=== PATIENT | male | born 1960 | race Two or more races ===

== ENCOUNTER 2023-06-04 09:35 | Outpatient (OUT) | payer OTHER, SELFPAY ==
[2023-06-04 11:11] LABS: Prostate Specific Antigen Dx 0.48 ng/mL (<=4.00)
== END 2023-06-04 09:36 | disposition home or self-care (01) ==
PROVIDERS: PCP Nurse Practitioner Family; Visit Provider Urology
DX: N40.1 Benign prostatic hyperplasia with lower urinary tract symptoms (principal)
CPT/HCPCS: 36415; 84153

== ENCOUNTER 2024-11-19 09:17 | Outpatient (OUT) | payer OTHER, SELFPAY ==
--- NOTE | 2024-11-19 09:25 | US_ITS ---
The [address] [address] Patient Name: IRMA RAMÍREZ MRN: [id number] date: 1960 Sex: M Assigned Patient Location: US Current Patient Location: US Accession/Order Number: [id number] Exam Date: 11/19/2024 11:43 Report Date: 11/19/2024 11:47 At the request of: PRISCILA ODOM Procedure: US abdominal aortic aneurysm Aortic ultrasound Reason for exam: Follow-up AAA. Comparison: Ultrasound 02/08/2022 Technique: Grayscale, spectral and color Doppler images of the abdominal aorta were obtained. Findings: Imaging of the distal aorta demonstrate fusiform type aneurysm measuring 6.6 cm in greatest dimension. The remaining visualized portions of the aorta appears normal in caliber. US/US abdominal aortic aneurysm Impression: Fusiform type abdominal aortic aneurysm measuring 6.6 cm in greatest dimension. This has increased in size since the 2021 study. Vascular surgery consultation is recommended. Impression dictated by: Manfred Colorado Jr., D.O.11/19/2024 11:47 AM Dictation Location: [place] [address] Electronically authenticated by: [id number] Y Date: 11/19/2024 11:47
== END 2024-11-19 09:18 | disposition home or self-care (01) ==
LOC: US 09:21
PROVIDERS: PCP Nurse Practitioner Family; Visit Provider Family Medicine
DX: I71.40 Abdominal aortic aneurysm, without rupture, unspecified (principal)
CPT/HCPCS: 76775

== ENCOUNTER 2024-12-10 07:21 | Outpatient (OUT) | payer OTHER, SELFPAY ==
--- OUTSIDE RECORDS SUMMARY | 2024-12-10 07:25 | XMS_ITS | CCD ---
Author Organization [facility] [employer] Care Team Providers Care Security Officers And Guards Name Role Phone REN TRAE KASANDRA Admitting Unavailable ROSS, TRAE KASANDRA Attending Unavailable ROSS, TRAE KASANDRA Primary Care Unavailable ROSS, TRAE KASANDRA Consulting Unavailable ROSS, TRAE KASANDRA Admitting Unavailable ROSS, TRAE KASANDRA Attending Unavailable ROSS, TRAE KASANDRA Primary Care Unavailable EUGENIO, DR PAK Admitting Unavailable BROWNING, DR PAK Attending Unavailable REN, TRAE KASANDRA Primary Care Unavailable BROWNING, DR PAK Consulting Unavailable SANDRA, DR VESTA Harrison Admitting Unavailable SANDRA, DR VESTA Harrison Attending Unavailable REN, TRAE KASANDRA Primary Care Unavailable HOUSTON, DR DORCAS Huizar Consulting Unavailable KUNJohanny, DR VESTA Harrison Consulting Unavailable EUGENIO, DR PAK Admitting Unavailable BROWNING, DR PAK Attending Unavailable SANDRA, DR VESTA Harrison Primary Care Unavailable EUGENIO, DR PAK Consulting Unavailable VESTA SCHWARTZ [facility] Phys[facility] [phone] Sameer BROWNING Attending Unavailable Anish MORRISON Attending Unavailable DAVION STEPHENSON Referring Unavailable JOSE DE JESUSLONG, DAVION Mckenzie Primary Care Unavailable VESTA SCHWARTZ Referring Unavailable DAVION STEPHENSON Primary Care Unavailable Jose De Jesuslong Davion KERN Primary Care Provider [phone] APRIL THOMPSON Attending Unavailable APRIL THOMPSON Referring Unavailable FURLONG, DAVION Mckenzie Primary Care Unavailable AIMEE CHOE Attending Unavailable Furlong Davion KERN Primary Care Provider DAVION STEPHENSON Attending Unavailable STEVENNGDAVION Referring Unavailable FURLONG, DAVION G Primary Care Unavailable FURLONG, DAVION Mckenzie Attending Unavailable FURLONG, DAVION G Referring Unavailable FURLONG, DAVION G Primary Care Unavailable APRIL THOMPSON Attending Unavailable STEVENNGDAVION Referring Unavailable FURLONG, DAVION G Primary Care Unavailable KATYA, MOHAMED F Attending Unavailable DAVION STEPHENSON Referring Unavailable DAVION STEPHENSON Primary Care Unavailable Medications Current Medications Medication Drug Class(es) Dates Sig (Normalized) Sig (Original) aspirin 81 mg oral tablet (13 sources) Platelet Aggregation Inhibitor, Nonsteroidal Anti-inflammatory Drug Start: 06-13-2023 End: 07-08-2024 take 1 capsule by mouth in the morning aspirin 81 mg capsule Take 81 mg by mouth in the morning. 07/08/2024 Active Start: 06-13-2023 take 1 mg by mouth e very twenty-four hours aspirin 81 mg oral capsule mg cap(s), Oral, q24hr, Refills(s) 0 Start Date: 06/13/23 Status: Ordered Repeat number: 1 famotidine 20 mg oral tablet (1 source) Histamine-2 Receptor Antagonist Start: 06-03-2023 End: 08-22-2023 take 1 tablet by mouth once daily at bedtime famotidine (PEPCID) 20 mg tablet TAKE 1 TABLET BY MOUTH ONCE DAILY AT BEDTIME 30 tablet 2 06/03/2023 08/22/2023 Discontinued (Therapy completed) rosuvastatin calcium 10 mg oral tablet (14 sources) HMG-CoA Reductase Inhibitor Start: 06-14-2022 End: 06-09-2024 rosuvastatin 10 mg Tab Refills(s) 0 Start Date: 06/14/22 Status: Ordered Repeat number: 1 Problems Active Problems Problem Classification Problem Date Documented Date Episodic/Chronic Aortic; peripheral; and visceral artery aneurysms (20 sources) Abdominal aortic aneurysm, without rupture; Translations: [Abdominal aortic aneurysm] Onset: 02-01-2022 Chronic Disorders of lipid metabolism (19 sources) Hyperlipidemia; Translations: [Mixed hyperlipidemia] Onset: 03-18-2022 10-10-2021 Chronic Hyperplasia of prostate (16 sources) Benign prostatic hyperplasia with lower urinary tract symptoms; Translations: [Benign prostatic hypertrophy with outflow obstruction] Onset: 06-10-2022 Chronic Mood disorders (13 sources) Depressive disorder; Translations: [Depression] Onset: 08-09-2022 Resolved: 02-14-2023 10-10-2021 Chronic Other nutritional; endocrine; and metabolic disorders (2 sources) Overweight in adulthood with body mass index of 25 or more but less than 30 08-01-2023 Episodic Other screening for suspected conditions (not mental disorders or infectious disease) (20 sources) Elevated prostate specific antigen [PSA]; Translations: [Encounter for screening for malignant neoplasm of prostate] Onset: 08-11-2021 Episodic Substance-related disorders (16 sources) Smoker; Translations: [Nicotine dependence] Onset: 03-18-2022 06-14-2022 Chronic Comment on above: Added secondary to d ocumentation in Social History. Unclassified (2 sources) Patient encounter status 08-01-2023 Unclassified (2 sources) Abdominal aortic aneurysm, without rupture, unspecified; Translations: [Abdominal aortic aneurysm, without rupture, unspecified] Onset: 08-09-2022 Unclassified (1 source) Infrarenal abdominal aortic aneurysm, without rupture; Translations: [Infrarenal abdominal aortic aneurysm, without rupture] Onset: 11-29-2024 Unclassified (1 source) discussion about anurysm in bladder Onset: 11-15-2024 Past or Other Problems Problem Classification Problem Date Documented Da te Episodic/Chronic Mood disorders (9 sources) Mood disorders Onset: 08-22-2023 Resolved: 11-15-2024 08-22-2023 Residual codes; unclassified (1 source) Tobacco user; Translations: [Tobacco use] 08-22-2023 Episodic Unclassified (1 source) Infrarenal abdominal aortic aneurysm, without rupture; Translations: [Infrarenal abdominal aortic aneurysm, without rupture] Onset: 11-29-2024 Results Test Name Value Interpretation Reference Range Facility Office Visiton 11-29-2024 Follow-up visit [id number] Irma Ramírez Gaye 1960 M Date Provider Department Center 11/29/2024 AIMEE ANNE CECILIA [facility] Family History Problem Relation Age of Onset Breast cancer Mother Lung cancer Father Family Status - Relation Status Age at Mother Father Sister Alive Brother Alive Level of Service:32625 MS OFFICE/OUTPATIENT NEW MODERATE MDM 45 MINUTES Reason for Visit and Comments: Hyperlipidemia [182] Normal [facility] CT CTA ABD AORTA W RUNOFFon 11-25-2024 CT CTA ABD AORTA W RUNOFF CT CTA ABD AORTA W RUNOFF CT CTA ABD AORTA W RUNOFF Clinical information: Aortic aneurysm without rupture, unspecified portion of aorta; Abdominal aortic aneurysm (AAA) without rupture, unspecified part. Peripheral arterial disease. Comparison: None PROCEDURE: CT angiogram of the abdomen and pelvis with runoff through the feet bilaterally. CT angiogram images obtained with IV contrast. Cross-sectional 3-D maximum intensity projection reformats constructed under concurrent physician supervision on a independent workstation for evaluation of arterial structures. All CT scans at this facility use dose modulation, iterative reconstruction, and/or weight based dosing when appropriate to reduce radiation dose to as low as reasonably achievable. FINDINGS: Vascular findings: Abdominal aorta: Fusiform infrarenal abdominal aortic aneurysm with eccentric mural thrombus measuring up to 5.3 cm. There is scattered atherosclerotic calcification. Celiac: Within normal limits. SMA: Within normal limits. Renal arteries: Mild atherosclerotic plaque at the ostium of the bilateral renal arteries without significant stenosis. ROSALBA: Originates from the anterior inferior aspect of the fusiform aneurysm with mild stenosis at the ostium, otherwise unremarkable. Common iliac arteries: Moderate scattered atherosclerotic plaque with moderate stenosis. Internal iliac arteries: Mild scattered atherosclerotic plaque, otherwise unremarkable. Right lower extremity: The extraluminal iliac and common femoral arteries are patent with mild atherosclerotic plaque. No significant stenosis. Normal profunda SFA bifurcation. The right SFA has mild atherosclerotic plaque at the abductor canal without significant stenosis. Right popliteal artery is patent with mild atherosclerotic calcification. There is normal three-vessel runoff to the right foot. Mild atherosclerotic calcification of the proximal anterior tibial and tibioperoneal trunk with mild stenosis. Left lower extremity: The external iliac and common femoral arteries are patent with mild atherosclerotic plaque. Normal profunda SFA bifurcation. The left SFA is normal in course and caliber with mild atherosclerotic calcification at the abductor canal without significant stenosis. Popliteal artery is patent with mild atherosclerotic calcification. Mild atherosclerotic plaque in the proximal tibioperoneal trunk and anterior tibial artery with mild stenosis. Otherwise normal three-vessel runoff to the left foot. Other findings: Atelectasis with emphysematous changes at the lung bases. There are simple cysts in the liver. Largest in the left hepatic lobe measuring 1.3 cm. No dedicated follow-up necessary. Gallbladder is unremarkable. No biliary dilatation. The pancreas, spleen, and adrenal glands are unremarkable. The kidneys enhance symmetrically. No hydronephrosis or ureteral obstruction. Urinary bladder contour is unremarkable. No intra-abdominal free air or free fluid. No small bowel obstruction. Appendix is normal. Colon is unremarkable by CT. No acute osseous abnormalities. IMPRESSION: 1. Fusiform infrarenal abdominal aortic aneurysm measuring 5.3 cm with eccentric mural thrombus. 2. Atherosclerotic calcification at the aortic bifurcation and proximal common iliac arteries causing moderate stenosis. 3. Mild scattered atherosclerotic calcification at the bilateral superficial femoral arteries and proximal tibial arteries without significant stenosis. Otherwise normal three-vessel runoff to the feet bilaterally. 4. Detailed vascular findings and additional chronic findings as above. Finalized by Hira Mcduffie MD on 11/25/2024 1:10 PM Normal [facility] COMPREHENSIVE METABOLIC PANE Vicente 07-08-2024 Albumin [Mass/Vol] 4.3 g/dL Normal 3.2-5.3 [facility] Comment on above: Performed By: #### Danilo BLANCAS, 51991-2 #### [facility] ([id number]) [address], [address] [place] [address] ALP [Catalytic activity/Vol] 59 U/L Normal 39-[address] [facility] Comment on above: Performed By: #### Danilo BLANCAS, 78863-1 #### [facility] ([id number]) [address], [address] [place] [address] ALT [Catalytic activity/Vol] 18 U/L Normal 0-[address] [facility] Comment on above: Performed By: #### Danilo BLANCAS, 82869-9 #### [facility] ([id number]) [address], [address] [place] [address] Anion gap [Moles/Vol] 8 mmol/L Normal 5-[address] [facility] Comment on above: Performed By: #### Danilo BLANCAS, 04786-1 #### [facility] ([id number]) [address], [address] [place] [address] AST [Catalytic activity/Vol] 22 U/L Normal 0-[address] [facility] Comment on above: Performed By: #### Danilo BLANCAS, 10034-9 #### [facility] ([id number]) [address], [address] [place] [address] Bilirubin [Mass/Vol] 0.5 mg/dL Normal 0.3-1.[address] [facility] Comment on above: Performed By: #### Danilo BLANCAS, 58489-4 #### [facility] ([id number]) [address], [address] [place] [address] Calcium [Mass/Vol] 9.1 mg/dL Normal 8.5-10.5 [facility] Comment on above: Performed By: #### Danilo BLANCAS, 43655-4 #### [facility] ([id number]) [address], [address] [place] [address] Chloride [Moles/Vol] 105 mmol/L Normal 98-[address] [facility] Comment on above: Performed By: #### Danilo BLANCAS, 80019-9 #### [facility] ([id number]) [address], [address] [place] [address] CO2 [Moles/Vol] 26 mmol/L Normal 22-[address] [facility] Comment on above: Performed By: #### Danilo BLANCAS, 60840-6 #### [facility] ([id number]) [address], [address] [place] [address] Creatinine [Mass/Vol] 0.68 mg/dL Normal 0.60-1.[address] [facility] Comment on above: Result Comment: METH OD TRACEABLE TO IDMS STANDARD Performed By: #### Danilo BLANCAS, 52467-7 #### [facility] ([id number]) [address], [address] [place] [address] eGFR (CKD-EPI) NON-RACE DEPENDENT >90 Normal >[address] [facility] Comment on above: Result Comment: Reported eGFR is based on the CKD-EPI 2020 equation that does not use a race coefficient. Performed By: #### Danilo BLANCAS, 61993-7 #### [facility] ([id number]) [address], [address] [place] [address] Glucose [Mass/Vol] 96 mg/dL Normal 65-99 [facility] Comment on above: Performed By: #### Danilo BLANCAS, 57444-8 #### [facility] ([id number]) [address], [address] [place] [address] Potassium [Moles/Vol] 4.4 mmol/L Normal 3.5-5.[address] [facility] Comment on above: Performed By: #### Danilo BLANCAS, 66778-9 #### [facility] ([id number]) [address], [address] [place] [address] Protein [Mass/Vol] 7.6 g/dL Normal 6.0-8.0 [facility] Comment on above: Performed By: #### Danilo BLANCAS, 91648-9 #### [facility] ([id number]) [address], [address] [place] [address] Sodium [Moles/Vol] 139 mmol/L Normal 134-146 [facility] Comment on above: Performed By: #### Danilo BLANCAS, 77195-4 #### [facility] ([id number]) [address], [address] [place] [address] Urea nitrogen [Mass/Vol] 16 mg/dL Normal 5-[address] [facility] Comment on above: Performed By: #### Danilo BLANCAS, 36975-0 #### [facility] ([id number]) [address], [address] [place] [address] Comprehensive metabolic pane vicente 07-08-2024 Albumin [Mass/Vol] 4.3 g/dL 3.2 - 5.3 g/dL [facility] ALP [Catalytic activity/Vol] 59 U/L 39 - 130 U/L [facility] ALT No additional P-5'-P [Catalytic activity/Vol] 18 U/L 0 - 40 U/L [facility] Anion gap [Moles/Vol] 8 mmol/L 5 - 15 mmol/L [facility] AST [Catalytic activity/Vol] 22 U/L 0 - 41 U/L [facility] Bilirubin [Mass/Vol] 0.5 mg/dL 0.3 - 1.2 mg/dL [facility] Calcium [Mass/Vol] 9.1 mg/dL 8.5 - 10. 5 mg/dL [facility] Chloride [Moles/Vol] 105 mmol/L 98 - 109 mmol/L [facility] CO2 [Moles/Vol] 26 mmol/L 22 - 32 mmol/L [facility] Creatinine [Mass/Vol] 0.68 mg/dL 0.60 - 1.30 mg/dL [facility] Comment on above: METHOD TRACEABLE TO [facility] STANDARD eGFR (CKD-EPI)non-race dependent - PINF [facility] Comment on above: Reported eGFR is based on the CKD-EPI 2020 equation that does not use a race coefficient. Glucose [Mass/Vol] 96 mg/dL 65 - 99 mg/dL [facility] Potassium [Moles/Vol] 4.4 mmol/L 3.5 - 5.0 mmol/L [facility] Protein [Mass/Vol] 7.6 g/dL 6.0 - 8.0 g/dL [facility] Sodium [Moles/Vol] 139 mmol/L 134 - 146 mmol/L [facility] Urea nitrogen [Mass/Vol] 16 mg/dL 5 - 27 mg/dL [facility] Lipid 1996 panelon 4 Cholesterol [Mass/Vol] 148 mg/dL Low 150 - 200 mg/dL [facility] Cholesterol in HDL [Mass/Vol] 35 mg/dL Low 39 - PINF mg/dL [facility] Comment on above: HDL <40 mg/dL - High Risk HDL > or = 40mg/dL- Desirable HDL >60 mg/dL - Negative Risk Cholesterol in LDL [Mass/Vol] 90 mg/dL NINF - 130 mg/dL [facility] Comment on above: LDL <100 mg/dL - Desirable LDL >160 mg/dL - High Risk Cholesterol in VLDL [Mass/Vol] 23 mg/dL 0 - 30 mg/dL [facility] Cholesterol.total/ Cholesterol in HDL [Mass ratio] 4.2 {ratio} 1.0 - 5.0 [facility] Interpretation and review of laboratory results Abnormal [facility] Triglyceride [Mass/Vol] 113 mg/dL 27 - 150 mg/dL [facility] Cholesterol [Mass/Vol] 148 mg/dL Low 150-[address] [facility] Comment on above: Performed By: #### Danilo BLANCAS, 38724-6 #### [facility] ([id number]) [address], [address] [place] [address] Cholesterol in HDL [Mass/Vol] 35 mg/dL Low >[address] [facility] Comment on above: Result Comment: HDL <40 mg/dL - High Risk HDL > or = 40mg/dL- Desirable HDL >60 mg/dL - Negative Risk Performed By: #### Danilo BLANCAS, 47547-2 #### [facility] ([id number]) [address], [address] [place] [address] Cholesterol in LDL [Mass/Vol] 90 mg/dL Normal <[address] [facility] Comment on above: Result Comment: LDL <100 mg/dL - Desirable LDL >160 mg/dL - High Risk Performed By: #### Danilo BLANCAS, 07780-8 #### [facility] ([id number]) [address], [address] [place] [address] Cholesterol in VLDL [Mass/Vol] 23 mg/dL Normal 0-[address] [facility] Comment on above: Performed By: #### Danilo BLANCAS, 67694-2 #### [facility] ([id number]) [address] [place] [address] CHOLESTEROL:HDL 4.2 Normal 1.0-5.[address] [facility] Comment on above: Performed By: #### Danilo BLANCAS, 23996-5 #### [facility] ([id number]) [address], [address] [place] [address] Triglyceride [Mass/Vol] 113 mg/dL Normal 27-[address] [facility] Comment on above: Performed By: #### Danilo BLANCAS, 60458-1 #### [facility] ([id number]) [address], [address] [place] [address] No Panel Informationon 07-08 [facility] COMPREHENSIVE METABOLIC PANE Vicente 08-22-2023 Albumin [Mass/Vol] 4.5 g/dL Normal 3.2-5.3 [facility] Comment on above: Performed By: #### Danilo BLANCAS, 51360-3 #### [facility] ([id number]) [address], [address] [place] [address] ALP [Catalytic activity/Vol] 65 U/L Normal 39-[address] [facility] Comment on above: Performed By: #### Danilo BLANCAS, 80469-0 #### [facility] ([id number]) [address], [address] [place] [address] ALT [Catalytic activity/Vol] 17 U/L Normal 0-[address] [facility] Comment on above: Performed By: #### Danilo BLANCAS, 36207-4 #### [facility] ([id number]) [address], [address] [place] [address] Anion gap [Moles/Vol] 7 mmol/L Normal 5-[address] [facility] Comment on above: Performed By: #### Danilo BLANCAS, 47337-2 #### [facility] ([id number]) [address], [address] [place] [address] AST [Catalytic activity/Vol] 21 U/L Normal 0-[address] [facility] Comment on above: Performed By: #### Danilo BLANCAS, 48459-7 #### [facility] ([id number]) [address] [place] [address] Bilirubin [Mass/Vol] 0.7 mg/dL Normal 0.3-1.[address] [facility] Comment on above: Performed By: #### Danilo BLANCAS 44919-5 #### [facility] ([id number]) [address], [address] [place] [address] Calcium [Mass/Vol] 9.4 mg/dL Normal 8.5-10.5 [facility] Comment on above: Performed By: #### Danilo BLANCAS 29284-8 #### [facility] ([id number]) [address], [address] [place] [address] Chloride [Moles/Vol] 103 mmol/L Normal 98-[address] [facility] Comment on above: Performed By: #### Danilo BLANCAS, 11332-4 #### [facility] ([id number]) [address], [address] [place] [address] CO2 [Moles/Vol] 25 mmol/L Normal 22-[address] [facility] Comment on above: Performed By: #### Danilo BLANCAS, 43771-1 #### [facility] ([id number]) [address] [place] [address] Creatinine [Mass/Vol] 0.71 mg/dL Normal 0.60-1.[address] [facility] Comment on above: Result Comment: METH OD TRACEABLE TO IDMS STANDARD Performed By: #### Danilo BLANCAS, 47794-4 #### [facility] ([id number]) [address] [place] [address] eGFR (CKD-EPI) NON-RACE DEPENDENT >90 Normal >[address] [facility] Comment on above: Result Comment: Reported eGFR is based on the CKD-EPI 2020 equation that does not use a race coefficient. Performed By: #### Danilo BLANCAS, 60352-3 #### [facility] ([id number]) [address] [place] [address] Glucose [Mass/Vol] 86 mg/dL Normal 65-99 [facility] Comment on above: Performed By: #### Danilo BLANCAS, 24234-6 #### [facility] ([id number]) [address] [place] [address] Potassium [Moles/Vol] 4.3 mmol/L Normal 3.5-5.[address] [facility] Comment on above: Performed By: #### Danilo BLANCAS, 74584-8 #### [facility] ([id number]) [address] [place] [address] Protein [Mass/Vol] 8.1 g/dL High 6.0-8.0 [facility] Comment on above: Performed By: #### Danilo BLANCAS, 95717-7 #### [facility] ([id number]) [address] [place] [address] Sodium [Moles/Vol] 135 mmol/L Normal 134-146 [facility] Comment on above: Performed By: #### Danilo BLANCAS, 92510-4 #### [facility] ([id number]) [address] [place] [address] Urea nitrogen [Mass/Vol] 16 mg/dL Normal 5-[address] [facility] Comment on above: Performed By: #### Danilo BLANCAS, 97092-8 #### [facility] ([id number]) [address] [place] [address] Lipid 1996 panelon 3 Cholesterol [Mass/Vol] 146 mg/dL Low 150-[address] [facility] Comment on above: Performed By: #### Danilo BLANCAS 13086-4 #### [facility] ([id number]) [address] [place] [address] Cholesterol in HDL [Mass/Vol] 32 mg/dL Low >[address] [facility] Comment on above: Result Comment: HDL <40 mg/dL - High Risk HDL > or = 40mg/dL- Desirable HDL >60 mg/dL - Negative Risk Performed By: #### Danilo BLANCAS, 14968-4 #### [facility] ([id number]) [address], [address] [place] [address] Cholesterol in LDL [Mass/Vol] 89 mg/dL Normal <[address] [facility] Comment on above: Result Comment: LDL <100 mg/dL - Desirable LDL >160 mg/dL - High Risk Performed By: #### Danilo BLANCAS, 13194-6 #### [facility] ([id number]) [address], [address] [place] [address] Cholesterol in VLDL [Mass/Vol] 25 mg/dL Normal 0-[address] [facility] Comment on above: Performed By: #### Danilo BLANCAS, 08836-7 #### [facility] ([id number]) [address] [place] [address] CHOLESTEROL:HDL 4.6 Normal 1.0-5.[address] [facility] Comment on above: Performed By: #### Danilo BLANCAS, 11553-0 #### [facility] ([id number]) [address] [place] [address] Triglyceride [Mass/Vol] 126 mg/dL Normal 27-[address] [facility] Comment on above: Performed By: #### C , 78516-3 #### [facility] ([id number]) [address] [place] [address] Ambulatory Visit Summaryon 1 10-02-2022 Ambulatory Visit Summary IRMA RAMÍREZ :1960 Visit Date:08/01/2023 Ambulatory Visit Instructions Your Diagnosis Screening for malignant neoplasm of colon Your Care Team Attending Physician - Anish MORRISON MD Primary Care Physician - VESTA SCHWARTZ CNP This Is Your Medications List Contact prescribing physician if questions or concerns aspirin (aspirin 81 mg oral capsule) rosuvastatin (rosuvastatin 10 mg Tab) Procedures Performed None. Discharge Vitals Heart Rate (Peripheral) 76 Respiratory Rate 16 Blood Pressure 156/90 Height 175 cm Height 69 in Weight 79.2 kg Weight 174.24 lb BMI 25.86 Medications What How Much When Instructions Unchanged aspirin (aspirin 81 mg oral capsule) Every 24 hours Contact prescribing physician if questions or concerns Unchanged rosuvastatin (rosuvastatin 10 mg Tab) Contact prescribing physician if questions or concerns Medications and Immunizations Administered Not Given influenza virus vaccine, inactivated, Patient Refuses Allergies No Known Allergies Problems Ongoing - Any problem that you are currently receiving treatment for. AAA (abdominal aortic aneurysm) BMI 25.0-25.9,adult BPH with obstruction/lower urinary tract symptoms Depression Elevated PSA Hyperlipidemia Screening for malignant neoplasm of colon Smoker Patient Survey You may receive a survey via text or e-mail asking about your office visit. Please share your experience with us by completing your survey. We appreciate your feedback and thank you for choosing us for your care. [facility] Ambulatory Visit Summaryon 1 Ambulatory Visit Summary IRMA RAMÍREZ :1960 Visit Date:06/13/2023 Ambulatory Visit Instructions Your Diagnosis BPH with obstruction/lower urinary tract symptoms Tests Performed Urnls Dip Stick Auto w/o Microscopy POC 96739 Your Care Team Attending Physician - EUGENIO DEVINE, Sameer Harrison Primary Care Physician - VESTA SCHWARTZ CNP This Is Your Medications List Contact prescribing physician if questions or concerns aspirin (aspirin 81 mg oral capsule) rosuvastatin (rosuvastatin 10 mg Tab) Discharge Vitals Heart Rate (Peripheral) 65 Respiratory Rate 16 Blood Pressure 136/80 Height 175 cm Height 69 in Weight 76.4 kg Weight 168.08 lb BMI 24.95 What to do next You Need to Schedule the Following Appointments Follow Up with EUGENIO DEVINE, KIRK Hinton When: Comments: 2 yrs w/ PSA Where: [facility] [address] [place] [address] [phone] Medications What How Much When Instructions Unchanged aspirin (aspirin 81 mg oral capsule) Every 24 hours Contact prescribing physician if questions or concerns Unchanged rosuvastatin (rosuvastatin 10 mg Tab) Contact prescribing physician if questions or concerns Test Results Urnls Dip Stick Auto w/o Microscopy POC 68379 (06/13/2023) Bilirubin Urine Dipstick - Negative Blood Urine Dipstick - Negative Glucose Urine Dipstick - Negative Ketones Urine Dipstick - Negative Leukocytes Urine Dipstick - Negative Nitrite Urine Dipstick - Negative Protein Urine Dipstick - Negative Specific [place] Urine Dipstick - >=1.030 Urine Appearance Urine Dipstick - Clear Urine Color Urine Dipstick - Dark yellow Urobilinogen Urine Dipstick - Normal 0.2-1 EU/dl pH Urine Dipstick - 5.5 Allergies No Known Allergies Problems Ongoing - Any problem that you are currently receiving treatment for. AAA (abdominal aortic aneurysm) BPH with obstruction/lower urinary tract symptoms Depression Elevated PSA Hyperlipidemia Smoker Education Materials Benign Prostatic Hyperplasia Benign prostatic hyperplasia (BPH) is an enlarged prostate gland that is caused by the normal aging process. The prostate may get bigger as a man gets older. The condition is not caused by cancer. The prostate is a walnut-sized gland that is involved in the production of semen. It is located in front of the rectum and below the bladder. The bladder stores urine. The urethra carries stored urine out of the body. An enlarged prostate can press on the urethra. This can make it harder to pass urine. The buildup of urine in the bladder can cause infection. Back pressure and infection may progress to bladder damage and kidney (renal) failure. What are the causes? This condition is part of the normal aging process. However, not all men develop problems from this condition. If the prostate enlarges away from the urethra, urine flow will not be blocked. If it enlarges toward the urethra and compresses it, there will be problems passing urine. What increases the risk? This condition is more likely to develop in men older than 50 years. What are the signs or symptoms? Symptoms of this condition include: ? Getting up often during the night to urinate. ? Needing to urinate frequently during the day. ? Difficulty starting urine flow. ? Decrease in size and strength of your urine stream. ? Leaking (dribbling) after urinating. ? Inability to pass urine. This needs immediate treatment. ? Inability to completely empty your bladder. ? Pain when you pass urine. This is more common if there is also an infection. ? Urinary tract infection (UTI). How is this diagnosed? This condition is diagnosed based on your medical history, a physical exam, and your symptoms. Tests will also be done, such as: ? A post-void bladder scan. This measures any amount of urine that may remain in your bladder after you finish urinating. ? A digital rectal exam. In a rectal exam, your health care provider checks your prostate by putting a lubricated, gloved finger into your rectum to feel the back of your prostate gland. This exam detects the size of your gland and any abnormal lumps or growths. ? An exam of your urine (urinalysis). ? A prostate specific antigen (PSA) screening. This is a blood test used to screen for prostate cancer. ? An ultrasound. This test uses sound waves to electronically produce a picture of your prostate gland. Your health care provider may refer you to a specialist in kidney and prostate diseases (urologist). How is this treated? Once symptoms begin, your health care provider will monitor your condition (active surveillance or watchful waiting). Treatment for this condition will depend on the severity of your condition. Treatment may include: ? Observation and yearly exams. This may be the only treatment needed if your condition and symptoms are mild. ? Medicines to relieve your symptoms, (more content not included)... Normal [facility] Lab Reportson 06-13-2023 Lab Reports [id number] IFF Normal [facility] Patient Educationon 06-13-20 Patient Education Urology Benign Prostatic Hyperplasia Benign prostatic hyperplasia (BPH) is an enlarged prostate gland that is caused by the normal aging process. The prostate may get bigger as a man gets older. The condition is not caused by cancer. The prostate is a walnut-sized gland that is involved in the production of semen. It is located in front of the rectum and below the bladder. The bladder stores urine. The urethra carries stored urine out of the body. An enlarged prostate can press on the urethra. This can make it harder to pass urine. The buildup of urine in the bladder can cause infection. Back pressure and infection may progress to bladder damage and kidney (renal) failure. What are the causes? This condition is part of the normal aging process. However, not all men develop problems from this condition. If the prostate enlarges away from the urethra, urine flow will not be blocked. If it enlarges toward the urethra and compresses it, there will be problems passing urine. What increases the risk? This condition is more likely to develop in men older than 50 years. What are the signs or symptoms? Symptoms of this condition include: ? Getting up often during the night to urinate. ? Needing to urinate frequently during the day. ? Difficulty starting urine flow. ? Decrease in size and strength of your urine stream. ? Leaking (dribbling) after urinating. ? Inability to pass urine. This needs immediate treatment. ? Inability to completely empty your bladder. ? Pain when you pass urine. This is more common if there is also an infection. ? Urinary tract infection (UTI). How is this diagnosed? This condition is diagnosed based on your medical history, a physical exam, and your symptoms. Tests will also be done, such as: ? A post-void bladder scan. This measures any amount of urine that may remain in your bladder after you finish urinating. ? A digital rectal exam. In a rectal exam, your health care provider checks your prostate by putting a lubricated, gloved finger into your rectum to feel the back of your prostate gland. This exam detects the size of your gland and any abnormal lumps or growths. ? An exam of your urine (urinalysis). ? A prostate specific antigen (PSA) screening. This is a blood test used to screen for prostate cancer. ? An ultrasound. This test uses sound waves to electronically produce a picture of your prostate gland. Your health care provider may refer you to a specialist in kidney and prostate diseases (urologist). How is this treated? Once symptoms begin, your health care provider will monitor your condition (active surveillance or watchful waiting). Treatment for this condition will depend on the severity of your condition. Treatment may include: ? Observation and yearly exams. This may be the only treatment needed if your condition and symptoms are mild. ? Medicines to relieve your symptoms, including: ? Medicines to shrink the prostate. ? Medicines to relax the muscle of the prostate. ? Surgery in severe cases. Surgery may include: ? Prostatectomy. In this procedure, the prostate tissue is removed completely through an open incision or with a laparoscope or robotics. ? Transurethral resection of the prostate (TURP). In this procedure, a tool is inserted through the opening at the tip of the penis (urethra). It is used to cut away tissue of the inner core of the prostate. The pieces are removed through the same opening of the penis. This removes the blockage. ? Transurethral incision (TUIP). In this procedure, small cuts are made in the prostate. This lessens the prostate's pressure on the urethra. ? Transurethral microwave thermotherapy (TUMT). This procedure uses microwaves to create heat. The heat destroys and removes a small amount of prostate tissue. ? Transurethral needle ablation (TUNA). This procedure uses radio frequencies to destroy and remove a small amount of prostate tissue. ? Interstitial laser coagulation (ILC). This procedure uses a laser to destroy and remove a small amount of prostate tissue. ? Transurethral electrovaporization (TUVP). This procedure uses electrodes to destroy and remove a small amount of prostate tissue. ? Prostatic urethral lift. This procedure inserts an implant to push the lobes of the prostate away from the urethra. Follow these instructions at home: ? Take jepu-[id number]-[id number] and prescription medicines only as told by your health care provider. ? Monitor your symptoms for any changes. Contact your health care provider with any changes. ? Avoid drinking large amounts of liquid before going to bed or out in public. ? Avoid or reduce how much caffeine or alcohol you drink. ? Give yourself time when you urinate. ? Keep all follow-up visits. This is important. Contact a health care provider if: ? You have unexplained back pain. ? Your symptoms do not get better with treatment. ? You develop side effects from the medicine (more content not included)... Normal [facility] Urology Office/Clinic Noteon 06-13-2023 Urology Office/Clinic Note Chief Complaint BPH with urinary obstruction HPI Staff 62 yo male here for 1 yr f/u. Previous Dx: enlarged prostate with urinary obstruction. Previous PSA 06/06/22 was 0.60. Current PSA 06/04/23 is 0.48. Dysuria: no Incomplete bladder emptying: no Hematuria: no Frequency: no Urgency: no Nocturia: 1x Stream: no straining or intermittency Leaking: no Post void dripping: no Wearing pads/ Depends: no Urge incontinence: no Stress incontinence: no Incontinence without Sensory Awareness: no Abdominal pain: no Flank pain: no Sexual complaints: no History of Present Illness Tests reviewed: reviewed UA, PSA I have reviewed the previous health record information and history for this patient from Dr. Browning. I have reviewed and verified the staff HPI to be accurate for this encounter. Review of Systems PHQ Score Initial Depression Screen Score: 0 ROS - Provider Constitutional: denies weight loss, denies hot flashes. Eyes: denies eye problems. Gastrointestinal: denies nausea, denies vomiting. Cardiovascular: denies chest pain or angina. Integumentary: no dryness Musculoskeletal: denies musculoskeletal symptoms. ENMT: denies otolaryngeal symptoms. Respiratory: no shortness of breath. Heme/Lymph: denies easy bleeding tendency, denies easy bruising tendency. Psychiatric: no confusion, no anxiety. Genitourinary: See HPI. Physical Exam Vitals & Measurements HR: 65(Peripheral) RR: 16 BP: 136/80 HT: 69 in HT: 175 cm WT: 76.4 kg WT: 168.08 lb BMI: 24.95 General Appearance: alert, no distress, well nourished, well developed male. Genitourinary: normal scrotum, normal testes, normal urethra, normal epididymis, normal vas deferens/spermatic cord. Flank Pain: none. Bladder: nonpalpable. Prostate: normal prostate, estimated weight 40 gms, no hard nodule observed. Assessment/Plan Irma is a 62 yo male here for 1 yr f/u with PSA. Follows with Vesta Schwartz NP (PCP). Does not have DREs done by PCP. Reports he has never had a colonoscopy. Recommended pt to complete this, will have pt schedule one today. 1. BPH with obstruction/lower urinary tract symptoms (N40.1: Benign prostatic hyperplasia with lower urinary tract symptoms) PSA 10/05/21 - 0.40 and 40% 06/06/22 - 0.60 06/04/23 - 0.48 Denies known family hx of prostate ca. ADE today: 40gms, benign Not currently taking and BPH meds. Good stream. Feels he empties completely. Denies nocturia. Denies any gross hematuria. UA today negative for blood and infection. Follow up with PSA in 2 years or sooner if needed. All questions/concerns were discussed. Pt to call the office if he encounters any issues prior. Pt acknowledges understanding. -pt knows to call if urinary sxs change prior to next appt Follow-up With When Contact Information EUGENIO DEVINE, Sameer Harrison, [facility] [address], [place] [address] [phone] Additional Instructions: 2 yrs w/ PSA Patient Education Benign Prostatic Hyperplasia I, Urvashi Stoddard, personally scribed for Dr. Browning on 06/13/2023 10:51:36. . Documentation recorded by the scribe, Urvashi Stoddard, accurately reflects the services(s) I performed and decisions made by me. Authenticated by Dr. Browning on 06/13/2023 10:53:12. Problem List/Past Medical History Ongoing AAA (abdominal aortic aneurysm) BPH with obstruction/lower urinary tract symptoms Depression Elevated PSA Hyperlipidemia Smoker Historical No qualifying data Medications aspirin 81 mg oral capsule, Oral, q24hr rosuvastatin 10 mg Tab Allergies No Known Allergies Social History Tobacco 5-9 cigarettes (between 1/4 to 1/2 pack)/day in last 30 days, Smoker, current status unknown Tobacco Use:. Never Smokeless Tobacco Use:. Cigarettes, Yes, 06/14/2022 Family History Arthritis: Father. Breast cancer: Mother. Cancer: Father. High cholesterol: Mother. Hypertension: Mother. Stroke: Father. Immunizations Vaccine Date Status Comments SARS-CoV-2 mRNA (tozinameran 5y-11y) vac - Not Given Patient Refuses Lab Results Ambulatory Point of Care Results Bilirubin Urine Dipstick: Negative (06/13/23 10:16:00) Blood Urine Dipstick: Negative (06/13/23 10:16:00) Glucose Urine Dipstick: Negative (06/13/23 10:16:00) Ketones Urine Dipstick: Negative (06/13/23 10:16:00) Leukocytes Urine Dipstick: Negative (06/13/23 10:16:00) Nitrite Urine Dipstick: Negative (06/13/23 10:16:00) Protein Urine Dipstick: Negative (06/13/23 10:16:00) Specific [place] Urine Dipstick: >=1.030 (06/13/23 10:16:00) Urine Appearance Urine Dipstick: Clear (06/13/23 10:16:00) Urine Color Urine Dipstick: Dark yellow (06/13/23 10:16:00) Urobilinogen Urine Dipstick: Normal 0.2-1 EU/dl (06/13/23 10:16:00) pH Urine Dipstick: 5.5 (06/13/23 10:16:00) Normal [facility] Comment on above: Result Comment: Elec tronically Signed By: Sameer BROWNING MD\.br\Date and Time Signed: 06/13/23 10:53 EDT\.br\Electronically Co-Signed By: Urvashi Stoddard\.br\Date and Time Co-Signed: 06/13/23 10:51 EDT Lab Reportson 06-09-2023 Lab Reports [id number] IFF Normal [facility] COMPREHENSIVE METABOLIC PANE Vicente 03-21-2022 Albumin [Mass/Vol] 4.5 g/dL Normal 3.6-5.1 [facility] Comment on above: Performed By: #### 7 600, 94702, 5327 #### [facility] [address], [address] [place] [phone] Microbiology Director: Sher López MD Albumin/Globulin [Mass ratio] 1.6 {ratio} Normal 1.0-2.5 [facility] Comment on above: Performed By: #### 7 600, 68076, 5335 #### [facility] [address], [address] [place] [phone] Microbiology Director: Sher López MD ALP [Catalytic activity/Vol] 58 U/L Normal 35-144 [facility] Comment on above: Performed By: #### 7 600, 18739, 5363 #### [facility] [place] [address] Microbiology Director: Sher López MD ALT [Catalytic activity/Vol] 13 U/L Normal 9-46 [facility] Comment on above: Performed By: #### 7 600, , 5363 #### [facility] [place] [address] Microbiology Director: Sher López MD AST [Catalytic activity/Vol] 17 U/L Normal 10-35 [facility] Comment on above: Performed By: #### 7 600, , 5363 #### [facility] [place] [address] Microbiology Director: Sher López MD Bilirubin [Mass/Vol] 0.5 mg/dL Normal 0.2-1.2 [facility] Comment on above: Performed By: #### 7 600, , 5363 #### [facility] [place] [address] Microbiology Director: Sher López MD Calcium [Mass/Vol] 8.7 mg/dL Normal 8.6-10.3 [facility] Comment on above: Performed By: #### 7 600, 08982, 5363 #### [facility] [place] [address] Microbiology Director: Sher López MD Chloride [Moles/Vol] 106 mmol/L Normal 98-110 [facility] Comment on above: Performed By: #### 7 600, 02481, 5363 #### [facility] [place] [address] Microbiology Director: Sher López MD CO2 [Moles/Vol] 23 mmol/L Normal 20-32 [facility] Comment on above: Performed By: #### 7 600, 02873, 5363 #### [facility] [place] [address] Microbiology Director: Sher López MD Creatinine [Mass/Vol] 0.68 mg/dL Low 0.70-1.35 [facility] Comment on above: Performed By: #### 7 600, 55388, 5363 #### [facility] [place] [address] Microbiology Director: Sher López MD GFR/1.73 sq M.predicted among non-blacks MDRD (S/P/Bld) [Vol rate/Area] 106 mL/min/{1.73_m2} Normal > OR = 60 [facility] Comment on above: Result Comment: The eGFR is based on the CKD-EPI 2020 equation. To calculate the new eGFR from a previous Creatinine or Cystatin C result, go to https://www.kidney.org/professionals/ kdoqi/gfr%5Fcalculator Performed By: #### 7 600, 18944, 5363 #### [facility] [place] [address] Microbiology Director: Sher López MD Globulin (S) [Mass/Vol] 2.9 g/dL Normal 1.9-3.7 [facility] Comment on above: Performed By: #### 7 600, 12097, 5363 #### [facility] [place] [address] Microbiology Director: Sher López MD Glucose [Mass/Vol] 100 mg/dL High 65-99 [facility] Comment on above: Result Comment: Fasting reference interval For someone without known diabetes, a glucose value between 100 and 125 mg/dL is consistent with prediabetes and should be confirmed with a follow-up test. Performed By: #### 7 600, 59617, 5363 #### [facility] [place] [address] Microbiology Director: Sher López MD Potassium [Moles/Vol] 3.9 mmol/L Normal 3.5-5.3 [facility] Comment on above: Performed By: #### 7 600, 03447, 5363 #### [facility] of [address], [address] [place] [address] Microbiology Director: Sher López MD Protein [Mass/Vol] 7.4 g/dL Normal 6.1-8.1 [facility] Comment on above: Performed By: #### 7 600, 10223, 5363 #### [facility] of [address], [address] [place] [address] Microbiology Director: Sher López MD Sodium [Moles/Vol] 136 mmol/L Normal 135-146 [facility] Comment on above: Performed By: #### 7 600, 39184, 5363 #### [facility] [place] [address] Microbiology Director: Sher López MD Urea nitrogen [Mass/Vol] 13 mg/dL Normal 7-25 [facility] Comment on above: Performed By: #### 7 600, 34145, 5363 #### [facility] [place] [address] Microbiology Director: Sher López MD Urea nitrogen/Creatinin e [Mass ratio] 19 mg/mg Normal 6-22 [facility] Comment on above: Performed By: #### 7 600, 52099, 5363 #### [facility] [place] [address] Microbiology Director: Sher López MD LIPID PANEL, [facility] 07- Cholesterol [Mass/Vol] 206 mg/dL High <200 [facility] Comment on above: Order Comment: FASTI NG:YES FASTING: YES Performed By: #### 7 600, 01377, 5363 #### [facility] [place] [address] Microbiology Director: Sher López MD Cholesterol in HDL [Mass/Vol] 36 mg/dL Low > OR = 40 [facility] Comment on above: Order Comment: FASTI NG:YES FASTING: YES Performed By: #### 7 600, 26479, 5363 #### [facility] [place] [address] [place] [address] Microbiology Director: Sher López MD Cholesterol in LDL [Mass/Vol] 142 mg/dL High [facility] Comment on above: Order Comment: FASTI NG:YES FASTING: YES Result Comment: Refe rence range: <100 Desirable range <100 mg/dL for primary prevention; <70 mg/dL for patients with CHD or diabetic patients with > or = 2 CHD risk factors. LDL-C is now calculated using the Horacio calculation, which is a validated novel method providing better accuracy than the Friedewald equation in the estimation of LDL-C. Wali SS et al. CLAUDETTE. 2013;310(19): 8308-3469 (http://education.3Sourcing/faq/ANV902) Performed By: #### 7 600, 65084, 5363 #### [facility] [address], [address] [place] [address] Microbiology Director: Sher López MD Cholesterol.total/ Cholesterol in HDL [Mass ratio] 5.7 {ratio} High <5.0 [facility] Comment on above: Order Comment: FASTI NG:YES FASTING: YES Performed By: #### 7 600, 39771, 5363 #### [facility] [place] [address] Microbiology Director: Sher López MD NON HDL CHOLESTEROL 170 mg/dL (calc) High <130 [facility] Comment on above: Order Comment: FASTI NG:YES FASTING: YES Result Comment: For patients with diabetes plus 1 major ASCVD risk factor, treating to a non-HDL-C goal of <100 mg/dL (LDL-C of <70 mg/dL) is considered a therapeutic option. Performed By: #### 7 600, 11962, 5363 #### [facility] [address], [address] [place] [address] Microbiology Director: Sher López MD Triglyceride [Mass/Vol] 152 mg/dL High <150 [facility] Comment on above: Order Comment: FASTI NG:YES FASTING: YES Performed By: #### 7 600, 01417, 5363 #### [facility] [address], [address] [place] [address] Microbiology Director: Sher López MD PSA, TOTALon 03-21-2022 PSA, TOTAL 0.41 ng/mL Normal < OR = 4.00 [facility] Comment on above: Result Comment: The total PSA value from this assay system is standardized against the WHO standard. The test result will be approximately 20% lower when compared to the equimolar-standardized total PSA ([place]). Comparison of serial PSA results should be interpreted with this fact in mind. This test was performed using the Siemens chemiluminescent method. Values obtained from different assay methods cannot be used interchangeably. PSA levels, regardless of value, should not be interpreted as absolute evidence of the presence or absence of disease. Performed By: #### 7 600, 15311, 5319 #### [facility] [address], [address] [place], [place] [phone] Microbiology Director: Sher López MD US ABD AORTA DIAGNOSTICon US ABD AORTA DIAGNOSTIC EXAMINATION: US ABD AORTA DIAGNOSTIC HISTORY: Abdominal aortic aneurysm without rupture COMPARISON: No relevant comparison available. TECHNIQUE: Ultrasound examination of the retroperitoneal area was performed, with a focused evaluation of the abdominal aorta. FINDINGS: Proximal aorta: 2.6 x 2.8 cm Mid aorta: 2.3 x 2.8 cm Distal aorta: 4.5 x 4.4 cm. Right common iliac artery: 1.5 x 1.6 cm Left common iliac artery: 2.1 x 0.8 cm Mild to moderate scattered atherosclerosis. Normal color and Doppler flow IMPRESSION: Fusiform aneurysm of the distal abdominal aorta measuring 4.5 x 4.4 cm Electronically authenticated by: DORCAS HENRY Date: 2022-02-08 18:00 Normal [facility] PSA, FREE AND TOTAL RATIOon 10-09-2021 % Free PSA 40.0 % Normal [facility] Comment on above: Result Comment: The table below lists the probability of prostate cancer for men with non-suspicious ADE results and total PSA between 4 and 10 ng/mL, by patient age (Ashely et al, CLAUDETTE 1998, 279:1542). % Free PSA 50-64 yr 65-75 yr 0.00-10.00% 56% 55% 10.01-15.00% 24% 35% 15.01-20.00% 17% 23% 20.01-25.00% 10% 20% >25.00% 5% 9% Please note: Ashely et al did not make specific recommendations regarding the use of percent free PSA for any other population of men. Performed By: #### P SAFREE #### [facility] [address] [place] [address] Dr. Vanessa Ordonez Prostate specific Ag [Mass/Vol] 0.4 ng/mL Normal 0.0-4.0 [facility] Comment on above: Result Comment: Rosalio BRUNO methodology. . According to the [employer], Serum PSA should decrease and remain at undetectable levels after radical prostatectomy. The AUA defines biochemical recurrence as an initial PSA value 0.2 ng/mL or greater followed by a subsequent confirmatory PSA value 0.2 ng/mL or greater. Values obtained with different assay methods or kits cannot be used interchangeably. Results cannot be interpreted as absolute evidence of the presence or absence of malignant disease. Performed By: #### P SAFREE #### [facility] [address] [place] [address] Dr. Vanessa Ordonez PSA, Free 0.16 ng/mL Normal N/A [facility] Comment on above: Result Comment: Rosalio BRUNO methodology. Performed By: #### P SAFREE #### [facility] [address] [place] [address] Dr. Vanessa Ordonez CBC AUTO DIFFon 08-06-2021 BASO # 0.0 103/ul Normal 0.0-0.1 [facility] Comment on above: Performed By: #### C BC #### [facility] [address] [place] [address] Dr. Vanessa Ordonez Basophils/100 WBC (Bld) 0.6 % Normal 0.2-2.0 [facility] Comment on above: Performed By: #### C BC #### [facility] [address] [place] [address] Dr. Vanessa Ordonez EO # 0.1 103/ul Normal 0.0-0.7 [facility] Comment on above: Performed By: #### C BC #### [facility] [address] [place] [address] Dr. Vanessa Ordonez Eosinophils/100 WBC (Bld) 2.2 % Normal 0.9-7.0 [facility] Comment on above: Performed By: #### C BC #### [facility] [address] [place] [address] Dr. Vanessa Ordonez Erythrocyte distribution width (RBC) [Ratio] 13.4 % Normal 11.0-15.0 [facility] Comment on above: Performed By: #### C BC #### [facility] [address] [place] [address] Dr. Vanessa Ordonez Hematocrit (Bld) [Volume fraction] 43.9 % Normal 42.0-54.0 [facility] Comment on above: Performed By: #### C BC #### [facility] [address] [place] [address] Dr. Vanessa Ordonez Hemoglobin (Bld) [Mass/Vol] 14.4 g/dL Normal 14.0-18.0 [facility] Comment on above: Performed By: #### C BC #### [facility] [address] [place] [address] Dr. Vanessa Ordonez IG # 0.02 10e3/ul Normal 0.00-0.03 [facility] Comment on above: Performed By: #### C BC #### [facility] [address] [place] [address] Dr. Vanessa Ordonez IG % 0.4 % Normal 0.0-0.5 [facility] Comment on above: Performed By: #### C BC #### [facility] [address] [place] [address] Dr. Vanessa Ordonez LYMPH # 1.9 103/ul Normal 1.2-3.8 [facility] Comment on above: Performed By: #### C BC #### [facility] [address] [place] [address] Dr. Vanessa Ordonez Lymphocytes/100 WBC (Bld) 35.3 % Normal 20.5-60.0 [facility] Comment on above: Performed By: #### C BC #### [facility] [address] [place] [address] Dr. Vanessa Ordonez MANUAL DIFF REQ NO Normal [facility] Comment on above: Performed By: #### C BC #### [facility] [address] [place] [address] Dr. Vanessa Ordonez MCH (RBC) [Entitic mass] 29.4 pg Normal 25.9-34.0 [facility] Comment on above: Performed By: #### C BC #### [facility] [address] [place] [address] Dr. Vanessa Ordonez MCHC (RBC) [Mass/Vol] 32.8 g/dL Normal 29.9-35.2 [facility] Comment on above: Performed By: #### C BC #### [facility] [address] [place] [address] Dr. Vanessa Ordonez MCV (RBC) [Entitic vol] 89.8 fL Normal 80.0-94.0 [facility] Comment on above: Performed By: #### C BC #### [facility] [address] [place] [address] Dr. Vanessa Ordonez MONO # 0.7 103/ul Normal 0.3-0.8 [facility] Comment on above: Performed By: #### C BC #### [facility] [address] [place] [address] Dr. Vanessa Ordonez Monocytes/100 WBC (Bld) 12.8 % Critically high 1.7-12.0 [facility] Comment on above: Performed By: #### C BC #### [facility] [address] [place] [address] Dr. Vanessa Ordonez NEUT # 2.6 103/ul Normal 1.4-6.5 [facility] Comment on above: Performed By: #### C BC #### [facility] [address] [place] [address] Dr. Vanessa Ordonez Neutrophils/100 WBC (Bld) 48.7 % Normal 43.0-75.0 [facility] Comment on above: Performed By: #### C BC #### [facility] [address] [place] [address] Dr. Vanessa Ordonez Platelet mean volume (Bld) [Entitic vol] 10.6 fL Normal 9.5-13.5 [facility] Comment on above: Performed By: #### C BC #### [facility] [address] [place] [address] Dr. Vanessa Ordonez PLT 163 103/ul Normal 150-450 [facility] Comment on above: Performed By: #### C BC #### [facility] [address] [place] [address] Dr. Vanessa Ordonez RBC 4.89 106/ul Normal 4.70-6.10 [facility] Comment on above: Performed By: #### C BC #### [facility] [address] [place] [address] Dr. Vanessa Ordonez WBC 5.4 103/ul Normal 4.0-11.0 [facility] Comment on above: Performed By: #### C BC #### [facility] [address] [place] [address] Dr. Vanessa Ordonez LIPID PROFILEon 08-06-2021 CHOL-HDL RATIO NORM SEE BELOW Normal [facility] Comment on above: Result Comment: 3.3 - 4.4 LOW RISK 4.4 - 7.1 AVERAGE RISK 7.1 - 11.0 MODERATE RISK >11.0 HIGH RISK Performed By: #### C MP, LIPID #### [facility] [address] [place] [address] Dr. Vanessa Ordonez Cholesterol [Mass/Vol] 138 mg/dL Normal <=200 [facility] Comment on above: Performed By: #### C MP, LIPID #### [facility] [address] [place] [address] Dr. Vanessa Ordonez Cholesterol in HDL [Mass/Vol] 41 mg/dL Normal [facility] Comment on above: Performed By: #### C MP, LIPID #### [facility] [address] [place] [address] Dr. Vanessa Ordonez Cholesterol in LDL [Mass/Vol] 85.6 mg/dL Normal [facility] Comment on above: Performed By: #### C MP, LIPID #### [facility] [address] [address] [address] Vanessa Ordonez Cholesterol.total/ Cholesterol in HDL [Mass ratio] 3.4 {ratio} Normal [facility] Comment on above: Performed By: #### C MP, LIPID #### [facility] [address] [address] [address] Vanessa Ordonez HDL NORMAL > or = 60 mg/dl - LO W CARDIOVASCULAR RISK <40 mg/dl - HIGH CARDIOVASCULAR RISK Normal [facility] Comment on above: Performed By: #### C MP, LIPID #### [facility] [address] [address] [address] Vanessa Ordonez LDL CALC NORMAL SEE BELOW Normal [facility] Comment on above: Result Comment: <100 mg/dl OPTIMAL 100 - 129 mg/dl NEAR OR ABOVE OPTIMAL 130 - 159 mg/dl BORDERLINE HIGH 160 - 189 mg/dl HIGH >190 mg/dl VERY HIGH Performed By: #### C MP, LIPID #### [facility] [address] [place] [address] Dr. Vanessa Ordonez Triglyceride [Mass/Vol] 57 mg/dL Normal <=150 [facility] Comment on above: Performed By: #### C MP, LIPID #### [facility] [address] [address] [address] Vanessa Ordonez VLDL CALC 11.4 mg/dL Normal [facility] Comment on above: Performed By: #### C MP, LIPID #### [facility] [address] [address] [address] Vanessa Ordonez PROF 14(COMP METB)on 021 Albumin [Mass/Vol] 3.7 g/dL Normal 3.5-5.0 [facility] Comment on above: Performed By: #### C MP, LIPID #### [facility] [address] [place] [address] Dr. Vanessa Ordonez Albumin/Globulin [Mass ratio] 1.0 {ratio} Normal [facility] Comment on above: Performed By: #### C MP, LIPID #### [facility] [address] [address] [address] Vanessa Ordonez ALP [Catalytic activity/Vol] 66 U/L Normal 38-126 [facility] Comment on above: Performed By: #### C MP, LIPID #### [facility] [address] [address] [address] Vanessa Ordonez ALT [Catalytic activity/Vol] 23 U/L Normal 21-72 [facility] Comment on above: Performed By: #### C MP, LIPID #### [facility] [address] [address] [address] Vanessa Ordonez Anion gap [Moles/Vol] 12.5 mmol/L Normal [facility] Comment on above: Performed By: #### C MP, LIPID #### [facility] [address] [address] [address] Vanessa Ordonez AST [Catalytic activity/Vol] 24 U/L Normal 17-59 [facility] Comment on above: Performed By: #### C MP, LIPID #### [facility] [address] [address] [address] Vanessa Ordonez Bilirubin [Mass/Vol] 0.6 mg/dL Normal 0.2-1.3 [facility] Comment on above: Performed By: #### C MP, LIPID #### [facility] [address] [address] [address] Vanessa Ordonez Calcium [Mass/Vol] 8.8 mg/dL Normal 8.4-10.2 [facility] Comment on above: Performed By: #### C MP, LIPID #### [facility] [address] [address] [address] Vanessa Ordonez Chloride [Moles/Vol] 100 mmol/L Normal 98-107 [facility] Comment on above: Performed By: #### C MP, LIPID #### [facility] [address] [address] [address] Vanessa Ordonez CO2 [Moles/Vol] 27.4 mmol/L Normal 22.0-30.0 [facility] Comment on above: Performed By: #### C MP, LIPID #### [facility] [address] [address] [address] Vanessa Ordonez Creatinine [Mass/Vol] 0.68 mg/dL Normal 0.66-1.25 [facility] Comment on above: Performed By: #### C MP, LIPID #### [facility] [address] [address] [address] Vanessa Ordonez EGFR-AF SYRIAN >60 Normal >=60 [facility] Comment on above: Performed By: #### C MP, LIPID #### [facility] [address] [address] [address] Vanessa Ordonez EGFR-NON AF SYRIAN >60 Normal >=60 [facility] Comment on above: Performed By: #### C MP, LIPID #### [facility] [address] [address] [address] Vanessa Ordonez Globulin (S) [Mass/Vol] 3.6 g/dL Normal [facility] Comment on above: Performed By: #### C MP, LIPID #### [facility] [address] [address] [address] Vanessa Ordonez Glucose [Mass/Vol] 86 mg/dL Normal 74-106 [facility] Comment on above: Performed By: #### C MP, LIPID #### [facility] [address] [address] [address] Vanessa Ordonez Potassium [Moles/Vol] 3.9 mmol/L Normal 3.4-5.0 [facility] Comment on above: Performed By: #### C MP, LIPID #### [facility] [address] [address] [address] Vanessa Ordonez Protein [Mass/Vol] 7.3 g/dL Normal 6.1-8.2 [facility] Comment on above: Performed By: #### C MP, LIPID #### [facility] [address] [address] [address] Vanessa Ordonez Sodium [Moles/Vol] 136 mmol/L Critically low 137-145 [facility] Comment on above: Performed By: #### C MP, LIPID #### [facility] [address] [address] [address] Vanessa Ordonez Urea nitrogen [Mass/Vol] 15.0 mg/dL Normal 9.0-20.0 [facility] Comment on above: Performed By: #### C MP, LIPID #### [facility] [address] [place], [place] [address] Dr. Vanessa Ordonez Urea nitrogen/Creatinin e [Mass ratio] 22.1 mg/mg Normal [facility] Comment on above: Performed By: #### C MP, LIPID #### [facility] [address] [place], [place] [address] Dr. Vanessa Ordonez Vital Signs Date Time Vital Sign Value Performing Clinician Facility 12-02-2024 [id number] Body height 180.3 cm April Thompson MD Work Phone: [facility] 12-02-2024 10:23-0400 Body mass index (BMI) [Ratio] 23.85 kg/m2 April Thompson MD Work Phone: [facility] 12-02-2024 10:23-0400 Body temperature 97.2 [degF] April Thompson MD Work Phone: [facility] 12-02-2024 10:23-0400 Body weight 77.56 kg April Thompson MD Work Phone: [facility] 12-02-2024 10:23-0400 Diastolic blood pressure 78 mm[Hg] April Thompson MD Work Phone: [facility] 12-02-2024 10:23-0400 Heart rate 88 /min April Thompson MD Work Phone: [facility] 12-02-2024 10:23-0400 SaO2% (BldA) [Mass fraction] 97 % April Thompson MD Work Phone: [facility] 12-02-2024 10:23-0400 Systolic blood pressure 138 mm[Hg] April Thompson MD Work Phone: [facility] 11-15-2024 08:30-0400 Body height 180.3 cm Davion Stephenson DO Work Phone: [facility] 11-15-2024 08:30-0400 Body mass index (BMI) [Ratio] 24.27 kg/m2 Davion Furlong DO Work Phone: [facility] 11-15-2024 08:30-0400 Body temperature 97.59 [degF] Davion Furlong DO Work Phone: [facility] 11-15-2024 08:30-0400 Body weight 78.93 kg Davion Furlong DO Work Phone: [facility] 11-15-2024 08:30-0400 Diastolic blood pressure 68 mm[Hg] Davion Furlong DO Work Phone: [facility] 11-15-2024 08:30-0400 Heart rate 69 /min Davion Furlong DO Work Phone: [facility] 11-15-2024 08:30-0400 Respiratory rate 18 /min Davion Furlong DO Work Phone: [facility] 11-15-2024 08:30-0400 SaO2% (BldA) [Mass fraction] 97 % Davion Furlong DO Work Phone: [facility] 11-15-2024 08:30-0400 Systolic blood pressure 102 mm[Hg] Davion Furlong DO Work Phone: [facility] 07-08-2024 10:24-0500 Body mass index (BMI) [Ratio] 23.24 kg/m2 Davion Furlong DO Work Phone: [facility] 07-08-2024 10:24-0500 Body temperature 97.39 [degF] Davion Furlong DO Work Phone: [facility] 07-08-2024 10:24-0500 Body weight 75.57 kg Davion Furlong DO Work Phone: [facility] 07-08-2024 10:24-0500 Diastolic blood pressure 60 mm[Hg] Davion Furlong DO Work Phone: [facility] 07-08-2024 10:24-0500 Heart rate 78 /min Davion Furlong DO Work Phone: [facility] 07-08-2024 10:24-0500 SaO2% (BldA) [Mass fraction] 97 % Davion Furlong DO Work Phone: [facility] 07-08-2024 10:24-0500 Systolic blood pressure 100 mm[Hg] Davion Furlong DO Work Phone: [facility] 08-22-2023 09:30-0500 Body height 180.3 cm Vesta Schwartz PEST CONTROL CHEMICAL TECHNICIAN-MANAGER CAREER Work Phone: [facility] 08-22-2023 09:30-0500 Body mass index (BMI) [Ratio] 23.65 kg/m2 Vesta Schwartz APRN-MANAGER CAREER Work Phone: [facility] 08-22-2023 09:30-0500 Body temperature 96.8 [degF] Vesta Schwartz PEST CONTROL CHEMICAL TECHNICIAN-MANAGER CAREER Work Phone: [facility] 08-22-2023 09:30-0500 Body weight 76.93 kg Vesta Schwartz PE[employer] CONTROL CHEMICAL TECHNICIAN-MANAGER CAREER Work Phone: [facility] 08-22-2023 09:30-0500 Diastolic blood pressure 64 mm[Hg] Vesta Schwartz APRN-MANAGER CAREER Work Phone: [facility] 08-22-2023 09:30-0500 Heart rate 74 /min Vesta Schwartz [employer] CONTR[employer] CHEMICAL TECHNICIAN-MANAGER CAREER Work Phone: [facility] 08-22-2023 09:30-0500 SaO2% (BldA) [Mass fraction] 99 % Vesta Schwartz APRN-MANAGER CAREER Work Phone: [facility] 08-22-2023 09:30-0500 Systolic blood pressure 104 mm[Hg] Vesta Schwartz APRN-MANAGER CAREER Work Phone: [facility] 08-01-2023 13:10-0500 Blood Pressure Location Anish NILL [facility] [place] 08-01-2023 13:10-0500 Diastolic blood pressure 90 mm[Hg] Anish NILL [facility] [place] 08-01-2023 13:10-0500 Heart rate 76 /min Anish NILL [facility] [place] 08-01-2023 13:10-0500 Respiratory rate 16 /min Anish NILL [facility] [place] 08-01-2023 13:10-0500 Systolic blood pressure 156 mm[Hg] Anish NILL [facility] 06-13-2023 09:47-0400 Blood Pressure Location Sameer BROWNING [facility] 06-13-2023 09:47-0400 Diastolic blood pressure 80 mm[Hg] Sameer BROWNING [facility] 06-13-2023 09:47-0400 Heart rate 65 /min Sameer BROWNING [facility] 06-13-2023 09:47-0400 Respiratory rate 16 /min Sameer BROWNING [facility] 06-13-2023 09:47-0400 Systolic blood pressure 136 mm[Hg] Sameer BROWNING [facility] 06-14-2022 10:28-0400 Blood Pressure Location Sameer BROWNING [facility] 06-14-2022 10:28-0400 Diastolic blood pressure 84 mm[Hg] Sameer BROWNING [facility] 06-14-2022 10:28-0400 Heart rate 74 /min Sameer BROWNING [facility] 06-14-2022 10:28-0400 Systolic blood pressure 144 mm[Hg] Sameer BROWNING [facility] Encounters Encounter Date Encounter Type Care Provider Facility Start: 12-02-2024 End: 12-03-2024 Pre-admission assessment April Thompson [facility] Start: 12-02-2024 End: 12-02-2024 Office outpatient visit 25 minutes April Thompson MD Work Phone: [facility] Comment on above: Abdominal aortic ane urysm (AAA) without rupture, unspecified part (Primary Dx) Start: 12-02-2024 End: 12-02-2024 ambulatory [facility] Start: 11-29-2024 End: 11-29-2024 ambulatory [facility] Start: 11-29-2024 End: 11-29-2024 Encounter for other preprocedural examination [facility] Start: 11-25-2024 End: 11-25-2024 ambulatory [facility] Start: 11-25-2024 End: 11-25-2024 ambulatory [facility] Start: 11-19-2024 End: 11-19-2024 Telephone encounter Delphine Louis [facility] Comment on above: ultra sound result Aortic aneurysm with out rupture, unspecified portion of aorta (CMS-HCC) (Primary Dx) Start: 11-15-2024 End: 11-15-2024 Office outpatient visit 15 minutes Davion Stephenson DO Work Phone: [facility] Comment on above: Abdominal aortic ane urysm (AAA) without rupture, unspecified part (CMS-HCC) (Primary Dx); Cigarette smoker; Mixed hyperlipidemia Start: 11-15-2024 End: 11-15-2024 ambulatory [facility] Start: 07-09-2024 End: 07-12-2024 [facility] Start: 07-08-2024 End: 07-08-2024 ambulatory [facility] Start: 07-08-2024 Encounter for genera l adult medical examination without abnormal findings [facility] Start: 07-08-2024 End: 07-08-2024 Patient encounter status [facility] DO Work Phone: [facility] Work Phone: Start: 07-08-2024 End: 07-08-2024 Periodic preventive med est patient 40-64yrs Davion G [place] DO [facility] Comment on above: Well adult health ch jaqueline (Primary Dx); Mixed hyperlipidemia; Cigarette nicotine dependence without complication; Elevated PSA Start: 07-08-2024 End: 07-08-2024 ambulatory [facility] Start: 07-08-2024 Encounter for genera l adult medical examination without abnormal findings [facility] Start: 06-09-2024 End: 06-09-2024 [facility] Comment on above: Hyperlipidemia, unsp ecified Start: 04-26-2024 End: 04-29-2024 [facility] Work [facility]: [facility] Start: 08-22-2023 End: 08-22-2023 ambulatory VESTA SCHWARTZ [facility] Start: 08-22-2023 End: 08-22-2023 Office outpatient visit 15 minutes Vesta Schwartz [employer]OL CHEMICAL TECHNICIAN-MANAGER CAREER Work [facility]: [facility] Comment on above: Mixed hyperlipidemia (Primary Dx); Tobacco abuse Start: 08-01-2023 End: 08-02-2023 ambulatory [facility] Start: 08-01-2023 End: 08-01-2023 Patient encounter procedure Anish Christy MORRISON [facility] Start: 07-29-2023 ambulatory Sameer BROWNING Facility : [place] Start: 06-13-2023 End: 06-14-2023 ambulatory Sameer BROWNING [facility]: [facility] Start: 06-13-2023 End: 06-13-2023 Patient encounter procedure Sameer BROWNING [facility] Start: 06-14-2022 End: 06-14-2022 Patient encounter procedure Sameer BROWNING [facility] Start: 06-06-2022 End: 06-07-[address] SAMEER BROWNING Facility:[facility] Start: 02-08-2022 End: 02-09-[address] VESTA SCHWARTZ Facility:[facility] Start: 10-08-2021 End: 10-09-[address] SAMEER BROWNING Facility:[facility] Start: 08-11-2021 Encounter for genera l adult medical examination without abnormal findings TRAE MCCLURE [facility] Start: 08-06-2021 End: 08-07-2021 ambulatory TRAE MCCLURE Facility:H1 Start: 08-06-2021 End: 08-07-2021 Encounter for general adult medical examination without abnormal findings TRAE MCCLURE Facility:H1 Start: 06-18-2021 ambulatory TRAE MCCLURE Facilit y:H1 Procedures Date Procedure Procedure Detail Performing Clinician Start: 11-15-2024 Adult depression screening assessment Davion Stephenson DO Work Phone: Start: 07-08-2024 Follow-up visit Follow-up DAVION STEPHENSON Start: 07-08-2024 Adult depression screening assessment Davion Stephenson DO Work Phone: Start: 08-22-2023 Adult depression screening assessment Vesta Schwartz PEST CONTROL CHEMICAL TECHNICIAN-MANAGER CAREER Work Phone: Start: 06-06-2022 PSA screening TRAE DASILVA Comment on above: Performed By: #### P SAD #### [facility] [address] [place] [address] Dr. Vanessa Ordonez Start: 08-06-2021 PSA screening TRAE MARTINEZ SS Comment on above: Performed By: #### P SASC #### [facility] [address] [place] [address] Dr. Vanessa Ordonez None (qualifier value) Clint MORRISON Plan of Treatment Date Care Activity Detail Author Start: 01-05-2026 Tobacco Counseling Tobacco Counselin g [facility] Start: 11-25-2025 Adult BMI Screening Adult BMI Screen ing [facility] Start: 11-25-2025 Tobacco Screening Tobacco Screening [facility] Start: 11-15-2025 Adult BMI Screening Adult BMI Screen ing [facility] Start: 11-15-2025 Depression Screening Depression Scre ening [facility] Start: 11-15-2025 Tobacco Screening Tobacco Screening [facility] Start: 09-01-2025 DTaP,Tdap and Td Vac cines (1 - Tdap) DTaP,Tdap and Td Vaccines (1 - Tdap) [facility] Comment on above: Postponed from 09/02 (Patient Refused) Start: 07-11-2025 End: 07-11-2025 Patient encounter procedure 07/11/2025 10:30 AM EST Office Visit [facility] [address] [place] [address] Davion Stephenson DO [address] [place] [address] [facility] Start: 07-08-2025 Adult BMI Screening Adult BMI Screen ing [facility] Start: 07-08-2025 Depression Screening Depression Scre ening [facility] Start: 07-08-2025 Tobacco Screening Tobacco Screening [facility] Start: 05-02-2025 Influenza vaccination Influenza Vacc ine [facility] Start: 02-20-2025 Tobacco Counseling Tobacco Counselin g [facility] Start: 11-15-2024 End: 11-15-2025 US Retroperitoneum limited Ultrasound retroperitoneal limited Imaging Routine Abdominal aortic aneurysm (AAA) without rupture, unspecified part ([facility]) Expected: 11/15/2024, Expires: 11/15/2025 [employer] Work Phone: Comment on above: Expected: 11/15/2024 , Expires: 11/15/2025 Start: 08-22-2024 Adult BMI Screening Adult BMI Screen ing [facility] Start: 08-22-2024 [facility] Start: 08-22-2024 Tobacco Screening Tobacco Screening [facility] Start: 07-08-2024 End: 07-08-2024 Patient encounter procedure 07/08/2024 10:30 AM EST Office Visit [facility] [address] [place] [address] Davion Stephenson, DO [address], [facility] [place] [address] [facility] Start: 05-02-2024 Influenza vaccination Influenza Vacc ine [facility] Start: 05-02-2023 Influenza vaccination Influenza Vacc ine [facility] Start: 2010 Administration of varicella zoster vaccine Zoster (Shingles) Vaccine (1 of 2) [facility] Start: 1979 DTaP,Tdap and Td Vac cines (1 - Tdap) DTaP,Tdap and Td Vaccines (1 - Tdap) [facility] End: 08-22-2024 Comprehensive metabolic 2000 panel - Serum or Plasma Comprehensive metabolic panel Lab Routine Mixed hyperlipidemia 1 Occurrences starting 08/22/2023 until 08/22/2024 [facility] Work Phone: Comment on above: 1 Occurrences starti ng 08/22/2023 until 08/22/2024 End: 08-22-2024 Lipid panel Lipid panel Lab Routine Mixed hyperlipidemia 1 Occurrences starting 08/22/2023 until 08/22/2024 [facility] Comment on above: 1 Occurrences starti ng 08/22/2023 until 08/22/2024 Immunizations Immunization Date Immunization Notes Care Provider Fa cilikaye NEGATED: Highlighted row has not occurred!08-01-2023 influenza virus vaccine, unspecified formulation Anish TAMIKO [facility] [place] NEGATED: Highlighted row has not occurred!06-14-2022 SARS-CoV-2 mRNA (tozinameran 5y-11y) vaccine Sameer EUGENIO [facility] Payers Date Payer Category Payer Managed Care Other (unspecified) [id number] 2024 Unknown [id number] 2024 Unknown [id number] 1.315 2003 Private Health Insurance [id number] 1.315 1960 Unknown [id number] 1960 Unknown [id number] [id number] 1960 Unknown [id number] [id number] 1960 Unknown [id number] [id number] 1960 Unknown [id number] [id number] 1960 Unknown [id number] [id number] 1960 Unknown [id number] [id number] 1960 Unknown [id number] [id number] 1960 Unknown [id number] [id number] 1960 Unknown [id number] [id number] 1960 Unknown [id number] [id number] 1960 Unknown [id number] [id number] 1960 Unknown [id number] [id number] 1960 Unknown [id number] 1959 Private Health Insurance [id number] Self-pay [id number] Social History Date Type Detail Facility Start: 06-14-2022 End: 08-01-2023 Tobacco smoking status Light tobacco smoker (finding) [facility] Tobacco smoking status Smoker (finding) [facility] Tobacco smoking status Never [facility] Start: 08-22-2023 End: 07-08-2024 Sex Assigned At Male [facility] Start: 08-22-2023 End: 11-25-2024 Tobacco smoking status NHIS Smokes tobacco daily [facility] History of tobacco use Cigarette Smoker P [facility] Start: 08-22-2023 End: 07-08-2024 Cigarettes smoked current (pack per day) - Reported 0.5 [facility] Start: 08-22-2023 Tobacco use and exposure User of smokeless tobacco [facility] Start: 08-22-2023 End: 11-25-2024 Alcohol intake Ex-drinker (finding) [facility] Start: 1960 Sex Assigned At Not on file P [facility] Start: 07-08-2024 Tobacco use and exposure Smoke less tobacco non-user [facility] Has the [employer], or [employer] threatened to shut off services in your home in past 12Mo No [facility] Are you now , , , , never or living with a partner? [facility] How often to you hav e a drink containing alcohol? Never [facility] Do you feel stress - tense, restless, nervous, or anxious, or unable to sleep at night because your mind is troubled all the time - these days [OSQ] Not at all [facility] Start: 07-10-2022 Sex Male (finding) [facility] Start: 11-25-2024 Tobacco use and exposure Forme r smokeless tobacco user [facility] Sexual Orientation [facility] Functional Status Date Assessment Result Facility 08-01-2023 Functional Status N/A [facility] 06-13-2023 Functional Status N/A [facility] 06-14-2022 Functional Status N/A [facility] Clinical Notes 06-14-2022 to 12-02-2024 Assessment & Plan Note - April Thompson MD - 12/02/2024 11:07 AM EDTAssessment & Plan Note - April Thompson MD - 12/02/2024 11:07 AM EDTMcristo Thompson MD - 12/02/2024 10:40 AM EDT Note Date & Type Note Facility 12-02-2024 Evaluation + Plan note Associated Problem(s): Abdominal aortic aneurysm (AAA) Discussed cardiac risk stratification. Discussed open and endovascular options. Discussed risk benefits and alternatives of each. He would like to make decisions about endovascular versus open after his stress test and echo. [facility] 12-02-2024 Miscellaneous Notes Associated Problem(s): Abdominal aortic aneurysm (AAA) Discussed cardiac risk stratification. Discussed open and endovascular options. Discussed risk benefits and alternatives of each. He would like to make decisions about endovascular versus open after his stress test and echo. documented in this encounter [facility] 12-02-2024 History of Present illness Narrative Images from the original note were not included. To: Davion Stephenson, HPI: Irma Ramírez is a 64 y.o. male with 5.3 cm infrarenal abdominal arctic aneurysm. Discussed the diagnosis different treatment options. Discussed pros and cons of each option. We also discussed cardiac risk stratification.. Review of Systems: Review of Systems Constitutional: Negative. HENT: Negative. Respiratory: Negative. Cardiovascular: Negative. Gastrointestinal: Negative. Endocrine: Negative. Genitourinary: Negative. Musculoskeletal: Negative. Skin: Negative. Neurological: Negative. Hematological: Negative. Medications: Current Outpatient Medications on File Prior to Visit Medication Sig Dispense Refill aspirin 81 mg capsule Take 81 mg by mouth in the morning. rosuvastatin (CRESTOR) 10 mg tablet Take 1 tablet (10 mg total) by mouth in the morning. 90 tablet 3 No current facility-administered medications on file prior to visit. Past Medical History: Past Medical History: Diagnosis Date Hyperlipidemia Past Surgical History: No past surgical history on file. Social and Family History: Social History Socioeconomic History Marital status: Spouse name: Not on file Number of children: Not on file Years of education: Not on file Highest education level: Not on file Occupational History Not on file Tobacco Use Smoking status: Every Day Current packs/day: 0.50 Average packs/day: 0.5 packs/day for 20.0 years (10.0 ttl pk-yrs) Types: Cigarettes Smokeless tobacco: Former Vaping Use Vaping status: Never Used Substance and Sexual Activity Alcohol use: Not Currently Drug use: Never Sexual activity: Not Currently Other Topics Concern Not on file Social History Narrative Not on file Social Drivers of Health Financial Resource Strain: Low Risk (07/08/2024) Overall Financial Resource Strain (CARDIA) Difficulty of Paying Living Expenses: Not hard at all Food Insecurity: No Food Insecurity (12/02/2024) Hunger Screening Food Insecurity - Worry: Never True Food Insecurity - Inability: Never True Transportation Needs: No Transportation Needs (07/08/2024) PRAPARE - Transportation Lack of Transportation (Medical): No Lack of Transportation (Non-Medical): No Physical Activity: Insufficiently Active (07/08/2024) Exercise Vital Sign Days of Exercise per Week: 2 days Minutes of Exercise per Session: 10 min Stress: No Stress Concern Present (07/08/2024) [employer] [place] [employer] - Occupational Stress Questionnaire Feeling of Stress : Not at all Social Connections: Socially Isolated (07/08/2024) Social Connection and Isolation Panel [NHANES] Frequency of Communication with Friends and Family: Once a week Frequency of Social Gatherings with Friends and Family: Twice a week Attends [employer] Services: Never Active Member of Clubs or Organizations: No Attends Club or Organization Meetings: Never Marital Status: Interpersonal Safety: Not At Risk (07/08/2024) Humiliation, Afraid, Rape, and Kick questionnaire Fear of Current or Ex-Partner: No Emotionally Abused: No Physically Abused: No Sexually Abused: No Housing Instability: Low Risk (07/08/2024) Housing Instability Housing Instability: No Family History Problem Relation Age of Onset Breast cancer Mother Lung cancer Father Recent Labs: Recent and relative labs were reviewed and interpreted and contributed to the assessment and plan below. Vitals: BP 138/78 (BP Site: Left Arm, BP Postition: Sitting, BP CUFF SIZE: M (9-13 inches)) Pulse 88 Temp 36.2 C (97.2 F) (Temporal) Ht 180.3 cm (5' 11 ) Wt 77.6 kg (171 lb) SpO2 97% BMI 23.85 kg/m Body mass index is 23.85 kg/m . Physical Exam: Physical Exam Constitutional: Appearance: Normal appearance. HENT: Head: Normocephalic and atraumatic. Mouth/Throat: Mouth: Mucous membranes are moist. Eyes: Extraocular Movements: Extraocular movements intact. Pupils: Pupils are equal, round, and reactive to light. Cardiovascular: Rate and Rhythm: Normal rate and regular rhythm. Pulmonary: Effort: Pulmonary effort is normal. Breath sounds: Normal breath sounds. Abdominal: General: Abdomen is flat. Bowel sounds are normal. Palpations: Abdomen is soft. Musculoskeletal: General: Normal range of motion. Cervical back: Normal range of motion. Skin: General: Skin is warm and dry. Neurological: General: No focal deficit present. Mental Status: He is alert and oriented to person, place, and time. Mental status is at baseline. Psychiatric: Mood and Affect: Mood normal. Behavior: Behavior normal. Thought Content: Thought content normal. Judgment: Judgment normal. Recent testing: CTA abdomen and pelvis Assessment and Plan: Problem List Abdominal aortic aneurysm (AAA) - Primary Current Assessment & Plan Discussed cardiac risk stratification. Discussed open and endovascular options. Discussed risk benefits and alternatives of each. He would like to make decisions about endovascular versus open after his stress test and echo. Irma was seen today for 1 week f/u cta. Diagnoses and all orders for this visit: Abdominal aortic aneurysm (AAA) without rupture, unspecified part April Thompson MD, NOMAN, RPVI, FSVS, FACS [facility] This note was created with the assistance of a speech recognition program. While intending to generate a timely document that accurately reflects the content of the visit, no guarantee can be provided that every grammatical or spelling mistake has been or will be identified or corrected. Thank you for your understanding. documented in this encounter [facility] 11-29-2024 Note [place] [facility] Note Reason for cardiology consult: Preop clearance for abdominal aortic aneurysm repair Chief Complaint: No cardiac complaint HPI: Irma Ramírez is a 64 y.o. male with history of abdominal aortic aneurysm 6.6 cm, hyperlipidemia and prior history of smoking. No history of hypertension or diabetes mellitus or prior cardiac history Patient is here today for cardiac clearance before EVAR and possible open abdominal aortic aneurysm repair Patient does not exercise on regular basis however he is physically very active and he denies any chest pain or shortness of breath at rest or with exertion. Denies orthopnea or paroxysmal nocturnal dyspnea or dizziness or palpitations. He denies legs edema or discomfort on exertion. He used to smoke more than 2 packs/day for more than 20 years and he quit totally 6 months ago. He denies alcohol or illicit drugs He denies family history of coronary artery disease Cardiology ROS: GENERAL: Denies fever, chills, night sweats, weight loss. HEENT: Denies changes in vision, photophobia, changes in hearing, epistaxis, oral bleeding. CARDIOVASCULAR: Denies chest pain, exertional dyspnea, orthopnea/PND, lower extremity edema, palpitations, lightheadedness/dizziness. RESPIRATORY: Denies SOB, coughing, wheezing GI: Denies abdominal pain, nausea/vomiting, heartburn, melena/hematochezia. RENAL: Denies dysuria, hematuria, flank pain. MSK: Denies muscle weakness/pain, arthralgias/joint pain. NEUROLOGIC: Denies LOC, weakness, numbness, headaches. SKIN: Denies abnormal rashes or bleeding. PSYCH: Denies significant anxiety, depression, sleep disturbances. Past Medical History He has a past medical history of Abdominal aortic aneurysm (AAA) and Hyperlipidemia. Surgical History He has no past surgical history on file. Social History He reports that he quit smoking about 5 months ago. His smoking use included cigarettes. He has a 40 pack-year smoking history. He has never used smokeless tobacco. He reports that he does not currently use alcohol. He reports that he does not use drugs. Family History Family History Problem Relation Name Age of Onset Breast cancer Mother Lung cancer Father Allergies Patient has no known allergies. Medications Current Outpatient Medications: aspirin 81 mg capsule, Take 81 mg by mouth in the morning., Disp: , Rfl: rosuvastatin (Crestor) 10 mg tablet, Take 10 mg by mouth in the morning., Disp: , Rfl: Last Recorded Vitals Visit Vitals BP 126/79 (BP Location: Right arm, Patient Position: Sitting) Pulse 76 Ht 1.803 m (5' 11 ) Wt 77.6 kg (171 lb) SpO2 98% BMI 23.85 kg/m??? Smoking Status Former BSA 1.97 m??? Physical Examination: GENERAL: alert and oriented x3, well developed, in no acute distress. HEAD: atraumatic, normocephalic. EYES: DANN, EOMI. NECK: trachea midline, no JVD present, no carotid bruits present. CARDIAC: S1, S2 present. RRR. No murmur, rubs, or gallops. RESPIRATORY: CTAB, no increased effort of breathing, no rales, rhonchi, or wheezing. ABDOMEN: soft, nontender, nondistended. EXTREMITIES: no lower extremity edema. No rash/skin discoloration present. NEURO: strength/sensation equal and symmetric in bilateral upper and lower extremities. PSYCH: appropriate mood, affect, and judgement. Labs: 07/08/2024 Cholesterol 148, triglyceride 113, HDL 35, LDL 90 Sodium 139, potassium 4.4, BUN 16, creatinine 0.7, glucose 96, calcium 9.1, GFR above 90 Total protein 7.6, albumin 4.3, alk phos 59, AST 22, ALT 18, total bilirubin 0.5 Last Images: EKG today 11/29/2024 showed normal sinus rhythm, normal EKG CT angiogram of the abdominal aorta with runoff 11/25/2024 IMPRESSION: 1. Fusiform infrarenal abdominal aortic aneurysm measuring 5.3 cm with eccentric mural thrombus. 2. Atherosclerotic calcification at the aortic bifurcation and proximal common iliac arteries causing moderate stenosis. 3. Mild scattered atherosclerotic calcification at the bilateral superficial femoral arteries and proximal tibial arteries without significant stenosis. Otherwise normal three-vessel runoff to the feet bilaterally. 4. Detailed vascular findings and additional chronic findings as above Abdominal aorta ultrasound 11/19/2024 Assessment and Plan: Pre-op evaluation for abdominal aortic aneurysm repair This represents a high risk surgery there for giving patient risk factors for coronary artery disease including peripheral vascular disease, hyperlipidemia and long history of smoking I think we should rule out underlying ischemia and left ventricular dysfunction by obtaining Lexiscan nuclear stress test and echocardiographic study Abdominal aortic aneurysm measuring 5.[address] angiogram with eccentric mural thrombus. It measured 6.6 cm on abdominal aorta ultrasound Patient is on aspirin and rosuvastatin Other PAD including moderate stenosis o (more content not included)... [facility] 11-19-2024 History of Present illness Narrative Dr. Stephenson called me while still in office and asked that I call pt and notify him of abnormal result that was called to Dr. Stephenson from [facility] regarding pt abdominal US with 6.7cm aortic aneurysm. Pt called and notified and asked that vascular surgeon referral be placed for [place]. Pt given number to call and schedule appt Friday for soonest available provider for intervention for this. No result in system yet from [facility]. Will ask that staff scan those results in for vascular to review. ALLEN Paige 11/19/24 1224 documented in this encounter [facility] 11-19-2024 Miscellaneous Notes Contract: Dejuan Palma calling from [facility] radiology department regarding ultrasound result for the aortic aneurysm results. Connected Dr. Stephenson with [facility]. documented in this encounter [facility] 11-19-2024 Telephone encounter Note Contract: Dejuan Palma calling from [facility] radiology department regarding ultrasound result for the aortic aneurysm results. Connected Dr. Stephenson with [facility]. [facility] 11-15-2024 History of Present illness Narrative Subjective Patient ID: Irma Ramírez is a 64 y.o. male. Harvey presents today to discuss his aneurysm. He was told several years ago that he had an aneurysm. He was told that it was slow-growing. He has not had it monitored into 2 or 3 years. He has not had any abdominal or back pain. He continues to smoke. He knows he needs to stop. We did discuss several smoking cessation strategies. The following portions of the patient's history were reviewed and updated as appropriate: allergies, current medications, past family history, past medical history, past social history, past surgical history, problem list, and medication reconciliation was completed including current medication and post discharge medication. Review of Systems Constitutional: Negative. Cardiovascular: Negative. Gastrointestinal: Negative. Psychiatric/Behavioral: Negative. Objective Physical Exam Vitals reviewed. Constitutional: General: He is not in acute distress. Appearance: Normal appearance. He is normal weight. Cardiovascular: Rate and Rhythm: Normal rate and regular rhythm. Pulses: Normal pulses. Heart sounds: Normal heart sounds. No murmur heard. Pulmonary: Effort: Pulmonary effort is normal. No respiratory distress. Breath sounds: Normal breath sounds. No wheezing, rhonchi or rales. Abdominal: General: Bowel sounds are normal. There is no distension. Palpations: Abdomen is soft. There is no mass. Tenderness: There is no abdominal tenderness. There is no guarding or rebound. Hernia: No hernia is present. Neurological: General: No focal deficit present. Mental Status: He is alert and oriented to person, place, and time. Psychiatric: Attention and Perception: Attention normal. Mood and Affect: Mood and affect normal. Speech: Speech normal. Behavior: Behavior normal. Behavior is cooperative. Thought Content: Thought content normal. Cognition and Memory: Cognition normal. Judgment: Judgment normal. Assessment/Plan Irma was seen today for discussion about anurysm in bladder. Diagnoses and all orders for this visit: Abdominal aortic aneurysm (AAA) without rupture, unspecified part ([facility]) - Ultrasound retroperitoneal limited; Future Check an ultrasound of his AAA to monitor progression. May need further evaluation and management. Risk factors discussed to slow the progression such as smoking cessation in controlling cholesterol. His blood pressure is under good control. Cigarette smoker Discussed several smoking cessation techniques. He tried Zyban and Chantix in the past and did not seem to help him. He does not want to try them again. We discussed nicotine replacement therapies. Mixed hyperlipidemia Continue rosuvastatin documented in this encounter [facility] 07-09-2024 Miscellaneous Notes ----- Message from Dr. Davion Stephenson DO sent at 07/09/2024 12:35 PM EST ----- His lipids were all at goal. His HDL was a little low at 35. Exercise can help raise that. His CMP was normal. Continue rosuvastatin. Recheck in 1 year Patient notified documented in this encounter [employer] 07-09-2024 Telephone encounter Note ----- Message from Dr. Davion Stephenson DO sent at 07/09/2024 12:35 PM EST ----- His lipids were all at goal. His HDL was a little low at 35. Exercise can help raise that. His CMP was normal. Continue rosuvastatin. [facility] Note Patient notified [employer] 07-08-2024 History of Present illness Narrative Subjective Patient ID: Irma Ramírez is a 63 y.o. male. Harvey presents today for a CV recheck. He is not sure he has not wellness benefit so we will make it a wellness today. He is taking his medications. He does not have any side effects. He has ringing in ears. He doesn't want to take OTC supplement TID. He wonders if there is anything else he can try. He does not have hearing loss or vertigo. He does not see the eye doctor. The following portions of the patient's history were reviewed and updated as appropriate: allergies, current medications, past family history, past medical history, past social history, past surgical history, problem list, and medication reconciliation was completed including current medication and post discharge medication. Review of Systems Constitutional: Negative. HENT: Positive for tinnitus. Eyes: Negative. Respiratory: Negative. Cardiovascular: Negative. Gastrointestinal: Negative. Endocrine: Negative. Genitourinary: Negative. Musculoskeletal: Negative. Skin: Negative. Allergic/Immunologic: Negative. Neurological: Negative. Hematological: Negative. Psychiatric/Behavioral: Negative. Objective Physical Exam Vitals reviewed. Constitutional: General: He is not in acute distress. Appearance: Normal appearance. He is normal weight. He is not ill-appearing. HENT: Head: Normocephalic. Right Ear: Tympanic membrane, ear canal and external ear normal. Left Ear: Tympanic membrane, ear canal and external ear normal. Mouth/Throat: Lips: [place]. Mouth: Mucous membranes are moist. Eyes: General: No scleral icterus. Extraocular Movements: Extraocular movements intact. Conjunctiva/sclera: Conjunctivae normal. Neck: Vascular: No carotid bruit. Cardiovascular: Rate and Rhythm: Normal rate and regular rhythm. Pulses: Normal pulses. Heart sounds: Normal heart sounds. No murmur heard. Pulmonary: Effort: Pulmonary effort is normal. No respiratory distress. Breath sounds: Normal breath sounds. No wheezing, rhonchi or rales. Abdominal: General: Bowel sounds are normal. There is no distension. Palpations: Abdomen is soft. There is no mass. Tenderness: There is no abdominal tenderness. There is no guarding or rebound. Hernia: No hernia is present. Genitourinary: Comments: declined Musculoskeletal: Cervical back: Neck supple. Lymphadenopathy: Cervical: No cervical adenopathy. Skin: General: Skin is warm. Neurological: General: No focal deficit present. Mental Status: He is alert and oriented to person, place, and time. Psychiatric: Attention and Perception: Attention normal. Mood and Affect: Mood and affect normal. Speech: Speech normal. Behavior: Behavior normal. Thought Content: Thought content normal. Cognition and Memory: Cognition and memory normal. Judgment: Judgment normal. Assessment/Plan Irma was seen today for follow-up. Diagnoses and all orders for this visit: Well adult health check - Comprehensive metabolic panel; Future - Lipid panel; Future Health maintenance discussed. Check CMP and lipids. Mixed hyperlipidemia Check lipid panel Cigarette nicotine dependence without complication Discussed smoking cessation. He has tried and failed numerous things including what sounds like Chantix. Tips given to help quit smoking. Risks of continued smoking discussed. Reviewed his smoking history. He says he started smoking when he was about 40 years old and has smoked a half a pack a day since. Denies smoking in his 20s and 30s. He does not qualify for lung cancer screening. At least 3 minute spent discussing. Elevated PSA He declines rechecking PSA. Says he has been through all the testing before does not want it again. Other orders - aspirin 81 mg capsule; Take 81 mg by mouth in the morning. documented in this encounter [facility] 07-08-2024 Miscellaneous Notes Disclaimer: This note is intended for educational purposes only. It does not constitute a patient visit and is not to be used or relied on for treatment, billing, or any other purposes. It has been created solely for to enable the student to practice documentation to achieve the expected level of competency in charting and receive feedback regarding same. This note is not a part of the legal medical record. documented in this encounter [facility] 07-08-2024 Progress note Formatting of t his note might be different from the original. Disclaimer: This note is intended for educational purposes only. It does not constitute a patient visit and is not to be used or relied on for treatment, billing, or any other purposes. It has been created solely for to enable the student to practice documentation to achieve the expected level of competency in charting and receive feedback regarding same. This note is not a part of the legal medical record. [facility] 04-26-2024 Miscellaneous Notes ----- Message from Dr. Davion Stephenson DO sent at 04/26/2024 12:58 PM EDT ----- Regarding: Wellness Please set Patient does not have insurance right now, he took early snf from [employer] and is looking for new insurance documented in this encounter [facility] 04-26-2024 Telephone encounter Note ----- Message from Dr. Davion Stephenson DO sent at 04/26/2024 12:58 PM EDT ----- Regarding: Wellness Please set [facility] 04-26-2024 Telephone encounter Note Patient does not have insurance right now, he took early snf from [employer] and is looking for new insurance [facility] [facility] 08-22-2023 History of Present illness Narrative Subjective Patient ID: Irma Ramírez is a 62 y.o. male. His heartburn did resolve so no longer needs the pepcid He has some mild head cold symptoms right now but otherwise doing ok No problems with the rosuvastatin - he is fasting today He hasn't been able to quit smoking, he did try chantix at one time and he was not successful with this The following portions of the patient's history were reviewed and updated as appropriate: allergies, current medications, past family history, past medical history, past social history, past surgical history, problem list, and medication reconciliation was completed including current medication and post discharge medication. Review of Systems Constitutional: Negative. HENT: Positive for congestion. Eyes: Negative. Respiratory: Negative. Cardiovascular: Negative. Gastrointestinal: Negative. Endocrine: Negative. Genitourinary: Negative. Musculoskeletal: Negative. Skin: Negative. Allergic/Immunologic: Negative. Neurological: Negative. Hematological: Negative. Psychiatric/Behavioral: Negative. Objective Physical Exam Vitals and nursing note reviewed. Constitutional: Appearance: Normal appearance. HENT: Head: Normocephalic. Eyes: Conjunctiva/sclera: Conjunctivae normal. Neck: Vascular: No carotid bruit. Cardiovascular: Rate and Rhythm: Normal rate and regular rhythm. Pulses: Normal pulses. Heart sounds: Normal heart sounds. No murmur heard. Pulmonary: Effort: Pulmonary effort is normal. Breath sounds: Normal breath sounds. Musculoskeletal: Right lower leg: No edema. Left lower leg: No edema. Lymphadenopathy: Cervical: No cervical adenopathy. Skin: General: Skin is warm and dry. Capillary Refill: Capillary refill takes less than 2 seconds. Neurological: Mental Status: He is alert and oriented to person, place, and time. Psychiatric: Mood and Affect: Mood normal. Thought Content: Thought content normal. Judgment: Judgment normal. Assessment/Plan Irma was seen today for hyperlipidemia. Diagnoses and all orders for this visit: Mixed hyperlipidemia - Comprehensive metabolic panel; Future - Lipid panel; Future Tobacco abuse He is taking rosuvastatin without difficulty, will recheck his lab work today and results are pending, his blood pressure is excellent We discussed smoking cessation at length and he has failed chantix in the past, he would like to try hyponosis and resources for this were reviewed CHIP Grajeda 08/22/23 1059 documented in this encounter [facility] 08-01-2023 Note Chief Complaint consultation for colonoscopy HPI Staff 62 year old male presents on consultation from Dr. Browning for screening colonoscopy. Denies abdominal or rectal pain. No rectal bleeding or change in bowel habits. Denies nausea or vomiting. No unexplained weight loss. Never had colonoscopy in the past. No known family history of colon cancer. History of Present Illness 62 yo male with h/o hyperlipidemia, bph, AAA, referred for colorectal screening; denies change in bms or blood in stools; no abdominal complaints; on baby asa daily, no NSAID use, no SBE prophylaxis; no abdominal operations or previous colonoscopy; no fmhx of GI malignancy or IBD; smokes daily. Review of Systems PHQ Score Initial Depression Screen Score: 0 SCORE ROS - Provider Constitutional: no fever, no sweats, no weight loss. Eyes: no glasses, no blurred vision, no visual loss. ENMT: no dentures, no hoarseness, no swallowing difficulties, no hearing loss, no ear infection(s), no nose bleeds. Cardiovascular: normal blood pressure, no chest pain, regular heartbeat, no heart murmur. Respiratory: no shortness of breath, no cough, no asthma, no wheezing. Gastrointestinal: no nausea, no vomiting, no diarrhea, no constipation, no blood in stool, no change in bowel habits, no abdominal pain, no hepatitis. Genitourinary: no kidney stones, no urine infection, no dysuria. Musculoskeletal: no pain, no weakness. Skin: no changing moles, no rash, no skin lumps. Neurologic: no seizures, no epilepsy, no headache. Psychiatric: no emotional or psychiatric problem. Heme/Lymph: no bleeding problems, no anemia, no blood clots, no transfusions. Allergy/Immunologic: no swollen lymph nodes/glands, no IV drug abuse. Other: Additional ROS info: Except as noted in the above Review of Systems and in the History of Present Illness, all other systems have been reviewed and are negative or noncontributory. Physical Exam Vitals & Measurements HR: 76(Peripheral) RR: 16 BP: 156/90 HT: 69 in HT: 175 cm WT: 79.2 kg WT: 174.24 lb BMI: 25.86 HEENT: normal conjunctiva, sclera clear, no scleral icterus, EOM intact, PERRLA, oral mucosa moist without lesions. Neck: trachea midline, no mass, symmetric, no thyromegaly or nodules, no adenopathy Respiratory: lungs CTA, respirations non labored. Cardiovascular: regular rate and rhythm, no murmur, no pedal edema or varicosities. Gastrointestinal: soft, non distended, no tenderness, no masses, no palpable hernias, diastasis recti no, no hepatosplenomegaly; normal bs Lymphatic: no cervical adenopathy, no supraclavicular adenopathy. Musculoskeletal: normal gait, digits and nails without infection, nodes, cyanosis, clubbing. Skin: no rashes, no lesions, no ulcers, no subcutaneous nodules, induration. Psychiatric/Neuro: oriented to time, place, person, judgement normal, affect appropriate for age, insight intact, no focal deficits. , review of old records completed , Discussed surgical options, risks, and possible complications with patient. Assessment/Plan 1. Screening for malignant neoplasm of colon (Z12.11: Encounter for screening for malignant neoplasm of colon) plan colonoscopy under anesthesia, informed consent obtained. Follow-up No qualifying data available Problem List/Past Medical History Ongoing AAA (abdominal aortic aneurysm) BMI 25.0-25.9,adult BPH with obstruction/lower urinary tract symptoms Depression Elevated PSA Hyperlipidemia Screening for malignant neoplasm of colon Smoker Historical No qualifying data Procedure/Surgical History None. Medications aspirin 81 mg oral capsule, Oral, q24hr rosuvastatin 10 mg Tab Allergies No Known Allergies Social History Alcohol - Denies Alcohol Use, 08/01/2023 Substance Abuse - Denies Substance Abuse, 08/01/2023 Tobacco 5-9 cigarettes (between 1/4 to 1/2 pack)/day in last 30 days Tobacco Use:. Never Smokeless Tobacco Use:. Cigarettes, Started age 15.0 Years. Yes, 08/01/2023 Family History Arthritis: Father. Breast cancer: Mother. Cancer: Father. High cholesterol: Mother. Hypertension: Mother. Stroke: Father. Immunizations Vaccine Date Status Comments influenza virus vaccine, inactivated - Not Given Patient Refuses SARS-CoV-2 mRNA (tozinameran 5y-11y) vac - Not Given Patient Refuses [facility] Comment on above: Result Comment: Elec tronically Signed By: TAMIKO DEVINE, Anish Lorenzo\Date and Time Signed: 08/01/23 13:27 EST 06-13-2023 Note - From: Joselyn Weber To: [facility] - Administrative; Cc: [facility] - Recalls Browning; Sent: 06/13/2023 10:58:09 EDT Show up: 11/30/2024 10:57:00 EDT Subject: 2 yr fu with PSA Due Date/Time: 12/20/2024 10:57:00 EDT Reminder/Recall Patient needs fu in June 2025 with PSA (2 yr fu) [facility] 06-13-2023 Hospital Discharge instructions Patient Education 06/13/2023 10:43:45 Benign Prostatic Hyperplasia Benign Prostatic Hyperplasia Benign prostatic hyperplasia (BPH) is an enlarged prostate gland that is caused by the normal aging process. The prostate may get bigger as a man gets older. The condition is not caused by cancer. The prostate is a walnut-sized gland that is involved in the production of semen. It is located in front of the rectum and below the bladder. The bladder stores urine. The urethra carries stored urine out of the body. An enlarged prostate can press on the urethra. This can make it harder to pass urine. The buildup of urine in the bladder can cause infection. Back pressure and infection may progress to bladder damage and kidney (renal) failure. What are the causes? This condition is part of the normal aging process. However, not all men develop problems from this condition. If the prostate enlarges away from the urethra, urine flow will not be blocked. If it enlarges toward the urethra and compresses it, there will be problems passing urine. What increases the risk? This condition is more likely to develop in men older than 50 years. What are the signs or symptoms? Symptoms of this condition include: Getting up often during the night to urinate. Needing to urinate frequently during the day. Difficulty starting urine flow. Decrease in size and strength of your urine stream. Leaking (dribbling) after urinating. Inability to pass urine. This needs immediate treatment. Inability to completely empty your bladder. Pain when you pass urine. This is more common if there is also an infection. Urinary tract infection (UTI). How is this diagnosed? This condition is diagnosed based on your medical history, a physical exam, and your symptoms. Tests will also be done, such as: A post-void bladder scan. This measures any amount of urine that may remain in your bladder after you finish urinating. A digital rectal exam. In a rectal exam, your health care provider checks your prostate by putting a lubricated, gloved finger into your rectum to feel the back of your prostate gland. This exam detects the size of your gland and any abnormal lumps or growths. An exam of your urine (urinalysis). A prostate specific antigen (PSA) screening. This is a blood test used to screen for prostate cancer. An ultrasound. This test uses sound waves to electronically produce a picture of your prostate gland. Your health care provider may refer you to a specialist in kidney and prostate diseases (urologist). How is this treated? Once symptoms begin, your health care provider will monitor your condition (active surveillance or watchful waiting). Treatment for this condition will depend on the severity of your condition. Treatment may include: Observation and yearly exams. This may be the only treatment needed if your condition and symptoms are mild. Medicines to relieve your symptoms, including: ?Medicines to shrink the prostate. ?Medicines to relax the muscle of the prostate. Surgery in severe cases. Surgery may include: ?Prostatectomy. In this procedure, the prostate tissue is removed completely through an open incision or with a laparoscope or robotics. ?Transurethral resection of the prostate (TURP). In this procedure, a tool is inserted through the opening at the tip of the penis (urethra). It is used to cut away tissue of the inner core of the prostate. The pieces are removed through the same opening of the penis. This removes the blockage. ?Transurethral incision (TUIP). In this procedure, small cuts are made in the prostate. This lessens the prostate's pressure on the urethra. ?Transurethral microwave thermotherapy (TUMT). This procedure uses microwaves to create heat. The heat destroys and removes a small amount of prostate tissue. ?Transurethral needle ablation (TUNA). This procedure uses radio frequencies to destroy and remove a small amount of prostate tissue. ?Interstitial laser coagulation (ILC). This procedure uses a laser to destroy and remove a small amount of prostate tissue. ?Transurethral electrovaporization (TUVP). This procedure uses electrodes to destroy and remove a small amount of prostate tissue. ?Prostatic urethral lift. This procedure inserts an implant to push the lobes of the prostate away from the urethra. Follow these instructions at home: Take [id number] and prescription medicines only as told by your health care provider. Monitor your symptoms for any changes. Contact your health care provider with any changes. Avoid drinking large amounts of liquid before going to bed or out in public. Avoid or reduce how much caffeine or alcohol you drink. Give yourself time when you urinate. Keep all follow-up visits. This is important. Contact a health care provider if: You have unexplained back pain. Your symptoms do not get better with treatment. You develop side effects from the medicine you are taking. Your urine becomes very dark or has a bad smell. Your lower abdomen becomes distended and you have trouble passing urine. Get help right away if: You have a fever or chills. You suddenly cannot urinate. You feel light-headed or very dizzy, or you faint. There are large amounts of blood or clots in your urine. Your urinary problems become hard to manage. You develop moderate to severe low back or flank pain. The flank is the side of your body between the ribs and the hip. These symptoms may be an emergency. Get help right away. Call 911. Do not wait to see if the symptoms will go away. Do not drive yourself to the hospital. Summary Benign prostatic hyperplasia (BPH) is an enlarged prostate that is caused by the normal aging process. It is not caused by cancer. An enlarged prostate can press on the urethra. This can make it hard to pass urine. This condition is more likely to develop in men older than 50 years. Get help right away if you suddenly cannot urinate. This information is not intended to replace advice given to you by your health care provider. Make sure you discuss any questions you have with your health care provider. Document Revised: 03/06/2022 Document Reviewed: 03/06/2022 [employer] Patient Education 2022 [employer]. Follow Up Care 06/14/2022 11:33:47 With:EUGENIO DEVINE, Sameer Harrison, URL Address: [facility] [address] [place] [address]- [phone] When: Unknown Comments:2 yrs w/ PSA [facility] Hospital Discharge instructions Patient Education 06/14/2022 11:25:40 Benign Prostatic Hyperplasia Benign Prostatic Hyperplasia Benign prostatic hyperplasia (BPH) is an enlarged prostate gland that is caused by the normal aging process and not by cancer. The prostate is a walnut-sized gland that is involved in the production of semen. It is located in front of the rectum and below the bladder. The bladder stores urine and the urethra is the tube that carries the urine out of the body. The prostate may get bigger as a man gets older. An enlarged prostate can press on the urethra. This can make it harder to pass urine. The build-up of urine in the bladder can cause infection. Back pressure and infection may progress to bladder damage and kidney (renal) failure. What are the causes? This condition is part of a normal aging process. However, not all men develop problems from this condition. If the prostate enlarges away from the urethra, urine flow will not be blocked. If it enlarges toward the urethra and compresses it, there will be problems passing urine. What increases the risk? This condition is more likely to develop in men over the age of 50 years. What are the signs or symptoms? Symptoms of this condition include: Getting up often during the night to urinate. Needing to urinate frequently during the day. Difficulty starting urine flow. Decrease in size and strength of your urine stream. Leaking (dribbling) after urinating. Inability to pass urine. This needs immediate treatment. Inability to completely empty your bladder. Pain when you pass urine. This is more common if there is also an infection. Urinary tract infection (UTI). How is this diagnosed? This condition is diagnosed based on your medical history, a physical exam, and your symptoms. Tests will also be done, such as: A post-void bladder scan. This measures any amount of urine that may remain in your bladder after you finish urinating. A digital rectal exam. In a rectal exam, your health care provider checks your prostate by putting a lubricated, gloved finger into your rectum to feel the back of your prostate gland. This exam detects the size of your gland and any abnormal lumps or growths. An exam of your urine (urinalysis). A prostate specific antigen (PSA) screening. This is a blood test used to screen for prostate cancer. An ultrasound. This test uses sound waves to electronically produce a picture of your prostate gland. Your health care provider may refer you to a specialist in kidney and prostate diseases (urologist). How is this treated? Once symptoms begin, your health care provider will monitor your condition (active surveillance or watchful waiting). Treatment for this condition will depend on the severity of your condition. Treatment may include: Observation and yearly exams. This may be the only treatment needed if your condition and symptoms are mild. Medicines to relieve your symptoms, including: ?Medicines to shrink the prostate. ?Medicines to relax the muscle of the prostate. Surgery in severe cases. Surgery may include: ?Prostatectomy. In this procedure, the prostate tissue is removed completely through an open incision or with a laparoscope or robotics. ?Transurethral resection of the prostate (TURP). In this procedure, a tool is inserted through the opening at the tip of the penis (urethra). It is used to cut away tissue of the inner core of the prostate. The pieces are removed through the same opening of the penis. This removes the blockage. ?Transurethral incision (TUIP). In this procedure, small cuts are made in the prostate. This lessens the prostate's pressure on the urethra. ?Transurethral microwave thermotherapy (TUMT). This procedure uses microwaves to create heat. The heat destroys and removes a small amount of prostate tissue. ?Transurethral needle ablation (TUNA). This procedure uses radio frequencies to destroy and remove a small amount of prostate tissue. ?Interstitial laser coagulation (ILC). This procedure uses a laser to destroy and remove a small amount of prostate tissue. ?Transurethral electrovaporization (TUVP). This procedure uses electrodes to destroy and remove a small amount of prostate tissue. ?Prostatic urethral lift. This procedure inserts an implant to push the lobes of the prostate away from the urethra. Follow these instructions at home: Take [id number] and prescription medicines only as told by your health care provider. Monitor your symptoms for any changes. Contact your health care provider with any changes. Avoid drinking large amounts of liquid before going to bed or out in public. Avoid or reduce how much caffeine or alcohol you drink. Give yourself time when you urinate. Keep all follow-up visits as told by your health care provider. This is important. Contact a health care provider if: You have unexplained back pain. Your symptoms do not get better with treatment. You develop side effects from the medicine you are taking. Your urine becomes very dark or has a bad smell. Your lower abdomen becomes distended and you have trouble passing your urine. Get help right away if: You have a fever or chills. You suddenly cannot urinate. You feel lightheaded, or very dizzy, or you faint. There are large amounts of blood or clots in the urine. Your urinary problems become hard to manage. You develop moderate to severe low back or flank pain. The flank is the side of your body between the ribs and the hip. These symptoms may represent a serious problem that is an emergency. Do not wait to see if the symptoms will go away. Get medical help right away. Call your local emergency services (911 in the [place] Do not drive yourself to the hospital. Summary Benign prostatic hyperplasia (BPH) is an enlarged prostate that is caused by the normal aging process and not by cancer. An enlarged prostate can press on the urethra. This can make it hard to pass urine. This condition is part of a normal aging process and is more likely to develop in men over the age of 50 years. Get help right away if you suddenly cannot urinate. This information is not intended to replace advice given to you by your health care provider. Make sure you discuss any questions you have with your health care provider. Document Released: 08/18/2006 Document Revised: 07/13/2019 Document Reviewed: 09/22/2017 [employer] Patient Education 2020 [employer]. Follow Up Care 10/15/2021 11:33:12 With:EUGENIO DEVINE, Sameer Harrison, URL Address: [facility] [address] , [place] [address] [phone] When:Within 1 Year(s) Comments:w/ PSA [facility] Evaluation + Plan note Future Appointments Appointment Date:06/13/2023 09:45:00 AM Scheduled Provider:Sameer BROWNING MD Location:[facility] Appointment Type:URO Office Visit Diagnostic Tests PendingPSA Total 06/14/22 [facility] Evaluation + Plan note Future Appointments Appointment Date:08/01/2023 01:00:00 PM Scheduled Provider:Anish MORRISON MD Location:[facility] Appointment Type:GS New 30 Diagnostic Tests PendingPSA Total 06/13/23 [facility] Evaluation note Diagnosis Mixed hyperlipidemia- Primary Tobacco abuse Tobacco use disorder [facility]* Diagnosis Hyperlipidemia, unspecified [facility] this [facility]* Diagnosis Well adult health check- Primary Unspecified general medical examination Mixed hyperlipidemia Cigarette nicotine dependence without complication Elevated PSA Elevated prostate specific antigen (PSA) documented in this encounter [facility]* Diagnosis Abdominal aortic aneurysm (AAA) without rupture, unspecified part ([facility])- Primary Cigarette smoker Tobacco use disorder Mixed hyperlipidemia documented in this [facility]* Diagnosis Aortic aneurysm without rupture, unspecified portion of aorta- Primary documented in this encounter [facility]* Diagnosis Abdominal aortic aneurysm (AAA) without rupture, unspecified part- Primary Aortic aneurysm without rupture, unspecified portion of aorta Abdominal aortic aneurysm (AAA) without rupture, unspecified part- Primary documented in this encounter [facility] Narrative No data available for this section [facility] Hospital Discharge instructions No data available for this section General Surgery [place] InstructionsNot on filedocumented in this encounter [facility] on filedocumented in this encounter [facility]Not on filedocumented in this encounter [facility] filed[facility] in this [facility] filedocumented in [facility] No data available for this section [facility] Summary Purpose Family History No Family History Records FoundNo Family History Records Found No data available for this section No data available for this section No Family History Records FoundNo Family History Records FoundNo Family History Records FoundNo Family History Records Found No data available for this section No Family History Records Found Advance Directives No Advanced Directives Records FoundNo Advanced Directives Records FoundNo Advanced Directives Records FoundNo Advanced Directives Records FoundNo Advanced Directives Records FoundNo Advanced Directives Records FoundNo Advanced Directives Records Found Additional Source Comments (unrecognized sect ion and content) No Status Records FoundNo Status Records FoundNo Status Records FoundNo Status Records FoundNo Status Records FoundNo Status Records FoundNo Status Records Found INFORMATION SOURCE (unrecogn ized section and content) DATE CREATED AUTHOR 03/23/2022 [facility] DATE CREATED AUTHOR AUTHOR'S ORGANIZ ATION 06/10/2022 [facility] DATE CREATED AUTHOR AUTHOR'S ORGANIZ ATION 08/04/2023 [facility] DATE CREATED AUTHOR AUTHOR'S ORGANIZ ATION 07/10/[address] [facility] DATE CREATED AUTHOR AUTHOR'S ORGANIZ ATION 11/26/2024 [facility] DATE CREATED AUTHOR AUTHOR'S ORGANIZ ATION 11/30/[address] [facility] DATE CREATED AUTHOR AUTHOR'S ORGANIZ ATION 12/05/2024 [facility] Patient Care team informatio n (unrecognized section and content) [employer] Relationship Specialty Start Date End Date Davion Stephenson DO [address], [address] [place] [address] PCP - General Family Medicine 07/10/22 [employer] Relationship Specialty Start Date End Date Davion Stephenson DO [address], [place] [address] PCP - General Family Medicine 07/10/22 [employer] Relationship Specialty Start Date End Date Jose De JesuswadeDavion carey DO [address], [place] [address] PCP - General Family Medicine 07/10/22 [employer] Relationship Specialty Start Date End Date SachinDavion DO [address], [place] [address] PCP - General Family Medicine 07/10/22 [employer] Relationship Specialty Start Date End Date SachinDavion [address], [place] [address] PCP - General Family Medicine 07/10/22 [employer] Relationship Specialty Start Date End Date Jose De JesuspetraDavion [address], [place] [address] PCP - General Family Medicine 07/10/22 [employer] Relationship Specialty Start Date End Date Jose De JesuspetraDavion [address], [place] [address] PCP - General Family Medicine 07/10/22 [employer] Relationship Specialty Start Date End Date SachinDavion [address], [place] [address] PCP - General Family Medicine 07/10/22 [employer] Relationship Specialty Start Date End Date Sachin Davion G, DO [address], [place] [address] PCP - General Family Medicine 07/10/22 Reason for Visit (unrecogniz ed section and content) Reason Comments Hyperlipidemia Reason Onset Date Comments Med Refill 06/09/2024 Reason Comments Follow-up Reason Comments discussion about anurysm in bladder Reason Onset Date Comments ultra sound result 11/19/2024 Reason Comments 1 week f/u CTA FOR RECORDS PERTAINING TO PATIENTS WHO ARE OR HAVE BEEN ENROLLED IN A CHEMICAL DEPENDENCY/SUBSTANCEABUSE PROGRAM, SOME INFORMATION MAY BE OMITTED. This clinical summary was aggregated from multiple sources. Caution should be exercised in using it in the provision of clinical care. This summary normalizes information from multiple sources, and as a consequence, information in this document may materially change the coding, format and clinical context of patient data. In addition, data may be omitted in some cases. CLINICAL DECISIONS SHOULD BE BASED ON THE PRIMARY CLINICAL RECORDS. [employer] provides no warranty or guarantee of the accuracy or completeness of information in this document.
--- NOTE | 2024-12-10 07:40 | NM_ITS ---
Patient Name: IRMA RAMÍREZ MR#: [id number] : 1960 Exam Date: 12/10/2024 Ordering Doctor: DR. Vasquez Louis M.D. RADIOLOGY REPORT PROCEDURE: NM RICO PERF SPECT REST STR COMPARISON: None. INDICATIONS: INFRARENAL ABDOMINAL AORTIC ANEURYSM, PRE- OP EVALUATION TECHNIQUE: Exam Description: Stress/Rest one day protocol gated SPECT Rest Imagin.9 mCi Tc-99m Cardiolite IV on 12/10/2024 Stress Imaging 30.9 mCi Tc-99m Cardiolite IV on 12/10/2024 Exercise Protocol: 0.4 mg Lexiscan given IV Heart Rate (bpm): Rest: 74 Max: 102 PMHR: 65 Blood Pressure: Rest: 122/70 Max: 160/84 Symptoms: Rest and peak stress ECG findings were pending, and the exercise portion of the study was pending per attending physician [facility]. For more details, please see separate cardiac stress test report. FINDINGS: QUALITY OF STUDY: Good PERFUSION DEFECT: None LOCATION: N/A SIZE: N/A SEVERITY: N/A TYPE: N/A WALL MOTION: Normal wall motion LV SIZE: 76 mL. TID / TCD: 0.9 LVEF: Calculated EF 64%. SUMMARY: Myocardial perfusion imaging study is NORMAL CONCLUSION: 1. Myocardial perfusion is normal with soft tissue attenuation 2. Global left ventricular systolic function is normal 3. No evidence of transient ischemic dilatation Dictated by: Chelsey Strauss M.D. on 12/13/2024 at 14:45 Approved by: Chelsey Strauss M.D. on 12/13/2024 at 14:47
--- NOTE | 2024-12-10 08:00 | CA_ITS ---
Patient Name: IRMA RAMÍREZ MR#: [id number] : 1960 Exam Date: 12/10/2024 Ordering Doctor: DR. Vasquez Louis M.D. ECHOCARDIOGRAM REPORT PROCEDURE: CA ECHO DOPPLER COMPLETE INDICATIONS: Preop, abdominal aortic aneurysm COMPARISON: None. DESCRIPTION: COMPLETE ECHOCARDIOGRAM Real-time transthoracic echocardiography with 2D, M-mode, spectral and color flow Doppler performed. QUALITY: Technical quality was good. LEFT VENTRICLE: Normal chamber size. Proximal septal hypertrophy (sigmoid septum). Systolic function is normal. LV EF: Normal left ventricular ejection fraction, (>55%). DIASTOLIC: Normal diastolic function. ATRIAL SEPTUM: Visually appears intact. LEFT ATRIUM: Normal chamber size. RIGHT ATRIUM: Normal chamber size. RIGHT VENTRICLE: Normal chamber size. Normal right ventricular systolic function. TRICUSPID VALVE: Normal mobility and thickness. No stenosis with no regurgitation. Unable to assess right-sided pressures due to lack of measurable tricuspid regurgitation. MITRAL VALVE: Normal mobility and thickness. No evidence of mitral valve stenosis. There is no mitral annular calcification. No mitral regurgitation. AORTIC VALVE: Normal trileaflet appearance. No visible sclerosis. Normal leaflet mobility. No evidence of aortic valve stenosis. No aortic regurgitation. AORTIC ROOT: Mildly dilated measuring 4.1 cm. The ascending aorta is not well-visualized. PULMONIC VALVE: Not well visualized. No stenosis. No regurgitation. PERICARDIUM: No evidence of pericardial effusion. IVC: Collapses with inspirations. PLEURA: CONCLUSION: 1. Normal left ventricular size and systolic function. LVEF is estimated at 60 to 65%. 2. Normal ventricular size and systolic function. 3. Normal diastolic function. 4. No significant valvular dysfunction. 5. Unable to assess right-sided pressures due to lack of measurable tricuspid regurgitation. 6. Mildly dilated aortic root measuring 4.1 cm. Adult Echocardiography Procedure Report Left Ventricle LVEDD (3.7 - 5.6 cm): 4.45 cm LVESD (2.2 - 4.0 cm): 2.60 cm LVIVS thickness (0.6 - 1.2 cm): 1.14 cm LVPW thickness (0.5 - 1.0 cm): 0.75 cm e': 0.13 m/s E - e': 3.20 LVOT Max Gradient: 2.09 mm[Hg] LVOT Area (cm2): 0.72 m/s Peak Velocity (LVOT): 0.72 m/s Mean Velocity (LVOT): 0.49 m/s LVOT Diameter 2.53 cm Left Atrium LA Volume Index (2D A2C): 18.19 ml/m2 Left Atrium Systolic Dimension: 3.32 cm Mitral Valve MV E to A Ratio: 0.65 Mitral Valve A-Wave Peak Velocity: 0.65 m/s Mitral Valve E-Wave Peak Velocity: 0.42 m/s Right Ventricle Aorta AO Root Diam: 4.08 cm Aortic Valve AoV Area (Peak Colin): 4.13 cm2, 4.13 cm2 AoV Area (VTI): 4.58 cm2, 4.58 cm2 Peak Velocity(Antegrade Flow): 0.88 m/s Peak Gradient(Antegrade Flow): 3.07 mm[Hg] Mean Velocity(Antegrade Flow): 0.56 m/s Mean Gradient(Antegrade Flow): 1.44 mm[Hg] Velocity Time Integral: 15.13 cm Tricuspid Valve Pulmonic Valve Peak Gradient: 2.97 mm[Hg], 2.17 mm[Hg] Right Atrium Right Atrium Systolic Pressure: 33.23 ml, 33.23 ml Dictated by: Edi Ashley M.D. on 12/11/2024 at 18:28 Approved by: Edi Ashley M.D. on 12/11/2024 at 18:31
[2024-12-10] MEDS: REGADENOSON 0.4 MG/5 ML SYRINGE IV (10:09)
--- NOTE | 2024-12-10 10:10 | PC.NURSE ---
Nursing Note Cardiac Stress Test Reviewed: Medication, allergies and patient history reviewed. Stress Test: [ x] Patient tolerated stress test well. [ ] Patient unable to tolerate walking on treadmill. Switched to Lexiscan stress test. [ x] No chest pain noted per patient [ ] Chest pain that resolved prior to leaving stress lab. [x ] No dyspnea noted. [ ] Dyspnea that resolved prior to leaving stress lab. [ x] Patient left stress lab asymptomatic and hemodynamically stable. [ ] Patient taken to the Emergency Room due to non-resolving symptoms following stress test. [ ] Patient achieved target heart rate. [ ] Patient unable to achieve target heart rate. [ ] Aminophylline administered as reversal agent to Lexiscan (Regadenoson). [ ] Nitro administered. Nursing Comments:
== END 2024-12-10 07:22 | disposition home or self-care (01) ==
LOC: NM 07:22
PROVIDERS: PCP Nurse Practitioner Family; Visit Provider Internal Medicine Cardiovascular Disease
DX: Z01.818 Encounter for other preprocedural examination (principal); I71.43 Infrarenal abdominal aortic aneurysm, without rupture
CPT/HCPCS: 78452; 93017; 93306; A9500; J2785

== ENCOUNTER 2025-01-21 19:19 | Emergency (ER) | payer OTHER, SELFPAY ==
--- OUTSIDE RECORDS SUMMARY | 2025-01-13 13:32 | XMS_ITS ---
Author Organization [facility] Care Team Providers Care Operating System Programmer Name Role Phone AIMEE LOUIS Attending Unavailable FURLONG, PRISCILA G Attending Unavailable FURLONG, PRISCILA G Referring Unavailable FURLONG, PRISCILA G Primary Care Unavailable FURLONG, PRISCILA G Referring Unavailable FURLONG, PRISCILA G Primary Care Unavailable FURLONG, PRISCILA G Attending Unavailable FURLONG, PRISCILA G Referring Unavailable FURLONG, PRISCILA G Primary Care Unavailable JYA, MOHAMED F Attending Unavailable FURLONG, PRISCILA G Referring Unavailable FURLONG, PRISCILA G Primary Care Unavailable JAY, MOHAMED F Attending Unavailable JAY, MOHAMED F Referring Unavailable FURLONG, PRISCILA G Primary Care Unavailable JAY, MOHAMED F Attending Unavailable FURLONG, PRISCILA G Referring Unavailable FURLONG, PRISCILA G Primary Care Unavailable JAY, MOHAMED F Attending Unavailable FURLONG, PRISCILA G Referring Unavailable FURLONG, PRISCILA G Primary Care Unavailable FURLONG, PRISCILA G Attending Unavailable FURLONG, PRISCILA G Referring Unavailable FURLONG, PRISCILA G Primary Care Unavailable Jay, Mohamed F. Admitting Unavailable Jay, Mohamed F. Attending Unavailable Jay, Mohamed F. Referring Unavailable Jay, Mohamed F. Admitting Unavailable Jay, Mohamed F. Attending Unavailable Jay, Mohamed F. Referring Unavailable Jay, Mohamed F. Admitting Unavailable Jay, Mohamed F. Attending Unavailable Jay, Mohamed F. Referring Unavailable April Thompson Admitting Unavailable April Thompson Attending Unavailable April Thompson Referring Unavailable April Thompson FBeckie Admitting Unavailable April Thompson Attending Unavailable April Thompson Referring Unavailable Purpose PROBLEMS DATE TYPE CONDITION / CODE ATTENDING STATUS [facility] 01/13/2025 Unknown Personal history of nicotine dependence / Z87.891(ICD-10) ILENE PRISCILA [facility] 01/03/2025 Unknown I71.43 / I71.43(ICD-10) April Thompson [facility] 11/29/2024 Admitting Diagnosis Infrarenal abdominal aortic aneurysm, without rupture / I71.43(ICD-10) [facility] 11/29/2024 Admitting Diagnosis Encounter for other preprocedural examination / Z01.818(ICD-10) [facility] 11/25/2024 Unknown Aortic aneurysm of unspecified site, without rupture / I71.9(ICD-10) APRIL THOMPSON [facility] 08/09/2022 Unknown Abdominal aortic aneurysm, without rupture, unspecified / I71.40(ICD-10) [facility] Unknown Nicotine depende nce, cigarettes, uncomplicated / F17.210(ICD-10) [facility] 11/15/2024 Unknown discussion about anurysm in bladder / UNK(Unknown) [facility] 08/09/2022 Unknown Mixed hyperlipid emia / E78.2(ICD-10) [facility] 07/08/2024 Unknown Encounter for general adult medical examination without abnormal findings / Z00.00(ICD-10) [facility] 07/08/2024 Unknown Follow-up / [facility]RE[facility]EXT(AOF) [facility] PROCED[facility] No Procedure Records Found VITAL SIGNS No Vital Signs Records Found RESULTS PATIENT EDUCATION - TEXT Observed: 01/04 11:58 AM Status: C Source: [facility] Patient Education - Text Procedures Abdominal Aortic Aneurysm Endograft Repair, Care After After abdominal aortic aneurysm endograft repair it is common to have pain or soreness at the incision site. You may also have tiredness (fatigue). Follow these instructions at home: Medicines ??? Take ghhl-vae-bsgttlf and prescription medicines only as told by your health care provider. ??? If you were prescribed antibiotics, take them as told by your provider. Do not stop using the antibiotic even if you start to feel better. Incision care ??? Follow instructions from your provider about how to take care of your incisions. Make sure you: ? Wash your hands with soap and water for at least 20 seconds before and after you change your bandage (dressing). If soap and water are not available, use hand ethologist. ? Change your dressing as told by your health care provider. ? Leave stitches (sutures), skin glue, or tape strips in place. These skin closures may need to stay in place for 2 weeks or longer. If tape strip edges start to loosen and curl up, you may trim the loose edges. Do not remove tape strips completely unless your provider tells you to do that. ??? Check your incision area every day for signs of infection. Check for: ? Redness, swelling, or more pain. ? Fluid or blood. ? Warmth. ? Pus or a bad smell. ??? Keep the incision area clean and dry. ??? Check your incisions for a lump or swelling. These can be signs of bleeding at your incision site. Activity ??? Rest as told by your provider. ??? Do not sit for a long time without moving. Get up to take short walks every 1?2 hours. This will improve blood flow and breathing. Ask for help if you feel weak or unsteady. ??? You may have to avoid lifting. Ask your provider how much you can safely lift. ??? Do not drive or operate machinery until your provider says that it is safe. ??? Return to your normal activities as told by your provider. Ask your provider what activities are safe for you. Lifestyle ??? Do not use any products that contain nicotine or tobacco. These products include cigarettes, chewing tobacco, and vaping devices, such as e-cigarettes. These can delay incision healing after surgery. If you need help quitting, ask your provider. ??? Make any lifestyle changes that your provider suggests. You may need to: ? Keep your blood pressure under control. ? Find ways to lower stress. ? Eat healthy foods that are good for your heart. These include vegetables, fruits, and whole grains that add fiber to your diet. ? Get regular exercise once your provider tells you it is safe to do so. General instructions ??? Do not take baths, swim, or use a hot tub until your provider approves. Ask your provider if you may take showers. You may only be allowed to take sponge baths. ??? Drink enough fluid to keep your pee (urine) pale yellow. ??? Wear compression stockings as told by your provider. These stockings help to prevent blood clots and reduce swelling in your legs. ??? Keep all follow-up visits. Your provider will need to monitor your healing and make sure the graft is working like it should. Your health care provider may give you more instructions. Make sure you know what you can and cannot do. Contact a health care provider if: ??? You have pain in your abdomen, chest, legs, or back. ??? You have any signs of infection. ??? You have a fever. Get help right away if: ??? You have trouble breathing. ??? You have sudden pain in your legs, or you have trouble moving either of your legs. ??? You feel light-headed, or you faint. These symptoms may be an emergency. Get help right away. Call 911. ??? Do not wait to see if the symptoms will go away. ??? Do not drive yourself to the hospital. This information is not intended to replace advice given to you by your health care provider. Make sure you discuss any questions you have with your health care provider. Document Revised: 03/25/2023 Document Reviewed: 03/25/2023 [employer] Patient Education ? 2023 [employer]Abdominal Aortic Aneurysm Endograft Repair Abdominal aortic aneurysm endograft repair is surgery to fix an abdominal aortic aneurysm (AAA). An aneurysm is a bulge in an artery. It happens when blood pushes against a weak or damaged artery wall. An AAA happens in the lower part of the main artery of the body (aorta). This repair may be done if the AAA: ??? Causes pain in your back, abdomen, or side. ??? Gets so large it might burst (rupture). A rupture is a medical emergency. It can cause bleeding inside your body. During the repair, a tube made of fabric and metal mesh (endograft or stent- graft) is put in the weak part of the aorta to fix it. Tell a health care provider about: ??? Any allergies you have. ??? All medicines you are taking, including vitamins, herbs, eye drops, creams, and xfnt-wnc-quhtjok medicines. ??? Any problems you or family members have had with anesthesia. ??? Any bleeding problems you have. ??? Any surgeries you have had. ??? Any medical conditions you have. ??? Whether you are or may be . What are the risks? Your health care provider will talk with you about risks. These may include: ??? Infection. ??? Bleeding. ??? Allergic reactions to medicines. ??? Damage to nearby structures or organs. ??? Blood leaking out around the graft. ??? The endograft moving from where it was placed. ??? Blocked blood flow through the graft. Other problems may include: ??? Kidney problems. ??? Blood clots. ??? Blocked blood flow to the legs. This is rare. ??? Rupture of the aorta, even after an endograft repair. This is rare. What happens before the procedure? When to stop eating and drinking Follow instructions from your provider about what you may eat and drink. These may include: ??? 8 hours before your procedure ? Stop eating most foods. Do not eat meat, fried foods, or fatty foods. ? Eat only light foods, such as toast or crackers. ? All liquids are okay except energy drinks and alcohol. ??? 6 hours before your procedure ? Stop eating. ? Drink only clear liquids, such as water, clear fruit juice, black coffee, plain tea, and sports drinks. ? Do not drink energy drinks or alcohol. ??? 2 hours before your procedure ? Stop drinking all liquids. ? You may be allowed to take medicines with small sips of water. If you do not follow your provider's instructions, your procedure may be delayed or canceled. Medicines Ask your provider about: ??? Changing or stopping your regular medicines. These include any diabetes medicines or blood thinners you take. ??? Taking medicines such as aspirin and ibuprofen. These medicines can thin your blood. Do not take them unless your provider tells you to. ??? Taking rdwj-dno-gexlzon medicines, vitamins, herbs, and supplements. Tests You may have tests done. These may include: ??? Blood tests. ??? Electrocardiogram (ECG). This test checks your heart rhythm. ??? A stress test, if you have signs of heart problems. ??? Imaging tests, such as ultrasound, CT scan, or MRI. These may be done to see where the aneurysm is and how big it is. Surgery safety Ask your provider: ??? How your surgery site will be marked. ??? What steps will be taken to help prevent infection. These steps may include: ? Removing hair at the surgery site. ? Washing skin with a soap that kills germs. ? Taking antibiotics. General instructions ??? Do not use any products that contain nicotine or tobacco for at least 4 weeks before the procedure. These products include cigarettes, chewing tobacco, and vaping devices, such as e-cigarettes. If you need help quitting, ask your provider. ??? If you will be going home right after the procedure, plan to have a responsible adult: ? Take you home from the hospital. You will not be allowed to drive. ? Care for you for the time you are told. What happens during the procedure? An IV will be inserted into one of your veins. ??? You may be given: ? A sedative. This helps you relax. ? Anesthesia. This keeps you from feeling pain. It will make you fall asleep for surgery. ??? Small incisions or a puncture will be made on one or both sides of your groin. ??? Soft tubes (catheters) will be passed through the incisions. They will be moved up into the aneurysm in the aorta. ??? With the help of X-ray pictures, your provider will guide the graft through the catheter to the aneurysm. ??? The graft will be released to seal off the aneurysm and line the aorta. It will stay in place. It will not be taken out. ??? X-rays will be used to make sure that the graft is correctly placed. ??? The catheter will be taken out. ??? The incision may be closed with stitches (sutures), skin glue, or tape strips. It may be covered with a bandage (dressing). The procedure may vary among providers and hospitals. What happens after the procedure? Your blood pressure, heart rate, breathing rate, and blood oxygen level will be monitored until you leave the hospital or clinic. ??? You may be given pain medicine as needed. ??? You will lie flat for a number of hours, without bending your legs. ??? When told, you should get up and move around a number of times each day. Slowly become more active. ??? Imaging tests may be done. These will check that the endograft was put in the right spot and that it is working like it should. ??? Wear compression stockings as told by your provider. These stockings help to prevent blood clots and reduce swelling in your legs. This information is not intended to replace advice given to you by your health care provider. Make sure you discuss any questions you have with your health care provider. Document Revised: 03/25/2023 Document Reviewed: 03/25/2023 [employer] Patient Education ? 2023 [employer]. INPATIENT PATIENT SUMMARY Observed: 01/2025 11:58 AM Status: C Source: [facility] Inpatient Patient Summary IRMA RAMÍREZ :1960 Visit Date:01/03/2025 Inpatient Discharge Instructions Your Care Team Admitting Physician - April Thompson MD Referring Physician - April Thompson MD Reason for Your Visit I71.40 Your Diagnosis AAA (abdominal aortic aneurysm) Hyperlipidemia Tests Performed CV Peripheralvascular -- Results Pending -- Please visit your patient portal for your results or contact your primary care physician. This Is Your Medications List aspirin (Aspirin Low Dose 81 mg oral tablet) rosuvastatin (rosuvastatin 10 mg Tab) Procedure History Aortic endovascular stent graft (01/03/2025), None. Discharge Vitals Temperature (Oral) 36.8 ???C Heart Rate (Monitored) 84 Respiratory Rate 14 Blood Pressure 129/69 Blood Pressure 142/62(Line) What to do next Instructions From Your Doctor Event Name Event Result Pending Diagnostic Test Results None Discharge Instructions Return to ER if symptoms change or worsen. Please follow Dr. Thompson's instructions as well. New Follow Up Appointments after Discharge Follow Up with Jay DEVINE, April Barboza When: Within 2 to 4 weeks Comments: Call for followup appointment and will need CTA run off prior to appt Where: [place] [address]- Follow Up with PRISCILA ODOM When: Within 7 to 10 days Comments: Call for followup appointment Call physician if symptoms worsen Where: [address] [place] [address] Business (1) Medications What How Much When Instructions Next Dose Unchanged aspirin (Aspirin Low Dose 81 mg oral tablet) 1 tab By Mouth Every day 5/7 AM Unchanged rosuvastatin (rosuvastatin 10 mg Tab) 1 Tablets By Mouth Every day 5/7 AM Test Results CBC BMP WBC: 9.8 E9/L (01/04/25 05:47:00) Glucose Lvl: 102 mg/dL (01/04/25 05:47:00) RBC: 4.7 E12/L (01/04/25 05:47:00) BUN: 14 mg/dL (01/04/25 05:47:00) HGB: 13.7 gm/dL (01/04/25 05:47:00) Creatinine: 0.5 mg/dL (01/04/25 05:47:00) Hct: 41.9 % (01/04/25 05:47:00) BUN/Creat Ratio: 28 High (01/04/25 05:47:00) MCV: 88.4 fL (01/04/25 05:47:00) Sodium Lvl: 134 mmol/L Low (01/04/25 05:47:00) MCH: 28.9 pg (01/04/25 05:47:00) Potassium Lvl: 3.7 mmol/L (01/04/25 05:47:00) MCHC: 32.7 gm/dL (01/04/25 05:47:00) Chloride: 107 mmol/L (01/04/25 05:47:00) RDW: 14.3 % High (01/04/25 05:47:00) CO2: 21 mmol/L (01/04/25 05:47:00) Platelet: 163 E9/L (01/04/25 05:47:00) AGAP: 10 mEq/L (01/04/25 05:47:00) MPV: 7.4 fL (01/04/25 05:47:00) Calcium Lvl: 8.7 mg/dL Low (01/04/25 05:47:00) Allergies No Known Allergies Problems Ongoing - Any problem that you are currently receiving treatment for. AAA (abdominal aortic aneurysm) BMI 25.0-25.9,adult BPH with obstruction/lower urinary tract symptoms Depression Elevated PSA Hyperlipidemia Screening for malignant neoplasm of colon Smoker Devices Implanted/Removed This Visit Notice: You have devices implanted this visit that may not be MRI compatible. Implanted EVAR Abdominal Aorta Endurant Stent Graft System 01/03/2025 [employer]urant Stent Graft System 01/03/2025 Endurant Stent Graft System 01/03/2025 [employer] Abdominal Aortic Aneurysm Endograft Repair, Care After After abdominal aortic aneurysm endograft repair it is common to have pain or soreness at the incision site. You may also have tiredness (fatigue). Follow these instructions at home: Medicines ??? Take wpsd-hsi-sdnkyld and prescription medicines only as told by your health care provider. ??? If you were prescribed antibiotics, take them as told by your provider. Do not stop using the antibiotic even if you start to feel better. Incision care ??? Follow instructions from your provider about how to take care of your incisions. Make sure you: ? Wash your hands with soap and water for at least 20 seconds before and after you change your bandage (dressing). If soap and water are not available, use hand ethologist. ? Change your dressing as told by your health care provider. ? Leave stitches (sutures), skin glue, or tape strips in place. These skin closures may need to stay in place for 2 weeks or longer. If tape strip edges start to loosen and curl up, you may trim the loose edges. Do not remove tape strips completely unless your provider tells you to do that. ??? Check your incision area every day for signs of infection. Check for: ? Redness, swelling, or more pain. ? Fluid or blood. ? Warmth. ? Pus or a bad smell. ??? Keep the incision area clean and dry. ??? Check your incisions for a lump or swelling. These can be signs of bleeding at your incision site. Activity ??? Rest as told by your provider. ??? Do not sit for a long time without moving. Get up to take short walks every 1???2 hours. This will improve blood flow and breathing. Ask for help if you feel weak or unsteady. ??? You may have to avoid lifting. Ask your provider how much you can safely lift. ??? Do not drive or operate machinery until your provider says that it is safe. ??? Return to your normal activities as told by your provider. Ask your provider what activities are safe for you. Lifestyle ??? Do not use any products that contain nicotine or tobacco. These products include cigarettes, chewing tobacco, and vaping devices, such as e-cigarettes. These can delay incision healing after surgery. If you need help quitting, ask your provider. ??? Make any lifestyle changes that your provider suggests. You may need to: ? Keep your blood pressure under control. ? Find ways to lower stress. ? Eat healthy foods that are good for your heart. These include vegetables, fruits, and whole grains that add fiber to your diet. ? Get regular exercise once your provider tells you it is safe to do so. General instructions ??? Do not take baths, swim, or use a hot tub until your provider approves. Ask your provider if you may take showers. You may only be allowed to take sponge baths. ??? Drink enough fluid to keep your pee (urine) pale yellow. ??? Wear compression stockings as told by your provider. These stockings help to prevent blood clots and reduce swelling in your legs. ??? Keep all follow-up visits. Your provider will need to monitor your healing and make sure the graft is working like it should. Your health care provider may give you more instructions. Make sure you know what you can and cannot do. Contact a health care provider if: ??? You have pain in your abdomen, chest, legs, or back. ??? You have any signs of infection. ??? You have a fever. Get help right away if: ??? You have trouble breathing. ??? You have sudden pain in your legs, or you have trouble moving either of your legs. ??? You feel light-headed, or you faint. These symptoms may be an emergency. Get help right away. Call 911. ??? Do not wait to see if the symptoms will go away. ??? Do not drive yourself to the hospital. This information is not intended to replace advice given to you by your health care provider. Make sure you discuss any questions you have with your health care provider. Document Revised: 03/25/2023 Document Reviewed: 03/25/2023 [employer] Patient Education ??? 2023 [employer]. Abdominal Aortic Aneurysm Endograft Repair Abdominal aortic aneurysm endograft repair is surgery to fix an abdominal aortic aneurysm (AAA). An aneurysm is a bulge in an artery. It happens when blood pushes against a weak or damaged artery wall. An AAA happens in the lower part of the main artery of the body (aorta). This repair may be done if the AAA: ??? Causes pain in your back, abdomen, or side. ??? Gets so large it might burst (rupture). A rupture is a medical emergency. It can cause bleeding inside your body. During the repair, a tube made of fabric and metal mesh (endograft or stent- graft) is put in the weak part of the aorta to fix it. Tell a health care provider about: ??? Any allergies you have. ??? All medicines you are taking, including vitamins, herbs, eye drops, creams, and pskw-zdf-ybniwkw medicines. ??? Any problems you or family members have had with anesthesia. ??? Any bleeding problems you have. ??? Any surgeries you have had. ??? Any medical conditions you have. ??? Whether you are or may be . What are the risks? Your health care provider will talk with you about risks. These may include: ??? Infection. ??? Bleeding. ??? Allergic reactions to medicines. ??? Damage to nearby structures or organs. ??? Blood leaking out around the graft. ??? The endograft moving from where it was placed. ??? Blocked blood flow through the graft. Other problems may include: ??? Kidney problems. ??? Blood clots. ??? Blocked blood flow to the legs. This is rare. ??? Rupture of the aorta, even after an endograft repair. This is rare. What happens before the procedure? When to stop eating and drinking Follow instructions from your provider about what you may eat and drink. These may include: ??? 8 hours before your procedure ? Stop eating most foods. Do not eat meat, fried foods, or fatty foods. ? Eat only light foods, such as toast or crackers. ? All liquids are okay except energy drinks and alcohol. ??? 6 hours before your procedure ? Stop eating. ? Drink only clear liquids, such as water, clear fruit juice, black coffee, plain tea, and sports drinks. ? Do not drink energy drinks or alcohol. ??? 2 hours before your procedure ? Stop drinking all liquids. ? You may be allowed to take medicines with small sips of water. If you do not follow your provider's instructions, your procedure may be delayed or canceled. Medicines Ask your provider about: ??? Changing or stopping your regular medicines. These include any diabetes medicines or blood thinners you take. ??? Taking medicines such as aspirin and ibuprofen. These medicines can thin your blood. Do not take them unless your provider tells you to. ??? Taking yqsr-nrk-hpbxdil medicines, vitamins, herbs, and supplements. Tests You may have tests done. These may include: ??? Blood tests. ??? Electrocardiogram (ECG). This test checks your heart rhythm. ??? A stress test, if you have signs of heart problems. ??? Imaging tests, such as ultrasound, CT scan, or MRI. These may be done to see where the aneurysm is and how big it is. Surgery safety Ask your provider: ??? How your surgery site will be marked. ??? What steps will be taken to help prevent infection. These steps may include: ? Removing hair at the surgery site. ? Washing skin with a soap that kills germs. ? Taking antibiotics. General instructions ??? Do not use any products that contain nicotine or tobacco for at least 4 weeks before the procedure. These products include cigarettes, chewing tobacco, and vaping devices, such as e-cigarettes. If you need help quitting, ask your provider. ??? If you will be going home right after the procedure, plan to have a responsible adult: ? Take you home from the hospital. You will not be allowed to drive. ? Care for you for the time you are told. What happens during the procedure? An IV will be inserted into one of your veins. ??? You may be given: ? A sedative. This helps you relax. ? Anesthesia. This keeps you from feeling pain. It will make you fall asleep for surgery. ??? Small incisions or a puncture will be made on one or both sides of your groin. ??? Soft tubes (catheters) will be passed through the incisions. They will be moved up into the aneurysm in the aorta. ??? With the help of X-ray pictures, your provider will guide the graft through the catheter to the aneurysm. ??? The graft will be released to seal off the aneurysm and line the aorta. It will stay in place. It will not be taken out. ??? X-rays will be used to make sure that the graft is correctly placed. ??? The catheter will be taken out. ??? The incision may be closed with stitches (sutures), skin glue, or tape strips. It may be covered with a bandage (dressing). The procedure may vary among providers and hospitals. What happens after the procedure? Your blood pressure, heart rate, breathing rate, and blood oxygen level will be monitored until you leave the hospital or clinic. ??? You may be given pain medicine as needed. ??? You will lie flat for a number of hours, without bending your legs. ??? When told, you should get up and move around a number of times each day. Slowly become more active. ??? Imaging tests may be done. These will check that the endograft was put in the right spot and that it is working like it should. ??? Wear compression stockings as told by your provider. These stockings help to prevent blood clots and reduce swelling in your legs. This information is not intended to replace advice given to you by your health care provider. Make sure you discuss any questions you have with your health care provider. Document Revised: 03/25/2023 Document Reviewed: 03/25/2023 Elsevier Patient Education ??? 2023 [employer] Common Emergency Awareness Tips IS IT A STROKE? Act FAST and Check for these signs: FACE Does the face look uneven? ARM Does one arm drift down? SPEECH Does their speech sound strange? TIME Call at any sign of stroke Heart Attack Signs Chest discomfort: Most heart attacks involve discomfort in the center of the chest and lasts more than a few minutes, or goes away and comes back. It can feel like uncomfortable pressure, squeezing, fullness or pain. Discomfort in upper body: Symptoms can include pain or discomfort in one or both arms, back, neck, jaw or stomach. Shortness of breath: With or without discomfort. Other signs: Breaking out in a cold sweat, nausea, or lightheaded. Remember, MINUTES DO MATTER. If you experience any of these heart attack warning signs, call to get immediate medical attention! Patient Survey You may receive a survey in the mail asking you about your stay with us. We want to hear from you, please share your experience with us by completing your survey. Thank you for choosing [facility]. Felicitas Award Nomination The FELICITAS (Diseases Attacking the Immune SYstem) Award is an international recognition program that honors and celebrates the skillful, compassionate care nurses provide every day. Anyone who experiences or observes amazing care being provided by a nurse is encouraged to submit a nomination. To nominate your nurse, use your smart phone to scan the QR code below. Patient Portal You may access all of your results and other medical record information on our secure patient portal. If you are not signed up for this yet, please contact [facility] at [phone] to get signed up today. Patient Name: IRMA RAMÍREZ I have received this information and my questions have been answered. Patient/Electronic Organ Technician Name: Patient/Electronic Organ Technician Signature: Relationship to Patient: Witness Name/Signature: Date: INPATIENT CLINICAL SUMMARY Observed: 01/2025 11:58 AM Status: C Source: [facility] Inpatient Clinical Summary [place] [address] Clinical Summary Person Information: Name: IRMA RAMÍREZ Age: 64 Years : 1960 Sex: Male PCP: PRISCILA ODOM DO Marital Status: Single Race: White Ethnicity: or Language: Zambian Visit Id: Visit Reason: I71.40 Speciality: Acuity: Enc Type: Inpatient Med Service: Medical Arrival: 01/03/2025 09:57:29 Discharge: Dispo Type: Address: [address] [place] [address] [id number] Provider Notes: Diagnosis: 2:Hyperlipidemia Problems Active BMI 25.0-25.9,adult Screening for malignant neoplasm of colon BPH with obstruction/lower urinary tract symptoms Smoker Hyperlipidemia AAA (abdominal aortic aneurysm) Elevated PSA Depression Smoking Status: Former Smoker Functional Status: Sensory Deficits: History of Falls: Mobility Assistance Prior to Admission: ADLs: Independent Current Level of Assistance for Self-Care/Mobility: Cognitive Status: Allergies No Known Allergies Measurements: Height: 180 cm Weight: 108 kg Blood Pressure: 129 mmHg / 69 mmHg BMI: 33.33 kg/m2 Procedures Aortic endovascular stent graft (01/03/2025) Immunizations No Immunizations Documented This Visit Final Med List: aspirin (Aspirin Low Dose 81 mg oral tablet) 1 tab By Mouth every day. rosuvastatin (rosuvastatin 10 mg Tab) 1 Tablets By Mouth every day. Care Team Members: Attending Physician: April Thompson MD Consulting Physician: Referring Physician: April Thompson MD Follow up: With: Address: When: April Thompson MD [address] [place] [address] [phone] 02/14/2025 9:15 AM Comments: Will need CTA run off prior to appt . The Cardiology office will get the order placed. Please call the office for futher instructions. Thank you. With: Address: When: PRISCILA ODOM [address], [place] [id number] Business (1) Within 7 to 10 days Comments: Call for followup appointment Call physician if symptoms worsen Type Location Start Finish State Vascular Follow Up (FT) [facility] 02/14/2025 9:15 AM 02/14/2025 9:30 AM Confirmed Patient Education Information: Abdominal Aortic Aneurysm Endograft Repair, Care After; Abdominal Aortic Aneurysm Endograft Repair INPATIENT PATIENT SUMMARY Observed: 01/2025 11:45 AM Status: C Source: [facility] Inpatient Patient Summary [address] [address] Patient Discharge Instructions PERSON INFORMATION Name: IRMA RAMÍREZ Date of : 1960 Current Date: 01/04/2025 11:45:36 PHYSICIANS Admitting Physician: April Thompson MD Primary Care Physician: PRISCILA ODOM DO PCP Comment: Discharge Diagnosis: 2:Hyperlipidemia Condition at Discharge: Improved IRMA RAMÍREZ has been given the following list of follow-up instructions, prescriptions, and patient education materials: PATIENT FOLLOW-UP INFORMATION Diet: Discharge Activity: Discharge Restrictions: Wound Care Instructions: Remove Your Dressing In Days Call Your Doctor For: IF UNABLE TO CONTACT YOUR PHYSICIAN AND YOU FEEL IT IS AN EMERGENCY, GO TO THE NEAREST EMERGENCY ROOM OR CALL 911 Home Treatment: Devices/Equipment: Special Services: Additional Instructions: Return to ER if symptoms change or worsen. Please follow Dr. Thompson's instructions as well. Primary Care Physician to provide the following pending test results: None Follow up: With: Address: When: Jay DEVINE, April Barboza [address] [place] [address] Within 2 to 4 weeks Comments: Call for followup appointment and will need CTA run off prior to appt With: Address: When: PRISCILA CISNEROSCHENG [address] [place] [id number] [facility] () Within 7 to 10 days Comments: Call for followup appointment Call physician if symptoms worsen In the event that this physician does not participate in your insurance network, please consult with your insurance company to find a nearby participating provider. Comment: DARRELL Mcallister PHILLIP, have received the attached patient education materials/instructions and have verbalized understanding: Patient Signature Date Clinican/Nurse Signature Date HERE ARE THE MEDICATION CHANGES THAT OCCURRED DURING YOUR HOSPITAL STAY Medications to Continue with No Changes Other Medications aspirin (Aspirin Low Dose 81 mg oral tablet) 1 tab By Mouth every day. Last Dose: Next Dose: rosuvastatin (rosuvastatin 10 mg Tab) 1 Tablets By Mouth every day. Last Dose: Next Dose: Comment: MEDICATION LIST PROVIDED FOR YOU IS A LIST OF YOUR CURRENT MEDICATIONS. PLEASE CARRY THIS WITH YOU AT ALL TIMES. aspirin (Aspirin Low Dose 81 mg oral tablet) 1 tab By Mouth every day. rosuvastatin (rosuvastatin 10 mg Tab) 1 Tablets By Mouth every day. Pharmacy Information: Comment: PATIENT EDUCATION INFORMATION Instructions: Abdominal Aortic Aneurysm Endograft Repair, Care After After abdominal aortic aneurysm endograft repair it is common to have pain or soreness at the incision site. You may also have tiredness (fatigue). Follow these instructions at home: Medicines ??? Take diua-ilq-ivacbmo and prescription medicines only as told by your health care provider. ??? If you were prescribed antibiotics, take them as told by your provider. Do not stop using the antibiotic even if you start to feel better. Incision care ??? Follow instructions from your provider about how to take care of your incisions. Make sure you: ? Wash your hands with soap and water for at least 20 seconds before and after you change your bandage (dressing). If soap and water are not available, use hand ethologist. ? Change your dressing as told by your health care provider. ? Leave stitches (sutures), skin glue, or tape strips in place. These skin closures may need to stay in place for 2 weeks or longer. If tape strip edges start to loosen and curl up, you may trim the loose edges. Do not remove tape strips completely unless your provider tells you to do that. ??? Check your incision area every day for signs of infection. Check for: ? Redness, swelling, or more pain. ? Fluid or blood. ? Warmth. ? Pus or a bad smell. ??? Keep the incision area clean and dry. ??? Check your incisions for a lump or swelling. These can be signs of bleeding at your incision site. Activity ??? Rest as told by your provider. ??? Do not sit for a long time without moving. Get up to take short walks every 1?2 hours. This will improve blood flow and breathing. Ask for help if you feel weak or unsteady. ??? You may have to avoid lifting. Ask your provider how much you can safely lift. ??? Do not drive or operate machinery until your provider says that it is safe. ??? Return to your normal activities as told by your provider. Ask your provider what activities are safe for you. Lifestyle ??? Do not use any products that contain nicotine or tobacco. These products include cigarettes, chewing tobacco, and vaping devices, such as e-cigarettes. These can delay incision healing after surgery. If you need help quitting, ask your provider. ??? Make any lifestyle changes that your provider suggests. You may need to: ? Keep your blood pressure under control. ? Find ways to lower stress. ? Eat healthy foods that are good for your heart. These include vegetables, fruits, and whole grains that add fiber to your diet. ? Get regular exercise once your provider tells you it is safe to do so. General instructions ??? Do not take baths, swim, or use a hot tub until your provider approves. Ask your provider if you may take showers. You may only be allowed to take sponge baths. ??? Drink enough fluid to keep your pee (urine) pale yellow. ??? Wear compression stockings as told by your provider. These stockings help to prevent blood clots and reduce swelling in your legs. ??? Keep all follow-up visits. Your provider will need to monitor your healing and make sure the graft is working like it should. Your health care provider may give you more instructions. Make sure you know what you can and cannot do. Contact a health care provider if: ??? You have pain in your abdomen, chest, legs, or back. ??? You have any signs of infection. ??? You have a fever. Get help right away if: ??? You have trouble breathing. ??? You have sudden pain in your legs, or you have trouble moving either of your legs. ??? You feel light-headed, or you faint. These symptoms may be an emergency. Get help right away. Call 911. ??? Do not wait to see if the symptoms will go away. ??? Do not drive yourself to the hospital. This information is not intended to replace advice given to you by your health care provider. Make sure you discuss any questions you have with your health care provider. Document Revised: 03/25/2023 Document Reviewed: 03/25/2023 [employer] Patient Education ? 2023 [employer] Abdominal Aortic Aneurysm Endograft Repair Abdominal aortic aneurysm endograft repair is surgery to fix an abdominal aortic aneurysm (AAA). An aneurysm is a bulge in an artery. It happens when blood pushes against a weak or damaged artery wall. An AAA happens in the lower part of the main artery of the body (aorta). This repair may be done if the AAA: ??? Causes pain in your back, abdomen, or side. ??? Gets so large it might burst (rupture). A rupture is a medical emergency. It can cause bleeding inside your body. During the repair, a tube made of fabric and metal mesh (endograft or stent- graft) is put in the weak part of the aorta to fix it. Tell a health care provider about: ??? Any allergies you have. ??? All medicines you are taking, including vitamins, herbs, eye drops, creams, and xjss-bzm-ruqwykt medicines. ??? Any problems you or family members have had with anesthesia. ??? Any bleeding problems you have. ??? Any surgeries you have had. ??? Any medical conditions you have. ??? Whether you are or may be . What are the risks? Your health care provider will talk with you about risks. These may include: ??? Infection. ??? Bleeding. ??? Allergic reactions to medicines. ??? Damage to nearby structures or organs. ??? Blood leaking out around the graft. ??? The endograft moving from where it was placed. ??? Blocked blood flow through the graft. Other problems may include: ??? Kidney problems. ??? Blood clots. ??? Blocked blood flow to the legs. This is rare. ??? Rupture of the aorta, even after an endograft repair. This is rare. What happens before the procedure? When to stop eating and drinking Follow instructions from your provider about what you may eat and drink. These may include: ??? 8 hours before your procedure ? Stop eating most foods. Do not eat meat, fried foods, or fatty foods. ? Eat only light foods, such as toast or crackers. ? All liquids are okay except energy drinks and alcohol. ??? 6 hours before your procedure ? Stop eating. ? Drink only clear liquids, such as water, clear fruit juice, black coffee, plain tea, and sports drinks. ? Do not drink energy drinks or alcohol. ??? 2 hours before your procedure ? Stop drinking all liquids. ? You may be allowed to take medicines with small sips of water. If you do not follow your provider's instructions, your procedure may be delayed or canceled. Medicines Ask your provider about: ??? Changing or stopping your regular medicines. These include any diabetes medicines or blood thinners you take. ??? Taking medicines such as aspirin and ibuprofen. These medicines can thin your blood. Do not take them unless your provider tells you to. ??? Taking zexp-qko-dznsxcn medicines, vitamins, herbs, and supplements. Tests You may have tests done. These may include: ??? Blood tests. ??? Electrocardiogram (ECG). This test checks your heart rhythm. ??? A stress test, if you have signs of heart problems. ??? Imaging tests, such as ultrasound, CT scan, or MRI. These may be done to see where the aneurysm is and how big it is. Surgery safety Ask your provider: ??? How your surgery site will be marked. ??? What steps will be taken to help prevent infection. These steps may include: ? Removing hair at the surgery site. ? Washing skin with a soap that kills germs. ? Taking antibiotics. General instructions ??? Do not use any products that contain nicotine or tobacco for at least 4 weeks before the procedure. These products include cigarettes, chewing tobacco, and vaping devices, such as e-cigarettes. If you need help quitting, ask your provider. ??? If you will be going home right after the procedure, plan to have a responsible adult: ? Take you home from the hospital. You will not be allowed to drive. ? Care for you for the time you are told. What happens during the procedure? An IV will be inserted into one of your veins. ??? You may be given: ? A sedative. This helps you relax. ? Anesthesia. This keeps you from feeling pain. It will make you fall asleep for surgery. ??? Small incisions or a puncture will be made on one or both sides of your groin. ??? Soft tubes (catheters) will be passed through the incisions. They will be moved up into the aneurysm in the aorta. ??? With the help of X-ray pictures, your provider will guide the graft through the catheter to the aneurysm. ??? The graft will be released to seal off the aneurysm and line the aorta. It will stay in place. It will not be taken out. ??? X-rays will be used to make sure that the graft is correctly placed. ??? The catheter will be taken out. ??? The incision may be closed with stitches (sutures), skin glue, or tape strips. It may be covered with a bandage (dressing). The procedure may vary among providers and hospitals. What happens after the procedure? Your blood pressure, heart rate, breathing rate, and blood oxygen level will be monitored until you leave the hospital or clinic. ??? You may be given pain medicine as needed. ??? You will lie flat for a number of hours, without bending your legs. ??? When told, you should get up and move around a number of times each day. Slowly become more active. ??? Imaging tests may be done. These will check that the endograft was put in the right spot and that it is working like it should. ??? Wear compression stockings as told by your provider. These stockings help to prevent blood clots and reduce swelling in your legs. This information is not intended to replace advice given to you by your health care provider. Make sure you discuss any questions you have with your health care provider. Document Revised: 03/25/2023 Document Reviewed: 03/25/2023 [employer] Patient Education ? 2023 [employer] Medication Leaflets: You may receive a survey from Elva [facility] asking you to rate your care experience. Your feedback is important and will help us understand what we do well and how we can improve the quality of care we provide to you, your loved ones and our community. It???s an honor to serve you. Thank you for choosing [facility] DISCHARGE SUMMARY Observed: 01/04/2025 10:43 AM Status: F Source: [facility] Discharge Summary Admission and Discharge Information Admit Date/Time:01/03/2025 10:11 Admitting Physician - April Thompson MD Referring Physician - April Thompson MD Admitting Diagnoses: Discharge Order Date Discharge Patient - Ordered -- 01/04/25 10:42:00 EDT Discharge Diagnoses 1. AAA (abdominal aortic aneurysm), 01/03/2025 2. Hyperlipidemia, 01/03/2025 Procedure History Aortic endovascular stent graft (01/03/2025), None. Hospital Course 64-year-old male with past medical history of abdominal aortic aneurysm 6.6 cm, HLD, tobacco abuse quit 6 months ago used to smoke 2 packs a day for 20 years, had EVAR procedure 01/03. Surgery went well. No complications. Minimal blood loss. Patient was observed in ICU overnight without any adverse effects or events. Patient's blood pressure was normotensive throughout stay. Patient will require 1 extra dose of hydralazine. Patient denied any pain, nausea vomiting, fever chills, dressings were clean dry and intact. Partida was removed and patient was able to pee. Patient very eager to be discharged. I did let Dr. Thompson know and okay for discharge. Patient will follow-up with vascular surgery in 2 to 4 weeks. Patient will need repeat CTA with runoffs prior to seeing Dr. Thompson. Discussed diagnosis and treatment plan with patient who agree and accept plan of treatment. Patient stable at discharge Aspirin daily Follow-up with Dr. Thompson 2 to 4 weeks with CTA with runoff prior. Discharge time 33 minutes which included extensive conversation with patient about diagnosis and treatment plan. Along with communication with consultants, nursing, case management. Physical Exam Vitals & Measurements T: 36.8 ???C(Oral) TMIN: 36.3 ???C(Temporal Artery) TMAX: 36.8 ???C(Oral) HR: 84(Monitored) RR: 14 BP: 129/69 BP: 142/62(Line) SpO2: 97% General: NAD, laying flat, SBP 160s Skin: Warm, dry, surgical site clean dry and intact Head: No trauma, normocephalic Neck: Trachea midline, supple, negative for JVD Eye: Conjunctive are clear, clear sclera , EOMI ENMT: oral mucosa moist, no lesions or edema nose or external ears Cardiovascular: Regular rate and rhythm, S1-S2 present, negative for murmurs rubs or gallops Respiratory: Lungs clear to auscultation, bilateral symmetric movement, negative for wheezes rales or rhonchi Chest wall: no deformity. Gastrointestinal: Abdomen soft, bowel sounds present, nontender to palpation Back: No tenderness Extremities: Range of motion intact, no edema Neurological: awake, alert, speech normal, cranial nerves II through XII intact, no sensory defects, alert and oriented x3 Psychiatric: cooperative, affect appropriate for age, pleasant Tests Performed CV Peripheralvascular -- Results Pending -- Please visit your patient portal for your results or contact your primary care physician. Discharge Plan Discharge Disposition Discharge To, Anticipated II - Home with responsible caregiver Discharge Medication List Prescriptions No active prescription medications Home Aspirin Low Dose 81 mg oral tablet, 1 tab, Oral, Daily rosuvastatin 10 mg Tab, 10 mg= 1 tab(s), Oral, Daily Follow-up With When Contact Information Jay DEVINE, April Barboza Within 2 to 4 weeks [address] [place] [address]- Additional Instructions: Call for followup appointment and will need CTA run off prior to appt PRISCILA ODOM Within 7 to [address] [place] [address] [facility] (1) Additional Instructions: Call for followup appointment Call physician if symptoms worsen Patient Education Abdominal Aortic Aneurysm Endograft Repair, Care After Abdominal Aortic Aneurysm Endograft Repair Result Comment: Electronical ly Signed By: Montrell Flaherty DO\Date and Time Signed: 01/04/25 10:43 EDT INTERDISCIPLINARY NOTE - ADARSH E TILE DECORATOR Observed: 01/04/2025 9:47 AM Status: F Source: [facility] Interdisciplinary Note - Adarsh e Mechanical Design Engineer Facilities Patient is awake and alert in bed, previously rounded with Vascular. Patient is aware of plan to DC home today and family will transport. Pt declines any concerns or DC needs. Pt is independent at home. CRM following. . PCP verified and insurance information reviewed and DME discussed. Contact information provided and white board updated. Result Comment: Electronical ly Signed By: Johanne Aguayo RN\prince\Date and Time Signed: 01/04/25 09:48 EDT EGFR Collected: 5:47 AM Status: F Source: [facility] TYPE CODE TESTS RESULT OUT OF RANGE REFERENCE UNITS LAB [id number]([facility]) eGFR 114 Normal >=59 mL/min/1 .7 3 m2 Performed By: #### [id number] #### [facility] [address] [place] [address] MAGNESIUM Collected: 01/04/2025 5:47 AM Status: F Source: [facility] TYPE CODE TESTS RESULT OUT OF RANGE REFERENCE UNITS LAB 73696-1([facility]) MAGNESIUM:MCN C:PT:SER/PLAS :QN: 2.1 Normal 1.3-2.4 mg/dL Performed By: #### [id number] # ### [facility] [address] [place] [address] PHOSPHORUS Collected: 01/04/2025 5:47 AM Status: F Source: [facility] TYPE CODE TESTS RESULT OUT OF RANGE REFERENCE UNITS LAB 66024-2([facility]) PHOSPHATE:MCN C:PT:SER/PLAS :QN: 3.9 Normal 1.9-4.6 mg/dL Performed By: #### [id number] # ### [facility] [address] [place] [address] CBC W/INDICES Collected: 01/04/2025 5:47 AM Status: F Source: [facility] TYPE CODE TESTS RESULT OUT OF RANGE REFERENCE UNITS LAB 03286-6([facility]) LEUKOCYTES^^COR RECTED FOR NUCLEATED ERYTHROCYTES:NC NC:PT:BLD:QN:AU TOMATED COUNT 9.8 Normal 4.0-11.0 E9/L LAB 789-8([facility]) ERYTHROCYTES:NC NC:PT:BLD:QN:AU TOMATED COUNT 4.7 Normal 4.3-5.9 E12/L LAB 718-7([facility]) HEMOGLOBIN:MCNC :PT:BLD:QN: 13.7 Normal 13.5-17.5 gm/dL LAB 4544-3([facility]) ERYTHROCYTE/BLO OD:VFR:PT:BLD:Q N:AUTOMATED COUNT 41.9 Normal 37.7-49.0 % LAB 788-0([facility]) OBSERVATION:DIS TWIDTH:PT:RBC:Q N:AUTOMATED COUNT 14.3 High 10.9-14.2 % LAB 785-6([facility]) HEMOGLOBIN:ENTM ASS:PT:RBC:QN:A UTOMATED COUNT 28.9 Normal 27.0-34.0 pg LAB 786-4([facility]) HEMOGLOBIN:ENTM CNC:PT:RBC:QN:A UTOMATED COUNT 32.7 Normal 31.4-36.0 gm/dL LAB 787-2([facility]) OBSERVATION:ENT MEANVOL:PT:RBC: QN:AUTOMATED COUNT 88.4 Normal 80.0-100.0 fL LAB 54958-6([facility]) PLATELET:ENTMEA NVOL:PT:BLD:QN: AUTOMATED COUNT 7.4 Normal 6.4-10.8 fL LAB [id number]([facility]) Platelet 163.0 Normal 150.0-500.0 E9/ L LAB 38406-8([facility]) ERYTHROCYTE SIZE:MORPH:PT:B LD:NOM: NORMAL Unknown Performed By: #### [id number] # ### [facility] [address] [place] [address] [facility] Collected: 5 5:47 AM Status: F Source: [facility] TYPE CODE TESTS RESULT OUT OF RANGE REFERENCE UNITS LAB 2345-7([facility]) GLUCOSE:MCNC :PT:SER/PLAS :QN: 102 Normal 55-199 mg/dL LAB 3094-0([facility]) UREA NITROGEN:MCN C:PT:SER/PILAR S:QN: 14 Normal 5-21 mg/dL LAB 2160-0([facility]) CREATININE:M CNC:PT:SER/P LAS:QN: 0.5 Normal 0.5-1.3 mg/dL LAB 3097-3([facility]) UREA NITROGEN/CRE ATININE:MRTO :PT:SER/PLAS :QN: 28 High 10-20 No Units LAB 47297-5([facility]) CALCIUM:MCNC :PT:SER/PLAS :QN: 8.7 Low 8.9-11.1 mg/dL LAB 2951-2([facility]) SODIUM:SCNC: PT:SER/PLAS: QN: 134 Low 135-145 mmol/L LAB 2823-3([facility]) POTASSIUM:SC NC:PT:SER/PL :QN: 3.7 Normal 3.5-5.3 mmol/L LAB 2074-0([facility]) CHLORIDE:SCN C:PT:SER/PILAR S:QN: 107 Normal 101-111 mmol/L LAB 2027-([facility]) CARBON DIOXIDE:SCNC :PT:SER/PLAS :QN: 21 Normal 21-31 mmol/L LAB 50690-1([facility]) ANION GAP:SCNC:PT: SER/PLAS:QN: CALCULATED 10 Normal 6-16 mEq/L Performed By: #### [id number] # ### [facility] [address] [place] [address] PROGRESS NOTE-PHYSICIAN Observed: 2024 8:04 PM Status: F Source: [facility] Progress Note-Physician Patient: IRMA RAMÍREZ Age: 64 years Sex: Male : 1960 Associated Diagnoses: None Author: Parth Sparks Jr, DO Postoperative Information Postoperative disposition: Postoperative disposition: To PACU. Optimetrix number: Optimetrix number [phone]. Anesthetic utilized: General. Health Status Allergies: Allergic Reactions (Selected) No Known Allergies Physical Examination Vital Signs 01/03/2025 18:15 EDT Hourly Rounding Yes Promise to Return Yes 01/03/2025 18:00 EDT Heart Rate Monitored 66 bpm 01/03/2025 18:00 EDT Systolic Blood Pressure Invasive 146 mmHg HI Diastolic Blood Pressure Invasive 66 mmHg Mean Arterial Pressure, Invasive 95 mmHg 01/03/2025 18:00 EDT Respiratory Rate Monitored 18 br/min 01/03/2025 18:00 EDT Systolic Blood Pressure 125 mmHg Diastolic Blood Pressure 73 mmHg Mean Arterial Pressure, Cuff 90 mmHg 01/03/2025 17:00 EDT Systolic Blood Pressure Invasive 154 mmHg HI Diastolic Blood Pressure Invasive 72 mmHg Mean Arterial Pressure, Invasive 102 mmHg 01/03/2025 17:00 EDT Respiratory Rate Monitored 17 br/min 01/03/2025 17:00 EDT Heart Rate Monitored 71 bpm 01/03/2025 17:00 EDT Systolic Blood Pressure 133 mmHg Diastolic Blood Pressure 73 mmHg Mean Arterial Pressure, Cuff 93 mmHg Hourly Rounding Yes Promise to Return Yes 01/03/2025 16:00 EDT Systolic Blood Pressure Invasive 151 mmHg HI Diastolic Blood Pressure Invasive 68 mmHg Mean Arterial Pressure, Invasive 97 mmHg 01/03/2025 16:00 EDT Heart Rate Monitored 70 bpm 01/03/2025 16:00 EDT Respiratory Rate Monitored 9 br/min 01/03/2025 16:00 EDT Systolic Blood Pressure 130 mmHg Diastolic Blood Pressure 60 mmHg Mean Arterial Pressure, Cuff 83 mmHg Hourly Rounding Yes Promise to Return Yes 01/03/2025 15:35 EDT SpO2 100 % 01/03/2025 15:30 EDT Heart Rate Monitored 77 bpm Respiratory Rate Monitored 14 br/min Systolic Blood Pressure 133 mmHg Diastolic Blood Pressure 70 mmHg Mean Arterial Pressure, Cuff 93 mmHg Systolic Blood Pressure Invasive 164 mmHg HI Diastolic Blood Pressure Invasive 76 mmHg Mean Arterial Pressure, Invasive 109 mmHg 01/03/2025 15:00 EDT Heart Rate Monitored 72 bpm Respiratory Rate Monitored 7 br/min Systolic Blood Pressure 147 mmHg HI Diastolic Blood Pressure 82 mmHg Mean Arterial Pressure, Cuff 99 mmHg Systolic Blood Pressure Invasive 170 mmHg HI Diastolic Blood Pressure Invasive 84 mmHg Mean Arterial Pressure, Invasive 119 mmHg Hourly Rounding Yes Promise to Return Yes 01/03/2025 14:45 EDT Heart Rate Monitored 72 bpm Respiratory Rate Monitored 14 br/min Systolic Blood Pressure 142 mmHg HI Diastolic Blood Pressure 79 mmHg Mean Arterial Pressure, Cuff 97 mmHg Systolic Blood Pressure Invasive 173 mmHg HI Diastolic Blood Pressure Invasive 80 mmHg Mean Arterial Pressure, Invasive 115 mmHg 01/03/2025 14:30 EDT Systolic Blood Pressure Invasive 166 mmHg HI Diastolic Blood Pressure Invasive 82 mmHg Mean Arterial Pressure, Invasive 110 mmHg 01/03/2025 14:24 EDT SpO2 97 % 01/03/2025 14:20 EDT SpO2 97 % 01/03/2025 14:20 EDT Heart Rate Monitored 70 bpm 01/03/2025 14:20 EDT Systolic Blood Pressure Invasive 150 mmHg HI Diastolic Blood Pressure Invasive 70 mmHg Mean Arterial Pressure, Invasive 98 mmHg 01/03/2025 14:20 EDT Respiratory Rate Monitored 15 br/min 01/03/2025 14:20 EDT Temperature Temporal Artery 36.4 DegC Systolic Blood Pressure 140 mmHg HI Diastolic Blood Pressure 79 mmHg Mean Arterial Pressure, Cuff 99 mmHg Mean Arterial Pressure, Cuff 109 mmHg Pain Assessment: Controlled. General: Awake, Alert, Appropriate. Respiratory: Adequate air exchange. Cardiovascular: Stable, Normal peripheral perfusion. Neurological: Normal sensory function, Normal motor function. Assessment Anesthetic outcome No anesthetic complications noted. Adequate pain relief. able to void without difficulty, able to ambulate with assist, tolerating PO intake, no N/V. Review / Management Condition: Stable. Plan Transfer/Discharge: Transfer/Discharge Discharge when meets criteria ( From PACU to ICU ). Result Comment: Electronical ly Signed By: Parth Sparks Jr, DO\Date and Time Signed: 01/03/25 20:07 EDT PATIENT EDUCATION - TEXT Observed: 01/03 3:55 PM Status: C Source: [facility] Patient Education - Text INPATIENT PATIENT SUMMARY Observed: 12/2024 3:55 PM Status: F Source: [facility] Inpatient Patient Summary [address] [address] Patient Discharge Instructions PERSON INFORMATION Name: CRISTELA RAMÍREZIP Date of : 1960 Current Date: 01/03/2025 15:55:03 PHYSICIANS Admitting Physician: Jay DEVINE, April Barboza Primary Care Physician: PRISCILA ODOM DO PCP Comment: Discharge Diagnosis: 2:Hyperlipidemia Condition at Discharge: IRMA RAMÍREZ has been given the following list of follow-up instructions, prescriptions, and patient education materials: PATIENT FOLLOW-UP INFORMATION Diet: Discharge Activity: Discharge Restrictions: Wound Care Instructions: Remove Your Dressing In Days Call Your Doctor For: IF UNABLE TO CONTACT YOUR PHYSICIAN AND YOU FEEL IT IS AN EMERGENCY, GO TO THE NEAREST EMERGENCY ROOM OR CALL 911 Home Treatment: Devices/Equipment: Special Services: Additional Instructions: Primary Care Physician to provide the following pending test results: Follow up: With: Address: When: PRISCILA ODOM [facility] [address] [place], [place] [id number] Business (1) Within 7 to 10 days Comments: Call for followup appointment Call physician if symptoms worsen In the event that this physician does not participate in your insurance network, please consult with your insurance company to find a nearby participating provider. Comment: DARRELL Mcallister PHILLIP, have received the attached patient education materials/instructions and have verbalized understanding: Patient Signature Date Clinican/Nurse Signature Date HERE ARE THE MEDICATION CHANGES THAT OCCURRED DURING YOUR HOSPITAL STAY Medications to Continue with No Changes Other Medications aspirin (Aspirin Low Dose 81 mg oral tablet) 1 tab By Mouth every day. Last Dose: Next Dose: rosuvastatin (rosuvastatin 10 mg Tab) 1 Tablets By Mouth every day. Last Dose: Next Dose: Comment: MEDICATION LIST PROVIDED FOR YOU IS A LIST OF YOUR CURRENT MEDICATIONS. PLEASE CARRY THIS WITH YOU AT ALL TIMES. aspirin (Aspirin Low Dose 81 mg oral tablet) 1 tab By Mouth every day. rosuvastatin (rosuvastatin 10 mg Tab) 1 Tablets By Mouth every day. Pharmacy Information: Comment: PATIENT EDUCATION INFORMATION Instructions: Medication Leaflets: You may receive a survey from Elva Avila asking you to rate your care experience. Your feedback is important and will help us understand what we do well and how we can improve the quality of care we provide to you, your loved ones and our community. It???s an honor to serve you. Thank you for choosing [facility] INPATIENT CLINICAL SUMMARY Observed: 12/2024 3:55 PM Status: F Source: [facility] Inpatient Clinical Summary [place] [id number] Clinical Summary Person Information: Name: IRMA RAMÍREZ Age: 64 Years : 1960 Sex: Male PCP: PRISCILA ODOM DO Marital Status: Single Race: White Ethnicity: or Language: Zambian Visit Id: Visit Reason: I71.40 Speciality: Acuity: Enc Type: Inpatient Med Service: Medical Arrival: 01/03/2025 09:57:29 Discharge: Dispo Type: Address: [address] [place] [id number] Provider Notes: Diagnosis: 2:Hyperlipidemia Problems Active BMI 25.0-25.9,adult Screening for malignant neoplasm of colon BPH with obstruction/lower urinary tract symptoms Smoker Hyperlipidemia AAA (abdominal aortic aneurysm) Elevated PSA Depression Smoking Status: Former Smoker Functional Status: Sensory Deficits: History of Falls: Mobility Assistance Prior to Admission: ADLs: Independent Current Level of Assistance for Self-Care/Mobility: Cognitive Status: Allergies No Known Allergies Measurements: Height: 180 cm Weight: 108 kg Blood Pressure: 133 mmHg / 70 mmHg BMI: 33.33 kg/m2 Procedures Aortic endovascular stent graft (01/03/2025) Immunizations No Immunizations Documented This Visit Final Med List: aspirin (Aspirin Low Dose 81 mg oral tablet) 1 tab By Mouth every day. rosuvastatin (rosuvastatin 10 mg Tab) 1 Tablets By Mouth every day. Care Team Members: Attending Physician: April Thompson MD Consulting Physician: Referring Physician: April Thompson MD Follow up: With: Address: [facility]: PRISCILA BLAYNECHENG [address] [place] [phone] Business (1) Within 7 to 10 days Comments: Call for followup appointment Call physician if symptoms worsen Patient Education Information: HISTORY AND PHYSICAL Observed: 3:40 PM Status: F Source: [facility] History and Physical Basic Information Admit Date/Time:01/03/2025 10:11 History of Present Illness 64-year-old male with past medical history of abdominal aortic aneurysm 6.6 cm, HLD, tobacco abuse quit 6 months ago used to smoke 2 packs a day for 20 years, is postop day #0 status post EVAR. Patient currently in ICU. Patient denies any pain. Blood pressure is elevated with systolics in the 160s. Patient denies any chest pain, nausea vomiting diarrhea, pain at sites or other symptoms at this time. 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 Discussed CODE STATUS with patient would like to be full code. Review of Systems Scoring Modi Fall Risk Score: 0 (01/03/25) Physical Exam Vitals & Measurements T: 36.6 ???C(Oral) SpO2: 100% HT: 180 cm HT: 180 cm WT: 108 kg General: NAD, laying flat, SBP 160s Skin: Warm, dry, surgical site clean dry and intact Head: No trauma, normocephalic Neck: Trachea midline, supple, negative for JVD Eye: Conjunctive are clear, clear sclera , EOMI ENMT: oral mucosa moist, no lesions or edema nose or external ears Cardiovascular: Regular rate and rhythm, S1-S2 present, negative for murmurs rubs or gallops Respiratory: Lungs clear to auscultation, bilateral symmetric movement, negative for wheezes rales or rhonchi Chest wall: no deformity. Gastrointestinal: Abdomen soft, bowel sounds present, nontender to palpation Back: No tenderness Extremities: Range of motion intact, no edema Neurological: awake, alert, speech normal, cranial nerves II through XII intact, no sensory defects, alert and oriented x3 Psychiatric: cooperative, affect appropriate for age, pleasant Lab Results UA Spec Desc: Catheter (01/03/25 12:30:00) UA Color: Yellow (01/03/25 12:30:00) UA Clarity: Clear (01/03/25 12:30:00) UA Spec Grav: 1.029 (01/03/25 12:30:00) UA pH: 5.5 (01/03/25 12:30:00) UA Protein: Negat (01/03/25 12:30:00) UA Glucose: Negat (01/03/25 12:30:00) UA Ketones: Negat (01/03/25 12:30:00) UA Bili: Negat (01/03/25 12:30:00) UA Blood: Negat (01/03/25 12:30:00) UA Nitrite: Negat (01/03/25 12:30:00) UA Urobilinogen: Negat (01/03/25 12:30:00) UA Leuk Est: Negat (01/03/25 12:30:00) ABO/Rh: O POS (01/03/25 10:20:00) ABSC Gel Interp: Negative (01/03/25 10:20:00) Assessment/Plan Patient will be admitted under inpatient status due to estimated length of stay greater than 2 midnights. All images, labs, EKGs were reviewed DVT PPx???PAS bilaterally, no chemical anticoagulation Diet???regular CODE STATUS???full code 1. AAA (abdominal aortic aneurysm) (I71.40: Abdominal aortic aneurysm, without rupture, unspecified) Status post EVAR 5/5 Strict blood pressure monitoring keep normotensive As needed hydralazine, as needed labetalol Vascular checks as per vascular surgeon No chemical anticoagulation Begin aspirin 5/6 Monitor in ICU Ordered: Initial Hospital Care/Day Moderate 55 Minutes [address]3700 2. Hyperlipidemia (E78.5: Hyperlipidemia, unspecified) Statin Orders: acetaminophen, 650 mg = 2 tab(s), Tab, Oral, q6hr PRN Pain, Routine, Start date 01/03/25 15:38:00 EDT, 01/03/25 15:38:00 EDT Al hydroxide/Mg hydroxide/simethicone, 30 mL, Susp-Oral, Oral, q6hr PRN Indigestion, Routine, Start date 01/03/25 15:38:00 EDT aspirin, 81 mg = 1 tab(s), Tab-EC, Oral, Daily, NOW, Start date 01/03/25 15:38:00 EDT atorvastatin, 20 mg = 1 tab(s), Tab, Oral, Daily, NOW, Start date 01/03/25 15:38:00 EDT hydrALAZINE, 10 mg = 0.5 mL, Injection, IV Push, q6hr PRN Other (see comment), Routine, Start date 01/03/25 15:38:00 EDT, 01/03/25 15:38:00 EDT hydrALAZINE, 10 mg = 0.5 mL, Injection, IV Push, Once, Stop date 01/03/25 15:05:00 EDT, Start date 01/03/25 15:05:00 EDT magnesium hydroxide, 30 mL, Susp-Oral, Oral, q6hr PRN Constipation, Routine, Start date 01/03/25 15:38:00 EDT morphine, 2 mg = 1 mL, Injection, IV Push, q4hr PRN Pain for 5 day(s), Stop date 01/08/25 15:37:00 EDT, Routine, Start date 01/03/25 15:38:00 EDT, 01/03/25 15:38:00 EDT ondansetron, 4 mg = 2 mL, Injection, IV Push, q6hr PRN Nausea, Routine, Start date 01/03/25 15:38:00 EDT, 01/03/25 15:38:00 EDT senna, 17.2 mg = 2 tab(s), Tab, Oral, BID PRN Other (see comment), Routine, Start date 01/03/25 15:38:00 EDT, 01/03/25 15:38:00 EDT sodium biphosphate-sodium phosphate, 133 mL, Enema, Rectal, Once PRN Constipation, Routine, Start date 01/03/25 15:38:00 EDT Basic Metabolic Panel Below the Knee Intermittent Pneumatic Compression Device CBC w/ Auto Diff Intake and Output Notify Provider Vital Signs Regular Diet Resuscitation Status - Full Problem List/Past Medical History Ongoing AAA (abdominal aortic aneurysm) BMI 25.0-25.9,adult BPH with obstruction/lower urinary tract symptoms Depression Elevated PSA Hyperlipidemia Screening for malignant neoplasm of colon Smoker Historical No qualifying data Procedure/Surgical History Aortic endovascular stent graft (01/03/2025), None. Medications Inpatient acetaminophen 325 mg Tab, 650 mg= 2 tab(s), Oral, q6hr, PRN Al hydroxide/Mg hydroxide/simethicone 200 mg-200 mg-20 mg/5 mL oral suspension, 30 mL, Oral, q6hr, PRN aspirin 81 mg Oral EC Tab, 81 mg= 1 tab(s), Oral, Daily atorvastatin 20 mg Tab, 20 mg= 1 tab(s), Oral, Daily atropine 1 mg/mL Inj, 1 mg= 1 mL, IV Push, Once, PRN cefazolin additive + Sodium Chloride 0.9% intravenous solution 50 mL fentanyl 50 mcg/mL injectable solution, 100 mcg= 2 mL, IV, q2min, PRN Fleet Enema, 133 mL, Rectal, Once, PRN flumazenil 0.1 mg/mL IV Ximena, 0.1 mg= 1 mL, IV, Once, PRN heparin 1000 units/500 ml-NaCL 0.9% Soln, 1000 unit(s)= 500 mL, Misc, Once, PRN heparin 1000 units/500 ml-NaCL 0.9% Soln, 1000 unit(s)= 500 mL, Misc, Once, PRN heparin 1000 units/500 ml-NaCL 0.9% Soln, 1000 unit(s)= 500 mL, Misc, Once, PRN heparin 1000 units/mL injectable solution, 71239 unit(s)= 10 mL, IV Push, q5min, PRN hydrALAZINE 20 mg/mL Inj, 10 mg= 0.5 mL, IV Push, q5min, PRN hydrALAZINE 20 mg/mL Inj, 10 mg= 0.5 mL, IV Push, q6hr, PRN HYDROmorphone 1 mg/mL injectable solution, 0.4 mg= 0.4 mL, IV Push, q4min, PRN Isovue-300 61% injectable solution 100 mL, 100 mL, IV Push, q15min, PRN Isovue-300 61% injectable solution 50 mL, 50 mL, IV Push, q15min, PRN lidocaine 1% Inj 10 mL, 100 mg= 10 mL, SubCutaneous, q5min, PRN magnesium additive + Dextrose 5% in Water intravenous solution 100 mL magnesium additive + premix generic diluent 50 mL metoprolol 1 mg/mL Inj, 5 mg= 5 mL, IV Push, q5min, PRN midazolam 1 mg/mL preservative-free Inj 2 mL, 2 mg= 2 mL, IV, q2min, PRN Milk of Magnesia 8% Susp-Oral, 30 mL, Oral, q6hr, PRN morphine 2 mg/mL Inj, 2 mg= 1 mL, IV Push, q4hr, PRN naloxone 1 mg/mL Soln, 2 mg= 2 mL, IV Push, Once, PRN nitroglycerin 2% Top Oint, 1 in, Topical, Once, PRN potassium chloride additive + premix generic diluent 100 mL potassium chloride additive + premix generic diluent 100 mL promethazine additive 12.5 mg + Sodium Chloride 0.9% IV Ximena 50 mL (INT) 50 mL Protamine 10 mg/mL Injection, 50 mg= 5 mL, IV Push, q2min, PRN Senokot 8.6 mg Tab, 17.2 mg= 2 tab(s), Oral, BID, PRN Sodium Chloride 0.9% IV Ximena 1000 mL 1,000 mL, 1000 mL, IV Zofran 4 mg/2 mL Injection, 4 mg= 2 mL, IV Push, q6hr, PRN Home Aspirin Low Dose 81 mg oral tablet, 1 tab, Oral, Daily rosuvastatin 10 mg Tab, 10 mg= 1 tab(s), Oral, Daily Allergies No Known Allergies Social History Alcohol - Denies Alcohol Use, 08/01/2023 Never., 12/31/2024 Substance Abuse - Denies Substance Abuse, 08/01/2023 Never., 12/31/2024 Tobacco Former smoker, quit more than 30 days ago Tobacco Use:., 12/31/2024 Family History Arthritis: Father. Breast cancer: Mother. Cancer: Father. High cholesterol: Mother. Hypertension: Mother. Stroke: Father. Immunizations Vaccine Date Status Comments influenza virus vaccine, inactivated - Not Given Patient Refuses SARS-CoV-2 mRNA (tozinameran 5y-11y) vac - Not Given Patient Refuses Result Comment: Electronical ly Signed By: Montrell Flaherty DO.br\Date and Time Signed: 01/03/25 15:41 EDT OPERATIVE REPORT Observed: 01/03/2025 2:22 PM Status: F Source: [facility] Operative Report SURGERY DATE: 01/03/2025 PREOPERATIVE DIAGNOSIS: Infrarenal abdominal aortic aneurysm POSTOPERATIVE DIAGNOSIS: Infrarenal abdominal aortic aneurysm OPERATION: 1. Ultrasound-guided percutaneous access and closure of bilateral femoral arteries 2. Placement of aortobiiliac endograft for repair of infrarenal abdominal aortic aneurysm ANESTHESIA: General anesthesia INDICATION: This is a pleasant 64-year-old gentleman who was found to have an infrarenal abdominal aortic aneurysm. Different treatment options were discussed. Informed consent was obtained. The patient was taken back to the Catheterization Laboratory for repair. PROCEDURE: The patient was taken back to the Catheterization Laboratory and placed in supine position. Appropriate cardiopulmonary monitors were set. He had a . General anesthesia was induced. He received antibiotics. Abdomen, chest, and groins were prepped and draped in the usual surgical sterile fashion. After time-out and safety pause, under ultrasound guidance both groins were accessed using Seldinger maneuver. The common femoral artery was accessed in the right. Access failed in the left because the patient has high bifurcation. Two ProGlides were placed in each artery. Catheter was placed in the infrarenal abdominal aorta main body from the right side. Aortogram was done of main body. Medtronic Endurant device 25 x 14 x 103 was deployed just below the renal arteries. The contralateral gate was cannulated from the left side. A 16 x 10 x 124 iliac limb extension was placed followed by 16 x 10 x 93 on the right side. The device was ironed using a Reliant balloon. Completion angiogram showed successful exclusion of the aneurysms. There is a type 4 endoleak, but there is no type 1, 3, or 2 endoleak that was identified. Heparin was given early on in the case. It was reversed at the end of the case with protamine. Access site was closed using ProGlides. The patient tolerated the procedure very well. No complications. All counts were correct. He was extubated and sent to the Postanesthesia Care Unit in good condition. April Thompson M.D. ca Dictated: 01/03/2025 [id number] Transcribed: 01/03/2025 Result Comment: Electronical ly Signed By: April Thompson MD\.br\Date and Time Signed: 01/10/25 10:53 EDT MAIN OR PACU I RECORD Observed: 01/04/20 12:00 PM Status: F Source: [facility] Main OR PACU I Record PACU Phase I Document Type FT Summary Primary Physician: April Thompson MD Finalized Date/Time: 01/03/25 15:53:23 Pt. Name: IRMA RAMÍREZ/Sex: 1960 Male Med Rec #: [id number] Physician: April Thompson MD Financial #: [id number] Pt. Type: P Room/Bed: / Admit/Disch: - Institution: Case Times PACU I FT Pre-Care Text: Identifies barriers to communication and implements measures to provide psychological support Develops individualized plan of care, and ensures continuity of care Maintains patient's dignity and privacy, and maintains patient confidentiality Identifies and reports philosophical, cultural, and spiritual beliefs and values Identifies individual values and wishes concerning care Implements aseptic technique, and administers prescribed antibiotic therapy and immunizing agents as ordered Evaluates postoperative tissue perfusion Implements thermoregulation measures, and monitors body temperature Evaluates postoperative respiratory status Evaluates postoperative cardiac status Evaluates postoperative neurological status Assesses pain control, collaborated in initiating patient-controlled analgesia and implements alternative methods of pain control Verifies allergies, administers prescribed medications and solutions, evaluates response to medications Entry 1 In PACU I 01/03/25 13:55:00 Discharge from PACU 01/03/25 14:25:00 I Outcomes Met? Yes Last Modified By: Beronica Anthony I 01/03/25 15:53:00 Post-Care Text: The patient demonstrates knowledge of the expected response to the operative or invasive procedure The patient's care is consistent with the individualized perioperative plan of care The patient's right to privacy is maintained The patient's value system, lifestyle, ethnicity, and culture are considered, respected, and incorporated into the perioperative plan of care The patient participates in decisions affecting his or her perioperative plan of care The patient is free from signs and symptoms of infection The patient has wound/tissue perfusion consistent with or improved from baseline levels established preoperatively The patient is at or returning to normothermia at the conclusion of the immediate postoperative period The patient's respiratory function is consistent with or improved from baseline levels established preoperatively The patient's cardiovascular status is consistent with or improved from baseline levels established preoperatively The patient's cardiovascular status is consistent with or improved from baseline levels established preoperatively The patient demonstrates and/or reports adequate pain control throughout the perioperative period The patient received appropriate medication(s), safely administered during the perioperative period Acuity Level PACU I FT Entry 1 Start Time 01/03/25 13:55:00 Stop Time 01/03/25 14:25:00 Acuity Level Acuity Level I Last Modified By: Beronica Anthony I 01/03/25 15:53:18 Finalized By: Beronica Anthony I Document Signatures Signed By: Beronica Anthony I 01/03/25 15:53 ABO/RH Collected: 10:20 AM Status: F Source: [facility] TYPE CODE TESTS RESULT OUT OF RANGE REFERENCE UNITS LAB 55995728(LOINC) ABO/Rh O POS Unknown Performed By: #### [id number] # ### [facility] [address] [place] [address] BLOOD BANK ID# Collected: 10:20 AM Status: F Source: [facility] TYPE CODE TESTS RESULT OUT OF RANGE REFERENCE UNITS LAB 02543027(LOINC) BBID# [id number] Unknown Performed By: #### [id number] #### [facility] [address] [place] [address] ABSC Collected: 10:20 AM Status: F Source: [facility] TYPE CODE TESTS RESULT OUT OF RANGE REFERENCE UNITS LAB 51150066(LOINC) ABSC Gel Interp Negative Normal Performed By: #### [id number] #### [facility] [address] [place] [address] ABO/RH HISTORY CHECK Collected: 025 10:20 AM Status: F Source: [facility] TYPE CODE TESTS RESULT OUT OF RANGE REFERENCE UNITS LAB 75913541(LOINC) ABO/Rh History Check Verified Hx Blood Type Normal Performed By: #### [id number] #### [facility] [address] [place] [address] PROGRESS NOTE-PHYSICIAN Observed: 2024 7:27 AM Status: F Source: [facility] Progress Note-Physician Patient: IRMA RAMÍREZ Age: 64 years Sex: Male : 1960 Associated Diagnoses: None Author: Parth Sparks Jr, DO Preoperative Information Anesthesia Preop Info: Time patient last ate or drank 01/03/2025 00:00:00. Anesthesia history: Patient history: None. Family history+: None. Informed consent: Signed by patient. Re-evaluation prior to induction: Initial evaluation reviewed: No significant change. Review of Systems Eye: Negative except as documented in history of present illness. Ear/Nose/Mouth/Throat: Negative except as documented in history of present illness. Respiratory: Negative except as documented in history of present illness. Cardiovascular: Negative except as documented in history of present illness. Musculoskeletal: Negative except as documented in history of present illness. Neurologic: Negative except as documented in history of present illness. Health Status Allergies: Allergic Reactions (Selected) No Known Allergies Problem list: All Problems Smoker / SNOMED CT 881119603 / Confirmed Added secondary to documentation in Social History. Elevated PSA / SNOMED CT 3312474913 / Confirmed Screening for malignant neoplasm of colon / SNOMED CT 415476647 / Confirmed BMI 25.0-25.9,adult / SNOMED CT 3006570688 / Confirmed Hyperlipidemia / SNOMED CT 15642930 / Confirmed Depression / SNOMED CT 47218006 / Confirmed BPH with obstruction/lower urinary tract symptoms / SNOMED CT 4654049255 / Confirmed AAA (abdominal aortic aneurysm) / SNOMED CT 944899564 / Confirmed Canceled: Enlarged prostate with urinary obstruction / SNOMED CT 6287821576 Histories Procedure history: None (529401747). Social History Social & Psychosocial Habits Alcohol 12/27/2024 Risk Assessment: Denies Alcohol Use Substance Abuse 12/27/2024 Risk Assessment: Denies Substance Abuse Tobacco 12/31/2024 Tobacco Use: Former smoker, quit more . Physical Examination Airway: Mallampati classification: II (soft palate, fauces, uvula visible). Respiratory: adequate air exchange. Cardiovascular: Regular rhythm. Plan [place] [employer]esthesiologists (ASA) physical status classification: Class III. Anesthetic Preoperative Plan: Anesthesia General, and Patient educated on benefits, alternatives and inherent risk of anesthesia including, but not all inclusive, Allergic reactions, dental damage, nerve damage and cardio-pulmonary complications and wishes to proceed with anesthetic plan.. Result Comment: Electronical ly Signed By: Parth Sparks Jr, DO\prince\Date and Time Signed: 01/03/25 20:07 EDT BMP Collected: 3:52 PM Status: F Source: [facility] TYPE CODE TESTS RESULT OUT OF RANGE REFERENCE UNITS LAB 2349-7([facility]) GLUCOSE:MCNC :PT:SER/PLAS :QN: 92 Normal 55-199 mg/dL LAB 3094-0([facility]) UREA NITROGEN:MCN C:PT:SER/PILAR S:QN: 15 Normal 5-21 mg/dL LAB 2160-0([facility]) CREATININE:M CNC:PT:SER/P LAS:QN: 0.6 Normal 0.5-1.3 mg/dL LAB 3097-3([facility]) UREA NITROGEN/CRE ATININE:MRTO :PT:SER/PLAS :QN: 25 High 10-20 No Units LAB 50314-7([facility]) CALCIUM:MCNC :PT:SER/PLAS :QN: 9.1 Normal 8.9-11.1 mg/dL LAB 2951-2([facility]) SODIUM:SCNC: PT:SER/PLAS: QN: 135 Normal 135-145 mmol/L LAB 2823-3([facility]) POTASSIUM:SC NC:PT:SER/PL :QN: 4.1 Normal 3.5-5.3 mmol/L LAB 2075-0([facility]) CHLORIDE:SCN C:PT:SER/PILAR S:QN: 104 Normal 101-111 mmol/L LAB 2028-9([facility]) CARBON DIOXIDE:SCNC :PT:SER/PLAS :QN: 24 Normal 21-31 mmol/L LAB 98852-9([facility]) ANION GAP:SCNC:PT: SER/PLAS:QN: CALCULATED 11 Normal 6-16 mEq/L Performed By: #### [id number] # ### [facility] [address] [place] [address] CBC W/ AUTO DIFF Collected: 12/27/2024 3:52 PM Statu s: F Source: [facility] TYPE CODE TESTS RESULT OUT OF RANGE REFERENCE UNITS LAB 74441-1([facility]) LEUKOCYTES^^CO RRECTED FOR NUCLEATED ERYTHROCYTES:N CNC:PT:BLD:QN: AUTOMATED COUNT 6.3 Normal 4.0-11.0 E9/L LAB 789-8([facility]) ERYTHROCYTES:N CNC:PT:BLD:QN: AUTOMATED COUNT 5.1 Normal 4.3-5.9 E12/L LAB 718-7([facility]) HEMOGLOBIN:MCN C:PT:BLD:QN: 15.3 Normal 13.5-17.5 gm/dL LAB 4544-3([facility]) ERYTHROCYTE/BL OOD:VFR:PT:BLD :QN:AUTOMATED COUNT 45.3 Normal 37.7-49.0 % LAB 788-0([facility]) OBSERVATION:DI STWIDTH:PT:RBC :QN:AUTOMATED COUNT 14.0 Normal 10.9-14.2 % LAB 785-6([facility]) HEMOGLOBIN:ENT MASS:PT:RBC:QN :AUTOMATED COUNT 30.1 Normal 27.0-34.0 pg LAB 786-4([facility]) HEMOGLOBIN:ENT MCNC:PT:RBC:QN :AUTOMATED COUNT 33.8 Normal 31.4-36.0 gm/dL LAB 787-2([facility]) OBSERVATION:EN TMEANVOL:PT:RB C:QN:AUTOMATED COUNT 88.9 Normal 80.0-100.0 fL LAB 74444-9([facility]) PLATELET:ENTME ANVOL:PT:BLD:Q N:AUTOMATED COUNT 7.9 Normal 6.4-10.8 fL LAB 98794696([facility]) Platelet 199.0 Normal 150.0-500.0 E9/ L LAB 20965-3([facility]) NEUTROPHILS/LE UKOCYTES:NFR:P T:BLD:QN: 56.8 Normal 36.0-75.0 % LAB 731-0([facility]) LYMPHOCYTES:NC NC:PT:BLD:QN:A UTOMATED COUNT 29.3 Normal 14.0-50.0 % LAB 742-7([facility]) MONOCYTES:NCNC :PT:BLD:QN:AUT OMATED COUNT 0.8 Normal 0.2-1.0 E9/L LAB 713-8([facility]) EOSINOPHILS/LE UKOCYTES:NFR:P T:BLD:QN:AUTOM ATED COUNT 1.0 Normal 0.0-8.0 % LAB 704-7([facility]) BASOPHILS:NCNC :PT:BLD:QN:AUT OMATED COUNT 0.5 Normal 0.0-2.0 % LAB 751-8([facility]) NEUTROPHILS:NC NC:PT:BLD:QN:A UTOMATED COUNT 3.6 Normal 2.0-7.5 E9/L LAB 42198-3([facility]) LYMPHOCYTES:NC NC:PT:BLD:QN: 1.8 Normal 1.0-4.0 E9/L LAB 67646-4(LOINC) EOSINOPHILS:NC NC:PT:BLD:QN: 0.1 Normal 0.0-0.5 E9/L LAB 10073-4([facility]) BASOPHILS/LEUK OCYTES:NFR.DF: PT:BLD:QN:AUTO MATED COUNT 0.0 Normal 0.0-0.2 E9/L Performed By: #### [id number] # ### [facility] [address] [place] [address] EGFR Collected: 3:52 PM Status: F Source: [facility] TYPE CODE TESTS RESULT OUT OF RANGE REFERENCE UNITS LAB 70256069([facility]) eGFR 108 Normal >=59 mL/min/1 .7 3 m2 Performed By: #### [id number] #### [facility] [address] [place] [address] ABO/RH RETYPE Collected: 12/27/2024 3:52 PM Status: F Source: [facility] TYPE CODE TESTS RESULT OUT OF RANGE REFERENCE UNITS LAB 58544400([facility]) ABO/Rh Retype Interp O POS Unknown Performed By: #### [id number] #### [facility] [address] [place] [address]75 36 Observed: 12/21/2024 4:49 PM Status: COMPLETED Source: [facility] Regarding stress test and ec ho result from 12/10/2024: MD Mary Gerard MA Stress test is normal. His echo was also overall normal. Therefore the patient can proceed with abdominal aortic aneurysm repair from cardiac point of view with necessary anesthesia. He is considered to be low risk for perioperative cardiac events. Spoke with patient and informed him of message per Dr. Louis. Advised him I will fax clearance to Dr. Thompson's office. Cancelled his apt on Sunday 12/[address] Louis. Told him we'd bring him back in 6 months. Patient verbalized understanding. PROGRESS Observed: 11/29/2024 11:40 AM Status: COMPLETED Source: [facility] Office Cardiology Clinic Note Reason for cardiology [...] and rosuvastatin Other PAD including moderate stenosis of proximal common iliac arteries. No claudication He is on aspirin and atorvastatin Pure hypercholesterolemia, on rosuvastatin Former smoker Plan: Continue aspirin and atorvastatin I will obtain Lexiscan nuclear stress test to evaluate for underlying coronary artery disease and echocardiographic study to evaluate cardiac and valvular function. If both tests are normal we will clear him for abdominal aortic aneurysm repair Patient encouraged to stay away from smoking Continue with aggressive control of hyperlipidemia to a goal of LDL cholesterol 70 or below Follow-up in about 4 weeks or sooner if need Aimee Louis MD,[facility] OFFICE VISIT Observed: 11/29/2024 11:40 AM Status: COMPLETED Source: [facility] [id number] Irma Ramírez V 1960 M Date Provider Department Center 11/29/2024 80303-NZLAHXAIMEE [facility] Family History Problem Relation Age of Onset Breast cancer Mother Lung cancer Father Family Status - Relation Status Age at Mother Father Sister Alive Brother Alive Level of Service:52735 CT OFFICE/OUTPATIENT NEW MODERATE MDM 45 MINUTES Reason for Visit and Comments: Hyperlipidemia [182] CT CTA ABD AORTA W RUNOFF Observed: 10/31 11:41 AM Status: COMPLETED Source: [facility] CT CTA ABD AORTA W RUNOFF CT [...] Hira Mcduffie MD on 11/25/2024 1:10 PM COMPREHENSIVE METABOLIC PANEL Collected : 07/08/2024 10:48 AM Status: COMPLETED Source: [facility] TYPE CODE TESTS RESULT OUT OF RANGE REFERENCE UNITS LAB NA(LOINC) SODIUM 139 134-146 mmol/L LAB K(LOINC) POTASSIUM 4.4 3.5-5.0 mmol/L LAB CL(LOINC) CHLORIDE 105 98-109 mmol/L LAB CO2(LOINC) CARBON DIOXIDE 26 22-32 mmol/L LAB AGAP(LOINC) ANION GAP 8 5-15 mmol/L LAB BUN(LOINC) BLOOD UREA NITROGEN 16 5-27 mg/dL LAB CRET(LOINC) CREATININE 0.68 0.60-1.30 mg/dL Result Comment: METHOD TRACE ABLE TO IDMS STANDARD LAB GLU(LOINC) GLUCOSE 96 65-99 mg/dL LAB CA(LOINC) CALCIUM 9.1 8.5-10.5 mg/dL LAB TP(LOINC) TOTAL PROTEIN 7.6 6.0-8.0 g/dL LAB ALB(LOINC) ALBUMIN 4.3 3.2-5.3 g/dL LAB ALK(LOINC) ALKALINE PHOSPHATASE 59 39-130 U/L LAB AST(LOINC) AST 22 0-41 U/L LAB ALT1(LOINC) ALT 18 0-40 U/L LAB TBIL(LOINC) BILIRUBIN,TOTAL 0.5 0.3-1.2 mg/d L LAB EGFR(LOINC) eGFR (CKD-EPI) NON-RACE DEPENDENT >90 >59 ml/min/1 .73sq.m Result Comment: Reported eGFR is based on the CKD-EPI 2020 equation that does not use a race coefficient. Performed By: #### CMP, 2433 1-1 #### [facility] ([id number]) [address] [place] [address], [address] [place] [address] LIPID PROFILE Collected: 07/08/2024 10:48 AM Status: COMPLETED Source: [facility] TYPE CODE TESTS RESULT OUT OF RANGE REFERENCE UNITS LAB CHOL(LOINC) CHOLESTEROL 148 Low 150-200 mg/dL LAB TRIG(LOINC) TRIGLYCERIDE 113 27-150 mg/dL LAB HDL(LOINC) HDL CHOLESTEROL 35 Low >39 mg/dL Result Comment: HDL <40 mg/dL - High Risk HDL > or = 40mg/dL- Desirable HDL >60 mg/dL - Negative Risk LAB VLDL(LOINC) VERY LOW LIPOPROTEIN 23 0-30 mg/dL LAB LDL(LOINC) LDL (CALC) 90 <130 mg/dL Result Comment: LDL <100 mg/dL - Desirable LDL >160 mg/dL - High Risk LAB CHDL(LOINC) CHOLESTEROL:HDL 4.2 1.0-5.0 Performed By: #### CMP, 2433 1-1 #### [facility] ([id number]) [address] [place] [address], [address] [place] [address] ALLERGIES DATE TYPE / CODE NAME / CODE REACTION SEVERITY SOURCE DR/607209298(SNOMED CT) No Known Allergies [facility]IC/863538255( SNOMED CT) NO KNOWN ALLERGIES [facility] Drug Class/203325822(SNO MED CT) NO KNOWN ALLERGIES [facility] ENCOUNTERS ADMIT/DISCHARGE ACCOUNT NUMBER ADMITTING ENCOUNTER CLASS LOCATION SOURCE 01/13/2025/01/14/20 [id number] [address] [place] [address] Ambulatory PPG 01/03/2025/01/05/20 [id number] April Thompson Inpatient Encounter FTMCBuildin g:ICRoom: EW16Mtz: 01 [facility] 01/03/2025 [id number] April Thompson Inpatient Encounter FTMCBuildin g:ICRoom: YB05Iwt: 01 [facility] 01/03/2025 [id number] April Thompson Inpatient Encounter [facility]Buildin g:CVRoom: JK77Qnb: 01 [facility] 12/27/2024 [id number] April Thompson Ambulatory [facility]Build[facility] g:FT PST [facility] 12/27/2024/04/28 [id number] April Thompson [facility] 12/23/2024/12/24/19 [id number] Ambulatory Buildin 462 [facility] Ambulatory PPG 12/02/2024/12/03/19 [id number] Ambulatory Buildin 462 [facility] 11/29/2024/11/30/19 [id number] Ambulatory Building:CC B [facility] 11/25/2024/11/26/19 [id number] Ambulatory Building:PF M_CT [facility] 11/25/2024/11/26/19 [id number] Ambulatory Buildin 462 [facility] Ambulatory [facility] 11/15/2024/11/16/19 [id number] Ambulatory Buildin 391 [facility]ulatory [facility] 07/08/2024/07/08/20 24 [id number] Ambulatory Building:PT H_PML [facility] 07/08/2024/07/08/20 24 [id number] Ambulatory Buildin 391 [facility] Ambulatory [facility] FUNCTIONAL STATUS No Functional Status Records Found EQUIPMENT No Equipment Records Found PAYERS ENCOUNTER GUARANTOR PAYER SUBSCRIBER SOURCE 01/13/2025 IRMA MOHANOB: [place] [id number]: (HP) Primary Insurance:INOVA CAREPolicy Number: [id number] Date:2024-05-16 IRMA MOHANOB: [id number] [place] [address]00510Tel: (HP) (WP) [facility] 01/03/2025 IRMA MOHANOB: [facility] 175Tel: ~~(4 1 (HP) Primary Insurance:Miscellaneous Insurance CompanyPolicy Number: [id number] Date:2024-09-01 IRMA HERRERAUNK [facility] 01/03/2025 IRMA PANIAGUA: [facility] 175Tel: ~~(4 1 (HP) Primary Insurance:PHCSPolicy Number: [id number] Date: [address] [address]UV: IRMAJORGE MOORE [facility] 01/03/2025 IRMA MOHAN: [facility] 175Tel: ~~(4 1 (HP) Primary Insurance:PHCSPolicy Number: [id number] Date: [address] [address]DU: IRMAJORGE MOORE [facility] 12/27/2024 IRMA MOHAN: [facility] 175Tel: ~([phone] (HP) Primary Insurance:PHCSPolicy Number: [id number] Date: [address] [address]QS: [facility]/27/2024 IRMA PANIAGUA: [facility] 175Tel: ~~(4 1 (HP) Primary Insurance:Miscellaneous Insurance CompanyPolicy Number: [id number] Date:2024-09-01 IRMA MOORE [facility] 12/23/2024 IRMA PANIAGUA: [address] [address]Usu: (HP) Primary Insurance:INOVA CAREPolicy Number: [id number] Date:2024-05-16 IRMA PANIAGUA: [id number] [address] [address]Ddu: (HP) (WP) [facility] 12/02/2024 IRMA MOHANOB: [address] [address]Nvy: (HP) Primary Insurance:INOVA CAREPolicy Number: [id number] Date:2024-05-16 IRMA MOHANOB: [id number] [address] [place] [address]Qpa: (HP) (WP) [facility] 11/29/2024 Primary Insurance:GENERIC COMMERCIALPolicy Number: [id number] Date:2024-09-01 IRMA RAMÍREZ VDOB: [id number] [place] [address] [facility] 11/25/2024 IRMA MOHANOB: [address] [place] [address]Yvg: (HP) Primary Insurance:INOVA CAREPolicy Number: [id number] Date:2024-05-16 IRMA MOHANOB: [id number] [address] [place] [address]Dmd: (HP) (WP) [facility] 11/25/2024 IRMA MOHANOB: [address] [place] [address]Cvv: (HP) Primary Insurance:INOVA CAREPolicy Number: [id number] Date:2024-05-16 IRMA MOHANOB: [id number] [address] [place] [address]Kwu: (HP) (WP) [facility] 11/15/2024 IRMA MOHANOB: [address], [place] [address]Zkz: (HP) Primary Insurance:INOVA CAREPolicy Number: [id number] Date:2024-05-16 IRMA MOHANOB: [id number] [address], [place] [address]Sla: (HP) (WP) [facility] 07/08/2024 IRMA MOHANOB: [address], [place] [address]Kjg: (HP) Primary Insurance:NOT GIVENPolicy Number: [id number] Date:2024-05-16 IRMA MOHANOB: [id number] [address], [place] [address]Mfv: (HP) (WP) [facility] 07/08/2024 IRMA MOHANOB: [id number] [address], [place] [address]Cev: (HP) Primary Insurance:NOT GIVENPolicy Number: [id number] Date:2024-05-16 IRMA PANIAGUA: [id number] [address], [place] [address]Kpl: (HP) (WP) [facility] SOCIAL HISTORY No Social History Records Found FAMILY HISTORY No Family History Records Found No Status Records Found ADVANCE DIRECTIVES No Advanced Directives Records Found INFORMATION SOURCE DATE CREATED AUTHOR AUTHOR'S ORGANIZ ATION 01/21/2025 JONATAN
[2025-01-21] VITALS (29 sets, daily range): BP systolic 159–183; BP diastolic 84–100; PULSE 105; TEMP 36.7; O2SAT 97–100; BMI 22.3
[2025-01-21 21:05] LABS: Internal Control Within Normal Limits; Strep A Antigen Screen Negative
[2025-01-21 21:12] LABS: Alanine Aminotransferase 47 U/L (16-63); Albumin Globulin Ratio 0.6; Albumin Level 3.3 g/dL (3.4-5.0); Alkaline Phosphatase 88 U/L (46-116); Anion Gap 14.8; Aspartate Amino Transferase 30 U/L (15-37); BUN Creatinine Ratio 18.2; Bilirubin Total 0.4 mg/dL (0.2-1.0); Calcium 9.1 mg/dL (8.5-10.1); Chloride 99 mmol/L (98-107); Estimated GFR (African America >60 (>=60 mL/min/1.73m^2); Estimated GFR (Non-African Ame >60 (>=60 mL/min/1.73m^2); Globulin 5.3 g/dL; Glucose 107 mg/dL (74-106); Potassium 3.8 mmol/L (3.5-5.1); Sodium 138 mmol/L (136-145); Total Protein 8.6 g/dL (6.4-8.2)
[2025-01-21 21:19] LABS: INR 1.06; Prothrombin Time 11.2 sec (9.0-11.6)
[2025-01-21 21:20] LABS: Partial Thromboplastin Time 44.8 sec (22.3-36.2)
[2025-01-21 21:36] LABS: Basophils Percent Auto 0.3 % (0.2-2.0); Eosinophils Percent Auto 0.3 % (0.9-7.0); Hematocrit 39.9 % (42.0-54.0); Hemoglobin 13.7 g/dL (14.0-18.0); Immature Granulocytes Abs Auto 0.05 10^3/uL (0.00-0.03); Immature Granulocytes Pct Auto 0.6 % (0.0-0.5); Lymphocytes Absolute Auto 1.4 10^3/uL (1.2-3.8); Lymphocytes Percent Auto 16.1 % (20.5-60.0); Mean Corpuscular HGB Conc 34.3 g/dL (29.9-35.2); Mean Corpuscular Hemoglobin 29.4 pg (25.9-34.0); Mean Corpuscular Volume 85.6 fL (80.0-94.0); Monocytes Absolute Auto 1.1 10^3/uL (0.3-0.8); Monocytes Percent Auto 12.4 % (1.7-12.0); Neutrophils Absolute Auto 6.3 10^3/uL (1.4-6.5); Neutrophils Percent Auto 70.3 % (43.0-75.0); Red Blood Count 4.66 10^6/uL (4.70-6.10); Red Cell Distribution Width 12.7 % (11.0-15.0); White Blood Count 8.9 10^3/uL (4.0-11.0)
[2025-01-21 22:05] LABS: Platelet Count 4 10^3/uL (150-450)
--- NOTE | 2025-01-21 22:12 | PC.NURSE ---
Dr Parmar informed of the critical lab results plts of 4,000
--- NOTE | 2025-01-21 22:23 | CT_ITS ---
The [address] [address] Patient Name: IRMA RAMÍREZ MRN: [id number] date: 1960 Sex: M Assigned Patient Location: ED.MAIN Current Patient Location: ED.MAIN Accession/Order Number: [id number] Exam Date: 01/21/2025 23:08 Report Date: 01/21/2025 23:17 At the request of: KRISTY ALFRED Procedure: CT abdomen pelvis w con CT Abdomen and Pelvis withcontrast TECHNIQUE: Axial imaging with 2-D reconstruction.100 cc of Omni 300. The CT exam was performed using one or more the following dose reduction techniques: Automated exposure control, adjustment of the MA and/or Kv according to patient size, or use of the iterative reconstruction technique. COMPARISON: None History: Recent abdominal aortic aneurysm repair. Incisional bleeding. LIMITATIONS: None LOWER THORAX linear atelectasis/scarring LIVER: Multiple small hepatic cysts. GALLBLADDER: No gallbladder abnormality identified. BILE DUCTS: No dilatation SPLEEN: Unremarkable PANCREAS: Unremarkable ADRENAL GLANDS: Unremarkable KIDNEYS:Punctate bilateral nephrolithiasis AORTA: The aortobiiliac endograft stent is patent. The cantwell fusiform infrarenal thrombosed abdominal aortic aneurysm measuring up to 4.8 cm. No graft leak. RETROPERITONEUM: No significant retroperitoneal abnormalities identified. MESENTERY:Unremarkable SMALL BOWEL: The small bowel loops are nondistended. APPENDIX: The appendix is normal. COLON: Unremarkable URINARY BLADDER: Urinary bladder is unremarkable. REPRODUCTIVE SYSTEM: Prostatomegaly PNEUMOPERITONEUM: None PERITONEAL FLUID:None BONY STRUCTURES: Lumbar facet degeneration ABDOMINAL WALL: Inflammatory changes in the right groin likely correlate with a region of incision. No fluid collection identified. No pseudoaneurysm identified. CT/CT abdomen pelvis w con IMPRESSION: Patent graft. 4.8 cm thrombosed infrarenal fusiform abdominal aorta. No leak. No acute findings. Impression dictated by: Errol Garcia M.D. 01/21/2025 11:17 PM Dictation Location: [employer] Electronically authenticated by: [id number] Y Date: 01/21/2025 23:17
--- NOTE | 2025-01-21 22:29 | ED_ITS ---
HPI HPI - General Adult General Chief complaint: Skin/Abscess/Foreign Body Stated complaint: wound check Time Seen by Provider: 01/21/25 19:40 Source: patient Mode of arrival: walk-in Limitations: no limitations History of Present Illness HPI narrative: cc - bleeding from abdominal surgical site and bloody blisters in mouth The patient underwent surgical repair of an abdominal aortic aneurysm at [facility] in [place] on January 03, 2025. The patient noted that a small cotton ball had fallen away from his OpSite tonight and he had bleeding from that area so he came in for evaluation. He mentioned that over the last 24 to 48 hours he also developed blood blisters on the inside of his mouth. He denied any abdominal pain or pain in the mouth. He has no other areas of bleeding. The bleeding in the right groin is controlled at this time. He does have a bandage there but it has been pulled back and does not fully stick at this time. He denies any blood in his urine or stool. Related Data Home Medications ?Medication ?Instructions ?Recorded ?Confirmed aspirin 81 mg tablet 81 mg PO DAILY 01/21/2512/31 rosuvastatin 10 mg tablet 10 mg PO DAILY 01/21/2512/31 Allergies Allergy/AdvReac Type Severity Reaction Status Date / Time No Known Drug Allergies Allergy Verified 01/21/25 19:54 [facility] Medical History (Updated 01/21/25 @ 23:22 by Mendy Bush) AAA (abdominal aortic aneurysm) ?I71.40 - Abdominal aortic aneurysm, without rupture, unspecified (ICD-10) High cholesterol ?E78.00 - Pure hypercholesterolemia, unspecified (ICD-10) Surgical History (Updated 01/21/25 @ 23:22 by Mendy Bush) History of AAA (abdominal aortic aneurysm) repair ?Z98.890 - Other specified postprocedural states (ICD-10) Social History Little interest or pleasure in doing things: not at all Feeling down, depressed, or hopeless: not at all Exam Narrative Exam Narrative: Nurses notes and vital signs reviewed and patient is not hypoxic. afebrile General: Well-appearing and in no apparent distress. Skin: Warm, dry, no pallor noted. No rash, purpura or petechia noted on the skin. Head: Normocephalic, atraumatic. Eye: Pupils are equal, round and EOMI. No scleral icterus. Ears, Nose, Mouth, and Throat: TM are clear, no posterior oropharynx bleeding or lesions. He does have several bloody blisters noted on the inside oral mucosa of the lower lip and lower left cheek. Oral mucosa is moist Cardiovascular: Borderline tachycardia. Respiratory: No accessory muscle use or respiratory distress. Lungs are clear to auscultation, no wheezing, rales or rhonchi Chest Wall: no tenderness Musculoskeletal: normal ROM, no calf or popliteal tenderness, no lower extremity edema/swelling GI: Abdomen is soft, non-distended. Normal bowel sounds. No solid or pulsatile masses appreciated. No tenderness to palpation. No rebound, guarding, or rigidity noted. The right inguinal insertion site from his recent surgical procedure has a small amount of dried blood around it but no active bleeding at this time. There is no palpable mass. No pulsatile masses noted. No erythema, warmth or findings indicative of infection are noted at the site. Neurological: A&O x4. No cranial nerve dysfunction observed. No truncal ataxia. Moves all extremities. Sensation intact. Psychiatric: Cooperative and interactive. Normal mood and affect. Constitutional Vital Signs, click to edit/add: Last Vital Signs Temp 98.0 F 01/21/25 19:55 Pulse 105 H 01/21/25 19:55 Resp 19 01/21/25 19:55 BP 170/84 H 01/21/25 23:00 Pulse Ox 98 01/21/25 23:00 O2 Del Method Room Air 01/21/25 19:55 Course Vital Signs Vital signs: Vital Signs Temperature 98.0 F 01/21/25 19:55 Pulse Rate 105 H 01/21/25 19:55 Respiratory Rate 01/21/25 19:55 Blood Pressure 171/100 H 01/21/25 19:55 Pulse Oximetry 98 01/21/25 19:55 Oxygen Delivery Method Room Air 01/21/25 19:55 Temperature 98.0 F 01/21/25 19:55 Pulse Rate 105 H 01/21/25 19:55 Respiratory Rate 01/21/25 19:55 Blood Pressure 170/84 H 01/21/25 23:00 Pulse Oximetry 98 01/21/25 23:00 Oxygen Delivery Method Room Air 01/21/25 19:55 Medical Decision Making MDM Narrative Medical decision making narrative: Patient presents with bloody ulcers/blisters on the inside of his mouth and also noted some bleeding from the insertion site through which he had a recent abdominal aortic aneurysm surgery at [facility] on January 03, 2025. Blood drawn and sent for testing. Peripheral IV established. Patient found to have moderately elevated PTT and markedly decreased platelets - only 4000. We do not have platelets transfused at this facility, additionally we do not have surgical coverage should the patient have any intra-abdominal issue and furthermore did not have hematological oncological coverage over the weekend. I spoke with the patient, informed him of this and recommend that he be transferred to a tertiary care facility. Call placed to [facility] in order to transfer this patient to their facility for platelet therapy, further evaluation and workup including monitoring for this condition. @ [phone] Wilson - he accepted the patient's transfer to [facility] for admission/transfer. Pt made aware of transfer to [facility]. Arrangements being made to transfer to their facility once a bed assignment is provided. CT of the abdomen pelvis with IV contrast shows a patent graft, 4.8 cm thrombosed infrarenal fusiform abdominal aorta, no leak, no acute findings -Per radiologist Ambulance transport arrangements made for the patient - he is stable for transfer. Lab Data Lab results reviewed: Yes I reviewed the patient's lab results Labs: Lab Results 01/21/25 01/21/25 01/21/25 Range/Units 20:37 20:38 21:28 WBC 8.9 (4.0-11.0) 10^3/uL RBC 4.66 L (4.70-6.10) 10^6/uL Hgb 13.7 L (14.0-18.0) g/dL Hct 39.9 L (42.0-54.0) % MCV 85.6 (80.0-94.0) fL MCH 29.4 (25.9-34.0) pg MCHC 34.3 (29.9-35.2) g/dL RDW 12.7 (11.0-15.0) % Plt Count 4 L* (150-450) 10^3/uL Neut % (Auto) 70.3 (43.0-75.0) % Lymph % (Auto) 16.1 L (20.5-60.0) % [place] % (Auto) 12.4 H (1.7-12.0) % Eos % (Auto) 0.3 L (0.9-7.0) % Baso % (Auto) 0.3 (0.2-2.0) % Neut # (Auto) 6.3 (1.4-6.5) 10^3/uL Lymph # (Auto) 1.4 (1.2-3.8) 10^3/uL [place] # (Auto) 1.1 H (0.3-0.8) 10^3/uL Eos # (Auto) 0.0 (0.0-0.7) 10^3/uL Baso # (Auto) 0.0 (0.0-0.1) 10^3/uL Abs Immat Gran (auto) 0.05 H (0.00-0.03) 10^3/uL Imm/Tot Granulo (auto) 0.6 H (0.0-0.5) % PT 11.2 (9.0-11.6) sec INR 1.06 APTT 44.8 H* (22.3-36.2) sec Sodium 138 (136-145) mmol/L Potassium 3.8 (3.5-5.1) mmol/L Chloride 99 (98-107) mmol/L Carbon Dioxide 28.0 (21.0-32.0) mmol/L Anion Gap 14.8 BUN 14.0 (7.0-18.0) mg/dL Creatinine 0.77 (0.70-1.30) mg/dL Est GFR ( Amer) >60 (>=60 mL/min/1.73m^2) Est GFR (Non-Af Amer) >60 (>=60 mL/min/1.73m^2) BUN/Creatinine Ratio 18.2 Glucose 107 H (74-106) mg/dL Calcium 9.1 (8.5-10.1) mg/dL Total Bilirubin 0.4 (0.2-1.0) mg/dL AST 30 (15-37) U/L ALT 47 (16-63) U/L Alkaline Phosphatase 88 (46-116) U/L Total Protein 8.6 H (6.4-8.2) g/dL Albumin 3.3 L (3.4-5.0) g/dL Globulin 5.3 g/dL Albumin/Globulin Ratio 0.6 Streptococcus Screen Negative Imaging Data CT scan - abdomen: Attestation: I have reviewed the pertinent imaging results. Radiologist's impression: ITS Impressions Abdomen/Pelvis CT 01/21/25 22:23 IMPRESSION: Patent graft. 4.8 cm thrombosed infrarenal fusiform abdominal aorta. No leak. No acute findings. Impression dictated by: Errol Garcia M.D. 01/21/2025 11:17 PM Dictation Location: [facility] Electronically authenticated by: [id number] Y Date: 01/21/2025 23:17 Discharge Plan Discharge Chief Complaint: Skin/Abscess/Foreign Body Clinical Impression: Severe thrombocytopenia, Oral ulcer Patient Disposition: [facility] Time of Disposition Decision: 22:33 Discharge Location: [facility]
[2025-01-22] VITALS (16 sets, daily range): BP systolic 138–155; BP diastolic 61–88; PULSE 87; TEMP 37.1; O2SAT 96–98
--- NOTE | 2025-01-22 02:31 | PC.NURSE ---
i gave this patient's report to [facility] crew, this patient voices no concerns and shows no signs of distress. [facility] crew was given patient's paper work. I called patient report to [facility] (room 3008) and spoke with nurse Coughlin
== END 2025-01-22 02:31 | disposition short-term general hospital (02) ==
PROVIDERS: Emergency Provider Emergency Medicine; PCP Family Medicine
DX: D69.6 Thrombocytopenia, unspecified (principal); K12.1 Other forms of stomatitis; Z98.890 Other specified postprocedural states
CPT/HCPCS: 36415; 74177; 80053; 85025; 85610; 85730; 87070; 87880; 99284; Q9967

== ENCOUNTER 2025-01-31 09:02 | Outpatient (OUT) | payer OTHER, SELFPAY ==
--- OUTSIDE RECORDS SUMMARY | 2025-01-22 03:32 | XMS_ITS | Encounter Summary ---
Author Organization [facility] [employer] [facility] Address [address] [place] [address] Care Team Providers Care Salesforce Administrator Name Role Phone Davion Stephenson Primary Care Provider + [phone] Reason for Visit * Auth/Cert (Routine) Specialty Diagnoses / Procedures Referred By Fei gurera Referred To Contact Diagnoses Thrombocytopenia Uzair Wilson MD [address] [address] Phone: tel: fax: [facility] [address] [place] [address] Referral ID Status Reason Start Date Expiration Date Visits Re quested Visits Authorized [id number] 1 1 Encounter Details Date Type Department Care Team (Latest Contact Info) Description 01/22/2025 3:32 AM EDT - 01/27/2025 12:35 PM EDT Hospital Encounter [facility] 4C Onc/Med Surg [address] [place], [place] [id number] Uzair Wilson MD [address] [facility] [address] [place], [place] [id number] Anish Canada DO [address] [place] [address] Melisa Mejia MD [address] [facility] [address] [place] [address] H. pylori infection (Primary Dx); S/P AAA repair; Rash; Thrombocytopenia Discharge Disposition: Home or Self Care Social History Tobacco Use Types Packs/Day Years Used Date Smoking Tobacco: Former Cigarettes 0.5 34.2 S tarted: 09/01/1990 Smokeless Tobacco: Never Tobacco Cessation:Counseling Given: Yes Alcohol Use Standard Drinks/Week Comments Never 0 (1 standard drink = 0.6 oz pur e alcohol) [facility] Utilities Answer Date Recorded In the past 12 months has th e [employer], gas, oil, or water company threatened to [...] any time in the past 12 m [facility], were you homeless or living in a jail (including now)? No 01/22/2025 Food Insecurity Answer [...] from the original note were not included. [facility] Office: [phone] Harman Canada DO, Jose Alfredo Spear DO, [...] Mercado MD, Nguyen Estrada MD, Samantha Betts, PRODUCT SAFETY TECHNICIAN, Gertrude Currie, PRODUCT SAFETY TECHNICIAN, Mark Mata, PRODUCT SAFETY TECHNICIAN, Daphne Piña, [facility], Nicole Olivas, PRODUCT SAFETY TECHNICIAN, Alesha Hutchison, PRODUCT SAFETY TECHNICIAN, Mary Sands, PRODUCT SAFETY TECHNICIAN, Chanel Price, PRODUCT SAFETY TECHNICIAN, Lisbeth Desai, PADannyC, Danelle Rosas, PRODUCT SAFETY TECHNICIAN, Velma De La Cruz, PRODUCT SAFETY TECHNICIAN, Kathya Kim, PRODUCT SAFETY TECHNICIAN, Corina Hayward, PRODUCT SAFETY TECHNICIAN, Taurus Esteban PADannyC, Linda Chino, PRODUCT SAFETY TECHNICIAN, Alicia Blackman, [facility], Mendy Fajardo, PRODUCT SAFETY TECHNICIAN, Nedra Isbell, PRODUCT SAFETY TECHNICIAN, Itzel Luna, PRODUCT SAFETY TECHNICIAN [facility] IN-PATIENT SERVICE [facility] Discharge Summary Patient ID: Ambrosio Ramírez : 1960 ACCOUNT: [id number] Patient's PCP: Davion Stephenson DO Admit Date: [...] Stephenson, DO [address] [place] [address] Follow up Joseph Kwong MD [address] [facility] [address] Follow up Requiring Further Evaluation/Follow [...] Your Medications These medications were sent to [facility] - [place], [place] - [address] - P [phone] - F [phone] [place] [address] metroNIDAZOLE 500 MG tablet pantoprazole 40 MG [...] 30 doses 30 tablet 01/27/2025 02/27/20 25 predniSONE (DELTASONE) 20 MG tablet Take 1 tablet by mouth daily for 7 doses 7 tablet 01/27/2025 02/04/20 25 bismuth subsalicylate (PEPTO BISMOL) 262 MG/15ML [...] for Constipation 30 packet 01/27/2025 02/27/20 25 documented as of this encounter Progress Notes * Mili Weinberg RN - 01/27/2025 12:36 PM EDT Patient educated on discharge instructions * Nadeen Almaguer - 01/27/2025 10:40 AM EDT Pt has no rx coverage and high copays; RN called rx to state that pt wants to get them filled at his pharmacy- physician underwriter asked RN to have dr powercel and [...] who is transferred from outside facility to [facility] for higher level of care. Patient initially presented to the [facility] with chief complaint of bleeding from [...] NEGATIVE Ketones, Urine NEGATIVE NEGATIVE mg/dL Specific [place], UA 1.052 (H) 1.005 - 1.030 Urine [...] Granulocytes Absolute 0.06 0.00 - 0.30 k/uL [id number] ACTIVITY Result Value Ref Range JBUUVA54 Activity >100 >=61 % Vitamin B12 & Folate Result Value Ref Range Vitamin B-12 624 232 - 1245 pg/mL Folate 11.7 4.8 - 24.2 ng/mL Electrophoresis Protein, Serum Result Value Ref Range Total Protein 8.3 6.6 - 8.7 g/dL Albumin (calculated) 3.1 (L) 3.2 - 5.2 g/dL Albumin % 37 (L) 56 - 66 % Flofl-4-Ukhzgiua 0.4 0.1 - 0.4 g/dL Alpha 1 % 5 3 - 5 % Lflbj-1-Jtgwmsry 1.0 (H) 0.5 - 0.9 g/dL Alpha [...] Result Value Ref Range Surgical Pathology Report [id number] [facility] CONSULTING PATHOLOGISTS [facility] ANATOMIC PATHOLOGY [address] [place] [address]. [place], [place] [address] SURGICAL PATHOLOGY CONSULTATION Patient Name: AMBROSIO RAMÍREZ V. MR#: [id number] Specimen #[id number] Procedures/Addenda PERIPHERAL BLOOD REPORT Date Ordered: 01/23/2025 Status: Signed Out Date Complete: 01/25/2025 By: Tamanna Gonzales M.D. Date Reported: 01/25/2025 INTERPRETATION Peripheral blood: - Normocytic red blood cells with unremarkable morphology. - White blood cells with normal morphology. No blasts. - Marked thrombocytopenia. RESULTS-COMMENTS PERIPHERAL BLOOD STUDY CBC: Please see the electronic health record for CBC parameters ([id number], 01/22/2025, 04:18). PLATELETS: Marked thrombocytopenia. LEUKOCYTES: White [...] for comparison. HISTORY: ORDERING SYSTEM PROVIDED HISTORY[facility] TECHNOLOGIST PROVIDED HISTORY: [facility] evalaute for malignancy FINDINGS: Mediastinum: Thoracic aorta [...] Patient can follow-up at our office in [facility] Robel Mccormack M.D. This note is [...] from the original note were not included. [facility] Office: [phone] Harman Canada DO, Jose Alfredo Spear DO, [...] Mercado MD, Nguyen Estrada MD, Samantha Betts, PRODUCT SAFETY TECHNICIAN, Gertrude Currie, PRODUCT SAFETY TECHNICIAN, Mark Mata, PRODUCT SAFETY TECHNICIAN, Daphne Piña, FABIANA, Nicole Olivas, PRODUCT SAFETY TECHNICIAN, Alesha Hutchison, PRODUCT SAFETY TECHNICIAN, Mary Sands, PRODUCT SAFETY TECHNICIAN, Chanel Price, PRODUCT SAFETY TECHNICIAN, Lisbeth Desai, LIZETTC, Danelle Rosas, PRODUCT SAFETY TECHNICIAN, Velma De La Cruz, PRODUCT SAFETY TECHNICIAN, Kathya Kim, PRODUCT SAFETY TECHNICIAN, Corina Hayward, PRODUCT SAFETY TECHNICIAN, LIZETT CansecoC, Linda Chino, PRODUCT SAFETY TECHNICIAN, Alicia Blackman, [facility], Mendy Fajardo, MOOSE, Nedra Isbell, MOOSE, Itzel Luna, PRODUCT SAFETY TECHNICIAN [facility] IN-PATIENT SERVICE [facility] Progress Note 01/27/2025 9:16 AM Name: Ambrosio Ramírez Acct: [id number] Room: [address] [place] [address] Day: 5 Admit Date: 01/22/2025 3:32 AM [...] results for input(s): LABALBU , LABA1C , W8VJCFX , FT4 , TSH , AST , ALT , LDH , GGT , ALKPHOS , BILITOT , BILIDIR , AMMONIA , AMYLASE , LIPASE , LACTATE , CHOL , HDL , CHOLHDLRATIO , TRIG , VLDL , BQO74LE , PHENYTOIN , PHENYF , URICACID , POCGLU in the last 72 hours. Invalid input(s): PROT , O4MPZUQ , LABGGT , LDLCHOLESTEROL ABG: Lab Results Component Value Date/Time POCPH 7.511 01/22/2025 10:30 AM POCPCO2 27.3 01/22/2025 10:30 AM POCPO2 87.1 01/22/2025 10:30 AM POCHCO3 21.9 01/22/2025 10:30 AM PBEA 0.2 01/22/2025 10:30 AM HHTE1SFR 97.7 01/22/2025 10:30 AM Lab Results Component [...] from the original note were not included. [facility] Office: [phone] Harman Canada DO, Jose Alfredo Spear DO, [...] Mercado MD, Nguyen Estrada MD, Samantha Betts, PRODUCT SAFETY TECHNICIAN, Gertrude Currie, PRODUCT SAFETY TECHNICIAN, Mark Mata, PRODUCT SAFETY TECHNICIAN, Daphne Piña, FABIANA, Nicole Olivas, MOOSE, Alesha Hutchison, MOOSE, Mary Sands, MOOSE, Chanel Price, PRODUCT SAFETY TECHNICIAN, Lisbeth Desai, LUZMARIA, Danelle Rosas, PRODUCT SAFETY TECHNICIAN, Velma De La Cruz, PRODUCT SAFETY TECHNICIAN, Kathya Kim, PRODUCT SAFETY TECHNICIAN, Corina Hayward, PRODUCT SAFETY TECHNICIAN, Taurus Esteban PA-C, Linda Chino CNP, Alicia Blackman, [employer], Mendy Fajardo, MOOSE, Nedra Isbell, MOOSE, Itzel Luna, MOOSE [facility] IN-PATIENT SERVICE [facility] Progress Note 01/26/2025 3:49 PM Name: Ambrosio Ramírez Acct: [id number] Room: [address] [place] [address] Day: 4 Admit Date: 01/22/2025 3:32 AM [...] 10:30 AM PBEA 0.2 01/22/2025 10:30 AM [id number] 97.7 01/22/2025 10:30 AM Lab Results Component [...] who is transferred from outside facility to [facility] for higher level of care. Patient initially presented to the [facility] with chief complaint of bleeding from [...] NEGATIVE Ketones, Urine NEGATIVE NEGATIVE mg/dL Specific [place], UA 1.052 (H) 1.005 - 1.030 Urine [...] Granulocytes Absolute 0.06 0.00 - 0.30 k/uL [id number] ACTIVITY Result Value Ref Range IKSNHB60 Activity >100 >=61 % Vitamin B12 & Folate Result Value Ref Range Vitamin B-12 624 232 - 1245 pg/mL Folate 11.7 4.8 - 24.2 ng/mL Electrophoresis Protein, Serum Result Value Ref Range Total Protein 8.3 6.6 - 8.7 g/dL Albumin (calculated) 3.1 (L) 3.2 - 5.2 g/dL Albumin % 37 (L) 56 - 66 % Ykexk-6-Zsxesocj 0.4 0.1 - 0.4 g/dL Alpha 1 % 5 3 - 5 % Xkvfo-3-Bnaurgwl 1.0 (H) 0.5 - 0.9 g/dL Alpha [...] Result Value Ref Range Surgical Pathology Report [id number] [facility] CONSULTING PATHOLOGISTS [facility] AN[facility] PATHOLOGY [address] [place] [address]. [place], [place] [address] SURGICAL PATHOLOGY CONSULTATION Patient Name: AMBROSIO RAMÍREZ V. MR#: [id number] Specimen #[id number] Procedures/Addenda PERIPHERAL BLOOD REPORT Date Ordered: 01/23/2025 Status: Signed Out Date Complete: 01/25/2025 By: Tamanna Gonzales M.D. Date Reported: 01/25/2025 INTERPRETATION Peripheral blood: - Normocytic red blood cells with unremarkable morphology. - White blood cells with normal morphology. No blasts. - Marked thrombocytopenia. RESULTS-COMMENTS PERIPHERAL BLOOD STUDY CBC: Please see the electronic health record for CBC parameters ([id number], 01/22/2025, 04:18). PLATELETS: Marked thrombocytopenia. LEUKOCYTES: White [...] for comparison. HISTORY: ORDERING SYSTEM PROVIDED HISTORY[facility] TECHNOLOGIST PROVIDED HISTORY: [facility] evalatea for malignancy FINDINGS: Mediastinum: Thoracic aorta is [...] this patient. Kathi Angel APRN - MOOSE [facility] Hematology/Oncology 01/26/2025 I have discussed the care [...] plan and orders as documented by the COCONUT CANDY MAKER with the following addendum More than 50% [...] from the original note were not included. [facility] Office: [phone] Harman Canada DO, Jose Alfredo Spear DO, [...] Hutchison, MOOSE, Mary Sands CNP, Chanel Price, PRODUCT SAFETY TECHNICIAN, Lisbeth Desai PA-C, Danelle Rosas CNP, Velma De La Cruz CNP, Kathya Kim, MOOSE, Corina Hayward, MOOSE, Taurus Esteban PA-C, Linda Chino, MOOSE, Alicia Blackman, SHAWNA, Mendy Fajardo, MOOSE, Nedra Isbell, MOOSE, Itzel Luna, MOOSE [facility] IN-PATIENT SERVICE [facility] Progress Note 01/25/2025 11:50 AM Name: Ambrosio Ramírez Acct: [id number] Room: [address] [place] [address] Day: 3 Admit Date: 01/22/2025 3:32 AM [...] 10:30 AM PBEA 0.2 01/22/2025 10:30 AM [id number] 97.7 01/22/2025 10:30 AM Lab Results Component [...] who is transferred from outside facility to [facility] for higher level of care. 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 No [...] NEGATIVE Ketones, Urine NEGATIVE NEGATIVE mg/dL Specific [place], UA 1.052 (H) 1.005 - 1.030 Urine [...] Granulocytes Absolute 0.06 0.00 - 0.30 k/uL [id number] ACTIVITY Result Value Ref Range SUASRI37 Activity >100 >=61 % Vitamin B12 & Folate Result Value Ref Range Vitamin B-12 624 232 - 1245 pg/mL Folate 11.7 4.8 - 24.2 ng/mL Electrophoresis Protein, Serum Result Value Ref Range Total Protein 8.3 6.6 - 8.7 g/dL Albumin (calculated) PENDING g/dL Albumin % PENDING % Xdnuh-5-Dtqmlwgy PENDING g/dL Alpha 1 % PENDING % Gabzo-0-Ntoajven PENDING g/dL Alpha 2 % PENDING % [...] Will discuss further treatment plan with Dr. Mccormack With patient's such severe thrombocytopenia, I still [...] to see this patient. YANCY Samuels CNP [facility] Hematology/Oncology 01/25/2025 I have discussed the care [...] plan and orders as documented by the COCONUT CANDY MAKER with the following addendum More than 50% [...] Reese RN - 01/24/2025 4:23 PM EDT Roller Hand called and provided report to ROSALIE Leon at this time on 4C. * Mely Reese RN - 01/24/2025 3:41 PM EDT Platelets level critical of 8. Pumper Gauger notified okay with patient transferring out of [...] who is transferred from outside facility to [facility] for higher level of care. Patient initially presented to the [facility] with chief complaint of bleeding from [...] solution 20 g 20 g Oral Once RatPérez Laguna MD pantoprazole (PROTONIX) tablet 40 mg 40 [...] NEGATIVE Ketones, Urine NEGATIVE NEGATIVE mg/dL Specific [place], UA 1.052 (H) 1.005 - 1.030 Urine [...] (calculated) PENDING g/dL Albumin % PENDING % Teprs-1-Vmjrkryv PENDING g/dL Alpha 1 % PENDING % Mppos-1-Hwijorfq PENDING g/dL Alpha 2 % PENDING % [...] for comparison. HISTORY: ORDERING SYSTEM PROVIDED HISTORY: [facility] evalaute for malignancy TECHNOLOGIST PROVIDED HISTORY: itp [...] Patient's name: Ambrosio Ramírez Patient's account/billing number: [id number] Patient's Date of : 1960 Age: 64 [...] [facility] from the access site in the right groin for his AAA repair. As per the patient, he was taking shower when he noted spots of blood on the dressing at the exit site. Patient got concerned and went to the [facility]. At the outlying facility, patient was [...] groin as well. Patient was transferred to [facility] ICU for the concern of severe thrombocytopenia [...] Patient's name: Ambrosio Ramírez Patient's account/billing number: [id number] Patient's Date of : 1960 Age: 64 [...] [facility] bleeding from the access site in the right groin for his AAA repair. As per the patient, he was taking shower when he noted spots of blood on the dressing at the exit site. Patient got concerned and went to the [facility]. At the outlying facility, patient was [...] groin as well. Patient was transferred to [facility] ICU for the concern of severe thrombocytopenia [...] Date 01/24/25 0000 - 01/24/25 2359 Shift [id number] 6419-4212 4897-8038 24 Hour Total INTAKE Shift Total(mL/kg) OUTPUT [...] results found for: PHART , PH , EYM8TYM , PCO2 , PO2ART , PO2 , VBO0SSF , HCO3 , BEART , BE , THGBART , THB , THW8KMV , U9QODBBK , O2SAT , FIO2 DATA: Complete Blood [...] for comparison. HISTORY: ORDERING SYSTEM PROVIDED HISTORY: [facility] evalatea for malignancy TECHNOLOGIST PROVIDED HISTORY: [facility] evalaute for malignancy FINDINGS: Mediastinum: Thoracic aorta [...] PGY-1 Department of Internal Medicine/ Critical care [place], [place] 01/24/2025 8:52 AM Attending Physician Statement [...] who is transferred from outside facility to [facility] for higher level of care. Patient initially presented to the [facility] with chief complaint of bleeding from [...] NEGATIVE Ketones, Urine NEGATIVE NEGATIVE mg/dL Specific [place], UA 1.052 (H) 1.005 - 1.030 Urine [...] (calculated) PENDING g/dL Albumin % PENDING % Auooo-7-Jjewprzw PENDING g/dL Alpha 1 % PENDING % Lynwv-4-Uwplybyx PENDING g/dL Alpha 2 % PENDING % [...] for comparison. HISTORY: ORDERING SYSTEM PROVIDED HISTORY: [facility] evalatea for malignancy TECHNOLOGIST PROVIDED HISTORY: [facility] evalaute for malignancy FINDINGS: Mediastinum: Thoracic aorta [...] Patient's name: Ambrosio Ramírez Patient's account/billing number: [id number] Patient's Date of : 1960 Age: 64 [...] [facility] bleeding from the access site in the right groin for his AAA repair. As per the patient, he was taking shower when he noted spots of blood on the dressing at the exit site. Patient got concerned and went to the [facility]. At the outlying facility, patient was [...] groin as well. Patient was transferred to [facility] ICU for the concern of severe thrombocytopenia [...] Date 01/23/25 0000 - 01/23/25 2359 Shift [id number] 4352-0048 4626-5650 24 Hour Total INTAKE I.V.(mL/kg) 1295.5(19.6) 1295.5(19.6) [...] results found for: PHART , PH , CVS1IAL , PCO2 , PO2ART , PO2 , YHH6DGU , HCO3 , BEART , BE , THGBART , THB , RYK7QHG , S4HXWDNV , O2SAT , FIO2 DATA: Complete Blood [...] for comparison. HISTORY: ORDERING SYSTEM PROVIDED HISTORY[facility] TECHNOLOGIST PROVIDED HISTORY: [facility] evalaute for malignancy FINDINGS: Mediastinum: Thoracic aorta [...] MD Department of Internal Medicine/ Critical care [place], [place] 01/23/2025 7:58 AM The critical care [...] Spiritual Care Department Today's Date: 01/22/2025 [facility] Received request from patient. Upon review of chart and communication with care team, patient's decision making abilities are not in question.. Patient was/were present in the room during visit. Goals of ACP Conversation: Discuss advance care planning documents Health Care Decision Makers: Steph Torres/ Sister in Law [facility] [place], [place] [address] Summary: Completed New Documents spoke to Health care Agent on phone. Advance Care Planning Documents (Patient Wishes): Healthcare Power of Data Clerk/Advance Directive Appointment of Health Care Agent Assessment: Health Care Agent consents to patient's wishes. Interventions: Assisted in the completion of documents according to patient's wishes at this time Care Preferences Communicated: No Outcomes/Plan: New advance directive completed. documented in this encounter Plan of Treatment Upcoming Encounters Date Type Department Care Team (Late st Contact Info) Description 02/02/2025 5:00 PM EDT Office Visit [facility] Part of [address] [address] Darryl Hendrix MD [address] [place] [address] F/U hospital stay low platelets Scheduled Orders Name Type Priority Associated Diagnoses Orde r Schedule CBC with Auto Differential Lab Routine H. pylori infection S/P AAA repair Expected: 02/03/2025 (Approximate), Expires: 01/27/2026 CBC Lab Routine H. pylori infection S/P AAA repair Rash Thrombocytopenia Twice a Week for 6 Occurrences starting 01/27/2025 until 01/27/2026 documented as of this encounter Procedures [...] PANEL Routine 01/23/2025 9: 02 AM EDT [id number] ACTIVITY Routine 01/23/2025 9:0 2 AM EDT [...] - 11.3 k/uL 01/27/2025 6:04 AM EDT [facility] RBC 3.77(L) 4.21 - 5.77 m/uL 01/27/2025 6:04 AM EDT [facility] Hemoglobin 10.9(L) 13.0 - 17.0 g/dL 01/27/2025 6:04 AM EDT [facility] Hematocrit 33.2(L) 40.7 - 50.3 % 01/27/2025 6:04 AM EDT [facility] MCV 88.1 82.6 - 102.9 fL 01/27/2025 6:04 AM EDT [facility] MCH 28.9 25.2 - 33.5 pg 01/27/2025 6:04 AM EDT [facility] MCHC 32.8 28.4 - 34.8 g/dL 01/27/2025 6:04 AM EDT [facility] RDW 13.3 11.8 - 14.4 % 01/27/2025 6:04 AM EDT [facility] Platelets See Reflexed IPF Result 138 - 453 k/uL 01/27/2025 6:04 AM EDT [facility] Platelet, Fluorescence 29(L) 138 - 453 k/uL 01/27/2025 6:04 AM EDT [facility] Platelet, Immature Fraction 14.5(H) 1.1 - 10.3 % 01/27/2025 6:04 AM EDT [facility] NRBC Automated 0.0 0.0 per 100 WBC 01/27/2025 6:04 AM EDT [facility] Neutrophils % 61 36 - 65 % 01/27/2025 6:04 AM EDT [facility] Lymphocytes % 25 24 - 43 % 01/27/2025 6:04 AM EDT [facility] Monocytes % 11 3 - 12 % 01/27/2025 6:04 AM EDT [facility] Eosinophils % 1 1 - 4 % 01/27/2025 6:04 AM EDT [facility] Basophils % 0 0 - 2 % 01/27/2025 6:04 AM EDT [facility] Immature Granulocytes % 1(H) 0 % 01/27/2025 6:04 AM EDT [facility] Neutrophils Absolute 4.59 1.50 - 8.10 k/uL 01/27/2025 6:04 AM EDT [facility] Lymphocytes Absolute 1.83 1.10 - 3.70 k/uL 01/27/2025 6:04 AM EDT [facility] Monocytes Absolute 0.85 0.10 - 1.20 k/uL 01/27/2025 6:04 AM EDT [facility] Eosinophils Absolute 0.08 0.00 - 0.44 k/uL 01/27/2025 6:04 AM EDT [facility] Basophils Absolute <0.03 0.00 - 0.20 k/uL 01/27/2025 6:04 AM EDT [facility] Immature Granulocytes Absolute 0.10 0.00 - 0.30 k/uL 01/27/2025 6:04 AM EDT [facility] Blood BLOOD SPECIMEN / Unknown 01/27/2025 6:04 AM EDT 01/27/2025 6:26 AM EDT Milind Corley MD HEMATOLOGY ORDERABLES Final Res ult [facility] [address] [place] [address], [facility] [phone] * (ABNORMAL) Basic Metabolic Panel w/ Reflex to MG (01/27/2025 6:04 AM EDT) Sodium 131(L) 136 - 145 mmol/L 01/27/2025 6:04 AM EDT [facility] Potassium 4.3 3.7 - 5.3 mmol/L 01/27/2025 6:04 AM EDT [facility] Comment: Specimen hemolysis has exceeded the interference as defined by Aidan. Value may be falsely increased. Suggest recollection if clinically indicated. Chloride 102 98 - 107 mmol/L 01/27/2025 6:04 AM EDT [facility] CO2 21 20 - 31 mmol/L 01/27/2025 6:04 AM EDT [facility] Anion Gap 8(L) 9 - 16 mmol/L 01/27/2025 6:04 AM EDT [facility] Glucose 81 74 - 99 mg/dL 01/27/2025 6:04 AM EDT [facility] BUN 15 8 - 23 mg/dL 01/27/2025 6:04 AM EDT [facility] Creatinine 0.7 0.7 - 1.2 mg/dL 01/27/2025 6:04 AM EDT [facility] Est, Glom Filt Rate >90 >60 mL/min/1. 73m2 01/27/2025 6:04 AM EDT [facility] Comment: These results are not intended for [...] - 10.4 mg/dL 01/27/2025 6:04 AM EDT [facility] Blood BLOOD SPECIMEN / Unknown 01/27/2025 6:04 AM EDT 01/27/2025 6:26 AM EDT us Milind Corley MD CHEMISTRY ORDERABLES Final Resu lt Performing Organization Address City/Va Hospital/ZIP Co de Phone Number [facility] [address] [place] [address] * (ABNORMAL) H. pylori antigen (01/26/2025 9:17 AM EDT) Specimen Description .FECES 01/26/2025 9:17 AM EDT [facility] Direct Exam POSITIVE( A) 01/26/2025 9:17 AM EDT [facility] STOOL SPECIMEN / Unknown 01/26/2025 9:17 AM EDT 01/26/2025 9:17 AM EDT Melisa Mejia MD BODY FLUIDS AND STOOLS ORD ERABLES Final Result Performing Organization Address City/Va Hospital/ZIP Co de Phone Number [facility] [address] [place] [address], [facility] [phone] * (ABNORMAL) CBC with Auto Differential (01/26/2025 3:07 AM EDT) WBC 9.9 3.5 - 11.3 k/uL 01/26/2025 3:07 AM EDT [facility] RBC 3.42(L) 4.21 - 5.77 m/uL 01/26/2025 3:07 AM EDT [facility] Hemoglobin 9.8(L) 13.0 - 17.0 g/dL 01/26/2025 3:07 AM EDT [facility] Hematocrit 30.3(L) 40.7 - 50.3 % 01/26/2025 3:07 AM EDT [facility] MCV 88.6 82.6 - 102.9 fL 01/26/2025 3:07 AM EDT [facility] MCH 28.7 25.2 - 33.5 pg 01/26/2025 3:07 AM EDT [facility] MCHC 32.3 28.4 - 34.8 g/dL 01/26/2025 3:07 AM EDT [facility] RDW 13.0 11.8 - 14.4 % 01/26/2025 3:07 AM EDT [facility] Platelets See Reflexed IPF Result 138 - 453 k/uL 01/26/2025 3:07 AM [facility] Platelet, Fluorescence 17(LL) 138 - 453 k/uL 01/26/2025 3:07 AM EDT [facility] Platelet, Immature Fraction 26.4(H) 1.1 - 10.3 % 01/26/2025 3:07 AM EDT [facility] NRBC Automated 0.3(H) 0.0 per 100 WBC 01/26/2025 3:07 AM EDT [facility] Neutrophils % 70(H) 36 - 65 % 01/26/2025 3:07 AM EDT [facility] Lymphocytes % 20(L) 24 - 43 % 01/26/2025 3:07 AM EDT [facility] Monocytes % 9 3 - 12 % 01/26/2025 3:07 AM EDT [facility] Eosinophils % 0(L) 1 - 4 % 01/26/2025 3:07 AM EDT [facility] Basophils % 0 0 - 2 % 01/26/2025 3:07 AM EDT [facility] Immature Granulocytes % 1(H) 0 % 01/26/2025 3:07 AM EDT [facility] Neutrophils Absolute 6.92 1.50 - 8.10 k/uL 01/26/2025 3:07 AM EDT [facility] Lymphocytes Absolute 1.98 1.10 - 3.70 k/uL 01/26/2025 3:07 AM EDT [facility] Monocytes Absolute 0.84 0.10 - 1.20 k/uL 01/26/2025 3:07 AM EDT [facility] Eosinophils Absolute <0.03 0.00 - 0.44 k/uL 01/26/2025 3:07 AM EDT [facility] Basophils Absolute <0.03 0.00 - 0.20 k/uL 01/26/2025 3:07 AM EDT [facility] Immature Granulocytes Absolute 0.09 0.00 - 0.30 k/uL 01/26/2025 3:07 AM EDT [facility] Blood BLOOD SPECIMEN / Unknown 01/26/2025 3:07 AM EDT 01/26/2025 3:20 AM EDT us Milind Corley MD HEMATOLOGY ORDERABLES Final Res ult [facility] [place] [id number] [address] [phone] * (ABNORMAL) Basic Metabolic Panel w/ Reflex to MG (01/26/2025 3:07 AM EDT) Sodium 132(L) 136 - 145 mmol/L 01/26/2025 3:07 AM EDT [facility] Potassium 4.0 3.7 - 5.3 mmol/L 01/26/2025 3:07 AM EDT [facility] Chloride 103 98 - 107 mmol/L 01/26/2025 3:07 AM EDT [facility] CO2 21 20 - 31 mmol/L 01/26/2025 3:07 AM EDT [facility] Anion Gap 8(L) 9 - 16 mmol/L 01/26/2025 3:07 AM EDT [facility] Glucose 95 74 - 99 mg/dL 01/26/2025 3:07 AM EDT [facility] BUN 17 8 - 23 mg/dL 01/26/2025 3:07 AM EDT [facility] Creatinine 0.6(L) 0.7 - 1.2 mg/dL 01/26/2025 3:07 AM EDT [facility] Est, Glom Filt Rate >90 >60 mL/min/1. 73m2 01/26/2025 3:07 AM EDT [facility] Comment: These results are not intended for [...] 8.6 - 10.4 mg/dL 01/26/2025 3:07 AM T [facility] Blood BLOOD SPECIMEN / Unknown 01/26/2025 3:07 AM EDT 01/26/2025 3:20 AM EDT us Milind Corley MD CHEMISTRY ORDERABLES Final Resu lt [facility] [address] [place] [address], [facility] [phone] * (ABNORMAL) CBC with Auto Differential (01/25/2025 6:32 AM EDT) WBC 9.5 3.5 - 11.3 k/uL 01/25/2025 6:32 AM EDT [facility] RBC 3.63(L) 4.21 - 5.77 m/uL 01/25/2025 6:32 AM EDT [facility] Hemoglobin 10.4(L) 13.0 - 17.0 g/dL 01/25/2025 6:32 AM EDT [facility] Hematocrit 32.2(L) 40.7 - 50.3 % 01/25/2025 6:32 AM EDT [facility] MCV 88.7 82.6 - 102.9 fL 01/25/2025 6:32 AM EDT [facility] MCH 28.7 25.2 - 33.5 pg 01/25/2025 6:32 AM EDT [facility] MCHC 32.3 28.4 - 34.8 g/dL 01/25/2025 6:32 AM EDT [facility] RDW 13.1 11.8 - 14.4 % 01/25/2025 6:32 AM EDT [facility] Platelets See Reflexed IPF Result 138 - 453 k/uL 01/25/2025 6:32 AM EDT [facility] Platelet, Fluorescence 6(LL) 138 - 453 k/uL 01/25/2025 6:32 AM EDT [facility] Platelet, Immature Fraction 22.8(H) 1.1 - 10.3 % 01/25/2025 6:32 AM EDT [facility] NRBC Automated 0.0 0.0 per 100 WBC 01/25/2025 6:32 AM EDT [facility] Neutrophils % 62 36 - 65 % 01/25/2025 6:32 AM EDT [facility] Lymphocytes % 28 24 - 43 % 01/25/2025 6:32 AM EDT [facility] Monocytes % 10 3 - 12 % 01/25/2025 6:32 AM EDT [facility] Eosinophils % 0(L) 1 - 4 % 01/25/2025 6:32 AM EDT [facility] Basophils % 0 0 - 2 % 01/25/2025 6:32 AM EDT [facility] Immature Granulocytes % 1(H) 0 % 01/25/2025 6:32 AM EDT [facility] Neutrophils Absolute 5.85 1.50 - 8.10 k/uL 01/25/2025 6:32 AM EDT [facility] Lymphocytes Absolute 2.62 1.10 - 3.70 k/uL 01/25/2025 6:32 AM EDT [facility] Monocytes Absolute 0.91 0.10 - 1.20 k/uL 01/25/2025 6:32 AM EDT [facility] Eosinophils Absolute <0.03 0.00 - 0.44 k/uL 01/25/2025 6:32 AM EDT [facility] Basophils Absolute 0.03 0.00 - 0.20 k/uL 01/25/2025 6:32 AM EDT [facility] Immature Granulocytes Absolute 0.05 0.00 - 0.30 k/uL 01/25/2025 6:32 AM EDT [facility] Blood BLOOD SPECIMEN / Unknown 01/25/2025 6:32 AM EDT 01/25/2025 7:07 AM EDT us Milind Corley MD HEMATOLOGY ORDERABLES Final Res ult [facility] [address] [place] [address], [facility] [phone] * (ABNORMAL) Basic Metabolic Panel w/ Reflex to MG (01/25/2025 6:32 AM EDT) Sodium 134(L) 136 - 145 mmol/L 01/25/2025 6:32 AM EDT [facility] Potassium 4.0 3.7 - 5.3 mmol/L 01/25/2025 6:32 AM EDT [facility] Chloride 101 98 - 107 mmol/L 01/25/2025 6:32 AM EDT [facility] CO2 22 20 - 31 mmol/L 01/25/2025 6:32 AM EDT [facility] Anion Gap 11 9 - 16 mmol/L 01/25/2025 6:32 AM EDT [facility] Glucose 87 74 - 99 mg/dL 01/25/2025 6:32 AM EDT [facility] BUN 16 8 - 23 mg/dL 01/25/2025 6:32 AM EDT [facility] Creatinine 0.7 0.7 - 1.2 mg/dL 01/25/2025 6:32 AM EDT [facility] Est, Glom Filt Rate >90 >60 mL/min/1. 73m2 01/25/2025 6:32 AM EDT [facility] Comment: These results are not intended for [...] - 10.4 mg/dL 01/25/2025 6:32 AM EDT [facility] Blood BLOOD SPECIMEN / Unknown 01/25/2025 6:32 AM EDT 01/25/2025 7:07 AM EDT us Milind Corley MD CHEMISTRY ORDERABLES Final Resu lt [facility] [address] [place] [address], [facility] [phone] * (ABNORMAL) CBC with Auto Differential (01/24/2025 3:16 PM EDT) WBC 6.3 3.5 - 11.3 k/uL 01/24/2025 3:16 PM EDT [facility] RBC 3.72(L) 4.21 - 5.77 m/uL 01/24/2025 3:16 PM EDT [facility] Hemoglobin 10.7(L) 13.0 - 17.0 g/dL 01/24/2025 3:16 PM EDT [facility] Hematocrit 33.1(L) 40.7 - 50.3 % 01/24/2025 3:16 PM EDT [facility] MCV 89.0 82.6 - 102.9 fL 01/24/2025 3:16 PM EDT [facility] MCH 28.8 25.2 - 33.5 pg 01/24/2025 3:16 PM EDT [facility] MCHC 32.3 28.4 - 34.8 g/dL 01/24/2025 3:16 PM EDT [facility] RDW 12.9 11.8 - 14.4 % 01/24/2025 3:16 PM EDT [facility] Platelets See Reflexed IPF Result 138 - 453 k/uL 01/24/2025 3:16 PM EDT [facility] Platelet, Fluorescence 8(LL) 138 - 453 k/uL 01/24/2025 3:16 PM EDT [facility] Platelet, Immature Fraction 30.2(H) 1.1 - 10.3 % 01/24/2025 3:16 PM EDT [facility] NRBC Automated 0.0 0.0 per 100 WBC 01/24/2025 3:16 PM EDT [facility] Neutrophils % 85(H) 36 - 65 % 01/24/2025 3:16 PM EDT [facility] Lymphocytes % 12(L) 24 - 43 % 01/24/2025 3:16 PM EDT [facility] Monocytes % 2(L) 3 - 12 % 01/24/2025 3:16 PM EDT [facility] Eosinophils % 0(L) 1 - 4 % 01/24/2025 3:16 PM EDT [facility] Basophils % 0 0 - 2 % 01/24/2025 3:16 PM EDT [facility] Immature Granulocytes % 1(H) 0 % 01/24/2025 3:16 PM EDT [facility] Neutrophils Absolute 5.39 1.50 - 8.10 k/uL 01/24/2025 3:16 PM EDT [facility] Lymphocytes Absolute 0.78(L) 1.10 - 3.70 k/uL 01/24/2025 3:16 PM EDT [facility] Monocytes Absolute 0.11 0.10 - 1.20 k/uL 01/24/2025 3:16 PM EDT [facility] Eosinophils Absolute <0.03 0.00 - 0.44 k/uL 01/24/2025 3:16 PM EDT [facility] Basophils Absolute <0.03 0.00 - 0.20 k/uL 01/24/2025 3:16 PM EDT [facility] Immature Granulocytes Absolute 0.03 0.00 - 0.30 k/uL 01/24/2025 3:16 PM EDT [facility] Blood BLOOD SPECIMEN / Unknown 01/24/2025 3:16 PM EDT 01/24/2025 3:19 PM EDT us Earlene Charles MD HEMATOLOGY ORDERABLES Final R esult [facility] [address] [place] [address], [facility] [phone] * (ABNORMAL) Hepatic Function Panel (01/24/2025 3:32 AM EDT) Albumin 3.1(L) 3.5 - 5.2 g/dL 01/24/2025 3:32 AM EDT [facility] Alkaline Phosphatase 61 40 - 129 U/L 01/24/2025 3:32 AM EDT [facility] ALT 28 10 - 50 U/L 01/24/2025 3:32 AM EDT [facility] AST 24 10 - 50 U/L 01/24/2025 3:32 AM EDT [facility] Total Bilirubin 0.6 0.0 - 1.2 mg/dL 01/24/2025 3:32 AM EDT [facility] Bilirubin, Direct 0.1 0.0 - 0.2 mg/dL 01/24/2025 3:32 AM EDT [facility] Bilirubin, Indirect 0.5 0.0 - 1.0 mg/dL 01/24/2025 3:32 AM EDT [facility] Total Protein 9.5(H) 6.6 - 8.7 g/dL 01/24/2025 3:32 AM EDT [facility] Globulin 6.4 g/dL 01/24/2025 3:32 AM EDT [facility] Albumin/Globulin Ratio 0.5(L) 1.0 - 2.5 01/24/2025 3:32 AM EDT [facility] 01/24/2025 3:32 AM EDT 01/24/2025 3:52 AM EDT us Milind Corley MD CHEMISTRY ORDERABLES Final Resu lt [facility] [address] [place] [address], [facility] [phone] * (ABNORMAL) CBC with Auto Differential (01/24/2025 3:32 AM EDT) WBC 8.6 3.5 - 11.3 k/uL 01/24/2025 3:32 AM EDT [facility] RBC 3.83(L) 4.21 - 5.77 m/uL 01/24/2025 3:32 AM EDT [facility] Hemoglobin 10.8(L) 13.0 - 17.0 g/dL 01/24/2025 3:32 AM EDT [facility] Hematocrit 34.8(L) 40.7 - 50.3 % 01/24/2025 3:32 AM EDT [facility] MCV 90.9 82.6 - 102.9 fL 01/24/2025 3:32 AM EDT [facility] MCH 28.2 25.2 - 33.5 pg 01/24/2025 3:32 AM EDT [facility] MCHC 31.0 28.4 - 34.8 g/dL 01/24/2025 3:32 AM EDT [facility] RDW 13.0 11.8 - 14.4 % 01/24/2025 3:32 AM EDT [facility] Platelets See Reflexed IPF Result 138 - 453 k/uL 01/24/2025 3:32 AM EDT [facility] Platelet, Fluorescence 6(LL) 138 - 453 k/uL 01/24/2025 3:32 AM EDT [facility] Platelet, Immature Fraction 25.9(H) 1.1 - 10.3 % 01/24/2025 3:32 AM EDT [facility] NRBC Automated 0.0 0.0 per 100 WBC 01/24/2025 3:32 AM EDT [facility] Neutrophils % 70(H) 36 - 65 % 01/24/2025 3:32 AM EDT [facility] Lymphocytes % 21(L) 24 - 43 % 01/24/2025 3:32 AM EDT [facility] Monocytes % 8 3 - 12 % 01/24/2025 3:32 AM EDT [facility] Eosinophils % 0(L) 1 - 4 % 01/24/2025 3:32 AM EDT [facility] Basophils % 0 0 - 2 % 01/24/2025 3:32 AM EDT [facility] Immature Granulocytes % 1(H) 0 % 01/24/2025 3:32 AM EDT [facility] Neutrophils Absolute 6.03 1.50 - 8.10 k/uL 01/24/2025 3:32 AM EDT [facility] Lymphocytes Absolute 1.79 1.10 - 3.70 k/uL 01/24/2025 3:32 AM EDT [facility] Monocytes Absolute 0.72 0.10 - 1.20 k/uL 01/24/2025 3:32 AM EDT [facility] Eosinophils Absolute <0.03 0.00 - 0.44 k/uL 01/24/2025 3:32 AM EDT [facility] Basophils Absolute 0.03 0.00 - 0.20 k/uL 01/24/2025 3:32 AM EDT [facility] Immature Granulocytes Absolute 0.05 0.00 - 0.30 k/uL 01/24/2025 3:32 AM EDT [facility] Blood BLOOD SPECIMEN / Unknown 01/24/2025 3:32 AM EDT 01/24/2025 3:52 AM EDT us Milind Corley MD HEMATOLOGY ORDERABLES Final Res ult [facility] [address] [place] [address], [facility] [phone] * (ABNORMAL) Basic Metabolic Panel w/ Reflex to MG (01/24/2025 3:32 AM EDT) Sodium 133(L) 136 - 145 mmol/L 01/24/2025 3:32 AM EDT [facility] Potassium 4.2 3.7 - 5.3 mmol/L 01/24/2025 3:32 AM EDT [facility] Comment: Specimen hemolysis has exceeded the interference as defined by Aidan. Value may be falsely increased. Suggest recollection if clinically indicated. Chloride 104 98 - 107 mmol/L 01/24/2025 3:32 AM EDT [facility] CO2 20 20 - 31 mmol/L 01/24/2025 3:32 AM EDT [facility] Anion Gap 9 9 - 16 mmol/L 01/24/2025 3:32 AM EDT [facility] Glucose 97 74 - 99 mg/dL 01/24/2025 3:32 AM EDT [facility] BUN 21 8 - 23 mg/dL 01/24/2025 3:32 AM EDT [facility] Creatinine 0.5(L) 0.7 - 1.2 mg/dL 01/24/2025 3:32 AM EDT [facility] Est, Glom Filt Rate >90 >60 mL/min/1. 73m2 01/24/2025 3:32 AM EDT [facility] Comment: These results are not intended for [...] - 10.4 mg/dL 01/24/2025 3:32 AM EDT [facility] Blood BLOOD SPECIMEN / Unknown 01/24/2025 3:32 AM EDT 01/24/2025 3:52 AM EDT us Milind Corley MD CHEMISTRY ORDERABLES Final Resu lt [facility] [address] [place] [address], [facility] [phone] * (ABNORMAL) CBC with Auto Differential (01/23/2025 6:12 PM EDT) WBC 6.2 3.5 - 11.3 k/uL 01/23/2025 6:12 PM EDT [facility] RBC 3.78(L) 4.21 - 5.77 m/uL 01/23/2025 6:12 PM EDT [facility] Hemoglobin 10.9(L) 13.0 - 17.0 g/dL 01/23/2025 6:12 PM EDT [facility] Hematocrit 33.6(L) 40.7 - 50.3 % 01/23/2025 6:12 PM EDT [facility] MCV 88.9 82.6 - 102.9 fL 01/23/2025 6:12 PM EDT [facility] MCH 28.8 25.2 - 33.5 pg 01/23/2025 6:12 PM EDT [facility] MCHC 32.4 28.4 - 34.8 g/dL 01/23/2025 6:12 PM EDT [facility] RDW 13.1 11.8 - 14.4 % 01/23/2025 6:12 PM EDT [facility] Platelets See Reflexed IPF Result 138 - 453 k/uL 01/23/2025 6:12 PM EDT [facility] Platelet, Fluorescence 3(LL) 138 - 453 k/uL 01/23/2025 6:12 PM EDT [facility] Platelet, Immature Fraction 48.4(H) 1.1 - 10.3 % 01/23/2025 6:12 PM EDT [facility] NRBC Automated 0.0 0.0 per 100 WBC 01/23/2025 6:12 PM EDT [facility] Neutrophils % 83(H) 36 - 65 % 01/23/2025 6:12 PM EDT [facility] Lymphocytes % 12(L) 24 - 43 % 01/23/2025 6:12 PM EDT [facility] Monocytes % 4 3 - 12 % 01/23/2025 6:12 PM EDT [facility] Eosinophils % 0(L) 1 - 4 % 01/23/2025 6:12 PM EDT [facility] Basophils % 0 0 - 2 % 01/23/2025 6:12 PM EDT [facility] Immature Granulocytes % 1(H) 0 % 01/23/2025 6:12 PM EDT [facility] Neutrophils Absolute 5.15 1.50 - 8.10 k/uL 01/23/2025 6:12 PM EDT [facility] Lymphocytes Absolute 0.76(L) 1.10 - 3.70 k/uL 01/23/2025 6:12 PM EDT [facility] Monocytes Absolute 0.22 0.10 - 1.20 k/uL 01/23/2025 6:12 PM EDT [facility] Eosinophils Absolute <0.03 0.00 - 0.44 k/uL 01/23/2025 6:12 PM EDT [facility] Basophils Absolute <0.03 0.00 - 0.20 k/uL 01/23/2025 6:12 PM EDT [facility] Immature Granulocytes Absolute 0.03 0.00 - 0.30 k/uL 01/23/2025 6:12 PM EDT [facility] Blood BLOOD SPECIMEN / Unknown 01/23/2025 6:12 PM EDT 01/23/2025 6:15 PM EDT Pérez Flynn MD HEMATOL OGY ORDERABLES Final Result [facility] [address] [place] [address], [facility] [phone] * Serotonin Rel Assay (01/23/2025 10:21 AM EDT) Pathologist [facility] Heparin Type Porcine Heparin 01/23/2025 10:21 AM EDT [facility] Heparin Platelet Antibody Negative Negative 01/23/2025 10:21 AM EDT [facility] KIM Porc Low Dose 3 % 025 10:21 AM EDT [facility] Porc High Dose 0 % 2024 10:21 AM EDT [facility] SEROTONIN RELEASING ASSAY See Note 01/23/2025 10:21 AM EDT [facility] Comment: (NOTE) This patient's [...] regarding diagnosis of HIT is available at [email or web address] INTERPRETIVE INFORMATION: KIM, Unfractionated Heparin This test was developed and its performance characteristics determined by [facility]. It has not been cleared or approved by the [place] Food and Drug Administration. This test was performed in a CLIA certified laboratory and is intended for clinical purposes. Performed By: [facility] [address] [place] [id number] Etl Analyst Developer: Mariusz Melo MD, PhD CLIA Number: [id number] 01/23/2025 10:2 1 AM EDT 01/23/2025 10:23 AM EDT us Uzair Wilson MD CHEMISTRY ORDERABLES Yamile ballard Result [place] [id number] [place] [id number], [facility] [phone] [address], [facility] [phone] * PREVIOUS SPECIMEN (01/23/2025 10:21 AM EDT) 01/23/2025 10:2 1 AM EDT 01/23/2025 10:23 AM EDT us Uzair Wilson MD CHEMISTRY ORDERABLES [place] [address], [facility] [phone] * (ABNORMAL) Federico Herring Panel (01/23/2025 9:02 AM EDT) Pathologist [facility] EBV VCA,IgG >750.0(H) 0.0 - 21.9 U/mL 01/23/2025 9:02 AM EDT [facility] Comment: (NOTE) INTERPRETIVE INFORMATION: Federico-Herring Virus Antibody to Viral Capsid Antigen, IgG 17.9 U/mL or less.......Not Detected 18.0-21.9 U/mL..........Indeterminate - Repeat testing in 10-14 days may be helpful. 22.0 U/mL or greater....Detected EBV VCA,IgM 26.5 0.0 - 43.9 U/mL 01/23/2025 9:02 AM EDT [facility] Comment: (NOTE) INTERPRETIVE INFORMATION: Federico-Herring Virus Antibody to Viral Capsid Antigen, IgM 35.9 U/mL or less.......Not Detected 36.0-43.9 U/mL..........Indeterminate - Repeat testing in 10-14 days may be helpful. 44.0 U/mL or greater....Detected EBV Nuclear Ag Ab >600.0(H) 0.0 - 21.9 U/mL 01/23/2025 9:02 AM EDT [facility] Comment: (NOTE) INTERPRETIVE INFORMATION: Federico-Herring Virus Antibody to Nuclear Antigen, IgG 17.9 U/mL or less.......Not Detected 18.0-21.9 U/mL..........Indeterminate - Repeat testing in 10-14 days may be helpful. 22.0 U/mL or greater....Detected EBV Early Antigen Ab, IgG >150.0(H) 0.0 - 10.9 U/mL 01/23/2025 9:02 AM EDT [facility] Comment: (NOTE) INTERPRETIVE INFORMATION: Federico-Herring Virus Antibody to Early D Antigen (EA-D), IgG 8.9 U/mL or less........Not Detected 9.0-10.9 U/mL...........Indeterminate - Repeat testing in 10-14 days may be helpful. 11.0 U/mL or greater....Detected Performed By: [facility] [address] [place] [address] Etl Analyst Developer: Mariusz Melo MD, PhD CLIA Number: [id number] 01/23/2025 9:02 AM EDT 01/23/2025 9:06 AM EDT Pérez Flynn MD BREAKER LAYER RY ORDERABLES Final Result Performing Organization Address [facility]/[place] [address], [facility] [phone] [phone] * Immunotyping, Serum (01/23/2025 9:02 AM EDT) Pathologist [facility] ITYP Interpretation Immunotyping is negative for monoclonal immunoglobulin. 01/23/2025 9:02 AM EDT [facility] Pathologist Review ELECTRONICALLY SIGNED. PILLO ELY M.D. 01/23/2025 9:02 AM EDT [facility] 01/23/2025 9:02 AM EDT 01/23/2025 9:06 AM EDT Pérez Flynn MD BREAKER LAYER RY ORDERABLES Final Result Performing Organization Address [facility] [place] [address], [facility] [phone] * (ABNORMAL) Cytomegalovirus Ab,IGG,IGM (01/23/2025 9:02 AM EDT) Pathologist [facility] CMV IgG 744.0(H) <0.5 01/23/2025 9:02 AM EDT [facility] Comment: Reference Range: <0.5 Non Reactive 0.5 [...] IgM 0.2 <0.7 01/23/2025 9:02 AM EDT [facility] Comment: Reference Range: <0.7 Non Reactive 0.7 [...] 01/23/2025 9:06 AM EDT Pérez Flynn MD BREAKER LAYER RY ORDERABLES Final Result [facility] [address] [place] [address] * (ABNORMAL) Electrophoresis Protein, Serum (01/23/2025 9:02 AM EDT) Total Protein 8.3 6.6 - 8.7 g/dL 01/23/2025 9:02 AM EDT [facility] Albumin (calculated) 3.1(L) 3.2 - 5.2 g/dL 01/23/2025 9:02 AM EDT [facility] Albumin % 37(L) 56 - 66 % 01/23/2025 9:02 AM EDT [facility] Mkhkq-5-Kkgfggdg 0.4 0.1 - 0.4 g/dL 01/23/2025 9:02 AM EDT [facility] Alpha 1 % 5 3 - 5 % 01/23/2025 9:02 AM EDT [facility] Packl-1-Ytoltmri 1.0(H) 0.5 - 0.9 g/dL 01/23/2025 9:02 AM EDT [facility] Alpha 2 % 11 7 - 12 % 01/23/2025 9:02 AM EDT [facility] Beta Globulin 0.8 0.7 - 1.4 g/dL 01/23/2025 9:02 AM [employer] [employer] Beta Percent 10 8 - 13 % 01/23/2025 9:02 AM EDT [facility] Gamma Globulin 3.1(H) 0.5 - 1.5 g/dL 01/23/2025 9:02 AM [employer] [facility] Gamma Globulin % 37(H) 11 - 19 % 01/23/2025 9:02 AM EDT [facility] Total Prot. Sum 8.4(H) 6.3 - 8.2 g/dL 01/23/2025 9:02 AM [facility] Total Prot. Sum,% 100 98 - 102 % 01/23/2025 9:02 AM [facility] Protein Electrophoresis, Serum Albumin is decreased. May be observed with hepatic diseases, 01/23/2025 9:02 AM [facility] Comment: proteinuria, malnutrition, acute phase response, and [...] SIGNED. PILLO ELY M.D. 01/23/2025 9:02 AM [facility] BLOOD SPECIMEN / Unknown 01/23/2025 9:02 AM EDT 01/23/2025 9:06 AM EDT Pérez Flynn MD IMMUNOL OGY ORDERABLES Final Result Performing Organization Address City/[facility]/ZIP Co de Phone Number [address] [phone] * Vitamin B12 & Folate (01/23/2025 9:02 AM EDT) Pathologist [facility] Vitamin B-12 624 232 - 1245 pg/mL 01/23/2025 9:02 AM EDT [facility] Folate 11.7 4.8 - 24.2 ng/mL 01/23/2025 9:02 AM EDT [facility] Blood BLOOD SPECIMEN / Unknown 01/23/2025 9:02 AM EDT 01/23/2025 9:06 AM EDT Pérez Flynn MD BREAKER LAYER RY ORDERABLES Final Result Performing Organization Address [facility] [place] [address], [facility] [phone] * [id number] ACTIVITY (01/23/2025 9:02 AM EDT) Pathologist [facility] [id number] Activity >100 >=61 % 025 9:02 AM EDT [facility] Comment: (NOTE) INTERPRETIVE INFORMATION: [id number] Activity OAPYUB95 levels of less than 10 percent may be associated with either inherited (Tomeka-Abel Syndrome) or acquired thrombotic thrombocytopenic purpura (TTP). A variety of medical conditions may result in a mild to moderate deficiency of CZWAEZ68 activity. Recent plasma exchange therapy may raise the observed SVTTHG42 activity. This test was developed and its performance characteristics determined by [facility]. It has not been cleared or approved by the [place] Food and Drug Administration. This test was performed in a CLIA certified laboratory and is intended for clinical purposes. Performed By: [facility] [address] [place] [address] Etl Analyst Developer: Mariusz Melo MD, PhD CLIA Number: [id number] Blood BLOOD SPECIMEN / Unknown 01/23/2025 9:02 AM EDT 01/23/2025 9:06 AM EDT Pérez Flynn MD BREAKER LAYER RY ORDERABLES Final Result [facility] [address] [place] [address], [facility] [phone] [facility] [address] [place], [place] [address] [phone] * (ABNORMAL) CBC with Auto Differential (01/23/2025 4:02 AM EDT) WBC 7.5 3.5 - 11.3 k/uL 01/23/2025 4:02 AM EDT [facility] RBC 4.12(L) 4.21 - 5.77 m/uL 01/23/2025 4:02 AM EDT [facility] Hemoglobin 11.8(L) 13.0 - 17.0 g/dL 01/23/2025 4:02 AM EDT [facility] Hematocrit 36.1(L) 40.7 - 50.3 % 01/23/2025 4:02 AM EDT [facility] MCV 87.6 82.6 - 102.9 fL 01/23/2025 4:02 AM EDT [facility] MCH 28.6 25.2 - 33.5 pg 01/23/2025 4:02 AM EDT [facility] MCHC 32.7 28.4 - 34.8 g/dL 01/23/2025 4:02 AM EDT [facility] RDW 12.8 11.8 - 14.4 % 01/23/2025 4:02 AM EDT [facility] Platelets See Reflexed IPF Result 138 - 453 k/uL 01/23/2025 4:02 AM EDT [facility] Platelet, Fluorescence <2(LL) 138 - 453 k/uL 01/23/2025 4:02 AM EDT [facility] Platelet, Immature Fraction 28.7(H) 1.1 - 10.3 % 01/23/2025 4:02 AM EDT [facility] NRBC Automated 0.0 0.0 per 100 WBC 01/23/2025 4:02 AM EDT [facility] Neutrophils % 63 36 - 65 % 01/23/2025 4:02 AM EDT [facility] Lymphocytes % 19(L) 24 - 43 % 01/23/2025 4:02 AM EDT [facility] Monocytes % 17(H) 3 - 12 % 01/23/2025 4:02 AM EDT [facility] Eosinophils % 0(L) 1 - 4 % 01/23/2025 4:02 AM EDT [facility] Basophils % 0 0 - 2 % 01/23/2025 4:02 AM EDT [facility] Immature Granulocytes % 1(H) 0 % 01/23/2025 4:02 AM EDT [facility] Neutrophils Absolute 4.73 1.50 - 8.10 k/uL 01/23/2025 4:02 AM EDT [facility] Lymphocytes Absolute 1.45 1.10 - 3.70 k/uL 01/23/2025 4:02 AM EDT [facility] Monocytes Absolute 1.24(H) 0.10 - 1.20 k/uL 01/23/2025 4:02 AM EDT [facility] Eosinophils Absolute <0.03 0.00 - 0.44 k/uL 01/23/2025 4:02 AM EDT [facility] Basophils Absolute <0.03 0.00 - 0.20 k/uL 01/23/2025 4:02 AM EDT [facility] Immature Granulocytes Absolute 0.06 0.00 - 0.30 k/uL 01/23/2025 4:02 AM EDT [facility] Blood BLOOD SPECIMEN / Unknown 01/23/2025 4:02 AM EDT 01/23/2025 4:31 AM EDT us Milind Corley MD HEMATOLOGY ORDERABLES Final Res ult [facility] [place] [address], [facility] [phone] * (ABNORMAL) Basic Metabolic Panel w/ Reflex to MG (01/23/2025 4:02 AM EDT) Sodium 133(L) 136 - 145 mmol/L 01/23/2025 4:02 AM EDT [facility] Potassium 3.7 3.7 - 5.3 mmol/L 01/23/2025 4:02 AM EDT [facility] Chloride 102 98 - 107 mmol/L 01/23/2025 4:02 AM EDT [facility] CO2 19(L) 20 - 31 mmol/L 01/23/2025 4:02 AM EDT [facility] Anion Gap 12 9 - 16 mmol/L 01/23/2025 4:02 AM EDT [facility] Glucose 88 74 - 99 mg/dL 01/23/2025 4:02 AM EDT [facility] BUN 20 8 - 23 mg/dL 01/23/2025 4:02 AM EDT [facility] Creatinine 0.6(L) 0.7 - 1.2 mg/dL 01/23/2025 4:02 AM EDT [facility] Est, Glom Filt Rate >90 >60 mL/min/1. 73m2 01/23/2025 4:02 AM EDT [facility] Comment: These results are not intended for [...] - 10.4 mg/dL 01/23/2025 4:02 AM EDT [facility] BLOOD SPECIMEN / Unknown 01/23/2025 4:02 AM EDT 01/23/2025 4:31 AM EDT us Milind Corley MD CHEMISTRY ORDERABLES Final Resu lt [facility] [address] [place] [address], [facility] [phone] * US LIVER SPLEEN (01/22/2025 9:17 PM [...] 2. Normal spleen. us Milind Corley MD IMG US ORDERABLES Final Result * CT CHEST [...] for comparison. HISTORY: ORDERING SYSTEM PROVIDED HISTORY: [facility] evalatea for malignancy TECHNOLOGIST PROVIDED HISTORY: [facility] evalaute for malignancy FINDINGS: Mediastinum: Thoracic aorta [...] for comparison. HISTORY: ORDERING SYSTEM PROVIDED HISTORY: [facility] evalaute for malignancy TECHNOLOGIST PROVIDED HISTORY: itp [...] atherosclerosis. 4. Hepatic steatosis. Robel Mccormack MD [facility] CT ORDERABLES Final Result * (ABNORMAL) CBC with Auto Differential (01/22/2025 5:41 PM EDT) WBC 5.1 3.5 - 11.3 k/uL 01/22/2025 5:41 PM EDT [facility] RBC 4.87 4.21 - 5.77 m/uL 01/22/2025 5:41 PM EDT [facility] Hemoglobin 13.9 13.0 - 17.0 g/dL 01/22/2025 5:41 PM EDT [facility] Hematocrit 42.8 40.7 - 50.3 % 01/22/2025 5:41 PM EDT [facility] MCV 87.9 82.6 - 102.9 fL 01/22/2025 5:41 PM ED [facility] MCH 28.5 25.2 - 33.5 pg 01/22/2025 5:41 PM EDT [facility] MCHC 32.5 28.4 - 34.8 g/dL 01/22/2025 5:41 PM EDT [facility] RDW 13.0 11.8 - 14.4 % 01/22/2025 5:41 PM EDT [facility] Platelets See Reflexed IPF Result 138 - 453 k/uL 01/22/2025 5:41 PM EDT [facility] Platelet, Fluorescence <2(LL) 138 - 453 k/uL 01/22/2025 5:41 PM EDT [facility] Platelet, Immature Fraction 0.0(L) 1.1 - 10.3 % 01/22/2025 5:41 PM EDT [facility] NRBC Automated 0.0 0.0 per 100 WBC 01/22/2025 5:41 PM EDT [facility] Neutrophils % 78(H) 36 - 65 % 01/22/2025 5:41 PM EDT [facility] Lymphocytes % 15(L) 24 - 43 % 01/22/2025 5:41 PM EDT [facility] Monocytes % 6 3 - 12 % 01/22/2025 5:41 PM EDT [facility] Eosinophils % 0(L) 1 - 4 % 01/22/2025 5:41 PM EDT [facility] Basophils % 0 0 - 2 % 01/22/2025 5:41 PM EDT [facility] Immature Granulocytes % 1(H) 0 % 01/22/2025 5:41 PM EDT [facility] Neutrophils Absolute 4.02 1.50 - 8.10 k/uL 01/22/2025 5:41 PM EDT [facility] Lymphocytes Absolute 0.75(L) 1.10 - 3.70 k/uL 01/22/2025 5:41 PM EDT [facility] Monocytes Absolute 0.33 0.10 - 1.20 k/uL 01/22/2025 5:41 PM EDT [facility] Eosinophils Absolute <0.03 0.00 - 0.44 k/uL 01/22/2025 5:41 PM EDT [facility] Basophils Absolute <0.03 0.00 - 0.20 k/uL 01/22/2025 5:41 PM EDT [facility] Immature Granulocytes Absolute 0.03 0.00 - 0.30 k/uL 01/22/2025 5:41 PM EDT [facility] BLOOD SPECIMEN / Unknown 01/22/2025 5:41 PM EDT 01/22/2025 6:05 PM EDT Robel Mccormack MD HEMATOLOGY ORDERABLES Final Res ult Performing Organization Address [facility] Co de Phone Number [facility] [address] [place] [address], [facility] [phone] * Hepatitis Panel, Acute (01/22/2025 12:17 PM EDT) Hepatitis B Surface Ag NONREACTIVE NONREACTIVE 01/22/2025 12:17 PM EDT [facility] Hepatitis C Ab NONREACTIVE NONREACTIVE 01/23/20 12:17 PM EDT [facility] Comment: The hepatitis C procedure used in [...] IgM NONREACTIVE NONREACTIVE 12/31 12:17 PM EDT [facility] Hep A IgM NONREACTIVE NONREACTIVE 01/22/2025 12:17 PM EDT [facility] Blood BLOOD SPECIMEN / Unknown 01/22/2025 12:17 PM EDT 01/22/2025 12:21 PM EDT Vitor Joseph MD IMMUNOLOGY ORDERABLES Final R esult Performing Organization Address City/Va Hospital/ZIP Co de Phone Number [facility] [address] [place] [address], [facility] [phone] * (ABNORMAL) TEG Global Hemostasis with Lysis (01/22/2025 12:17 PM EDT) Reaction Time TEG 14.7(H) 4.6 - 9.1 min 01/22/2025 12:17 PM EDT [facility] LY30(Lysis) TEG 0.0 0.0 - 2.6 % 01/22/2025 12:17 PM EDT [facility] MA(Max Clot) Rapid TEG <40.0(L) 52.0 - 70 mm 01/22/2025 12:17 PM EDT [facility] Fibrinogen, Functional TEG 39.8(H) 15.0 - 32.0 mm 01/22/2025 12:17 PM EDT [facility] BLOOD SPECIMEN / Unknown 01/22/2025 12:17 PM EDT 01/22/2025 12:22 PM EDT Vitor Joseph MD HEMATOLOGY ORDERABLES [place] [address], [facility] [phone] * Culture, Blood 1 (01/22/2025 12:13 PM EDT) Pathologist [facility] Specimen Description .BLOOD 01/22/2025 12:13 PM EDT [facility] Special Requests RH [id number] 01/22/2025 12:13 PM EDT [facility] Culture NO GROWTH 5 DAYS 01/22/2025 12:13 PM EDT [facility] BLOOD SPECIMEN / Unknown 01/22/2025 12:13 PM EDT 01/22/2025 12:23 PM EDT Vitor Joseph MD MICROBIOLOGY - GENERAL ORDERA BLES Final Result Performing Organization Address City/Va Hospital/[place] [address], [facility] [phone] * Culture, Blood 1 (01/22/2025 12:07 PM EDT) Specimen Description .BLOOD 01/22/2025 12:07 PM EDT [facility] Special Requests LH [id number] 01/22/2025 12:07 PM EDT [facility] Culture NO GROWTH 5 DAYS 01/22/2025 12:07 PM EDT [facility] BLOOD SPECIMEN / Unknown 01/22/2025 12:07 PM EDT 01/22/2025 12:24 PM EDT Vitor Joseph MD MICROBIOLOGY - GENERAL ORDERA BLES Final Result [facility] [address] [place] [address], [facility] [phone] * XR CHEST PORTABLE (01/22/2025 10:50 AM [...] - 100 mg/dL 01/22/2025 10:30 AM EDT [facility] 01/22/2025 10:3 0 AM EDT 01/22/2025 10:32 AM EDT Uzair Wilson MD POINT OF CARE TEST ORDERA BLES Final Result [facility] [address] [place] [address], [facility] [phone] * (ABNORMAL) Arterial Blood Gas, POC (01/22/2025 10:30 AM EDT) POC pH 7.511(H) 7.350 - 7.450 01/22/2025 10:30 AM EDT [facility] POC pCO2 27.3(L) 35.0 - 48.0 mm Hg 01/22/2025 10:30 AM EDT [facility] POC PO2 87.1 83.0 - 108.0 mm Hg 01/22/2025 10:30 AM EDT [facility] POC HCO3 21.9 21.0 - 28.0 mmol/L 01/22/2025 10:30 AM EDT [facility] Positive Base Excess, Art 0.2 0.0 - 3.0 mmol/L 01/22/2025 10:30 AM EDT [facility] POC O2 SAT 97.7 94.0 - 98.0 % 01/22/2025 10:30 AM EDT [facility] O2 Delivery Device Room Air 01/22/2025 10:30 AM EDT [facility] Jone Test POSITIVE 01/22/2025 10:30 AM EDT [facility] Sample Site Right Radial Artery 01/22/2025 10:30 AM EDT [facility] 01/22/2025 10:3 0 AM EDT 01/22/2025 10:32 AM EDT Uzair Wilson MD POINT OF CARE TEST ORDERA BLES Final Result [facility] [address] [place] [address], [facility] [phone] * (ABNORMAL) ONOFRE profile (01/22/2025 9:34 AM EDT) Anti-Orozco 1.6 <7.0 U/mL 01/22/2025 9:34 AM EDT [facility] Comment: Reference Range: <7.0 Negative 7.0-10.0 Equivocal >10.0 Positive Ribosomal P Ab 7.9(H) <7.0 U/mL 01/22/2025 9:34 AM EDT [facility] Comment: Reference Range: <7.0 Negative 7.0-10.0 Equivocal >10.0 Positive RNA Polymerase III Antibodies, IgG 1.5 <7.0 U/mL 01/22/2025 9:34 AM [facility] Comment: Reference Range: <7.0 Negative 7.0-10.0 Equivocal >10.0 Positive Anti-Scleroderm a 3.0 <7.0 U/mL 01/22/2025 9:34 AM [facility] Comment: Reference Range: <7.0 Negative 7.0-10.0 Equivocal >10.0 Positive Anti-RNP70 1.7 <7.0 U/mL 01/22/2025 9:34 AM [facility] Comment: Reference Range: <7.0 Negative 7.0-10.0 Equivocal >10.0 Positive Anti-U1RNP 3.1 <5.0 U/mL 01/22/2025 9:34 AM EDT [facility] Comment: Reference Range: <5.0 Negative 5.0-10.0 Equivocal >10.0 Positive SSA 52 (RO) (DAVID) AB, IGG 0.9 <7.0 U/mL 01/22/2025 9:34 AM EDT [facility] Comment: Reference Range: <7.0 Negative 7.0-10.0 Equivocal >10.0 Positive SSA 60 (RO) (DAVID) AB, IGG 1.0 <7.0 U/mL 01/22/2025 9:34 AM [facility] Comment: Reference Range: <7.0 Negative 7.0-10.0 Equivocal >10.0 Positive Anti SSB 0.7 <7.0 U/mL 01/22/2025 9:34 AM EDT [facility] Comment: Reference Range: <7.0 Negative 7.0-10.0 Equivocal >10.0 Positive Anti VAL-1 0.7 <7.0 U/mL 01/22/2025 9:34 AM EDT [facility] Comment: Reference Range: <7.0 Negative 7.0-10.0 Equivocal >10.0 Positive Anti-Centromere 1.0 <7.0 U/mL 9:34 AM EDT [facility] Comment: Reference Range: <7.0 Negative 7.0-10.0 Equivocal >10.0 Positive 01/22/2025 9:34 AM EDT 01/22/2025 9:46 AM EDT Pérez Flynn MD [facility] OGY ORDERABLES Final Result [facility] [address] [phone] * (ABNORMAL) D-Dimer, Quantitative (01/22/2025 9:34 AM EDT) [facility] D-Dimer, Quant 2.86(H) 0.00 - 0.57 ug/mL FEU 01/22/2025 9:34 AM EDT [facility] Comment: When combined with a low clinical [...] OGY ORDERABLES Final Result Performing Organization Address [facility] de Phone Number [facility] [address] [place] [address], [facility] [phone] * (ABNORMAL) Heparin-Induced Platelet Antibody (01/22/2025 9:34 AM EDT) [facility] Heparin Induced Plt Ab 1.247(H) 0.000 - 0.400 O.D. 01/22/2025 9:34 AM EDT [facility] Comment: O.D. Interpretation: <=0.400 Negative > 0.400 Positive 01/22/2025 9:34 AM EDT 01/22/2025 9:46 AM EDT Pérez Flynn MD HEMATOL OGY ORDERABLES Final Result Performing Organization Address [facility] de Phone Number [facility] [address] [place] [address], [facility] [phone] * (ABNORMAL) CBC with Auto Differential (01/22/2025 9:34 AM EDT) [facility] WBC 7.2 3.5 - 11.3 k/uL 01/22/2025 9:34 AM EDT [facility] RBC 4.67 4.21 - 5.77 m/uL 01/22/2025 9:34 AM EDT [facility] Hemoglobin 13.4 13.0 - 17.0 g/dL 01/22/2025 9:34 AM EDT [facility] Hematocrit 40.9 40.7 - 50.3 % 01/22/2025 9:34 AM EDT [facility] MCV 87.6 82.6 - 102.9 fL 01/22/2025 9:34 AM EDT [facility] MCH 28.7 25.2 - 33.5 pg 01/22/2025 9:34 AM EDT [facility] MCHC 32.8 28.4 - 34.8 g/dL 01/22/2025 9:34 AM EDT [facility] RDW 12.9 11.8 - 14.4 % 01/22/2025 9:34 AM EDT [facility] Platelets See Reflexed IPF Result 138 - 453 k/uL 01/22/2025 9:34 AM EDT [facility] Platelet, Fluorescence 2(LL) 138 - 453 k/uL 01/22/2025 9:34 AM EDT [facility] Platelet, Immature Fraction 4.8 1.1 - 10.3 % 01/22/2025 9:34 AM EDT [facility] NRBC Automated 0.0 0.0 per 100 WBC 01/22/2025 9:34 AM EDT [facility] Neutrophils % 66(H) 36 - 65 % 01/22/2025 9:34 AM EDT [facility] Lymphocytes % 22(L) 24 - 43 % 01/22/2025 9:34 AM EDT [facility] Monocytes % 11 3 - 12 % 01/22/2025 9:34 AM EDT [facility] Eosinophils % 1 1 - 4 % 01/22/2025 9:34 AM EDT [facility] Basophils % 0 0 - 2 % 01/22/2025 9:34 AM EDT [facility] Immature Granulocytes % 0 0 % 01/22/2025 9:34 AM EDT [facility] Neutrophils Absolute 4.73 1.50 - 8.10 k/uL 01/22/2025 9:34 AM EDT [facility] Lymphocytes Absolute 1.57 1.10 - 3.70 k/uL 01/22/2025 9:34 AM EDT [facility] Monocytes Absolute 0.79 0.10 - 1.20 k/uL 01/22/2025 9:34 AM EDT [facility] Eosinophils Absolute 0.04 0.00 - 0.44 k/uL 01/22/2025 9:34 AM EDT [facility] Basophils Absolute 0.03 0.00 - 0.20 k/uL 01/22/2025 9:34 AM EDT [facility] Immature Granulocytes Absolute 0.03 0.00 - 0.30 k/uL 01/22/2025 9:34 AM EDT [facility] 01/22/2025 9:34 AM EDT 01/22/2025 9:46 AM EDT Pérez Flynn MD HEMATOL OGY ORDERABLES Final Result [facility] [address] [place] [address], [facility] [phone] * (ABNORMAL) Basic Metabolic Panel w/ Reflex to MG (01/22/2025 9:34 AM EDT) Sodium 135(L) 136 - 145 mmol/L 01/22/2025 9:34 AM EDT [facility] Potassium 3.9 3.7 - 5.3 mmol/L 01/22/2025 9:34 AM EDT [facility] Chloride 101 98 - 107 mmol/L 01/22/2025 9:34 AM EDT [facility] CO2 19(L) 20 - 31 mmol/L 01/22/2025 9:34 AM EDT [facility] Anion Gap 15 9 - 16 mmol/L 01/22/2025 9:34 AM EDT [facility] Glucose 111(H) 74 - 99 mg/dL 01/22/2025 9:34 AM EDT [facility] BUN 13 8 - 23 mg/dL 01/22/2025 9:34 AM EDT [facility] Creatinine 0.6(L) 0.7 - 1.2 mg/dL 01/22/2025 9:34 AM EDT [facility] Est, Glom Filt Rate >90 >60 mL/min/1. 73m2 01/22/2025 9:34 AM EDT [facility] Comment: These results are not intended for [...] - 10.4 mg/dL 01/22/2025 9:34 AM EDT [facility] 01/22/2025 9:34 AM EDT 01/22/2025 9:46 AM EDT Pérez Flynn MD [employer] RY ORDERABLES Final Result Performing Organization Address [facility] Co de Phone Number [facility] [address] [place] [address] * (ABNORMAL) ONOFRE SCREEN WITH REFLEX (01/22/2025 9:34 AM EDT) ONOFRE POSITIVE( A) NEGATIVE 01/22/2025 9:34 AM EDT [facility] DAVID Antibodies Screen 0.5 <0.7 U/mL 01/22/2025 9:34 AM EDT [facility] Comment: Reference Range: <0.7 Negative 0.7-1.0 Equivocal >1.0 Positive DAVDI Screen includes U1RNP,RNP70,Sm,Ro(SS-A),La(SS-B),CENP,Scl-70,Val-1 Anti ds DNA 35.0(H) <10.0 IU/mL 01/22/2025 9:34 AM EDT [facility] Comment: Reference Range: <10.0 Negative 10.0-15.0 Equivocal >15.0 Positive BLOOD SPECIMEN / Unknown 01/22/2025 9:34 AM EDT 01/22/2025 9:46 AM EDT Pérez Flynn MD [employer] ORDERABLES Final Result Performing Organization Address [facility]/ZIP Co de Phone Number [facility] [address] [place] [address] * DIRECT ANTIGLOBULIN TEST (01/22/2025 9:34 AM EDT) FELIPE, Polyspecific NEGATIVE 01/22/2025 9:34 AM EDT [facility] BLOOD SPECIMEN / Unknown 01/22/2025 9:34 AM EDT 01/22/2025 9:47 AM EDT Pérez Flynn MD BLOOD B ANK TEST ORDERABLES Final Result Performing Organization Address [facility]/ZIP Co de Phone Number [facility] [address] [place] [address], [facility] [phone] * (ABNORMAL) Fibrin [employer] Products (01/22/2025 9:34 AM EDT) FDP >5(H) <5 ug/mL 01/22/2025 9:34 AM EDT [facility] Comment:<20 Blood BLOOD SPECIMEN / Unknown 01/22/2025 9:34 AM EDT 01/22/2025 9:46 AM EDT Pérez Flynn MD HEMATOL OGY ORDERABLES Final Result Performing Organization Address [facility] Co de Phone Number [facility] [address] [place] [address], [facility] [phone] * (ABNORMAL) Fibrinogen (01/22/2025 9:34 AM EDT) Fibrinogen 681(H) 203 - 521 mg/dL 01/22/2025 9:34 AM EDT [facility] Blood BLOOD SPECIMEN / Unknown 01/22/2025 9:34 AM EDT 01/22/2025 9:46 AM EDT Pérez Flynn MD HEMATOL OGY ORDERABLES Final Result Performing Organization Address City/[facility] Hospital/ZIP Co de Phone Number [facility] [address] [phone] * Procalcitonin (01/22/2025 9:34 AM EDT) Procalcitonin 0.06 0.00 - 0.09 ng/mL 01/22/2025 9:34 AM EDT [facility] Comment: Suspected Sepsis: <0.50 ng/mL Low likelihood [...] entered into the Change in Procalcitonin Calculator (www.nvxzae-wmi-eabhxjkbrm.com) to determine the patient's Mortality Risk Prognosis In healthy neonates, plasma Procalcitonin (PCT) concentrations increase gradually after , reaching peak values at about 24 hours of age then decrease to normal values below 0.5 ng/mL by 48-72 hours of age. Blood BLOOD SPECIMEN / Unknown 01/22/2025 9:34 AM EDT 01/22/2025 9:46 AM EDT Pérez Flynn MD BRE[employer] LAY[employer] RY ORDERABLES Final Result [facility] [address] [place] [address], [facility] [phone] * HIV Screen (01/22/2025 9:34 AM EDT) Pathologist [facility] HIV Ag/Ab NONREACTIVE NONREACTIVE 01/22/2025 9:34 AM EDT [facility] Comment: No laboratory evidence of HIV infection. If acute HIV infection is suspected, consider testing for HIV-1 RNA. BLOOD SPECIMEN / Unknown 01/22/2025 9:34 AM EDT 01/22/2025 9:46 AM EDT Pérez Flynn MD IMMUNOL OGY ORDERABLES Final Result Performing Organization Address [facility] Co de Phone Number [facility] [address] [place] [address], [facility] [phone] * MRSA DNA Probe, Nasal (01/22/2025 4:56 AM EDT) Specimen Description .NASAL SWAB 01/22/2025 4:56 AM EDT [facility] MRSA, DNA, Nasal NEGATIVE NEGATIVE 01/23/20 4:56 AM EDT [facility] Comment: NEGATIVE: MRSA DNA not detected by nucleic acid amplification. Results should be used as an adjunct to nosocomial control efforts to identify patients needing enhanced precautions. The test is not intended to identify patients with staphylococcal infections. Results should not be used to guide or monitor treatment for MRSA infections. Nasal 01/22/2025 4:56 AM EDT 01/22/2025 4:56 AM EDT Milind Corley MD MICROBIOLOGY - GENERAL ORDERABL ES Final Result Performing Organization Address [facility] Co de Phone Number [facility] [address] [place] [address], [facility] [phone] * Microscopic Urinalysis (01/22/2025 4:25 AM EDT) WBC, UA None 0 - 5 /HPF 01/22/2025 4:25 AM EDT [facility] RBC, UA 10 TO 20 0 - 4 /HPF 01/22/2025 4:25 AM EDT [facility] Comment:Reference range defi sapna for non-centrifuged specimen. Casts UA None Reference range defined for non-centrifug ed specimen. 0 - 8 /LPF 01/22/2025 4:25 AM EDT [facility] Epithelial Cells, UA None 0 - 5 /HPF 01/22/2025 4:25 AM EDT [facility] Bacteria, UA None None 01/22/2025 4:25 AM EDT [facility] 01/22/2025 4:25 AM EDT 01/22/2025 4:25 AM EDT Vitor Joseph MD URINE ORDERABLES Final Result Performing Organization Address City/[facility] Hospital/ZIP Co de Phone Number [facility] [address] [place] [address], [facility] [phone] * (ABNORMAL) Urinalysis with Reflex to Culture (01/22/2025 4:25 AM EDT) Color, UA Yellow Yellow 01/22/2025 4:25 AM EDT [facility] Turbidity UA Clear Clear 01/22/2025 4:25 AM EDT [facility] Glucose, Ur NEGATIVE NEGATIVE mg/dL 01/22/2025 4:25 AM EDT [facility] Bilirubin, Urine NEGATIVE NEGATIVE 01/22/2025 4:25 AM EDT [facility] Ketones, Urine NEGATIVE NEGATIVE mg/dL 01/22/2025 4:25 AM EDT [facility] Specific [place], UA 1.052(H) 1.005 - 1.030 01/22/2025 4:25 AM EDT [facility] Urine Hgb MODERATE(A) NEGATIVE 01/22/2025 4:25 AM EDT [facility] pH, Urine 5.5 5.0 - 8.0 01/22/2025 4:25 AM EDT [facility] Protein, UA NEGATIVE NEGATIVE mg/dL 01/22/2025 4:25 AM EDT [facility] Urobilinogen, Urine Normal 0.0 - 1.0 EU/dL 01/22/2025 4:25 AM EDT [facility] Nitrite, Urine NEGATIVE NEGATIVE 01/22/2025 4:25 AM EDT [facility] Leukocyte Esterase, Urine NEGATIVE NEGATIVE 01/22/2025 4:25 AM EDT [facility] URINE SPECIMEN / Unknown 01/22/2025 4:25 AM EDT 01/22/2025 4:25 AM EDT Vitor Joseph MD URINE ORDERABLES Final Result [facility] [address] [place] [address] * SURGICAL PATHOLOGY REPORT (01/22/2025 4:18 AM EDT) Surgical Pathology Report [id number] [facility] ANATOMIC PATHOLOGY [address] [place] [id number] SURGICAL PATHOLOGY CONSULTATION Patient Name: AMBROSIO RAMÍREZ V. MR#: [id number] Specimen #[id number] Procedures/Adden da PERIPHERAL BLOOD REPORT Date Ordered: 01/23/2025 Status: Signed Out Date Complete: 01/25/2025 By: Tamanna Gonzales M.D. Date Reported: 01/25/2025 INTERPRETATION Peripheral blood: - Normocytic red blood cells with unremarkable morphology. - White blood cells with normal morphology. No blasts. - Marked thrombocytopenia . RESULTS-COMMENTS PERIPHERAL BLOOD STUDY CBC: Please see the electronic health record for CBC parameters ([id number], 01/22/2025, 04:18). PLATELETS: Marked thrombocytopenia . LEUKOCYTES: White blood cells show normal morphology. No atypical lymphocytes. No dysplasia. There are no blasts. ERYTHROCYTES: Red blood cells show normal morphology. No schistocytes. Note: The electronic health record is reviewed. Tamanna Gonzales M.D. Source: A: Peripheral Blood Victiv 01/22/2025 4:18 AM EDT 01/23/2025 1:22 PM EDT us Uzair Wilson MD PATHOLOGY/CYTOLOGY ORDERA BLES Final Result [facility] [address] [place] [address], [facility] [phone] [facility] [employer] * (ABNORMAL) Myoglobin, Blood (01/22/2025 4:18 AM EDT) Myoglobin 27(L) 28 - 72 ng/mL 01/22/2025 4:18 AM EDT [facility] 01/22/2025 4:18 AM EDT 01/22/2025 4:18 AM EDT Uzair Wilson MD CHEMISTRY ORDERABLES Yamile l Result [facility] [address] [place] [address], [facility] [phone] * (ABNORMAL) Hepatic Function Panel (01/22/2025 4:18 AM EDT) Pathologist [facility] Albumin 3.8 3.5 - 5.2 g/dL 01/22/2025 4:18 AM EDT [facility] Alkaline Phosphatase 84 40 - 129 U/L 01/22/2025 4:18 AM EDT [facility] ALT 36 10 - 50 U/L 01/22/2025 4:18 AM EDT [facility] AST 28 10 - 50 U/L 01/22/2025 4:18 AM EDT [facility] Total Bilirubin 0.5 0.0 - 1.2 mg/dL 01/22/2025 4:18 AM EDT [facility] Bilirubin, Direct 0.3(H) 0.0 - 0.2 mg/dL 01/22/2025 4:18 AM EDT [facility] Bilirubin, Indirect 0.2 0.0 - 1.0 mg/dL 01/22/2025 4:18 AM EDT [facility] Total Protein 8.0 6.6 - 8.7 g/dL 01/22/2025 4:18 AM EDT [facility] Globulin 4.2 g/dL 01/22/2025 4:18 AM EDT [facility] Albumin/Globulin Ratio 0.9(L) 1.0 - 2.5 01/22/2025 4:18 AM EDT [facility] 01/22/2025 4:18 AM EDT 01/22/2025 4:18 AM EDT Uzair Wilson MD CHEMISTRY ORDERABLES Yamile l Result [facility] [address] [place] [address], [facility] [phone] * (ABNORMAL) C-Reactive Protein (01/22/2025 4:18 AM EDT) CRP 38.0(H) 0.0 - 5.0 mg/L 01/22/2025 4:18 AM EDT [facility] 01/22/2025 4:18 AM EDT 01/22/2025 4:18 AM EDT Uzair Wilson MD CHEMISTRY ORDERABLES Yamile l Result Performing Organization Address [facility]/ZIP Co de Phone Number [facility] [address] [place] [address] * CK (01/22/2025 4:18 AM EDT) Total CK 62 39 - 308 U/L 01/22/2025 4:18 AM EDT [facility] 01/22/2025 4:18 AM EDT 01/22/2025 4:18 AM EDT Uzair Wilson MD CHEMISTRY ORDERABLES Yamile l Result Performing Organization Address [facility] Co de Phone Number [facility] [address] [place] [address] * TSH reflex to FT4 (01/22/2025 4:18 AM EDT) Pathologist [facility] TSH 1.24 0.27 - 4.20 uIU/mL 01/22/2025 4:18 AM EDT [facility] 01/22/2025 4:18 AM EDT 01/22/2025 4:18 AM EDT Uzair Wilson MD CHEMISTRY ORDERABLES Yamile l Result Performing Organization Address City/[facility]/ZIP Co de Phone Number [facility] [address] [place] [address] * (ABNORMAL) Sedimentation Rate (01/22/2025 4:18 AM EDT) Sed Rate, Automated 119(H) 0 - 20 mm/Hr 01/22/2025 4:18 AM EDT [facility] 01/22/2025 4:18 AM EDT 01/22/2025 4:18 AM EDT Uzair Wilson MD HEMATOLOGY ORDERABLES Fin al Result Performing Organization Address [facility] Co de Phone Number [facility] [address] [place] [address] * Reticulocytes (01/22/2025 4:18 AM EDT) Retic Ct Pct 0.8 0.5 - 1.9 % 01/22/2025 4:18 AM EDT [facility] Absolute Retic # 0.039 0.030 - 0.080 M/uL 01/22/2025 4:18 AM EDT [facility] Immature Retic Fract 17.0 2.7 - 18.3 % 01/22/2025 4:18 AM EDT [facility] Retic Hemoglobin 29.9 28.2 - 35.7 pg 01/22/2025 4:18 AM EDT [facility] 01/22/2025 4:18 AM EDT 01/22/2025 4:18 AM EDT Uzair Wilson MD HEMATOLOGY ORDERABLES Fin al Result Performing Organization Address [facility] Co de Phone Number [facility] [address] [place] [address] * Path Review, Smear (01/22/2025 4:18 AM EDT) Pathologist Review ELECTRONICALLY SIGNED. TAMANNA GONZALES M.D. 01/22/2025 4:18 AM EDT [facility] 01/22/2025 4:18 AM EDT 01/22/2025 4:18 AM EDT Uzair Wilson MD HEMATOLOGY ORDERABLES Fin al Result Performing Organization Address City/[facility]/[place] [address], [facility] [phone] * Lactate Dehydrogenase (01/22/2025 4:18 AM EDT) LD 193 135 - 225 U/L 01/22/2025 4:18 AM EDT [facility] 01/22/2025 4:18 AM EDT 01/22/2025 4:18 AM EDT Uzair Wilson MD CHEMISTRY ORDERABLES Yamile l Result Performing Organization Address [facility] [place] [address], [facility] [phone] * Lactic Acid (01/22/2025 4:18 AM EDT) Lactic Acid, Whole Blood 1.3 0.7 - 2.1 mmol/L 01/22/2025 4:18 AM EDT [facility] 01/22/2025 4:18 AM EDT 01/22/2025 4:18 AM EDT Uzair Wilson MD CHEMISTRY ORDERABLES Yamile l Result Performing Organization Address [facility] Co [place] [address], [facility] [phone] * (ABNORMAL) Haptoglobin (01/22/2025 4:18 AM EDT) Haptoglobin 381(H) 30 - 200 mg/dL 01/22/2025 4:18 AM EDT [facility] 01/22/2025 4:18 AM EDT 01/22/2025 4:18 AM EDT Uzair Wilson MD CHEMISTRY ORDERABLES Yamile l Result [facility] [address] [place] [address], [facility] [phone] * (ABNORMAL) CBC with Auto Differential (01/22/2025 4:18 AM EDT) WBC 8.3 3.5 - 11.3 k/uL 01/22/2025 4:18 AM EDT [facility] RBC 4.70 4.21 - 5.77 m/uL 01/22/2025 4:18 AM EDT [facility] Hemoglobin 13.6 13.0 - 17.0 g/dL 01/22/2025 4:18 AM EDT [facility] Hematocrit 40.6(L) 40.7 - 50.3 % 01/22/2025 4:18 AM EDT [facility] MCV 86.4 82.6 - 102.9 fL 01/22/2025 4:18 AM EDT [facility] MCH 28.9 25.2 - 33.5 pg 01/22/2025 4:18 AM EDT [facility] MCHC 33.5 28.4 - 34.8 g/dL 01/22/2025 4:18 AM EDT [facility] RDW 12.8 11.8 - 14.4 % 01/22/2025 4:18 AM EDT [facility] Platelets See Reflexed IPF Result 138 - 453 k/uL 01/22/2025 4:18 AM EDT [facility] Platelet, Fluorescence <2(LL) 138 - 453 k/uL 01/22/2025 4:18 AM EDT [facility] Platelet, Immature Fraction 0.0(L) 1.1 - 10.3 % 01/22/2025 4:18 AM EDT [facility] NRBC Automated 0.0 0.0 per 100 WBC 01/22/2025 4:18 AM EDT [facility] Neutrophils % 68(H) 36 - 65 % 01/22/2025 4:18 AM EDT [facility] Lymphocytes % 19(L) 24 - 43 % 01/22/2025 4:18 AM EDT [facility] Monocytes % 11 3 - 12 % 01/22/2025 4:18 AM EDT [facility] Eosinophils % 0(L) 1 - 4 % 01/22/2025 4:18 AM EDT [facility] Basophils % 0 0 - 2 % 01/22/2025 4:18 AM EDT [facility] Immature Granulocytes % 1(H) 0 % 01/22/2025 4:18 AM EDT [facility] Neutrophils Absolute 5.63 1.50 - 8.10 k/uL 01/22/2025 4:18 AM EDT [facility] Lymphocytes Absolute 1.60 1.10 - 3.70 k/uL 01/22/2025 4:18 AM EDT [facility] Monocytes Absolute 0.94 0.10 - 1.20 k/uL 01/22/2025 4:18 AM EDT [facility] Eosinophils Absolute <0.03 0.00 - 0.44 k/uL 01/22/2025 4:18 AM EDT [facility] Basophils Absolute 0.03 0.00 - 0.20 k/uL 01/22/2025 4:18 AM EDT [facility] Immature Granulocytes Absolute 0.05 0.00 - 0.30 k/uL 01/22/2025 4:18 AM EDT [facility] 01/22/2025 4:18 AM EDT 01/22/2025 4:18 AM EDT us Uzair Wilson MD HEMATOLOGY ORDERABLES Fin al Result [facility] [address] [place] [address], [facility] [phone] * (ABNORMAL) Basic Metabolic Panel w/ Reflex to MG (01/22/2025 4:18 AM EDT) Sodium 136 136 - 145 mmol/L 01/22/2025 4:18 AM EDT [facility] Potassium 3.9 3.7 - 5.3 mmol/L 01/22/2025 4:18 AM EDT [facility] Chloride 101 98 - 107 mmol/L 01/22/2025 4:18 AM EDT [facility] CO2 20 20 - 31 mmol/L 01/22/2025 4:18 AM EDT [facility] Anion Gap 15 9 - 16 mmol/L 01/22/2025 4:18 AM EDT [facility] Glucose 112(H) 74 - 99 mg/dL 01/22/2025 4:18 AM EDT [facility] BUN 13 8 - 23 mg/dL 01/22/2025 4:18 AM EDT [facility] Creatinine 0.6(L) 0.7 - 1.2 mg/dL 01/22/2025 4:18 AM EDT [facility] Est, Glom Filt Rate >90 >60 mL/min/1. 73m2 01/22/2025 4:18 AM EDT [facility] Comment: These results are not intended for [...] - 10.4 mg/dL 01/22/2025 4:18 AM EDT [facility] 01/22/2025 4:18 AM EDT 01/22/2025 4:18 AM EDT us Uzair Wilson MD CHEMISTRY ORDERABLES Yamlie l Result Performing Organization Address City/[facility] Co mn Phone Number [facility] [address] [place] [address], [facility] [phone] * Protime-INR (01/22/2025 4:07 AM EDT) Protime 14.2 11.7 - 14.9 sec 01/22/2025 4:07 AM EDT [facility] INR 1.1 01/22/2025 4:07 AM EDT [facility] Comment: Therapeutic Range: Moderate Anticoagulant Intensity: INR = 2.0-3.0 High Anticoagulant Intensity: INR = 2.5-3.5 01/22/2025 4:07 AM EDT 01/22/2025 4:10 AM EDT Milind Corley MD HEMATOLOGY ORDERABLES Final Res ult [facility] [address] [place] [address], [facility] [phone] * (ABNORMAL) APTT (01/22/2025 4:07 AM EDT) APTT 66.5(H) 23.0 - 36.5 sec 01/22/2025 4:07 AM EDT [facility] Comment: IV Heparin Therapy Range: 66.0-92.0 sec Blood BLOOD SPECIMEN / Unknown 01/22/2025 4:07 AM EDT 01/22/2025 4:10 AM EDT Milind Corley MD HEMATOLOGY ORDERABLES Final Res ult Performing Organization Address [facility] Co de Phone Number [facility] [address] [place] [address], [facility] [phone] documented in this encounter Visit Diagnoses Diagnosis [...] Minutes, EVERY 24 HOURS, First dose on 01/22/25 at 0730, For 4 days New Bag 01/25/2025 8:12 AM EDT 40 mg 200 mL/hr New Bag 01/24/2025 8:17 AM EDT 40 mg 200 mL/hr New Bag 01/23/2025 8:33 AM EDT 40 mg 200 mL/hr immune globulin (GAMUNEX-C) 10% solution 60 g 60 g (1 g/kg 60 kg Order-specific weight), IntraVENous, ONCE, 1 dose, On 01/23/25 at 1700, Initial (first 30 minutes): 1 [...] on 01/22/25 at 1953, Until 01/22/25 at 1954, Other Given 01/22/2025 7:55 PM EDT 75 [...] Saumya Huizar RN)1655 (Given - Provider: Saumya Shearer V RN)2016 (Given - Provider: Olga Lidia Garnett, ROSALIE) 0817 (Given - Provider: Mili Weinberg RN) dexAMETHasone (DECADRON) 40 mg in sodium chloride 0.9 % 50 mL IVPB (COMPLETED) 40 mg, IntraVENous, at 200 mL/hr, Administer over 15 Minutes, EVERY 24 HOURS, First dose on Fri01/22/25 at 0730, For 4 days 0812 (New Bag - Provider: Carolyn Morgan RN)0830 (Stopped - Provider: Carolyn Morgan RN) immune globulin (GAMUNEX-C) 10% solution 65,000 mg (COMPLETED) 65,000 mg (rounded from 66,000 mg = 1,000 mg/kg 66 kg), IntraVENous, ONCE, 1 dose, On Fri01/25/25 at 1845, Initial (first 30 minutes): 1 mg/kg/minute (0.6 mL/kg/hour); Maintenance: Increase gradually (if tolerated) to a maximum of 8 mg/kg/minute (4.8 mL/kg/hour). 2056 (New Bag - Provider: Olga Lidia Garnett, ROSALIE) metroNIDAZOLE (FLAGYL) tablet 500 mg 500 mg, [...] 0556 (Given - Provider: Olga Lidia Garnett, ROSALIE) predniSONE (DELTASONE) tablet 20 mg 20 mg, Oral, DAILY, 7 doses, First dose on Fri01/27/25 at 1000, Last dose on Fri02/02/25 at 0900 1033 (Given - Provider: Mili Weinberg, ROSALIE) rosuvastatin (CRESTOR) tablet 10 mg 10 mg, Oral, NIGHTLY, 7 doses, First dose on Fri01/24/25 at 2100, Last dose on Fri01/30/25 at 2100 2044 (Given - Provider: Olga Lidia Garnett RN) 2017 (Given - Provider: Olga Lidia Garnett RN) sennosides-docusate sodium (SENOKOT-S) 8.6-50 MG tablet [...] Huizar RN)2020 (Given - Provider: Olga Lidia Garnett RN) 0818 (Given - Provider: Mili Weinberg RN) tetracycline (ACHROMYCIN;SUMYCIN) capsule 500 mg 500 [...] 30mL/min documented in this encounter Care Teams Salesforce Administrator Relationship Specialty Start Date End Date Davion Stephenson DO [address] [place] [phone] PCP - General Family Medicine 01/22/25 documented as of this encounter
--- OUTSIDE RECORDS SUMMARY | 2025-01-31 09:09 | XMS_ITS | Clinical Summary ---
Author Organization [facility] Address [address] [place] [address] Care Team Providers Care Teletype Adjuster Name Role Phone Davion Stephenson DO Primary Care Provider [phone] Allergies No known active allergies Medications Medication Sig Dispensed Refills Start Date End Date Status aspirin 81 mg capsule Take 81 mg by mouth in the morning. 07/08/2024 Active rosuvastatin (Crestor) 10 mg tablet Take 10 mg by mouth in the morning. 06/09/2024 Active Active Problems Problem Noted Date Diagnosed Date Pre-op evaluation 11/29/2024 PAD (peripheral artery disease) 11/29/2024 Elevated PSA 08/09/2022 Enlarged prostate with urinary obstruction 08/09 Dependence on nicotine from cigarettes Hyperlipidemia 03/18/2022 Abdominal aortic aneurysm (AAA) 02/01/2022 Encounters Date Type Department Care Team Description 12/21/2024 Telephone [facility] [address] [place] [address] Mary Rangel MA 11/29/2024 11:40 AM EDT Office Visit [facility] [address] [place] [address] Vasquez Louis MD Pre-op evaluation (Primary Dx); Infrarenal abdominal aortic aneurysm (AAA) without rupture; PAD (peripheral artery disease); Pure hypercholesterolemia; Cigarette nicotine dependence in remission from Last 3 Months Family History Medical History Relation Name Comments Lung cancer Father Breast cancer Mother Relation Name Status Comments Brother Alive Father Mother Sister Alive Social History Tobacco Use Types Packs/Day Years Used Date Smoking Tobacco: Former Cigarettes Q uit: 05/31/2024 Smokeless Tobacco: Never Alcohol Use Standard Drinks/Week Comments Not Currently 0 (1 standard drink = 0.6 oz pur e alcohol) Sex and Gender Information Value Date Recorded Sex Assigned at Not on file Gender Identity Not on file Sexual Orientation Not on file Last Filed Vital Signs Vital Sign Reading Time Taken Comments Blood Pressure 126/79 11/29/2024 11:57 AM EDT Pulse 76 11/29/2024 11:57 AM EDT Temperature - - Respiratory Rate - - Oxygen Saturation 98% 11/29/2024 11:57 AM EDT Inhaled Oxygen Concentration - - Weight 77.6 kg (171 lb) 11/29/2024 11:57 AM EDT Height 180.3 cm (5' 11 ) 11/29/2024 11:57 AM EDT Body Mass Index 23.85 11/29/2024 11:57 AM EDT Plan of Treatment Health Maintenance Due Date Last Done Comments CT Colonography 1960 Colonoscopy 1960 Colorectal Cancer Screening 1960 FIT-DNA 1960 FIT 1960 FOBT 1960 Sigmoidoscopy 1960 Depression Screening 1972 Adult Tetanus 1982 Zoster Vaccines (1 of 2) 2010 COVID-19 Vaccine (2023-2 5 season) 2024 Influenza Vaccine (Season Ended) 2025 HIB Vaccines Aged Out No longer eligi ble based on patient's age to complete this topic HPV Vaccines Aged Out No longer eligi ble based on patient's age to complete this topic IPV Vaccines Aged Out No longer eligi ble based on patient's age to complete this topic Meningococcal B Vaccine Aged Out No l onger eligible based on patient's age to complete this topic Meningococcal Vaccine Aged Out No martir israel eligible based on patient's age to complete this topic Pneumococcal Vaccine: Pediat rics (0 to 5 Years) and At-Risk Patients (6 to 64 Years) Aged Out No longer eligible b ased on patient's age to complete this topic Rotavirus Vaccines Aged Out No longer eligible based on patient's age to complete this topic Procedures Procedure Name Priority Date/Time Associated Diagnosis Comments ECG 12 LEAD UNIT PERFORMED Routine 11/29/2024 1:01 PM EDT Pre-op evaluation PAD (peripheral artery disease) ECG 12 LEAD UNIT PERFORMED Routine 11/29/2024 11:50 AM EDT Pre-op evaluation from Last 3 Months Results * ECG 12 lead unit performed (11/29/2024 1:01 PM EDT) Only the most recent of2 resultswithin the time period is included. Narrative Vasquez Louis MD - 11/29/2024 1:01 PM EDT Normal sinus rhythm, heart rate 69 bpm, normal EKG Vasquez Louis MD ECG ORDERABLES from Last 3 Months Care Teams Teletype Adjuster Relationship Specialty Start Date End Date Davion Stephenson DO [address] [place] [address] PCP - General Family Medicine 11/29/24
--- OUTSIDE RECORDS SUMMARY | 2025-01-31 09:09 | XMS_ITS | Encounter Summary ---
Author Organization [facility] Address [id number] [address] [place] [address] Care Team Providers Care Brake Operator Name Role Phone Davion Stephenson Primary Care Provider + [phone] Encounter Details Date Type Department Care Team (Late st Contact Info) Description 11/22/2024 Orders Only [facility] Internal Medicine - Family Medicine [address] [place] [address] Alejandrina Felipe CMA Abdominal aortic aneurysm (AAA) without rupture, unspecified part ([facility]) Social History Tobacco Use Types Packs/Day Years Used Date Smoking Tobacco: Every Day Cigarettes 0.5 20 Smokeless Tobacco: Never Alcohol Use Standard Drinks/Week Comments Not Currently 0 (1 standard drink = 0.6 oz pur e alcohol) [facility] Utilities Answer Date Recorded In the past 12 months has e electric, gas, oil, or water company threatened to shut off services in your home? No 07/08/2024 Social Connection and Isolation Panel [NHANES] A nswer Date Recorded In a typical week, how many times do you talk on the phone with family, friends, or neighbors? Once a week 07/08/2024 How often do you get together with friends or re latives? Twice a week 07/08/2024 How often do you attend mandaeism or catholic serv ices? Never 07/08/2024 Do you belong to any clubs o r organizations such as mandaeism groups, unions, fraternal or athletic groups, or school groups? No 07/08/2024 How often do you attend meet ings of the clubs or organizations you belong to? Never 07/08/2024 Are you , , di vorced, , never , or living with a partner? 07/08/2024 AUDIT-C Answer Date Recorded Q1: How often do you have a drink containing alcohol? Never 07/08/2024 Q2: How many drinks containi ng alcohol do you have on a typical day when you are drinking? Patient does not drink Q3: How often do you have si x or more drinks on one occasion? Never 07/08/2024 Overall Financial Resource Strain (CARDIA) Answe r Date Recorded How hard is it for you to pa y for the very basics like food, housing, medical care, and heating? Not hard at all 07/08/2024 PHQ-2 Answer Date Recorded Total Score 0 11/15/2024 [facility] - Occupational Stress Questionnaire Answer Date Recorded Do you feel stress - tense, restless, nervous, or anxious, or unable to sleep at night because your mind is troubled all the time - these days? Not at all 07/08/2024 Exercise Vital Sign Answer Date Recorde d On average, how many days pe r week do you engage in moderate to strenuous exercise (like a brisk walk)? 2 days 07/08/2024 On average, how many minutes do you engage in exercise at this level? 10 min 07/08/2024 PRAPARE - Transportation Answer Date Re corded In the past 12 months, has l ack of transportation kept you from medical appointments or from getting medications? No 03/2024 In the past 12 months, has l ack of transportation kept you from meetings, work, or from getting things needed for daily living? No 07/08/2024 Housing Instability Answer Date Recorde d Are you worried or concerned that in the next two months you may not have stable housing that you own, rent or stay in as a part of a household? No 07/08/2024 Childcare Answer Date Recorded Do problems getting child ca re make it difficult for you to work or study? No 07/08/2024 Employment Answer Date Recorded Do you need help finding a l al career center and/or a training program? No 07/08/2024 Hunger Screening Answer Date Recorded Within the past 12 months we worried whether our food would run out before we got money to buy more. Never True 11/25/2024 Within the past 12 months th e food we bought just didn't last and we didn't have money to get more. Never True 11/25/2024 Purpose - Life Answer Date Recorded I have a purpose and direction in my life. Stron gly Agree 07/08/2024 Sex and Gender Information Value Date Recorded Sex Assigned at Not on file Legal Sex Male 1:44 PM EST Gender Identity Not on file Sexual Orientation Not on file documented as of this encounter Plan of Treatment Upcoming Encounters Date Type Department Care Team (Late st Contact Info) Description 07/11/2025 10:30 AM EST Office Visit [facility] - Family Medicine [address] [place] [address] Davion Stephenson DO [address] [facility] [place] [address] documented as of this encounter Procedures Procedure Name Priority Date/Time Associated Diagnosis Comments US RETROPERITONEAL LIMITED Routine 11/22 10:00 AM EDT Abdominal aortic aneurysm (AAA) without rupture, unspecified part ([facility]) documented in this encounter Results * Ultrasound retroperitoneal limited (11/22/2024 10:00 AM EDT) Anatomical Region Laterality Modality Body Ultrasound us Davion Stephenson DO IMG US ORDERABLES Final Resu lt documented in this encounter Visit Diagnoses Diagnosis Abdominal aortic aneurysm (AAA) without rupture, unspecified part documented in this encounter Additional Health Concerns Assessment Noted Time PHQ-9 Depression Total Score: 0 11/16/19 25 8:29 AM EDT documented as of this encounter Care Teams Brake Operator Relationship Specialty Start Date End Date Davion Stephenson DO [address] [facility] [facility] [place] [address] PCP - General Family Medicine 07/10/22 documented as of this encounter
--- OUTSIDE RECORDS SUMMARY | 2025-01-31 09:09 | XMS_ITS | Encounter Summary ---
Author Organization [facility] Address [address] [place] [address] Care Team Providers Care Nuts And Bolts Assembler Name Role Phone Davion Stephenson DO Primary Care Provider + [phone] Encounter Details Date Type Department Care Team (Latest Contact Info) Description 01/22/2025 Travel Social History Tobacco Use Types Packs/Day Years Used Date Smoking Tobacco: Former Cigarettes 0.5 34.2 S tarted: 09/01/1990 Smokeless Tobacco: Never Alcohol Use Standard Drinks/Week Comments Never 0 (1 standard drink = 0.6 oz pur e alcohol) [facility] Utilities Answer Date Recorded In the past 12 months has th e electric, gas, oil, or water company [...] any time in the past [address] [facility] [place], were you homeless or living in a [facility] (including now)? No 01/22/2025 Food Insecurity Answer [...] Description 02/02/2025 5:00 PM EDT Office Visit [facility] Part of [address] [address] Darryl Hendrix MD [address] [place] [address] F/U hospital stay low platelets documented as of this encounter Visit Diagnoses Not on filedocumented in this encounter Care Teams Nuts And Bolts Assembler Relationship Specialty Start Date End Date Davion Stephenson DO [address] [place] [address] PCP - General Family Medicine 01/22/25 documented as of this encounter
--- OUTSIDE RECORDS SUMMARY | 2025-01-31 09:09 | XMS_ITS | Referral Summary ---
Author Organization [facility] Address [address] [place] [address] Care Team Providers Care Nuclear Physics Professor Name Role Phone Davion Stephenson DO Primary Care Provider [phone] Encounters Date Type Department Care Team Description 12/21/2024 Telephone [facility] [address] [place] [address] Mary Rangel MA 11/29/2024 11:40 AM EDT Office Visit [facility] [address] [place] [address] Vasquez Louis MD Pre-op evaluation (Primary Dx); Infrarenal abdominal aortic aneurysm (AAA) without rupture; PAD (peripheral artery disease); Pure hypercholesterolemia; Cigarette nicotine dependence in remission from Last 3 Months Allergies No known active allergies Medications Medication [...] Hyperlipidemia 03/18/2022 Abdominal aortic aneurysm (AAA) 02/01/2022 Social History Tobacco Use Types Packs/Day Years [...] 11/29/2024 11:57 AM EDT Plan of Treatment Not on file Procedures Procedure Name Priority Date/Time Associated Diagnosis [...] ORDERABLES from Last 3 Months Care Teams Nuclear Physics Professor Relationship Specialty Start Date End Date Davion Stephenson DO [address] [place] [address] PCP - General Family Medicine 11/29/24
--- OUTSIDE RECORDS SUMMARY | 2025-01-31 09:09 | XMS_ITS | Encounter Summary ---
Author Organization [facility] Address [id number] [address] [place] [address] Care Team Providers Care Asbestos Abatement Worker Name Role Phone Davion Stephenson Primary Care Provider [phone] Encounter Details Date Type Department Care Team (Late st Contact Info) Description 01/05/2025 Orders Only [facility] Internal Medicine - Family Medicine [address] [place] [address] Ref Prov, [place] [address] Social History Tobacco Use Types Packs/Day Years Used Date Smoking Tobacco: Former Cigarettes 0.5 20 Smokeless Tobacco: Former Comments:Reports quit 2 ken hs ago Alcohol Use Standard Drinks/Week Comments Not Currently 0 (1 standard drink = 0.6 oz pur e alcohol) [facility] Utilities Answer Date Recorded In [...] week 07/08/2024 How often do you attend shinto or tenriism serv ices? Never 07/08/2024 Do you belong to any clubs o r organizations such as shinto groups, unions, fraternal or athletic groups, or [...] Answer Date Recorded Total Score 0 11/15/2024 [facility] - Occupational Stress Questionnaire Answer Date [...] Recorded Do you need help finding a [facility] and/or a training program? No 07/08/2024 Hunger Screening Answer Date Recorded Within the past 12 months we worried whether our food would run out before we got money to buy more. Never True 12/23/2024 Within the past 12 months th e food we bought just didn't last and we didn't have money to get more. Never True 12/23/2024 Purpose - Life Answer Date Recorded I [...] Medicine - Family Medicine [address] [place] [address] Davion Stephenson DO [address] [facility] [place] [address] documented as of this encounter Procedures Procedure Name Priority Date/Time Associated Diagnosis Comments NM BONE SCAN WHOLE BODY Routine 12/10/2024 7:59 AM EDT documented in this encounter Results * NM bone scan whole body (12/10/2024 7:59 AM EDT) Anatomical Region Laterality Modality Nuc Med N/A Nuclear Medicine us Not In System Ref Prov IMG NM ORDERABLES Final R esult documented in this encounter Visit Diagnoses Not on filedocumented in this encounter Additional Health Concerns Assessment Noted Time PHQ-9 Depression Total Score: 0 11/16/19 25 8:29 AM EDT documented as of this encounter Care Teams Asbestos Abatement Worker Relationship Specialty Start Date End Date Davion Stephenson DO [address] [facility] [place] [address] PCP - General Family Medicine 07/10/22 documented as of this encounter
--- OUTSIDE RECORDS SUMMARY | 2025-01-31 09:10 | XMS_ITS | Clinical Summary ---
Author Organization [facility] Address [address] [place] [address] Care Team Providers Care Child Care Cook Name Role Phone Davion Stephenson Primary Care Provider [phone] Allergies Active Allergy Reactions Criticality Noted Date Comments Heparin 01/24/2025 HIT Medications metroNIDAZOLE (FLAGYL) 500 MG tablet Take 1 tablet by mouth in the morning, at noon, in the evening, and at bedtime for 52 doses 52 tablet 2024 Active tetracycline (ACHROMYCIN;SUMY CHELSI) 500 MG capsule Take 1 capsule by mouth 4 times daily for 52 doses 52 capsule 2024 Active rosuvastatin (CRESTOR) 10 MG tablet Take 1 tablet by mouth nightly for 30 doses 30 tablet 2024 Active predniSONE (DELTASONE) 20 MG tablet Take 1 tablet by mouth daily for 7 doses 7 tablet 2024 Active bismuth subsalicylate (PEPTO BISMOL) 262 MG/15ML suspension Take 30 mLs by mouth 4 times daily for 52 doses 2024 Active pantoprazole (PROTONIX) 40 MG tablet Take 1 tablet by mouth 2 times daily (before meals) for 14 days 28 tablet 2024 Active polyethylene glycol (GLYCOLAX) 17 g packet Take 1 packet by mouth daily as needed for Constipation 30 packet 025 2024 Active metroNIDAZOLE (FLAGYL) 500 MG tablet Take 1 tablet by mouth in the morning, at noon, in the evening, and at bedtime for 52 doses 52 tablet 025 2024 Discontinued tetracycline (ACHROMYCIN;SUMY CHELSI) 500 MG capsule Take 1 capsule by mouth 4 times daily for 52 doses 52 capsule 025 2024 Discontinued rosuvastatin (CRESTOR) 10 MG tablet Take 1 tablet by mouth nightly for 30 doses 30 tablet 025 2024 Discontinued bismuth subsalicylate (PEPTO BISMOL) 262 MG/15ML suspension Take 30 mLs by mouth 4 times daily for 52 doses 025 2024 Discontinued pantoprazole (PROTONIX) 40 MG tablet Take 1 tablet by mouth 2 times daily (before meals) for 14 days 28 tablet 025 2024 Discontinued polyethylene glycol (GLYCOLAX) 17 g packet Take 1 packet by mouth daily as needed for Constipation 30 packet 2024 Discontinued predniSONE (DELTASONE) 20 MG tablet Take 1 tablet by mouth daily for 7 doses 7 tablet 2024 Discontinued Active Problems Problem Noted Date Diagnosed Date H. pylori infection 01/26/2025 S/P AAA repair 01/23/2025 Thrombocytopenia 01/22/2025 Rash 01/22/2025 Encounters Date Type Department Care Team Description 01/22/2025 3:32 AM EDT - 01/27/2025 12:35 PM EDT Hospital Encounter [facility]/Med Surg [address] [place] [address] Uzair Wilson MD Retholtz, Michael T, DO Waqar, Zainulabedin, MD H. pylori infection (Primary Dx); S/P AAA repair; Rash; Thrombocytopenia Discharge Disposition: Home or Self Care 01/22/2025 Travel from Last 3 Months Social History Tobacco Use Types Packs/Day Years Used Date Smoking Tobacco: Former Cigarettes 0.5 34.2 S tarted: 09/01/1990 Smokeless Tobacco: Never Tobacco Cessation:Counseling Given: Yes Alcohol Use Standard Drinks/Week Comments Never 0 (1 standard drink = 0.6 oz pur e alcohol) [facility] Utilities Answer Date Recorded In the past [...] any time in the past 12 m onths, were you homeless or living in a fdc (including now)? No 01/22/2025 Food Insecurity Answer [...] Mass Index 22.59 01/22/2025 3:54 AM EDT Plan of Treatment Upcoming Encounters Date Type Department Care Team (Late st Contact Info) Description 02/02/2025 5:00 PM EDT Office Visit [facility] Part of [address] [address] Darryl Hendrix MD [address] [place] [address] F/U hospital stay low platelets Health Maintenance Due Date Last Done Comments Lipids 1970 Depression Screen 1972 DTaP/Tdap/Td vaccine (1 - Tdap) 1979 Colonoscopy 2005 Colorectal Cancer Screen 2005 FIT/FOBT: Average risk 2005 Fecal-DNA (Cologuard): Kiel ge risk 2005 Sigmoidoscopy/CT colonography 2005 Pneumococcal 50+ years Vacci ne (1 of 1 - PCV) 2010 Shingles vaccine (1 of 2) 2010 COVID-19 Vaccine ( - 2023-2 5 season) 2024 Flu vaccine (Season Ended) 2025 Respiratory Syncytial Virus (RSV) or age 60 yrs+ (1 - 1-dose 75+ series) 2035 HIV screen Completed 01/22/2025 Hepatitis C screen Completed 01/22/2025 Hepatitis A vaccine Aged Out No longe r eligible based on patient's age to complete this topic Hepatitis B vaccine Aged Out No longe r eligible based on patient's age to complete this topic Hib vaccine Aged Out No longer eligi ble based on patient's age to complete this topic Meningococcal (ACWY) vaccine Aged Out No longer eligible based on patient's age to complete this topic Meningococcal B vaccine Aged Out No l onger eligible based on patient's age to complete this topic Polio vaccine Aged Out No longer elig ible based on patient's age to complete this topic Procedures Procedure Name Priority Date/Time Associated Diagnosis Comments CBC WITH AUTO DIFFERENTIAL Routine 01/27/2025 6:04 AM EDT BASIC METABOLIC PANEL W/ REFLEX TO MG FOR LOW K Routine 01/27/2025 6:04 AM EDT H. PYLORI ANTIGEN Routine 01/26/2025 9:1 7 AM EDT CBC WITH AUTO DIFFERENTIAL Routine 01/26/2025 3:07 AM EDT BASIC METABOLIC PANEL W/ REFLEX TO MG FOR LOW K Routine 01/26/2025 3:07 AM EDT CBC WITH AUTO DIFFERENTIAL Routine 01/25/2025 6:32 AM EDT BASIC METABOLIC PANEL W/ REFLEX TO MG FOR LOW K Routine 01/25/2025 6:32 AM EDT CBC WITH AUTO DIFFERENTIAL Routine 01/24/2025 3:16 PM EDT HEPATIC FUNCTION PANEL Routine 3:32 AM EDT CBC WITH AUTO DIFFERENTIAL Routine 01/24/2025 3:32 AM EDT BASIC METABOLIC PANEL W/ REFLEX TO MG FOR LOW K Routine 01/24/2025 3:32 AM EDT CBC WITH AUTO DIFFERENTIAL Routine 01/23/2025 6:12 PM EDT SEROTONIN REL ASSAY Routine 01/23/2025 1 0:21 AM EDT PREVIOUS SPECIMEN Routine 01/23/2025 10: 21 AM EDT FEDERICO-SEWELL PANEL Routine 01/23/2025 9: 02 AM EDT IMMUNOTYPING, SERUM Routine 01/23/2025 9 :02 AM EDT CYTOMEGALOVIRUS ANTIBODY, IGG,IGM Routine 01/23/2025 9:02 AM EDT ELECTROPHORESIS PROTEIN, SERUM Routine 01/23/2025 9:02 AM EDT VITAMIN B12 & FOLATE Routine 01/23/2025 9:02 AM EDT [id number] ACTIVITY Routine 01/23/2025 9:0 2 AM EDT CBC WITH AUTO DIFFERENTIAL Routine 01/23/2025 4:02 AM EDT BASIC METABOLIC PANEL W/ REFLEX TO MG FOR LOW K Routine 01/23/2025 4:02 AM EDT US LIVER SPLEEN Routine 01/22/2025 9:[address] CHEST W CONTRAST Routine 01/22/2025 8 :03 PM EDT CBC WITH AUTO DIFFERENTIAL Routine 01/22/2025 5:41 PM EDT HEPATITIS PANEL, ACUTE Routine 12:17 PM EDT TEG GLOBAL HEMOSTASIS WITH LYSIS Routine 01/22/2025 12:17 PM EDT CULTURE, BLOOD 1 STAT 01/22/2025 12:1 3 PM EDT CULTURE, BLOOD 1 STAT 01/22/2025 12:0 7 PM EDT XR CHEST PORTABLE Routine 01/22/2025 10: 50 AM EDT POCT GLUCOSE Routine 01/22/2025 10:30 AM EDT ARTERIAL BLOOD GAS, POC Routine 01/22/2025 10:30 AM EDT DIRECT ANTIGLOBULIN TEST Routine 01/22/2025 9:34 AM EDT ONOFRE PROFILE Routine 01/22/2025 9:34 AM EDT D-DIMER, QUANTITATIVE Routine 01/22/2025 9:34 AM EDT HEPARIN-INDUCED PLATELET ANTIBODY Routine 01/22/2025 9:34 AM EDT CBC WITH AUTO DIFFERENTIAL Routine 01/22/2025 9:34 AM EDT BASIC METABOLIC PANEL W/ REFLEX TO MG FOR LOW K Routine 01/22/2025 9:34 AM EDT ONOFRE SCREEN WITH REFLEX Routine 9:34 AM EDT FIBRIN SPLIT PRODUCTS Routine 01/22/2025 9:34 AM EDT FIBRINOGEN Routine 01/22/2025 9:34 AM EDT PROCALCITONIN Routine 01/22/2025 9:34 AM EDT HIV SCREEN Routine 01/22/2025 9:34 AM EDT MRSA DNA PROBE, NASAL [employer] Label Print 01/22/2025 4:56 AM EDT MICROSCOPIC URINALYSIS Routine 4:25 AM EDT URINALYSIS WITH REFLEX TO CULTURE [employer] Label Print 01/22/2025 4:25 AM EDT SURGICAL PATHOLOGY REPORT Routine 01/22/2025 4:18 AM EDT MYOGLOBIN, BLOOD Routine 01/22/2025 4:18 AM EDT HEPATIC FUNCTION PANEL Routine 4:18 AM EDT C-REACTIVE PROTEIN Routine 01/22/2025 4: 18 AM EDT CK Routine 01/22/2025 4:18 AM EDT TSH REFLEX TO FT4 Routine 01/22/2025 4:1 8 AM EDT SEDIMENTATION RATE Routine 01/22/2025 4: 18 AM EDT RETICULOCYTES Routine 01/22/2025 4:18 AM EDT PERIPHERAL BLOOD SMEAR, PATH REVIEW Routine 01/22/2025 4:18 AM EDT LACTATE DEHYDROGENASE Routine 01/22/2025 4:18 AM EDT LACTIC ACID Routine 01/22/2025 4:18 AM EDT HAPTOGLOBIN Routine 01/22/2025 4:18 AM EDT CBC WITH AUTO DIFFERENTIAL Routine 01/22/2025 4:18 AM EDT BASIC METABOLIC PANEL W/ REFLEX TO MG FOR LOW K Routine 01/22/2025 4:18 AM EDT PROTIME-INR Routine 01/22/2025 4:07 AM EDT APTT Routine 01/22/2025 4:07 AM EDT from Last 3 Months Results * (ABNORMAL) Basic Metabolic Panel w/ Reflex to MG (01/27/2025 6:04 AM EDT) Only the most recent of7 resultswithin the time period is included. Sodium 131(L) 136 - 145 mmol/L 01/27/2025 6:04 AM EDT [facility] Potassium 4.3 3.7 - 5.3 mmol/L 01/27/2025 6:04 AM EDT [facility] Comment: Specimen hemolysis has exceeded the interference as defined by Aidan. Value may be falsely increased. Suggest recollection if clinically indicated. Chloride 102 98 - 107 mmol/L 01/27/2025 6:04 AM EDT [facility] CO2 21 20 - 31 mmol/L 01/27/2025 6:04 AM EDT [facility] Anion Gap 8(L) 9 - 16 mmol/L 01/27/2025 6:04 AM EDT [facility] Glucose 81 74 - 99 mg/dL 01/27/2025 6:04 AM EDT [facility] BUN 15 8 - 23 mg/dL 01/27/2025 6:04 AM EDT [facility] Creatinine 0.7 0.7 - 1.2 mg/dL 01/27/2025 6:04 AM EDT [facility] Est, Glom Filt Rate >90 >60 mL/min/1. 73m2 01/27/2025 6:04 AM EDT [facility] Comment: These results are not intended for [...] - 10.4 mg/dL 01/27/2025 6:04 AM EDT [facility] Blood BLOOD SPECIMEN / Unknown 01/27/2025 6:04 AM EDT 01/27/2025 6:26 AM EDT us Milind Corley MD CHEMISTRY ORDERABLES Final Resu lt [facility] [address] [place] [address], [facility] [phone] * (ABNORMAL) CBC with Auto Differential (01/27/2025 6:04 AM EDT) Only the most recent of10 resultswithin the time period is included. WBC 7.5 3.5 - 11.3 k/uL 01/27/2025 6:04 AM EDT [facility] RBC 3.77(L) 4.21 - 5.77 m/uL 01/27/2025 6:04 AM EDT [facility] Hemoglobin 10.9(L) 13.0 - 17.0 g/dL 01/27/2025 6:04 AM EDT [facility] Hematocrit 33.2(L) 40.7 - 50.3 % 01/27/2025 6:04 AM EDT [facility] MCV 88.1 82.6 - 102.9 fL 01/27/2025 6:04 AM EDT [facility] MCH 28.9 25.2 - 33.5 pg 01/27/2025 6:04 AM EDT [facility] MCHC 32.8 28.4 - 34.8 g/dL 01/27/2025 6:04 AM EDT [facility] RDW 13.3 11.8 - 14.4 % 01/27/2025 6:04 AM EDT [facility] Platelets See Reflexed IPF Result 138 - 453 k/uL 01/27/2025 6:04 AM [facility] Platelet, Fluorescence 29(L) 138 - 453 k/uL 01/27/2025 6:04 AM [facility]DA[facility]ur[facility] Platelet, Immature Fraction 14.5(H) 1.1 - 10.3 % 01/27/2025 6:04 AM [facility] NRBC Automated 0.0 0.0 per 100 WBC 01/27/2025 6:04 AM EDT [facility] Neutrophils % 61 36 - 65 % 01/27/2025 6:04 AM EDT [facility] Lymphocytes % 25 24 - 43 % 01/27/2025 6:04 AM EDT [facility] Monocytes % 11 3 - 12 % 01/27/2025 6:04 AM EDT [facility] Eosinophils % 1 1 - 4 % 01/27/2025 6:04 AM EDT [facility] Basophils % 0 0 - 2 % 01/27/2025 6:04 AM EDT [facility] Immature Granulocytes % 1(H) 0 % 01/27/2025 6:04 AM EDT [facility] Neutrophils Absolute 4.59 1.50 - 8.10 k/uL 01/27/2025 6:04 AM EDT [facility] Lymphocytes Absolute 1.83 1.10 - 3.70 k/uL 01/27/2025 6:04 AM EDT [facility] Monocytes Absolute 0.85 0.10 - 1.20 k/uL 01/27/2025 6:04 AM EDT [facility] Eosinophils Absolute 0.08 0.00 - 0.44 k/uL 01/27/2025 6:04 AM EDT [facility] Basophils Absolute <0.03 0.00 - 0.20 k/uL 01/27/2025 6:04 AM EDT [facility] Immature Granulocytes Absolute 0.10 0.00 - 0.30 k/uL 01/27/2025 6:04 AM EDT [facility] Blood BLOOD SPECIMEN / Unknown 01/27/2025 6:04 AM EDT 01/27/2025 6:26 AM EDT us Milind Corley MD HEMATOLOGY ORDERABLES Final Res ult Performing Organization Address City/[facility]/ZIP Co de Phone Number [facility] [address] [place] [address] * (ABNORMAL) H. pylori antigen (01/26/2025 9:17 AM EDT) Pathologist [facility] Specimen Description .FECES 01/26/2025 9:17 AM EDT [facility] Direct Exam POSITIVE( A) 01/26/2025 9:17 AM EDT [facility] STOOL SPECIMEN / Unknown 01/26/2025 9:17 AM EDT 01/26/2025 9:17 AM EDT us Melisa Mejia MD BODY FLUIDS AND STOOLS ORD ERABLES Final Result Performing Organization Address City/[facility]/ZIP Co de Phone Number [facility] [address] [place] [address], [facility] [phone] * (ABNORMAL) Hepatic Function Panel (01/24/2025 3:32 AM EDT) Only the most recent of2 resultswithin the time period is included. Albumin 3.1(L) 3.5 - 5.2 g/dL 01/24/2025 3:32 AM EDT [facility] Alkaline Phosphatase 61 40 - 129 U/L 01/24/2025 3:32 AM EDT [facility] ALT 28 10 - 50 U/L 01/24/2025 3:32 AM EDT [facility] AST 24 10 - 50 U/L 01/24/2025 3:32 AM EDT [facility] Total Bilirubin 0.6 0.0 - 1.2 mg/dL 01/24/2025 3:32 AM EDT [facility] Bilirubin, Direct 0.1 0.0 - 0.2 mg/dL 01/24/2025 3:32 AM EDT [facility] Bilirubin, Indirect 0.5 0.0 - 1.0 mg/dL 01/24/2025 3:32 AM EDT [facility] Total Protein 9.5(H) 6.6 - 8.7 g/dL 01/24/2025 3:32 AM EDT [facility] Globulin 6.4 g/dL 01/24/2025 3:32 AM EDT [facility] Albumin/Globulin Ratio 0.5(L) 1.0 - 2.5 01/24/2025 3:32 AM EDT [facility] 01/24/2025 3:32 AM EDT 01/24/2025 3:52 AM EDT us Milind Corley MD CHEMISTRY ORDERABLES Final Resu lt Performing Organization Address [facility] Co de Phone Number [facility] [address] [place] [address] * PREVIOUS SPECIMEN (01/23/2025 10:21 AM EDT) 01/23/2025 10:2 1 AM EDT 01/23/2025 10:23 AM EDT us Uzair Wilson MD CHEMISTRY ORDERABLES Yamile l Result Performing Organization Address City/[facility]/ZIP Co de Phone Number [facility] [address] [place] [address] * Serotonin Rel Assay (01/23/2025 10:21 AM EDT) Pathologist [facility] Heparin Type Porcine Heparin 01/23/2025 10:21 AM EDT [facility] Heparin Platelet Antibody Negative Negative 01/23/2025 10:21 AM EDT [facility] KIM Porc Low Dose 3 % 025 10:21 AM EDT [facility] KIM Porc High Dose 0 % 2024 10:21 AM EDT [facility] SEROTONIN RELEASING ASSAY See Note 01/23/2025 10:21 AM EDT [facility] Comment: (NOTE) This patient's specimen demonstrates [...] regarding diagnosis of HIT is available at [facility]. INTERPRETIVE INFORMATION: KIM, Unfractionated Heparin This test was developed and its performance characteristics determined by [facility]. It has not been cleared or approved by the US Food and Drug Administration. This test was performed in a CLIA certified laboratory and is intended for clinical purposes. Performed By: [facility] [address] [place] [address] Dealer Compliance Representative: Mariusz Melo MD, PhD CLIA Number: [id number] 01/23/2025 10:2 1 AM EDT 01/23/2025 10:23 AM EDT us Uzair Wilson MD CHEMISTRY ORDERABLES [place] [address], [facility] [phone] [address], [facility] [phone] * Immunotyping, Serum (01/23/2025 9:02 AM EDT) Pathologist [facility] ITYP Interpretation Immunotyping is negative for monoclonal immunoglobulin. 01/23/2025 9:02 AM EDT [facility] Pathologist Review ELECTRONICALLY SIGNED. PILLO ELY M.D. 01/23/2025 9:02 AM EDT [facility] 01/23/2025 9:02 AM EDT 01/23/2025 9:06 AM EDT Pérez Flynn MD MICROBIAL SPECIALIST RY ORDERABLES Final Result Performing Organization Address [facility] Co de Phone Number [facility] [address] [place] [address] * Vitamin B12 & Folate (01/23/2025 9:02 AM EDT) Vitamin B-12 624 232 - 1245 pg/mL 01/23/2025 9:02 AM EDT [facility] Folate 11.7 4.8 - 24.2 ng/mL 01/23/2025 9:02 AM EDT [facility] Blood BLOOD SPECIMEN / Unknown 01/23/2025 9:02 AM EDT 01/23/2025 9:06 AM EDT Pérez Flynn MD MICROBIAL SPECIALIST RY ORDERABLES Final Result Performing Organization Address [facility] Phone Number [facility] [address] [place] [address] * (ABNORMAL) Cytomegalovirus Ab,IGG,IGM (01/23/2025 9:02 AM EDT) CMV IgG 744.0(H) <0.5 01/23/2025 9:02 AM EDT [facility] Comment: Reference Range: <0.5 Non Reactive 0.5 [...] IgM 0.2 <0.7 01/23/2025 9:02 AM EDT [facility] Comment: Reference Range: <0.7 Non Reactive 0.7 [...] 01/23/2025 9:06 AM EDT Pérez Flynn MD MICROBIAL SPECIALIST RY ORDERABLES Final Result [facility] [address] [place] [address] * (ABNORMAL) Federico Sewell Panel (01/23/2025 9:02 AM EDT) EBV VCA,IgG >750.0(H) 0.0 - 21.9 U/mL 01/23/2025 9:02 AM EDT [facility] Comment: (NOTE) INTERPRETIVE INFORMATION: Federico-Sewell Virus Antibody to Viral Capsid Antigen, IgG 17.9 U/mL or less.......Not Detected 18.0-21.9 U/mL..........Indeterminate - Repeat testing in 10-14 days may be helpful. 22.0 U/mL or greater....Detected EBV VCA,IgM 26.5 0.0 - 43.9 U/mL 01/23/2025 9:02 AM EDT [facility] Comment: (NOTE) INTERPRETIVE INFORMATION: Federico-Sewell Virus Antibody to Viral Capsid Antigen, IgM 35.9 U/mL or less.......Not Detected 36.0-43.9 U/mL..........Indeterminate - Repeat testing in 10-14 days may be helpful. 44.0 U/mL or greater....Detected EBV Nuclear Ag Ab >600.0(H) 0.0 - 21.9 U/mL 01/23/2025 9:02 AM EDT [facility] Comment: (NOTE) INTERPRETIVE INFORMATION: Federico-Sewell Virus Antibody to Nuclear Antigen, IgG 17.9 U/mL or less.......Not Detected 18.0-21.9 U/mL..........Indeterminate - Repeat testing in 10-14 days may be helpful. 22.0 U/mL or greater....Detected EBV Early Antigen Ab, IgG >150.0(H) 0.0 - 10.9 U/mL 01/23/2025 9:02 AM EDT [facility] Comment: (NOTE) INTERPRETIVE INFORMATION: Federico-Sewell Virus Antibody to Early D Antigen (EA-D), IgG 8.9 U/mL or less........Not Detected 9.0-10.9 U/mL...........Indeterminate - Repeat testing in 10-14 days may be helpful. 11.0 U/mL or greater....Detected Performed By: [facility] [address] [place] [address] Dealer Compliance Representative: Mariusz Melo MD, PhD CLIA Number: [id number] 01/23/2025 9:02 AM EDT 01/23/2025 9:06 AM EDT Pérez Flynn MD MICROBIAL SPECIALIST RY [place] [address], [facility] [phone] [facility] [address] [phone] * [id number] ACTIVITY (01/23/2025 9:02 AM EDT) Pathologist [facility] [id number] Activity >100 >=61 % 025 9:02 AM EDT [facility] Comment: (NOTE) INTERPRETIVE INFORMATION: ASFQMV11 Activity WFUZWP55 levels of less than 10 percent may be associated with either inherited (Tomeka-Abel Syndrome) or acquired thrombotic thrombocytopenic purpura (TTP). A variety of medical conditions may result in a mild to moderate deficiency of NGHIJF68 activity. Recent plasma exchange therapy may raise the observed HHYERH34 activity. This test was developed and its performance characteristics determined by [facility]. It has not been cleared or approved by the [place] Food and Drug Administration. This test was performed in a CLIA certified laboratory and is intended for clinical purposes. Performed By: [facility] [employer] [address] [place] [address] Dealer Compliance Representative: Mariusz Melo MD, PhD CLIA Number: [id number] Blood BLOOD SPECIMEN / Unknown 01/23/2025 9:02 AM EDT 01/23/2025 9:06 AM EDT Pérez Flynn MD MICROBIAL SPECIALIST RY [place] [address], [facility] [phone] [phone] * (ABNORMAL) Electrophoresis Protein, Serum (01/23/2025 9:02 AM EDT) Pathologist [facility] Total Protein 8.3 6.6 - 8.7 g/dL 01/23/2025 9:02 AM EDT [email or web address] Albumin (calculated) 3.1(L) 3.2 - 5.2 g/dL 01/23/2025 9:02 AM EDT [email or web address] Albumin % 37(L) 56 - 66 % 01/23/2025 9:02 AM EDT [email or web address] Aklnh-0-Aqrfeqha 0.4 0.1 - 0.4 g/dL 01/23/2025 9:02 AM EDT [facility] 1 % 5 3 - 5 % 01/23/2025 9:02 AM EDT [facility] Qifkf-1-Uzjiitxp 1.0(H) 0.5 - 0.9 g/dL 01/23/2025 9:02 AM EDT [facility] Alpha 2 % 11 7 - 12 % 01/23/2025 9:02 AM EDT [facility] Beta Globulin 0.8 0.7 - 1.4 g/dL 01/23/2025 9:02 AM EDT [facility] Beta Percent 10 8 - 13 % 01/23/2025 9:02 AM EDT [facility] Gamma Globulin 3.1(H) 0.5 - 1.5 g/dL 01/23/2025 9:02 AM EDT [facility] Gamma Globulin % 37(H) 11 - 19 % 01/23/2025 9:02 AM EDT [facility] Total Prot. Sum 8.4(H) 6.3 - 8.2 g/dL 01/23/2025 9:02 AM EDT [facility] Total Prot. Sum,% 100 98 - 102 % 01/23/2025 9:02 AM EDT [facility] Protein Electrophoresis, Serum Albumin is decreased. May be observed with hepatic diseases, 01/23/2025 9:02 AM EDT [facility] Comment: proteinuria, malnutrition, acute phase response, and [...] PILLO ELY M.D. 01/23/2025 9:02 AM EDT [facility] BLOOD SPECIMEN / Unknown 01/23/2025 9:02 AM EDT 01/23/2025 9:06 AM EDT Pérez Flynn MD IMMUNOL OGY ORDERABLES Final Result [facility] [address] [place] [address], [facility] [phone] * US LIVER SPLEEN (01/22/2025 9:17 PM [...] 2. Normal spleen. us Milind Corley MD G ORDERABLES Final Result * CT CHEST W [...] ORDERING SYSTEM PROVIDED HISTORY[facility] [email or web address] for malignancy TECHNOLOGIST PROVIDED HISTORY: [facility] [email or web address] for malignancy FINDINGS: Mediastinum: Thoracic aorta is [...] lytic or blastic bony lesion. Procedure Note Mckeon, Bang H, MD - 01/23/2025 EXAMINATION: CT OF THE [...] atherosclerosis. 4. Hepatic steatosis. Robel Mccormack MD [facility] [place] ORDERABLES Final Result * (ABNORMAL) TEG Global Hemostasis with Lysis (01/22/2025 12:17 PM EDT) Reaction Time TEG 14.7(H) 4.6 - 9.1 min 01/22/2025 12:17 PM EDT [facility] LY30(Lysis) TEG 0.0 0.0 - 2.6 % 01/22/2025 12:17 PM EDT [email or web address] MA(Max Clot) Rapid TEG <40.0(L) 52.0 - 70 mm 01/22/2025 12:17 PM EDT [email or web address] Fibrinogen, Functional TEG 39.8(H) 15.0 - 32.0 mm 01/22/2025 12:17 PM EDT [email or web address] BLOOD SPECIMEN / Unknown 01/22/2025 12:17 PM EDT 01/22/2025 12:22 PM EDT us Vitor Joseph MD HEMATOLOGY ORDERABLES Final R esult Performing Organization Address City/[facility] Co de Phone Number [facility] [place] [address], [facility] [phone] * Hepatitis Panel, Acute (01/22/2025 12:17 PM EDT) Pathologist [facility] Hepatitis B Surface Ag NONREACTIVE NONREACTIVE 01/22/2025 12:17 PM EDT [facility] Hepatitis C Ab NONREACTIVE NONREACTIVE 01/23/20 12:17 PM EDT [email or web address] Comment: The hepatitis C procedure used in [...] IgM NONREACTIVE NONREACTIVE 12/31 12:17 PM EDT [email or web address] Hep A IgM NONREACTIVE NONREACTIVE 01/22/2025 12:17 PM EDT [email or web address] Blood BLOOD SPECIMEN / Unknown 01/22/2025 12:17 PM EDT 01/22/2025 12:21 PM EDT us Vitor Joseph MD IMMUNOLOGY ORDERABLES Final R esult [facility] [address] [place] [address], [facility] [phone] * Culture, Blood 1 (01/22/2025 12:13 PM EDT) Only the most recent of2 resultswithin the time period is included. Specimen Description .BLOOD 01/22/2025 12:13 PM EDT [facility] Special Requests RH 9ML 01/22/2025 12:13 PM EDT [facility] Culture NO GROWTH 5 DAYS 01/22/2025 12:13 PM EDT [facility] BLOOD SPECIMEN / Unknown 01/22/2025 12:13 PM EDT 01/22/2025 12:23 PM EDT Vitor Joseph MD MICROBIOLOGY - GENERAL ORDERA BLES Final Result Performing Organization Address City/[facility]/ZIP Co de Phone Number [facility] [address] [place] [address], [facility] [phone] * XR CHEST PORTABLE (01/22/2025 10:50 AM [...] DIAGNOSTIC IMAGING ORDERABLES Final Result * (ABNORMAL) Arterial Blood Gas, POC (01/22/2025 10:30 AM EDT) POC pH 7.511(H) 7.350 - 7.450 01/22/2025 10:30 AM EDT [facility] POC pCO2 27.3(L) 35.0 - 48.0 mm Hg 01/22/2025 10:30 AM EDT [facility] POC PO2 87.1 83.0 - 108.0 mm Hg 01/22/2025 10:30 AM EDT [facility] POC HCO3 21.9 21.0 - 28.0 mmol/L 01/22/2025 10:30 AM EDT [facility] Positive Base Excess, Art 0.2 0.0 - 3.0 mmol/L 01/22/2025 10:30 AM EDT [facility] POC O2 SAT 97.7 94.0 - 98.0 % 01/22/2025 10:30 AM EDT [facility] O2 Delivery Device Room Air 01/22/2025 10:30 AM EDT [facility] Jone Test POSITIVE 01/22/2025 10:30 AM EDT [facility] Sample Site Right Radial Artery 01/22/2025 10:30 AM EDT [facility] 01/22/2025 10:3 0 AM EDT 01/22/2025 10:32 AM EDT Uzair Wilson MD POINT OF CARE TEST ORDERA BLES Final Result [facility] [address] [place] [address], [facility] [phone] * (ABNORMAL) POCT Glucose (01/22/2025 10:30 AM EDT) POC Glucose 126(H) 74 - 100 mg/dL 01/22/2025 10:30 AM EDT [facility] 01/22/2025 10:3 0 AM EDT 01/22/2025 10:32 AM EDT Uzari Wilson MD POINT OF CARE TEST ORDERA BLES Final Result [facility] [address] [place] [address], [facility] [phone] * (ABNORMAL) ONOFRE profile (01/22/2025 9:34 AM EDT) Anti-Orozco 1.6 <7.0 U/mL 01/22/2025 9:34 AM OuternetT [facility] Comment: Reference Range: <7.0 Negative 7.0-10.0 Equivocal >10.0 Positive Ribosomal P Ab 7.9(H) <7.0 U/mL 01/22/2025 9:34 AM [email or web address] Comment: Reference Range: <7.0 Negative 7.0-10.0 Equivocal >10.0 Positive RNA Polymerase III Antibodies, IgG 1.5 <7.0 U/mL 01/22/2025 9:34 AM [email or web address] Comment: Reference Range: <7.0 Negative 7.0-10.0 Equivocal >10.0 Positive Anti-Scleroderm a 3.0 <7.0 U/mL 01/22/2025 9:34 AM [email or web address] Comment: Reference Range: <7.0 Negative 7.0-10.0 Equivocal >10.0 Positive Anti-RNP70 1.7 <7.0 U/mL 01/22/2025 9:34 AM [email or web address] Comment: Reference Range: <7.0 Negative 7.0-10.0 Equivocal >10.0 Positive Anti-U1RNP 3.1 <5.0 U/mL 01/22/2025 9:34 AM [email or web address] Comment: Reference Range: <5.0 Negative 5.0-10.0 Equivocal >10.0 Positive SSA 52 (RO) (DAVID) AB, IGG 0.9 <7.0 U/mL 01/22/2025 9:34 AM EDT [facility] Comment: Reference Range: <7.0 Negative 7.0-10.0 Equivocal >10.0 Positive SSA 60 (RO) (DAVID) AB, IGG 1.0 <7.0 U/mL 01/22/2025 9:34 AM EDT [facility] Comment: Reference Range: <7.0 Negative 7.0-10.0 Equivocal >10.0 Positive Anti SSB 0.7 <7.0 U/mL 01/22/2025 9:34 AM EDT [facility] Comment: Reference Range: <7.0 Negative 7.0-10.0 Equivocal >10.0 Positive Anti VAL-1 0.7 <7.0 U/mL 01/22/2025 9:34 AM EDT [facility] Comment: Reference Range: <7.0 Negative 7.0-10.0 Equivocal >10.0 Positive Anti-Centromere 1.0 <7.0 U/mL 9:34 AM EDT [facility] Comment: Reference Range: <7.0 Negative 7.0-10.0 Equivocal >10.0 Positive 01/22/2025 9:34 AM EDT 01/22/2025 9:46 AM EDT Pérez Flynn MD IMMUNOL OGY ORDERABLES Final Result [facility] [place] [address], [facility] [phone] * (ABNORMAL) ONOFRE SCREEN WITH REFLEX (01/22/2025 9:34 AM EDT) ONOFRE POSITIVE( A) NEGATIVE 01/22/2025 9:34 AM EDT [facility] DAVID Antibodies Screen 0.5 <0.7 U/mL 01/22/2025 9:34 AM EDT [facility] Comment: Reference Range: <0.7 Negative 0.7-1.0 Equivocal >1.0 Positive DAVID Screen includes U1RNP,RNP70,Sm,Ro(SS-A),La(SS-B),CENP,Scl-70,Val-1 Anti ds DNA 35.0(H) <10.0 IU/mL 01/22/2025 9:34 AM EDT [facility] Comment: Reference Range: <10.0 Negative 10.0-15.0 Equivocal >15.0 Positive BLOOD SPECIMEN / Unknown 01/22/2025 9:34 AM EDT 01/22/2025 9:46 AM EDT Pérez Flynn MD MICROBIAL SPECIALIST RY ORDERABLES Final Result [facility] [address] [phone] * Procalcitonin (01/22/2025 9:34 AM EDT) Procalcitonin 0.06 0.00 - 0.09 ng/mL 01/22/2025 9:34 AM EDT [facility] Comment: Suspected Sepsis: <0.50 ng/mL Low likelihood [...] entered into the Change in Procalcitonin Calculator ([email or web address]) to determine the patient's Mortality Risk Prognosis In healthy neonates, plasma Procalcitonin (PCT) concentrations increase gradually after , reaching peak values at about 24 hours of age then decrease to normal values below 0.5 ng/mL by 48-72 hours of age. Blood BLOOD SPECIMEN / Unknown 01/22/2025 9:34 AM EDT 01/22/2025 9:46 AM EDT Pérez Flynn MD MICROBIAL SPECIALIST RY ORDERABLES Final Result Performing Organization Address [facility] Co de Phone Number [address] [phone] * (ABNORMAL) Heparin-Induced Platelet Antibody (01/22/2025 9:34 AM EDT) [facility] Heparin Induced Plt Ab 1.247(H) 0.000 - 0.400 O.D. 01/22/2025 9:34 AM EDT [facility] Comment: O.D. Interpretation: <=0.400 Negative > 0.400 Positive 01/22/2025 9:34 AM EDT 01/22/2025 9:46 AM EDT Pérez Flynn MD HEMATOL OGY ORDERABLES Final Result Performing Organization Address [facility] de Phone Number Envoy [address] [place] [address] * (ABNORMAL) Fibrin Split Products (01/22/2025 9:34 AM EDT) [facility] FDP >5(H) <5 ug/mL 01/22/2025 9:34 AM EDT [facility] Comment:<20 Blood BLOOD SPECIMEN / Unknown 01/22/2025 9:34 AM EDT 01/22/2025 9:46 AM EDT Pérez Flynn MD HEMATOL OGY ORDERABLES Final Result Performing Organization Address [facility] Co de Phone Number [facility] [address] [place] [address] * HIV Screen (01/22/2025 9:34 AM EDT) [facility] HIV Ag/Ab NONREACTIVE NONREACTIVE 01/22/2025 9:34 AM EDT [facility] Comment: No laboratory evidence of HIV infection. If acute HIV infection is suspected, consider testing for HIV-1 RNA. BLOOD SPECIMEN / Unknown 01/22/2025 9:34 AM EDT 01/22/2025 9:46 AM EDT Pérez Flynn MD IMMUNOL OGY ORDERABLES Final Result Performing Organization Address [facility] [place] [address], [facility] [phone] * (ABNORMAL) Fibrinogen (01/22/2025 9:34 AM EDT) Fibrinogen 681(H) 203 - 521 mg/dL 01/22/2025 9:34 AM EDT [email or web address] Blood BLOOD SPECIMEN / Unknown 01/22/2025 9:34 AM EDT 01/22/2025 9:46 AM EDT Pérez Flynn MD HEMATOL OGY ORDERABLES Final Result Performing Organization Address [facility] de Phone Number [address] [phone] * (ABNORMAL) D-Dimer, Quantitative (01/22/2025 9:34 AM EDT) D-Dimer, Quant 2.86(H) 0.00 - 0.57 ug/mL FEU 01/22/2025 9:34 AM EDT [facility] Comment: When combined with a low clinical [...] Flynn MD HEMATOL O[place] [address], [facility] [phone] * DIRECT ANTIGLOBULIN TEST (01/22/2025 9:34 AM EDT) FELIPE, Polyspecific NEGATIVE 01/22/2025 9:34 AM EDT [email or web address] BLOOD SPECIMEN / Unknown 01/22/2025 9:34 AM EDT 01/22/2025 9:47 AM EDT Pérez Flynn MD BLOOD B ANK TEST ORDERABLES Final Result Performing Organization Address City/[facility]/[place] [address], [facility] [phone] * MRSA DNA Probe, Nasal (01/22/2025 4:56 AM EDT) Specimen Description .NASAL SWAB 01/22/2025 4:56 AM EDT [email or web address] MRSA, DNA, Nasal NEGATIVE NEGATIVE 01/23/20 4:56 AM EDT [email or web address] Comment: NEGATIVE: MRSA DNA not detected by [...] MICROBIOLOGY - GENERAL ORDERABL ES Final Result [facility] [address] [place] [address], [facility] [phone] * (ABNORMAL) Urinalysis with Reflex to Culture (01/22/2025 4:25 AM EDT) Color, UA Yellow Yellow 01/22/2025 4:25 AM EDT [facility] Turbidity UA Clear Clear 01/22/2025 4:25 AM EDT [facility] Glucose, Ur NEGATIVE NEGATIVE mg/dL 01/22/2025 4:25 AM EDT [facility] Bilirubin, Urine NEGATIVE NEGATIVE 01/22/2025 4:25 AM EDT [facility] Ketones, Urine NEGATIVE NEGATIVE mg/dL 01/22/2025 4:25 AM EDT [facility] Specific [place], UA 1.052(H) 1.005 - 1.030 01/22/2025 4:25 AM EDT [facility] Urine Hgb MODERATE(A) NEGATIVE 01/22/2025 4:25 AM EDT [facility] pH, Urine 5.5 5.0 - 8.0 01/22/2025 4:25 AM EDT [facility] Protein, UA NEGATIVE NEGATIVE mg/dL 01/22/2025 4:25 AM EDT [facility] Urobilinogen, Urine Normal 0.0 - 1.0 EU/dL 01/22/2025 4:25 AM EDT [facility] Nitrite, Urine NEGATIVE NEGATIVE 01/22/2025 4:25 AM EDT [facility] Leukocyte Esterase, Urine NEGATIVE NEGATIVE 01/22/2025 4:25 AM EDT [facility] URINE SPECIMEN / Unknown 01/22/2025 4:25 AM EDT 01/22/2025 4:25 AM EDT Vitor Joseph MD URINE ORDERABLES Final Result [facility] [phone] * Microscopic Urinalysis (01/22/2025 4:25 AM EDT) WBC, UA None 0 - 5 /HPF 01/22/2025 4:25 AM EDT [facility] RBC, UA 10 TO 20 0 - 4 /HPF 01/22/2025 4:25 AM EDT [facility] Comment:Reference range defi sapna for non-centrifuged specimen. Casts UA None Reference range defined for non-centrifug ed specimen. 0 - 8 /LPF 01/22/2025 4:25 AM EDT [facility] Epithelial Cells, UA None 0 - 5 /HPF 01/22/2025 4:25 AM EDT [facility] Bacteria, UA None None 01/22/2025 4:25 AM EDT [facility] 01/22/2025 4:25 AM EDT 01/22/2025 4:25 AM EDT us Vitor Joseph MD URINE ORDERABLES Final Result Performing Organization Address [facility]/ZIP Co de Phone Number [address] [phone] * (ABNORMAL) Myoglobin, Blood (01/22/2025 4:18 AM EDT) Pathologist [facility] Myoglobin 27(L) 28 - 72 ng/mL 01/22/2025 4:18 AM EDT [facility] 01/22/2025 4:18 AM EDT 01/22/2025 4:18 AM EDT us Uzair Wilson MD CHEMISTRY ORDERABLES Yamile l Result [address] [phone] * TSH reflex to FT4 (01/22/2025 4:18 AM EDT) TSH 1.24 0.27 - 4.20 uIU/mL 01/22/2025 4:18 AM EDT [facility] 01/22/2025 4:18 AM EDT 01/22/2025 4:18 AM EDT Uzair Wilson MD CHEMISTRY ORDERABLES Yamile l Result Performing Organization Address City/[facility]/ZIP Co de Phone Number Envoy [address] [place] [address] * SURGICAL PATHOLOGY REPORT (01/22/2025 4:18 AM EDT) Pathologist [facility] Surgical Pathology Report [id number] [email or web address] CONSULTING PATHOLOGISTS [facility] ANATOMIC PATHOLOGY [address] [place], [place] [phone] SURGICAL PATHOLOGY CONSULTATION Patient Name: IRMA RAMÍREZ V. MR#: [id number] Specimen #[id number] Procedures/Adden da PERIPHERAL BLOOD REPORT Date Ordered: 01/23/2025 Status: Signed Out Date Complete: 01/25/2025 By: Tamanna Gonzales M.D. Date Reported: 01/25/2025 INTERPRETATION Peripheral blood: - Normocytic red blood cells with unremarkable morphology. - White blood cells with normal morphology. No blasts. - Marked thrombocytopenia . RESULTS-COMMENTS PERIPHERAL BLOOD STUDY CBC: Please see the electronic health record for CBC parameters ([id number], 01/22/2025, 04:18). PLATELETS: Marked thrombocytopenia . LEUKOCYTES: White blood cells show normal morphology. No atypical lymphocytes. No dysplasia. There are no blasts. ERYTHROCYTES: Red blood cells show normal morphology. No schistocytes. Note: The electronic health record is reviewed. Tamanna Gonzales M.D. Source: A: Peripheral Blood [facility] 01/22/2025 4:18 AM EDT 01/23/2025 1:22 PM EDT Uzair Wilson MD PATHOLOGY/CYTOLOGY ORDERA BLES Final Result Performing Organization Address [facility] Co de Phone Number Envoy [address] [place] [address], [facility] [phone] [facility] * (ABNORMAL) Sedimentation Rate (01/22/2025 4:18 AM EDT) Sed Rate, Automated 119(H) 0 - 20 mm/Hr 01/22/2025 4:18 AM EDT [email or web address] 01/22/2025 4:18 AM EDT 01/22/2025 4:18 AM EDT Uzair Wilson MD HEMATOLOGY ORDERABLES Fin al Result Performing Organization Address City/[facility]/[place] [address], [facility] [phone] * Path Review, Smear (01/22/2025 4:18 AM EDT) Pathologist Review ELECTRONICALLY SIGNED. TAMANNA GONZALES M.D. 01/22/2025 4:18 AM EDT [facility] 01/22/2025 4:18 AM EDT 01/22/2025 4:18 AM EDT Uzair Wilson MD HEMATOLOGY ORDERABLES Fin al Result Performing Organization Address City/[facility]/[place] [address], [facility] [phone] * Reticulocytes (01/22/2025 4:18 AM EDT) Retic Ct Pct 0.8 0.5 - 1.9 % 01/22/2025 4:18 AM EDT [facility] Absolute Retic # 0.039 0.030 - 0.080 M/uL 01/22/2025 4:18 AM EDT [facility] Immature Retic Fract 17.0 2.7 - 18.3 % 01/22/2025 4:18 AM EDT [email or web address] Retic Hemoglobin 29.9 28.2 - 35.7 pg 01/22/2025 4:18 AM EDT [facility] 01/22/2025 4:18 AM EDT 01/22/2025 4:18 AM EDT Uzair Wilson MD HEMATOLOGY ORDERABLES Fin al Result Performing Organization Address [facility] Co de Phone Number [facility] [address] [phone] * (ABNORMAL) C-Reactive Protein (01/22/2025 4:18 AM EDT) CRP 38.0(H) 0.0 - 5.0 mg/L 01/22/2025 4:18 AM EDT [facility] 01/22/2025 4:18 AM EDT 01/22/2025 4:18 AM EDT Uzair Wilson MD CHEMISTRY ORDERABLES Yamile l Result Performing Organization Address [facility] Co de Phone Number [facility] [address] [place] [address], [facility] [phone] * Lactate Dehydrogenase (01/22/2025 4:18 AM EDT) LD 193 135 - 225 U/L 01/22/2025 4:18 AM EDT [facility] 01/22/2025 4:18 AM EDT 01/22/2025 4:18 AM EDT Uzair Wilson MD CHEMISTRY ORDERABLES Yamile l Result Performing Organization Address [facility] Co de Phone Number [facility] [address] [place] [address], [facility] [phone] * Lactic Acid (01/22/2025 4:18 AM EDT) Lactic Acid, Whole Blood 1.3 0.7 - 2.1 mmol/L 01/22/2025 4:18 AM EDT [facility] 01/22/2025 4:18 AM EDT 01/22/2025 4:18 AM EDT Uzair Wilson MD CHEMISTRY ORDERABLES Yamile l Result Performing Organization Address [facility]/ZIP Co de Phone Number [facility] [address] [place] [address] * (ABNORMAL) Haptoglobin (01/22/2025 4:18 AM EDT) Haptoglobin 381(H) 30 - 200 mg/dL 01/22/2025 4:18 AM EDT [facility] 01/22/2025 4:18 AM EDT 01/22/2025 4:18 AM EDT Uzair Wilson MD CHEMISTRY ORDERABLES Yamile l Result Performing Organization Address [facility] Phone Number [facility] [address] [place] [address] * CK (01/22/2025 4:18 AM EDT) Total CK 62 39 - 308 U/L 01/22/2025 4:18 AM EDT [facility] 01/22/2025 4:18 AM EDT 01/22/2025 4:18 AM EDT Uzair Wilson MD CHEMISTRY ORDERABLES Yamile l Result Performing Organization Address [facility] Co de Phone Number [facility] [address] [place] [address] * (ABNORMAL) APTT (01/22/2025 4:07 AM EDT) APTT 66.5(H) 23.0 - 36.5 sec 01/22/2025 4:07 AM EDT [facility] Comment: IV Heparin Therapy Range: 66.0-92.0 sec Blood BLOOD SPECIMEN / Unknown 01/22/2025 4:07 AM EDT 01/22/2025 4:10 AM EDT Milind Corley MD HEMATOLOGY ORDERABLES Final Res ult Performing Organization Address [facility] Co de Phone Number [facility] [address] [place] [address], [facility] [phone] * Protime-INR (01/22/2025 4:07 AM EDT) Protime 14.2 11.7 - 14.9 sec 01/22/2025 4:07 AM EDT [facility] INR 1.1 01/22/2025 4:07 AM EDT [facility] Comment: Therapeutic Range: Moderate Anticoagulant Intensity: INR = 2.0-3.0 High Anticoagulant Intensity: INR = 2.5-3.5 01/22/2025 4:07 AM EDT 01/22/2025 4:10 AM EDT Milind Corley MD HEMATOLOGY ORDERABLES Final Res ult Performing Organization Address [facility] de Phone Number [facility] [address] [place] [address], [facility] [phone] from Last [address] [place] [address] Advance Directives Documents on File Type Date Recorded Patient Production Dispatcher Expl anation ACP-Advance Directive 01/28/2025 7:41 PM * Full Code (Latest Code Status on File) Date Activated Date Inactivated Comments 01/22/2025 3:47 AM 01/27/2025 2:42 PM Care Teams Child Care Cook Relationship Specialty Start Date End Date Davion Stephenson DO [address] [place] [address] PCP - General Family Medicine 01/22/25
--- OUTSIDE RECORDS SUMMARY | 2025-01-31 09:10 | XMS_ITS | Encounter Summary ---
Author Organization [employer] [facility] Address [id number] [address] [place] [address] Care Team Providers Care Retail Reset Merchandiser Name Role Phone Davion Stephenson Primary Care Provider + [phone] Encounter Details Date Type Department Care Team (Late st Contact Info) Description 01/28/2025 Orders Only [facility] Internal Medicine - Family Medicine [address] [place] [address] Ref Prov, [place] [address] Social History Tobacco Use Types Packs/Day Years Used Date Smoking Tobacco: Former Cigarettes 1.7 45.3 0 1979 - 12/22/2024 Smokeless Tobacco: Former Comments:Reports quit 2 ken hs ago Alcohol Use Standard Drinks/Week Comments Not Currently 0 (1 standard drink = 0.6 oz pur e alcohol) [facility] Utilities Answer Date Recorded In the past 12 months has [employer] electric, gas, oil, or water company threatened [...] week 07/08/2024 How often do you attend methodist or anglican serv ices? Never 07/08/2024 Do you belong to any clubs o r organizations such as methodist groups, unions, fraternal or athletic groups, or [...] PHQ-2 Answer Date Recorded Total Score 0 01/13/2025 [facility] - Occupational Stress [...] Recorded Do you need help finding a [facility] and/or a training program? No 07/08/2024 Hunger Screening Answer Date Recorded Within the past 12 months we worried whether our food would run out before we got money to buy more. Never True 01/13/2025 Within the past 12 months th e food we bought just didn't last and we didn't have money to get more. Never True 01/13/2025 Purpose - Life Answer Date Recorded I [...] Medicine - Family Medicine [address] [place] [address] Davion Stephenson DO [address] [facility] [address] documented as of this encounter Procedures Procedure Name Priority Date/Time Associated Diagnosis Comments CT ABDOMEN AND PELVIS W CONT Routine 01/21/2025 9:19 AM EDT documented in this encounter Results * CT abdomen and pelvis with contrast (01/21/2025 9:19 AM EDT) Anatomical Region Laterality Modality Body, Abdomen, Body Covera N/A Compu ana Tomography us Not In System Ref Prov IMG CT ORDERABLES Final R esult documented in this encounter Visit Diagnoses Not on filedocumented in this encounter Additional Health Concerns Assessment Noted Time PHQ-9 Depression Total Score: 0 01/14/20 25 1:49 PM EDT documented as of this encounter Care Teams Retail Reset Merchandiser Relationship Specialty Start Date End Date Davion Stephenson DO [address] [facility] [place] [address] PCP - General Family Medicine 07/10/22 documented as of this encounter
--- OUTSIDE RECORDS SUMMARY | 2025-01-31 09:10 | XMS_ITS | Clinical Summary ---
Author Organization [employer] tem Address [id number] [address] [place] [address] Care Team Providers Care Jukebox Routeman Name Role Phone Davion Stephenson DO Primary Care Provider [phone] Allergies No known active allergies Medications rosuvastatin (CRESTOR) 10 mg tabletIndication s:Hyperlipidemia , unspecified Take 1 tablet (10 mg total) by mouth in the morning. 90 tablet 3 06/09/2024 Active aspirin 81 mg capsule Take 81 mg by mouth in the morning. 07/08/2024 Active Active Problems Problem Noted Date Diagnosed Date Elevated PSA 08/09/2022 Enlarged prostate with urinary obstruction 08/09 Dependence on nicotine from cigarettes 2 Hyperlipidemia 03/18/2022 Abdominal aortic aneurysm (AAA) 02/01/2022 Assessment & Plan (12/23/2024 10:41 AM EDT): EVAR, Procedure risks and alternatives were explained and informed consent was obtained Assessment & Plan (12/02/2024 11:07 AM EDT): Discussed cardiac risk stratification. Discussed open and endovascular options. Discussed risk benefits and alternatives of each. He would like to make decisions about endovascular versus open after his stress test and echo. Assessment & Plan (11/25/2024 10:56 AM EDT): CTA Aorta. Discussed with him getting CTA and risk stratification. Discussed EVAR and open repair options. Discussed procedure risk benefits and alternatives of each. We will start with a CTA. Will get it stat Resolved Problems Problem Noted Date Diagnosed Date Resolved Date Depression 08/09/2022 02/14/2023 Encounters Date Type Department Care Team Description 01/28/2025 Orders Only [facility] - Family Medicine [address] [place] [address] Ref Prov, Not In System 01/13/2025 2:00 PM EDT Office Visit [facility] [address] [place] [address] Davion Stephenson DO Abdominal aortic aneurysm (AAA) without rupture, unspecified part (Primary Dx); Ex-cigarette smoker; Elevated blood pressure reading 01/13/2025 Travel 01/13/2025 Orders Only [facility] - Family Medicine [address] [place] [address] Ref Prov, Not In System 01/05/2025 Telephone [facility] - [facility] Medicine [address] [place] [address] Vanessa Umaña CMA 01/05/2025 Orders Only [facility] - Family Medicine [address] [place] [address] Ref Prov, Not In System 12/23/2024 10:00 AM EDT Office Visit [facility] [address] [place] [phone] April Thompson MD Abdominal aortic aneurysm (AAA) without rupture, unspecified part (Primary Dx) 12/23/2024 Travel 12/02/2024 10:40 AM EDT Office Visit [facility] [address] [place] [phone] April Thompson MD Abdominal aortic aneurysm (AAA) without rupture, unspecified part (Primary Dx) 12/02/2024 Travel 11/25/2024 11:39 AM EDT - 11/25/2024 11:59 PM EDT Hospital Encounter [facility] [address] [place] [address] April Thompson MD Aortic aneurysm without rupture, unspecified portion of aorta (CMS-HCC); Abdominal aortic aneurysm (AAA) without rupture, unspecified part (CMS-HCC) Discharge Disposition: Home 11/25/2024 10:30 AM EDT Office Visit [facility] [address] [place] [phone] April Thompson MD Abdominal aortic aneurysm (AAA) without rupture, unspecified part (CMS-HCC) (Primary Dx); Aortic aneurysm without rupture, unspecified portion of aorta (CMS-HCC) 11/25/2024 Travel 11/22/2024 Orders Only [facility] - [facility] Medicine [address] [place] [address] Alejandrina Felipe CMA Abdominal aortic aneurysm (AAA) without rupture, unspecified part (CMS-HCC) 11/19/2024 Orders Only [facility] - Family Medicine [address] [place] [address] Fátima Carver, YANCY-MOOSE Aortic aneurysm without rupture, unspecified portion of aorta ([facility]-HCC) (Primary Dx) 11/19/2024 Telephone [facility] [address] [place] [address] Delphine Louis, A ultra sound result 11/15/2024 8:30 AM EDT Office Visit [facility] - Family Medicine [address] [place] [address] Davion Stephenson DO Abdominal aortic aneurysm (AAA) without rupture, unspecified part ([facility]-HCC) (Primary Dx); Cigarette smoker; Mixed hyperlipidemia 11/15/2024 Travel from Last 3 Months Family History Medical History Relation Name Comments Lung cancer Father Breast cancer Mother Relation Name Status Comments Father Mother Social History Tobacco Use Types Packs/Day Years Used Date Smoking Tobacco: Former Cigarettes 1.7 45.3 0 1979 - 12/22/2024 Smokeless Tobacco: Former Tobacco Cessation:Counseling Given: Not Answered Comments:Reports quit 2 months ago Alcohol Use Standard Drinks/Week Comments Not Currently 0 (1 standard drink = 0.6 oz pur e alcohol) [facility] Utilities Answer Date Recorded In the [...] week 07/08/2024 How often do you attend druze or mandaeism serv ices? Never 07/08/2024 Do you belong to any clubs o r organizations such as druze groups, unions, fraternal or athletic groups, or [...] Answer Date Recorded Total Score 0 01/13/2025 [facility] - [...] Recorded Do you need help finding a [facility] career center and/or a training program? No [...] Sign Reading Time Taken Comments Blood Pressure 118/72 01/13/2025 1:51 PM EDT Pulse 78 01/13/2025 1:51 PM EDT Temperature 37.4 C (99.4 F) 01/13/2025 1:51 PM EDT Respiratory Rate 18 01/13/2025 1:51 PM EDT Oxygen Saturation 97% 01/13/2025 1:51 PM EDT Inhaled Oxygen Concentration - - Weight 77.2 kg (170 lb 3.2 oz) 01/13/2025 1:51 P M EDT Height 180.3 cm (5' 10.98 ) 01/13/2025 1:51 PM E DT Body Mass Index 23.75 01/13/2025 1:51 PM EDT Plan of Treatment Upcoming Encounters Date Type Department Care Team (Late st Contact Info) Description 07/11/2025 10:30 AM EST Office Visit [facility] - Family Medicine [address] [place] [address] Davion Stephenson DO [address] [place] [address] Health Maintenance Due Date Last Done Comments Zoster (Shingles) Vaccine (1 of 2) 2010 Influenza Vaccine 05/02/2025 DTaP,Tdap and Td Vaccines (1 - Tdap) 09/01/2025 Postponed from 09/02 (Patient Refused) Adult BMI Screening 01/13/2026 01/13/2025 Depression Screening 01/13/2026 01/13/2025 Tobacco Screening 01/13/2026 01/13/2025 Medical Devices Not on file Procedures Procedure Name Priority Date/Time Associated Diagnosis Comments CT ABDOMEN AND PELVIS W CONT Routine 01/21/2025 9:19 AM EDT MULTIPLE LABS Routine 12/27/2024 10:57 AM EDT NUC STRESS LEXISCAN Routine 12/10/2024 1 0:51 AM EDT NM BONE SCAN WHOLE BODY Routine 12/11/19 25 7:[address] CTA ABD AORTA W RUNOFF STAT 11/25/2024 12:28 PM EDT Aortic aneurysm without rupture, unspecified portion of aorta (CMS-HCC) Abdominal aortic aneurysm (AAA) without rupture, unspecified part (CMS-HCC) US RETROPERITONEAL LIMITED Routine 11/22/2024 10:00 AM EDT Abdominal aortic aneurysm (AAA) without rupture, unspecified part (CMS-HCC) from Last 3 Months Results * CT abdomen and pelvis with contrast (01/21/2025 9:19 AM EDT) Anatomical Region Laterality Modality Body, Abdomen, Body Covera N/A Compu ana Tomography us Not In System Ref Prov IMG CT ORDERABLES Final R esult * Multiple labs (12/27/2024 10:57 AM EDT) us Not In System Ref Prov LA IMAGING Final Res ult Performing Organization Address [facility]/State/ZIP Co de Phone Number MANUALLY TRANSCRIBED RESULTS * Nuc stress Lexiscan (12/10/2024 10:51 AM EDT) Anatomical Region Laterality Modality Chest N/A Nuclear Medicine us Not In System Ref Prov CV STRESS ORDERABLES Yamile l Result * NM bone scan whole body (12/10/2024 7:59 AM EDT) Anatomical Region Laterality Modality Nuc Med N/A Nuclear Medicine us Not In System Ref Prov IMG NM ORDERABLES Final R esult * CT angiogram abdominal aorta with runoff (11/25/2024 12:28 PM EDT) Anatomical Region Laterality Modality Body, Abdomen, Body Covera N/A Compu ana Tomography 11/25/2024 1:01 PM EDT Narrative 11/25/2024 1:[address] CTA ABD AORTA W RUNOFF Clinical [...] Hira Mcduffie MD on 11/25/2024 1:10 PM Procedure Note Hira Mcduffie MD - 11/25/2024 CT CTA ABD AORTA W RUNOFF Clinical information: Aortic aneurysm without rupture, unspecified portionof aorta; Abdominal aortic aneurysm (AAA) without rupture, unspecifiedpart. Peripheral arterial disease. Comparison: None PROCEDURE: CT angiogram of the abdomen and pelvis with runoff through thefeet bilaterally. CT angiogram images obtained with IV contrast.Cross-sectional 3-D maximum intensity projection reformats constructedunder concurrent physician supervision on a independent workstation forevaluation of arterial structures. All CT scans at this facility use dose modulation,iterative reconstruction, and/or weight based dosing when appropriate toreduce radiation dose to as low as reasonably achievable. FINDINGS: Vascular findings: Abdominal aorta: Fusiform infrarenal abdominal aortic aneurysm witheccentric mural thrombus measuring up to 5.3 cm. There is scatteredatherosclerotic calcification. Celiac: Within normal limits. SMA: Within normal limits. Renal arteries: Mild atherosclerotic plaque at the ostium of the bilateralrenal arteries without significant stenosis. ROSALBA: Originates from the anterior inferior aspect of the fusiform aneurysmwith mild stenosis at the ostium, otherwise unremarkable. Common iliac arteries: Moderate scattered atherosclerotic plaque withmoderate stenosis. Internal iliac arteries: Mild scattered atherosclerotic plaque, otherwiseunremarkable. Right lower extremity: The extraluminal iliac and common femoral arteriesare patent with mild atherosclerotic plaque. No significant stenosis.Normal profunda SFA bifurcation. The right SFA has mild atheroscleroticplaque at the abductor canal without significant stenosis. Right poplitealartery is patent with mild atherosclerotic calcification. There is normalthree-vessel runoff to the right foot. Mild atherosclerotic calcificationof the proximal anterior tibial and tibioperoneal trunk with mildstenosis. Left lower extremity: The external iliac and common femoral arteries arepatent with mild atherosclerotic plaque. Normal profunda SFA bifurcation.The left SFA is normal in course and caliber with mild atheroscleroticcalcification at the abductor canal without significant stenosis.Popliteal artery is patent with mild atherosclerotic calcification. Mild atheroscleroticplaque in the proximal tibioperoneal trunk and anterior tibial artery withmild stenosis. Otherwise normal three-vessel runoff to the left foot. Other findings: Atelectasis with emphysematous changes at the lung bases. There are simple cysts in the liver. Largest in the left hepatic lobemeasuring 1.3 cm. No dedicated follow-up necessary. Gallbladder isunremarkable. No biliary dilatation. The pancreas, spleen, and adrenal glands are unremarkable. The kidneys enhance symmetrically. No hydronephrosis or ureteralobstruction. Urinary bladder contour is unremarkable. No intra-abdominalfree air or free fluid. No small bowel obstruction. Appendix is normal.Colon is unremarkable by CT. No acute osseous abnormalities. IMPRESSION: 1. Fusiform infrarenal abdominal aortic aneurysm measuring 5.3 cm witheccentric mural thrombus. 2. Atherosclerotic calcification at the aortic bifurcation and proximalcommon iliac arteries causing moderate stenosis. 3. Mild scattered atherosclerotic calcification at the bilateralsuperficial femoral arteries and proximal tibial arteries withoutsignificant stenosis. Otherwise normal three-vessel runoff to the feetbilaterally. 4. Detailed vascular findings and additional chronic findings as above. Finalized by Hira Mcduffie MD on 11/25/2024 1:10 PM us April Thompson MD IMG CT ORDERABLES Final Resul t * Ultrasound retroperitoneal limited (11/22/2024 10:00 AM EDT) Anatomical Region Laterality Modality Body Ultrasound us Davion Stephenson DO IMG US ORDERABLES Final Resu lt from Last 3 Months Insurance [id number] PLAN Care Teams Jukebox Routeman Relationship Specialty Start Date End Date Davion Stephenson DO [address] [facility], [place] [address] PCP - General Family Medicine 07/10/22
--- OUTSIDE RECORDS SUMMARY | 2025-01-31 09:10 | XMS_ITS | Encounter Summary ---
Author Organization [employer] tem Address [id number] [address] [place] [address] Care Team Providers Care Medical Services Assistant Name Role Phone Davion Stephenson Primary Care Provider + [phone] Encounter Details Date Type Department Care Team (Late st Contact Info) Description 01/05/2025 Telephone [facility] Internal Medicine - Family Medicine [address] [place] [place] [phone] Vanessa Umaña CMA Social History Tobacco Use Types Packs/Day Years Used Date Smoking Tobacco: Former Cigarettes 0.5 20 Smokeless Tobacco: Former Comments:Reports quit 2 ken hs ago Alcohol Use Standard Drinks/Week Comments Not Currently 0 (1 standard drink = 0.6 oz pur e alcohol) [facility] Utilities Answer Date Recorded In the past 12 months has [employer] electric, gas, oil, or water company threatened [...] week 07/08/2024 How often do you attend presybeterian or pentecostalism serv ices? Never 07/08/2024 Do you belong to any clubs o r organizations such as presybeterian groups, unions, fraternal or athletic groups, or [...] Answer Date Recorded Total Score 0 11/15/2024 [facility] - Occupational Stress [...] Recorded Do you need help finding a [facility] career center and/or a training [...] - Family Medicine [address] [place] [address] Davion Stephenson DO [address] [facility] [place] [address] documented as of this encounter Visit Diagnoses Not on filedocumented in this encounter Additional Health Concerns Assessment Noted Time PHQ-9 Depression Total Score: 0 11/16/19 25 8:29 AM EDT documented as of this encounter Care Teams Medical Services Assistant Relationship Specialty Start Date End Date Davion Stephenson DO [address] [facility] [place] [address] PCP - General Family Medicine 07/10/22 documented as of this encounter
--- OUTSIDE RECORDS SUMMARY | 2025-01-31 09:10 | XMS_ITS | Encounter Summary ---
Author Organization [employer] tem Address [id number] [address] [place] [address] Care Team Providers Care Casualty Claims Supervisor Name Role Phone Davion Stephenson Primary Care Provider + [phone] Encounter Details Date Type Department Care Team (Late st Contact Info) Description 01/13/2025 Orders Only [facility] Internal Medicine - Family Medicine [address] [place] [address] Ref Prov, [place] [address] Social History Tobacco Use Types Packs/Day Years Used Date Smoking Tobacco: Former Cigarettes 1.7 45.3 0 1979 - 12/22/2024 Smokeless Tobacco: Former Comments:Reports quit 2 ken hs ago Alcohol Use Standard Drinks/Week Comments Not Currently 0 (1 standard drink = 0.6 oz pur e alcohol) [facility] Utilities Answer Date Recorded In the past 12 months has [employer] electric, gas, oil, or water company threatened [...] How often do you attend mandaeism or shinto serv ices? Never 07/08/2024 Do you belong [...] Answer Date Recorded Total Score 0 01/13/2025 [facility] - [...] Recorded Do you need help finding a [facility] career [facility] and/or a training [...] a purpose and direction in my life. Parminder gly Agree 07/08/2024 Sex and Gender Information [...] Medicine - Family Medicine [address] [place] [address] Davion Stephenson DO [address] [facility], [place] [address] documented as of this encounter Procedures Procedure Name Priority Date/Time Associated Diagnosis Comments MULTIPLE LABS Routine 12/27/2024 10:57 AM EDT NUC STRESS LEXISCAN Routine 12/10/2024 10:51 AM EDT documented in this encounter Results * Multiple labs (12/27/2024 10:57 AM EDT) us Not In System Ref Prov RI IMAGING Final Res ult MANUALLY TRANSCRIBED RESULTS * Nuc stress Lexiscan (12/10/2024 10:51 AM EDT) Anatomical Region Laterality Modality Chest N/A Nuclear Medicine us Not In System Ref Prov CV STRESS ORDERABLES Yamile l Result documented in this encounter Visit Diagnoses Not on filedocumented in this encounter Additional Health Concerns Assessment Noted Time PHQ-9 Depression Total Score: 0 01/14/20 25 1:49 PM EDT documented as of this encounter Care Teams Casualty Claims Supervisor Relationship Specialty Start Date End Date Davion Stephenson DO [address] [facility], [place] [address] PCP - General Family Medicine 07/10/22 documented as of this encounter
--- OUTSIDE RECORDS SUMMARY | 2025-01-31 09:10 | XMS_ITS | Encounter Summary ---
Author Organization [employer] tem Address [facility]-[id number] [address] [place] [address] Care Team Providers Care Foundation Drill Operator Name Role Phone Davion Stephenson DO Primary Care Provider + [phone] Encounter Details Date Type Department Care Team ([facility] Contact Info) Description 11/29/2022 Orders Only [facility] Internal Medicine - Family Medicine [address] [place] [address] Vesta Schwartz, TAX AUDIT MANAGER-DYE TUB OPERATOR [address] [place] [address] [place] [address] Social History Tobacco Use Types Packs/Day Years Used Date Smoking Tobacco: Former Cigarettes 0.5 20 Smokeless Tobacco: Never Alcohol [...] Encounters Date Type Department Care Team (Late Contact Info) Description 07/11/2025 10:30 AM EST Office Visit [facility] - Family Medicine [address] [place] [address] Davion Stephenson DO [address] [place] [address] documented as of this encounter Visit Diagnoses Not on filedocumented in this encounter Care Teams Foundation Drill Operator Relationship Specialty Start Date End Date Davion Stephenson DO [address] [place] [address] PCP - General Family Medicine 07/10/22 documented as of this encounter
[2025-01-31 09:36] LABS: Basophils Percent Auto 0.5 % (0.2-2.0); Eosinophils Absolute Auto 0.1 10^3/uL (0.0-0.7); Eosinophils Percent Auto 1.3 % (0.9-7.0); Hematocrit 39.1 % (42.0-54.0); Hemoglobin 13.1 g/dL (14.0-18.0); Immature Granulocytes Abs Auto 0.07 10^3/uL (0.00-0.03); Immature Granulocytes Pct Auto 0.8 % (0.0-0.5); Lymphocytes Absolute Auto 1.5 10^3/uL (1.2-3.8); Lymphocytes Percent Auto 16.7 % (20.5-60.0); Mean Corpuscular HGB Conc 33.5 g/dL (29.9-35.2); Mean Corpuscular Hemoglobin 29.4 pg (25.9-34.0); Mean Corpuscular Volume 87.7 fL (80.0-94.0); Monocytes Percent Auto 11.1 % (1.7-12.0); Neutrophils Absolute Auto 6.1 10^3/uL (1.4-6.5); Neutrophils Percent Auto 69.6 % (43.0-75.0); Platelet Count 54 10^3/uL (150-450); Red Blood Count 4.46 10^6/uL (4.70-6.10); Red Cell Distribution Width 14.4 % (11.0-15.0); White Blood Count 8.7 10^3/uL (4.0-11.0)
== END 2025-01-31 09:03 | disposition home or self-care (01) ==
PROVIDERS: PCP Family Medicine
DX: A04.8 Other specified bacterial intestinal infections (principal); I71.40 Abdominal aortic aneurysm, without rupture, unspecified
CPT/HCPCS: 36415; 85025

== ENCOUNTER 2025-02-07 10:00 | Outpatient (RCR) | payer OTHER, SELFPAY ==
--- OUTSIDE RECORDS SUMMARY | 2025-01-22 03:32 | XMS_ITS | Encounter Summary ---
Author Organization [facility] [facility] Address [address] [place] [address] Care Team Providers Care Vp Director Of Finance Name Role Phone Davion Stephenson Primary Care Provider + [phone] Reason for Visit * Auth/Cert (Routine) Specialty Diagnoses / Procedures Referred By Fei guerra Referred To Contact Diagnoses Thrombocytopenia Uzair Wilson MD [address] [address] Phone: tel: fax: [facility] [address] [place] [address] Referral ID Status Reason Start Date Expiration Date Visits Re quested Visits Authorized [id number] 1 1 Encounter Details Date Type Department Care Team (Latest Contact Info) Description 01/22/2025 3:32 AM EDT - 01/27/2025 12:35 PM EDT Hospital Encounter [facility] 4C Onc/Med Surg [address] [place], [place] [id number] Uzair Wilson MD [address] [facility] [address] [place], [place] [id number] Anish Canada DO [address] [place] [address] Melisa Mejia MD [address] [facility] [address] [place] [address] H. pylori infection (Primary Dx); S/P AAA repair; Rash; Thrombocytopenia Discharge Disposition: Home or Self Care Social History Tobacco Use Types Packs/Day Years Used Date Smoking Tobacco: Former Cigarettes 0.5 34.2 S tarted: 09/01/1990 Smokeless Tobacco: Never Tobacco Cessation:Counseling Given: Yes Alcohol Use Standard Drinks/Week Comments Never 0 (1 standard drink = 0.6 oz pur e alcohol) [facility] Utilities Answer Date Recorded In the past 12 months has th e [employer], gas, oil, or water company threatened to shut off services in your home? No 01/22/2025 Hunger Vital Sign Answer Date Recorded Within the past 12 months, y ou worried that your food would run out before you got the money to buy more. Never true 01/23/20 25 Within the past 12 months, t he food you bought just didn't last and you didn't have money to get more. Never true 01/22/2025 PRAPARE - Transportation Answer Date Re corded In the past 12 months, has l ack of transportation kept you from medical appointments or from getting medications? No 12/31 In the past 12 months, has l ack of transportation kept you from meetings, work, or from getting things needed for daily living? No 01/22/2025 Housing Stability Vital Sign Answer Felipe e Recorded In the last 12 months, was t here a time when you were not able to pay the mortgage or rent on time? No 01/22/2025 In the past 12 months, how m any times have you moved where you were living? 0 01/22/2025 At any time in the past 12 m [facility], were you homeless or living in a group home (including now)? No 01/22/2025 Food Insecurity Answer Date Recorded Within the past 12 months, y ou worried that your food would run out before you got the money to buy more. 1 01/22/2025 Within the past 12 months, t he food you bought just didn't last and you didn't have money to get more. 1 01/22/2025 Interpersonal Safety Domain Source: IP Abuse Scr eening Answer Date Recorded Physical abuse Denies 01/22/2025 Verbal abuse Denies 01/22/2025 Emotional abuse Denies 01/22/2025 Financial abuse Denies 01/22/2025 Sexual abuse Denies 01/22/2025 Sex and Gender Information Value Date Recorded Sex Assigned at Not on file Legal Sex Male 1:20 PM EST Gender Identity Not on file Sexual Orientation Not on file documented as of this encounter Last Filed Vital Signs Vital Sign Reading Time Taken Comments Blood Pressure 139/78 01/27/2025 8:06 AM EDT Pulse 78 01/27/2025 8:06 AM EDT Temperature 36.5 C (97.7 F) 01/27/2025 8:06 AM EDT Respiratory Rate 22 01/27/2025 8:06 AM EDT Oxygen Saturation 100% 01/27/2025 8:06 AM EDT Inhaled Oxygen Concentration - - Weight 73.5 kg (162 lb) 01/26/2025 6:00 AM EDT Height 180.3 cm (5' 11 ) 01/22/2025 3:54 AM EDT Body Mass Index 22.59 01/22/2025 3:54 AM EDT documented in this encounter Discharge Summaries * Melisa Mejia MD - 01/27/2025 9:21 AM EDT Images from the original note were not included. [facility] Office: [phone] Harman Canada DO, Jose Alfredo Spear DO, Jose Yanes DO, Errol Mullins DO, Bridget Galarza MD, Zoë Ulrich MD, Mani Lopez MD, Cristela Raphael MD, Agustín Solorio MD, Preet Callahan MD, Melisa Mejia MD, Rolando Batista DO, Peri Strong MD, John Calix MD, Anish Canada DO, Felicia Capps MD, Tiburcio Duran DO, Naty Blankenship MD, Maryjo Murrell MD, Gopal Isabel MD, MD Dontae, Carroll Duque MD, Kirit Bowles MD, Agustin Obrien MD, Tyree Cuevas MD, Victor Manuel Carcamo MD, Mark Carrillo DO, Vanessa Cook MD, Alfa Cardozo DO, Tab Luis MD, Rolando Mercado MD, Jenna Mercado MD, Nguyen Estrada MD, Samantha Betts, SPECIAL TECHNICAL OPERATIONS OFFICER, Gertrude Currie, SPECIAL TECHNICAL OPERATIONS OFFICER, Mark Mata, SPECIAL TECHNICAL OPERATIONS OFFICER, Daphne Piña, [facility], Nicole Olivas, SPECIAL TECHNICAL OPERATIONS OFFICER, Alesha Hutchison, SPECIAL TECHNICAL OPERATIONS OFFICER, Mary Sands, SPECIAL TECHNICAL OPERATIONS OFFICER, Chanel Price, SPECIAL TECHNICAL OPERATIONS OFFICER, Lisbeth Desai, [employer], Danelle Rosas, SPECIAL TECHNICAL OPERATIONS OFFICER, Velma De La Cruz, SPECIAL TECHNICAL OPERATIONS OFFICER, Kathya Kim, SPECIAL TECHNICAL OPERATIONS OFFICER, Corina Hayward, SPECIAL TECHNICAL OPERATIONS OFFICER, Taurus Esteban PADannyC, Linda Chino, SPECIAL TECHNICAL OPERATIONS OFFICER, Alicia Blackman, [facility], Mendy Fajardo, SPECIAL TECHNICAL OPERATIONS OFFICER, Nedra Isbell, SPECIAL TECHNICAL OPERATIONS OFFICER, Itzel Luna, SPECIAL TECHNICAL OPERATIONS OFFICER [facility] IN-PATIENT SERVICE [facility] Discharge Summary Patient ID: Ambrosio Ramírez : 1960 ACCOUNT: [id number] Patient's PCP: Davion Stephenson DO Admit Date: 01/22/2025 Discharge Date: 01/27/2025 Length of Stay: 5 Code Status: Full Code Admitting Physician: No admitting provider for patient encounter. Discharge Physician: Melisa Mejia MD Active Discharge Diagnoses: Hospital Problem Lists: Principal Problem: Thrombocytopenia Active Problems: Rash S/P AAA repair H. pylori infection Resolved Problems: * No resolved hospital problems. * Admission Condition: stable Discharged Condition: stable Hospital Stay: Hospital Course: Ambrosio Ramírez is a 64 y.o. male who was admitted for the management of Thrombocytopenia , presented to ER with bleeding. 64-year-old male past medical history of hypertriglyceridemia, AAA repair, presents with bleeding from femoral site, had some blisters in his mouth and was found to have acute thrombocytopenia. Patient was evaluated by hematology oncology. He received IVIG as well as Decadron for 4 days. Patient found to be positive for H. pylori and started on quadruple therapy. Significant therapeutic interventions: n/a Significant Diagnostic Studies: Labs / Micro: CBC: Lab Results Component Value Date/Time WBC 7.5 01/27/2025 06:04 AM RBC 3.77 01/27/2025 06:04 AM HGB 10.9 01/27/2025 06:04 AM HCT 33.2 01/27/2025 06:04 AM MCV 88.1 01/27/2025 06:04 AM MCH 28.9 01/27/2025 06:04 AM MCHC 32.8 01/27/2025 06:04 AM RDW 13.3 01/27/2025 06:04 AM PLT See Reflexed IPF Result 01/27/2025 06:04 AM BMP: Lab Results Component Value Date/Time GLUCOSE 81 01/27/2025 06:04 AM NA 131 01/27/2025 06:04 AM K 4.3 01/27/2025 06:04 AM CL 102 01/27/2025 06:04 AM CO2 21 01/27/2025 06:04 AM ANIONGAP 8 01/27/2025 06:04 AM BUN 15 01/27/2025 06:04 AM CREATININE 0.7 01/27/2025 06:04 AM CALCIUM 8.2 01/27/2025 06:04 AM LABGLOM >90 01/27/2025 06:04 AM Radiology: CT CHEST W CONTRAST Result Date: 01/23/2025 1. No evidence of malignancy in the chest. 2. Mild centrilobular emphysema. 3. Coronary artery atherosclerosis. 4. Hepatic steatosis. US LIVER SPLEEN Result Date: 01/22/2025 1. Unremarkable right upper quadrant ultrasound. 2. Normal spleen. XR CHEST PORTABLE Result Date: 01/22/2025 No acute pulmonary findings. Consultations: Consults: Final Specialist Recommendations/Findings: IP CONSULT TO HEM/ONC The patient was seen and examined on day of discharge and this discharge summary is in conjunction with any daily progress note from day of discharge. Discharge plan: Disposition: Home Physician Follow Up: Davion Stephenson, DO [address] [place] [address] Follow up Joseph Kwong MD [address] [facility] [address] Follow up Requiring Further Evaluation/Follow Up POST HOSPITALIZATION/Incidental Findings: follow up PCP Diet: regular diet Activity: As tolerated Instructions to Patient: Follow up PCP Discharge Medications: Medication List START taking these medications bismuth subsalicylate 262 MG/15ML suspension Commonly known as: PEPTO BISMOL Take 30 mLs by mouth 4 times daily for 52 doses metroNIDAZOLE 500 MG tablet Commonly known as: FLAGYL Take 1 tablet by mouth in the morning, at noon, in the evening, and at bedtime for 52 doses pantoprazole 40 MG tablet Commonly known as: PROTONIX Take 1 tablet by mouth 2 times daily (before meals) for 14 days polyethylene glycol 17 g packet Commonly known as: GLYCOLAX Take 1 packet by mouth daily as needed for Constipation predniSONE 20 MG tablet Commonly known as: DELTASONE Take 1 tablet by mouth daily for 7 doses rosuvastatin 10 MG tablet Commonly known as: CRESTOR Take 1 tablet by mouth nightly for 30 doses tetracycline 500 MG capsule Commonly known as: ACHROMYCIN;SUMYCIN Take 1 capsule by mouth 4 times daily for 52 doses Where to Get Your Medications These medications were sent to [id number] - [place], [place] - [address] - P [phone] - F [phone] [place] [address] metroNIDAZOLE 500 MG tablet pantoprazole 40 MG tablet polyethylene glycol 17 g packet predniSONE 20 MG tablet rosuvastatin 10 MG tablet tetracycline 500 MG capsule You can get these medications from any pharmacy You don't need a prescription for these medications bismuth subsalicylate 262 MG/15ML suspension Discharge Procedure Orders CBC with Auto Differential Standing Status: Future Standing Exp. Date: 01/27/26 Order Comments: Forward results to Davion Stephenson DO CBC Standing Status: Standing Number of Occurrences: 6 Standing Exp. Date: 01/27/26 Time Spent on discharge is 34 mins in patient examination, evaluation, counseling as well as medication reconciliation, prescriptions for required medications, discharge plan and follow up. Electronically signed by Melisa Mejia MD 01/27/2025 10:43 AM Thank you Davion Ulloa DO for the opportunity to be involved in this patient's care. documented in this encounter Discharge Instructions * Discharge Instructions* Mili Weinberg RN - 01/27/2025 9:41 AM EDT CBC 2x weekly documented in this encounter Medications at Time of Discharge metroNIDAZOLE (FLAGYL) 500 MG tablet Take 1 tablet by mouth in the morning, at noon, in the evening, and at bedtime for 52 doses 52 tablet 01/27/2025 02/10/20 25 tetracycline (ACHROMYCIN;SUMYCI N) 500 MG capsule Take 1 capsule by mouth 4 times daily for 52 doses 52 capsule 01/27/2025 02/10/20 25 rosuvastatin (CRESTOR) 10 MG tablet Take 1 tablet by mouth nightly for 30 doses 30 tablet 01/27/2025 02/27/20 25 bismuth subsalicylate (PEPTO BISMOL) 262 MG/15ML suspension Take 30 mLs by mouth 4 times daily for 52 doses 01/27/2025 02/10/20 25 pantoprazole (PROTONIX) 40 MG tablet Take 1 tablet by mouth 2 times daily (before meals) for 14 days 28 tablet 01/27/2025 02/11/20 25 polyethylene glycol (GLYCOLAX) 17 g packet Take 1 packet by mouth daily as needed for Constipation 30 packet 01/27/2025 02/27/20 25 predniSONE (DELTASONE) 20 MG tablet Take 1 tablet by mouth daily for 7 doses 7 tablet 01/27/2025 02/04/20 25 documented as of this encounter Progress Notes * Mili Weinberg RN - 01/27/2025 12:36 PM EDT Patient educated on discharge instructions * Nadeen Almaguer - 01/27/2025 10:40 AM EDT Pt has no rx coverage and high copays; RN called rx to state that pt wants to get them filled at his pharmacy- leader writer asked RN to have dr powercel and re-send * Robel Mccormack MD - 01/27/2025 9:33 AM EDT Images from the original note were not included. Today's Date: 01/27/2025 Patient Name: Ambrosio Ramírez Date of admission: 01/22/2025 3:32 AM Patient's age: 64 y.o., 1960 Admission Dx: Thrombocytopenia [D69.6] Reason for Consult: management recommendations Requesting Physician: No admitting provider for patient encounter. CHIEF COMPLAINT: Thrombocytopenia. Rash. History Obtained From: patient, electronic medical record Interval Changes: Patient seen and examined at bedside. Chart, labs and vitals reviewed. No acute overnight events Resting comfortably Platelet count up to 29,000 however immature platelet fraction dropped to 14.5 Wants to go home HISTORY OF PRESENT ILLNESS: The patient is a 64 y.o. male who is transferred from outside facility to [facility] for higher level of care. Patient initially presented to the [facility] with chief complaint of bleeding from access site in the right groin for his AAA repair. Patient was taking a shower and noticed flecks of blood on the dressing at the exit site. Patient went to the ER for checkup. Lab workup shows platelet count of 4000 patient also noted to have diffuse petechiae including blood-filled blisters in his mouth. Denies any dark bowel movements. Denies any recent illness. Denies abdominal pain. Patient underwent CT abdomen pelvis which showed patent graft and 4.8 cm thrombosed inf rarenal fusiform abdominal aorta with no leak. No abdominal bleeding noted. Patient started on high-dose Decadron 40 mg daily. Patient being closely monitored in the ICU. Lab workup done so far shows negative hepatitis panel. Cultures so far negative H. pylori testing pending. HIT antibody panel pending. Platelet count from this morning was 2. ONOFRE screen pending COVIDtest negative HIV screen negative Past Medical History: Aortic aneurysm Past Surgical History: Aortic aneurysm repair Medications: Prior to Admission medications Medication Sig Start Date End Date Taking? Authorizing Provider metroNIDAZOLE (FLAGYL) 500 MG tablet Take 1 tablet by mouth in the morning, at noon, in the evening, and at bedtime for 52 doses 01/27/25 02/09/25 Yes Melisa Mejia MD tetracycline (ACHROMYCIN;SUMYCIN) 500 MG capsule Take 1 capsule by mouth 4 times daily for 52 doses01/27/25 02/09/25 Yes Melisa Mejia MD rosuvastatin (CRESTOR) 10 MG tablet Take 1 tablet by mouth nightly for 30 doses 01/27/25 02/26/25 YesMelisa Mejia MD bismuth subsalicylate (PEPTO BISMOL) 262 MG/15ML suspension Take 30 mLs by mouth 4 times daily for 52 doses 01/27/25 02/09/25 Yes Melisa Mejia MD pantoprazole (PROTONIX) 40 MG tablet Take 1 tablet by mouth 2 times daily (before meals) for 14 days 01/27/25 02/10/25 Yes Melisa Mejia MD polyethylene glycol (GLYCOLAX) 17 g packet Take 1 packet by mouth daily as needed for Constipation 01/27/25 02/26/25 Yes Melisa Mejia MD Current Facility-Administered Medications Medication Dose Route Frequency Provider Last Rate Last Admin predniSONE (DELTASONE) tablet 20 mg 20 mg Oral Daily Robel Mccormack MD bismuth subsalicylate (PEPTO BISMOL) 262 MG/15ML suspension 30 mL 30 mL Oral 4x Daily Melisa Mejia MD 30 mL at 01/27/25 0817 pantoprazole (PROTONIX) tablet 40 mg 40 mg Oral BID AC Melisa Mejia MD 40 mg at 01/27/25 05 tetracycline (ACHROMYCIN;SUMYCIN) capsule 500 mg 500 mg Oral 4x Daily Melisa Mejia MD 500 mg at 01/27/25 0817 metroNIDAZOLE (FLAGYL) tablet 500 mg 500 mg Oral 4 times per day Melisa Mejia MD 500 mg at 01/27/25 0556 rosuvastatin (CRESTOR) tablet 10 mg 10 mg Oral Nightly Motwani, Lakshya, MD 10 mg at 01/26/25 2018 sodium chloride flush 0.9 % injection 5-40 mL 5-40 mL IntraVENous 2 times per day Vitor Joseph MD 10 mL at 01/27/25 0818 sodium chloride flush 0.9 % injection 5-40 mL 5-40 mL IntraVENous PRN Vitor Joseph MD 0.9 % sodium chloride infusion IntraVENous PRN Vitor Joseph MD Stopped at 01/23/25 0854 potassium chloride 20 mEq/50 mL IVPB (Central Line) 20 mEq IntraVENous PRN Vitor Joseph MD Or potassium chloride 10 mEq/100 mL IVPB (Peripheral Line) 10 mEq IntraVENous PRN Vitor Joseph MD magnesium sulfate 2000 mg in 50 mL IVPB premix 2,000 mg IntraVENous PRN Vitor Joseph MD ondansetron (ZOFRAN-ODT) disintegrating tablet 4 mg 4 mg Oral Q8H PRN Vitor Joseph MD Or ondansetron (ZOFRAN) injection 4 mg 4 mg IntraVENous Q6H PRN Vitor Joseph MD polyethylene glycol (GLYCOLAX) packet 17 g 17 g Oral Daily PRN Vitor Joseph MD 17 g at 01/23/25 0842 acetaminophen (TYLENOL) tablet 650 mg 650 mg Oral Q6H PRN Vitor Joseph MD Or acetaminophen (TYLENOL) suppository 650 mg 650 mg Rectal Q6H PRN Vitor Joseph MD labetalol (NORMODYNE;TRANDATE) injection 10 mg 10 mg IntraVENous Q4H PRN Milind Corley MD albuterol (PROVENTIL) (2.5 MG/3ML) 0.083% nebulizer solution 2.5 mg 2.5 mg Nebulization Q4H PRN Uzair Wilson MD Allergies: Heparin Social History: reports that he has quit smoking. His smoking use included cigarettes. He started smoking about 34 years ago. He has a 17.1 pack-year smoking history. He has never used smokeless tobacco. He reports that he does not drink alcohol and does not use drugs. Family History: Hypertension REVIEW OF SYSTEMS: Constitutional: No fever or chills. No night sweats, no weight loss Eyes: No eye discharge, double vision, or eye pain HEENT: negative for sore mouth, sore throat, hoarseness and voice change Respiratory: negative for cough , sputum, dyspnea, wheezing, hemoptysis, chest pain Cardiovascular: negative for chest pain, dyspnea, palpitations, orthopnea, PND Gastrointestinal: negative for nausea, vomiting, diarrhea, constipation, abdominal pain, Dysphagia,hematemesis and hematochezia Genitourinary: negative for frequency, dysuria, nocturia, urinary incontinence, and hematuria Integument: negative for rash, skin lesions, bruises. Hematologic/Lymphatic: negative for easy bruising, bleeding, lymphadenopathy, or petechiae Endocrine: negative for heat or cold intolerance,weight changes, change in bowel habits and hair loss Musculoskeletal: negative for myalgias, arthralgias, pain, joint swelling,and bone pain Neurological: negative for headaches, dizziness, seizures, weakness, numbness PHYSICAL EXAM: BP 139/78 Pulse 78 Temp 97.7 ??F (36.5 ??C) (Oral) Resp 22 Ht 1.803 m (5' 11 ) Wt 73.5 kg(162 lb) SpO2 100% BMI 22.59 kg/m?? Temp (24hrs), Av.7 ??F (36.5 ??C), Min:97.3 ??F (36.3 ??C), Max:97.9 ??F (36.6 ??C) General appearance - well appearing, no in pain or distress Mental status - alert and cooperative Eyes - pupils equal and reactive, extraocular eye movements intact Mouth - mucous membranes moist, pharynx normal without lesions Neck - supple, no significant adenopathy Lymphatics - no palpable lymphadenopathy, no hepatosplenomegaly Chest - clear to auscultation, no wheezes, rales or rhonchi, symmetric air entry Heart - normal rate, regular rhythm, normal S1, S2, no murmurs Abdomen - soft, nontender, nondistended, no masses or organomegaly Neurological - alert, oriented, normal speech, no focal findings or movement disorder noted Musculoskeletal - no joint tenderness, deformity or swelling Extremities - peripheral pulses normal, no pedal edema, no clubbing or cyanosis Skin - normal coloration and turgor, ++ generalized petechiae and bruising DATA: Labs: Results for orders placed or performed during the hospital encounter of 01/22/25 MRSA DNA Probe, Nasal Specimen: Nasal Result Value Ref Range Specimen Description .NASAL SWAB MRSA, DNA, Nasal NEGATIVE NEGATIVE Culture, Blood 1 Specimen: Blood Result Value Ref Range Specimen Description .BLOOD Special Requests LH 10ML Culture NO GROWTH 4 DAYS Culture, Blood 1 Specimen: Blood Result Value Ref Range Specimen Description .BLOOD Special Requests RH 9ML Culture NO GROWTH 4 DAYS Urinalysis with Reflex to Culture Specimen: Urine, clean catch Result Value Ref Range Color, UA Yellow Yellow Turbidity UA Clear Clear Glucose, Ur NEGATIVE NEGATIVE mg/dL Bilirubin, Urine NEGATIVE NEGATIVE Ketones, Urine NEGATIVE NEGATIVE mg/dL Specific Lena, UA 1.052 (H) 1.005 - 1.030 Urine Hgb MODERATE (A) NEGATIVE pH, Urine 5.5 5.0 - 8.0 Protein, UA NEGATIVE NEGATIVE mg/dL Urobilinogen, Urine Normal 0.0 - 1.0 EU/dL Nitrite, Urine NEGATIVE NEGATIVE Leukocyte Esterase, Urine NEGATIVE NEGATIVE APTT Result Value Ref Range APTT 66.5 (H) 23.0 - 36.5 sec Protime-INR Result Value Ref Range Protime 14.2 11.7 - 14.9 sec INR 1.1 Basic Metabolic Panel w/ Reflex to MG Result Value Ref Range Sodium 136 136 - 145 mmol/L Potassium 3.9 3.7 - 5.3 mmol/L Chloride 101 98 - 107 mmol/L CO2 20 20 - 31 mmol/L Anion Gap 15 9 - 16 mmol/L Glucose 112 (H) 74 - 99 mg/dL BUN 13 8 - 23 mg/dL Creatinine 0.6 (L) 0.7 - 1.2 mg/dL Est, Glom Filt Rate >90 >60 mL/min/1.73m2 Calcium 9.2 8.6 - 10.4 mg/dL CBC with Auto Differential Result Value Ref Range WBC 8.3 3.5 - 11.3 k/uL RBC 4.70 4.21 - 5.77 m/uL Hemoglobin 13.6 13.0 - 17.0 g/dL Hematocrit 40.6 (L) 40.7 - 50.3 % MCV 86.4 82.6 - 102.9 fL MCH 28.9 25.2 - 33.5 pg MCHC 33.5 28.4 - 34.8 g/dL RDW 12.8 11.8 - 14.4 % Platelets See Reflexed IPF Result 138 - 453 k/uL Platelet, Fluorescence <2 (LL) 138 - 453 k/uL Platelet, Immature Fraction 0.0 (L) 1.1 - 10.3 % NRBC Automated 0.0 0.0 per 100 WBC Neutrophils % 68 (H) 36 - 65 % Lymphocytes % 19 (L) 24 - 43 % Monocytes % 11 3 - 12 % Eosinophils % 0 (L) 1 - 4 % Basophils % 0 0 - 2 % Immature Granulocytes % 1 (H) 0 % Neutrophils Absolute 5.63 1.50 - 8.10 k/uL Lymphocytes Absolute 1.60 1.10 - 3.70 k/uL Monocytes Absolute 0.94 0.10 - 1.20 k/uL Eosinophils Absolute <0.03 0.00 - 0.44 k/uL Basophils Absolute 0.03 0.00 - 0.20 k/uL Immature Granulocytes Absolute 0.05 0.00 - 0.30 k/uL Haptoglobin Result Value Ref Range Haptoglobin 381 (H) 30 - 200 mg/dL Lactic Acid Result Value Ref Range Lactic Acid, Whole Blood 1.3 0.7 - 2.1 mmol/L Lactate Dehydrogenase Result Value Ref Range LD 193 135 - 225 U/L Path Review, Smear Result Value Ref Range Pathologist Review ELECTRONICALLY SIGNED. TAMANNA GONZALES M.D. Reticulocytes Result Value Ref Range Retic Ct Pct 0.8 0.5 - 1.9 % Absolute Retic # 0.039 0.030 - 0.080 M/uL Immature Retic Fract 17.0 2.7 - 18.3 % Retic Hemoglobin 29.9 28.2 - 35.7 pg Sedimentation Rate Result Value Ref Range Sed Rate, Automated 119 (H) 0 - 20 mm/Hr TSH reflex to FT4 Result Value Ref Range TSH 1.24 0.27 - 4.20 uIU/mL Microscopic Urinalysis Result Value Ref Range WBC, UA None 0 - 5 /HPF RBC, UA 10 TO 20 0 - 4 /HPF Casts UA 0 - 8 /LPF None Reference range defined for non-centrifuged specimen. Epithelial Cells, UA None 0 - 5 /HPF Bacteria, UA None None HIV Screen Result Value Ref Range HIV Ag/Ab NONREACTIVE NONREACTIVE Procalcitonin Result Value Ref Range Procalcitonin 0.06 0.00 - 0.09 ng/mL Fibrinogen Result Value Ref Range Fibrinogen 681 (H) 203 - 521 mg/dL Fibrin Split Products Result Value Ref Range FDP >5 (H) <5 ug/mL ONOFRE SCREEN WITH REFLEX Result Value Ref Range ONOFRE POSITIVE (A) NEGATIVE DAVID Antibodies Screen 0.5 <0.7 U/mL Anti ds DNA 35.0 (H) <10.0 IU/mL CK Result Value Ref Range Total CK 62 39 - 308 U/L C-Reactive Protein Result Value Ref Range CRP 38.0 (H) 0.0 - 5.0 mg/L Hepatic Function Panel Result Value Ref Range Albumin 3.8 3.5 - 5.2 g/dL Alkaline Phosphatase 84 40 - 129 U/L ALT 36 10 - 50 U/L AST 28 10 - 50 U/L Total Bilirubin 0.5 0.0 - 1.2 mg/dL Bilirubin, Direct 0.3 (H) 0.0 - 0.2 mg/dL Bilirubin, Indirect 0.2 0.0 - 1.0 mg/dL Total Protein 8.0 6.6 - 8.7 g/dL Globulin 4.2 g/dL Albumin/Globulin Ratio 0.9 (L) 1.0 - 2.5 Myoglobin, Blood Result Value Ref Range Myoglobin 27 (L) 28 - 72 ng/mL TEG Global Hemostasis with Lysis Result Value Ref Range Reaction Time TEG 14.7 (H) 4.6 - 9.1 min LY30(Lysis) TEG 0.0 0.0 - 2.6 % MA(Max Clot) Rapid TEG <40.0 (L) 52.0 - 70 mm Fibrinogen, Functional TEG 39.8 (H) 15.0 - 32.0 mm Hepatitis Panel, Acute Result Value Ref Range Hepatitis B Surface Ag NONREACTIVE NONREACTIVE Hepatitis C Ab NONREACTIVE NONREACTIVE Hep B Core Ab, IgM NONREACTIVE NONREACTIVE Hep A IgM NONREACTIVE NONREACTIVE Basic Metabolic Panel w/ Reflex to MG Result Value Ref Range Sodium 135 (L) 136 - 145 mmol/L Potassium 3.9 3.7 - 5.3 mmol/L Chloride 101 98 - 107 mmol/L CO2 19 (L) 20 - 31 mmol/L Anion Gap 15 9 - 16 mmol/L Glucose 111 (H) 74 - 99 mg/dL BUN 13 8 - 23 mg/dL Creatinine 0.6 (L) 0.7 - 1.2 mg/dL Est, Glom Filt Rate >90 >60 mL/min/1.73m2 Calcium 9.3 8.6 - 10.4 mg/dL CBC with Auto Differential Result Value Ref Range WBC 7.2 3.5 - 11.3 k/uL RBC 4.67 4.21 - 5.77 m/uL Hemoglobin 13.4 13.0 - 17.0 g/dL Hematocrit 40.9 40.7 - 50.3 % MCV 87.6 82.6 - 102.9 fL MCH 28.7 25.2 - 33.5 pg MCHC 32.8 28.4 - 34.8 g/dL RDW 12.9 11.8 - 14.4 % Platelets See Reflexed IPF Result 138 - 453 k/uL Platelet, Fluorescence 2 (LL) 138 - 453 k/uL Platelet, Immature Fraction 4.8 1.1 - 10.3 % NRBC Automated 0.0 0.0 per 100 WBC Neutrophils % 66 (H) 36 - 65 % Lymphocytes % 22 (L) 24 - 43 % Monocytes % 11 3 - 12 % Eosinophils % 1 1 - 4 % Basophils % 0 0 - 2 % Immature Granulocytes % 0 0 % Neutrophils Absolute 4.73 1.50 - 8.10 k/uL Lymphocytes Absolute 1.57 1.10 - 3.70 k/uL Monocytes Absolute 0.79 0.10 - 1.20 k/uL Eosinophils Absolute 0.04 0.00 - 0.44 k/uL Basophils Absolute 0.03 0.00 - 0.20 k/uL Immature Granulocytes Absolute 0.03 0.00 - 0.30 k/uL Heparin-Induced Platelet Antibody Result Value Ref Range Heparin Induced Plt Ab 1.247 (H) 0.000 - 0.400 O.D. D-Dimer, Quantitative Result Value Ref Range D-Dimer, Quant 2.86 (H) 0.00 - 0.57 ug/mL FEU CBC with Auto Differential Result Value Ref Range WBC 5.1 3.5 - 11.3 k/uL RBC 4.87 4.21 - 5.77 m/uL Hemoglobin 13.9 13.0 - 17.0 g/dL Hematocrit 42.8 40.7 - 50.3 % MCV 87.9 82.6 - 102.9 fL MCH 28.5 25.2 - 33.5 pg MCHC 32.5 28.4 - 34.8 g/dL RDW 13.0 11.8 - 14.4 % Platelets See Reflexed IPF Result 138 - 453 k/uL Platelet, Fluorescence <2 (LL) 138 - 453 k/uL Platelet, Immature Fraction 0.0 (L) 1.1 - 10.3 % NRBC Automated 0.0 0.0 per 100 WBC Neutrophils % 78 (H) 36 - 65 % Lymphocytes % 15 (L) 24 - 43 % Monocytes % 6 3 - 12 % Eosinophils % 0 (L) 1 - 4 % Basophils % 0 0 - 2 % Immature Granulocytes % 1 (H) 0 % Neutrophils Absolute 4.02 1.50 - 8.10 k/uL Lymphocytes Absolute 0.75 (L) 1.10 - 3.70 k/uL Monocytes Absolute 0.33 0.10 - 1.20 k/uL Eosinophils Absolute <0.03 0.00 - 0.44 k/uL Basophils Absolute <0.03 0.00 - 0.20 k/uL Immature Granulocytes Absolute 0.03 0.00 - 0.30 k/uL Basic Metabolic Panel w/ Reflex to MG Result Value Ref Range Sodium 133 (L) 136 - 145 mmol/L Potassium 3.7 3.7 - 5.3 mmol/L Chloride 102 98 - 107 mmol/L CO2 19 (L) 20 - 31 mmol/L Anion Gap 12 9 - 16 mmol/L Glucose 88 74 - 99 mg/dL BUN 20 8 - 23 mg/dL Creatinine 0.6 (L) 0.7 - 1.2 mg/dL Est, Glom Filt Rate >90 >60 mL/min/1.73m2 Calcium 8.7 8.6 - 10.4 mg/dL CBC with Auto Differential Result Value Ref Range WBC 7.5 3.5 - 11.3 k/uL RBC 4.12 (L) 4.21 - 5.77 m/uL Hemoglobin 11.8 (L) 13.0 - 17.0 g/dL Hematocrit 36.1 (L) 40.7 - 50.3 % MCV 87.6 82.6 - 102.9 fL MCH 28.6 25.2 - 33.5 pg MCHC 32.7 28.4 - 34.8 g/dL RDW 12.8 11.8 - 14.4 % Platelets See Reflexed IPF Result 138 - 453 k/uL Platelet, Fluorescence <2 (LL) 138 - 453 k/uL Platelet, Immature Fraction 28.7 (H) 1.1 - 10.3 % NRBC Automated 0.0 0.0 per 100 WBC Neutrophils % 63 36 - 65 % Lymphocytes % 19 (L) 24 - 43 % Monocytes % 17 (H) 3 - 12 % Eosinophils % 0 (L) 1 - 4 % Basophils % 0 0 - 2 % Immature Granulocytes % 1 (H) 0 % Neutrophils Absolute 4.73 1.50 - 8.10 k/uL Lymphocytes Absolute 1.45 1.10 - 3.70 k/uL Monocytes Absolute 1.24 (H) 0.10 - 1.20 k/uL Eosinophils Absolute <0.03 0.00 - 0.44 k/uL Basophils Absolute <0.03 0.00 - 0.20 k/uL Immature Granulocytes Absolute 0.06 0.00 - 0.30 k/uL [id number] ACTIVITY Result Value Ref Range [id number] Activity >100 >=61 % Vitamin B12 & Folate Result Value Ref Range Vitamin B-12 624 232 - 1245 pg/mL Folate 11.7 4.8 - 24.2 ng/mL Electrophoresis Protein, Serum Result Value Ref Range Total Protein 8.3 6.6 - 8.7 g/dL Albumin (calculated) 3.1 (L) 3.2 - 5.2 g/dL Albumin % 37 (L) 56 - 66 % [id number]-[id number] 0.4 0.1 - 0.4 g/dL Alpha 1 % 5 3 - 5 % Nggrh-2-Joxkiuif 1.0 (H) 0.5 - 0.9 g/dL Alpha 2 % 11 7 - 12 % Beta Globulin 0.8 0.7 - 1.4 g/dL Beta Percent 10 8 - 13 % Gamma Globulin 3.1 (H) 0.5 - 1.5 g/dL Gamma Globulin % 37 (H) 11 - 19 % Total Prot. Sum 8.4 (H) 6.3 - 8.2 g/dL Total Prot. Sum,% 100 98 - 102 % Protein Electrophoresis, Serum Albumin is decreased. May be observed with hepatic diseases, Pathologist ELECTRONICALLY SIGNED. PILLO ELY M.D. Cytomegalovirus Ab,IGG,IGM Result Value Ref Range CMV IgG 744.0 (H) <0.5 CMV IgM 0.2 <0.7 Serotonin Rel Assay Result Value Ref Range Heparin Type Porcine Heparin KIM Heparin Platelet Antibody Negative Negative KIM Porc Low Dose 3 % KIM Porc High Dose 0 % SEROTONIN RELEASING ASSAY See Note SURGICAL PATHOLOGY REPORT Result Value Ref Range Surgical Pathology Report [id number] [facility] CONSULTING PATHOLOGISTS [facility] ANATOMIC PATHOLOGY [address] [place] [address]. [place], [place] [address] SURGICAL PATHOLOGY CONSULTATION Patient Name: AMBROSIO RAMÍREZ V. MR#: [id number] Specimen #[id number] Procedures/Addenda PERIPHERAL BLOOD REPORT Date Ordered: 01/23/2025 Status: Signed Out Date Complete: 01/25/2025 By: Tamanna Gonzales M.D. Date Reported: 01/25/2025 INTERPRETATION Peripheral blood: - Normocytic red blood cells with unremarkable morphology. - White blood cells with normal morphology. No blasts. - Marked thrombocytopenia. RESULTS-COMMENTS PERIPHERAL BLOOD STUDY CBC: Please see the electronic health record for CBC parameters ([id number], 01/22/2025, 04:18). PLATELETS: Marked thrombocytopenia. LEUKOCYTES: White blood cells show normal morphology. No atypical lymphocytes. No dysplasia. There are no blasts. ERYTHROCYTES: Red blood cells show normal morphology. No schistocytes. Note: The electronic health record is reviewed. Tamanna Gonzales M.D. Source: A: Peripheral Blood CBC with Auto Differential Result Value Ref Range WBC 6.2 3.5 - 11.3 k/uL RBC 3.78 (L) 4.21 - 5.77 m/uL Hemoglobin 10.9 (L) 13.0 - 17.0 g/dL Hematocrit 33.6 (L) 40.7 - 50.3 % MCV 88.9 82.6 - 102.9 fL MCH 28.8 25.2 - 33.5 pg MCHC 32.4 28.4 - 34.8 g/dL RDW 13.1 11.8 - 14.4 % Platelets See Reflexed IPF Result 138 - 453 k/uL Platelet, Fluorescence 3 (LL) 138 - 453 k/uL Platelet, Immature Fraction 48.4 (H) 1.1 - 10.3 % NRBC Automated 0.0 0.0 per 100 WBC Neutrophils % 83 (H) 36 - 65 % Lymphocytes % 12 (L) 24 - 43 % Monocytes % 4 3 - 12 % Eosinophils % 0 (L) 1 - 4 % Basophils % 0 0 - 2 % Immature Granulocytes % 1 (H) 0 % Neutrophils Absolute 5.15 1.50 - 8.10 k/uL Lymphocytes Absolute 0.76 (L) 1.10 - 3.70 k/uL Monocytes Absolute 0.22 0.10 - 1.20 k/uL Eosinophils Absolute <0.03 0.00 - 0.44 k/uL Basophils Absolute <0.03 0.00 - 0.20 k/uL Immature Granulocytes Absolute 0.03 0.00 - 0.30 k/uL Basic Metabolic Panel w/ Reflex to MG Result Value Ref Range Sodium 133 (L) 136 - 145 mmol/L Potassium 4.2 3.7 - 5.3 mmol/L Chloride 104 98 - 107 mmol/L CO2 20 20 - 31 mmol/L Anion Gap 9 9 - 16 mmol/L Glucose 97 74 - 99 mg/dL BUN 21 8 - 23 mg/dL Creatinine 0.5 (L) 0.7 - 1.2 mg/dL Est, Glom Filt Rate >90 >60 mL/min/1.73m2 Calcium 8.6 8.6 - 10.4 mg/dL CBC with Auto Differential Result Value Ref Range WBC 8.6 3.5 - 11.3 k/uL RBC 3.83 (L) 4.21 - 5.77 m/uL Hemoglobin 10.8 (L) 13.0 - 17.0 g/dL Hematocrit 34.8 (L) 40.7 - 50.3 % MCV 90.9 82.6 - 102.9 fL MCH 28.2 25.2 - 33.5 pg MCHC 31.0 28.4 - 34.8 g/dL RDW 13.0 11.8 - 14.4 % Platelets See Reflexed IPF Result 138 - 453 k/uL Platelet, Fluorescence 6 (LL) 138 - 453 k/uL Platelet, Immature Fraction 25.9 (H) 1.1 - 10.3 % NRBC Automated 0.0 0.0 per 100 WBC Neutrophils % 70 (H) 36 - 65 % Lymphocytes % 21 (L) 24 - 43 % Monocytes % 8 3 - 12 % Eosinophils % 0 (L) 1 - 4 % Basophils % 0 0 - 2 % Immature Granulocytes % 1 (H) 0 % Neutrophils Absolute 6.03 1.50 - 8.10 k/uL Lymphocytes Absolute 1.79 1.10 - 3.70 k/uL Monocytes Absolute 0.72 0.10 - 1.20 k/uL Eosinophils Absolute <0.03 0.00 - 0.44 k/uL Basophils Absolute 0.03 0.00 - 0.20 k/uL Immature Granulocytes Absolute 0.05 0.00 - 0.30 k/uL Hepatic Function Panel Result Value Ref Range Albumin 3.1 (L) 3.5 - 5.2 g/dL Alkaline Phosphatase 61 40 - 129 U/L ALT 28 10 - 50 U/L AST 24 10 - 50 U/L Total Bilirubin 0.6 0.0 - 1.2 mg/dL Bilirubin, Direct 0.1 0.0 - 0.2 mg/dL Bilirubin, Indirect 0.5 0.0 - 1.0 mg/dL Total Protein 9.5 (H) 6.6 - 8.7 g/dL Globulin 6.4 g/dL Albumin/Globulin Ratio 0.5 (L) 1.0 - 2.5 CBC with Auto Differential Result Value Ref Range WBC 6.3 3.5 - 11.3 k/uL RBC 3.72 (L) 4.21 - 5.77 m/uL Hemoglobin 10.7 (L) 13.0 - 17.0 g/dL Hematocrit 33.1 (L) 40.7 - 50.3 % MCV 89.0 82.6 - 102.9 fL MCH 28.8 25.2 - 33.5 pg MCHC 32.3 28.4 - 34.8 g/dL RDW 12.9 11.8 - 14.4 % Platelets See Reflexed IPF Result 138 - 453 k/uL Platelet, Fluorescence 8 (LL) 138 - 453 k/uL Platelet, Immature Fraction 30.2 (H) 1.1 - 10.3 % NRBC Automated 0.0 0.0 per 100 WBC Neutrophils % 85 (H) 36 - 65 % Lymphocytes % 12 (L) 24 - 43 % Monocytes % 2 (L) 3 - 12 % Eosinophils % 0 (L) 1 - 4 % Basophils % 0 0 - 2 % Immature Granulocytes % 1 (H) 0 % Neutrophils Absolute 5.39 1.50 - 8.10 k/uL Lymphocytes Absolute 0.78 (L) 1.10 - 3.70 k/uL Monocytes Absolute 0.11 0.10 - 1.20 k/uL Eosinophils Absolute <0.03 0.00 - 0.44 k/uL Basophils Absolute <0.03 0.00 - 0.20 k/uL Immature Granulocytes Absolute 0.03 0.00 - 0.30 k/uL Basic Metabolic Panel w/ Reflex to MG Result Value Ref Range Sodium 134 (L) 136 - 145 mmol/L Potassium 4.0 3.7 - 5.3 mmol/L Chloride 101 98 - 107 mmol/L CO2 22 20 - 31 mmol/L Anion Gap 11 9 - 16 mmol/L Glucose 87 74 - 99 mg/dL BUN 16 8 - 23 mg/dL Creatinine 0.7 0.7 - 1.2 mg/dL Est, Glom Filt Rate >90 >60 mL/min/1.73m2 Calcium 8.7 8.6 - 10.4 mg/dL CBC with Auto Differential Result Value Ref Range WBC 9.5 3.5 - 11.3 k/uL RBC 3.63 (L) 4.21 - 5.77 m/uL Hemoglobin 10.4 (L) 13.0 - 17.0 g/dL Hematocrit 32.2 (L) 40.7 - 50.3 % MCV 88.7 82.6 - 102.9 fL MCH 28.7 25.2 - 33.5 pg MCHC 32.3 28.4 - 34.8 g/dL RDW 13.1 11.8 - 14.4 % Platelets See Reflexed IPF Result 138 - 453 k/uL Platelet, Fluorescence 6 (LL) 138 - 453 k/uL Platelet, Immature Fraction 22.8 (H) 1.1 - 10.3 % NRBC Automated 0.0 0.0 per 100 WBC Neutrophils % 62 36 - 65 % Lymphocytes % 28 24 - 43 % Monocytes % 10 3 - 12 % Eosinophils % 0 (L) 1 - 4 % Basophils % 0 0 - 2 % Immature Granulocytes % 1 (H) 0 % Neutrophils Absolute 5.85 1.50 - 8.10 k/uL Lymphocytes Absolute 2.62 1.10 - 3.70 k/uL Monocytes Absolute 0.91 0.10 - 1.20 k/uL Eosinophils Absolute <0.03 0.00 - 0.44 k/uL Basophils Absolute 0.03 0.00 - 0.20 k/uL Immature Granulocytes Absolute 0.05 0.00 - 0.30 k/uL Immunotyping, Serum Result Value Ref Range ITYP Interpretation Immunotyping is negative for monoclonal immunoglobulin. Pathologist Review ELECTRONICALLY SIGNED. PILLO ELY M.D. Basic Metabolic Panel w/ Reflex to MG Result Value Ref Range Sodium 132 (L) 136 - 145 mmol/L Potassium 4.0 3.7 - 5.3 mmol/L Chloride 103 98 - 107 mmol/L CO2 21 20 - 31 mmol/L Anion Gap 8 (L) 9 - 16 mmol/L Glucose 95 74 - 99 mg/dL BUN 17 8 - 23 mg/dL Creatinine 0.6 (L) 0.7 - 1.2 mg/dL Est, Glom Filt Rate >90 >60 mL/min/1.73m2 Calcium 8.3 (L) 8.6 - 10.4 mg/dL CBC with Auto Differential Result Value Ref Range WBC 9.9 3.5 - 11.3 k/uL RBC 3.42 (L) 4.21 - 5.77 m/uL Hemoglobin 9.8 (L) 13.0 - 17.0 g/dL Hematocrit 30.3 (L) 40.7 - 50.3 % MCV 88.6 82.6 - 102.9 fL MCH 28.7 25.2 - 33.5 pg MCHC 32.3 28.4 - 34.8 g/dL RDW 13.0 11.8 - 14.4 % Platelets See Reflexed IPF Result 138 - 453 k/uL Platelet, Fluorescence 17 (LL) 138 - 453 k/uL Platelet, Immature Fraction 26.4 (H) 1.1 - 10.3 % NRBC Automated 0.3 (H) 0.0 per 100 WBC Neutrophils % 70 (H) 36 - 65 % Lymphocytes % 20 (L) 24 - 43 % Monocytes % 9 3 - 12 % Eosinophils % 0 (L) 1 - 4 % Basophils % 0 0 - 2 % Immature Granulocytes % 1 (H) 0 % Neutrophils Absolute 6.92 1.50 - 8.10 k/uL Lymphocytes Absolute 1.98 1.10 - 3.70 k/uL Monocytes Absolute 0.84 0.10 - 1.20 k/uL Eosinophils Absolute <0.03 0.00 - 0.44 k/uL Basophils Absolute <0.03 0.00 - 0.20 k/uL Immature Granulocytes Absolute 0.09 0.00 - 0.30 k/uL H. pylori antigen Result Value Ref Range Specimen Description .FECES Direct Exam POSITIVE (A) Basic Metabolic Panel w/ Reflex to MG Result Value Ref Range Sodium 131 (L) 136 - 145 mmol/L Potassium 4.3 3.7 - 5.3 mmol/L Chloride 102 98 - 107 mmol/L CO2 21 20 - 31 mmol/L Anion Gap 8 (L) 9 - 16 mmol/L Glucose 81 74 - 99 mg/dL BUN 15 8 - 23 mg/dL Creatinine 0.7 0.7 - 1.2 mg/dL Est, Glom Filt Rate >90 >60 mL/min/1.73m2 Calcium 8.2 (L) 8.6 - 10.4 mg/dL CBC with Auto Differential Result Value Ref Range WBC 7.5 3.5 - 11.3 k/uL RBC 3.77 (L) 4.21 - 5.77 m/uL Hemoglobin 10.9 (L) 13.0 - 17.0 g/dL Hematocrit 33.2 (L) 40.7 - 50.3 % MCV 88.1 82.6 - 102.9 fL MCH 28.9 25.2 - 33.5 pg MCHC 32.8 28.4 - 34.8 g/dL RDW 13.3 11.8 - 14.4 % Platelets See Reflexed IPF Result 138 - 453 k/uL Platelet, Fluorescence 29 (L) 138 - 453 k/uL Platelet, Immature Fraction 14.5 (H) 1.1 - 10.3 % NRBC Automated 0.0 0.0 per 100 WBC Neutrophils % 61 36 - 65 % Lymphocytes % 25 24 - 43 % Monocytes % 11 3 - 12 % Eosinophils % 1 1 - 4 % Basophils % 0 0 - 2 % Immature Granulocytes % 1 (H) 0 % Neutrophils Absolute 4.59 1.50 - 8.10 k/uL Lymphocytes Absolute 1.83 1.10 - 3.70 k/uL Monocytes Absolute 0.85 0.10 - 1.20 k/uL Eosinophils Absolute 0.08 0.00 - 0.44 k/uL Basophils Absolute <0.03 0.00 - 0.20 k/uL Immature Granulocytes Absolute 0.10 0.00 - 0.30 k/uL Arterial Blood Gas, POC Result Value Ref Range POC pH 7.511 (H) 7.350 - 7.450 POC pCO2 27.3 (L) 35.0 - 48.0 mm Hg POC PO2 87.1 83.0 - 108.0 mm Hg POC HCO3 21.9 21.0 - 28.0 mmol/L Positive Base Excess, Art 0.2 0.0 - 3.0 mmol/L POC O2 SAT 97.7 94.0 - 98.0 % O2 Delivery Device Room Air Jone Test POSITIVE Sample Site Right Radial Artery POCT Glucose Result Value Ref Range POC Glucose 126 (H) 74 - 100 mg/dL DIRECT ANTIGLOBULIN TEST Result Value Ref Range FELIPE, Polyspecific NEGATIVE IMAGING DATA: CT CHEST W CONTRAST Result Date: 01/23/2025 EXAMINATION: CT OF THE CHEST WITH CONTRAST 01/22/2025 7:55 pm TECHNIQUE: CT of the chest was performed with the administration of intravenous contrast. Multiplanar reformatted images are provided for review. Automated exposure control, iterative reconstruction, and/or weight based adjustment of the mA/kV was utilized to reduce the radiation dose to as low as reasonably achievable. COMPARISON: Correlation is made to chest radiograph dated January 22, 2025. No similar exam for comparison. HISTORY: ORDERING SYSTEM PROVIDED HISTORY: [facility] TECHNOLOGIST PROVIDED HISTORY: [facility] FINDINGS: Mediastinum: Thoracic aorta is atherosclerotic. Coronary artery atherosclerosis. Thoracic aorta and central portion of the pulmonary artery opacify normally. The ascending thoracic aorta is of normal caliber. Heart size is normal. There is no pericardial effusion. No evidence of hilar adenopathy. Enlarged subcarinal node measures 1.4 cm in the short axis dimension. There are coarsely calcified subcarinal and right hilar nodes. Lungs/pleura: Mild centrilobular emphysema. There are calcified granulomas in the right lung. Bandlike opacity in the left lower lobe is probably scarring or atelectasis. Central tracheobronchial airways are unremarkable. No bronchiectasis or bronchial wall thickening. No focal consolidation, pleural effusion, or pneumothorax. Symmetric bilateral apical scarring. Upper Abdomen: Hyperdense material layers in the dependent portion of the gallbladder lumen. Differential includes excreted contrast from prior CT of the abdomen and pelvis dated January 21, 2025, small stones, and sludge. Multiple hypodensities in the liver are probably cysts. Hepatic steatosis. No acute abnormality in the upper abdomen. Soft Tissues/Bones: No aggressive lytic or blastic bony lesion. 1. No evidence of malignancy in the chest. 2. Mild centrilobular emphysema. 3. Coronary artery atherosclerosis. 4. Hepatic steatosis. US LIVER SPLEEN Result Date: 01/22/2025 EXAMINATION: RIGHT UPPER QUADRANT ULTRASOUND 01/22/2025 8:30 pm COMPARISON: January 21, 2025 HISTORY: ORDERING SYSTEM PROVIDED HISTORY: Acute onset thrombocytopenia. Rule out hepatosplenomegaly TECHNOLOGIST PROVIDED HISTORY: Acute onset thrombocytopenia. Rule out hepatosplenomegaly FINDINGS: LIVER: The l iver demonstrates normal echogenicity without evidence of intrahepatic biliary ductal dilatation. Benign cysts measure up to 12 mm. BILIARY SYSTEM: Gallbladder is unremarkable without evidence of pericholecystic fluid, wall thickening or stones. Negative sonographic Tate's sign. Common bile duct is within normal limits measuring 4 mm. RIGHT KIDNEY: The right kidney is grossly unremarkable without evidence of hydronephrosis. The right kidney measures 11.1 cm in length. PANCREAS: Visualized portions of the pancreas are unremarkable. OTHER: No evidence of right upper quadrant ascites. The spleen is normal in size, measuring 9.2 cm. 1. Unremarkable right upper quadrant ultrasound. 2. Normal spleen. XR CHEST PORTABLE Result Date: 01/22/2025 EXAMINATION: ONE XRAY VIEW OF THE CHEST 01/22/2025 10:57 am COMPARISON: None. HISTORY: ORDERING SYSTEM PROVIDED HISTORY: To look for pnemonia TECHNOLOGIST PROVIDED HISTORY: To look for pnemonia FINDINGS: Lungs: Clear. Pleura: No effusion or pneumothorax. Cardiomediastinal silhouette: Normal contours. Bones: No acute bony findings. Soft tissues: Normal. No acute pulmonary findings. IMPRESSION: Primary Problem Acute idiopathic thrombocytopenic purpura (HCC) Active Hospital Problems Diagnosis Date Noted H. pylori infection [A04.8] 01/26/2025 S/P AAA repair [Z98.890, Z86.79] 01/23/2025 Acute idiopathic thrombocytopenic purpura (HCC) [D69.3] 01/22/2025 Rash [R21] 01/22/2025 Acute severe thrombocytopenia, likely H. pylori associated ITP H. pylori stool antigen positive Recent AAA repair Petechial rash Blisters RECOMMENDATIONS: I reviewed the labs/imaging available to me,outside records and discussed with the patient.I explained to the patient the nature of this problem. I explained the significance of these abnormalities and possible etiology and management optionsFollow-up on peripheral smear however given isolated thrombocytopenia ITP is high in the differential. Peripheral blood smear showing marked thrombocytopenia. No blasts and no schistocytes HIT panel came back positive, KIM negative Status post Decadron 40 mg daily x 4 doses and IVIG 1 g/kg x 3 H. pylori testing positive. Right to be likely secondary to H. pylori. Complete treatment of H. Pylori Platelet count adequate for patient to be discharged however I am concerned about drop in immature platelet fraction. Will start patient on low-dose prednisone. Patient will need outpatient CBC done twice. Patient can follow-up at our office in [facility] Robel Mccormack M.D. This note is created with the assistance of a speech recognition program. While intending to generate a document that actually reflects the content of the visit, the document can still have some errors including those of syntax and sound a like substitutions which may escape proof reading. It such instances, actual meaning can be extrapolated by contextual diversion. * Melisa Mejia MD - 01/27/2025 9:16 AM EDT Images from the original note were not included. [facility] Office: [phone] Harman Canada DO, Jose Alfredo Spear DO, Jose Yanes DO, Errol Mullins DO, Bridget Galarza MD, Zoë Ulrich MD, Mani Lopez MD, Cristela Raphael MD, Agustín Solorio MD, Preet Callahan MD, Melisa Mejia MD, Rolando Batista DO, Peri Strong MD, John Calix MD, Anish Canada DO, Felicia Capps MD, Tiburcio Duran DO, Naty Blankenship MD, Maryjo Murrell MD, Gopal Isabel MD, MD Dontae, Carroll Duque MD, Kirit Bowles MD, Agustin Obrien MD, Tyree Cuevas MD, Victor Manuel Carcamo MD, Mark Carrillo DO, Vanessa Cook MD, Alfa Cardozo DO, Tab Luis MD, Rolando Mercado MD, Jenna Mercado MD, Nguyen Estrada MD, Samantha Betts, SPECIAL TECHNICAL OPERATIONS OFFICER, Gertrude Currie, SPECIAL TECHNICAL OPERATIONS OFFICER, Mark Mata, SPECIAL TECHNICAL OPERATIONS OFFICER, Daphne Piña, FABIANA, Nicole Olivas, SPECIAL TECHNICAL OPERATIONS OFFICER, Alesha Hutchison, SPECIAL TECHNICAL OPERATIONS OFFICER, Mary Sands, SPECIAL TECHNICAL OPERATIONS OFFICER, Chanel Price, SPECIAL TECHNICAL OPERATIONS OFFICER, Lisbeth Desai, LIZETTC, Danelle Rosas, SPECIAL TECHNICAL OPERATIONS OFFICER, Velma De La Cruz, SPECIAL TECHNICAL OPERATIONS OFFICER, Kathya Kim, SPECIAL TECHNICAL OPERATIONS OFFICER, Corina Hayward, SPECIAL TECHNICAL OPERATIONS OFFICER, LIZETT CansecoC, Linda Chino, SPECIAL TECHNICAL OPERATIONS OFFICER, Alicia Blackman, [facility], Mendy Fajardo, MOOSE, Nedra Isbell, MOOSE, Itzel Luna, SPECIAL TECHNICAL OPERATIONS OFFICER [facility] IN-PATIENT SERVICE [facility] Progress Note 01/27/2025 9:16 AM Name: Ambrosio Ramírez Acct: [id number] Room: [address] [place] [address] Day: 5 Admit Date: 01/22/2025 3:32 AM PCP: Davion Stephenson DO Code Status: Full Code Subjective: C/C: No chief complaint on file. Interval History Status: improved. Patient seen examined sitting in chair. Feeling well. No complaints. Brief History: 64-year-old male past medical history of hypertriglyceridemia, AAA repair, presents with bleeding from femoral site, had some blisters in his mouth and was found to have acute thrombocytopenia. Patient was evaluated by hematology oncology. He received IVIG as well as Decadron for 4 days. Patient found to be positive for H. pylori and started on quadruple therapy. Review of Systems: Constitutional: negative for chills, fevers, sweats Respiratory: negative for cough, dyspnea on exertion, shortness of breath, wheezing Cardiovascular: negative for chest pain, chest pressure/discomfort, lower extremity edema, palpitations Gastrointestinal: negative for abdominal pain, constipation, diarrhea, nausea, vomiting Neurological: negative for dizziness, headache Medications: Allergies: Allergies Allergen Reactions Heparin HIT Current Meds: Scheduled Meds: bismuth subsalicylate 30 mL Oral 4x Daily pantoprazole 40 mg Oral BID AC tetracycline 500 mg Oral 4x Daily metroNIDAZOLE 500 mg Oral 4 times per day rosuvastatin 10 mg Oral Nightly sodium chloride flush 5-40 mL IntraVENous 2 times per day Continuous Infusions: sodium chloride Stopped (05/25/25 0854) PRN Meds: sodium chloride flush, sodium chloride, potassium chloride OR potassium chloride, magnesium sulfate, ondansetron OR ondansetron, polyethylene glycol, acetaminophen OR acetaminophen, labetalol, albuterol Data: Past Medical History: has no past medical history on file. Social History: reports that he has quit smoking. His smoking use included cigarettes. He started smoking about 34 years ago. He has a 17.1 pack-year smoking history. He has never used smokeless tobacco. He reports that he does not drink alcohol and does not use drugs. Family History: No family history on file. Vitals: BP 139/78 Pulse 78 Temp 97.7 ??F (36.5 ??C) (Oral) Resp 22 Ht 1.803 m (5' 11 ) Wt 73.5 kg(162 lb) SpO2 100% BMI 22.59 kg/m?? Temp (24hrs), Av.7 ??F (36.5 ??C), Min:97.3 ??F (36.3 ??C), Max:97.9 ??F (36.6 ??C) No results for input(s): POCGLU in the last 72 hours. I/O (24Hr): Intake/Output Summary (Last 24 hours) at 01/27/2025 0916 Last data filed at 01/27/2025 0613 Gross per 24 hour Intake -- Output 1150 ml Net -1150 ml Labs: Hematology: Recent Labs 01/25/25 0632 01/26/25 0307 01/27/25 0604 WBC 9.5 9.9 7.5 RBC 3.63* 3.42* 3.77* HGB 10.4* 9.8* 10.9* HCT 32.2* 30.3* 33.2* MCV 88.7 88.6 88.1 MCH 28.7 28.7 28.9 MCHC 32.3 32.3 32.8 RDW 13.1 13.0 13.3 PLT See Reflexed IPF Result See Reflexed IPF Result See Reflexed IPF Result Chemistry: Recent Labs 01/25/25 0632 01/26/25 0307 01/27/25 0604 NA 134* 132* 131* K 4.0 4.0 4.3 CL 101 103 102 CO2 22 21 21 GLUCOSE 87 95 81 BUN 16 17 15 CREATININE 0.7 0.6* 0.7 ANIONGAP 11 8* 8* LABGLOM >90 >90 >90 CALCIUM 8.7 8.3* 8.2* No results for input(s): LABALBU , LABA1C , Y0SQVVM , FT4 , TSH , AST , ALT , LDH , GGT , ALKPHOS , BILITOT , BILIDIR , AMMONIA , AMYLASE , LIPASE , LACTATE , CHOL , HDL , CHOLHDLRATIO , TRIG , VLDL , XIN68GZ , PHENYTOIN , PHENYF , URICACID , POCGLU in the last 72 hours. Invalid input(s): PROT , B2DXUYF , LABGGT , LDLCHOLESTEROL ABG: Lab Results Component Value Date/Time POCPH 7.511 01/22/2025 10:30 AM POCPCO2 27.3 01/22/2025 10:30 AM POCPO2 87.1 01/22/2025 10:30 AM POCHCO3 21.9 01/22/2025 10:30 AM PBEA 0.2 01/22/2025 10:30 AM [id number] 97.7 01/22/2025 10:30 AM Lab Results Component Value Date/Time SPECIAL RH 9ML 01/22/2025 12:13 PM Lab Results Component Value Date/Time CULTURE NO GROWTH 4 DAYS 01/22/2025 12:13 PM Radiology: CT CHEST W CONTRAST Result Date: 01/23/2025 1. No evidence of malignancy in the chest. 2. Mild centrilobular emphysema. 3. Coronary artery atherosclerosis. 4. Hepatic steatosis. US LIVER SPLEEN Result Date: 01/22/2025 1. Unremarkable right upper quadrant ultrasound. 2. Normal spleen. XR CHEST PORTABLE Result Date: 01/22/2025 No acute pulmonary findings. Physical Examination: General appearance: alert, cooperative and no distress Mental Status: oriented to person, place and time and normal affect Lungs: clear to auscultation bilaterally, normal effort Heart: regular rate and rhythm, no murmur Abdomen: soft, nontender, nondistended, normal bowel sounds, no masses, hepatomegaly, splenomegaly Extremities: no edema, redness, tenderness in the calves Skin: no gross lesions, rashes, induration Assessment: Hospital Problems Last Modified POA * (Principal) Acute idiopathic thrombocytopenic purpura (HCC) 01/26/2025 Yes Rash 01/22/2025 Yes S/P AAA repair 01/23/2025 Yes H. pylori infection 01/26/2025 Yes Plan: Started on quadruple therapy for H. pylori Status post Decadron, IVIG. Appreciate hematology oncology recommendations. Platelets are slowly improving Hyperlipidemia continue Crestor History of AAA repair. At this time continue to hold aspirin as patient is still high risk for rebleeding Discharge planning today. Repeat cbc as outpatient, if continued improvement can follow up with PCPabout restarting aspirin. Melisa Mejia MD 01/27/2025 9:16 AM * Melisa Mejia MD - 01/26/2025 10:25 AM EDT Images from the original note were not included. [facility] Office: [phone] Harman Canada DO, Jose Alfredo Spear DO, Jose Yanes DO, Errol Mullins DO, Bridget Galarza MD, Zoë Ulrich MD, Mani Lopez MD, Cristela Raphael MD, Agustín Solorio MD, Preet Callahan MD, Melisa Mejia MD, Rolando Batista DO, Peri Strong MD, John Calix MD, Anish Canada DO, Felicia Capps MD, Tiburcio Duran DO, Naty Blankenship MD, Maryjo Murrell MD, Gopal Isabel MD, MD Dontae, Carroll Duque MD, Kirit Bowles MD, Agustin Obrien MD, Tyree Cuevas MD, Victor Manuel Carcamo MD, Mark Carrillo DO, Vanessa Cook MD, Alfa Cardozo DO, Tab Luis MD, Rolando Mercado MD, Jenna Mercado MD, Nguyen Estrada MD, Samantha Betts, SPECIAL TECHNICAL OPERATIONS OFFICER, Gertrude Currie, SPECIAL TECHNICAL OPERATIONS OFFICER, Mark Mata, SPECIAL TECHNICAL OPERATIONS OFFICER, Daphne Piña, FABIANA, Nicole Olivas, MOOSE, Alesha Hutchison, MOOSE, Mary Sands, MOOSE, Chanel Price, SPECIAL TECHNICAL OPERATIONS OFFICER, Lisbeth Desai, LUZMARIA, Danelle Rosas, SPECIAL TECHNICAL OPERATIONS OFFICER, Velma De La Cruz, SPECIAL TECHNICAL OPERATIONS OFFICER, Kathya Kim, SPECIAL TECHNICAL OPERATIONS OFFICER, Corina Hayward, SPECIAL TECHNICAL OPERATIONS OFFICER, Taurus Esteban PA-C, Linda Chino CNP, Alicia Blackman, OBJECTS CONSERVATOR, Mendy Fajardo, MOOSE, Nedra Isbell, MOOSE, Itzel Luna, MOOSE [facility] IN-PATIENT SERVICE [facility] Progress Note 01/26/2025 3:49 PM Name: Ambrosio Ramírez Acct: [id number] Room: [address] [place] [address] Day: 4 Admit Date: 01/22/2025 3:32 AM PCP: Davion Stephenson DO Code Status: Full Code Subjective: C/C: No chief complaint on file. Interval History Status: improved. Patient seen examined at bedside. No new bruising except for where he had lab draws. Otherwise doing well. Denies any dizziness, abdominal pain. Did discuss H. pylori status. Started on quadruple therapy Brief History: 64-year-old male past medical history of hypertriglyceridemia, AAA repair, presents with bleeding from femoral site, had some blisters in his mouth and was found to have acute thrombocytopenia. Patient was evaluated by hematology oncology. He received IVIG as well as Decadron for 4 days. Patient found to be positive for H. pylori and started on quadruple therapy. Review of Systems: Constitutional: negative for chills, fevers, sweats Respiratory: negative for cough, dyspnea on exertion, shortness of breath, wheezing Cardiovascular: negative for chest pain, chest pressure/discomfort, lower extremity edema, palpitations Gastrointestinal: negative for abdominal pain, constipation, diarrhea, nausea, vomiting Neurological: negative for dizziness, headache Medications: Allergies: Allergies Allergen Reactions Heparin HIT Current Meds: Scheduled Meds: bismuth subsalicylate 30 mL Oral 4x Daily pantoprazole 40 mg Oral BID AC tetracycline 500 mg Oral 4x Daily metroNIDAZOLE 500 mg Oral 4 times per day rosuvastatin 10 mg Oral Nightly sodium chloride flush 5-40 mL IntraVENous 2 times per day Continuous Infusions: sodium chloride Stopped (01/23/25 0854) PRN Meds: sodium chloride flush, sodium chloride, potassium chloride OR potassium chloride, magnesium sulfate, ondansetron OR ondansetron, polyethylene glycol, acetaminophen OR acetaminophen, labetalol, albuterol Data: Past Medical History: has no past medical history on file. Social History: reports that he has quit smoking. His smoking use included cigarettes. He started smoking about 34 years ago. He has a 17.1 pack-year smoking history. He has never used smokeless tobacco. He reports that he does not drink alcohol and does not use drugs. Family History: No family history on file. Vitals: BP (!) 109/58 Pulse 65 Temp 97.6 ??F (36.4 ??C) (Oral) Resp 17 Ht 1.803 m (5' 11 ) Wt 73.5 kg (162 lb) SpO2 98% BMI 22.59 kg/m?? Temp (24hrs), Av.7 ??F (36.5 ??C), Min:97.3 ??F (36.3 ??C), Max:98.2 ??F (36.8 ??C) No results for input(s): POCGLU in the last 72 hours. I/O (24Hr): Intake/Output Summary (Last 24 hours) at 01/26/2025 1549 Last data filed at 01/26/2025 0455 Gross per 24 hour Intake 480 ml Output 1550 ml Net -1070 ml Labs: Hematology: Recent Labs 01/24/25 1516 01/25/25 0632 01/26/25 0307 WBC 6.3 9.5 9.9 RBC 3.72* 3.63* 3.42* HGB 10.7* 10.4* 9.8* HCT 33.1* 32.2* 30.3* MCV 89.0 88.7 88.6 MCH 28.8 28.7 28.7 MCHC 32.3 32.3 32.3 RDW 12.9 13.1 13.0 PLT See Reflexed IPF Result See Reflexed IPF Result See Reflexed IPF Result Chemistry: Recent Labs 01/24/25 0332 01/25/25 0632 01/26/25 0307 NA 133* 134* 132* K 4.2 4.0 4.0 CL 104 101 103 CO2 20 22 21 GLUCOSE 97 87 95 BUN 21 16 17 CREATININE 0.5* 0.7 0.6* ANIONGAP 9 11 8* LABGLOM >90 >90 >90 CALCIUM 8.6 8.7 8.3* Recent Labs 01/24/25 0332 AST 24 ALT 28 ALKPHOS 61 BILITOT 0.6 BILIDIR 0.1 ABG: Lab Results Component Value Date/Time POCPH 7.511 01/22/2025 10:30 AM POCPCO2 27.3 01/22/2025 10:30 AM POCPO2 87.1 01/22/2025 10:30 AM POCHCO3 21.9 01/22/2025 10:30 AM PBEA 0.2 01/22/2025 10:30 AM [id number] 97.7 01/22/2025 10:30 AM Lab Results Component Value Date/Time SPECIAL RH 9ML 01/22/2025 12:13 PM Lab Results Component Value Date/Time CULTURE NO GROWTH 4 DAYS 01/22/2025 12:13 PM Radiology: CT CHEST W CONTRAST Result Date: 01/23/2025 1. No evidence of malignancy in the chest. 2. Mild centrilobular emphysema. 3. Coronary artery atherosclerosis. 4. Hepatic steatosis. US LIVER SPLEEN Result Date: 01/22/2025 1. Unremarkable right upper quadrant ultrasound. 2. Normal spleen. XR CHEST PORTABLE Result Date: 01/22/2025 No acute pulmonary findings. Physical Examination: General appearance: alert, cooperative and no distress Mental Status: oriented to person, place and time and normal affect Lungs: clear to auscultation bilaterally, normal effort Heart: regular rate and rhythm, no murmur Abdomen: soft, nontender, nondistended, normal bowel sounds, no masses, hepatomegaly, splenomegaly Extremities: no edema, redness, tenderness in the calves Skin: no gross lesions, rashes, induration Assessment: Hospital Problems Last Modified POA * (Principal) Thrombocytopenia 01/25/2025 Yes Rash 01/22/2025 Yes S/P AAA repair 01/23/2025 Yes H. pylori infection 01/26/2025 Yes Plan: Started on quadruple therapy for H. pylori Status post Decadron, IVIG. Appreciate hematology oncology recommendations. Platelets are 17 slowlyimproving Hyperlipidemia continue Crestor History of AAA repair. At this time continue to hold aspirin as patient is still high risk for rebleeding Discussed with nurse during rounds Melisa Mejia MD 01/26/2025 3:49 PM * Robel Mccormack MD - 01/26/2025 8:49 AM EDT Images from the original note were not included. Today's Date: 01/26/2025 Patient Name: Ambrosio Ramírez Date of admission: 01/22/2025 3:32 AM Patient's age: 64 y.o., 1960 Admission Dx: Thrombocytopenia [D69.6] Reason for Consult: management recommendations Requesting Physician: No admitting provider for patient encounter. CHIEF COMPLAINT: Thrombocytopenia. Rash. History Obtained From: patient, electronic medical record Interval Changes: Patient seen and examined at bedside. Chart, labs and vitals reviewed. No acute overnight events Platelet count today 17 with immature platelet fraction 26.4% Hemoglobin 9.8 KIM pending SPEP and immunofixation in process Stool for H. pylori is positive He denies further bruising He received a third dose of IVIG yesterday HISTORY OF PRESENT ILLNESS: The patient is a 64 y.o. male who is transferred from outside facility to [facility] for higher level of care. Patient initially presented to the [facility] with chief complaint of bleeding from access site in the right groin for his AAA repair. Patient was taking a shower and noticed flecks of blood on the dressing at the exit site. Patient went to the ER for checkup. Lab workup shows platelet count of 4000 patient also noted to have diffuse petechiae including blood-filled blisters in his mouth. Denies any dark bowel movements. Denies any recent illness. Denies abdominal pain. Patient underwent CT abdomen pelvis which showed patent graft and 4.8 cm thrombosed inf rarenal fusiform abdominal aorta with no leak. No abdominal bleeding noted. Patient started on high-dose Decadron 40 mg daily. Patient being closely monitored in the ICU. Lab workup done so far shows negative hepatitis panel. Cultures so far negative H. pylori testing pending. HIT antibody panel pending. Platelet count from this morning was 2. ONOFRE screen pending COVIDtest negative HIV screen negative Past Medical History: Aortic aneurysm Past Surgical History: Aortic aneurysm repair Medications: Prior to Admission medications Not on File Current Facility-Administered Medications Medication Dose Route Frequency Provider Last Rate Last Admin dexAMETHasone (DECADRON) 40 mg in sodium chloride 0.9 % 50 mL IVPB 40 mg IntraVENous Once Melisa Mejia MD rosuvastatin (CRESTOR) tablet 10 mg 10 mg Oral Nightly Earlene Charles MD 10 mg at 01/25/252044 pantoprazole (PROTONIX) tablet 40 mg 40 mg Oral QAM AC Pérez Carmona MD 40 mg at 01/26/25 0601 sodium chloride flush 0.9 % injection 5-40 mL 5-40 mL IntraVENous 2 times per day Vitor Joseph MD 10 mL at 01/25/252044 sodium chloride flush 0.9 % injection 5-40 mL 5-40 mL IntraVENous PRN Vitor Joseph MD 0.9 % sodium chloride infusion IntraVENous PRN Vitor Joseph MD Stopped at 01/23/25 0854 potassium chloride 20 mEq/50 mL IVPB (Central Line) 20 mEq IntraVENous PRN Vitor Joseph MD Or potassium chloride 10 mEq/100 mL IVPB (Peripheral Line) 10 mEq IntraVENous PRN Vitor Joseph MD magnesium sulfate 2000 mg in 50 mL IVPB premix 2,000 mg IntraVENous PRN Vitor Joseph MD ondansetron (ZOFRAN-ODT) disintegrating tablet 4 mg 4 mg Oral Q8H PRN Vitor Joseph MD Or ondansetron (ZOFRAN) injection 4 mg 4 mg IntraVENous Q6H PRN Vitor Joseph MD polyethylene glycol (GLYCOLAX) packet 17 g 17 g Oral Daily PRN Vitor Joseph MD 17 g at 01/23/25 0842 acetaminophen (TYLENOL) tablet 650 mg 650 mg Oral Q6H PRN Vitor Joseph MD Or acetaminophen (TYLENOL) suppository 650 mg 650 mg Rectal Q6H PRN Vitor Joseph MD labetalol (NORMODYNE;TRANDATE) injection 10 mg 10 mg IntraVENous Q4H PRN Milind Corley MD albuterol (PROVENTIL) (2.5 MG/3ML) 0.083% nebulizer solution 2.5 mg 2.5 mg Nebulization Q4H PRN Uzair Wilson MD Allergies: Heparin Social History: reports that he has quit smoking. His smoking use included cigarettes. He started smoking about 34 years ago. He has a 17.1 pack-year smoking history. He has never used smokeless tobacco. He reports that he does not drink alcohol and does not use drugs. Family History: Hypertension REVIEW OF SYSTEMS: Constitutional: No fever or chills. No night sweats, no weight loss Eyes: No eye discharge, double vision, or eye pain HEENT: negative for sore mouth, sore throat, hoarseness and voice change Respiratory: negative for cough , sputum, dyspnea, wheezing, hemoptysis, chest pain Cardiovascular: negative for chest pain, dyspnea, palpitations, orthopnea, PND Gastrointestinal: negative for nausea, vomiting, diarrhea, constipation, abdominal pain, Dysphagia,hematemesis and hematochezia Genitourinary: negative for frequency, dysuria, nocturia, urinary incontinence, and hematuria Integument: negative for rash, skin lesions, bruises. Hematologic/Lymphatic: negative for easy bruising, bleeding, lymphadenopathy, or petechiae Endocrine: negative for heat or cold intolerance,weight changes, change in bowel habits and hair loss Musculoskeletal: negative for myalgias, arthralgias, pain, joint swelling,and bone pain Neurological: negative for headaches, dizziness, seizures, weakness, numbness PHYSICAL EXAM: BP 122/69 Pulse 62 Temp 97.5 ??F (36.4 ??C) (Oral) Resp 16 Ht 1.803 m (5' 11 ) Wt 73.5 kg (162 lb) SpO2 100% BMI 22.59 kg/m?? Temp (24hrs), Av.7 ??F (36.5 ??C), Min:97.5 ??F (36.4 ??C), Max:98.2 ??F (36.8 ??C) General appearance - well appearing, no in pain or distress Mental status - alert and cooperative Eyes - pupils equal and reactive, extraocular eye movements intact Mouth - mucous membranes moist, pharynx normal without lesions Neck - supple, no significant adenopathy Lymphatics - no palpable lymphadenopathy, no hepatosplenomegaly Chest - clear to auscultation, no wheezes, rales or rhonchi, symmetric air entry Heart - normal rate, regular rhythm, normal S1, S2, no murmurs Abdomen - soft, nontender, nondistended, no masses or organomegaly Neurological - alert, oriented, normal speech, no focal findings or movement disorder noted Musculoskeletal - no joint tenderness, deformity or swelling Extremities - peripheral pulses normal, no pedal edema, no clubbing or cyanosis Skin - normal coloration and turgor, ++ generalized petechiae and bruising DATA: Labs: Results for orders placed or performed during the hospital encounter of 01/22/25 MRSA DNA Probe, Nasal Specimen: Nasal Result Value Ref Range Specimen Description .NASAL SWAB MRSA, DNA, Nasal NEGATIVE NEGATIVE Culture, Blood 1 Specimen: Blood Result Value Ref Range Specimen Description .BLOOD Special Requests LH 10ML Culture NO GROWTH 3 DAYS Culture, Blood 1 Specimen: Blood Result Value Ref Range Specimen Description .BLOOD Special Requests RH 9ML Culture NO GROWTH 3 DAYS Urinalysis with Reflex to Culture Specimen: Urine, clean catch Result Value Ref Range Color, UA Yellow Yellow Turbidity UA Clear Clear Glucose, Ur NEGATIVE NEGATIVE mg/dL Bilirubin, Urine NEGATIVE NEGATIVE Ketones, Urine NEGATIVE NEGATIVE mg/dL Specific Lena, UA 1.052 (H) 1.005 - 1.030 Urine Hgb MODERATE (A) NEGATIVE pH, Urine 5.5 5.0 - 8.0 Protein, UA NEGATIVE NEGATIVE mg/dL Urobilinogen, Urine Normal 0.0 - 1.0 EU/dL Nitrite, Urine NEGATIVE NEGATIVE Leukocyte Esterase, Urine NEGATIVE NEGATIVE APTT Result Value Ref Range APTT 66.5 (H) 23.0 - 36.5 sec Protime-INR Result Value Ref Range Protime 14.2 11.7 - 14.9 sec INR 1.1 Basic Metabolic Panel w/ Reflex to MG Result Value Ref Range Sodium 136 136 - 145 mmol/L Potassium 3.9 3.7 - 5.3 mmol/L Chloride 101 98 - 107 mmol/L CO2 20 20 - 31 mmol/L Anion Gap 15 9 - 16 mmol/L Glucose 112 (H) 74 - 99 mg/dL BUN 13 8 - 23 mg/dL Creatinine 0.6 (L) 0.7 - 1.2 mg/dL Est, Glom Filt Rate >90 >60 mL/min/1.73m2 Calcium 9.2 8.6 - 10.4 mg/dL CBC with Auto Differential Result Value Ref Range WBC 8.3 3.5 - 11.3 k/uL RBC 4.70 4.21 - 5.77 m/uL Hemoglobin 13.6 13.0 - 17.0 g/dL Hematocrit 40.6 (L) 40.7 - 50.3 % MCV 86.4 82.6 - 102.9 fL MCH 28.9 25.2 - 33.5 pg MCHC 33.5 28.4 - 34.8 g/dL RDW 12.8 11.8 - 14.4 % Platelets See Reflexed IPF Result 138 - 453 k/uL Platelet, Fluorescence <2 (LL) 138 - 453 k/uL Platelet, Immature Fraction 0.0 (L) 1.1 - 10.3 % NRBC Automated 0.0 0.0 per 100 WBC Neutrophils % 68 (H) 36 - 65 % Lymphocytes % 19 (L) 24 - 43 % Monocytes % 11 3 - 12 % Eosinophils % 0 (L) 1 - 4 % Basophils % 0 0 - 2 % Immature Granulocytes % 1 (H) 0 % Neutrophils Absolute 5.63 1.50 - 8.10 k/uL Lymphocytes Absolute 1.60 1.10 - 3.70 k/uL Monocytes Absolute 0.94 0.10 - 1.20 k/uL Eosinophils Absolute <0.03 0.00 - 0.44 k/uL Basophils Absolute 0.03 0.00 - 0.20 k/uL Immature Granulocytes Absolute 0.05 0.00 - 0.30 k/uL Haptoglobin Result Value Ref Range Haptoglobin 381 (H) 30 - 200 mg/dL Lactic Acid Result Value Ref Range Lactic Acid, Whole Blood 1.3 0.7 - 2.1 mmol/L Lactate Dehydrogenase Result Value Ref Range LD 193 135 - 225 U/L Path Review, Smear Result Value Ref Range Pathologist Review ELECTRONICALLY SIGNED. TAMANNA M. GONZALES, M.D. Reticulocytes Result Value Ref Range Retic Ct Pct 0.8 0.5 - 1.9 % Absolute Retic # 0.039 0.030 - 0.080 M/uL Immature Retic Fract 17.0 2.7 - 18.3 % Retic Hemoglobin 29.9 28.2 - 35.7 pg Sedimentation Rate Result Value Ref Range Sed Rate, Automated 119 (H) 0 - 20 mm/Hr TSH reflex to FT4 Result Value Ref Range TSH 1.24 0.27 - 4.20 uIU/mL Microscopic Urinalysis Result Value Ref Range WBC, UA None 0 - 5 /HPF RBC, UA 10 TO 20 0 - 4 /HPF Casts UA 0 - 8 /LPF None Reference range defined for non-centrifuged specimen. Epithelial Cells, UA None 0 - 5 /HPF Bacteria, UA None None HIV Screen Result Value Ref Range HIV Ag/Ab NONREACTIVE NONREACTIVE Procalcitonin Result Value Ref Range Procalcitonin 0.06 0.00 - 0.09 ng/mL Fibrinogen Result Value Ref Range Fibrinogen 681 (H) 203 - 521 mg/dL Fibrin Split Products Result Value Ref Range FDP >5 (H) <5 ug/mL ONOFRE SCREEN WITH REFLEX Result Value Ref Range ONOFRE POSITIVE (A) NEGATIVE DAVID Antibodies Screen 0.5 <0.7 U/mL Anti ds DNA 35.0 (H) <10.0 IU/mL CK Result Value Ref Range Total CK 62 39 - 308 U/L C-Reactive Protein Result Value Ref Range CRP 38.0 (H) 0.0 - 5.0 mg/L Hepatic Function Panel Result Value Ref Range Albumin 3.8 3.5 - 5.2 g/dL Alkaline Phosphatase 84 40 - 129 U/L ALT 36 10 - 50 U/L AST 28 10 - 50 U/L Total Bilirubin 0.5 0.0 - 1.2 mg/dL Bilirubin, Direct 0.3 (H) 0.0 - 0.2 mg/dL Bilirubin, Indirect 0.2 0.0 - 1.0 mg/dL Total Protein 8.0 6.6 - 8.7 g/dL Globulin 4.2 g/dL Albumin/Globulin Ratio 0.9 (L) 1.0 - 2.5 Myoglobin, Blood Result Value Ref Range Myoglobin 27 (L) 28 - 72 ng/mL TEG Global Hemostasis with Lysis Result Value Ref Range Reaction Time TEG 14.7 (H) 4.6 - 9.1 min LY30(Lysis) TEG 0.0 0.0 - 2.6 % MA(Max Clot) Rapid TEG <40.0 (L) 52.0 - 70 mm Fibrinogen, Functional TEG 39.8 (H) 15.0 - 32.0 mm Hepatitis Panel, Acute Result Value Ref Range Hepatitis B Surface Ag NONREACTIVE NONREACTIVE Hepatitis C Ab NONREACTIVE NONREACTIVE Hep B Core Ab, IgM NONREACTIVE NONREACTIVE Hep A IgM NONREACTIVE NONREACTIVE Basic Metabolic Panel w/ Reflex to MG Result Value Ref Range Sodium 135 (L) 136 - 145 mmol/L Potassium 3.9 3.7 - 5.3 mmol/L Chloride 101 98 - 107 mmol/L CO2 19 (L) 20 - 31 mmol/L Anion Gap 15 9 - 16 mmol/L Glucose 111 (H) 74 - 99 mg/dL BUN 13 8 - 23 mg/dL Creatinine 0.6 (L) 0.7 - 1.2 mg/dL Est, Glom Filt Rate >90 >60 mL/min/1.73m2 Calcium 9.3 8.6 - 10.4 mg/dL CBC with Auto Differential Result Value Ref Range WBC 7.2 3.5 - 11.3 k/uL RBC 4.67 4.21 - 5.77 m/uL Hemoglobin 13.4 13.0 - 17.0 g/dL Hematocrit 40.9 40.7 - 50.3 % MCV 87.6 82.6 - 102.9 fL MCH 28.7 25.2 - 33.5 pg MCHC 32.8 28.4 - 34.8 g/dL RDW 12.9 11.8 - 14.4 % Platelets See Reflexed IPF Result 138 - 453 k/uL Platelet, Fluorescence 2 (LL) 138 - 453 k/uL Platelet, Immature Fraction 4.8 1.1 - 10.3 % NRBC Automated 0.0 0.0 per 100 WBC Neutrophils % 66 (H) 36 - 65 % Lymphocytes % 22 (L) 24 - 43 % Monocytes % 11 3 - 12 % Eosinophils % 1 1 - 4 % Basophils % 0 0 - 2 % Immature Granulocytes % 0 0 % Neutrophils Absolute 4.73 1.50 - 8.10 k/uL Lymphocytes Absolute 1.57 1.10 - 3.70 k/uL Monocytes Absolute 0.79 0.10 - 1.20 k/uL Eosinophils Absolute 0.04 0.00 - 0.44 k/uL Basophils Absolute 0.03 0.00 - 0.20 k/uL Immature Granulocytes Absolute 0.03 0.00 - 0.30 k/uL Heparin-Induced Platelet Antibody Result Value Ref Range Heparin Induced Plt Ab 1.247 (H) 0.000 - 0.400 O.D. D-Dimer, Quantitative Result Value Ref Range D-Dimer, Quant 2.86 (H) 0.00 - 0.57 ug/mL FEU CBC with Auto Differential Result Value Ref Range WBC 5.1 3.5 - 11.3 k/uL RBC 4.87 4.21 - 5.77 m/uL Hemoglobin 13.9 13.0 - 17.0 g/dL Hematocrit 42.8 40.7 - 50.3 % MCV 87.9 82.6 - 102.9 fL MCH 28.5 25.2 - 33.5 pg MCHC 32.5 28.4 - 34.8 g/dL RDW 13.0 11.8 - 14.4 % Platelets See Reflexed IPF Result 138 - 453 k/uL Platelet, Fluorescence <2 (LL) 138 - 453 k/uL Platelet, Immature Fraction 0.0 (L) 1.1 - 10.3 % NRBC Automated 0.0 0.0 per 100 WBC Neutrophils % 78 (H) 36 - 65 % Lymphocytes % 15 (L) 24 - 43 % Monocytes % 6 3 - 12 % Eosinophils % 0 (L) 1 - 4 % Basophils % 0 0 - 2 % Immature Granulocytes % 1 (H) 0 % Neutrophils Absolute 4.02 1.50 - 8.10 k/uL Lymphocytes Absolute 0.75 (L) 1.10 - 3.70 k/uL Monocytes Absolute 0.33 0.10 - 1.20 k/uL Eosinophils Absolute <0.03 0.00 - 0.44 k/uL Basophils Absolute <0.03 0.00 - 0.20 k/uL Immature Granulocytes Absolute 0.03 0.00 - 0.30 k/uL Basic Metabolic Panel w/ Reflex to MG Result Value Ref Range Sodium 133 (L) 136 - 145 mmol/L Potassium 3.7 3.7 - 5.3 mmol/L Chloride 102 98 - 107 mmol/L CO2 19 (L) 20 - 31 mmol/L Anion Gap 12 9 - 16 mmol/L Glucose 88 74 - 99 mg/dL BUN 20 8 - 23 mg/dL Creatinine 0.6 (L) 0.7 - 1.2 mg/dL Est, Glom Filt Rate >90 >60 mL/min/1.73m2 Calcium 8.7 8.6 - 10.4 mg/dL CBC with Auto Differential Result Value Ref Range WBC 7.5 3.5 - 11.3 k/uL RBC 4.12 (L) 4.21 - 5.77 m/uL Hemoglobin 11.8 (L) 13.0 - 17.0 g/dL Hematocrit 36.1 (L) 40.7 - 50.3 % MCV 87.6 82.6 - 102.9 fL MCH 28.6 25.2 - 33.5 pg MCHC 32.7 28.4 - 34.8 g/dL RDW 12.8 11.8 - 14.4 % Platelets See Reflexed IPF Result 138 - 453 k/uL Platelet, Fluorescence <2 (LL) 138 - 453 k/uL Platelet, Immature Fraction 28.7 (H) 1.1 - 10.3 % NRBC Automated 0.0 0.0 per 100 WBC Neutrophils % 63 36 - 65 % Lymphocytes % 19 (L) 24 - 43 % Monocytes % 17 (H) 3 - 12 % Eosinophils % 0 (L) 1 - 4 % Basophils % 0 0 - 2 % Immature Granulocytes % 1 (H) 0 % Neutrophils Absolute 4.73 1.50 - 8.10 k/uL Lymphocytes Absolute 1.45 1.10 - 3.70 k/uL Monocytes Absolute 1.24 (H) 0.10 - 1.20 k/uL Eosinophils Absolute <0.03 0.00 - 0.44 k/uL Basophils Absolute <0.03 0.00 - 0.20 k/uL Immature Granulocytes Absolute 0.06 0.00 - 0.30 k/uL [id number] ACTIVITY Result Value Ref Range [id number] Activity >100 >=61 % Vitamin B12 & Folate Result Value Ref Range Vitamin B-12 624 232 - 1245 pg/mL Folate 11.7 4.8 - 24.2 ng/mL Electrophoresis Protein, Serum Result Value Ref Range Total Protein 8.3 6.6 - 8.7 g/dL Albumin (calculated) 3.1 (L) 3.2 - 5.2 g/dL Albumin % 37 (L) 56 - 66 % Eclyo-2-Kshjvnpk 0.4 0.1 - 0.4 g/dL Alpha 1 % 5 3 - 5 % Rwkgn-1-Xdnyhhsk 1.0 (H) 0.5 - 0.9 g/dL Alpha 2 % 11 7 - 12 % Beta Globulin 0.8 0.7 - 1.4 g/dL Beta Percent 10 8 - 13 % Gamma Globulin 3.1 (H) 0.5 - 1.5 g/dL Gamma Globulin % 37 (H) 11 - 19 % Total Prot. Sum 8.4 (H) 6.3 - 8.2 g/dL Total Prot. Sum,% 100 98 - 102 % Protein Electrophoresis, Serum PENDING Pathologist PENDING Cytomegalovirus Ab,IGG,IGM Result Value Ref Range CMV IgG 744.0 (H) <0.5 CMV IgM 0.2 <0.7 SURGICAL PATHOLOGY REPORT Result Value Ref Range Surgical Pathology Report [id number] [facility] CONSULTING PATHOLOGISTS [facility] ANATOMIC PATHOLOGY [address] [place] [address]. [place], [place] [address] SURGICAL PATHOLOGY CONSULTATION Patient Name: AMBROSIO RAMÍREZ V. MR#: [id number] Specimen #[id number] Procedures/Addenda PERIPHERAL BLOOD REPORT Date Ordered: 01/23/2025 Status: Signed Out Date Complete: 01/25/2025 By: Tamanna Gonzales M.D. Date Reported: 01/25/2025 INTERPRETATION Peripheral blood: - Normocytic red blood cells with unremarkable morphology. - White blood cells with normal morphology. No blasts. - Marked thrombocytopenia. RESULTS-COMMENTS PERIPHERAL BLOOD STUDY CBC: Please see the electronic health record for CBC parameters ([id number], 01/22/2025, 04:18). PLATELETS: Marked thrombocytopenia. LEUKOCYTES: White blood cells show normal morphology. No atypical lymphocytes. No dysplasia. There are no blasts. ERYTHROCYTES: Red blood cells show normal morphology. No schistocytes. Note: The electronic health record is reviewed. Tamanna Gonzales M.D. Source: A: Peripheral Blood CBC with Auto Differential Result Value Ref Range WBC 6.2 3.5 - 11.3 k/uL RBC 3.78 (L) 4.21 - 5.77 m/uL Hemoglobin 10.9 (L) 13.0 - 17.0 g/dL Hematocrit 33.6 (L) 40.7 - 50.3 % MCV 88.9 82.6 - 102.9 fL MCH 28.8 25.2 - 33.5 pg MCHC 32.4 28.4 - 34.8 g/dL RDW 13.1 11.8 - 14.4 % Platelets See Reflexed IPF Result 138 - 453 k/uL Platelet, Fluorescence 3 (LL) 138 - 453 k/uL Platelet, Immature Fraction 48.4 (H) 1.1 - 10.3 % NRBC Automated 0.0 0.0 per 100 WBC Neutrophils % 83 (H) 36 - 65 % Lymphocytes % 12 (L) 24 - 43 % Monocytes % 4 3 - 12 % Eosinophils % 0 (L) 1 - 4 % Basophils % 0 0 - 2 % Immature Granulocytes % 1 (H) 0 % Neutrophils Absolute 5.15 1.50 - 8.10 k/uL Lymphocytes Absolute 0.76 (L) 1.10 - 3.70 k/uL Monocytes Absolute 0.22 0.10 - 1.20 k/uL Eosinophils Absolute <0.03 0.00 - 0.44 k/uL Basophils Absolute <0.03 0.00 - 0.20 k/uL Immature Granulocytes Absolute 0.03 0.00 - 0.30 k/uL Basic Metabolic Panel w/ Reflex to MG Result Value Ref Range Sodium 133 (L) 136 - 145 mmol/L Potassium 4.2 3.7 - 5.3 mmol/L Chloride 104 98 - 107 mmol/L CO2 20 20 - 31 mmol/L Anion Gap 9 9 - 16 mmol/L Glucose 97 74 - 99 mg/dL BUN 21 8 - 23 mg/dL Creatinine 0.5 (L) 0.7 - 1.2 mg/dL Est, Glom Filt Rate >90 >60 mL/min/1.73m2 Calcium 8.6 8.6 - 10.4 mg/dL CBC with Auto Differential Result Value Ref Range WBC 8.6 3.5 - 11.3 k/uL RBC 3.83 (L) 4.21 - 5.77 m/uL Hemoglobin 10.8 (L) 13.0 - 17.0 g/dL Hematocrit 34.8 (L) 40.7 - 50.3 % MCV 90.9 82.6 - 102.9 fL MCH 28.2 25.2 - 33.5 pg MCHC 31.0 28.4 - 34.8 g/dL RDW 13.0 11.8 - 14.4 % Platelets See Reflexed IPF Result 138 - 453 k/uL Platelet, Fluorescence 6 (LL) 138 - 453 k/uL Platelet, Immature Fraction 25.9 (H) 1.1 - 10.3 % NRBC Automated 0.0 0.0 per 100 WBC Neutrophils % 70 (H) 36 - 65 % Lymphocytes % 21 (L) 24 - 43 % Monocytes % 8 3 - 12 % Eosinophils % 0 (L) 1 - 4 % Basophils % 0 0 - 2 % Immature Granulocytes % 1 (H) 0 % Neutrophils Absolute 6.03 1.50 - 8.10 k/uL Lymphocytes Absolute 1.79 1.10 - 3.70 k/uL Monocytes Absolute 0.72 0.10 - 1.20 k/uL Eosinophils Absolute <0.03 0.00 - 0.44 k/uL Basophils Absolute 0.03 0.00 - 0.20 k/uL Immature Granulocytes Absolute 0.05 0.00 - 0.30 k/uL Hepatic Function Panel Result Value Ref Range Albumin 3.1 (L) 3.5 - 5.2 g/dL Alkaline Phosphatase 61 40 - 129 U/L ALT 28 10 - 50 U/L AST 24 10 - 50 U/L Total Bilirubin 0.6 0.0 - 1.2 mg/dL Bilirubin, Direct 0.1 0.0 - 0.2 mg/dL Bilirubin, Indirect 0.5 0.0 - 1.0 mg/dL Total Protein 9.5 (H) 6.6 - 8.7 g/dL Globulin 6.4 g/dL Albumin/Globulin Ratio 0.5 (L) 1.0 - 2.5 CBC with Auto Differential Result Value Ref Range WBC 6.3 3.5 - 11.3 k/uL RBC 3.72 (L) 4.21 - 5.77 m/uL Hemoglobin 10.7 (L) 13.0 - 17.0 g/dL Hematocrit 33.1 (L) 40.7 - 50.3 % MCV 89.0 82.6 - 102.9 fL MCH 28.8 25.2 - 33.5 pg MCHC 32.3 28.4 - 34.8 g/dL RDW 12.9 11.8 - 14.4 % Platelets See Reflexed IPF Result 138 - 453 k/uL Platelet, Fluorescence 8 (LL) 138 - 453 k/uL Platelet, Immature Fraction 30.2 (H) 1.1 - 10.3 % NRBC Automated 0.0 0.0 per 100 WBC Neutrophils % 85 (H) 36 - 65 % Lymphocytes % 12 (L) 24 - 43 % Monocytes % 2 (L) 3 - 12 % Eosinophils % 0 (L) 1 - 4 % Basophils % 0 0 - 2 % Immature Granulocytes % 1 (H) 0 % Neutrophils Absolute 5.39 1.50 - 8.10 k/uL Lymphocytes Absolute 0.78 (L) 1.10 - 3.70 k/uL Monocytes Absolute 0.11 0.10 - 1.20 k/uL Eosinophils Absolute <0.03 0.00 - 0.44 k/uL Basophils Absolute <0.03 0.00 - 0.20 k/uL Immature Granulocytes Absolute 0.03 0.00 - 0.30 k/uL Basic Metabolic Panel w/ Reflex to MG Result Value Ref Range Sodium 134 (L) 136 - 145 mmol/L Potassium 4.0 3.7 - 5.3 mmol/L Chloride 101 98 - 107 mmol/L CO2 22 20 - 31 mmol/L Anion Gap 11 9 - 16 mmol/L Glucose 87 74 - 99 mg/dL BUN 16 8 - 23 mg/dL Creatinine 0.7 0.7 - 1.2 mg/dL Est, Glom Filt Rate >90 >60 mL/min/1.73m2 Calcium 8.7 8.6 - 10.4 mg/dL CBC with Auto Differential Result Value Ref Range WBC 9.5 3.5 - 11.3 k/uL RBC 3.63 (L) 4.21 - 5.77 m/uL Hemoglobin 10.4 (L) 13.0 - 17.0 g/dL Hematocrit 32.2 (L) 40.7 - 50.3 % MCV 88.7 82.6 - 102.9 fL MCH 28.7 25.2 - 33.5 pg MCHC 32.3 28.4 - 34.8 g/dL RDW 13.1 11.8 - 14.4 % Platelets See Reflexed IPF Result 138 - 453 k/uL Platelet, Fluorescence 6 (LL) 138 - 453 k/uL Platelet, Immature Fraction 22.8 (H) 1.1 - 10.3 % NRBC Automated 0.0 0.0 per 100 WBC Neutrophils % 62 36 - 65 % Lymphocytes % 28 24 - 43 % Monocytes % 10 3 - 12 % Eosinophils % 0 (L) 1 - 4 % Basophils % 0 0 - 2 % Immature Granulocytes % 1 (H) 0 % Neutrophils Absolute 5.85 1.50 - 8.10 k/uL Lymphocytes Absolute 2.62 1.10 - 3.70 k/uL Monocytes Absolute 0.91 0.10 - 1.20 k/uL Eosinophils Absolute <0.03 0.00 - 0.44 k/uL Basophils Absolute 0.03 0.00 - 0.20 k/uL Immature Granulocytes Absolute 0.05 0.00 - 0.30 k/uL Immunotyping, Serum Result Value Ref Range ITYP Interpretation PENDING Pathologist Review PENDING Basic Metabolic Panel w/ Reflex to MG Result Value Ref Range Sodium 132 (L) 136 - 145 mmol/L Potassium 4.0 3.7 - 5.3 mmol/L Chloride 103 98 - 107 mmol/L CO2 21 20 - 31 mmol/L Anion Gap 8 (L) 9 - 16 mmol/L Glucose 95 74 - 99 mg/dL BUN 17 8 - 23 mg/dL Creatinine 0.6 (L) 0.7 - 1.2 mg/dL Est, Glom Filt Rate >90 >60 mL/min/1.73m2 Calcium 8.3 (L) 8.6 - 10.4 mg/dL CBC with Auto Differential Result Value Ref Range WBC 9.9 3.5 - 11.3 k/uL RBC 3.42 (L) 4.21 - 5.77 m/uL Hemoglobin 9.8 (L) 13.0 - 17.0 g/dL Hematocrit 30.3 (L) 40.7 - 50.3 % MCV 88.6 82.6 - 102.9 fL MCH 28.7 25.2 - 33.5 pg MCHC 32.3 28.4 - 34.8 g/dL RDW 13.0 11.8 - 14.4 % Platelets See Reflexed IPF Result 138 - 453 k/uL Platelet, Fluorescence 17 (LL) 138 - 453 k/uL Platelet, Immature Fraction 26.4 (H) 1.1 - 10.3 % NRBC Automated 0.3 (H) 0.0 per 100 WBC Neutrophils % 70 (H) 36 - 65 % Lymphocytes % 20 (L) 24 - 43 % Monocytes % 9 3 - 12 % Eosinophils % 0 (L) 1 - 4 % Basophils % 0 0 - 2 % Immature Granulocytes % 1 (H) 0 % Neutrophils Absolute 6.92 1.50 - 8.10 k/uL Lymphocytes Absolute 1.98 1.10 - 3.70 k/uL Monocytes Absolute 0.84 0.10 - 1.20 k/uL Eosinophils Absolute <0.03 0.00 - 0.44 k/uL Basophils Absolute <0.03 0.00 - 0.20 k/uL Immature Granulocytes Absolute 0.09 0.00 - 0.30 k/uL Arterial Blood Gas, POC Result Value Ref Range POC pH 7.511 (H) 7.350 - 7.450 POC pCO2 27.3 (L) 35.0 - 48.0 mm Hg POC PO2 87.1 83.0 - 108.0 mm Hg POC HCO3 21.9 21.0 - 28.0 mmol/L Positive Base Excess, Art 0.2 0.0 - 3.0 mmol/L POC O2 SAT 97.7 94.0 - 98.0 % O2 Delivery Device Room Air Jone Test POSITIVE Sample Site Right Radial Artery POCT Glucose Result Value Ref Range POC Glucose 126 (H) 74 - 100 mg/dL DIRECT ANTIGLOBULIN TEST Result Value Ref Range FELIPE, Polyspecific NEGATIVE IMAGING DATA: CT CHEST W CONTRAST Result Date: 01/23/2025 EXAMINATION: CT OF THE CHEST WITH CONTRAST 01/22/2025 7:55 pm TECHNIQUE: CT of the chest was performed with the administration of intravenous contrast. Multiplanar reformatted images are provided for review. Automated exposure control, iterative reconstruction, and/or weight based adjustment of the mA/kV was utilized to reduce the radiation dose to as low as reasonably achievable. COMPARISON: Correlation is made to chest radiograph dated January 22, 2025. No similar exam for comparison. HISTORY: ORDERING SYSTEM PROVIDED HISTORY: [facility] TECHNOLOGIST PROVIDED HISTORY: [facility] FINDINGS: Mediastinum: Thoracic aorta is atherosclerotic. Coronary artery atherosclerosis. Thoracic aorta and central portion of the pulmonary artery opacify normally. The ascending thoracic aorta is of normal caliber. Heart size is normal. There is no pericardial effusion. No evidence of hilar adenopathy. Enlarged subcarinal node measures 1.4 cm in the short axis dimension. There are coarsely calcified subcarinal and right hilar nodes. Lungs/pleura: Mild centrilobular emphysema. There are calcified granulomas in the right lung. Bandlike opacity in the left lower lobe is probably scarring or atelectasis. Central tracheobronchial airways are unremarkable. No bronchiectasis or bronchial wall thickening. No focal consolidation, pleural effusion, or pneumothorax. Symmetric bilateral apical scarring. Upper Abdomen: Hyperdense material layers in the dependent portion of the gallbladder lumen. Differential includes excreted contrast from prior CT of the abdomen and pelvis dated January 21, 2025, small stones, and sludge. Multiple hypodensities in the liver are probably cysts. Hepatic steatosis. No acute abnormality in the upper abdomen. Soft Tissues/Bones: No aggressive lytic or blastic bony lesion. 1. No evidence of malignancy in the chest. 2. Mild centrilobular emphysema. 3. Coronary artery atherosclerosis. 4. Hepatic steatosis. US LIVER SPLEEN Result Date: 01/22/2025 EXAMINATION: RIGHT UPPER QUADRANT ULTRASOUND 01/22/2025 8:30 pm COMPARISON: January 21, 2025 HISTORY: ORDERING SYSTEM PROVIDED HISTORY: Acute onset thrombocytopenia. Rule out hepatosplenomegaly TECHNOLOGIST PROVIDED HISTORY: Acute onset thrombocytopenia. Rule out hepatosplenomegaly FINDINGS: LIVER: The l iver demonstrates normal echogenicity without evidence of intrahepatic biliary ductal dilatation. Benign cysts measure up to 12 mm. BILIARY SYSTEM: Gallbladder is unremarkable without evidence of pericholecystic fluid, wall thickening or stones. Negative sonographic Tate's sign. Common bile ductis within normal limits measuring 4 mm. RIGHT KIDNEY: The right kidney is grossly unremarkable without evidence of hydronephrosis. The right kidney measures 11.1 cm in length. PANCREAS: Visualized portions of the pancreas are unremarkable. OTHER: No evidence of right upper quadrant ascites. The spleen is normal in size, measuring 9.2 cm. 1. Unremarkable right upper quadrant ultrasound. 2. Normal spleen. XR CHEST PORTABLE Result Date: 01/22/2025 EXAMINATION: ONE XRAY VIEW OF THE CHEST 01/22/2025 10:57 am COMPARISON: None. HISTORY: ORDERING SYSTEM PROVIDED HISTORY: To look for pnemonia TECHNOLOGIST PROVIDED HISTORY: To look for pnemonia FINDINGS: Lungs: Clear. Pleura: No effusion or pneumothorax. Cardiomediastinal silhouette: Normal contours. Bones: No acute bony findings. Soft tissues: Normal. No acute pulmonary findings. 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 pylori stool antigen positive Recent AAA repair Petechial rash Blisters RECOMMENDATIONS: I reviewed the labs/imaging available to me,outside records and discussed with the patient.I explained to the patient the nature of this problem. I explained the significance of these abnormalities and possible etiology and management optionsFollow-up on peripheral smear however given isolated thrombocytopenia ITP is high in the differential. Peripheral blood smear showing marked thrombocytopenia. No blasts and no schistocytes HIT panel came back positive, KIM pending Status post Decadron 40 mg daily x 4 doses and IVIG 1 g/kg x 3 With patient's such severe thrombocytopenia, I still suspect primary or secondary ITP as HIT typically does not lead to undetectable platelet counts H. pylori stool antigen test is positive Expect platelet count to normalize with resolution of infection Antibiotics per primary Patient not a candidate for any anticoagulation Transfuse platelets only if patient is bleeding Fall precautions He is at an increased risk of bleeding as well as spontaneous brain bleeds with platelet count lessthan 10,000 Continue to monitor platelet count closely. We will continue to follow Final recommendations to follow after discussing with attending physician, Dr. Mccormack Discussed with patient and Nurse. Thank you for asking us to see this patient. Kathi Angel APRN - MOOSE [facility] Hematology/Oncology 01/26/2025 I have discussed the care of this patient and I have personally examined the patient myselft and taken ros and hpi , including pertinent history and exam findings, labs, imaging , medication ad otherrelavent clincal data. I have reviewed the elliott elements of all parts of the encounter with the Nurse Practitioner . I agree with the assessment, plan and orders as documented by the SENIOR APPLICATION SOFTWARE ENGINEER with the following addendum More than 50% of the time was spent taking care of this patient in addition to the nurse practitioner time. That also included history taking follow-up physical examination and review of system. KIM negative H. pylori tested positive Platelet count up to 17,000, immature platelet fraction 26,000 Completed course of Decadron Repeat CBC tomorrow. ITP likely secondary to H. pylori. Expect to improve with treatment of H. pylori Robel Mccormack M.D. This note is created with the assistance of a speech recognition program. While intending to generate a document that actually reflects the content of the visit, the document can still have some errors including those of syntax and sound a like substitutions which may escape proof reading. It such instances, actual meaning can be extrapolated by contextual diversion. * Anish Canada DO - 01/25/2025 11:49 AM EDT Images from the original note were not included. [facility] Office: [phone] Harman Canada DO, Jose Alfredo Spear DO, Jose Yanes DO, Errol Mullins DO, Bridget Galarza MD, Zoë Ulrich MD, Mani Lopez MD, Cristela Raphael MD, Agustín Solorio MD, Preet Callahan MD, Melisa Mejia MD, Rolando Batista DO, Peri Strong MD, John Calix MD, Anish Canada DO, Felicia Capps MD, Tiburcio Duran DO, Naty Blankenship MD, Maryjo Murrell MD, Gopal Isabel MD, MD Dontae, Carroll Duque MD, Kirit Bowles MD, Agustin Obrien MD, Tyree Cuevas MD, Victor Manuel Carcamo MD, Mark Carrillo DO, Vanessa Cook MD, Alfa Cardozo DO, Tab Luis MD, Rolando Mercado MD, Jenna Mercado MD, Nguyen Estrada MD, Samantha Betts CNP, Gertrude Currie CNP, Mark Mata CNP, Daphne Piña DNP, Nicole Olivas, MOOSE, Alesha Hutchison, MOOSE, Mary Sands CNP, Chanel Price, SPECIAL TECHNICAL OPERATIONS OFFICER, Lisbeth Desai PA-C, Danelle Rosas CNP, Velma De La Cruz CNP, Kathya Kim, MOOSE, Corina Hayward, MOOSE, Taurus Esteban PA-C, Linda Chino, MOOSE, Alicia Blackman, SHAWNA, Mendy Fajardo, MOOSE, Nedra Isbell, MOOSE, Itzel Luna, MOOSE [facility] IN-PATIENT SERVICE [facility] Progress Note 01/25/2025 11:50 AM Name: Ambrosio Ramírez Acct: [id number] Room: [address] [place] [address] Day: 3 Admit Date: 01/22/2025 3:32 AM PCP: Davion Stephenson DO Code Status: Full Code Subjective: Patient seen in follow-up for ITP, patient states I feel fine Patient feels well. He has multiple questions regarding ITP. Had long discussion with him about ITPand its pathogenesis. Multiple questions answered regarding this. He appreciates the information and at this point in time we are waiting recovery of his platelets. He is presently maintained on Decadron. He is status post IVIG. Will await hematology's input as to whether or not he will receive further IVIG. Platelet count tested this morning is 6. Medications: Allergies: Allergies Allergen Reactions Heparin HIT Current Meds: Scheduled Meds: rosuvastatin 10 mg Oral Nightly pantoprazole 40 mg Oral QAM AC sodium chloride flush 5-40 mL IntraVENous 2 times per day Continuous Infusions: sodium chloride Stopped (01/23/25 0854) PRN Meds: sodium chloride flush, sodium chloride, potassium chloride OR potassium chloride, magnesium sulfate, ondansetron OR ondansetron, polyethylene glycol, acetaminophen OR acetaminophen, labetalol, albuterol Data: Vitals: BP 114/62 Pulse 63 Temp 97.5 ??F (36.4 ??C) (Oral) Resp 14 Ht 1.803 m (5' 11 ) Wt 66 kg (145 lb 9.6 oz) SpO2 100% BMI 20.31 kg/m?? Temp (24hrs), Av.4 ??F (36.3 ??C), Min:97.3 ??F (36.3 ??C), Max:97.6 ??F (36.4 ??C) No results for input(s): POCGLU in the last 72 hours. I/O (24Hr): Intake/Output Summary (Last 24 hours) at 01/25/2025 1150 Last data filed at 01/25/2025 0623 Gross per 24 hour Intake 1440 ml Output 1375 ml Net 65 ml Labs: Hematology: Recent Labs 01/24/25 0332 01/24/25 1516 01/25/25 0632 WBC 8.6 6.3 9.5 RBC 3.83* 3.72* 3.63* HGB 10.8* 10.7* 10.4* HCT 34.8* 33.1* 32.2* MCV 90.9 89.0 88.7 MCH 28.2 28.8 28.7 MCHC 31.0 32.3 32.3 RDW 13.0 12.9 13.1 PLT See Reflexed IPF Result See Reflexed IPF Result See Reflexed IPF Result Chemistry: Recent Labs 01/23/25 0402 01/24/25 0332 01/25/25 0632 NA 133* 133* 134* K 3.7 4.2 4.0 CL 102 104 101 CO2 19* 20 22 GLUCOSE 88 97 87 BUN 20 21 16 CREATININE 0.6* 0.5* 0.7 ANIONGAP 12 9 11 LABGLOM >90 >90 >90 CALCIUM 8.7 8.6 8.7 Recent Labs 01/24/25 0332 AST 24 ALT 28 ALKPHOS 61 BILITOT 0.6 BILIDIR 0.1 ABG: Lab Results Component Value Date/Time POCPH 7.511 01/22/2025 10:30 AM POCPCO2 27.3 01/22/2025 10:30 AM POCPO2 87.1 01/22/2025 10:30 AM POCHCO3 21.9 01/22/2025 10:30 AM PBEA 0.2 01/22/2025 10:30 AM FKYR7ZIK 97.7 01/22/2025 10:30 AM Lab Results Component Value Date/Time SPECIAL RH 9ML 01/22/2025 12:13 PM Lab Results Component Value Date/Time CULTURE NO GROWTH 2 DAYS 01/22/2025 12:13 PM Radiology: CT CHEST W CONTRAST Result Date: 01/23/2025 1. No evidence of malignancy in the chest. 2. Mild centrilobular emphysema. 3. Coronary artery atherosclerosis. 4. Hepatic steatosis. US LIVER SPLEEN Result Date: 01/22/2025 1. Unremarkable right upper quadrant ultrasound. 2. Normal spleen. XR CHEST PORTABLE Result Date: 01/22/2025 No acute pulmonary findings. Physical Examination: General appearance: alert, cooperative and no distress Mental Status: oriented to person, place and time and normal affect Lungs: clear to auscultation bilaterally, normal effort Heart: regular rate and rhythm, no murmur Abdomen: soft, nontender, nondistended, normal bowel sounds, no masses, hepatomegaly, splenomegaly Extremities: no edema, redness, tenderness in the calves Skin: Purpura noted Assessment: Hospital Problems Last Modified POA * (Principal) Acute idiopathic thrombocytopenic purpura (HCC) 01/24/2025 Yes Rash 01/22/2025 Yes S/P AAA repair 01/23/2025 Yes Plan: Acute idiopathic thrombocytopenic purpura Continue Decadron Await hematology input regarding further dosing of IVIG Abdominal aortic aneurysm Status post EVAR Hyperlipidemia Continue statin Tobacco abuse Smoking cessation Medical Decision Making: Gina Canada DO 01/25/2025 11:50 AM * Robel Mccormack MD - 01/25/2025 8:53 AM EDT Images from the original note were not included. Today's Date: 01/25/2025 Patient Name: Ambrosio Ramírez Date of admission: 01/22/2025 3:32 AM Patient's age: 64 y.o., 1960 Admission Dx: Thrombocytopenia [D69.6] Reason for Consult: management recommendations Requesting Physician: Uzair Wilson MD CHIEF COMPLAINT: Thrombocytopenia. Rash. History Obtained From: patient, electronic medical record Interval Changes: Patient seen and examined at bedside. Chart, labs and vitals reviewed. No acute overnight events Platelet count today 6 with immature platelet fraction 22.8% KIM pending Peripheral blood smear and SPEP in process He received his fourth dose of Decadron this morning Stool for H. pylori not yet collected He denies further bruising HISTORY OF PRESENT ILLNESS: The patient is a 64 y.o. male who is transferred from outside facility to [facility] for higher level of care. Patient initially presented to the [facility] with chief complaint of bleeding from access site in the right groin for his AAA repair. Patient was taking a shower and noticed flecks of blood on the dressing at the exit site. Patient went to the ER for checkup. Lab workup shows platelet count of 4000 patient also noted to have diffuse petechiae including blood-filled blisters in his mouth. Denies any dark bowel movements. Denies any recent illness. Denies abdominal pain. Patient underwent CT abdomen pelvis which showed patent graft and 4.8 cm thrombosed inf rarenal fusiform abdominal aorta with no leak. No abdominal bleeding noted. Patient started on high-dose Decadron 40 mg daily. Patient being closely monitored in the ICU. Lab workup done so far shows negative hepatitis panel. Cultures so far negative H. pylori testing pending. HIT antibody panel pending. Platelet count from this morning was 2. ONOFRE screen pending COVIDtest negative HIV screen negative Past Medical History: Aortic aneurysm Past Surgical History: Aortic aneurysm repair Medications: Prior to Admission medications Not on File Current Facility-Administered Medications Medication Dose Route Frequency Provider Last Rate Last Admin rosuvastatin (CRESTOR) tablet 10 mg 10 mg Oral Nightly Earlene Charles MD 10 mg at 01/24/252018 pantoprazole (PROTONIX) tablet 40 mg 40 mg Oral QAM AC Pérez Carmona MD 40 mg at 01/25/25 0614 sodium chloride flush 0.9 % injection 5-40 mL 5-40 mL IntraVENous 2 times per day Vitor Joseph MD 10 mL at 01/25/25 0813 sodium chloride flush 0.9 % injection 5-40 mL 5-40 mL IntraVENous PRN Vitor Joseph MD 0.9 % sodium chloride infusion IntraVENous PRN Vitor Joseph MD Stopped at 01/23/25 0854 potassium chloride 20 mEq/50 mL IVPB (Central Line) 20 mEq IntraVENous PRN Vitor Joseph MD Or potassium chloride 10 mEq/100 mL IVPB (Peripheral Line) 10 mEq IntraVENous PRN Vitor Joseph MD magnesium sulfate 2000 mg in 50 mL IVPB premix 2,000 mg IntraVENous PRN Vitor Joseph MD ondansetron (ZOFRAN-ODT) disintegrating tablet 4 mg 4 mg Oral Q8H PRN Vitor Joseph MD Or ondansetron (ZOFRAN) injection 4 mg 4 mg IntraVENous Q6H PRN Vitor Joseph MD polyethylene glycol (GLYCOLAX) packet 17 g 17 g Oral Daily PRN Vitor Joseph MD 17 g at 01/23/25 0842 acetaminophen (TYLENOL) tablet 650 mg 650 mg Oral Q6H PRN Vitor Joseph MD Or acetaminophen (TYLENOL) suppository 650 mg 650 mg Rectal Q6H PRN Vitor Joseph MD labetalol (NORMODYNE;TRANDATE) injection 10 mg 10 mg IntraVENous Q4H PRN Milind Corley MD albuterol (PROVENTIL) (2.5 MG/3ML) 0.083% nebulizer solution 2.5 mg 2.5 mg Nebulization Q4H PRN Uzair Wilson MD Allergies: Heparin Social History: reports that he has quit smoking. His smoking use included cigarettes. He started smoking about 34 years ago. He has a 17.1 pack-year smoking history. He has never used smokeless tobacco. He reports that he does not drink alcohol and does not use drugs. Family History: Hypertension REVIEW OF SYSTEMS: Constitutional: No fever or chills. No night sweats, no weight loss Eyes: No eye discharge, double vision, or eye pain HEENT: negative for sore mouth, sore throat, hoarseness and voice change Respiratory: negative for cough , sputum, dyspnea, wheezing, hemoptysis, chest pain Cardiovascular: negative for chest pain, dyspnea, palpitations, orthopnea, PND Gastrointestinal: negative for nausea, vomiting, diarrhea, constipation, abdominal pain, Dysphagia,hematemesis and hematochezia Genitourinary: negative for frequency, dysuria, nocturia, urinary incontinence, and hematuria Integument: negative for rash, skin lesions, bruises. Hematologic/Lymphatic: negative for easy bruising, bleeding, lymphadenopathy, or petechiae Endocrine: negative for heat or cold intolerance,weight changes, change in bowel habits and hair loss Musculoskeletal: negative for myalgias, arthralgias, pain, joint swelling,and bone pain Neurological: negative for headaches, dizziness, seizures, weakness, numbness PHYSICAL EXAM: BP 114/62 Pulse 63 Temp 97.5 ??F (36.4 ??C) (Oral) Resp 14 Ht 1.803 m (5' 11 ) Wt 66 kg (145 lb 9.6 oz) SpO2 100% BMI 20.31 kg/m?? Temp (24hrs), Av.4 ??F (36.3 ??C), Min:97.3 ??F (36.3 ??C), Max:97.6 ??F (36.4 ??C) General appearance - well appearing, no in pain or distress Mental status - alert and cooperative Eyes - pupils equal and reactive, extraocular eye movements intact Mouth - mucous membranes moist, pharynx normal without lesions Neck - supple, no significant adenopathy Lymphatics - no palpable lymphadenopathy, no hepatosplenomegaly Chest - clear to auscultation, no wheezes, rales or rhonchi, symmetric air entry Heart - normal rate, regular rhythm, normal S1, S2, no murmurs Abdomen - soft, nontender, nondistended, no masses or organomegaly Neurological - alert, oriented, normal speech, no focal findings or movement disorder noted Musculoskeletal - no joint tenderness, deformity or swelling Extremities - peripheral pulses normal, no pedal edema, no clubbing or cyanosis Skin - normal coloration and turgor, ++ generalized petechiae and bruising DATA: Labs: Results for orders placed or performed during the hospital encounter of 01/22/25 MRSA DNA Probe, Nasal Specimen: Nasal Result Value Ref Range Specimen Description .NASAL SWAB MRSA, DNA, Nasal NEGATIVE NEGATIVE Culture, Blood 1 Specimen: Blood Result Value Ref Range Specimen Description .BLOOD Special Requests LH 10ML Culture NO GROWTH 2 DAYS Culture, Blood 1 Specimen: Blood Result Value Ref Range Specimen Description .BLOOD Special Requests RH 9ML Culture NO GROWTH 2 DAYS Urinalysis with Reflex to Culture Specimen: Urine, clean catch Result Value Ref Range Color, UA Yellow Yellow Turbidity UA Clear Clear Glucose, Ur NEGATIVE NEGATIVE mg/dL Bilirubin, Urine NEGATIVE NEGATIVE Ketones, Urine NEGATIVE NEGATIVE mg/dL Specific Lena, UA 1.052 (H) 1.005 - 1.030 Urine Hgb MODERATE (A) NEGATIVE pH, Urine 5.5 5.0 - 8.0 Protein, UA NEGATIVE NEGATIVE mg/dL Urobilinogen, Urine Normal 0.0 - 1.0 EU/dL Nitrite, Urine NEGATIVE NEGATIVE Leukocyte Esterase, Urine NEGATIVE NEGATIVE APTT Result Value Ref Range APTT 66.5 (H) 23.0 - 36.5 sec Protime-INR Result Value Ref Range Protime 14.2 11.7 - 14.9 sec INR 1.1 Basic Metabolic Panel w/ Reflex to MG Result Value Ref Range Sodium 136 136 - 145 mmol/L Potassium 3.9 3.7 - 5.3 mmol/L Chloride 101 98 - 107 mmol/L CO2 20 20 - 31 mmol/L Anion Gap 15 9 - 16 mmol/L Glucose 112 (H) 74 - 99 mg/dL BUN 13 8 - 23 mg/dL Creatinine 0.6 (L) 0.7 - 1.2 mg/dL Est, Glom Filt Rate >90 >60 mL/min/1.73m2 Calcium 9.2 8.6 - 10.4 mg/dL CBC with Auto Differential Result Value Ref Range WBC 8.3 3.5 - 11.3 k/uL RBC 4.70 4.21 - 5.77 m/uL Hemoglobin 13.6 13.0 - 17.0 g/dL Hematocrit 40.6 (L) 40.7 - 50.3 % MCV 86.4 82.6 - 102.9 fL MCH 28.9 25.2 - 33.5 pg MCHC 33.5 28.4 - 34.8 g/dL RDW 12.8 11.8 - 14.4 % Platelets See Reflexed IPF Result 138 - 453 k/uL Platelet, Fluorescence <2 (LL) 138 - 453 k/uL Platelet, Immature Fraction 0.0 (L) 1.1 - 10.3 % NRBC Automated 0.0 0.0 per 100 WBC Neutrophils % 68 (H) 36 - 65 % Lymphocytes % 19 (L) 24 - 43 % Monocytes % 11 3 - 12 % Eosinophils % 0 (L) 1 - 4 % Basophils % 0 0 - 2 % Immature Granulocytes % 1 (H) 0 % Neutrophils Absolute 5.63 1.50 - 8.10 k/uL Lymphocytes Absolute 1.60 1.10 - 3.70 k/uL Monocytes Absolute 0.94 0.10 - 1.20 k/uL Eosinophils Absolute <0.03 0.00 - 0.44 k/uL Basophils Absolute 0.03 0.00 - 0.20 k/uL Immature Granulocytes Absolute 0.05 0.00 - 0.30 k/uL Haptoglobin Result Value Ref Range Haptoglobin 381 (H) 30 - 200 mg/dL Lactic Acid Result Value Ref Range Lactic Acid, Whole Blood 1.3 0.7 - 2.1 mmol/L Lactate Dehydrogenase Result Value Ref Range LD 193 135 - 225 U/L Reticulocytes Result Value Ref Range Retic Ct Pct 0.8 0.5 - 1.9 % Absolute Retic # 0.039 0.030 - 0.080 M/uL Immature Retic Fract 17.0 2.7 - 18.3 % Retic Hemoglobin 29.9 28.2 - 35.7 pg Sedimentation Rate Result Value Ref Range Sed Rate, Automated 119 (H) 0 - 20 mm/Hr TSH reflex to FT4 Result Value Ref Range TSH 1.24 0.27 - 4.20 uIU/mL Microscopic Urinalysis Result Value Ref Range WBC, UA None 0 - 5 /HPF RBC, UA 10 TO 20 0 - 4 /HPF Casts UA 0 - 8 /LPF None Reference range defined for non-centrifuged specimen. Epithelial Cells, UA None 0 - 5 /HPF Bacteria, UA None None HIV Screen Result Value Ref Range HIV Ag/Ab NONREACTIVE NONREACTIVE Procalcitonin Result Value Ref Range Procalcitonin 0.06 0.00 - 0.09 ng/mL Fibrinogen Result Value Ref Range Fibrinogen 681 (H) 203 - 521 mg/dL Fibrin Split Products Result Value Ref Range FDP >5 (H) <5 ug/mL CK Result Value Ref Range Total CK 62 39 - 308 U/L C-Reactive Protein Result Value Ref Range CRP 38.0 (H) 0.0 - 5.0 mg/L Hepatic Function Panel Result Value Ref Range Albumin 3.8 3.5 - 5.2 g/dL Alkaline Phosphatase 84 40 - 129 U/L ALT 36 10 - 50 U/L AST 28 10 - 50 U/L Total Bilirubin 0.5 0.0 - 1.2 mg/dL Bilirubin, Direct 0.3 (H) 0.0 - 0.2 mg/dL Bilirubin, Indirect 0.2 0.0 - 1.0 mg/dL Total Protein 8.0 6.6 - 8.7 g/dL Globulin 4.2 g/dL Albumin/Globulin Ratio 0.9 (L) 1.0 - 2.5 Myoglobin, Blood Result Value Ref Range Myoglobin 27 (L) 28 - 72 ng/mL TEG Global Hemostasis with Lysis Result Value Ref Range Reaction Time TEG 14.7 (H) 4.6 - 9.1 min LY30(Lysis) TEG 0.0 0.0 - 2.6 % MA(Max Clot) Rapid TEG <40.0 (L) 52.0 - 70 mm Fibrinogen, Functional TEG 39.8 (H) 15.0 - 32.0 mm Hepatitis Panel, Acute Result Value Ref Range Hepatitis B Surface Ag NONREACTIVE NONREACTIVE Hepatitis C Ab NONREACTIVE NONREACTIVE Hep B Core Ab, IgM NONREACTIVE NONREACTIVE Hep A IgM NONREACTIVE NONREACTIVE Basic Metabolic Panel w/ Reflex to MG Result Value Ref Range Sodium 135 (L) 136 - 145 mmol/L Potassium 3.9 3.7 - 5.3 mmol/L Chloride 101 98 - 107 mmol/L CO2 19 (L) 20 - 31 mmol/L Anion Gap 15 9 - 16 mmol/L Glucose 111 (H) 74 - 99 mg/dL BUN 13 8 - 23 mg/dL Creatinine 0.6 (L) 0.7 - 1.2 mg/dL Est, Glom Filt Rate >90 >60 mL/min/1.73m2 Calcium 9.3 8.6 - 10.4 mg/dL CBC with Auto Differential Result Value Ref Range WBC 7.2 3.5 - 11.3 k/uL RBC 4.67 4.21 - 5.77 m/uL Hemoglobin 13.4 13.0 - 17.0 g/dL Hematocrit 40.9 40.7 - 50.3 % MCV 87.6 82.6 - 102.9 fL MCH 28.7 25.2 - 33.5 pg MCHC 32.8 28.4 - 34.8 g/dL RDW 12.9 11.8 - 14.4 % Platelets See Reflexed IPF Result 138 - 453 k/uL Platelet, Fluorescence 2 (LL) 138 - 453 k/uL Platelet, Immature Fraction 4.8 1.1 - 10.3 % NRBC Automated 0.0 0.0 per 100 WBC Neutrophils % 66 (H) 36 - 65 % Lymphocytes % 22 (L) 24 - 43 % Monocytes % 11 3 - 12 % Eosinophils % 1 1 - 4 % Basophils % 0 0 - 2 % Immature Granulocytes % 0 0 % Neutrophils Absolute 4.73 1.50 - 8.10 k/uL Lymphocytes Absolute 1.57 1.10 - 3.70 k/uL Monocytes Absolute 0.79 0.10 - 1.20 k/uL Eosinophils Absolute 0.04 0.00 - 0.44 k/uL Basophils Absolute 0.03 0.00 - 0.20 k/uL Immature Granulocytes Absolute 0.03 0.00 - 0.30 k/uL Heparin-Induced Platelet Antibody Result Value Ref Range Heparin Induced Plt Ab 1.247 (H) 0.000 - 0.400 O.D. D-Dimer, Quantitative Result Value Ref Range D-Dimer, Quant 2.86 (H) 0.00 - 0.57 ug/mL FEU CBC with Auto Differential Result Value Ref Range WBC 5.1 3.5 - 11.3 k/uL RBC 4.87 4.21 - 5.77 m/uL Hemoglobin 13.9 13.0 - 17.0 g/dL Hematocrit 42.8 40.7 - 50.3 % MCV 87.9 82.6 - 102.9 fL MCH 28.5 25.2 - 33.5 pg MCHC 32.5 28.4 - 34.8 g/dL RDW 13.0 11.8 - 14.4 % Platelets See Reflexed IPF Result 138 - 453 k/uL Platelet, Fluorescence <2 (LL) 138 - 453 k/uL Platelet, Immature Fraction 0.0 (L) 1.1 - 10.3 % NRBC Automated 0.0 0.0 per 100 WBC Neutrophils % 78 (H) 36 - 65 % Lymphocytes % 15 (L) 24 - 43 % Monocytes % 6 3 - 12 % Eosinophils % 0 (L) 1 - 4 % Basophils % 0 0 - 2 % Immature Granulocytes % 1 (H) 0 % Neutrophils Absolute 4.02 1.50 - 8.10 k/uL Lymphocytes Absolute 0.75 (L) 1.10 - 3.70 k/uL Monocytes Absolute 0.33 0.10 - 1.20 k/uL Eosinophils Absolute <0.03 0.00 - 0.44 k/uL Basophils Absolute <0.03 0.00 - 0.20 k/uL Immature Granulocytes Absolute 0.03 0.00 - 0.30 k/uL Basic Metabolic Panel w/ Reflex to MG Result Value Ref Range Sodium 133 (L) 136 - 145 mmol/L Potassium 3.7 3.7 - 5.3 mmol/L Chloride 102 98 - 107 mmol/L CO2 19 (L) 20 - 31 mmol/L Anion Gap 12 9 - 16 mmol/L Glucose 88 74 - 99 mg/dL BUN 20 8 - 23 mg/dL Creatinine 0.6 (L) 0.7 - 1.2 mg/dL Est, Glom Filt Rate >90 >60 mL/min/1.73m2 Calcium 8.7 8.6 - 10.4 mg/dL CBC with Auto Differential Result Value Ref Range WBC 7.5 3.5 - 11.3 k/uL RBC 4.12 (L) 4.21 - 5.77 m/uL Hemoglobin 11.8 (L) 13.0 - 17.0 g/dL Hematocrit 36.1 (L) 40.7 - 50.3 % MCV 87.6 82.6 - 102.9 fL MCH 28.6 25.2 - 33.5 pg MCHC 32.7 28.4 - 34.8 g/dL RDW 12.8 11.8 - 14.4 % Platelets See Reflexed IPF Result 138 - 453 k/uL Platelet, Fluorescence <2 (LL) 138 - 453 k/uL Platelet, Immature Fraction 28.7 (H) 1.1 - 10.3 % NRBC Automated 0.0 0.0 per 100 WBC Neutrophils % 63 36 - 65 % Lymphocytes % 19 (L) 24 - 43 % Monocytes % 17 (H) 3 - 12 % Eosinophils % 0 (L) 1 - 4 % Basophils % 0 0 - 2 % Immature Granulocytes % 1 (H) 0 % Neutrophils Absolute 4.73 1.50 - 8.10 k/uL Lymphocytes Absolute 1.45 1.10 - 3.70 k/uL Monocytes Absolute 1.24 (H) 0.10 - 1.20 k/uL Eosinophils Absolute <0.03 0.00 - 0.44 k/uL Basophils Absolute <0.03 0.00 - 0.20 k/uL Immature Granulocytes Absolute 0.06 0.00 - 0.30 k/uL [id number] ACTIVITY Result Value Ref Range [id number] Activity >100 >=61 % Vitamin B12 & Folate Result Value Ref Range Vitamin B-12 624 232 - 1245 pg/mL Folate 11.7 4.8 - 24.2 ng/mL Electrophoresis Protein, Serum Result Value Ref Range Total Protein 8.3 6.6 - 8.7 g/dL Albumin (calculated) PENDING g/dL Albumin % PENDING % [id number] PENDING g/dL Alpha 1 % PENDING % [id number] PENDING g/dL Alpha 2 % PENDING % Beta Globulin PENDING g/dL Beta Percent PENDING % Gamma Globulin PENDING g/dL Gamma Globulin % PENDING % M Delfino 1, Electrophoresis Protein Serum PENDING g/dL M Delfino 2, Immunofixation Serum PENDING g/dL Total Prot. Sum PENDING g/dL Total Prot. Sum,% PENDING % Protein Electrophoresis, Serum PENDING Pathologist PENDING Cytomegalovirus Ab,IGG,IGM Result Value Ref Range CMV IgG 744.0 (H) <0.5 CMV IgM 0.2 <0.7 CBC with Auto Differential Result Value Ref Range WBC 6.2 3.5 - 11.3 k/uL RBC 3.78 (L) 4.21 - 5.77 m/uL Hemoglobin 10.9 (L) 13.0 - 17.0 g/dL Hematocrit 33.6 (L) 40.7 - 50.3 % MCV 88.9 82.6 - 102.9 fL MCH 28.8 25.2 - 33.5 pg MCHC 32.4 28.4 - 34.8 g/dL RDW 13.1 11.8 - 14.4 % Platelets See Reflexed IPF Result 138 - 453 k/uL Platelet, Fluorescence 3 (LL) 138 - 453 k/uL Platelet, Immature Fraction 48.4 (H) 1.1 - 10.3 % NRBC Automated 0.0 0.0 per 100 WBC Neutrophils % 83 (H) 36 - 65 % Lymphocytes % 12 (L) 24 - 43 % Monocytes % 4 3 - 12 % Eosinophils % 0 (L) 1 - 4 % Basophils % 0 0 - 2 % Immature Granulocytes % 1 (H) 0 % Neutrophils Absolute 5.15 1.50 - 8.10 k/uL Lymphocytes Absolute 0.76 (L) 1.10 - 3.70 k/uL Monocytes Absolute 0.22 0.10 - 1.20 k/uL Eosinophils Absolute <0.03 0.00 - 0.44 k/uL Basophils Absolute <0.03 0.00 - 0.20 k/uL Immature Granulocytes Absolute 0.03 0.00 - 0.30 k/uL Basic Metabolic Panel w/ Reflex to MG Result Value Ref Range Sodium 133 (L) 136 - 145 mmol/L Potassium 4.2 3.7 - 5.3 mmol/L Chloride 104 98 - 107 mmol/L CO2 20 20 - 31 mmol/L Anion Gap 9 9 - 16 mmol/L Glucose 97 74 - 99 mg/dL BUN 21 8 - 23 mg/dL Creatinine 0.5 (L) 0.7 - 1.2 mg/dL Est, Glom Filt Rate >90 >60 mL/min/1.73m2 Calcium 8.6 8.6 - 10.4 mg/dL CBC with Auto Differential Result Value Ref Range WBC 8.6 3.5 - 11.3 k/uL RBC 3.83 (L) 4.21 - 5.77 m/uL Hemoglobin 10.8 (L) 13.0 - 17.0 g/dL Hematocrit 34.8 (L) 40.7 - 50.3 % MCV 90.9 82.6 - 102.9 fL MCH 28.2 25.2 - 33.5 pg MCHC 31.0 28.4 - 34.8 g/dL RDW 13.0 11.8 - 14.4 % Platelets See Reflexed IPF Result 138 - 453 k/uL Platelet, Fluorescence 6 (LL) 138 - 453 k/uL Platelet, Immature Fraction 25.9 (H) 1.1 - 10.3 % NRBC Automated 0.0 0.0 per 100 WBC Neutrophils % 70 (H) 36 - 65 % Lymphocytes % 21 (L) 24 - 43 % Monocytes % 8 3 - 12 % Eosinophils % 0 (L) 1 - 4 % Basophils % 0 0 - 2 % Immature Granulocytes % 1 (H) 0 % Neutrophils Absolute 6.03 1.50 - 8.10 k/uL Lymphocytes Absolute 1.79 1.10 - 3.70 k/uL Monocytes Absolute 0.72 0.10 - 1.20 k/uL Eosinophils Absolute <0.03 0.00 - 0.44 k/uL Basophils Absolute 0.03 0.00 - 0.20 k/uL Immature Granulocytes Absolute 0.05 0.00 - 0.30 k/uL Hepatic Function Panel Result Value Ref Range Albumin 3.1 (L) 3.5 - 5.2 g/dL Alkaline Phosphatase 61 40 - 129 U/L ALT 28 10 - 50 U/L AST 24 10 - 50 U/L Total Bilirubin 0.6 0.0 - 1.2 mg/dL Bilirubin, Direct 0.1 0.0 - 0.2 mg/dL Bilirubin, Indirect 0.5 0.0 - 1.0 mg/dL Total Protein 9.5 (H) 6.6 - 8.7 g/dL Globulin 6.4 g/dL Albumin/Globulin Ratio 0.5 (L) 1.0 - 2.5 CBC with Auto Differential Result Value Ref Range WBC 6.3 3.5 - 11.3 k/uL RBC 3.72 (L) 4.21 - 5.77 m/uL Hemoglobin 10.7 (L) 13.0 - 17.0 g/dL Hematocrit 33.1 (L) 40.7 - 50.3 % MCV 89.0 82.6 - 102.9 fL MCH 28.8 25.2 - 33.5 pg MCHC 32.3 28.4 - 34.8 g/dL RDW 12.9 11.8 - 14.4 % Platelets See Reflexed IPF Result 138 - 453 k/uL Platelet, Fluorescence 8 (LL) 138 - 453 k/uL Platelet, Immature Fraction 30.2 (H) 1.1 - 10.3 % NRBC Automated 0.0 0.0 per 100 WBC Neutrophils % 85 (H) 36 - 65 % Lymphocytes % 12 (L) 24 - 43 % Monocytes % 2 (L) 3 - 12 % Eosinophils % 0 (L) 1 - 4 % Basophils % 0 0 - 2 % Immature Granulocytes % 1 (H) 0 % Neutrophils Absolute 5.39 1.50 - 8.10 k/uL Lymphocytes Absolute 0.78 (L) 1.10 - 3.70 k/uL Monocytes Absolute 0.11 0.10 - 1.20 k/uL Eosinophils Absolute <0.03 0.00 - 0.44 k/uL Basophils Absolute <0.03 0.00 - 0.20 k/uL Immature Granulocytes Absolute 0.03 0.00 - 0.30 k/uL Basic Metabolic Panel w/ Reflex to MG Result Value Ref Range Sodium 134 (L) 136 - 145 mmol/L Potassium 4.0 3.7 - 5.3 mmol/L Chloride 101 98 - 107 mmol/L CO2 22 20 - 31 mmol/L Anion Gap 11 9 - 16 mmol/L Glucose 87 74 - 99 mg/dL BUN 16 8 - 23 mg/dL Creatinine 0.7 0.7 - 1.2 mg/dL Est, Glom Filt Rate >90 >60 mL/min/1.73m2 Calcium 8.7 8.6 - 10.4 mg/dL CBC with Auto Differential Result Value Ref Range WBC 9.5 3.5 - 11.3 k/uL RBC 3.63 (L) 4.21 - 5.77 m/uL Hemoglobin 10.4 (L) 13.0 - 17.0 g/dL Hematocrit 32.2 (L) 40.7 - 50.3 % MCV 88.7 82.6 - 102.9 fL MCH 28.7 25.2 - 33.5 pg MCHC 32.3 28.4 - 34.8 g/dL RDW 13.1 11.8 - 14.4 % Platelets See Reflexed IPF Result 138 - 453 k/uL Platelet, Fluorescence 6 (LL) 138 - 453 k/uL Platelet, Immature Fraction 22.8 (H) 1.1 - 10.3 % NRBC Automated 0.0 0.0 per 100 WBC Neutrophils % 62 36 - 65 % Lymphocytes % 28 24 - 43 % Monocytes % 10 3 - 12 % Eosinophils % 0 (L) 1 - 4 % Basophils % 0 0 - 2 % Immature Granulocytes % 1 (H) 0 % Neutrophils Absolute 5.85 1.50 - 8.10 k/uL Lymphocytes Absolute 2.62 1.10 - 3.70 k/uL Monocytes Absolute 0.91 0.10 - 1.20 k/uL Eosinophils Absolute <0.03 0.00 - 0.44 k/uL Basophils Absolute 0.03 0.00 - 0.20 k/uL Immature Granulocytes Absolute 0.05 0.00 - 0.30 k/uL Arterial Blood Gas, POC Result Value Ref Range POC pH 7.511 (H) 7.350 - 7.450 POC pCO2 27.3 (L) 35.0 - 48.0 mm Hg POC PO2 87.1 83.0 - 108.0 mm Hg POC HCO3 21.9 21.0 - 28.0 mmol/L Positive Base Excess, Art 0.2 0.0 - 3.0 mmol/L POC O2 SAT 97.7 94.0 - 98.0 % O2 Delivery Device Room Air Jone Test POSITIVE Sample Site Right Radial Artery POCT Glucose Result Value Ref Range POC Glucose 126 (H) 74 - 100 mg/dL DIRECT ANTIGLOBULIN TEST Result Value Ref Range FELIPE, Polyspecific NEGATIVE IMAGING DATA: CT CHEST W CONTRAST Result Date: 01/23/2025 EXAMINATION: CT OF THE CHEST WITH CONTRAST 01/22/2025 7:55 pm TECHNIQUE: CT of the chest was performed with the administration of intravenous contrast. Multiplanar reformatted images are provided for review. Automated exposure control, iterative reconstruction, and/or weight based adjustment of the mA/kV was utilized to reduce the radiation dose to as low as reasonably achievable. COMPARISON: Correlation is made to chest radiograph dated January 22, 2025. No similar exam for comparison. HISTORY: ORDERING SYSTEM PROVIDED HISTORY: itp evalaute for malignancy TECHNOLOGIST PROVIDED HISTORY: itp evalaute for malignancy FINDINGS: Mediastinum: Thoracic aorta is atherosclerotic. Coronary artery atherosclerosis. Thoracic aorta and central portion of the pulmonary artery opacify normally. The ascending thoracic aorta is of normal caliber. Heart size is normal. There is no pericardial effusion. No evidence of hilar adenopathy. Enlarged subcarinal node measures 1.4 cm in the short axis dimension. There are coarsely calcified subcarinal and right hilar nodes. Lungs/pleura: Mild centrilobular emphysema. There are calcified granulomas in the right lung. Bandlike opacity in the left lower lobe is probably scarring or atelectasis. Central tracheobronchial airways are unremarkable. No bronchiectasis or bronchial wall thickening. No focal consolidation, pleural effusion, or pneumothorax. Symmetric bilateral apical scarring. Upper Abdomen: Hyperdense material layers in the dependent portion of the gallbladder lumen. Differential includes excreted contrast from prior CT of the abdomen and pelvis dated January 21, 2025, small stones, and sludge. Multiple hypodensities in the liver are probably cysts. Hepatic steatosis. No acute abnormality in the upper abdomen. Soft Tissues/Bones: No aggressive lytic or blastic bony lesion. 1. No evidence of malignancy in the chest. 2. Mild centrilobular emphysema. 3. Coronary artery atherosclerosis. 4. Hepatic steatosis. US LIVER SPLEEN Result Date: 01/22/2025 EXAMINATION: RIGHT UPPER QUADRANT ULTRASOUND 01/22/2025 8:30 pm COMPARISON: January 21, 2025 HISTORY: ORDERING SYSTEM PROVIDED HISTORY: Acute onset thrombocytopenia. Rule out hepatosplenomegaly TECHNOLOGIST PROVIDED HISTORY: Acute onset thrombocytopenia. Rule out hepatosplenomegaly FINDINGS: LIVER: The l iver demonstrates normal echogenicity without evidence of intrahepatic biliary ductal dilatation. Benign cysts measure up to 12 mm. BILIARY SYSTEM: Gallbladder is unremarkable without evidence of pericholecystic fluid, wall thickening or stones. Negative sonographic Tate's sign. Common bile duct is within normal limits measuring 4 mm. RIGHT KIDNEY: The right kidney is grossly unremarkable without evidence of hydronephrosis. The right kidney measures 11.1 cm in length. PANCREAS: Visualized portions of the pancreas are unremarkable. OTHER: No evidence of right upper quadrant ascites. The spleen is normal in size, measuring 9.2 cm. 1. Unremarkable right upper quadrant ultrasound. 2. Normal spleen. XR CHEST PORTABLE Result Date: 01/22/2025 EXAMINATION: ONE XRAY VIEW OF THE CHEST 01/22/2025 10:57 am COMPARISON: None. HISTORY: ORDERING SYSTEM PROVIDED HISTORY: To look for pnemonia TECHNOLOGIST PROVIDED HISTORY: To look for pnemonia FINDINGS: Lungs: Clear. Pleura: No effusion or pneumothorax. Cardiomediastinal silhouette: Normal contours. Bones: No acute bony findings. Soft tissues: Normal. No acute pulmonary findings. IMPRESSION: Primary Problem Acute idiopathic thrombocytopenic purpura (HCC) Active Hospital Problems Diagnosis Date Noted S/P AAA repair [Z98.890, Z86.79] 01/23/2025 Acute idiopathic thrombocytopenic purpura (HCC) [D69.3] 01/22/2025 Rash [R21] 01/22/2025 Acute severe thrombocytopenia Recent AAA repair Petechial rash Blisters RECOMMENDATIONS: I reviewed the labs/imaging available to me,outside records and discussed with the patient.I explained to the patient the nature of this problem. I explained the significance of these abnormalities and possible etiology and management optionsFollow-up on peripheral smear however given isolated thrombocytopenia ITP is high in the differential. 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 Mcocrmack With patient's such severe thrombocytopenia, I still suspect primary or secondary ITP as HIT typically does not lead to undetectable platelet counts Check H. pylori stool antigen test, has been ordered specimen needs to be collected Patient not a candidate for any anticoagulation Transfuse platelets only if patient is bleeding Fall precautions He is at an increased risk of bleeding as well as spontaneous brain bleeds with platelet count lessthan 10,000 Continue to monitor platelet count closely. We will continue to follow Final recommendations to follow after discussing with attending physician, Dr. Mccormack Discussed with patient and Nurse. Thank you for asking us to see this patient. YANCY Samuels CNP [facility] Hematology/Oncology 01/25/2025 I have discussed the care of this patient and I have personally examined the patient myselft and taken ros and hpi , including pertinent history and exam findings, labs, imaging , medication ad otherrelavent clincal data. I have reviewed the elliott elements of all parts of the encounter with the Nurse Practitioner . I agree with the assessment, plan and orders as documented by the SENIOR APPLICATION SOFTWARE ENGINEER with the following addendum More than 50% of the time was spent taking care of this patient in addition to the nurse practitioner time. That also included history taking follow-up physical examination and review of system. Peripheral smear shows marked thrombocytopenia no blasts noted Platelet count 6. Immature platelet fraction 22% Will give third dose of Gammagard today. Patient received fourth dose of Decadron Remains at risk of spontaneous bleeding Robel Mccormack M.D. This note is created with the assistance of a speech recognition program. While intending to generate a document that actually reflects the content of the visit, the document can still have some errors including those of syntax and sound a like substitutions which may escape proof reading. It such instances, actual meaning can be extrapolated by contextual diversion. * Mely Reese RN - 01/24/2025 4:23 PM EDT Hog Feeder called and provided report to ROSALIE Leon at this time on 4C. * Mely Reese RN - 01/24/2025 3:41 PM EDT Platelets level critical of 8. Insulation Batting Machine Operator notified okay with patient transferring out of ICU. Must be on fall precautions. * Robel Mccormack MD - 01/24/2025 2:57 PM EDT Images from the original note were not included. Today's Date: 01/24/2025 Patient Name: Ambrosio Ramírez Date of admission: 01/22/2025 3:32 AM Patient's age: 64 y.o., 1960 Admission Dx: Thrombocytopenia [D69.6] Reason for Consult: management recommendations Requesting Physician: Uzair Wilson MD CHIEF COMPLAINT: Thrombocytopenia. Rash. History Obtained From: patient, electronic medical record Interval history: Patient seen and examined Labs and vitals reviewed Platelet count improved to 6 No new complaint interval event Denies noticing any large bruise Patient to receive day #3 of Decadron today Immature platelet fraction 25% HISTORY OF PRESENT ILLNESS: The patient is a 64 y.o. male who is transferred from outside facility to [facility] for higher level of care. Patient initially presented to the [facility] with chief complaint of bleeding from access site in the right groin for his AAA repair. Patient was taking a shower and noticed flecks of blood on the dressing at the exit site. Patient went to the ER for checkup. Lab workup shows platelet count of 4000 patient also noted to have diffuse petechiae including blood-filled blisters in his mouth. Denies any dark bowel movements. Denies any recent illness. Denies abdominal pain. Patient underwent CT abdomen pelvis which showed patent graft and 4.8 cm thrombosed inf rarenal fusiform abdominal aorta with no leak. No abdominal bleeding noted. Patient started on high-dose Decadron 40 mg daily. Patient being closely monitored in the ICU. Lab workup done so far shows negative otitis panel. Cultures so far negative H. pylori testing pending. HIT antibody panel pending. Platelet count from this morning was 2. ONOFRE screen pending COVID test negative HIV screen negative Past Medical History: Aortic aneurysm Past Surgical History: Aortic aneurysm repair Medications: Prior to Admission medications Not on File Current Facility-Administered Medications Medication Dose Route Frequency Provider Last Rate Last Admin rosuvastatin (CRESTOR) tablet 10 mg 10 mg Oral Nightly Earlene Charles MD lactulose (CHRONULAC) 10 GM/15ML solution 20 g 20 g Oral Once RattaPérez Deras MD pantoprazole (PROTONIX) tablet 40 mg 40 mg Oral QAM AC Pérez Carmona MD 40 mg at 01/24/25 0815 sennosides-docusate sodium (SENOKOT-S) 8.6-50 MG tablet 2 tablet 2 tablet Oral Daily Pérez Carmona MD 2 tablet at 01/24/25 0815 sodium chloride flush 0.9 % injection 5-40 mL 5-40 mL IntraVENous 2 times per day Vitor Joseph MD 10 mL at 01/24/25 0815 sodium chloride flush 0.9 % injection 5-40 mL 5-40 mL IntraVENous PRN Vitor Joseph MD 0.9 % sodium chloride infusion IntraVENous PRN Vitor Joseph MD Stopped at 01/23/25 0854 potassium chloride 20 mEq/50 mL IVPB (Central Line) 20 mEq IntraVENous PRN Vitor Joseph MD Or potassium chloride 10 mEq/100 mL IVPB (Peripheral Line) 10 mEq IntraVENous PRN Vitor Joseph MD magnesium sulfate 2000 mg in 50 mL IVPB premix 2,000 mg IntraVENous PRN Vitor Joseph MD ondansetron (ZOFRAN-ODT) disintegrating tablet 4 mg 4 mg Oral Q8H PRN Vitor Joseph MD Or ondansetron (ZOFRAN) injection 4 mg 4 mg IntraVENous Q6H PRN Vitor Joseph MD polyethylene glycol (GLYCOLAX) packet 17 g 17 g Oral Daily PRN Vitor Joseph MD 17 g at 01/23/25 0842 acetaminophen (TYLENOL) tablet 650 mg 650 mg Oral Q6H PRN Vitor Joseph MD Or acetaminophen (TYLENOL) suppository 650 mg 650 mg Rectal Q6H PRN Vitor Joseph MD labetalol (NORMODYNE;TRANDATE) injection 10 mg 10 mg IntraVENous Q4H PRN Milind Corley MD albuterol (PROVENTIL) (2.5 MG/3ML) 0.083% nebulizer solution 2.5 mg 2.5 mg Nebulization Q4H PRN Uzari Wilson MD dexAMETHasone (DECADRON) 40 mg in sodium chloride 0.9 % 50 mL IVPB 40 mg IntraVENous Q24H Milind Corley MD Stopped at 01/24/25 0832 Allergies: Heparin Social History: reports that he has quit smoking. His smoking use included cigarettes. He started smoking about 34 years ago. He has a 17.1 pack-year smoking history. He has never used smokeless tobacco. He reports that he does not drink alcohol and does not use drugs. Family History: Hypertension REVIEW OF SYSTEMS: Constitutional: No fever or chills. No night sweats, no weight loss Eyes: No eye discharge, double vision, or eye pain HEENT: negative for sore mouth, sore throat, hoarseness and voice change Respiratory: negative for cough , sputum, dyspnea, wheezing, hemoptysis, chest pain Cardiovascular: negative for chest pain, dyspnea, palpitations, orthopnea, PND Gastrointestinal: negative for nausea, vomiting, diarrhea, constipation, abdominal pain, Dysphagia,hematemesis and hematochezia Genitourinary: negative for frequency, dysuria, nocturia, urinary incontinence, and hematuria Integument: negative for rash, skin lesions, bruises. Hematologic/Lymphatic: negative for easy bruising, bleeding, lymphadenopathy, or petechiae Endocrine: negative for heat or cold intolerance,weight changes, change in bowel habits and hair loss Musculoskeletal: negative for myalgias, arthralgias, pain, joint swelling,and bone pain Neurological: negative for headaches, dizziness, seizures, weakness, numbness PHYSICAL EXAM: BP (!) 116/57 Pulse 64 Temp 97.6 ??F (36.4 ??C) (Oral) Resp 17 Ht 1.803 m (5' 11 ) Wt 66 kg (145 lb 9.6 oz) SpO2 99% BMI 20.31 kg/m?? Temp (24hrs), Av.8 ??F (36.6 ??C), Min:97.5 ??F (36.4 ??C), Max:98.2 ??F (36.8 ??C) General appearance - well appearing, no in pain or distress Mental status - alert and cooperative Eyes - pupils equal and reactive, extraocular eye movements intact Ears - bilateral TM's and external ear canals normal Mouth - mucous membranes moist, pharynx normal without lesions Neck - supple, no significant adenopathy Lymphatics - no palpable lymphadenopathy, no hepatosplenomegaly Chest - clear to auscultation, no wheezes, rales or rhonchi, symmetric air entry Heart - normal rate, regular rhythm, normal S1, S2, no murmurs Abdomen - soft, nontender, nondistended, no masses or organomegaly Neurological - alert, oriented, normal speech, no focal findings or movement disorder noted Musculoskeletal - no joint tenderness, deformity or swelling Extremities - peripheral pulses normal, no pedal edema, no clubbing or cyanosis Skin - normal coloration and turgor, no rashes, no suspicious skin lesions noted , DATA: Labs: Results for orders placed or performed during the hospital encounter of 01/22/25 MRSA DNA Probe, Nasal Specimen: Nasal Result Value Ref Range Specimen Description .NASAL SWAB MRSA, DNA, Nasal NEGATIVE NEGATIVE Culture, Blood 1 Specimen: Blood Result Value Ref Range Specimen Description .BLOOD Special Requests LH 10ML Culture NO GROWTH 2 DAYS Culture, Blood 1 Specimen: Blood Result Value Ref Range Specimen Description .BLOOD Special Requests RH 9ML Culture NO GROWTH 2 DAYS Urinalysis with Reflex to Culture Specimen: Urine, clean catch Result Value Ref Range Color, UA Yellow Yellow Turbidity UA Clear Clear Glucose, Ur NEGATIVE NEGATIVE mg/dL Bilirubin, Urine NEGATIVE NEGATIVE Ketones, Urine NEGATIVE NEGATIVE mg/dL Specific Lena, UA 1.052 (H) 1.005 - 1.030 Urine Hgb MODERATE (A) NEGATIVE pH, Urine 5.5 5.0 - 8.0 Protein, UA NEGATIVE NEGATIVE mg/dL Urobilinogen, Urine Normal 0.0 - 1.0 EU/dL Nitrite, Urine NEGATIVE NEGATIVE Leukocyte Esterase, Urine NEGATIVE NEGATIVE APTT Result Value Ref Range APTT 66.5 (H) 23.0 - 36.5 sec Protime-INR Result Value Ref Range Protime 14.2 11.7 - 14.9 sec INR 1.1 Basic Metabolic Panel w/ Reflex to MG Result Value Ref Range Sodium 136 136 - 145 mmol/L Potassium 3.9 3.7 - 5.3 mmol/L Chloride 101 98 - 107 mmol/L CO2 20 20 - 31 mmol/L Anion Gap 15 9 - 16 mmol/L Glucose 112 (H) 74 - 99 mg/dL BUN 13 8 - 23 mg/dL Creatinine 0.6 (L) 0.7 - 1.2 mg/dL Est, Glom Filt Rate >90 >60 mL/min/1.73m2 Calcium 9.2 8.6 - 10.4 mg/dL CBC with Auto Differential Result Value Ref Range WBC 8.3 3.5 - 11.3 k/uL RBC 4.70 4.21 - 5.77 m/uL Hemoglobin 13.6 13.0 - 17.0 g/dL Hematocrit 40.6 (L) 40.7 - 50.3 % MCV 86.4 82.6 - 102.9 fL MCH 28.9 25.2 - 33.5 pg MCHC 33.5 28.4 - 34.8 g/dL RDW 12.8 11.8 - 14.4 % Platelets See Reflexed IPF Result 138 - 453 k/uL Platelet, Fluorescence <2 (LL) 138 - 453 k/uL Platelet, Immature Fraction 0.0 (L) 1.1 - 10.3 % NRBC Automated 0.0 0.0 per 100 WBC Neutrophils % 68 (H) 36 - 65 % Lymphocytes % 19 (L) 24 - 43 % Monocytes % 11 3 - 12 % Eosinophils % 0 (L) 1 - 4 % Basophils % 0 0 - 2 % Immature Granulocytes % 1 (H) 0 % Neutrophils Absolute 5.63 1.50 - 8.10 k/uL Lymphocytes Absolute 1.60 1.10 - 3.70 k/uL Monocytes Absolute 0.94 0.10 - 1.20 k/uL Eosinophils Absolute <0.03 0.00 - 0.44 k/uL Basophils Absolute 0.03 0.00 - 0.20 k/uL Immature Granulocytes Absolute 0.05 0.00 - 0.30 k/uL Haptoglobin Result Value Ref Range Haptoglobin 381 (H) 30 - 200 mg/dL Lactic Acid Result Value Ref Range Lactic Acid, Whole Blood 1.3 0.7 - 2.1 mmol/L Lactate Dehydrogenase Result Value Ref Range LD 193 135 - 225 U/L Reticulocytes Result Value Ref Range Retic Ct Pct 0.8 0.5 - 1.9 % Absolute Retic # 0.039 0.030 - 0.080 M/uL Immature Retic Fract 17.0 2.7 - 18.3 % Retic Hemoglobin 29.9 28.2 - 35.7 pg Sedimentation Rate Result Value Ref Range Sed Rate, Automated 119 (H) 0 - 20 mm/Hr TSH reflex to FT4 Result Value Ref Range TSH 1.24 0.27 - 4.20 uIU/mL Microscopic Urinalysis Result Value Ref Range WBC, UA None 0 - 5 /HPF RBC, UA 10 TO 20 0 - 4 /HPF Casts UA 0 - 8 /LPF None Reference range defined for non-centrifuged specimen. Epithelial Cells, UA None 0 - 5 /HPF Bacteria, UA None None HIV Screen Result Value Ref Range HIV Ag/Ab NONREACTIVE NONREACTIVE Procalcitonin Result Value Ref Range Procalcitonin 0.06 0.00 - 0.09 ng/mL Fibrinogen Result Value Ref Range Fibrinogen 681 (H) 203 - 521 mg/dL Fibrin Split Products Result Value Ref Range FDP >5 (H) <5 ug/mL CK Result Value Ref Range Total CK 62 39 - 308 U/L C-Reactive Protein Result Value Ref Range CRP 38.0 (H) 0.0 - 5.0 mg/L Hepatic Function Panel Result Value Ref Range Albumin 3.8 3.5 - 5.2 g/dL Alkaline Phosphatase 84 40 - 129 U/L ALT 36 10 - 50 U/L AST 28 10 - 50 U/L Total Bilirubin 0.5 0.0 - 1.2 mg/dL Bilirubin, Direct 0.3 (H) 0.0 - 0.2 mg/dL Bilirubin, Indirect 0.2 0.0 - 1.0 mg/dL Total Protein 8.0 6.6 - 8.7 g/dL Globulin 4.2 g/dL Albumin/Globulin Ratio 0.9 (L) 1.0 - 2.5 Myoglobin, Blood Result Value Ref Range Myoglobin 27 (L) 28 - 72 ng/mL TEG Global Hemostasis with Lysis Result Value Ref Range Reaction Time TEG 14.7 (H) 4.6 - 9.1 min LY30(Lysis) TEG 0.0 0.0 - 2.6 % MA(Max Clot) Rapid TEG <40.0 (L) 52.0 - 70 mm Fibrinogen, Functional TEG 39.8 (H) 15.0 - 32.0 mm Hepatitis Panel, Acute Result Value Ref Range Hepatitis B Surface Ag NONREACTIVE NONREACTIVE Hepatitis C Ab NONREACTIVE NONREACTIVE Hep B Core Ab, IgM NONREACTIVE NONREACTIVE Hep A IgM NONREACTIVE NONREACTIVE Basic Metabolic Panel w/ Reflex to MG Result Value Ref Range Sodium 135 (L) 136 - 145 mmol/L Potassium 3.9 3.7 - 5.3 mmol/L Chloride 101 98 - 107 mmol/L CO2 19 (L) 20 - 31 mmol/L Anion Gap 15 9 - 16 mmol/L Glucose 111 (H) 74 - 99 mg/dL BUN 13 8 - 23 mg/dL Creatinine 0.6 (L) 0.7 - 1.2 mg/dL Est, Glom Filt Rate >90 >60 mL/min/1.73m2 Calcium 9.3 8.6 - 10.4 mg/dL CBC with Auto Differential Result Value Ref Range WBC 7.2 3.5 - 11.3 k/uL RBC 4.67 4.21 - 5.77 m/uL Hemoglobin 13.4 13.0 - 17.0 g/dL Hematocrit 40.9 40.7 - 50.3 % MCV 87.6 82.6 - 102.9 fL MCH 28.7 25.2 - 33.5 pg MCHC 32.8 28.4 - 34.8 g/dL RDW 12.9 11.8 - 14.4 % Platelets See Reflexed IPF Result 138 - 453 k/uL Platelet, Fluorescence 2 (LL) 138 - 453 k/uL Platelet, Immature Fraction 4.8 1.1 - 10.3 % NRBC Automated 0.0 0.0 per 100 WBC Neutrophils % 66 (H) 36 - 65 % Lymphocytes % 22 (L) 24 - 43 % Monocytes % 11 3 - 12 % Eosinophils % 1 1 - 4 % Basophils % 0 0 - 2 % Immature Granulocytes % 0 0 % Neutrophils Absolute 4.73 1.50 - 8.10 k/uL Lymphocytes Absolute 1.57 1.10 - 3.70 k/uL Monocytes Absolute 0.79 0.10 - 1.20 k/uL Eosinophils Absolute 0.04 0.00 - 0.44 k/uL Basophils Absolute 0.03 0.00 - 0.20 k/uL Immature Granulocytes Absolute 0.03 0.00 - 0.30 k/uL Heparin-Induced Platelet Antibody Result Value Ref Range Heparin Induced Plt Ab 1.247 (H) 0.000 - 0.400 O.D. D-Dimer, Quantitative Result Value Ref Range D-Dimer, Quant 2.86 (H) 0.00 - 0.57 ug/mL FEU CBC with Auto Differential Result Value Ref Range WBC 5.1 3.5 - 11.3 k/uL RBC 4.87 4.21 - 5.77 m/uL Hemoglobin 13.9 13.0 - 17.0 g/dL Hematocrit 42.8 40.7 - 50.3 % MCV 87.9 82.6 - 102.9 fL MCH 28.5 25.2 - 33.5 pg MCHC 32.5 28.4 - 34.8 g/dL RDW 13.0 11.8 - 14.4 % Platelets See Reflexed IPF Result 138 - 453 k/uL Platelet, Fluorescence <2 (LL) 138 - 453 k/uL Platelet, Immature Fraction 0.0 (L) 1.1 - 10.3 % NRBC Automated 0.0 0.0 per 100 WBC Neutrophils % 78 (H) 36 - 65 % Lymphocytes % 15 (L) 24 - 43 % Monocytes % 6 3 - 12 % Eosinophils % 0 (L) 1 - 4 % Basophils % 0 0 - 2 % Immature Granulocytes % 1 (H) 0 % Neutrophils Absolute 4.02 1.50 - 8.10 k/uL Lymphocytes Absolute 0.75 (L) 1.10 - 3.70 k/uL Monocytes Absolute 0.33 0.10 - 1.20 k/uL Eosinophils Absolute <0.03 0.00 - 0.44 k/uL Basophils Absolute <0.03 0.00 - 0.20 k/uL Immature Granulocytes Absolute 0.03 0.00 - 0.30 k/uL Basic Metabolic Panel w/ Reflex to MG Result Value Ref Range Sodium 133 (L) 136 - 145 mmol/L Potassium 3.7 3.7 - 5.3 mmol/L Chloride 102 98 - 107 mmol/L CO2 19 (L) 20 - 31 mmol/L Anion Gap 12 9 - 16 mmol/L Glucose 88 74 - 99 mg/dL BUN 20 8 - 23 mg/dL Creatinine 0.6 (L) 0.7 - 1.2 mg/dL Est, Glom Filt Rate >90 >60 mL/min/1.73m2 Calcium 8.7 8.6 - 10.4 mg/dL CBC with Auto Differential Result Value Ref Range WBC 7.5 3.5 - 11.3 k/uL RBC 4.12 (L) 4.21 - 5.77 m/uL Hemoglobin 11.8 (L) 13.0 - 17.0 g/dL Hematocrit 36.1 (L) 40.7 - 50.3 % MCV 87.6 82.6 - 102.9 fL MCH 28.6 25.2 - 33.5 pg MCHC 32.7 28.4 - 34.8 g/dL RDW 12.8 11.8 - 14.4 % Platelets See Reflexed IPF Result 138 - 453 k/uL Platelet, Fluorescence <2 (LL) 138 - 453 k/uL Platelet, Immature Fraction 28.7 (H) 1.1 - 10.3 % NRBC Automated 0.0 0.0 per 100 WBC Neutrophils % 63 36 - 65 % Lymphocytes % 19 (L) 24 - 43 % Monocytes % 17 (H) 3 - 12 % Eosinophils % 0 (L) 1 - 4 % Basophils % 0 0 - 2 % Immature Granulocytes % 1 (H) 0 % Neutrophils Absolute 4.73 1.50 - 8.10 k/uL Lymphocytes Absolute 1.45 1.10 - 3.70 k/uL Monocytes Absolute 1.24 (H) 0.10 - 1.20 k/uL Eosinophils Absolute <0.03 0.00 - 0.44 k/uL Basophils Absolute <0.03 0.00 - 0.20 k/uL Immature Granulocytes Absolute 0.06 0.00 - 0.30 k/uL Vitamin B12 & Folate Result Value Ref Range Vitamin B-12 624 232 - 1245 pg/mL Folate 11.7 4.8 - 24.2 ng/mL Electrophoresis Protein, Serum Result Value Ref Range Total Protein 8.3 6.6 - 8.7 g/dL Albumin (calculated) PENDING g/dL Albumin % PENDING % [id number] PENDING g/dL Alpha 1 % PENDING % [id number] PENDING g/dL Alpha 2 % PENDING % Beta Globulin PENDING g/dL Beta Percent PENDING % Gamma Globulin PENDING g/dL Gamma Globulin % PENDING % M Delfino 1, Electrophoresis Protein Serum PENDING g/dL M Delfino 2, Immunofixation Serum PENDING g/dL Total Prot. Sum PENDING g/dL Total Prot. Sum,% PENDING % Protein Electrophoresis, Serum PENDING Pathologist PENDING Cytomegalovirus Ab,IGG,IGM Result Value Ref Range CMV IgG 744.0 (H) <0.5 CMV IgM 0.2 <0.7 CBC with Auto Differential Result Value Ref Range WBC 6.2 3.5 - 11.3 k/uL RBC 3.78 (L) 4.21 - 5.77 m/uL Hemoglobin 10.9 (L) 13.0 - 17.0 g/dL Hematocrit 33.6 (L) 40.7 - 50.3 % MCV 88.9 82.6 - 102.9 fL MCH 28.8 25.2 - 33.5 pg MCHC 32.4 28.4 - 34.8 g/dL RDW 13.1 11.8 - 14.4 % Platelets See Reflexed IPF Result 138 - 453 k/uL Platelet, Fluorescence 3 (LL) 138 - 453 k/uL Platelet, Immature Fraction 48.4 (H) 1.1 - 10.3 % NRBC Automated 0.0 0.0 per 100 WBC Neutrophils % 83 (H) 36 - 65 % Lymphocytes % 12 (L) 24 - 43 % Monocytes % 4 3 - 12 % Eosinophils % 0 (L) 1 - 4 % Basophils % 0 0 - 2 % Immature Granulocytes % 1 (H) 0 % Neutrophils Absolute 5.15 1.50 - 8.10 k/uL Lymphocytes Absolute 0.76 (L) 1.10 - 3.70 k/uL Monocytes Absolute 0.22 0.10 - 1.20 k/uL Eosinophils Absolute <0.03 0.00 - 0.44 k/uL Basophils Absolute <0.03 0.00 - 0.20 k/uL Immature Granulocytes Absolute 0.03 0.00 - 0.30 k/uL Basic Metabolic Panel w/ Reflex to MG Result Value Ref Range Sodium 133 (L) 136 - 145 mmol/L Potassium 4.2 3.7 - 5.3 mmol/L Chloride 104 98 - 107 mmol/L CO2 20 20 - 31 mmol/L Anion Gap 9 9 - 16 mmol/L Glucose 97 74 - 99 mg/dL BUN 21 8 - 23 mg/dL Creatinine 0.5 (L) 0.7 - 1.2 mg/dL Est, Glom Filt Rate >90 >60 mL/min/1.73m2 Calcium 8.6 8.6 - 10.4 mg/dL CBC with Auto Differential Result Value Ref Range WBC 8.6 3.5 - 11.3 k/uL RBC 3.83 (L) 4.21 - 5.77 m/uL Hemoglobin 10.8 (L) 13.0 - 17.0 g/dL Hematocrit 34.8 (L) 40.7 - 50.3 % MCV 90.9 82.6 - 102.9 fL MCH 28.2 25.2 - 33.5 pg MCHC 31.0 28.4 - 34.8 g/dL RDW 13.0 11.8 - 14.4 % Platelets See Reflexed IPF Result 138 - 453 k/uL Platelet, Fluorescence 6 (LL) 138 - 453 k/uL Platelet, Immature Fraction 25.9 (H) 1.1 - 10.3 % NRBC Automated 0.0 0.0 per 100 WBC Neutrophils % 70 (H) 36 - 65 % Lymphocytes % 21 (L) 24 - 43 % Monocytes % 8 3 - 12 % Eosinophils % 0 (L) 1 - 4 % Basophils % 0 0 - 2 % Immature Granulocytes % 1 (H) 0 % Neutrophils Absolute 6.03 1.50 - 8.10 k/uL Lymphocytes Absolute 1.79 1.10 - 3.70 k/uL Monocytes Absolute 0.72 0.10 - 1.20 k/uL Eosinophils Absolute <0.03 0.00 - 0.44 k/uL Basophils Absolute 0.03 0.00 - 0.20 k/uL Immature Granulocytes Absolute 0.05 0.00 - 0.30 k/uL Hepatic Function Panel Result Value Ref Range Albumin 3.1 (L) 3.5 - 5.2 g/dL Alkaline Phosphatase 61 40 - 129 U/L ALT 28 10 - 50 U/L AST 24 10 - 50 U/L Total Bilirubin 0.6 0.0 - 1.2 mg/dL Bilirubin, Direct 0.1 0.0 - 0.2 mg/dL Bilirubin, Indirect 0.5 0.0 - 1.0 mg/dL Total Protein 9.5 (H) 6.6 - 8.7 g/dL Globulin 6.4 g/dL Albumin/Globulin Ratio 0.5 (L) 1.0 - 2.5 Arterial Blood Gas, POC Result Value Ref Range POC pH 7.511 (H) 7.350 - 7.450 POC pCO2 27.3 (L) 35.0 - 48.0 mm Hg POC PO2 87.1 83.0 - 108.0 mm Hg POC HCO3 21.9 21.0 - 28.0 mmol/L Positive Base Excess, Art 0.2 0.0 - 3.0 mmol/L POC O2 SAT 97.7 94.0 - 98.0 % O2 Delivery Device Room Air Jone Test POSITIVE Sample Site Right Radial Artery POCT Glucose Result Value Ref Range POC Glucose 126 (H) 74 - 100 mg/dL DIRECT ANTIGLOBULIN TEST Result Value Ref Range FELIPE, Polyspecific NEGATIVE IMAGING DATA: CT CHEST W CONTRAST Result Date: 01/23/2025 EXAMINATION: CT OF THE CHEST WITH CONTRAST 01/22/2025 7:55 pm TECHNIQUE: CT of the chest was performed with the administration of intravenous contrast. Multiplanar reformatted images are provided for review. Automated exposure control, iterative reconstruction, and/or weight based adjustment of the mA/kV was utilized to reduce the radiation dose to as low as reasonably achievable. COMPARISON: Correlation is made to chest radiograph dated January 22, 2025. No similar exam for comparison. HISTORY: ORDERING SYSTEM PROVIDED HISTORY: [facility] evalaute for malignancy TECHNOLOGIST PROVIDED HISTORY: [facility] evalaute for malignancy FINDINGS: Mediastinum: Thoracic aorta is atherosclerotic. Coronary artery atherosclerosis. Thoracic aorta and central portion of the pulmonary artery opacify normally. The ascending thoracic aorta is of normal caliber. Heart size is normal. There is no pericardial effusion. No evidence of hilar adenopathy. Enlarged subcarinal node measures 1.4 cm in the short axis dimension. There are coarsely calcified subcarinal and right hilar nodes. Lungs/pleura: Mild centrilobular emphysema. There are calcified granulomas in the right lung. Bandlike opacity in the left lower lobe is probably scarring or atelectasis. Central tracheobronchial airways are unremarkable. No bronchiectasis or bronchial wall thickening. No focal consolidation, pleural effusion, or pneumothorax. Symmetric bilateral apical scarring. Upper Abdomen: Hyperdense material layers in the dependent portion of the gallbladder lumen. Differential includes excreted contrast from prior CT of the abdomen and pelvis dated January 21, 2025, small stones, and sludge. Multiple hypodensities in the liver are probably cysts. Hepatic steatosis. No acute abnormality in the upper abdomen. Soft Tissues/Bones: No aggressive lytic or blastic bony lesion. 1. No evidence of malignancy in the chest. 2. Mild centrilobular emphysema. 3. Coronary artery atherosclerosis. 4. Hepatic steatosis. US LIVER SPLEEN Result Date: 01/22/2025 EXAMINATION: RIGHT UPPER QUADRANT ULTRASOUND 01/22/2025 8:30 pm COMPARISON: January 21, 2025 HISTORY: ORDERING SYSTEM PROVIDED HISTORY: Acute onset thrombocytopenia. Rule out hepatosplenomegaly TECHNOLOGIST PROVIDED HISTORY: Acute onset thrombocytopenia. Rule out hepatosplenomegaly FINDINGS: LIVER: The l iver demonstrates normal echogenicity without evidence of intrahepatic biliary ductal dilatation. Benign cysts measure up to 12 mm. BILIARY SYSTEM: Gallbladder is unremarkable without evidence of pericholecystic fluid, wall thickening or stones. Negative sonographic Tate's sign. Common bile duct is within normal limits measuring 4 mm. RIGHT KIDNEY: The right kidney is grossly unremarkable without evidence of hydronephrosis. The right kidney measures 11.1 cm in length. PANCREAS: Visualized portions of the pancreas are unremarkable. OTHER: No evidence of right upper quadrant ascites. The spleen is normal in size, measuring 9.2 cm. 1. Unremarkable right upper quadrant ultrasound. 2. Normal spleen. XR CHEST PORTABLE Result Date: 01/22/2025 EXAMINATION: ONE XRAY VIEW OF THE CHEST 01/22/2025 10:57 am COMPARISON: None. HISTORY: ORDERING SYSTEM PROVIDED HISTORY: To look for pnemonia TECHNOLOGIST PROVIDED HISTORY: To look for pnemonia FINDINGS: Lungs: Clear. Pleura: No effusion or pneumothorax. Cardiomediastinal silhouette: Normal contours. Bones: No acute bony findings. Soft tissues: Normal. No acute pulmonary findings. IMPRESSION: Primary Problem Acute idiopathic thrombocytopenic purpura (HCC) Active Hospital Problems Diagnosis Date Noted S/P AAA repair [Z98.890, Z86.79] 01/23/2025 Acute idiopathic thrombocytopenic purpura (HCC) [D69.3] 01/22/2025 Rash [R21] 01/22/2025 Acute severe thrombocytopenia Recent AAA repair Petechial rash Blisters RECOMMENDATIONS: I reviewed the labs/imaging available to me,outside records and discussed with the patient.I explained to the patient the nature of this problem. I explained the significance of these abnormalities and possible etiology and management optionsFollow-up on peripheral smear however given isolated thrombocytopenia ITP is high in the differential. Given recent AAA repair and exposure to heparin continues reasonable to rule out HIT. 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 KIM sent. Agree with Decadron 40 mg daily x 4 doses. Day #3 today Patient's status post 2 infusions of IV IgG 1 g/kg dose Patient not a candidate for any anticoagulation With patient's such severe thrombocytopenia I still suspect ITP primary or secondary. HIT typicallydoes not lead to undetectable platelet counts transfuse platelet only if patient is bleeding Check H. pylori stool antigen test, has been ordered specimen needs to be collected Patient remains at risk of having spontaneous fatal bleed Fall precautions Closely monitor platelet count Discussed increased risk of bleeding as well as spontaneous brain bleeds with platelet count less than 10,000 Continue close monitoring. Will follow Okay to transfer patient out of ICU. Will continue to need periodic neurological nursing evaluation Discussed with patient and Nurse. Thank you for asking us to see this patient. Robel Mccormack MD This note is created with the assistance of a speech recognition program. While intending to generate a document that actually reflects the content of the visit, the document can still have some errors including those of syntax and sound a like substitutions which may escape proof reading. It such instances, actual meaning can be extrapolated by contextual diversion. * Ger Balbuena MD - 01/24/2025 1:56 PM EDT Critical care team - Resident sign-out to medicine service Date and time: 01/24/2025 3:16 PM Patient's name: Ambrosio Ramírez Patient's account/billing number: [id number] Patient's Date of : 1960 Age: 64 y.o. Date of Admission: 01/22/2025 3:32 AM Length of stay during current admission: 2 Primary Care Physician: Davion Stephenson DO Code Status: Full Code Mode of physician to physician communication: [] Via telephone [] In person Date and time of sign-out: 01/24/2025 3:16 PM Accepting Internal Medicine resident: MIAN Accepting Medicine team: Intermed Accepting team's attending: Anish Canada DO Patient's current ICU Bed: 3008 Patient's assigned bed on floor: 441 [] Med-Surg Monitored Step-down [] Psychiatry ICU [] Psych floor Reason for ICU admission: Severe acute thrombocytopenia ICU course summary: Ambrosio Ramírez is a 64 y.o. male with a past medical history significant for hyperlipidemia, chronic smoker and AAA 5.2 cm status post repair [facility] site in the right groin for his AAA repair. As per the patient, he was taking shower when he noted spots of blood on the dressing at the exit site. Patient got concerned and went to the [facility]. At the outlying facility, patient was hemodynamically stable. He underwent lab work which was essentially unremarkable except for thrombocy topenia with platelet count of 4000. Patient was found to have diffuse petechiae all over his body and 3 blood failed blisters in his mouth and 1 tongue blister. As per the patient, the symptoms started today. He denies any dark stool, blood in stool or hematuria. He denies being sick recently or fevers, rigors or chills. Patient denies any abdominal pain, nausea or vomiting. As per the patient, there has been no swelling or pressure-like sensation in his right groin as well. Patient was transferred to [facility] ICU for the concern of severe thrombocytopenia with petechiae but no major bleed. He also underwent CT abdomen pelvis with contrast which shows patent graft, 4.8 cm thrombosed infrarenal fusiform abdominal aorta with no leak. There were no findings of retroperitoneal hematoma as per the radiologist read. His CBC here shows WBC 8.3, hemoglobin 13.8, hematocrit 40.6 and platelet count of less than 2. Hisurinalysis is essentially unremarkable. Heme onc was consulted and they recommended IVIG and daily decadron therapy for 4 days. Patient also received two doses of IVIG. His platelets have been improving. He does not have any major or active bleeding. He did not require platelet transfusions. Patients heparin induced thrombocytopenia antibodies were also positive. Patient is cleared by heme-onc to go to floors today. Procedures during patient's ICU stay: None Current Vitals: BP (!) 116/57 Pulse 64 Temp 97.6 ??F (36.4 ??C) (Oral) Resp 17 Ht 1.803 m (5' 11 ) Wt 66 kg (145 lb 9.6 oz) SpO2 99% BMI 20.31 kg/m?? Cultures: Blood cultures: [] None drawn [x] Negative [] Positive (Details: ) Urine Culture: [x] None drawn [] Negative [] Positive (Details: ) Sputum Culture: [x] None drawn [] Negative [] Positive (Details: ) Endotracheal aspirate: [x] None drawn [] Negative [] Positive (Details: ) Consults: 1. Hematology-Oncology Assessment: Patient Active Problem List Diagnosis Date Noted S/P AAA repair 01/23/2025 Acute idiopathic thrombocytopenic purpura (HCC) 01/22/2025 Rash 01/22/2025 Recommended Follow-up: Follow up CBC at 4 pm. Please follow heme-onc recommendations. Please avoid resuming aspirin for the patient. Please follow up ristocetin assay, ONOFRE and other labs pertaining to ITP. Above mentioned assessment and plan was discussed by me with the admitting medicine resident. The medicine team assigned to the patient by medicine admitting resident will be following up the patientfrom now onwards on the floor. Ger Balbuena MD, M.D. PGY-1 IM Resident 01/24/2025, 3:16 PM * Mart Caro MD - 01/24/2025 7:29 AM EDT Images from the original note were not included. Critical Care -Progress Note Patient's name: Ambrosio Ramírez Patient's account/billing number: [id number] Patient's Date of : 1960 Age: 64 y.o. Date of Admission: 01/22/2025 3:32 AM Date of History and Physical Examination: 01/24/2025 Primary Care Physician: Davion Stephenson DO Attending Physician: Dr Mart Caro Code Status: Full Code Chief complaint: No chief complaint on file. Today's Evaluation Subjective Evaluation: Patient denies any chest pain, nausea, vomiting, abdominal pain, change in bowel or bladder habits.Patient had snot from nose yesterday with some tinge of blood in it. He has a purpuric rash in lower extremities. Labs reviewed: Patient's platelets 6000/uL today. PBS, H pylori and ONOFRE pending. 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 HISTORY OF PRESENT ILLNESS: Ambrosio Ramírez is a 64 y.o. male with a past medical history significant for hyperlipidemia, chronic smoker and AAA 5.2 cm status post repair [facility] the access site in the right groin for his AAA repair. As per the patient, he was taking shower when he noted spots of blood on the dressing at the exit site. Patient got concerned and went to the [facility]. At the outlying facility, patient was hemodynamically stable. He underwent lab work which was essentially unremarkable except for thrombocy topenia with platelet count of 4000. Patient was found to have diffuse petechiae all over his body and 3 blood failed blisters in his mouth and 1 tongue blister. As per the patient, the symptoms started today. He denies any dark stool, blood in stool or hematuria. He denies being sick recently or fevers, rigors or chills. Patient denies any abdominal pain, nausea or vomiting. As per the patient, there has been no swelling or pressure-like sensation in his right groin as well. Patient was transferred to [facility] ICU for the concern of severe thrombocytopenia with petechiae but no major bleed. He also underwent CT abdomen pelvis with contrast which shows patent graft, 4.8 cm thrombosed infrarenal fusiform abdominal aorta with no leak. There were no findings of retroperitoneal hematoma as per the radiologist read. He CBC here shows WBC 8.3, hemoglobin 13.8, hematocrit 40.6 and platelet count of less than 2. His urinalysis is essentially unremarkable. Plan to consult hematology oncology for further workup of thrombocytopenia and need for IV steroids. PAST MEDICAL HISTORY: History reviewed. No pertinent past medical history. PAST SURGICAL HISTORY: No past surgical history on file. ALLERGIES: No Known Allergies HOME MEDS: : Prior to Admission medications Not on File SOCIAL HISTORY: TOBACCO: reports that he has quit smoking. His smoking use included cigarettes. He started smokingabout 34 years ago. He has a 17.1 pack-year smoking history. He has never used smokeless tobacco. ETOH: reports no history of alcohol use. DRUGS: reports no history of drug use. FAMILY HISTORY: No family history on file. REVIEW OF SYSTEMS (ROS): Review of Systems - General ROS: Completed and except as mentioned above were negative ENT ROS: Epistaxis Hematological and Lymphatic ROS: Completed and except as mentioned above were negative Endocrine ROS: Completed and except as mentioned above were negative Respiratory ROS: Completed and except as mentioned above were negative Cardiovascular ROS: Completed and except as mentioned above were negative Gastrointestinal ROS: Completed and except as mentioned above were negative Genito-Urinary ROS: Completed and except as mentioned above were negative Musculoskeletal ROS: Completed and except as mentioned above were negative Neurological ROS: Completed and except as mentioned above were negative OBJECTIVE: VITAL SIGNS: BP 132/69 Pulse 71 Temp 97.7 ??F (36.5 ??C) (Oral) Resp 21 Ht 1.803 m (5' 11 ) Wt 66 kg (145 lb 9.6 oz) SpO2 100% BMI 20.31 kg/m?? Tmax over 24 hours: Temp (24hrs), Av.9 ??F (36.6 ??C), Min:97.6 ??F (36.4 ??C), Max:98.2 ??F (36.8 ??C) Patient Vitals for the past 8 hrs: BP Temp Temp src Pulse Resp SpO2 01/24/25 0800 132/69 97.7 ??F (36.5 ??C) Oral 71 21 100 % 01/24/25 0700 134/65 -- -- 64 15 100 % 01/24/25 0600 130/72 -- -- 65 14 98 % 01/24/25 0500 136/73 -- -- 60 16 100 % 01/24/25 0400 135/72 98.2 ??F (36.8 ??C) Oral 63 16 100 % 01/24/25 0300 (!) 161/82 -- -- 73 16 100 % 01/24/25 0200 (!) 143/92 -- -- 67 16 99 % 01/24/25 0100 (!) 143/64 -- -- 59 18 100 % Intake/Output Summary (Last 24 hours) at 01/24/2025 0852 Last data filed at 01/24/2025 0400 Gross per 24 hour Intake 640.62 ml Output 2075 ml Net -1434.38 ml Date 01/24/25 0000 - 01/24/25 2359 Shift [id number] 0126-6408 5906-3383 24 Hour Total INTAKE Shift Total(mL/kg) OUTPUT Urine(mL/kg/hr) 700(1.3) 700 Shift Total(mL/kg) 700(10.6) 700(10.6) Weight (kg) 66 66 66 66 Wt Readings from Last 3 Encounters: 01/22/25 66 kg (145 lb 9.6 oz) Body mass index is 20.31 kg/m??. PHYSICAL EXAM: Constitutional: No acute distress HEENT: NC/AT, PERRL, no congestion or rhinorrhea. Ecchymosis in oral cavity. Neck: Supple, symmetrical, trachea midline, no adenopathy, no JVD Respiratory: Clear to auscultation, no wheezes, rales, rhonchi Cardiovascular: Regular rate and rhythm, normal S1, S2, no murmur Abdomen: Soft, nontender, nondistended, no masses or organomegaly Extremities: No pedal edema, no clubbing or cyanosis. Petechial spots lower extremities. Neuro: A&O x4, moving all four extremities, strength and sensation intact. MEDICATIONS: Scheduled Meds: pantoprazole 40 mg Oral QAM AC sennosides-docusate sodium 2 tablet Oral Daily sodium chloride flush 5-40 mL IntraVENous 2 times per day dexAMETHasone 40 mg IntraVENous Q24H Continuous Infusions: sodium chloride Stopped (01/23/25 0854) PRN Meds: sodium chloride flush, 5-40 mL, PRN sodium chloride, , PRN potassium chloride, 20 mEq, PRN Or potassium chloride, 10 mEq, PRN magnesium sulfate, 2,000 mg, PRN ondansetron, 4 mg, Q8H PRN Or ondansetron, 4 mg, Q6H PRN polyethylene glycol, 17 g, Daily PRN acetaminophen, 650 mg, Q6H PRN Or acetaminophen, 650 mg, Q6H PRN labetalol, 10 mg, Q4H PRN albuterol, 2.5 mg, Q4H PRN ABGs: No results found for: PHART , PH , XVT2XDN , PCO2 , PO2ART , PO2 , [id number] , HCO3 , BEART , BE , THGBART , THB , AEW1ELR , Q1ZOUXHO , O2SAT , FIO2 DATA: Complete Blood Count: Recent Labs 01/23/25 0402 01/23/25 1812 01/24/25 0332 WBC 7.5 6.2 8.6 RBC 4.12* 3.78* 3.83* HGB 11.8* 10.9* 10.8* HCT 36.1* 33.6* 34.8* MCV 87.6 88.9 90.9 MCH 28.6 28.8 28.2 MCHC 32.7 32.4 31.0 RDW 12.8 13.1 13.0 PLT See Reflexed IPF Result See Reflexed IPF Result See Reflexed IPF Result Last 3 Blood Glucose: Recent Labs 01/22/25 0418 01/22/25 0934 01/23/25 0402 01/24/25 0332 GLUCOSE 112* 111* 88 97 PT/INR: Lab Results Component Value Date/Time PROTIME 14.2 01/22/2025 04:07 AM INR 1.1 01/22/2025 04:07 AM PTT: Lab Results Component Value Date/Time APTT 66.5 01/22/2025 04:07 AM Comprehensive Metabolic Profile: Recent Labs 01/22/2541701/22/25 0934 01/23/25 0402 01/24/25 0332 NA 136 135* 133* 133* K 3.9 3.9 3.7 4.2 CL 101 101 102 104 CO2 20 19* 19* 20 BUN 13 13 20 21 CREATININE 0.6* 0.6* 0.6* 0.5* GLUCOSE 112* 111* 88 97 CALCIUM 9.2 9.3 8.7 8.6 BILITOT 0.5 -- -- -- ALKPHOS 84 -- -- -- AST 28 -- -- -- ALT 36 -- -- -- Magnesium: No results found for: MG Phosphorus: No results found for: PHOS Ionized Calcium: No results found for: CAION Urinalysis: Lab Results Component Value Date/Time NITRU NEGATIVE 01/22/2025 04:25 AM COLORU Yellow 01/22/2025 04:25 AM PHUR 5.5 01/22/2025 04:25 AM WBCUA None 01/22/2025 04:25 AM RBCUA 10 TO 20 01/22/2025 04:25 AM BACTERIA None 01/22/2025 04:25 AM LEUKOCYTESUR NEGATIVE 01/22/2025 04:25 AM UROBILINOGEN Normal 01/22/2025 04:25 AM BILIRUBINUR NEGATIVE 01/22/2025 04:25 AM GLUCOSEU NEGATIVE 01/22/2025 04:25 AM KETUA NEGATIVE 01/22/2025 04:25 AM HgBA1c: No results found for: LABA1C TSH: Lab Results Component Value Date/Time TSH 1.24 01/22/2025 04:18 AM Lactic Acid: No results found for: LACTA Troponin: No results for input(s): TROPONINI in the last [address] CHEST W CONTRAST Result Date: 01/23/2025 EXAMINATION: CT OF THE CHEST WITH CONTRAST 01/22/2025 7:55 pm TECHNIQUE: CT of the chest was performed with the administration of intravenous contrast. Multiplanar reformatted images are provided for review. Automated exposure control, iterative reconstruction, and/or weight based adjustment of the mA/kV was utilized to reduce the radiation dose to as low as reasonably achievable. COMPARISON: Correlation is made to chest radiograph dated January 22, 2025. No similar exam for comparison. HISTORY: ORDERING SYSTEM PROVIDED HISTORY: [facility] eval[facility] TECHNOLOGIST PROVIDED HISTORY: [facility] evalaute for malignancy FINDINGS: Mediastinum: Thoracic aorta is atherosclerotic. Coronary artery atherosclerosis. Thoracic aorta and central portion of the pulmonary artery opacify normally. The ascending thoracic aorta is of normal caliber. Heart size is normal. There is no pericardial effusion. No evidence of hilar adenopathy. Enlarged subcarinal node measures 1.4 cm in the short axis dimension. There are coarsely calcified subcarinal and right hilar nodes. Lungs/pleura: Mild centrilobular emphysema. There are calcified granulomas in the right lung. Bandlike opacity in the left lower lobe is probably scarring or atelectasis. Central tracheobronchial airways are unremarkable. No bronchiectasis or bronchial wall thickening. No focal consolidation, pleural effusion, or pneumothorax. Symmetric bilateral apical scarring. Upper Abdomen: Hyperdense material layers in the dependent portion of the gallbladder lumen. Differential includes excreted contrast from prior CT of the abdomen and pelvis dated January 21, 2025, small stones, and sludge. Multiple hypodensities in the liver are probably cysts. Hepatic steatosis. No acute abnormality in the upper abdomen. Soft Tissues/Bones: No aggressive lytic or blastic bony lesion. 1. No evidence of malignancy in the chest. 2. Mild centrilobular emphysema. 3. Coronary artery atherosclerosis. 4. Hepatic steatosis. US LIVER SPLEEN Result Date: 01/22/2025 EXAMINATION: RIGHT UPPER QUADRANT ULTRASOUND 01/22/2025 8:30 pm COMPARISON: January 21, 2025 HISTORY: ORDERING SYSTEM PROVIDED HISTORY: Acute onset thrombocytopenia. Rule out hepatosplenomegaly TECHNOLOGIST PROVIDED HISTORY: Acute onset thrombocytopenia. Rule out hepatosplenomegaly FINDINGS: LIVER: The l iver demonstrates normal echogenicity without evidence of intrahepatic biliary ductal dilatation. Benign cysts measure up to 12 mm. BILIARY SYSTEM: Gallbladder is unremarkable without evidence of pericholecystic fluid, wall thickening or stones. Negative sonographic Tate's sign. Common bile duct is within normal limits measuring 4 mm. RIGHT KIDNEY: The right kidney is grossly unremarkable without evidence of hydronephrosis. The right kidney measures 11.1 cm in length. PANCREAS: Visualized portions of the pancreas are unremarkable. OTHER: No evidence of right upper quadrant ascites. The spleen is normal in size, measuring 9.2 cm. 1. Unremarkable right upper quadrant ultrasound. 2. Normal spleen. XR CHEST PORTABLE Result Date: 01/22/2025 EXAMINATION: ONE XRAY VIEW OF THE CHEST 01/22/2025 10:57 am COMPARISON: None. HISTORY: ORDERING SYSTEM PROVIDED HISTORY: To look for pnemonia TECHNOLOGIST PROVIDED HISTORY: To look for pnemonia FINDINGS: Lungs: Clear. Pleura: No effusion or pneumothorax. Cardiomediastinal silhouette: Normal contours. Bones: No acute bony findings. Soft tissues: Normal. No acute pulmonary findings. ASSESSMENT: Principal Problem: Thrombocytopenia Active Problems: Rash S/P AAA repair Resolved Problems: * No resolved hospital problems. * Patient is a 64-year-old male with past medical history significant for hyperlipidemia presents to the hospital with bleeding spot from right groin access site after elective AAA repair, ecchymosis in oral cavity and found to have severe acute thrombocytopenia. 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 PLAN: PLAN/MEDICAL DECISION MAKING: NEUROLOGIC: Currently AO x 4. Neurochecks per protocol. CARDIOVASCULAR: BP Range: Systolic (24hrs), Av , Min:104 , Max:161 Diastolic (24hrs), Av, Min:54, Max:92 Pulse Range: Pulse Av.2 Min: 59 Max: 75 Patient currently hemodynamically stable. Blood pressure monitoring Goal MAP greater than 65. PULMONARY: Respiration Range: Resp Av Min: 12 Max: 21 Current Pulse Ox: SpO2: 100 % 24HR Pulse Ox Range: SpO2 Av.3 % Min: 98 % Max: 100 % Patient currently saturating well on room air. CT chest did not show any active process. RENAL/FLUID/ELECTROLYTE: Monitor BMP and urine output. In: 640.6 [P.O.:590; I.V.:0.6] Out: 2074 [Urine:2074] GI/NUTRITION: Hepatic steatosis on imaging ADULT DIET; Regular Bowel regimen as needed. On sennakot 2 tabs daily Patient is suffering from constipation ID: Tmax: Temp (24hrs), Av.9 ??F (36.6 ??C), Min:97.6 ??F (36.4 ??C), Max:98.2 ??F (36.8 ??C) Temperature Range: Temp: 97.7 ??F (36.5 ??C) Temp Av.9 ??F (36.6 ??C) Min: 97.6 ??F (36.4 ??C)Max: 98.2 ??F (36.8 ??C) - WBC Lab Results Component Value Date WBC 8.6 01/24/2025 Currently no signs of infection. HEME: Recent Labs 01/23/25 0402 01/23/25 1812 01/24/25 0332 HGB 11.8* 10.9* 10.8* Severe acute thrombocytopenia. 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 Monitor CBC. On dexamethasone 40 mg once daily for 4 days. Hematology on board. Appreciate recommendations. Patient received 2 doses of IVIG so far ENDOCRINE: POCT glucose monitoring - Continue to monitor blood glucose, goal <180 - Most recent BGL is Recent Labs 01/22/25 0934 01/23/25 0402 01/24/25 0332 GLUCOSE 111* 88 97 OTHER: - PT/OT/ST - Code Status: Full Code PROPHYLAXIS: - Stress ulcer: PPI - DVT: SCDs HOME MEDICATIONS RECONCILED: [] No [x] Yes CONSULTATION NEEDED: [] No [x] Yes: Hematology Earlene Charles MD PGY-1 Department of Internal Medicine/ Critical care [place], [place] 01/24/2025 8:52 AM Attending Physician Statement I have discussed the care of Ambrosio Ramírez, including pertinent history and exam findings with the resident. I have reviewed the elliott elements of all parts of the encounter with the resident. I have seen and examined the patient with the resident. I agree with the assessment and plan and status of the problem list as documented. I saw the patient during around today, chart reviewed platelet count is 6. He had 2 dose of IVIG. He is on Decadron 40 mg once daily. Followed by hematology. Peripheral smear is pending. No evidence of bleeding actively at this time. Discussed with nursing staff, treatment and plan discussed. Discussed with respiratory therapist. Total critical care time caring for this patient with life threatening, unstable organ failure, including direct patient contact, management of life support systems, review of data including imaging and labs, discussions with other team members and physicians at least 35 Min so far today, excludingprocedures. This note is created with the assistance of a speech recognition program. While intent was to generate a document that actually reflects the content of the visit, the document can still have some errors including those of syntax and sound-alike substitutions which may escape proof reading. It such instances, actual meaning can be extrapolated by contextual diversion. Mart Caro MD 01/24/2025 11:53 AM * Robel Mccormack MD - 01/23/2025 3:47 PM EDT Images from the original note were not included. Today's Date: 01/23/2025 Patient Name: Ambrosio Ramírez Date of admission: 01/22/2025 3:32 AM Patient's age: 64 y.o., 1960 Admission Dx: Thrombocytopenia [D69.6] Reason for Consult: management recommendations Requesting Physician: Uzair Wilson MD CHIEF COMPLAINT: Thrombocytopenia. Rash. History Obtained From: patient, electronic medical record Interval history: Patient seen and examined Labs and vitals reviewed Platelet remains undetectable Patient denies noticing any bleeding Resting comfortably HISTORY OF PRESENT ILLNESS: The patient is a 64 y.o. male who is transferred from outside facility to [facility] for higher level of care. Patient initially presented to the [facility] with chief complaint of bleeding from access site in the right groin for his AAA repair. Patient was taking a shower and noticed flecks of blood on the dressing at the exit site. Patient went to the ER for checkup. Lab workup shows platelet count of 4000 patient also noted to have diffuse petechiae including blood-filled blisters in his mouth. Denies any dark bowel movements. Denies any recent illness. Denies abdominal pain. Patient underwent CT abdomen pelvis which showed patent graft and 4.8 cm thrombosed inf rarenal fusiform abdominal aorta with no leak. No abdominal bleeding noted. Patient started on high-dose Decadron 40 mg daily. Patient being closely monitored in the ICU. Lab workup done so far shows negative otitis panel. Cultures so far negative H. pylori testing pending. HIT antibody panel pending. Platelet count from this morning was 2. ONOFRE screen pending COVID test negative HIV screen negative Past Medical History: Aortic aneurysm Past Surgical History: Aortic aneurysm repair Medications: Prior to Admission medications Not on File Current Facility-Administered Medications Medication Dose Route Frequency Provider Last Rate Last Admin pantoprazole (PROTONIX) tablet 40 mg 40 mg Oral QAM AC Pérez Carmona MD 40 mg at 01/23/25 0841 sennosides-docusate sodium (SENOKOT-S) 8.6-50 MG tablet 2 tablet 2 tablet Oral Daily Pérez Carmona MD Immune Globulin (Human) 66,000 mg in dextrose 5 % 1,320 mL Infusion 1,000 mg/kg IntraVENous Once Robel Mccormack MD sodium chloride flush 0.9 % injection 5-40 mL 5-40 mL IntraVENous 2 times per day Vitor Joseph MD 10 mL at 01/23/25 0833 sodium chloride flush 0.9 % injection 5-40 mL 5-40 mL IntraVENous PRN Vitor Joseph MD 0.9 % sodium chloride infusion IntraVENous PRN Vitor Joseph MD Stopped at 01/23/25 0854 potassium chloride 20 mEq/50 mL IVPB (Central Line) 20 mEq IntraVENous PRN Vitor Joseph MD Or potassium chloride 10 mEq/100 mL IVPB (Peripheral Line) 10 mEq IntraVENous PRN Vitor Joseph MD magnesium sulfate 2000 mg in 50 mL IVPB premix 2,000 mg IntraVENous PRN Vitor Joseph MD ondansetron (ZOFRAN-ODT) disintegrating tablet 4 mg 4 mg Oral Q8H PRN Vitor Joseph MD Or ondansetron (ZOFRAN) injection 4 mg 4 mg IntraVENous Q6H PRN Vitor Joseph MD polyethylene glycol (GLYCOLAX) packet 17 g 17 g Oral Daily PRN Vitor Joseph MD 17 g at 01/23/25 0842 acetaminophen (TYLENOL) tablet 650 mg 650 mg Oral Q6H PRN Vitor Joseph MD Or acetaminophen (TYLENOL) suppository 650 mg 650 mg Rectal Q6H PRN Vitor Joseph MD labetalol (NORMODYNE;TRANDATE) injection 10 mg 10 mg IntraVENous Q4H PRN Milind Corley MD albuterol (PROVENTIL) (2.5 MG/3ML) 0.083% nebulizer solution 2.5 mg 2.5 mg Nebulization Q4H PRN Uzair Wilson MD dexAMETHasone (DECADRON) 40 mg in sodium chloride 0.9 % 50 mL IVPB 40 mg IntraVENous Q24H Milind Corley MD Stopped at 01/23/25 0848 Allergies: Patient has no known allergies. Social History: reports that he has quit smoking. His smoking use included cigarettes. He started smoking about 34 years ago. He has a 17.1 pack-year smoking history. He has never used smokeless tobacco. He reports that he does not drink alcohol and does not use drugs. Family History: Hypertension REVIEW OF SYSTEMS: Constitutional: No fever or chills. No night sweats, no weight loss Eyes: No eye discharge, double vision, or eye pain HEENT: negative for sore mouth, sore throat, hoarseness and voice change Respiratory: negative for cough , sputum, dyspnea, wheezing, hemoptysis, chest pain Cardiovascular: negative for chest pain, dyspnea, palpitations, orthopnea, PND Gastrointestinal: negative for nausea, vomiting, diarrhea, constipation, abdominal pain, Dysphagia,hematemesis and hematochezia Genitourinary: negative for frequency, dysuria, nocturia, urinary incontinence, and hematuria Integument: negative for rash, skin lesions, bruises. Hematologic/Lymphatic: negative for easy bruising, bleeding, lymphadenopathy, or petechiae Endocrine: negative for heat or cold intolerance,weight changes, change in bowel habits and hair loss Musculoskeletal: negative for myalgias, arthralgias, pain, joint swelling,and bone pain Neurological: negative for headaches, dizziness, seizures, weakness, numbness PHYSICAL EXAM: BP (!) 115/54 Pulse 74 Temp 97.7 ??F (36.5 ??C) (Oral) Resp 17 Ht 1.803 m (5' 11 ) Wt 66 kg (145 lb 9.6 oz) SpO2 98% BMI 20.31 kg/m?? Temp (24hrs), Av.2 ??F (36.8 ??C), Min:97.7 ??F (36.5 ??C), Max:98.4 ??F (36.9 ??C) General appearance - well appearing, no in pain or distress Mental status - alert and cooperative Eyes - pupils equal and reactive, extraocular eye movements intact Ears - bilateral TM's and external ear canals normal Mouth - mucous membranes moist, pharynx normal without lesions Neck - supple, no significant adenopathy Lymphatics - no palpable lymphadenopathy, no hepatosplenomegaly Chest - clear to auscultation, no wheezes, rales or rhonchi, symmetric air entry Heart - normal rate, regular rhythm, normal S1, S2, no murmurs Abdomen - soft, nontender, nondistended, no masses or organomegaly Neurological - alert, oriented, normal speech, no focal findings or movement disorder noted Musculoskeletal - no joint tenderness, deformity or swelling Extremities - peripheral pulses normal, no pedal edema, no clubbing or cyanosis Skin - normal coloration and turgor, no rashes, no suspicious skin lesions noted , DATA: Labs: Results for orders placed or performed during the hospital encounter of 01/22/25 MRSA DNA Probe, Nasal Specimen: Nasal Result Value Ref Range Specimen Description .NASAL SWAB MRSA, DNA, Nasal NEGATIVE NEGATIVE Culture, Blood 1 Specimen: Blood Result Value Ref Range Specimen Description .BLOOD Special Requests LH 10ML Culture NO GROWTH 1 DAY Culture, Blood 1 Specimen: Blood Result Value Ref Range Specimen Description .BLOOD Special Requests RH 9ML Culture NO GROWTH 1 DAY Urinalysis with Reflex to Culture Specimen: Urine, clean catch Result Value Ref Range Color, UA Yellow Yellow Turbidity UA Clear Clear Glucose, Ur NEGATIVE NEGATIVE mg/dL Bilirubin, Urine NEGATIVE NEGATIVE Ketones, Urine NEGATIVE NEGATIVE mg/dL Specific Lena, UA 1.052 (H) 1.005 - 1.030 Urine Hgb MODERATE (A) NEGATIVE pH, Urine 5.5 5.0 - 8.0 Protein, UA NEGATIVE NEGATIVE mg/dL Urobilinogen, Urine Normal 0.0 - 1.0 EU/dL Nitrite, Urine NEGATIVE NEGATIVE Leukocyte Esterase, Urine NEGATIVE NEGATIVE APTT Result Value Ref Range APTT 66.5 (H) 23.0 - 36.5 sec Protime-INR Result Value Ref Range Protime 14.2 11.7 - 14.9 sec INR 1.1 Basic Metabolic Panel w/ Reflex to MG Result Value Ref Range Sodium 136 136 - 145 mmol/L Potassium 3.9 3.7 - 5.3 mmol/L Chloride 101 98 - 107 mmol/L CO2 20 20 - 31 mmol/L Anion Gap 15 9 - 16 mmol/L Glucose 112 (H) 74 - 99 mg/dL BUN 13 8 - 23 mg/dL Creatinine 0.6 (L) 0.7 - 1.2 mg/dL Est, Glom Filt Rate >90 >60 mL/min/1.73m2 Calcium 9.2 8.6 - 10.4 mg/dL CBC with Auto Differential Result Value Ref Range WBC 8.3 3.5 - 11.3 k/uL RBC 4.70 4.21 - 5.77 m/uL Hemoglobin 13.6 13.0 - 17.0 g/dL Hematocrit 40.6 (L) 40.7 - 50.3 % MCV 86.4 82.6 - 102.9 fL MCH 28.9 25.2 - 33.5 pg MCHC 33.5 28.4 - 34.8 g/dL RDW 12.8 11.8 - 14.4 % Platelets See Reflexed IPF Result 138 - 453 k/uL Platelet, Fluorescence <2 (LL) 138 - 453 k/uL Platelet, Immature Fraction 0.0 (L) 1.1 - 10.3 % NRBC Automated 0.0 0.0 per 100 WBC Neutrophils % 68 (H) 36 - 65 % Lymphocytes % 19 (L) 24 - 43 % Monocytes % 11 3 - 12 % Eosinophils % 0 (L) 1 - 4 % Basophils % 0 0 - 2 % Immature Granulocytes % 1 (H) 0 % Neutrophils Absolute 5.63 1.50 - 8.10 k/uL Lymphocytes Absolute 1.60 1.10 - 3.70 k/uL Monocytes Absolute 0.94 0.10 - 1.20 k/uL Eosinophils Absolute <0.03 0.00 - 0.44 k/uL Basophils Absolute 0.03 0.00 - 0.20 k/uL Immature Granulocytes Absolute 0.05 0.00 - 0.30 k/uL Haptoglobin Result Value Ref Range Haptoglobin 381 (H) 30 - 200 mg/dL Lactic Acid Result Value Ref Range Lactic Acid, Whole Blood 1.3 0.7 - 2.1 mmol/L Lactate Dehydrogenase Result Value Ref Range LD 193 135 - 225 U/L Reticulocytes Result Value Ref Range Retic Ct Pct 0.8 0.5 - 1.9 % Absolute Retic # 0.039 0.030 - 0.080 M/uL Immature Retic Fract 17.0 2.7 - 18.3 % Retic Hemoglobin 29.9 28.2 - 35.7 pg Sedimentation Rate Result Value Ref Range Sed Rate, Automated 119 (H) 0 - 20 mm/Hr TSH reflex to FT4 Result Value Ref Range TSH 1.24 0.27 - 4.20 uIU/mL Microscopic Urinalysis Result Value Ref Range WBC, UA None 0 - 5 /HPF RBC, UA 10 TO 20 0 - 4 /HPF Casts UA 0 - 8 /LPF None Reference range defined for non-centrifuged specimen. Epithelial Cells, UA None 0 - 5 /HPF Bacteria, UA None None HIV Screen Result Value Ref Range HIV Ag/Ab NONREACTIVE NONREACTIVE Procalcitonin Result Value Ref Range Procalcitonin 0.06 0.00 - 0.09 ng/mL Fibrinogen Result Value Ref Range Fibrinogen 681 (H) 203 - 521 mg/dL Fibrin Split Products Result Value Ref Range FDP >5 (H) <5 ug/mL CK Result Value Ref Range Total CK 62 39 - 308 U/L C-Reactive Protein Result Value Ref Range CRP 38.0 (H) 0.0 - 5.0 mg/L Hepatic Function Panel Result Value Ref Range Albumin 3.8 3.5 - 5.2 g/dL Alkaline Phosphatase 84 40 - 129 U/L ALT 36 10 - 50 U/L AST 28 10 - 50 U/L Total Bilirubin 0.5 0.0 - 1.2 mg/dL Bilirubin, Direct 0.3 (H) 0.0 - 0.2 mg/dL Bilirubin, Indirect 0.2 0.0 - 1.0 mg/dL Total Protein 8.0 6.6 - 8.7 g/dL Globulin 4.2 g/dL Albumin/Globulin Ratio 0.9 (L) 1.0 - 2.5 Myoglobin, Blood Result Value Ref Range Myoglobin 27 (L) 28 - 72 ng/mL TEG Global Hemostasis with Lysis Result Value Ref Range Reaction Time TEG 14.7 (H) 4.6 - 9.1 min LY30(Lysis) TEG 0.0 0.0 - 2.6 % MA(Max Clot) Rapid TEG <40.0 (L) 52.0 - 70 mm Fibrinogen, Functional TEG 39.8 (H) 15.0 - 32.0 mm Hepatitis Panel, Acute Result Value Ref Range Hepatitis B Surface Ag NONREACTIVE NONREACTIVE Hepatitis C Ab NONREACTIVE NONREACTIVE Hep B Core Ab, IgM NONREACTIVE NONREACTIVE Hep A IgM NONREACTIVE NONREACTIVE Basic Metabolic Panel w/ Reflex to MG Result Value Ref Range Sodium 135 (L) 136 - 145 mmol/L Potassium 3.9 3.7 - 5.3 mmol/L Chloride 101 98 - 107 mmol/L CO2 19 (L) 20 - 31 mmol/L Anion Gap 15 9 - 16 mmol/L Glucose 111 (H) 74 - 99 mg/dL BUN 13 8 - 23 mg/dL Creatinine 0.6 (L) 0.7 - 1.2 mg/dL Est, Glom Filt Rate >90 >60 mL/min/1.73m2 Calcium 9.3 8.6 - 10.4 mg/dL CBC with Auto Differential Result Value Ref Range WBC 7.2 3.5 - 11.3 k/uL RBC 4.67 4.21 - 5.77 m/uL Hemoglobin 13.4 13.0 - 17.0 g/dL Hematocrit 40.9 40.7 - 50.3 % MCV 87.6 82.6 - 102.9 fL MCH 28.7 25.2 - 33.5 pg MCHC 32.8 28.4 - 34.8 g/dL RDW 12.9 11.8 - 14.4 % Platelets See Reflexed IPF Result 138 - 453 k/uL Platelet, Fluorescence 2 (LL) 138 - 453 k/uL Platelet, Immature Fraction 4.8 1.1 - 10.3 % NRBC Automated 0.0 0.0 per 100 WBC Neutrophils % 66 (H) 36 - 65 % Lymphocytes % 22 (L) 24 - 43 % Monocytes % 11 3 - 12 % Eosinophils % 1 1 - 4 % Basophils % 0 0 - 2 % Immature Granulocytes % 0 0 % Neutrophils Absolute 4.73 1.50 - 8.10 k/uL Lymphocytes Absolute 1.57 1.10 - 3.70 k/uL Monocytes Absolute 0.79 0.10 - 1.20 k/uL Eosinophils Absolute 0.04 0.00 - 0.44 k/uL Basophils Absolute 0.03 0.00 - 0.20 k/uL Immature Granulocytes Absolute 0.03 0.00 - 0.30 k/uL Heparin-Induced Platelet Antibody Result Value Ref Range Heparin Induced Plt Ab 1.247 (H) 0.000 - 0.400 O.D. D-Dimer, Quantitative Result Value Ref Range D-Dimer, Quant 2.86 (H) 0.00 - 0.57 ug/mL FEU CBC with Auto Differential Result Value Ref Range WBC 5.1 3.5 - 11.3 k/uL RBC 4.87 4.21 - 5.77 m/uL Hemoglobin 13.9 13.0 - 17.0 g/dL Hematocrit 42.8 40.7 - 50.3 % MCV 87.9 82.6 - 102.9 fL MCH 28.5 25.2 - 33.5 pg MCHC 32.5 28.4 - 34.8 g/dL RDW 13.0 11.8 - 14.4 % Platelets See Reflexed IPF Result 138 - 453 k/uL Platelet, Fluorescence <2 (LL) 138 - 453 k/uL Platelet, Immature Fraction 0.0 (L) 1.1 - 10.3 % NRBC Automated 0.0 0.0 per 100 WBC Neutrophils % 78 (H) 36 - 65 % Lymphocytes % 15 (L) 24 - 43 % Monocytes % 6 3 - 12 % Eosinophils % 0 (L) 1 - 4 % Basophils % 0 0 - 2 % Immature Granulocytes % 1 (H) 0 % Neutrophils Absolute 4.02 1.50 - 8.10 k/uL Lymphocytes Absolute 0.75 (L) 1.10 - 3.70 k/uL Monocytes Absolute 0.33 0.10 - 1.20 k/uL Eosinophils Absolute <0.03 0.00 - 0.44 k/uL Basophils Absolute <0.03 0.00 - 0.20 k/uL Immature Granulocytes Absolute 0.03 0.00 - 0.30 k/uL Basic Metabolic Panel w/ Reflex to MG Result Value Ref Range Sodium 133 (L) 136 - 145 mmol/L Potassium 3.7 3.7 - 5.3 mmol/L Chloride 102 98 - 107 mmol/L CO2 19 (L) 20 - 31 mmol/L Anion Gap 12 9 - 16 mmol/L Glucose 88 74 - 99 mg/dL BUN 20 8 - 23 mg/dL Creatinine 0.6 (L) 0.7 - 1.2 mg/dL Est, Glom Filt Rate >90 >60 mL/min/1.73m2 Calcium 8.7 8.6 - 10.4 mg/dL CBC with Auto Differential Result Value Ref Range WBC 7.5 3.5 - 11.3 k/uL RBC 4.12 (L) 4.21 - 5.77 m/uL Hemoglobin 11.8 (L) 13.0 - 17.0 g/dL Hematocrit 36.1 (L) 40.7 - 50.3 % MCV 87.6 82.6 - 102.9 fL MCH 28.6 25.2 - 33.5 pg MCHC 32.7 28.4 - 34.8 g/dL RDW 12.8 11.8 - 14.4 % Platelets See Reflexed IPF Result 138 - 453 k/uL Platelet, Fluorescence <2 (LL) 138 - 453 k/uL Platelet, Immature Fraction 28.7 (H) 1.1 - 10.3 % NRBC Automated 0.0 0.0 per 100 WBC Neutrophils % 63 36 - 65 % Lymphocytes % 19 (L) 24 - 43 % Monocytes % 17 (H) 3 - 12 % Eosinophils % 0 (L) 1 - 4 % Basophils % 0 0 - 2 % Immature Granulocytes % 1 (H) 0 % Neutrophils Absolute 4.73 1.50 - 8.10 k/uL Lymphocytes Absolute 1.45 1.10 - 3.70 k/uL Monocytes Absolute 1.24 (H) 0.10 - 1.20 k/uL Eosinophils Absolute <0.03 0.00 - 0.44 k/uL Basophils Absolute <0.03 0.00 - 0.20 k/uL Immature Granulocytes Absolute 0.06 0.00 - 0.30 k/uL Vitamin B12 & Folate Result Value Ref Range Vitamin B-12 624 232 - 1245 pg/mL Folate 11.7 4.8 - 24.2 ng/mL Electrophoresis Protein, Serum Result Value Ref Range Total Protein 8.3 6.6 - 8.7 g/dL Albumin (calculated) PENDING g/dL Albumin % PENDING % [id number] PENDING g/dL Alpha 1 % PENDING % [id number] PENDING g/dL Alpha 2 % PENDING % Beta Globulin PENDING g/dL Beta Percent PENDING % Gamma Globulin PENDING g/dL Gamma Globulin % PENDING % M Delfino 1, Electrophoresis Protein Serum PENDING g/dL M Delfino 2, Immunofixation Serum PENDING g/dL Total Prot. Sum PENDING g/dL Total Prot. Sum,% PENDING % Protein Electrophoresis, Serum PENDING Pathologist PENDING Cytomegalovirus Ab,IGG,IGM Result Value Ref Range CMV IgG PENDING CMV IgM 0.2 <0.7 Arterial Blood Gas, POC Result Value Ref Range POC pH 7.511 (H) 7.350 - 7.450 POC pCO2 27.3 (L) 35.0 - 48.0 mm Hg POC PO2 87.1 83.0 - 108.0 mm Hg POC HCO3 21.9 21.0 - 28.0 mmol/L Positive Base Excess, Art 0.2 0.0 - 3.0 mmol/L POC O2 SAT 97.7 94.0 - 98.0 % O2 Delivery Device Room Air Jone Test POSITIVE Sample Site Right Radial Artery POCT Glucose Result Value Ref Range POC Glucose 126 (H) 74 - 100 mg/dL DIRECT ANTIGLOBULIN TEST Result Value Ref Range FELIPE, Polyspecific NEGATIVE IMAGING DATA: US LIVER SPLEEN Result Date: 01/22/2025 EXAMINATION: RIGHT UPPER QUADRANT ULTRASOUND 01/22/2025 8:30 pm COMPARISON: January 21, 2025 HISTORY: ORDERING SYSTEM PROVIDED HISTORY: Acute onset thrombocytopenia. Rule out hepatosplenomegaly TECHNOLOGIST PROVIDED HISTORY: Acute onset thrombocytopenia. Rule out hepatosplenomegaly FINDINGS: LIVER: The l iver demonstrates normal echogenicity without evidence of intrahepatic biliary ductal dilatation. Benign cysts measure up to 12 mm. BILIARY SYSTEM: Gallbladder is unremarkable without evidence of pericholecystic fluid, wall thickening or stones. Negative sonographic Tate's sign. Common bile duct is within normal limits measuring 4 mm. RIGHT KIDNEY: The right kidney is grossly unremarkable without evidence of hydronephrosis. The right kidney measures 11.1 cm in length. PANCREAS: Visualized portions of the pancreas are unremarkable. OTHER: No evidence of right upper quadrant ascites. The spleen is normal in size, measuring 9.2 cm. 1. Unremarkable right upper quadrant ultrasound. 2. Normal spleen. CT CHEST W CONTRAST Result Date: 01/22/2025 EXAMINATION: CT OF THE CHEST WITH CONTRAST 01/22/2025 7:55 pm TECHNIQUE: CT of the chest was performed with the administration of intravenous contrast. Multiplanar reformatted images are provided for review. Automated exposure control, iterative reconstruction, and/or weight based adjustment of the mA/kV was utilized to reduce the radiation dose to as low as reasonably achievable. COMPARISON: Correlation is made to chest radiograph dated January 22, 2025. No similar exam for comparison. HISTORY: ORDERING SYSTEM PROVIDED HISTORY: [facility] TECHNOLOGIST PROVIDED HISTORY: [facility] FINDINGS: Mediastinum: Thoracic aorta is atherosclerotic. Coronary artery atherosclerosis. Thoracic aorta and central portion of the pulmonary artery opacify normally. The ascending thoracic aorta is of normal caliber. Heart size is normal. There is no pericardial effusion. No evidence of hilar adenopathy. Enlarged subcarinal node measures 1.4 cm in the short axis dimension. There are coarsely calcified subcarinal and right hilar nodes. Lungs/pleura: Mild centrilobular emphysema. There are calcified granulomas in the right lung. Bandlike opacity in the left lower lobe is probably scarring or atelectasis. Central tracheobronchial airways are unremarkable. No bronchiectasis or bronchial wall thickening. No focal consolidation, pleural effusion, or pneumothorax. Symmetric bilateral apical scarring. Upper Abdomen: Hyperdense material layers in the dependent portion of the gallbladder lumen. Differential includes excreted contrast from prior CT of the abdomen and pelvis dated January 21, 2025, small stones, and sludge. Multiple hypodensities in the liver are probably cysts. Hepatic steatosis. No acute abnormality in the upper abdomen. Soft Tissues/Bones: No aggressive lytic or blastic bony lesion. 1. No evidence of malignancy in the chest. 2. Mild centrilobular emphysema. 3. Coronary artery atherosclerosis. 4. Hepatic steatosis. XR CHEST PORTABLE Result Date: 01/22/2025 EXAMINATION: ONE XRAY VIEW OF THE CHEST 01/22/2025 10:57 am COMPARISON: None. HISTORY: ORDERING SYSTEM PROVIDED HISTORY: To look for pnemonia TECHNOLOGIST PROVIDED HISTORY: To look for pnemonia FINDINGS: Lungs: Clear. Pleura: No effusion or pneumothorax. Cardiomediastinal silhouette: Normal contours. Bones: No acute bony findings. Soft tissues: Normal. No acute pulmonary findings. IMPRESSION: Primary Problem Thrombocytopenia Active Hospital Problems Diagnosis Date Noted S/P AAA repair [Z98.890, Z86.79] 01/23/2025 Thrombocytopenia [D69.6] 01/22/2025 Rash [R21] 01/22/2025 Acute severe thrombocytopenia Recent AAA repair Petechial rash Blisters RECOMMENDATIONS: I reviewed the labs/imaging available to me,outside records and discussed with the patient.I explained to the patient the nature of this problem. I explained the significance of these abnormalities and possible etiology and management optionsFollow-up on peripheral smear however given isolated thrombocytopenia ITP is high in the differential. Given recent AAA repair and presumed exposure to heparin continues reasonable to rule out HIT. 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 KIM sent Agree with Decadron 40 mg daily x 4 doses. Day #2 today. Status post 1 infusion of Gammagard 1 g/kg. Will give additional dose today Patient not a candidate for any anticoagulation With patient's such severe thrombocytopenia I still suspect ITP primary or secondary. transfuse platelet only if patient is bleeding Check H. pylori stool antigen test, has been ordered specimen needs to be collected Patient remains at risk of having spontaneous fatal bleed Fall precautions Closely monitor platelet count Discussed increased risk of bleeding as well as spontaneous brain bleeds with platelet count less than 10,000 Continue close monitoring. Will follow Discussed with patient and Nurse. Thank you for asking us to see this patient. Robel Mccormack MD This note is created with the assistance of a speech recognition program. While intending to generate a document that actually reflects the content of the visit, the document can still have some errors including those of syntax and sound a like substitutions which may escape proof reading. It such instances, actual meaning can be extrapolated by contextual diversion. * Mart Caro MD - 01/23/2025 7:30 AM EDT Images from the original note were not included. Critical Care -Progress Note Patient's name: Ambrosio Ramírez Patient's account/billing number: [id number] Patient's Date of : 1960 Age: 64 y.o. Date of Admission: 01/22/2025 3:32 AM Date of History and Physical Examination: 01/23/2025 Primary Care Physician: Davion Stephenson DO Attending Physician: Dr aMrt Caro Code Status: Full Code Chief complaint: No chief complaint on file. Today's Evaluation Subjective Evaluation: Patient denies any chest pain, nausea, vomiting, abdominal pain, change in bowel or bladder habits.Patient had snot from nose yesterday with some tinge of blood in it. Patient did not have any bowelmovements yet today. Patient did not see any visible bleeding anywhere. Fresh general blood in the dressing on the right groin access site. No active bleeding noted. HISTORY OF PRESENT ILLNESS: Ambrosio Ramírez is a 64 y.o. male with a past medical history significant for hyperlipidemia, chronic smoker and AAA 5.2 cm status post repair [facility] the access site in the right groin for his AAA repair. As per the patient, he was taking shower when he noted spots of blood on the dressing at the exit site. Patient got concerned and went to the [facility]. At the outlying facility, patient was hemodynamically stable. He underwent lab work which was essentially unremarkable except for thrombocy topenia with platelet count of 4000. Patient was found to have diffuse petechiae all over his body and 3 blood failed blisters in his mouth and 1 tongue blister. As per the patient, the symptoms started today. He denies any dark stool, blood in stool or hematuria. He denies being sick recently or fevers, rigors or chills. Patient denies any abdominal pain, nausea or vomiting. As per the patient,there has been no swelling or pressure-like sensation in his right groin as well. Patient was transferred to [facility] ICU for the concern of severe thrombocytopenia with petechiae but no major bleed. He also underwent CT abdomen pelvis with contrast which shows patent graft, 4.8 cm thrombosed infrarenal fusiform abdominal aorta with no leak. There were no findings of retroperitoneal hematoma as per the radiologist read. He CBC here shows WBC 8.3, hemoglobin 13.8, hematocrit 40.6 and platelet count of less than 2. His urinalysis is essentially unremarkable. Plan to consult hematology oncology for further workup of thrombocytopenia and need for IV steroids. PAST MEDICAL HISTORY: History reviewed. No pertinent past medical history. PAST SURGICAL HISTORY: No past surgical history on file. ALLERGIES: No Known Allergies HOME MEDS: : Prior to Admission medications Not on File SOCIAL HISTORY: TOBACCO: reports that he has quit smoking. His smoking use included cigarettes. He started smoking about 34 years ago. He has a 17.1 pack-year smoking history. He has never used smokeless tobacco. ETOH: reports no history of alcohol use. DRUGS: reports no history of drug use. FAMILY HISTORY: No family history on file. REVIEW OF SYSTEMS (ROS): Review of Systems - General ROS: Completed and except as mentioned above were negative Psychological ROS: Completed and except as mentioned above were negative Ophthalmic ROS: Completed and except as mentioned above were negative ENT ROS: Completed and except as mentioned above were negative Allergy and Immunology ROS: Completed and except as mentioned above were negative Hematological and Lymphatic ROS: Completed and except as mentioned above were negative Endocrine ROS: Completed and except as mentioned above were negative Breast ROS: Completed and except as mentioned above were negative Respiratory ROS: Completed and except as mentioned above were negative Cardiovascular ROS: Completed and except as mentioned above were negative Gastrointestinal ROS: Completed and except as mentioned above were negative Genito-Urinary ROS: Completed and except as mentioned above were negative Musculoskeletal ROS: Completed and except as mentioned above were negative Neurological ROS: Completed and except as mentioned above were negative Dermatological ROS: Completed and except as mentioned above were negative OBJECTIVE: VITAL SIGNS: BP 119/65 Pulse 72 Temp 97.9 ??F (36.6 ??C) (Oral) Resp 17 Ht 1.803 m (5' 11 ) Wt 66 kg (145 lb 9.6 oz) SpO2 100% BMI 20.31 kg/m?? Tmax over 24 hours: Temp (24hrs), Av.4 ??F (36.9 ??C), Min:97.9 ??F (36.6 ??C), Max:98.6 ??F (37 ??C) Patient Vitals for the past 8 hrs: BP Temp Temp src Pulse Resp SpO2 01/23/25 0400 119/65 -- Oral 72 17 100 % 01/23/25 0300 (!) 142/83 -- -- 84 19 100 % 01/23/25 0200 119/61 -- -- 64 14 98 % 01/23/25 0100 (!) 115/59 -- -- 66 14 100 % 01/23/25 0000 (!) 122/94 97.9 ??F (36.6 ??C) Oral 72 19 100 % Intake/Output Summary (Last 24 hours) at 01/23/2025 0758 Last data filed at 01/23/2025 0411 Gross per 24 hour Intake 1343.08 ml Output 1050 ml Net 293.08 ml Date 01/23/25 0000 - 01/23/25 2359 Shift [id number] [id number] 0138-4560 24 Hour Total INTAKE I.V.(mL/kg) 1295.5(19.6) 1295.5(19.6) IV Piggyback(mL/kg) 47.5(0.7) 47.5(0.7) Shift Total(mL/kg) 1343.1(20.3) 1343.1(20.3) OUTPUT Urine(mL/kg/hr) 650 650 Shift Total(mL/kg) 650(9.8) 650(9.8) Weight (kg) 66 66 66 66 Wt Readings from Last 3 Encounters: 01/22/25 66 kg (145 lb 9.6 oz) Body mass index is 20.31 kg/m??. PHYSICAL EXAM: Constitutional: No acute distress HEENT: NC/AT, PERRL, no congestion or rhinorrhea. Ecchymosis in oral cavity. Neck: Supple, symmetrical, trachea midline, no adenopathy, no JVD Respiratory: Clear to auscultation, no wheezes, rales, rhonchi Cardiovascular: Regular rate and rhythm, normal S1, S2, no murmur Abdomen: Soft, nontender, nondistended, no masses or organomegaly Extremities: No pedal edema, no clubbing or cyanosis. Petechial spots lower extremities. Neuro: A&O x4, moving all four extremities, strength and sensation intact. MEDICATIONS: Scheduled Meds: sodium chloride flush 5-40 mL IntraVENous 2 times per day pantoprazole (PROTONIX) 40 mg in sodium chloride (PF) 0.9 % 10 mL injection 40 mg IntraVENous Daily dexAMETHasone 40 mg IntraVENous Q24H Continuous Infusions: sodium chloride PRN Meds: sodium chloride flush, 5-40 mL, PRN sodium chloride, , PRN potassium chloride, 20 mEq, PRN Or potassium chloride, 10 mEq, PRN magnesium sulfate, 2,000 mg, PRN ondansetron, 4 mg, Q8H PRN Or ondansetron, 4 mg, Q6H PRN polyethylene glycol, 17 g, Daily PRN acetaminophen, 650 mg, Q6H PRN Or acetaminophen, 650 mg, Q6H PRN labetalol, 10 mg, Q4H PRN albuterol, 2.5 mg, Q4H PRN ABGs: No results found for: PHART , PH , [id number] , PCO2 , PO2ART , PO2 , [id number] , HCO3 , BEART , BE , THGBART , THB , [id number] , [id number] , O2SAT , FIO2 DATA: Complete Blood Count: Recent Labs 01/22/25 0934 01/22/25 1741 01/23/25 0402 WBC 7.2 5.1 7.5 RBC 4.67 4.87 4.12* HGB 13.4 13.9 11.8* HCT 40.9 42.8 36.1* MCV 87.6 87.9 87.6 MCH 28.7 28.5 28.6 MCHC 32.8 32.5 32.7 RDW 12.9 13.0 12.8 PLT See Reflexed IPF Result See Reflexed IPF Result See Reflexed IPF Result Last 3 Blood Glucose: Recent Labs 01/22/25 0418 01/22/25 0934 01/23/25 0402 GLUCOSE 112* 111* 88 PT/INR: Lab Results Component Value Date/Time PROTIME 14.2 01/22/2025 04:07 AM INR 1.1 01/22/2025 04:07 AM PTT: Lab Results Component Value Date/Time APTT 66.5 01/22/2025 04:07 AM Comprehensive Metabolic Profile: Recent Labs 01/22/25 0418 01/22/25 0934 01/23/25 0402 NA 136 135* 133* K 3.9 3.9 3.7 CL 101 101 102 CO2 20 19* 19* BUN 13 13 20 CREATININE 0.6* 0.6* 0.6* GLUCOSE 112* 111* 88 CALCIUM 9.2 9.3 8.7 BILITOT 0.5 -- -- ALKPHOS 84 -- -- AST 28 -- -- ALT 36 -- -- Magnesium: No results found for: MG Phosphorus: No results found for: PHOS Ionized Calcium: No results found for: CAION Urinalysis: Lab Results Component Value Date/Time NITRU NEGATIVE 01/22/2025 04:25 AM COLORU Yellow 01/22/2025 04:25 AM PHUR 5.5 01/22/2025 04:25 AM WBCUA None 01/22/2025 04:25 AM RBCUA 10 TO 20 01/22/2025 04:25 AM BACTERIA None 01/22/2025 04:25 AM LEUKOCYTESUR NEGATIVE 01/22/2025 04:25 AM UROBILINOGEN Normal 01/22/2025 04:25 AM BILIRUBINUR NEGATIVE 01/22/2025 04:25 AM GLUCOSEU NEGATIVE 01/22/2025 04:25 AM KETUA NEGATIVE 01/22/2025 04:25 AM HgBA1c: No results found for: LABA1C TSH: Lab Results Component Value Date/Time TSH 1.24 01/22/2025 04:18 AM Lactic Acid: No results found for: LACTA Troponin: No results for input(s): TROPONINI in the last 72 hours. Radiological imaging US LIVER SPLEEN Result Date: 01/22/2025 EXAMINATION: RIGHT UPPER QUADRANT ULTRASOUND 01/22/2025 8:30 pm COMPARISON: January 21, 2025 HISTORY: ORDERING SYSTEM PROVIDED HISTORY: Acute onset thrombocytopenia. Rule out hepatosplenomegaly TECHNOLOGIST PROVIDED HISTORY: Acute onset thrombocytopenia. Rule out hepatosplenomegaly FINDINGS: LIVER: The l iver demonstrates normal echogenicity without evidence of intrahepatic biliary ductal dilatation. Benign cysts measure up to 12 mm. BILIARY SYSTEM: Gallbladder is unremarkable without evidence of pericholecystic fluid, wall thickening or stones. Negative sonographic Tate's sign. Common bile duct is within normal limits measuring 4 mm. RIGHT KIDNEY: The right kidney is grossly unremarkable without evidence of hydronephrosis. The right kidney measures 11.1 cm in length. PANCREAS: Visualized portions of the pancreas are unremarkable. OTHER: No evidence of right upper quadrant ascites. The spleen is normal in size, measuring 9.2 cm. 1. Unremarkable right upper quadrant ultrasound. 2. Normal spleen. CT CHEST W CONTRAST Result Date: 01/22/2025 EXAMINATION: CT OF THE CHEST WITH CONTRAST 01/22/2025 7:55 pm TECHNIQUE: CT of the chest was performed with the administration of intravenous contrast. Multiplanar reformatted images are provided for review. Automated exposure control, iterative reconstruction, and/or weight based adjustment of the mA/kV was utilized to reduce the radiation dose to as low as reasonably achievable. COMPARISON: Correlation is made to chest radiograph dated January 22, 2025. No similar exam for comparison. HISTORY: ORDERING SYSTEM PROVIDED HISTORY: [facility] TECHNOLOGIST PROVIDED HISTORY: [facility] FINDINGS: Mediastinum: Thoracic aorta is atherosclerotic. Coronary artery atherosclerosis. Thoracic aorta and central portion of the pulmonary artery opacify normally. The ascending thoracic aorta is of normal caliber. Heart size is normal. There is no pericardial effusion. No evidence of hilar adenopathy. Enlarged subcarinal node measures 1.4 cm in the short axis dimension. There are coarsely calcified subcarinal and right hilar nodes. Lungs/pleura: Mild centrilobular emphysema. There are calcified granulomas in the right lung. Bandlike opacity in the left lower lobe is probably scarring or atelectasis. Central tracheobronchial airways are unremarkable. No bronchiectasis or bronchial wall thickening. No focal consolidation, pleural effusion, or pneumothorax. Symmetric bilateral apical scarring. Upper Abdomen: Hyperdense material layers in the dependent portion of the gallbladder lumen. Differential includes excreted contrast from prior CT of the abdomen and pelvis dated January 21, 2025, small stones, and sludge. Multiple hypodensities in the liver are probably cysts. Hepatic steatosis. No acute abnormality in the upper abdomen. Soft Tissues/Bones: No aggressive lytic or blastic bony lesion. 1. No evidence of malignancy in the chest. 2. Mild centrilobular emphysema. 3. Coronary artery atherosclerosis. 4. Hepatic steatosis. XR CHEST PORTABLE Result Date: 01/22/2025 EXAMINATION: ONE XRAY VIEW OF THE CHEST 01/22/2025 10:57 am COMPARISON: None. HISTORY: ORDERING SYSTEM PROVIDED HISTORY: To look for pnemonia TECHNOLOGIST PROVIDED HISTORY: To look for pnemonia FINDINGS: Lungs: Clear. Pleura: No effusion or pneumothorax. Cardiomediastinal silhouette: Normal contours. Bones: No acute bony findings. Soft tissues: Normal. No acute pulmonary findings. ASSESSMENT: Principal Problem: Thrombocytopenia Active Problems: Rash S/P AAA repair Resolved Problems: * No resolved hospital problems. * Patient is a 64-year-old male with past medical history significant for hyperlipidemia presents to the hospital with bleeding spot from right groin access site after elective AAA repair, ecchymosis in oral cavity and found to have severe acute thrombocytopenia. 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 PLAN: PLAN/MEDICAL DECISION MAKING: NEUROLOGIC: Currently AO x 4. Neurochecks per protocol. Patient has new neurological findings, get CT head without contrast immediately. CARDIOVASCULAR: BP Range: Systolic (24hrs), Av , Min:98 , Max:145 Diastolic (24hrs), Av, Min:58, Max:94 Pulse Range: Pulse Av Min: 64 Max: 90 Patient currently hemodynamically stable. Blood pressure monitoring Goal MAP greater than 65. PULMONARY: Respiration Range: Resp Av.2 Min: 13 Max: 27 Current Pulse Ox: SpO2: 100 % 24HR Pulse Ox Range: SpO2 Av % Min: 97 % Max: 100 % Patient currently saturating well on room air. CT chest did not show any active process. RENAL/FLUID/ELECTROLYTE: Monitor BMP and urine output. GI/NUTRITION: ADULT DIET; Regular Bowel regimen as needed. ID: Tmax: Temp (24hrs), Av.4 ??F (36.9 ??C), Min:97.9 ??F (36.6 ??C), Max:98.6 ??F (37 ??C) Temperature Range: Temp: 97.9 ??F (36.6 ??C) Temp Av.4 ??F (36.9 ??C) Min: 97.9 ??F (36.6 ??C)Max: 98.6 ??F (37 ??C) - WBC Lab Results Component Value Date WBC 7.5 01/23/2025 Currently no signs of infection. HEME: Recent Labs 01/22/25 0934 01/22/25 1741 01/23/25 0402 HGB 13.4 13.9 11.8* Severe acute thrombocytopenia. 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 Monitor CBC. On dexamethasone 40 mg once daily for 4 days. Hematology on board. Appreciate recommendations. Patient received 1 dose of IVIG 01/22/2025. ENDOCRINE: POCT glucose monitoring - Continue to monitor blood glucose, goal <180 - Most recent BGL is Recent Labs 01/22/25 0418 01/22/25 0934 01/23/25 0402 GLUCOSE 112* 111* 88 OTHER: - PT/OT/ST - Code Status: Full Code PROPHYLAXIS: - Stress ulcer: PPI - DVT: SCDs HOME MEDICATIONS RECONCILED: [] No [x] Yes CONSULTATION NEEDED: [] No [x] Yes: Hematology Pérez Flynn MD Department of Internal Medicine/ Critical care [place], [place] 01/23/2025 7:58 AM The critical care team assigned to the patient will be following up the patient in the intensive care unit. I have discussed the current plan with the critical care attending.The above mentioned assessment and plan will be reviewed again in detail by the critical care attending at bedside, and can be further changed or modified accordingly by the attending physician. Attending Physician Statement I have discussed the care of Ambrosio Ramírez, including pertinent history and exam findings with the resident. I have reviewed the elliott elements of all parts of the encounter with the resident. I have seen and examined the patient with the resident. I agree with the assessment and plan and status of the problem list as documented. Patient had received 1 dose of IVIG yesterday and he had received 1 dose of Decadron continue with Decadron daily. Platelets still less than 2. Although heparin played antibodies positive but the contribution of heparin platelet antibody to thrombocytopenia with such a low platelet may not be the sole cause for thrombocytopenia We will continue to monitor for signs of bleeding currently no active bleeding. Discussed with nursing staff, treatment and plan discussed. Discussed with respiratory therapist. Total critical care time caring for this patient with life threatening, unstable organ failure, including direct patient contact, management of life support systems, review of data including imaging and labs, discussions with other team members and physicians at least 35 Min so far today, excludingprocedures. This note is created with the assistance of a speech recognition program. While intent was to generate a document that actually reflects the content of the visit, the document can still have some errors including those of syntax and sound-alike substitutions which may escape proof reading. It such instances, actual meaning can be extrapolated by contextual diversion. Mart Caro MD 01/23/2025 1:01 PM * Juwan Mac - 01/22/2025 11:03 PM EDT Advance Care Planning Advance Care Planning Inpatient Note Spiritual Care Department Today's Date: 01/22/2025 Unit: [facility] Received request from patient. Upon review of chart and communication with care team, patient's decision making abilities are not in question.. Patient was/were present in the room during visit. Goals of ACP Conversation: Discuss advance care planning documents Health Care Decision Makers: Steph Torres/ Sister in Law [facility] [place], [place] [address] Summary: Completed New Documents spoke to Health care Agent on phone. Advance Care Planning Documents (Patient Wishes): Healthcare Power of National Sales Representative/Advance Directive Appointment of Health Care Agent Assessment: Health Care Agent consents to patient's wishes. Interventions: Assisted in the completion of documents according to patient's wishes at this time Care Preferences Communicated: No Outcomes/Plan: New advance directive completed. documented in this encounter Plan of Treatment Upcoming Encounters Date Type Department Care Team (Late st Contact Info) Description 03/09/2025 2:45 PM EDT Office Visit [facility] Part of [address] [address] Darryl Hendrix MD [address] [place] [address] F/U hospital stay low platelets Scheduled Orders Name Type Priority Associated Diagnoses Orde r Schedule CBC with Auto Differential Lab Routine H. pylori infection S/P AAA repair Expected: 02/03/2025 (Approximate), Expires: 01/27/2026 documented as of this encounter Procedures Procedure Name Priority Date/Time Associated Diagnosis Comments BASIC METABOLIC PANEL W/ REFLEX TO MG FOR LOW K Routine 01/27/2025 6:04 AM EDT CBC WITH AUTO DIFFERENTIAL Routine 01/27/2025 6:04 AM EDT H. PYLORI ANTIGEN Routine 01/26/2025 9:1 7 AM EDT BASIC METABOLIC PANEL W/ REFLEX TO MG FOR LOW K Routine 01/26/2025 3:07 AM EDT CBC WITH AUTO DIFFERENTIAL Routine 01/26/2025 3:07 AM EDT BASIC METABOLIC PANEL W/ REFLEX TO MG FOR LOW K Routine 01/25/2025 6:32 AM EDT CBC WITH AUTO DIFFERENTIAL Routine 01/25/2025 6:32 AM EDT CBC WITH AUTO DIFFERENTIAL Routine 01/24/2025 3:16 PM EDT BASIC METABOLIC PANEL W/ REFLEX TO MG FOR LOW K Routine 01/24/2025 3:32 AM EDT CBC WITH AUTO DIFFERENTIAL Routine 01/24/2025 3:32 AM EDT HEPATIC FUNCTION PANEL Routine 3:32 AM EDT CBC WITH AUTO DIFFERENTIAL Routine 01/23/2025 6:12 PM EDT PREVIOUS SPECIMEN Routine 01/23/2025 10: 21 AM EDT SEROTONIN REL ASSAY Routine 01/23/2025 1 0:21 AM EDT IMMUNOTYPING, SERUM Routine 01/23/2025 9 :02 AM EDT VITAMIN B12 & FOLATE Routine 01/23/2025 9:02 AM EDT CYTOMEGALOVIRUS ANTIBODY, IGG,IGM Routine 01/23/2025 9:02 AM EDT FEDERICO-HERRING PANEL Routine 01/23/2025 9: 02 AM EDT [id number] ACTIVITY Routine 01/23/2025 9:0 2 AM EDT ELECTROPHORESIS PROTEIN, SERUM Routine 01/23/2025 9:02 AM EDT BASIC METABOLIC PANEL W/ REFLEX TO MG FOR LOW K Routine 01/23/2025 4:02 AM EDT CBC WITH AUTO DIFFERENTIAL Routine 01/23/2025 4:02 AM EDT US LIVER SPLEEN Routine 01/22/2025 9:[address] CHEST W CONTRAST Routine 01/22/2025 8 :03 PM EDT CBC WITH AUTO DIFFERENTIAL Routine 01/22/2025 5:41 PM EDT TEG GLOBAL HEMOSTASIS WITH LYSIS Routine 01/22/2025 12:17 PM EDT HEPATITIS PANEL, ACUTE Routine 12:17 PM EDT CULTURE, BLOOD 1 STAT 01/22/2025 12:1 3 PM EDT CULTURE, BLOOD 1 STAT 01/22/2025 12:0 7 PM EDT XR CHEST PORTABLE Routine 01/22/2025 10: 50 AM EDT ARTERIAL BLOOD GAS, POC Routine 01/22/2025 10:30 AM EDT POCT GLUCOSE Routine 01/22/2025 10:30 AM EDT ONOFRE PROFILE Routine 01/22/2025 9:34 AM EDT ONOFRE SCREEN WITH REFLEX Routine 9:34 AM EDT PROCALCITONIN Routine 01/22/2025 9:34 AM EDT BASIC METABOLIC PANEL W/ REFLEX TO MG FOR LOW K Routine 01/22/2025 9:34 AM EDT CBC WITH AUTO DIFFERENTIAL Routine 01/22/2025 9:34 AM EDT HEPARIN-INDUCED PLATELET ANTIBODY Routine 01/22/2025 9:34 AM EDT FIBRIN SPLIT PRODUCTS Routine 01/22/2025 9:34 AM EDT HIV SCREEN Routine 01/22/2025 9:34 AM EDT FIBRINOGEN Routine 01/22/2025 9:34 AM EDT D-DIMER, QUANTITATIVE Routine 01/22/2025 9:34 AM EDT DIRECT ANTIGLOBULIN TEST Routine 01/22/2025 9:34 AM EDT MRSA DNA PROBE, NASAL [employer] Label Print 01/22/2025 4:56 AM EDT URINALYSIS WITH REFLEX TO CULTURE [employer] Label Print 01/22/2025 4:25 AM EDT MICROSCOPIC URINALYSIS Routine 4:25 AM EDT MYOGLOBIN, BLOOD Routine 01/22/2025 4:18 AM EDT TSH REFLEX TO FT4 Routine 01/22/2025 4:1 8 AM EDT BASIC METABOLIC PANEL W/ REFLEX TO MG FOR LOW K Routine 01/22/2025 4:18 AM EDT SURGICAL PATHOLOGY REPORT Routine 01/22/2025 4:18 AM EDT SEDIMENTATION RATE Routine 01/22/2025 4: 18 AM EDT CBC WITH AUTO DIFFERENTIAL Routine 01/22/2025 4:18 AM EDT PERIPHERAL BLOOD SMEAR, PATH REVIEW Routine 01/22/2025 4:18 AM EDT RETICULOCYTES Routine 01/22/2025 4:18 AM EDT C-REACTIVE PROTEIN Routine 01/22/2025 4: 18 AM EDT LACTATE DEHYDROGENASE Routine 01/22/2025 4:18 AM EDT LACTIC ACID Routine 01/22/2025 4:18 AM EDT HAPTOGLOBIN Routine 01/22/2025 4:18 AM EDT CK Routine 01/22/2025 4:18 AM EDT HEPATIC FUNCTION PANEL Routine 4:18 AM EDT APTT Routine 01/22/2025 4:07 AM EDT PROTIME-INR Routine 01/22/2025 4:07 AM EDT documented in this encounter Results * (ABNORMAL) CBC with Auto Differential (01/27/2025 6:04 AM EDT) WBC 7.5 3.5 - 11.3 k/uL 01/27/2025 6:04 AM EDT [facility] RBC 3.77(L) 4.21 - 5.77 m/uL 01/27/2025 6:04 AM EDT [facility] Hemoglobin 10.9(L) 13.0 - 17.0 g/dL 01/27/2025 6:04 AM EDT [facility] Hematocrit 33.2(L) 40.7 - 50.3 % 01/27/2025 6:04 AM EDT [facility] MCV 88.1 82.6 - 102.9 fL 01/27/2025 6:04 AM EDT [facility] MCH 28.9 25.2 - 33.5 pg 01/27/2025 6:04 AM EDT [facility] MCHC 32.8 28.4 - 34.8 g/dL 01/27/2025 6:04 AM EDT [facility] RDW 13.3 11.8 - 14.4 % 01/27/2025 6:04 AM EDT [facility] Platelets See Reflexed IPF Result 138 - 453 k/uL 01/27/2025 6:04 AM EDT [facility] Platelet, Fluorescence 29(L) 138 - 453 k/uL 01/27/2025 6:04 AM EDT [facility] Platelet, Immature Fraction 14.5(H) 1.1 - 10.3 % 01/27/2025 6:04 AM EDT [facility] NRBC Automated 0.0 0.0 per 100 WBC 01/27/2025 6:04 AM EDT [facility] Neutrophils % 61 36 - 65 % 01/27/2025 6:04 AM EDT [facility] Lymphocytes % 25 24 - 43 % 01/27/2025 6:04 AM EDT [facility] Monocytes % 11 3 - 12 % 01/27/2025 6:04 AM EDT [facility] Eosinophils % 1 1 - 4 % 01/27/2025 6:04 AM EDT [facility] Basophils % 0 0 - 2 % 01/27/2025 6:04 AM EDT [facility] Immature Granulocytes % 1(H) 0 % 01/27/2025 6:04 AM EDT [facility] Neutrophils Absolute 4.59 1.50 - 8.10 k/uL 01/27/2025 6:04 AM EDT [facility] Lymphocytes Absolute 1.83 1.10 - 3.70 k/uL 01/27/2025 6:04 AM EDT [email or web address] Monocytes Absolute 0.85 0.10 - 1.20 k/uL 01/27/2025 6:04 AM EDT [email or web address] Eosinophils Absolute 0.08 0.00 - 0.44 k/uL 01/27/2025 6:04 AM EDT [facility] Basophils Absolute <0.03 0.00 - 0.20 k/uL 01/27/2025 6:04 AM EDT [facility] Immature Granulocytes Absolute 0.10 0.00 - 0.30 k/uL 01/27/2025 6:04 AM EDT [facility] Blood BLOOD SPECIMEN / Unknown 01/27/2025 6:04 AM EDT 01/27/2025 6:26 AM EDT us Milind Corley MD HEMATOLOGY ORDERABLES Final Res ult [facility] [address] [phone] * (ABNORMAL) Basic Metabolic Panel w/ Reflex to MG (01/27/2025 6:04 AM EDT) Sodium 131(L) 136 - 145 mmol/L 01/27/2025 6:04 AM EDT [facility] Potassium 4.3 3.7 - 5.3 mmol/L 01/27/2025 6:04 AM EDT [facility] Comment: Specimen hemolysis has exceeded the interference as defined by Aidan. Value may be falsely increased. Suggest recollection if clinically indicated. Chloride 102 98 - 107 mmol/L 01/27/2025 6:04 AM EDT [facility] CO2 21 20 - 31 mmol/L 01/27/2025 6:04 AM EDT [facility] Anion Gap 8(L) 9 - 16 mmol/L 01/27/2025 6:04 AM EDT [facility] Glucose 81 74 - 99 mg/dL 01/27/2025 6:04 AM EDT [facility] BUN 15 8 - 23 mg/dL 01/27/2025 6:04 AM EDT [facility] Creatinine 0.7 0.7 - 1.2 mg/dL 01/27/2025 6:04 AM EDT [facility] Est, Glom Filt Rate >90 >60 mL/min/1. 73m2 01/27/2025 6:04 AM EDT [facility] Comment: These results are not intended for use in patients <18 years of age. eGFR results are calculated without a race factor using the 2020 CKD-EPI equation. Careful clinical correlation is recommended, particularly when comparing to results calculated using previous equations. The CKD-EPI equation is less accurate in patients with extremes of muscle mass, extra-renal metabolism of creatine, excessive creatine ingestion, or following therapy that affects renal tubular secretion. Calcium 8.2(L) 8.6 - 10.4 mg/dL 01/27/2025 6:04 AM EDT [facility] Blood BLOOD SPECIMEN / Unknown 01/27/2025 6:04 AM EDT 01/27/2025 6:26 AM EDT us Milind Corley MD CHEMISTRY ORDERABLES Final Resu lt [facility] [address] [place] [address], [facility] [phone] * (ABNORMAL) H. pylori antigen (01/26/2025 9:17 AM EDT) Pathologist [facility] [place] Specimen Description .FECES 01/26/2025 9:17 AM EDT [facility] Direct Exam POSITIVE( A) 01/26/2025 9:17 AM EDT [facility] STOOL SPECIMEN / Unknown 01/26/2025 9:17 AM EDT 01/26/2025 9:17 AM EDT us Melisa Mejia MD BODY FLUIDS AND STOOLS ORD ERABLES Final Result Performing Organization Address City/[facility]/ZIP Co de Phone Number [facility] [address] [place] [address], [facility] [phone] * (ABNORMAL) CBC with Auto Differential (01/26/2025 3:07 AM EDT) WBC 9.9 3.5 - 11.3 k/uL 01/26/2025 3:07 AM [employer] [employer] RBC 3.42(L) 4.21 - 5.77 m/uL 01/26/2025 3:07 AM [facility]DE[facility] Hemoglobin 9.8(L) 13.0 - 17.0 g/dL 01/26/2025 3:07 AM EDT [facility] Hematocrit 30.3(L) 40.7 - 50.3 % 01/26/2025 3:07 AM EDT [facility] MCV 88.6 82.6 - 102.9 fL 01/26/2025 3:07 AM EDT [facility] MCH 28.7 25.2 - 33.5 pg 01/26/2025 3:07 AM EDT [facility] MCHC 32.3 28.4 - 34.8 g/dL 01/26/2025 3:07 AM EDT [facility] RDW 13.0 11.8 - 14.4 % 01/26/2025 3:07 AM [employer] [employer] Platelets See Reflexed IPF Result 138 - 453 k/uL 01/26/2025 3:07 AM [facility] [employer] Platelet, Fluorescence 17(LL) 138 - 453 k/uL 01/26/2025 3:07 AM [facility] [employer] Platelet, Immature Fraction 26.4(H) 1.1 - 10.3 % 01/26/2025 3:07 AM [facility] [employer] [facility] NRBC Automated 0.3(H) 0.0 per 100 WBC 01/26/2025 3:07 AM EDT [facility] Neutrophils % 70(H) 36 - 65 % 01/26/2025 3:07 AM EDT [facility] Lymphocytes % 20(L) 24 - 43 % 01/26/2025 3:07 AM EDT [facility] Monocytes % 9 3 - 12 % 01/26/2025 3:07 AM EDT [facility] Eosinophils % 0(L) 1 - 4 % 01/26/2025 3:07 AM EDT [facility] Basophils % 0 0 - 2 % 01/26/2025 3:07 AM EDT [facility] Immature Granulocytes % 1(H) 0 % 01/26/2025 3:07 AM EDT [facility] Neutrophils Absolute 6.92 1.50 - 8.10 k/uL 01/26/2025 3:07 AM EDT [facility] Lymphocytes Absolute 1.98 1.10 - 3.70 k/uL 01/26/2025 3:07 AM EDT [facility] Monocytes Absolute 0.84 0.10 - 1.20 k/uL 01/26/2025 3:07 AM EDT [facility] Eosinophils Absolute <0.03 0.00 - 0.44 k/uL 01/26/2025 3:07 AM EDT [facility] Basophils Absolute <0.03 0.00 - 0.20 k/uL 01/26/2025 3:07 AM EDT [facility] Immature Granulocytes Absolute 0.09 0.00 - 0.30 k/uL 01/26/2025 3:07 AM EDT [facility] Blood BLOOD SPECIMEN / Unknown 01/26/2025 3:07 AM EDT 01/26/2025 3:20 AM EDT Milind Corley MD HEMATOLOGY ORDERABLES Final Res ult [facility] [address] [phone] * (ABNORMAL) Basic Metabolic Panel w/ Reflex to MG (01/26/2025 3:07 AM EDT) Sodium 132(L) 136 - 145 mmol/L 01/26/2025 3:07 AM EDT [facility] Potassium 4.0 3.7 - 5.3 mmol/L 01/26/2025 3:07 AM EDT [facility] Chloride 103 98 - 107 mmol/L 01/26/2025 3:07 AM EDT [facility] CO2 21 20 - 31 mmol/L 01/26/2025 3:07 AM EDT [facility] Anion Gap 8(L) 9 - 16 mmol/L 01/26/2025 3:07 AM EDT [facility] Glucose 95 74 - 99 mg/dL 01/26/2025 3:07 AM EDT [facility] BUN 17 8 - 23 mg/dL 01/26/2025 3:07 AM EDT [facility] Creatinine 0.6(L) 0.7 - 1.2 mg/dL 01/26/2025 3:07 AM EDT [facility] Est, Glom Filt Rate >90 >60 mL/min/1. 73m2 01/26/2025 3:07 AM EDT [facility] Comment: These results are not intended for use in patients <18 years of age. eGFR results are calculated without a race factor using the 2020 CKD-EPI equation. Careful clinical correlation is recommended, particularly when comparing to results calculated using previous equations. The CKD-EPI equation is less accurate in patients with extremes of muscle mass, extra-renal metabolism of creatine, excessive creatine ingestion, or following therapy that affects renal tubular secretion. Calcium 8.3(L) 8.6 - 10.4 mg/dL 01/26/2025 3:07 AM EDT [facility] Blood BLOOD SPECIMEN / Unknown 01/26/2025 3:07 AM EDT 01/26/2025 3:20 AM EDT Milind Corley MD CHEMISTRY ORDERABLES Final Resu lt [facility] [address] [place] [address], [facility] [phone] * (ABNORMAL) CBC with Auto Differential (01/25/2025 6:32 AM EDT) WBC 9.5 3.5 - 11.3 k/uL 01/25/2025 6:32 AM EDT [facility] RBC 3.63(L) 4.21 - 5.77 m/uL 01/25/2025 6:32 AM EDT [facility] Hemoglobin 10.4(L) 13.0 - 17.0 g/dL 01/25/2025 6:32 AM EDT [facility] Hematocrit 32.2(L) 40.7 - 50.3 % 01/25/2025 6:32 AM EDT [facility] MCV 88.7 82.6 - 102.9 fL 01/25/2025 6:32 AM EDT [facility] MCH 28.7 25.2 - 33.5 pg 01/25/2025 6:32 AM EDT [facility] MCHC 32.3 28.4 - 34.8 g/dL 01/25/2025 6:32 AM EDT [facility] RDW 13.1 11.8 - 14.4 % 01/25/2025 6:32 AM EDT [facility] Platelets See Reflexed IPF Result 138 - 453 k/uL 01/25/2025 6:32 AM EDT [facility] Platelet, Fluorescence 6(LL) 138 - 453 k/uL 01/25/2025 6:32 AM EDT [facility] Platelet, Immature Fraction 22.8(H) 1.1 - 10.3 % 01/25/2025 6:32 AM [employer] [facility] NRBC Automated 0.0 0.0 per 100 WBC 01/25/2025 6:32 AM EDT [facility] Neutrophils % 62 36 - 65 % 01/25/2025 6:32 AM EDT [facility] Lymphocytes % 28 24 - 43 % 01/25/2025 6:32 AM EDT [facility] Monocytes % 10 3 - 12 % 01/25/2025 6:32 AM EDT [facility] Eosinophils % 0(L) 1 - 4 % 01/25/2025 6:32 AM EDT [facility] Basophils % 0 0 - 2 % 01/25/2025 6:32 AM [employer] [facility] Immature Granulocytes % 1(H) 0 % 01/25/2025 6:32 AM [employer] [facility] Neutrophils Absolute 5.85 1.50 - 8.10 k/uL 01/25/2025 6:32 AM [employer] Lymphocytes Absolute 2.62 1.10 - 3.70 k/uL 01/25/2025 6:32 AM EDT [facility] Monocytes Absolute 0.91 0.10 - 1.20 k/uL 01/25/2025 6:32 AM EDT [facility] Eosinophils Absolute <0.03 0.00 - 0.44 k/uL 01/25/2025 6:32 AM EDT [facility] Basophils Absolute 0.03 0.00 - 0.20 k/uL 01/25/2025 6:32 AM [employer] Immature Granulocytes Absolute 0.05 0.00 - 0.30 k/uL 01/25/2025 6:32 AM [employer] [facility] BLOOD SPECIMEN / Unknown 01/25/2025 6:32 AM EDT 01/25/2025 7:07 AM EDT us Milind Corley MD HEMATOLOGY ORDERABLES Final Res ult [facility] [address] [place] [id number], [facility] [phone] * (ABNORMAL) Basic Metabolic Panel w/ Reflex to MG (01/25/2025 6:32 AM EDT) Sodium 134(L) 136 - 145 mmol/L 01/25/2025 6:32 AM EDT [facility] Potassium 4.0 3.7 - 5.3 mmol/L 01/25/2025 6:32 AM EDT [facility] Chloride 101 98 - 107 mmol/L 01/25/2025 6:32 AM EDT [facility] CO2 22 20 - 31 mmol/L 01/25/2025 6:32 AM EDT [facility] Anion Gap 11 9 - 16 mmol/L 01/25/2025 6:32 AM EDT [facility] Glucose 87 74 - 99 mg/dL 01/25/2025 6:32 AM EDT [facility] BUN 16 8 - 23 mg/dL 01/25/2025 6:32 AM EDT [facility] Creatinine 0.7 0.7 - 1.2 mg/dL 01/25/2025 6:32 AM EDT [facility] Est, Glom Filt Rate >90 >60 mL/min/1. 73m2 01/25/2025 6:32 AM EDT [facility] Comment: These results are not intended for use in patients <18 years of age. eGFR results are calculated without a race factor using the 2020 CKD-EPI equation. Careful clinical correlation is recommended, particularly when comparing to results calculated using previous equations. The CKD-EPI equation is less accurate in patients with extremes of muscle mass, extra-renal metabolism of creatine, excessive creatine ingestion, or following therapy that affects renal tubular secretion. Calcium 8.7 8.6 - 10.4 mg/dL 01/25/2025 6:32 AM EDT [facility] Blood BLOOD SPECIMEN / Unknown 01/25/2025 6:32 AM EDT 01/25/2025 7:07 AM EDT us Milind Corley MD CHEMISTRY ORDERABLES Final Resu [place] [address], [facility] [phone] * (ABNORMAL) CBC with Auto Differential (01/24/2025 3:16 PM EDT) WBC 6.3 3.5 - 11.3 k/uL 01/24/2025 3:16 PM EDT [facility] RBC 3.72(L) 4.21 - 5.77 m/uL 01/24/2025 3:16 PM EDT [facility] Hemoglobin 10.7(L) 13.0 - 17.0 g/dL 01/24/2025 3:16 PM EDT [facility] Hematocrit 33.1(L) 40.7 - 50.3 % 01/24/2025 3:16 PM EDT [facility] MCV 89.0 82.6 - 102.9 fL 01/24/2025 3:16 PM EDT [facility] MCH 28.8 25.2 - 33.5 pg 01/24/2025 3:16 PM EDT [facility] MCHC 32.3 28.4 - 34.8 g/dL 01/24/2025 3:16 PM EDT [facility] RDW 12.9 11.8 - 14.4 % 01/24/2025 3:16 PM EDT [facility] Platelets See Reflexed IPF Result 138 - 453 k/uL 01/24/2025 3:16 PM EDT [facility] Platelet, Fluorescence 8(LL) 138 - 453 k/uL 01/24/2025 3:16 PM EDT [facility] Platelet, Immature Fraction 30.2(H) 1.1 - 10.3 % 01/24/2025 3:16 PM EDT [facility] NRBC Automated 0.0 0.0 per 100 WBC 01/24/2025 3:16 PM EDT [facility] Neutrophils % 85(H) 36 - 65 % 01/24/2025 3:16 PM EDT [facility] Lymphocytes % 12(L) 24 - 43 % 01/24/2025 3:16 PM EDT [facility] Monocytes % 2(L) 3 - 12 % 01/24/2025 3:16 PM EDT [facility] Eosinophils % 0(L) 1 - 4 % 01/24/2025 3:16 PM EDT [facility] Basophils % 0 0 - 2 % 01/24/2025 3:16 PM EDT [facility] Immature Granulocytes % 1(H) 0 % 01/24/2025 3:16 PM EDT [facility] Neutrophils Absolute 5.39 1.50 - 8.10 k/uL 01/24/2025 3:16 PM EDT [facility] Lymphocytes Absolute 0.78(L) 1.10 - 3.70 k/uL 01/24/2025 3:16 PM EDT [facility] Monocytes Absolute 0.11 0.10 - 1.20 k/uL 01/24/2025 3:16 PM EDT [facility] Eosinophils Absolute <0.03 0.00 - 0.44 k/uL 01/24/2025 3:16 PM EDT [facility] Basophils Absolute <0.03 0.00 - 0.20 k/uL 01/24/2025 3:16 PM EDT [facility] Immature Granulocytes Absolute 0.03 0.00 - 0.30 k/uL 01/24/2025 3:16 PM EDT [facility] Blood BLOOD SPECIMEN / Unknown 01/24/2025 3:16 PM EDT 01/24/2025 3:19 PM EDT Earlene Charles MD HEMATOLOGY ORDERABLES Final [facility] [address] [phone] * (ABNORMAL) Hepatic Function Panel (01/24/2025 3:32 AM EDT) Albumin 3.1(L) 3.5 - 5.2 g/dL 01/24/2025 3:32 AM EDT [facility] Alkaline Phosphatase 61 40 - 129 U/L 01/24/2025 3:32 AM EDT [facility] ALT 28 10 - 50 U/L 01/24/2025 3:32 AM EDT [facility] AST 24 10 - 50 U/L 01/24/2025 3:32 AM EDT [facility] Total Bilirubin 0.6 0.0 - 1.2 mg/dL 01/24/2025 3:32 AM EDT [facility] Bilirubin, Direct 0.1 0.0 - 0.2 mg/dL 01/24/2025 3:32 AM EDT [facility] Bilirubin, Indirect 0.5 0.0 - 1.0 mg/dL 01/24/2025 3:32 AM EDT [facility] [facility] Total Protein 9.5(H) 6.6 - 8.7 g/dL 01/24/2025 3:32 AM EDT [facility] Globulin 6.4 g/dL 01/24/2025 3:32 AM EDT [facility] Albumin/Globulin Ratio 0.5(L) 1.0 - 2.5 01/24/2025 3:32 AM EDT [facility] 01/24/2025 3:32 AM EDT 01/24/2025 3:52 AM EDT us Milind Corley MD CHEMISTRY ORDERABLES Final Resu lt [email or web address] [place] [address], [facility] [phone] * (ABNORMAL) CBC with Auto Differential (01/24/2025 3:32 AM EDT) WBC 8.6 3.5 - 11.3 k/uL 01/24/2025 3:32 AM EDT [facility] RBC 3.83(L) 4.21 - 5.77 m/uL 01/24/2025 3:32 AM EDT [facility] Hemoglobin 10.8(L) 13.0 - 17.0 g/dL 01/24/2025 3:32 AM EDT [facility] Hematocrit 34.8(L) 40.7 - 50.3 % 01/24/2025 3:32 AM EDT [facility] MCV 90.9 82.6 - 102.9 fL 01/24/2025 3:32 AM EDT [facility] MCH 28.2 25.2 - 33.5 pg 01/24/2025 3:32 AM EDT [facility] MCHC 31.0 28.4 - 34.8 g/dL 01/24/2025 3:32 AM EDT [facility] RDW 13.0 11.8 - 14.4 % 01/24/2025 3:32 AM EDT [facility] Platelets See Reflexed IPF Result 138 - 453 k/uL 01/24/2025 3:32 AM EDT [facility] Platelet, Fluorescence 6(LL) 138 - 453 k/uL 01/24/2025 3:32 AM EDT [facility] Platelet, Immature Fraction 25.9(H) 1.1 - 10.3 % 01/24/2025 3:32 AM EDT [facility] NRBC Automated 0.0 0.0 per 100 WBC 01/24/2025 3:32 AM [employer] Neutrophils % 70(H) 36 - 65 % 01/24/2025 3:32 AM EDT [facility] Lymphocytes % 21(L) 24 - 43 % 01/24/2025 3:32 AM EDT [facility] Monocytes % 8 3 - 12 % 01/24/2025 3:32 AM EDT [facility] Eosinophils % 0(L) 1 - 4 % 01/24/2025 3:32 AM EDT [facility] Basophils % 0 0 - 2 % 01/24/2025 3:32 AM EDT [facility] Immature Granulocytes % 1(H) 0 % 01/24/2025 3:32 AM EDT [facility] Neutrophils Absolute 6.03 1.50 - 8.10 k/uL 01/24/2025 3:32 AM EDT [facility] Lymphocytes Absolute 1.79 1.10 - 3.70 k/uL 01/24/2025 3:32 AM EDT [facility] Monocytes Absolute 0.72 0.10 - 1.20 k/uL 01/24/2025 3:32 AM EDT [facility] Eosinophils Absolute <0.03 0.00 - 0.44 k/uL 01/24/2025 3:32 AM EDT [facility] Basophils Absolute 0.03 0.00 - 0.20 k/uL 01/24/2025 3:32 AM EDT [facility] Immature Granulocytes Absolute 0.05 0.00 - 0.30 k/uL 01/24/2025 3:32 AM EDT [facility] Blood BLOOD SPECIMEN / Unknown 01/24/2025 3:32 AM EDT 01/24/2025 3:52 AM EDT us Milind Corley MD HEMATOLOGY ORDERABLES Final Res ult [facility] [address] [place] [address], [facility] [phone] * (ABNORMAL) Basic Metabolic Panel w/ Reflex to MG (01/24/2025 3:32 AM EDT) Sodium 133(L) 136 - 145 mmol/L 01/24/2025 3:32 AM EDT [facility] Potassium 4.2 3.7 - 5.3 mmol/L 01/24/2025 3:32 AM EDT [facility] Comment: Specimen hemolysis has exceeded the interference as defined by Aidan. Value may be falsely increased. Suggest recollection if clinically indicated. Chloride 104 98 - 107 mmol/L 01/24/2025 3:32 AM EDT [facility] CO2 20 20 - 31 mmol/L 01/24/2025 3:32 AM EDT [facility] Anion Gap 9 9 - 16 mmol/L 01/24/2025 3:32 AM EDT [facility] Glucose 97 74 - 99 mg/dL 01/24/2025 3:32 AM EDT [facility] BUN 21 8 - 23 mg/dL 01/24/2025 3:32 AM EDT [facility] Creatinine 0.5(L) 0.7 - 1.2 mg/dL 01/24/2025 3:32 AM EDT [facility] Est, Glom Filt Rate >90 >60 mL/min/1. 73m2 01/24/2025 3:32 AM EDT [facility] Comment: These results are not intended for use in patients <18 years of age. eGFR results are calculated without a race factor using the 2020 CKD-EPI equation. Careful clinical correlation is recommended, particularly when comparing to results calculated using previous equations. The CKD-EPI equation is less accurate in patients with extremes of muscle mass, extra-renal metabolism of creatine, excessive creatine ingestion, or following therapy that affects renal tubular secretion. Calcium 8.6 8.6 - 10.4 mg/dL 01/24/2025 3:32 AM EDT [facility] Blood BLOOD SPECIMEN / Unknown 01/24/2025 3:32 AM EDT 01/24/2025 3:52 AM EDT us Milind Corley MD CHEMISTRY ORDERABLES Final Resu lt [facility] [address] [phone] * (ABNORMAL) CBC with Auto Differential (01/23/2025 6:12 PM EDT) WBC 6.2 3.5 - 11.3 k/uL 01/23/2025 6:12 PM EDT [facility] RBC 3.78(L) 4.21 - 5.77 m/uL 01/23/2025 6:12 PM EDT [facility] Hemoglobin 10.9(L) 13.0 - 17.0 g/dL 01/23/2025 6:12 PM EDT [facility] Hematocrit 33.6(L) 40.7 - 50.3 % 01/23/2025 6:12 PM EDT [facility] MCV 88.9 82.6 - 102.9 fL 01/23/2025 6:12 PM EDT [facility] MCH 28.8 25.2 - 33.5 pg 01/23/2025 6:12 PM EDT [facility] MCHC 32.4 28.4 - 34.8 g/dL 01/23/2025 6:12 PM EDT [facility] RDW 13.1 11.8 - 14.4 % 01/23/2025 6:12 PM EDT [facility] Platelets See Reflexed IPF Result 138 - 453 k/uL 01/23/2025 6:12 PM EDT [facility] Platelet, Fluorescence 3(LL) 138 - 453 k/uL 01/23/2025 6:12 PM EDT [facility] Platelet, Immature Fraction 48.4(H) 1.1 - 10.3 % 01/23/2025 6:12 PM EDT [facility] NRBC Automated 0.0 0.0 per 100 WBC 01/23/2025 6:12 PM EDT [facility] Neutrophils % 83(H) 36 - 65 % 01/23/2025 6:12 PM EDT [facility] Lymphocytes % 12(L) 24 - 43 % 01/23/2025 6:12 PM EDT [facility] Monocytes % 4 3 - 12 % 01/23/2025 6:12 PM EDT [facility] Eosinophils % 0(L) 1 - 4 % 01/23/2025 6:12 PM EDT [facility] Basophils % 0 0 - 2 % 01/23/2025 6:12 PM EDT [facility] Immature Granulocytes % 1(H) 0 % 01/23/2025 6:12 PM EDT [facility] Neutrophils Absolute 5.15 1.50 - 8.10 k/uL 01/23/2025 6:12 PM EDT [facility] Lymphocytes Absolute 0.76(L) 1.10 - 3.70 k/uL 01/23/2025 6:12 PM EDT [facility] Monocytes Absolute 0.22 0.10 - 1.20 k/uL 01/23/2025 6:12 PM EDT [facility] Eosinophils Absolute <0.03 0.00 - 0.44 k/uL 01/23/2025 6:12 PM EDT [facility] Basophils Absolute <0.03 0.00 - 0.20 k/uL 01/23/2025 6:12 PM EDT [facility] Immature Granulocytes Absolute 0.03 0.00 - 0.30 k/uL 01/23/2025 6:12 PM EDT [facility] Blood BLOOD SPECIMEN / Unknown 01/23/2025 6:12 PM EDT 01/23/2025 6:15 PM EDT Pérez Flynn MD HEMATOL OGY [place] [address], [facility] [phone] * Serotonin Rel Assay (01/23/2025 10:21 AM EDT) Heparin Type Porcine Heparin 01/23/2025 10:21 AM EDT [facility] KIM Heparin Platelet Antibody Negative Negative 01/23/2025 10:21 AM EDT [facility] KIM Porc Low Dose 3 % 025 10:21 AM EDT [facility] KIM Porc High Dose 0 % 2024 10:[address] [facility] SEROTONIN RELEASING ASSAY See Note 01/23/2025 10:21 AM EDT [facility] Comment: (NOTE) This patient's specimen demonstrates a negative result in the serotonin release assay. A diagnosis of heparin-induced thrombocytopenia (HIT) is unlikely, but not completely excluded. A positive result would demonstrate >= 20% serotonin release from reagent platelets in the presence of patient specimen and low-dose heparin (0.1 U/mL) and <20% serotonin release from reagent platelets (inhibition of the reaction) in the presence of patient specimen and high-dose heparin (100 U/mL). Additional information regarding diagnosis of HIT is available at [facility]. INTERPRETIVE INFORMATION: KIM, Unfractionated Heparin This test was developed and its performance characteristics determined by [facility]. It has not been cleared or approved by the US Food and Drug Administration. This test was performed in a CLIA certified laboratory and is intended for clinical purposes. Performed By: [facility] [address] [place] [address] Score Caller: Mariusz Melo MD, PhD CLIA Number: [id number] 01/23/2025 10:2 1 AM EDT 01/23/2025 10:23 AM EDT Uzair Wilson MD CHEMISTRY ORDERABLES Yamile l Result [address] [place] [address], [facility] [phone] [phone] * PREVIOUS SPECIMEN (01/23/2025 10:21 AM EDT) 01/23/2025 10:2 1 AM EDT 01/23/2025 10:23 AM EDT Result [facility] Uzair Wilson MD CHEMISTRY ORDERABLES [place] [address], [facility] [phone] * (ABNORMAL) Federico Herring Panel (01/23/2025 9:02 AM EDT) EBV VCA,IgG >750.0(H) 0.0 - 21.9 U/mL 01/23/2025 9:02 AM EDT [facility] Comment: (NOTE) INTERPRETIVE INFORMATION: Federico-Herring Virus Antibody to Viral Capsid Antigen, IgG 17.9 U/mL or less.......Not Detected 18.0-21.9 U/mL..........Indeterminate - Repeat testing in 10-14 days may be helpful. 22.0 U/mL or greater....Detected EBV VCA,IgM 26.5 0.0 - 43.9 U/mL 01/23/2025 9:02 AM EDT [facility] Comment: (NOTE) INTERPRETIVE INFORMATION: Federico-Herring Virus Antibody to Viral Capsid Antigen, IgM 35.9 U/mL or less.......Not Detected 36.0-43.9 U/mL..........Indeterminate - Repeat testing in 10-14 days may be helpful. 44.0 U/mL or greater....Detected EBV Nuclear Ag Ab >600.0(H) 0.0 - 21.9 U/mL 01/23/2025 9:02 AM EDT [facility] Comment: (NOTE) INTERPRETIVE INFORMATION: Federico-Herring Virus Antibody to Nuclear Antigen, IgG 17.9 U/mL or less.......Not Detected 18.0-21.9 U/mL..........Indeterminate - Repeat testing in 10-14 days may be helpful. 22.0 U/mL or greater....Detected EBV Early Antigen Ab, IgG >150.0(H) 0.0 - 10.9 U/mL 01/23/2025 9:02 AM EDT [facility] Comment: (NOTE) INTERPRETIVE INFORMATION: Federico-Herring Virus Antibody to Early D Antigen (EA-D), IgG 8.9 U/mL or less........Not Detected 9.0-10.9 U/mL...........Indeterminate - Repeat testing in 10-14 days may be helpful. 11.0 U/mL or greater....Detected Performed By: [facility] [address] [place] [address] Score Caller: Mariusz Melo MD, PhD CLIA Number: [id number] 01/23/2025 9:02 AM EDT 01/23/2025 9:06 AM EDT Pérez Flynn MD INTERLINE CLERK RY ORDERABLES Final Result Performing Organization Address [facility] Co de Phone Number [facility] [address] [facility] [address] [place] [address], [facility] [phone] [phone] * Immunotyping, Serum (01/23/2025 9:02 AM EDT) ITYP Interpretation Immunotyping is negative for monoclonal immunoglobulin. 01/23/2025 9:02 AM EDT [facility] Pathologist Review ELECTRONICALLY SIGNED. PILOL ELY M.D. 01/23/2025 9:02 AM EDT [facility] 01/23/2025 9:02 AM EDT 01/23/2025 9:06 AM EDT Pérez Flynn MD INTERLINE CLERK RY ORDERABLES Final Result Performing Organization Address [facility]/State/ZIP Co de Phone Number [facility] [address] [place] [address], [facility] [phone] * (ABNORMAL) Cytomegalovirus Ab,IGG,IGM (01/23/2025 9:02 AM EDT) CMV IgG 744.0(H) <0.5 01/23/2025 9:02 AM EDT [facility] Comment: Reference Range: <0.5 Non Reactive 0.5 to 0.9 Borderline >0.9 Reactive The absence of CMV antibodies suggests that the patient has not been exposed to the virus and is susceptible to primary infection. The presence of CMV IgG antibodies is indicative of previous exposure to the virus, but cannot distinguish between active or past infection. Patients suspected of having primary or active infection should be tested for the concurrent presence of CMV IgM antibodies and/or retested for seroconversion in 3 to 4 weeks. These results are not intended to replace virus isolation and should be interpreted within the context of clinical and other findings. The Aidan ECLIA assay is used. Results obtained with different assay methods cannot be used interchangeably. CMV IgM 0.2 <0.7 01/23/2025 9:02 AM EDT [facility] Comment: Reference Range: <0.7 Non Reactive 0.7 to 0.9 Borderline >0.9 Reactive The absence of CMV antibodies suggests that the patient has not been exposed to the virus and is susceptible to primary infection. The presence of CMV IgM antibodies is indicative of recent exposure to the virus. These results are not intended to replace virus isolation and should be interpreted within the context of clinical and other findings. The Aidan ECLIA assay is used. Results obtained with different assay methods cannot be used interchangeably. BLOOD SPECIMEN / Unknown 01/23/2025 9:02 AM EDT 01/23/2025 9:06 AM EDT Pérez Flynn MD INTERLINE CLERK RY ORDERABLES Final Result Performing Organization Address City/State/[facility] Co de Phone Number [facility] [address] [phone] * (ABNORMAL) Electrophoresis Protein, Serum (01/23/2025 9:02 AM EDT) Total Protein 8.3 6.6 - 8.7 g/dL 01/23/2025 9:02 AM EDT [facility] Albumin (calculated) 3.1(L) 3.2 - 5.2 g/dL 01/23/2025 9:02 AM EDT [facility] Albumin % 37(L) 56 - 66 % 01/23/2025 9:02 AM EDT [facility] Inrqy-2-Nsgkepye 0.4 0.1 - 0.4 g/dL 01/23/2025 9:02 AM EDT [facility] Alpha 1 % 5 3 - 5 % 01/23/2025 9:02 AM EDT [facility] Qdxmq-7-Szpubaik 1.0(H) 0.5 - 0.9 g/dL 01/23/2025 9:02 AM EDT [facility] Alpha 2 % 11 7 - 12 % 01/23/2025 9:02 AM EDT [facility] Beta Globulin 0.8 0.7 - 1.4 g/dL 01/23/2025 9:02 AM EDT [facility] Beta Percent 10 8 - 13 % 01/23/2025 9:02 AM EDT [facility] Gamma Globulin 3.1(H) 0.5 - 1.5 g/dL 01/23/2025 9:02 AM EDT [facility] Gamma Globulin % 37(H) 11 - 19 % 01/23/2025 9:02 AM EDT [facility] Total Prot. Sum 8.4(H) 6.3 - 8.2 g/dL 01/23/2025 9:02 AM EDT [facility] Total Prot. Sum,% 100 98 - 102 % 01/23/2025 9:02 AM EDT [facility] Protein Electrophoresis, Serum Albumin is decreased. May be observed with hepatic diseases, 01/23/2025 9:02 AM EDT [facility] Comment: proteinuria, malnutrition, acute phase response, and hemodilution. Elevated alpha 2 globulins. May be observed in a variety of conditions associated with acute tissue damage/necrosis and/or infection/inflammation, and also nephrotic disease. Polyclonal hypergammaglobulinemia is present. May be observed in a variety of conditions associated with chronic inflammation/infection, e.g. chronic hepatic disease, autoimmune diseases, granulomatous processes, etc. Immunotyping is negative for monoclonal immunoglobulin. Pathologist ELECTRONICALLY SIGNED. PILLO ELY M.D. 01/23/2025 9:02 AM [employer] [facility] BLOOD SPECIMEN / Unknown 01/23/2025 9:02 AM EDT 01/23/2025 9:06 AM EDT Pérez Flynn MD IMMUNOL OGY ORDERABLES Final Result Performing Organization Address [facility]/ZIP Co de Phone Number [address] [phone] * Vitamin B12 & Folate (01/23/2025 9:02 AM EDT) Vitamin B-12 624 232 - 1245 pg/mL 01/23/2025 9:02 AM EDT [facility] Folate 11.7 4.8 - 24.2 ng/mL 01/23/2025 9:02 AM EDT [facility] Blood BLOOD SPECIMEN / Unknown 01/23/2025 9:02 AM EDT 01/23/2025 9:06 AM EDT Pérez Zohreh Flynn MD INTERLINE CLERK RY ORDERABLES Final Result Performing Organization Address [facility] Co de Phone Number [address] [phone] * [id number] ACTIVITY (01/23/2025 9:02 AM EDT) [id number] Activity >100 >=61 % 025 9:02 AM EDT [facility] Comment: (NOTE) INTERPRETIVE INFORMATION: NOHQZW77 Activity DPFPEC77 levels of less than 10 percent may be associated with either inherited (Tomeka-Abel Syndrome) or acquired thrombotic thrombocytopenic purpura (TTP). A variety of medical conditions may result in a mild to moderate deficiency of QVSPVE37 activity. Recent plasma exchange therapy may raise the observed IRUAKC82 activity. This test was developed and its performance characteristics determined by [facility]. It has not been cleared or approved by the US Food and Drug Administration. This test was performed in a CLIA certified laboratory and is intended for clinical purposes. Performed By: [facility] [address] [place] [id number] Score Caller: Mariusz Melo MD, PhD CLIA Number: [id number] Blood BLOOD SPECIMEN / Unknown 01/23/2025 9:02 AM EDT 01/23/2025 9:06 AM EDT Pérez Flynn MD INTERLINE CLERK RY ORDERABLES Final Result [facility] [address] [place] [id number], [facility] [phone] [facility] [address] [place] [address], [facility] [phone] * (ABNORMAL) CBC with Auto Differential (01/23/2025 4:02 AM EDT) WBC 7.5 3.5 - 11.3 k/uL 01/23/2025 4:02 AM EDT [facility] RBC 4.12(L) 4.21 - 5.77 m/uL 01/23/2025 4:02 AM EDT [facility] Hemoglobin 11.8(L) 13.0 - 17.0 g/dL 01/23/2025 4:02 AM EDT [facility] Hematocrit 36.1(L) 40.7 - 50.3 % 01/23/2025 4:02 AM EDT [facility] MCV 87.6 82.6 - 102.9 fL 01/23/2025 4:02 AM EDT [facility] MCH 28.6 25.2 - 33.5 pg 01/23/2025 4:02 AM EDT [facility] MCHC 32.7 28.4 - 34.8 g/dL 01/23/2025 4:02 AM EDT [facility] RDW 12.8 11.8 - 14.4 % 01/23/2025 4:02 AM EDT [facility] Platelets See Reflexed IPF Result 138 - 453 k/uL 01/23/2025 4:02 AM EDT [facility] Platelet, Fluorescence <2(LL) 138 - 453 k/uL 01/23/2025 4:02 AM EDT [facility] Platelet, Immature Fraction 28.7(H) 1.1 - 10.3 % 01/23/2025 4:02 AM EDT [facility] NRBC Automated 0.0 0.0 per 100 WBC 01/23/2025 4:02 AM EDT [facility] Neutrophils % 63 36 - 65 % 01/23/2025 4:02 AM EDT [facility] Lymphocytes % 19(L) 24 - 43 % 01/23/2025 4:02 AM EDT [facility] Monocytes % 17(H) 3 - 12 % 01/23/2025 4:02 AM EDT [facility] Eosinophils % 0(L) 1 - 4 % 01/23/2025 4:02 AM EDT [facility] Basophils % 0 0 - 2 % 01/23/2025 4:02 AM EDT [facility] Immature Granulocytes % 1(H) 0 % 01/23/2025 4:02 AM EDT [facility] Neutrophils Absolute 4.73 1.50 - 8.10 k/uL 01/23/2025 4:02 AM EDT [facility] Lymphocytes Absolute 1.45 1.10 - 3.70 k/uL 01/23/2025 4:02 AM EDT [facility] Monocytes Absolute 1.24(H) 0.10 - 1.20 k/uL 01/23/2025 4:02 AM EDT [facility] Eosinophils Absolute <0.03 0.00 - 0.44 k/uL 01/23/2025 4:02 AM EDT [facility] Basophils Absolute <0.03 0.00 - 0.20 k/uL 01/23/2025 4:02 AM EDT [facility] Immature Granulocytes Absolute 0.06 0.00 - 0.30 k/uL 01/23/2025 4:02 AM EDT [facility] Blood BLOOD SPECIMEN / Unknown 01/23/2025 4:02 AM EDT 01/23/2025 4:31 AM EDT Milind Corley MD HEMATOLOGY ORDERABLES Final Res ult [facility] [address] [place] [address], [facility] [phone] * (ABNORMAL) Basic Metabolic Panel w/ Reflex to MG (01/23/2025 4:02 AM EDT) Sodium 133(L) 136 - 145 mmol/L 01/23/2025 4:02 AM EDT [facility] Potassium 3.7 3.7 - 5.3 mmol/L 01/23/2025 4:02 AM EDT [facility] Chloride 102 98 - 107 mmol/L 01/23/2025 4:02 AM EDT [facility] CO2 19(L) 20 - 31 mmol/L 01/23/2025 4:02 AM EDT [facility] Anion Gap 12 9 - 16 mmol/L 01/23/2025 4:02 AM EDT [facility] Glucose 88 74 - 99 mg/dL 01/23/2025 4:02 AM EDT [facility] BUN 20 8 - 23 mg/dL 01/23/2025 4:02 AM EDT [facility] Creatinine 0.6(L) 0.7 - 1.2 mg/dL 01/23/2025 4:02 AM EDT [facility] Est, Glom Filt Rate >90 >60 mL/min/1. 73m2 01/23/2025 4:02 AM EDT [facility] Comment: These results are not intended for use in patients <18 years of age. eGFR results are calculated without a race factor using the 2020 CKD-EPI equation. Careful clinical correlation is recommended, particularly when comparing to results calculated using previous equations. The CKD-EPI equation is less accurate in patients with extremes of muscle mass, extra-renal metabolism of creatine, excessive creatine ingestion, or following therapy that affects renal tubular secretion. Calcium 8.7 8.6 - 10.4 mg/dL 01/23/2025 4:02 AM EDT [facility] Blood BLOOD SPECIMEN / Unknown 01/23/2025 4:02 AM EDT 01/23/2025 4:31 AM EDT us Milind Corley MD CHEMISTRY ORDERABLES Final Resu lt [facility] [address] [place] [address], [facility] [phone] * US LIVER SPLEEN (01/22/2025 9:17 PM EDT) Anatomical Region Laterality Modality Abdomen Ultrasound 01/22/2025 11:5 7 PM EDT Impressions 01/22/2025 11:59 PM EDT 1. Unremarkable right upper quadrant ultrasound. 2. Normal spleen. Narrative 01/22/2025 11:59 PM EDT EXAMINATION: RIGHT UPPER QUADRANT ULTRASOUND 01/22/2025 8:30 pm COMPARISON: January 21, 2025 HISTORY: ORDERING SYSTEM PROVIDED HISTORY: Acute onset thrombocytopenia. Rule out hepatosplenomegaly TECHNOLOGIST PROVIDED HISTORY: Acute onset thrombocytopenia. Rule out hepatosplenomegaly FINDINGS: LIVER: The liver demonstrates normal echogenicity without evidence of intrahepatic biliary ductal dilatation. Benign cysts measure up to 12 mm. BILIARY SYSTEM: Gallbladder is unremarkable without evidence of pericholecystic fluid, wall thickening or stones. Negative sonographic Tate's sign. Common bile duct is within normal limits measuring 4 mm. RIGHT KIDNEY: The right kidney is grossly unremarkable without evidence of hydronephrosis. The right kidney measures 11.1 cm in length. PANCREAS: Visualized portions of the pancreas are unremarkable. OTHER: No evidence of right upper quadrant ascites. The spleen is normal in size, measuring 9.2 cm. Procedure Note Mary Erwin MD - 01/23/2025 EXAMINATION: RIGHT UPPER QUADRANT ULTRASOUND 01/22/2025 8:30 pm COMPARISON: January 21, 2025 HISTORY: ORDERING SYSTEM PROVIDED HISTORY: Acute onset thrombocytopenia. Rule out hepatosplenomegaly TECHNOLOGIST PROVIDED HISTORY: Acute onset thrombocytopenia. Rule out hepatosplenomegaly FINDINGS: LIVER: The liver demonstrates normal echogenicity without evidence of intrahepatic biliary ductal dilatation. Benign cysts measure up to 12mm. BILIARY SYSTEM: Gallbladder is unremarkable without evidence of pericholecystic fluid, wall thickening or stones. Negative sonographic Tate's sign. Common bile duct is within normal limits measuring 4 mm. RIGHT KIDNEY: The right kidney is grossly unremarkable without evidenceof hydronephrosis. The right kidney measures 11.1 cm in length. PANCREAS: Visualized portions of the pancreas are unremarkable. OTHER: No evidence of right upper quadrant ascites. The spleen is normalin size, measuring 9.2 cm. IMPRESSION: 1. Unremarkable right upper quadrant ultrasound. 2. Normal spleen. us Milind Corley MD [facility] US ORDERABLES Final Result * CT CHEST W CONTRAST (01/22/2025 8:03 PM EDT) Anatomical Region Laterality Modality Chest Computed Tomogra phy 01/22/2025 10:3 7 PM EDT Impressions 01/23/2025 4:23 PM EDT 1. No evidence of malignancy in the chest. 2. Mild centrilobular emphysema. 3. Coronary artery atherosclerosis. 4. Hepatic steatosis. Narrative 01/23/2025 4:23 PM EDT EXAMINATION: CT OF THE CHEST WITH CONTRAST 01/22/2025 7:55 pm TECHNIQUE: CT of the chest was performed with the administration of intravenous contrast. Multiplanar reformatted images are provided for review. Automated exposure control, iterative reconstruction, and/or weight based adjustment of the mA/kV was utilized to reduce the radiation dose to as low as reasonably achievable. COMPARISON: Correlation is made to chest radiograph dated January 22, 2025. No similar exam for comparison. HISTORY: ORDERING SYSTEM PROVIDED HISTORY[facility] TECHNOLOGIST PROVIDED HISTORY: [facility] evalaute for malignancy FINDINGS: Mediastinum: Thoracic aorta is atherosclerotic. Coronary artery atherosclerosis. Thoracic aorta and central portion of the pulmonary artery opacify normally. The ascending thoracic aorta is of normal caliber. Heart size is normal. There is no pericardial effusion. No evidence of hilar adenopathy. Enlarged subcarinal node measures 1.4 cm in the short axis dimension. There are coarsely calcified subcarinal and right hilar nodes. Lungs/pleura: Mild centrilobular emphysema. There are calcified granulomas in the right lung. Bandlike opacity in the left lower lobe is probably scarring or atelectasis. Central tracheobronchial airways are unremarkable. No bronchiectasis or bronchial wall thickening. No focal consolidation, pleural effusion, or pneumothorax. Symmetric bilateral apical scarring. Upper Abdomen: Hyperdense material layers in the dependent portion of the gallbladder lumen. Differential includes excreted contrast from prior CT of the abdomen and pelvis dated January 21, 2025, small stones, and sludge. Multiple hypodensities in the liver are probably cysts. Hepatic steatosis. No acute abnormality in the upper abdomen. Soft Tissues/Bones: No aggressive lytic or blastic bony lesion. Procedure Note Jason Mckeon MD - 01/23/2025 EXAMINATION: CT OF THE CHEST WITH CONTRAST 01/22/2025 7:55 pm TECHNIQUE: CT of the chest was performed with the administration of intravenous contrast. Multiplanar reformatted images are provided for review.Automated exposure control, iterative reconstruction, and/or weight based adjustmentof the mA/kV was utilized to reduce the radiation dose to as low asreasonably achievable. COMPARISON: Correlation is made to chest radiograph dated January 22, 2025. No similarexam for comparison. HISTORY: ORDERING SYSTEM PROVIDED HISTORY: [facility] evalaute for malignancy TECHNOLOGIST PROVIDED HISTORY: [facility] eval[facility]ute for malignancy FINDINGS: Mediastinum: Thoracic aorta is atherosclerotic. Coronary artery atherosclerosis. Thoracic aorta and central portion of the pulmonaryartery opacify normally. The ascending thoracic aorta is of normal caliber.Heart size is normal. There is no pericardial effusion. No evidence of hilar adenopathy. Enlarged subcarinal node measures 1.4 cm in the short axis dimension. There are coarsely calcified subcarinal and right hilarnodes. Lungs/pleura: Mild centrilobular emphysema. There are calcifiedgranulomas in the right lung. Bandlike opacity in the left lower lobe is probably scarring or atelectasis. Central tracheobronchial airways areunremarkable. No bronchiectasis or bronchial wall thickening. No focal consolidation, pleural effusion, or pneumothorax. Symmetric bilateral apical scarring. Upper Abdomen: Hyperdense material layers in the dependent portion ofthe gallbladder lumen. Differential includes excreted contrast from prior CTof the abdomen and pelvis dated January 21, 2025, small stones, and sludge. Multiple hypodensities in the liver are probably cysts. Hepaticsteatosis. No acute abnormality in the upper abdomen. Soft Tissues/Bones: No aggressive lytic or blastic bony lesion. IMPRESSION: 1. No evidence of malignancy in the chest. 2. Mild centrilobular emphysema. 3. Coronary artery atherosclerosis. 4. Hepatic steatosis. Robel Mccormack MD [facility] [place] CT ORDERABLES Final Result * (ABNORMAL) CBC with Auto Differential (01/22/2025 5:41 PM EDT) WBC 5.1 3.5 - 11.3 k/uL 01/22/2025 5:41 PM EDT [facility] RBC 4.87 4.21 - 5.77 m/uL 01/22/2025 5:41 PM EDT [facility] Hemoglobin 13.9 13.0 - 17.0 g/dL 01/22/2025 5:41 PM EDT [facility] Hematocrit 42.8 40.7 - 50.3 % 01/22/2025 5:41 PM ED [email or web address] MCV 87.9 82.6 - 102.9 fL 01/22/2025 5:41 PM ED [facility] MCH 28.5 25.2 - 33.5 pg 01/22/2025 5:41 PM ED [facility] MCHC 32.5 28.4 - 34.8 g/dL 01/22/2025 5:41 PM EDT [facility] RDW 13.0 11.8 - 14.4 % 01/22/2025 5:41 PM EDT [facility] Platelets See Reflexed IPF Result 138 - 453 k/uL 01/22/2025 5:41 PM ED [facility] Platelet, Fluorescence <2(LL) 138 - 453 k/uL 01/22/2025 5:41 PM EDT [facility] Platelet, Immature Fraction 0.0(L) 1.1 - 10.3 % 01/22/2025 5:41 PM ED [facility] NRBC Automated 0.0 0.0 per 100 WBC 01/22/2025 5:41 PM EDT [facility] Neutrophils % 78(H) 36 - 65 % 01/22/2025 5:41 PM EDT [facility] Lymphocytes % 15(L) 24 - 43 % 01/22/2025 5:41 PM EDT [facility] Monocytes % 6 3 - 12 % 01/22/2025 5:41 PM EDT [facility] Eosinophils % 0(L) 1 - 4 % 01/22/2025 5:41 PM EDT [facility] Basophils % 0 0 - 2 % 01/22/2025 5:41 PM EDT [facility] Immature Granulocytes % 1(H) 0 % 01/22/2025 5:41 PM EDT [facility] Neutrophils Absolute 4.02 1.50 - 8.10 k/uL 01/22/2025 5:41 PM EDT [facility] Lymphocytes Absolute 0.75(L) 1.10 - 3.70 k/uL 01/22/2025 5:41 PM EDT [facility] Monocytes Absolute 0.33 0.10 - 1.20 k/uL 01/22/2025 5:41 PM EDT [facility] Eosinophils Absolute <0.03 0.00 - 0.44 k/uL 01/22/2025 5:41 PM EDT [facility] Basophils Absolute <0.03 0.00 - 0.20 k/uL 01/22/2025 5:41 PM EDT [facility] Immature Granulocytes Absolute 0.03 0.00 - 0.30 k/uL 01/22/2025 5:41 PM EDT [facility] BLOOD SPECIMEN / Unknown 01/22/2025 5:41 PM EDT 01/22/2025 6:05 PM EDT Robel Mccormack MD HEMATOLOGY ORDERABLES Final Res ult Performing Organization Address [facility] Co de Phone Number [facility] [address] [place] [address], [facility] [phone] * Hepatitis Panel, Acute (01/22/2025 12:17 PM EDT) Hepatitis B Surface Ag NONREACTIVE NONREACTIVE 01/22/2025 12:17 PM EDT [facility] Hepatitis C Ab NONREACTIVE NONREACTIVE 01/23/20 12:17 PM EDT [facility] Comment: The hepatitis C procedure used in our laboratory is a Chemiluminescent test specific for three recombinant HCV antigens. A negative anti-HCV result indicates that the antibodies to hepatitis C virus are not present at this time. Individuals with reactive anti-HCV should be considered infected and infectious until proven otherwise. Confirmation of all equivocal or reactive results is recommended by ordering HCV RNA by PCR. Hep B Core Ab, IgM NONREACTIVE NONREACTIVE 12/31 12:17 PM EDT [facility] Hep A IgM NONREACTIVE NONREACTIVE 01/22/2025 12:17 PM EDT [facility] Blood BLOOD SPECIMEN / Unknown 01/22/2025 12:17 PM EDT 01/22/2025 12:21 PM EDT Vitor Joseph MD IMMUNOLOGY ORDERABLES Final R esult Performing Organization Address City/[facility]/ZIP Co de Phone Number [facility] [address] [place] [address], [facility] [phone] * (ABNORMAL) TEG Global Hemostasis with Lysis (01/22/2025 12:17 PM EDT) Reaction Time TEG 14.7(H) 4.6 - 9.1 min 01/22/2025 12:17 PM EDT [facility] LY30(Lysis) TEG 0.0 0.0 - 2.6 % 01/22/2025 12:17 PM EDT [facility] MA(Max Clot) Rapid TEG <40.0(L) 52.0 - 70 mm 01/22/2025 12:17 PM EDT [facility] Fibrinogen, Functional TEG 39.8(H) 15.0 - 32.0 mm 01/22/2025 12:17 PM EDT [facility] BLOOD SPECIMEN / Unknown 01/22/2025 12:17 PM EDT 01/22/2025 12:22 PM EDT Vitor Joseph MD HEMATOLOGY ORDERABLES Final R esult Performing Organization Address City/[facility]/ZIP Co de Phone Number [facility] [address] [place] [address], [facility] [phone] * Culture, Blood 1 (01/22/2025 12:13 PM EDT) Pathologist [facility] [place] Specimen Description .BLOOD 01/22/2025 12:13 PM EDT [facility] Special Requests RH [id number] 01/22/2025 12:13 PM EDT [facility] Culture NO GROWTH 5 DAYS 01/22/2025 12:13 PM EDT [facility] BLOOD SPECIMEN / Unknown 01/22/2025 12:13 PM EDT 01/22/2025 12:23 PM EDT Vitor Joseph MD MICROBIOLOGY - GENERAL ORDERA BLES Final Result Performing Organization Address City/[facility]/ZIP Co de Phone Number [facility] [address] [place] [address], [facility] [phone] * Culture, Blood 1 (01/22/2025 12:07 PM EDT) Specimen Description .BLOOD 01/22/2025 12:07 PM EDT [facility] Special Requests LH [id number] 01/22/2025 12:07 PM EDT [facility] Culture NO GROWTH 5 DAYS 01/22/2025 12:07 PM EDT [facility] BLOOD SPECIMEN / Unknown 01/22/2025 12:07 PM EDT 01/22/2025 12:24 PM EDT Vitor Joseph MD MICROBIOLOGY - GENERAL ORDERA BLES Final Result [facility] [address] [place] [address], [facility] [phone] * XR CHEST PORTABLE (01/22/2025 10:50 AM EDT) Anatomical Region Laterality Modality Chest Computed Radiogr aphy 01/22/2025 11:4 3 AM EDT Impressions 01/22/2025 11:44 AM EDT No acute pulmonary findings. Narrative 01/22/2025 11:44 AM EDT EXAMINATION: ONE XRAY VIEW OF THE CHEST 01/22/2025 10:57 am COMPARISON: None. HISTORY: ORDERING SYSTEM PROVIDED HISTORY: To look for pnemonia TECHNOLOGIST PROVIDED HISTORY: To look for pnemonia FINDINGS: Lungs: Clear. Pleura: No effusion or pneumothorax. Cardiomediastinal silhouette: Normal contours. Bones: No acute bony findings. Soft tissues: Normal. Procedure Note Bayron Hermosillo, DO - 01/22/2025 EXAMINATION: ONE XRAY VIEW OF THE CHEST 01/22/2025 10:57 am COMPARISON: None. HISTORY: ORDERING SYSTEM PROVIDED HISTORY: To look for pnemonia TECHNOLOGIST PROVIDED HISTORY: To look for pnemonia FINDINGS: Lungs: Clear. Pleura: No effusion or pneumothorax. Cardiomediastinal silhouette: Normal contours. Bones: No acute bony findings. Soft tissues: Normal. IMPRESSION: No acute pulmonary findings. Pérez Flynn MD IMG DIAGNOSTIC IMAGING ORDERABLES Final Result * (ABNORMAL) POCT Glucose (01/22/2025 10:30 AM EDT) POC Glucose 126(H) 74 - 100 mg/dL 01/22/2025 10:30 AM EDT [facility] 01/22/2025 10:3 0 AM EDT 01/22/2025 10:32 AM EDT Uzair Wilson MD POINT OF CARE TEST ORDERA BLES Final Result Performing Organization Address City/[facility]/ZIP Co de Phone Number [facility] [address] [place] [address], [facility] [phone] * (ABNORMAL) Arterial Blood Gas, POC (01/22/2025 10:30 AM EDT) POC pH 7.511(H) 7.350 - 7.450 01/22/2025 10:30 AM EDT [facility] POC pCO2 27.3(L) 35.0 - 48.0 mm Hg 01/22/2025 10:30 AM EDT [facility] POC PO2 87.1 83.0 - 108.0 mm Hg 01/22/2025 10:30 AM EDT [facility] POC HCO3 21.9 21.0 - 28.0 mmol/L 01/22/2025 10:30 AM EDT [facility] Positive Base Excess, Art 0.2 0.0 - 3.0 mmol/L 01/22/2025 10:30 AM EDT [facility] POC O2 SAT 97.7 94.0 - 98.0 % 01/22/2025 10:30 AM EDT [facility] O2 Delivery Device Room Air 01/22/2025 10:30 AM EDT [facility] Jone Test POSITIVE 01/22/2025 10:30 AM EDT [facility] Sample Site Right Radial Artery 01/22/2025 10:30 AM EDT [facility] 01/22/2025 10:3 0 AM EDT 01/22/2025 10:32 AM EDT Uzair Wilson MD POINT OF CARE TEST ORDERA BLES Final Result [facility] [address] [place] [address], [facility] [phone] * (ABNORMAL) ONOFRE profile (01/22/2025 9:34 AM EDT) [facility] Signature Anti-Orozco 1.6 <7.0 U/mL 01/22/2025 9:34 AM [facility] Comment: Reference Range: <7.0 Negative 7.0-10.0 Equivocal >10.0 Positive Ribosomal P Ab 7.9(H) <7.0 U/mL 01/22/2025 9:34 AM [facility] Comment: Reference Range: <7.0 Negative 7.0-10.0 Equivocal >10.0 Positive RNA Polymerase III Antibodies, IgG 1.5 <7.0 U/mL 01/22/2025 9:34 AM [facility] Comment: Reference Range: <7.0 Negative 7.0-10.0 Equivocal >10.0 Positive Anti-Scleroderm a 3.0 <7.0 U/mL 01/22/2025 9:34 AM [facility] Comment: Reference Range: <7.0 Negative 7.0-10.0 Equivocal >10.0 Positive Anti-RNP70 1.7 <7.0 U/mL 01/22/2025 9:34 AM [facility] Comment: Reference Range: <7.0 Negative 7.0-10.0 Equivocal >10.0 Positive Anti-U1RNP 3.1 <5.0 U/mL 01/22/2025 9:34 AM [facility] Comment: Reference Range: <5.0 Negative 5.0-10.0 Equivocal >10.0 Positive SSA 52 (RO) (DAVID) AB, IGG 0.9 <7.0 U/mL 01/22/2025 9:34 AM [facility] Comment: Reference Range: <7.0 Negative 7.0-10.0 Equivocal >10.0 Positive SSA 60 (RO) (DAVID) AB, IGG 1.0 <7.0 U/mL 01/22/2025 9:34 AM [facility] Comment: Reference Range: <7.0 Negative 7.0-10.0 Equivocal >10.0 Positive Anti SSB 0.7 <7.0 U/mL 01/22/2025 9:34 AM EDT [facility] Comment: Reference Range: <7.0 Negative 7.0-10.0 Equivocal >10.0 Positive Anti VAL-1 0.7 <7.0 U/mL 01/22/2025 9:34 AM EDT [facility] Comment: Reference Range: <7.0 Negative 7.0-10.0 Equivocal >10.0 Positive Anti-Centromere 1.0 <7.0 U/mL 9:34 AM EDT [facility] Comment: Reference Range: <7.0 Negative 7.0-10.0 Equivocal >10.0 Positive 01/22/2025 9:34 AM EDT 01/22/2025 9:46 AM EDT Pérez HAYNES OGY ORDERABLES Final Result [facility] [address] [place] [address] * (ABNORMAL) D-Dimer, Quantitative (01/22/2025 9:34 AM EDT) D-Dimer, Quant 2.86(H) 0.00 - 0.57 ug/mL FEU 01/22/2025 9:34 AM EDT [facility] Comment: When combined with a low clinical probability, a D dimer value of <0.50 ug/mL FEU is considered negative for DVT and PE (negative predictive value of 98%, sensitivity of 97%). If this test is not being used to help rule out DVT and PE, then the following reference range should be utilized: 0.00 - 0.57 ug/mL FEU. The D-Dimer assay is intended for use as an aid in the diagnosis of venous thromboembolism (DVT and PE) and the results should be interpreted in conjunction with the patient's medical history, clinical presentation, and other findings. Elevated levels of D-dimer activity can be seen in any state of coagulation activation and is not recommended in patients with therapeutic dose anticoagulant therapy for >24 hours, fibrinolytic therapy within the previous 7 days, trauma or surgery within the previous 4 weeks, disseminated malignancies, aortic aneurysm, sepsis, severe infections, pneumonia, severe skin infections, liver cirrhosis, advanced age, coronary disease, diabetes, and . A very low percentage of patients with DVT may yield D-dimer results below the cutoff of 0.5 ug/mL FEU. This is known to be more prevalent in patients with distal DVT. 01/22/2025 9:34 AM EDT 01/22/2025 9:46 AM EDT Pérez Flynn MD HEMATOL OGY ORDERABLES Final Result Performing Organization Address [facility] de Phone Number [facility] [address] [place] [address], [facility] [phone] * (ABNORMAL) Heparin-Induced Platelet Antibody (01/22/2025 9:34 AM EDT) Pathologist [facility] [place] Heparin Induced Plt Ab 1.247(H) 0.000 - 0.400 O.D. 01/22/2025 9:34 AM EDT [facility] Comment: O.D. Interpretation: <=0.400 Negative > 0.400 Positive 01/22/2025 9:34 AM EDT 01/22/2025 9:46 AM EDT Pérez Flynn MD HEMATOL OGY ORDERABLES Final Result Performing Organization Address [facility] de Phone Number [facility] [address] [place] [address], [facility] [phone] * (ABNORMAL) CBC with Auto Differential (01/22/2025 9:34 AM EDT) WBC 7.2 3.5 - 11.3 k/uL 01/22/2025 9:34 AM EDT [facility] RBC 4.67 4.21 - 5.77 m/uL 01/22/2025 9:34 AM EDT [facility] Hemoglobin 13.4 13.0 - 17.0 g/dL 01/22/2025 9:34 AM EDT [facility] Hematocrit 40.9 40.7 - 50.3 % 01/22/2025 9:34 AM EDT [facility] MCV 87.6 82.6 - 102.9 fL 01/22/2025 9:34 AM EDT [facility] MCH 28.7 25.2 - 33.5 pg 01/22/2025 9:34 AM EDT [facility] MCHC 32.8 28.4 - 34.8 g/dL 01/22/2025 9:34 AM EDT [facility] RDW 12.9 11.8 - 14.4 % 01/22/2025 9:34 AM EDT [facility] Platelets See Reflexed IPF Result 138 - 453 k/uL 01/22/2025 9:34 AM EDT [facility] Platelet, Fluorescence 2(LL) 138 - 453 k/uL 01/22/2025 9:34 AM EDT [facility] Platelet, Immature Fraction 4.8 1.1 - 10.3 % 01/22/2025 9:34 AM EDT [facility] NRBC Automated 0.0 0.0 per 100 WBC 01/22/2025 9:34 AM EDT [facility] Neutrophils % 66(H) 36 - 65 % 01/22/2025 9:34 AM EDT [facility] Lymphocytes % 22(L) 24 - 43 % 01/22/2025 9:34 AM EDT [facility] Monocytes % 11 3 - 12 % 01/22/2025 9:34 AM EDT [facility] Eosinophils % 1 1 - 4 % 01/22/2025 9:34 AM EDT [facility] Basophils % 0 0 - 2 % 01/22/2025 9:34 AM EDT [facility] Immature Granulocytes % 0 0 % 01/22/2025 9:34 AM EDT [facility] Neutrophils Absolute 4.73 1.50 - 8.10 k/uL 01/22/2025 9:34 AM EDT [facility] Lymphocytes Absolute 1.57 1.10 - 3.70 k/uL 01/22/2025 9:34 AM EDT [facility] Monocytes Absolute 0.79 0.10 - 1.20 k/uL 01/22/2025 9:34 AM EDT [facility] Eosinophils Absolute 0.04 0.00 - 0.44 k/uL 01/22/2025 9:34 AM EDT [facility] Basophils Absolute 0.03 0.00 - 0.20 k/uL 01/22/2025 9:34 AM EDT [facility] Immature Granulocytes Absolute 0.03 0.00 - 0.30 k/uL 01/22/2025 9:34 AM EDT [facility] 01/22/2025 9:34 AM EDT 01/22/2025 9:46 AM EDT Pérez Flynn MD HEMATOL OGY ORDERABLES Final Result [facility] [address] [place] [address], [facility] [phone] * (ABNORMAL) Basic Metabolic Panel w/ Reflex to MG (01/22/2025 9:34 AM EDT) Sodium 135(L) 136 - 145 mmol/L 01/22/2025 9:34 AM EDT [facility] Potassium 3.9 3.7 - 5.3 mmol/L 01/22/2025 9:34 AM EDT [facility] Chloride 101 98 - 107 mmol/L 01/22/2025 9:34 AM EDT [facility] CO2 19(L) 20 - 31 mmol/L 01/22/2025 9:34 AM EDT [facility] Anion Gap 15 9 - 16 mmol/L 01/22/2025 9:34 AM EDT [facility] Glucose 111(H) 74 - 99 mg/dL 01/22/2025 9:34 AM EDT [facility] BUN 13 8 - 23 mg/dL 01/22/2025 9:34 AM EDT [facility] Creatinine 0.6(L) 0.7 - 1.2 mg/dL 01/22/2025 9:34 AM EDT [facility] Est, Glom Filt Rate >90 >60 mL/min/1. 73m2 01/22/2025 9:34 AM EDT [facility] Comment: These results are not intended for use in patients <18 years of age. eGFR results are calculated without a race factor using the 2020 CKD-EPI equation. Careful clinical correlation is recommended, particularly when comparing to results calculated using previous equations. The CKD-EPI equation is less accurate in patients with extremes of muscle mass, extra-renal metabolism of creatine, excessive creatine ingestion, or following therapy that affects renal tubular secretion. Calcium 9.3 8.6 - 10.4 mg/dL 01/22/2025 9:34 AM EDT [facility] 01/22/2025 9:34 AM EDT 01/22/2025 9:46 AM EDT Pérez Flynn MD INTERLINE CLERK RY ORDERABLES Final Result Performing Organization Address [facility] Co de Phone Number [facility] [address] [place] [address], [facility] [phone] * (ABNORMAL) ONOFRE SCREEN WITH REFLEX (01/22/2025 9:34 AM EDT) ONOFRE POSITIVE( A) NEGATIVE 01/22/2025 9:34 AM EDT [facility] DAVID Antibodies Screen 0.5 <0.7 U/mL 01/22/2025 9:34 AM EDT [facility] Comment: Reference Range: <0.7 Negative 0.7-1.0 Equivocal >1.0 Positive DAVID Screen includes U1RNP,RNP70,Sm,Ro(SS-A),La(SS-B),CENP,Scl-70,Val-1 Anti ds DNA 35.0(H) <10.0 IU/mL 01/22/2025 9:34 AM EDT [facility] Comment: Reference Range: <10.0 Negative 10.0-15.0 Equivocal >15.0 Positive BLOOD SPECIMEN / Unknown 01/22/2025 9:34 AM EDT 01/22/2025 9:46 AM EDT us Pérez Flynn MD INTERLINE CLERK RY ORDERABLES Final Result Performing Organization Address [facility] Co de Phone Number [email or web address] [address] [place] [address], [facility] [phone] * DIRECT ANTIGLOBULIN TEST (01/22/2025 9:34 AM EDT) FELIPE, Polyspecific NEGATIVE 01/22/2025 9:34 AM EDT [facility] BLOOD SPECIMEN / Unknown 01/22/2025 9:34 AM EDT 01/22/2025 9:47 AM EDT Pérez Flynn MD BLOOD B ANK TEST ORDERABLES Final Result [facility] [address] [place] [address], [facility] [phone] * (ABNORMAL) Fibrin [employer] (01/22/2025 9:34 AM EDT) FDP >5(H) <5 ug/mL 01/22/2025 9:34 AM EDT [facility] Comment:<20 Blood BLOOD SPECIMEN / Unknown 01/22/2025 9:34 AM EDT 01/22/2025 9:46 AM EDT Pérez Flynn MD HEMATOL OGY ORDERABLES Final Result Performing Organization Address City/[facility]/ZIP Co de Phone Number [facility] [address] [place] [address], [facility] [phone] * (ABNORMAL) Fibrinogen (01/22/2025 9:34 AM EDT) Fibrinogen 681(H) 203 - 521 mg/dL 01/22/2025 9:34 AM EDT [facility] Blood BLOOD SPECIMEN / Unknown 01/22/2025 9:34 AM EDT 01/22/2025 9:46 AM EDT Pérez Flynn MD HEMATOL OGY ORDERABLES Final Result Performing Organization Address City/[facility]/ZIP Co de Phone Number [facility] [address] [place] [address], [facility] [phone] * Procalcitonin (01/22/2025 9:34 AM EDT) Procalcitonin 0.06 0.00 - 0.09 ng/mL 01/22/2025 9:34 AM EDT [facility] Comment: Suspected Sepsis: <0.50 ng/mL Low likelihood of sepsis. 0.50-2.00 ng/mL Increased likelihood of sepsis. Antibiotics encouraged. >2.00 ng/mL High risk of sepsis/shock. Antibiotics strongly encouraged. Suspected Lower Resp Tract Infections: <0.24 ng/mL Low likelihood of bacterial infection. >0.24 ng/mL Increased likelihood of bacterial infection. Antibiotics encouraged. With successful antibiotic therapy, PCT levels should decrease rapidly. (Half- life of 24 to 36 hours.) Procalcitonin values from samples collected within the first 6 hours of systemic infection may still be low. Retesting may be indicated. Values from day 1 and day 4 can be entered into the Change in Procalcitonin Calculator (www.incfnx-fji-gegvvdsqre.[employer]) to determine the patient's Mortality Risk Prognosis In healthy neonates, plasma Procalcitonin (PCT) concentrations increase gradually after , reaching peak values at about 24 hours of age then decrease to normal values below 0.5 ng/mL by 48-72 hours of age. Blood BLOOD SPECIMEN / Unknown 01/22/2025 9:34 AM EDT 01/22/2025 9:46 AM EDT Pérez Flynn MD INTERLINE CLERK RY ORDERABLES Final Result [facility] [address] [place] [address] * HIV Screen (01/22/2025 9:34 AM EDT) Pathologist [facility] [place] HIV Ag/Ab NONREACTIVE NONREACTIVE 01/22/2025 9:34 AM EDT [facility] Comment: No laboratory evidence of HIV infection. If acute HIV infection is suspected, consider testing for HIV-1 RNA. BLOOD SPECIMEN / Unknown 01/22/2025 9:34 AM EDT 01/22/2025 9:46 AM EDT Pérez Flynn MD IMMUNOL OGY ORDERABLES Final Result Performing Organization Address [facility] Co de Phone Number [facility] [employer] [address] [place] [address], [facility] [phone] * MRSA DNA Probe, Nasal (01/22/2025 4:56 AM EDT) Specimen Description .NASAL SWAB 01/22/2025 4:56 AM EDT [facility] MRSA, DNA, Nasal NEGATIVE NEGATIVE 01/23/20 4:56 AM EDT [facility] Comment: NEGATIVE: MRSA DNA not detected by nucleic acid amplification. Results should be used as an adjunct to nosocomial control efforts to identify patients needing enhanced precautions. The test is not intended to identify patients with staphylococcal infections. Results should not be used to guide or monitor treatment for MRSA infections. Nasal 01/22/2025 4:56 AM EDT 01/22/2025 4:56 AM EDT Miilnd Corley MD MICROBIOLOGY - GENERAL ORDERABL ES Final Result Performing Organization Address [facility] de Phone Number [email or web address] [facility] [facility] [address] [place] [address], [facility] [phone] * Microscopic Urinalysis (01/22/2025 4:25 AM EDT) WBC, UA None 0 - 5 /HPF 01/22/2025 4:25 AM EDT [facility] RBC, UA 10 TO 20 0 - 4 /HPF 01/22/2025 4:25 AM EDT [facility] Comment:Reference range defi sapna for non-centrifuged specimen. Casts UA None Reference range defined for non-centrifug ed specimen. 0 - 8 /LPF 01/22/2025 4:25 AM EDT [facility] Epithelial Cells, UA None 0 - 5 /HPF 01/22/2025 4:25 AM EDT [facility] Bacteria, UA None None 01/22/2025 4:25 AM EDT [facility] 01/22/2025 4:25 AM EDT 01/22/2025 4:25 AM EDT Vitor Joseph MD URINE ORDERABLES Final Result Performing Organization Address City/[facility]/ZIP Co de Phone Number [facility] [address] [place] [address] * (ABNORMAL) Urinalysis with Reflex to Culture (01/22/2025 4:25 AM EDT) Color, UA Yellow Yellow 01/22/2025 4:25 AM EDT [facility] Turbidity UA Clear Clear 01/22/2025 4:25 AM EDT [facility] Glucose, Ur NEGATIVE NEGATIVE mg/dL 01/22/2025 4:25 AM EDT [facility] Bilirubin, Urine NEGATIVE NEGATIVE 01/22/2025 4:25 AM EDT [facility] Ketones, Urine NEGATIVE NEGATIVE mg/dL 01/22/2025 4:25 AM EDT [facility] Specific Lena, UA 1.052(H) 1.005 - 1.030 01/22/2025 4:25 AM EDT [facility] Urine Hgb MODERATE(A) NEGATIVE 01/22/2025 4:25 AM EDT [facility] pH, Urine 5.5 5.0 - 8.0 01/22/2025 4:25 AM EDT [facility] Protein, UA NEGATIVE NEGATIVE mg/dL 01/22/2025 4:25 AM EDT [facility] Urobilinogen, Urine Normal 0.0 - 1.0 EU/dL 01/22/2025 4:25 AM EDT [facility] Nitrite, Urine NEGATIVE NEGATIVE 01/22/2025 4:25 AM EDT [facility] Leukocyte Esterase, Urine NEGATIVE NEGATIVE 01/22/2025 4:25 AM EDT [facility] URINE SPECIMEN / Unknown 01/22/2025 4:25 AM EDT 01/22/2025 4:25 AM EDT Vitor Joseph MD URINE ORDERABLES Final Result Performing Organization Address City/[facility]/ZIP Co de Phone Number [facility] [address] [place] [address], [facility] [phone] * SURGICAL PATHOLOGY REPORT (01/22/2025 4:18 AM EDT) Surgical Pathology Report [id number] [facility] ANATOMIC PATHOLOGY [address] [place] [phone] SURGICAL PATHOLOGY CONSULTATION Patient Name: AMBROSIO RAMÍREZ V. MR#: [id number] Specimen #[id number] Procedures/Adden da PERIPHERAL BLOOD REPORT Date Ordered: 01/23/2025 Status: Signed Out Date Complete: 01/25/2025 By: Tamanna Gonzales M.D. Date Reported: 01/25/2025 INTERPRETATION Peripheral blood: - Normocytic red blood cells with unremarkable morphology. - White blood cells with normal morphology. No blasts. - Marked thrombocytopenia . RESULTS-COMMENTS PERIPHERAL BLOOD STUDY CBC: Please see the electronic health record for CBC parameters ([id number], 01/22/2025, 04:18). PLATELETS: Marked thrombocytopenia . LEUKOCYTES: White blood cells show normal morphology. No atypical lymphocytes. No dysplasia. There are no blasts. ERYTHROCYTES: Red blood cells show normal morphology. No schistocytes. Note: The electronic health record is reviewed. Tamanna Gonzales M.D. Source: A: Peripheral Blood Emergent Discovery 01/22/2025 4:18 AM EDT 01/23/2025 1:22 PM EDT Uzair Wilson MD PATHOLOGY/CYTOLOGY ORDERA BLES Final Result [facility] [address] [place] [address] [facility] Ping[facility] * (ABNORMAL) Myoglobin, Blood (01/22/2025 4:18 AM EDT) Myoglobin 27(L) 28 - 72 ng/mL 01/22/2025 4:18 AM EDT [facility] 01/22/2025 4:18 AM EDT 01/22/2025 4:18 AM EDT Uzair Wilson MD CHEMISTRY ORDERABLES Yamile l Result [facility] [address] [place] [address] * (ABNORMAL) Hepatic Function Panel (01/22/2025 4:18 AM EDT) Albumin 3.8 3.5 - 5.2 g/dL 01/22/2025 4:18 AM EDT [facility] Alkaline Phosphatase 84 40 - 129 U/L 01/22/2025 4:18 AM [email or web address] [email or web address] ALT 36 10 - 50 U/L 01/22/2025 4:18 AM EDT [facility] AST 28 10 - 50 U/L 01/22/2025 4:18 AM EDT [facility] Total Bilirubin 0.5 0.0 - 1.2 mg/dL 01/22/2025 4:18 AM EDT [facility] Bilirubin, Direct 0.3(H) 0.0 - 0.2 mg/dL 01/22/2025 4:18 AM EDT [facility] Bilirubin, Indirect 0.2 0.0 - 1.0 mg/dL 01/22/2025 4:18 AM EDT [email or web address] Total Protein 8.0 6.6 - 8.7 g/dL 01/22/2025 4:18 AM EDT [email or web address] Globulin 4.2 g/dL 01/22/2025 4:18 AM EDT [facility] Albumin/Globulin Ratio 0.9(L) 1.0 - 2.5 01/22/2025 4:18 AM EDT [facility] 01/22/2025 4:18 AM EDT 01/22/2025 4:18 AM EDT Uzair Wilson MD CHEMISTRY ORDERABLES Yamile l Result [facility] [address] [place] [address], [facility] [phone] * (ABNORMAL) C-Reactive Protein (01/22/2025 4:18 AM EDT) CRP 38.0(H) 0.0 - 5.0 mg/L 01/22/2025 4:18 AM EDT [facility] 01/22/2025 4:18 AM EDT 01/22/2025 4:18 AM EDT Uzair Wilson MD CHEMISTRY ORDERABLES Yamile l Result Performing Organization Address City/[facility] Co de Phone Number [facility] [address] [place] [address] * CK (01/22/2025 4:18 AM EDT) Pathologist [facility] [place] Total CK 62 39 - 308 U/L 01/22/2025 4:18 AM EDT [facility] 01/22/2025 4:18 AM EDT 01/22/2025 4:18 AM EDT Uzair Wilson MD CHEMISTRY ORDERABLES Yamile l Result Performing Organization Address [facility] de Phone Number [email or web address] [employer] [address] [place] [address], [facility] [phone] * TSH reflex to FT4 (01/22/2025 4:18 AM EDT) Pathologist [facility] [place] TSH 1.24 0.27 - 4.20 uIU/mL 01/22/2025 4:18 AM EDT [facility] 01/22/2025 4:18 AM EDT 01/22/2025 4:18 AM EDT Uzair Wilson MD CHEMISTRY ORDERABLES Yamile l Result Performing Organization Address [facility] de Phone Number [facility] [address] [place] [address] * (ABNORMAL) Sedimentation Rate (01/22/2025 4:18 AM EDT) Pathologist [facility] [place] Sed Rate, Automated 119(H) 0 - 20 mm/Hr 01/22/2025 4:18 AM EDT [facility] 01/22/2025 4:18 AM EDT 01/22/2025 4:18 AM EDT Uzair Wilson MD HEMATOLOGY ORDERABLES Fin al Result Performing Organization Address [facility]/ZIP Co de Phone Number [facility] [address] [place] [address], [facility] [phone] * Reticulocytes (01/22/2025 4:18 AM EDT) Retic Ct Pct 0.8 0.5 - 1.9 % 01/22/2025 4:18 AM EDT [facility] Absolute Retic # 0.039 0.030 - 0.080 M/uL 01/22/2025 4:18 AM EDT [facility] Immature Retic Fract 17.0 2.7 - 18.3 % 01/22/2025 4:18 AM EDT [facility] Retic Hemoglobin 29.9 28.2 - 35.7 pg 01/22/2025 4:18 AM EDT [facility] 01/22/2025 4:18 AM EDT 01/22/2025 4:18 AM EDT Uzair Wilson MD HEMATOLOGY ORDERABLES Fin al Result Performing Organization Address [facility] Co de Phone Number [facility] [address] [place] [address], [facility] [phone] * Path Review, Smear (01/22/2025 4:18 AM EDT) Pathologist Review ELECTRONICALLY SIGNED. TAMANNA GONZALES M.D. 01/22/2025 4:18 AM EDT [facility] 01/22/2025 4:18 AM EDT 01/22/2025 4:18 AM EDT Uzair Wilson MD HEMATOLOGY ORDERABLES Fin al Result [facility] [address] [place] [id number], [facility] [phone] * Lactate Dehydrogenase (01/22/2025 4:18 AM EDT) Pathologist [facility] [place] LD 193 135 - 225 U/L 01/22/2025 4:18 AM EDT [facility] 01/22/2025 4:18 AM EDT 01/22/2025 4:18 AM EDT Uzair Wilson MD CHEMISTRY ORDERABLES Yamile l Result [facility] [place] [address], [facility] [phone] * Lactic Acid (01/22/2025 4:18 AM EDT) Pathologist [facility] [place] Lactic Acid, Whole Blood 1.3 0.7 - 2.1 mmol/L 01/22/2025 4:18 AM EDT [facility] 01/22/2025 4:18 AM EDT 01/22/2025 4:18 AM EDT Uzair Wilson MD CHEMISTRY ORDERABLES Yamile l Result Performing Organization Address City/[facility]/ZIP Co de Phone Number [facility] [address] [place] [address], [facility] [phone] * (ABNORMAL) Haptoglobin (01/22/2025 4:18 AM EDT) Pathologist [facility] [place] Haptoglobin 381(H) 30 - 200 mg/dL 01/22/2025 4:18 AM EDT [facility] 01/22/2025 4:18 AM EDT 01/22/2025 4:18 AM EDT Uzair Wilson MD CHEMISTRY ORDERABLES Yamile l Result Performing Organization Address City/[facility]/ZIP Co de Phone Number [facility] [address] [place] [address], [facility] [phone] * (ABNORMAL) CBC with Auto Differential (01/22/2025 4:18 AM EDT) [facility] WBC 8.3 3.5 - 11.3 k/uL 01/22/2025 4:18 AM EDT [facility] RBC 4.70 4.21 - 5.77 m/uL 01/22/2025 4:18 AM EDT [facility] Hemoglobin 13.6 13.0 - 17.0 g/dL 01/22/2025 4:18 AM EDT [facility] Hematocrit 40.6(L) 40.7 - 50.3 % 01/22/2025 4:18 AM EDT [facility] MCV 86.4 82.6 - 102.9 fL 01/22/2025 4:18 AM EDT [facility] MCH 28.9 25.2 - 33.5 pg 01/22/2025 4:18 AM EDT [facility] MCHC 33.5 28.4 - 34.8 g/dL 01/22/2025 4:18 AM EDT [facility] RDW 12.8 11.8 - 14.4 % 01/22/2025 4:18 AM EDT [facility] Platelets See Reflexed IPF Result 138 - 453 k/uL 01/22/2025 4:18 AM EDT [facility] Platelet, Fluorescence <2(LL) 138 - 453 k/uL 01/22/2025 4:18 AM EDT [facility] Platelet, Immature Fraction 0.0(L) 1.1 - 10.3 % 01/22/2025 4:18 AM EDT [facility] NRBC Automated 0.0 0.0 per 100 WBC 01/22/2025 4:18 AM EDT [facility] Neutrophils % 68(H) 36 - 65 % 01/22/2025 4:18 AM EDT [facility] Lymphocytes % 19(L) 24 - 43 % 01/22/2025 4:18 AM EDT [facility] Monocytes % 11 3 - 12 % 01/22/2025 4:18 AM EDT [facility] Eosinophils % 0(L) 1 - 4 % 01/22/2025 4:18 AM EDT [facility] Basophils % 0 0 - 2 % 01/22/2025 4:18 AM EDT [facility] Immature Granulocytes % 1(H) 0 % 01/22/2025 4:18 AM EDT [email or web address] Neutrophils Absolute 5.63 1.50 - 8.10 k/uL 01/22/2025 4:18 AM EDT [facility] Lymphocytes Absolute 1.60 1.10 - 3.70 k/uL 01/22/2025 4:18 AM EDT [facility] Monocytes Absolute 0.94 0.10 - 1.20 k/uL 01/22/2025 4:18 AM EDT [facility] Eosinophils Absolute <0.03 0.00 - 0.44 k/uL 01/22/2025 4:18 AM EDT [facility] Basophils Absolute 0.03 0.00 - 0.20 k/uL 01/22/2025 4:18 AM EDT [facility] Immature Granulocytes Absolute 0.05 0.00 - 0.30 k/uL 01/22/2025 4:18 AM EDT [facility] 01/22/2025 4:18 AM EDT 01/22/2025 4:18 AM EDT us Uzair Wilson MD HEMATOLOGY ORDERABLES Fin al Result [email or web address] [id number] [address] [phone] * (ABNORMAL) Basic Metabolic Panel w/ Reflex to MG (01/22/2025 4:18 AM EDT) Sodium 136 136 - 145 mmol/L 01/22/2025 4:18 AM EDT [facility] Potassium 3.9 3.7 - 5.3 mmol/L 01/22/2025 4:18 AM EDT [facility] Chloride 101 98 - 107 mmol/L 01/22/2025 4:18 AM EDT [facility] CO2 20 20 - 31 mmol/L 01/22/2025 4:18 AM EDT [facility] Anion Gap 15 9 - 16 mmol/L 01/22/2025 4:18 AM EDT [facility] Glucose 112(H) 74 - 99 mg/dL 01/22/2025 4:18 AM EDT [facility] BUN 13 8 - 23 mg/dL 01/22/2025 4:18 AM EDT [facility] Creatinine 0.6(L) 0.7 - 1.2 mg/dL 01/22/2025 4:18 AM EDT [facility] Est, Glom Filt Rate >90 >60 mL/min/1. 73m2 01/22/2025 4:18 AM EDT [facility] Comment: These results are not intended for use in patients <18 years of age. eGFR results are calculated without a race factor using the 2020 CKD-EPI equation. Careful clinical correlation is recommended, particularly when comparing to results calculated using previous equations. The CKD-EPI equation is less accurate in patients with extremes of muscle mass, extra-renal metabolism of creatine, excessive creatine ingestion, or following therapy that affects renal tubular secretion. Calcium 9.2 8.6 - 10.4 mg/dL 01/22/2025 4:18 AM EDT [facility] 01/22/2025 4:18 AM EDT 01/22/2025 4:18 AM EDT us Uzair Wilson MD CHEMISTRY ORDERABLES Yamile l Result Performing Organization Address [facility] Co de Phone Number [facility] [address] [place] [address], [facility] [phone] * Protime-INR (01/22/2025 4:07 AM EDT) Protime 14.2 11.7 - 14.9 sec 01/22/2025 4:07 AM EDT [facility] INR 1.1 01/22/2025 4:07 AM EDT [facility] Comment: Therapeutic Range: Moderate Anticoagulant Intensity: INR = 2.0-3.0 High Anticoagulant Intensity: INR = 2.5-3.5 01/22/2025 4:07 AM EDT 01/22/2025 4:10 AM EDT us Milind Corley MD HEMATOLOGY ORDERABLES Final Res ult Performing Organization Address [facility]/ZIP Co de Phone Number [facility] [address] [place] [address], [facility] [phone] * (ABNORMAL) APTT (01/22/2025 4:07 AM EDT) APTT 66.5(H) 23.0 - 36.5 sec 01/22/2025 4:07 AM EDT [facility] Comment: IV Heparin Therapy Range: 66.0-92.0 sec Blood BLOOD SPECIMEN / Unknown 01/22/2025 4:07 AM EDT 01/22/2025 4:10 AM EDT us Milind Corley MD HEMATOLOGY ORDERABLES Final Res ult [facility] [address] [place] [address] documented in this encounter Visit Diagnoses Diagnosis Thrombocytopenia- Primary Thrombocytopenia, unspecified H. pylori infection Helicobacter pylori (H. pylori) S/P AAA repair Other postprocedural status Rash Rash and other nonspecific skin eruption Thrombocytopenia Thrombocytopenia, unspecified Rash Rash and other nonspecific skin eruption S/P AAA repair Other postprocedural status H. pylori infection Helicobacter pylori (H. pylori) documented in this encounter Admitting Diagnoses Diagnosis Thrombocytopenia Thrombocytopenia, unspecified documented in this encounter Administered Medications Inactive Administered Medications - up to 3 most recent administrations Medication Order MAR Action Action Date Dose Rate Site 0.9 % sodium chloride infusion IntraVENous, at 5-250 mL/hr, PRN, if patient receiving piggyback infusions and maintenance fluids are not ordered, Starting on 01/22/25 at 0347, For piggyback infusion, administer at same rate as piggyback for a total of 25 mL. Enter 25 mL into dose field and piggyback rate into rate field of order. If piggyback is infusing at a rate less than 100 mL/hr, enter 25 mL into dose field and 100 mL/hr into rate field of order. Restarted 01/23/2025 8:48 AM EDT 5 mL/hr New Bag 01/23/2025 8:32 AM EDT 5 mL/hr acetaminophen (TYLENOL) suppository 650 mg 650 mg, Rectal, EVERY 6 HOURS PRN, Starting on 01/22/25 at 0347, Until Andreea 01/27/25 at 1437, Pain Mild (1-3), allowed for higher pain score per patient request, Fever, For temp greater than 100.4 F (38 C), Administer if oral route cannot be used. acetaminophen (TYLENOL) tablet 650 mg 650 mg, Oral, EVERY 6 HOURS PRN, Starting on 01/22/25 at 0347, Until Andreea 01/27/25 at 1437, Pain Mild (1-3), allowed for higher pain score per patient request, Fever, For temp greater than 100.4 F (38 C), Maximum dose of acetaminophen is 4000 mg from all sources in 24 hours. albuterol (PROVENTIL) (2.5 MG/3ML) 0.083% nebulizer solution 2.5 mg 2.5 mg, Nebulization, EVERY 4 HOURS PRN, Starting on 01/22/25 at 0522, Until Andreea 01/27/25 at 1437, Wheezing, Shortness of Breath, Initiate RT Bronchodilator Protocol: Yes - Inpatient Protocol bismuth subsalicylate (PEPTO BISMOL) 262 MG/15ML suspension 30 mL 30 mL, Oral, 4 TIMES DAILY, 56 doses, First dose on Fri01/26/25 at 1300, Last dose on Fri02/09/25 at 0900 Given 01/27/2025 8:17 AM EDT 30 mLs Given 01/26/2025 8:17 PM EDT 30 mLs Given 01/26/2025 4:55 PM EDT 30 mLs dexAMETHasone (DECADRON) 40 mg in sodium chloride 0.9 % 50 mL IVPB 40 mg, IntraVENous, at 200 mL/hr, Administer over 15 Minutes, EVERY 24 HOURS, First dose on Fri01/22/25 at 0730, For 4 days New Bag 01/25/2025 8:12 AM EDT 40 mg 200 mL/hr New Bag 01/24/2025 8:17 AM EDT 40 mg 200 mL/hr New Bag 01/23/2025 8:33 AM EDT 40 mg 200 mL/hr immune globulin (GAMUNEX-C) 10% solution 60 g 60 g (1 g/kg 60 kg Order-specific weight), IntraVENous, ONCE, 1 dose, On Fri01/23/25 at 1700, Initial (first 30 minutes): 1 mg/kg/minute (0.6 mL/kg/hour); Maintenance: Increase gradually (if tolerated) to a maximum of 8 mg/kg/minute (4.8 mL/kg/hour). Rate/Dose Change 01/23/2025 11:47 PM EDT 240 mL/hr Rate/Dose Change 01/23/2025 11:11 PM EDT 200 mL /hr Rate/Dose Change 01/23/2025 9:58 PM EDT 160 mL/ hr immune globulin (GAMUNEX-C) 10% solution 65,000 mg 65,000 mg (rounded from 66,000 mg = 1,000 mg/kg 66 kg), IntraVENous, ONCE, 1 dose, On 01/25/25 at 1845, Initial (first 30 minutes): 1 mg/kg/minute (0.6 mL/kg/hour); Maintenance: Increase gradually (if tolerated) to a maximum of 8 mg/kg/minute (4.8 mL/kg/hour). New Bag 01/25/2025 8:57 PM EDT 65,000 mg 39.6 mL/hr Immune Globulin (Human) 66,000 mg in dextrose 5 % 1,320 mL Infusion 66,000 mg (rounded from 66 g = 1,000 mg/kg 66 kg), IntraVENous, ONCE, On 01/22/25 at 1930, For 1 dose, Immune Globulin 5 % 1 mg/kg/minute (0.6 mL/kg/hour); Maintenance: Increase gradually (if tolerated) to a maximum of 8 mg/kg/minute (4.8 mL/kg/hour). Rate/Dose Verify 01/23/2025 1:40 AM EDT 316 mL/hr Rate/Dose Change 01/23/2025 1:40 AM EDT 316 mL/ hr Rate/Dose Verify 01/23/2025 1:11 AM EDT 280 mL/ hr iopamidol (ISOVUE-370) 76 % injection 75 mL 75 mL, IntraVENous, IMG ONCE PRN, 1 dose, Starting on 01/22/25 at 1953, Until 01/22/25 at 195, Other Given 01/22/2025 7:55 PM EDT 75 mLs labetalol (NORMODYNE;TRANDATE) injection 10 mg 10 mg, IntraVENous, EVERY 4 HOURS PRN, Starting on 01/22/25 at 0507, Until Andreea 01/27/25 at 1437, High Blood Pressure, For SBP >150 mmHg. Hold if HR <60/min lactulose (CHRONULAC) 10 GM/15ML solution 20 g 20 g, Oral, Once, 1 dose, On 01/24/25 at 1315 Given 01/24/2025 4:58 PM EDT 20 g magnesium sulfate 2000 mg in 50 mL IVPB premix 2,000 mg, IntraVENous, at 25 mL/hr, Administer over 2 Hours, PRN, Other, Per IV Magnesium Replacement Protocol, Starting on 01/22/25 at 0347, Mg Lab Replacement Action 1.4-1.6 2 gram IVPB x 1 doses (2 gram Total) 1.0-1.3 2 gram IVPB x 2 doses (4 gram Total) less than 1.0 CALL PHYSICIAN and 2 gram IVPB x 2 doses (4 gram Total) Infuse at 1 gram/hr Repeat Mag level 1 hour after final administration Protocol not for use in Patients with CrCl less than 30mL/min metroNIDAZOLE (FLAGYL) tablet 500 mg 500 mg, Oral, EVERY 6 HOURS SCHEDULED (4 times per day), 56 doses, First dose on Fri01/26/25 at 1200, Last dose on Fri02/09/25 at 0600, Antimicrobial Indications: Intra-Abdominal Infection Given 01/27/2025 5:56 AM EDT 500 mg Given 01/26/2025 11:39 PM EDT 500 mg Given 01/26/2025 4:55 PM EDT 500 mg ondansetron (ZOFRAN) injection 4 mg 4 mg, IntraVENous, EVERY 6 HOURS PRN, Starting on 01/22/25 at 0347, Until Andreea 01/27/25 at 1437, Nausea, Vomiting, Administer if oral route cannot be used. ondansetron (ZOFRAN-ODT) disintegrating tablet 4 mg 4 mg, Oral, EVERY 8 HOURS PRN, Starting on 01/22/25 at 0347, Until Andreea 01/27/25 at 1437, Nausea, Vomiting pantoprazole (PROTONIX) 40 mg in sodium chloride (PF) 0.9 % 10 mL injection 40 mg, IntraVENous, DAILY, First dose on 01/22/25 at 0900, Reconstitute with 10 mL 0.9 % sodium chloride and administer over at least 2 minutes. Given 01/22/2025 8:24 AM EDT 40 mg pantoprazole (PROTONIX) tablet 40 mg 40 mg, Oral, DAILY BEFORE BREAKFAST, First dose on Fri01/23/25 at 0830, Until Discontinued, Do not crush or break. Given 01/26/2025 6:01 AM EDT 40 mg Given 01/25/2025 6:14 AM EDT 40 mg Given 01/24/2025 8:15 AM EDT 40 mg pantoprazole (PROTONIX) tablet 40 mg 40 mg, Oral, 2 TIMES DAILY BEFORE MEALS, 28 doses, First dose (after last modification) on Fri01/26/25 at 1600, Last dose on Fri02/09/25 at 0700, Do not crush or break. Given 01/27/2025 5:56 AM EDT 40 mg Given 01/26/2025 4:55 PM EDT 40 mg polyethylene glycol (GLYCOLAX) packet 17 g 17 g, Oral, DAILY PRN, Starting on 01/22/25 at 0347, Until Andreea 01/27/25 at 1437, Constipation, First line therapy for constipation Given 01/23/2025 8:42 AM EDT 17 g potassium chloride 10 mEq/100 mL IVPB (Peripheral Line) 10 mEq, IntraVENous, PRN, Starting on 01/22/25 at 0347, Until Andreea 01/27/25 at 1437, at 100 mL/hr, Per IV Potassium Replacement Protocol, Use when central line is not available for replacement. K Lab Replacement Action 3.1-3.5 10 mEq IVPB x 4 doses (40 mEq Total) 2.7-3.0 10 mEq IVPB x 6 doses (60 mEq Total) less than 2.7 CALL PHYSICIAN and 10 mEq IVPB x 6 doses (60 mEq Total) Infuse at 10 mEq/hr Repeat Potassium lab 1 hour after final administration. Protocol not for use in Patients with CrCl less than 30mL/min potassium chloride 20 mEq/50 mL IVPB (Central Line) 20 mEq, IntraVENous, PRN, Starting on 01/22/25 at 0347, Until Andreea 01/27/25 at 1437, at 50 mL/hr, Per IV Potassium Replacement Protocol, Use first line when central line is available for replacement. K Lab Replacement Action 3.1-3.5 20 mEq IVPB x 2 doses (40 mEq Total) 2.7-3.0 20 mEq IVPB x 3 doses (60 mEq Total) less than 2.7 CALL PHYSICIAN and 20 mEq IVPB x 3 doses (60 mEq Total) Infuse at 20 mEq/hr Repeat Potassium lab 1 hour after final administration. Protocol not for use in Patients with CrCl less than 30mL/min predniSONE (DELTASONE) tablet 20 mg 20 mg, Oral, DAILY, 7 doses, First dose on Andreea 01/27/25 at 1000, Last dose on Fri02/02/25 at 0900 Given 01/27/2025 10:33 AM EDT 20 mg rosuvastatin (CRESTOR) tablet 10 mg 10 mg, Oral, NIGHTLY, 7 doses, First dose on Fri01/24/25 at 2100, Last dose on Fri01/30/25 at 2100 Given 01/26/2025 8:18 PM EDT 10 mg Given 01/25/2025 8:45 PM EDT 10 mg Given 01/24/2025 8:19 PM EDT 10 mg sennosides-docusate sodium (SENOKOT-S) 8.6-50 MG tablet 2 tablet 2 tablet, Oral, DAILY, 3 doses, First dose on Fri01/23/25 at 1330, Last dose on Fri01/25/25 at 0900 Given 01/25/2025 8:06 AM EDT 2 tablets Given 01/24/2025 8:15 AM EDT 2 tablets Given 01/23/2025 4:16 PM EDT 2 tablets sodium chloride flush 0.9 % injection 5-40 mL 5-40 mL, IntraVENous, EVERY 12 HOURS SCHEDULED (2 times per day), First dose on 01/22/25 at 0900, Until Discontinued, For Line Patency: Peripheral IV = 5 mL; Midline or Central Line = 10 mL/lumen. If following IV push medication, administer flush at same rate as the IV push. Flush volume is determined by type of infusion therapy being given. For non-viscous solutions use: Peripheral IV = 5 mL Midline or Central Line = 10 mL/lumen For viscous solutions (i.e. blood components, parenteral nutrition, contrast media, or after obtaining blood sample) use: Peripheral IV = 10 mL Midline or Central Line = 20 mL/lumen Given 01/27/2025 8:18 AM EDT 10 mLs Given 01/26/2025 8:21 PM EDT 10 mLs Given 01/26/2025 1:11 PM EDT 10 mLs sodium chloride flush 0.9 % injection 5-40 mL 5-40 mL, IntraVENous, PRN, Starting on 01/22/25 at 0347, Until Andreea 01/27/25 at 1437, Line Care, After every IV line use, For Line Patency: Peripheral IV = 5 mL; Midline or Central Line = 10 mL/lumen. If following IV push medication, administer flush at same rate as the IV push. Flush volume is determined by type of infusion therapy being given. For non-viscous solutions use: Peripheral IV = 5 mL Midline or Central Line = 10 mL/lumen For viscous solutions (i.e. blood components, parenteral nutrition, contrast media, or after obtaining blood sample) use: Peripheral IV = 10 mL Midline or Central Line = 20 mL/lumen tetracycline (ACHROMYCIN;SUMYCIN) capsule 500 mg 500 mg, Oral, 4 TIMES DAILY, 56 doses, First dose on Fri01/26/25 at 1300, Last dose on Fri02/09/25 at 0900, Antimicrobial Indications: Intra-Abdominal Infection, Suspected Organism(s): h pylori, This medication can interact with tube feedings (TF)- obtain MD order to manage. Recommend holding TF for 1 h before and 2 h after dose. Take 1 h before or 2 h after dairy, calcium, iron, magnesium, aluminum or zinc. Given 01/27/2025 8:17 AM EDT 500 mg Given 01/26/2025 8:17 PM EDT 500 mg Given 01/26/2025 4:55 PM EDT 500 mg documented in this encounter Active and Recently Administered Medications Times are shown in EDT. Scheduled Medication Order 01/25/2025 01/26/2025 01/27/2025 bismuth subsalicylate (PEPTO BISMOL) 262 MG/15ML suspension 30 mL 30 mL, Oral, 4 TIMES DAILY, 56 doses, First dose on Fri01/26/25 at 1300, Last dose on Fri02/09/25 at 0900 1311 (Given - Provider: Saumya Huizar RN)1655 (Given - Provider: Saumya Huizar RN)2017 (Given - Provider: Olga Lidia Garnett RN) 0817 (Given - Provider: Mili Weinberg RN) dexAMETHasone (DECADRON) 40 mg in sodium chloride 0.9 % 50 mL IVPB (COMPLETED) 40 mg, IntraVENous, at 200 mL/hr, Administer over 15 Minutes, EVERY 24 HOURS, First dose on Fri01/22/25 at 0730, For 4 days 0812 (New Bag - Provider: Carolyn Morgan, ROSALIE)0830 (Stopped - Provider: Carolyn Morgan RN) immune globulin (GAMUNEX-C) 10% solution 65,000 mg (COMPLETED) 65,000 mg (rounded from 66,000 mg = 1,000 mg/kg 66 kg), IntraVENous, ONCE, 1 dose, On Fri01/25/25 at 1845, Initial (first 30 minutes): 1 mg/kg/minute (0.6 mL/kg/hour); Maintenance: Increase gradually (if tolerated) to a maximum of 8 mg/kg/minute (4.8 mL/kg/hour). 2056 (New Bag - Provider: Olga Lidia Garnett RN) metroNIDAZOLE (FLAGYL) tablet 500 mg 500 mg, Oral, EVERY 6 HOURS SCHEDULED (4 times per day), 56 doses, First dose on Fri01/26/25 at 1200, Last dose on Fri02/09/25 at 0600, Antimicrobial Indications: Intra-Abdominal Infection 1311 (Given - Provider: Saumya Huizar RN)1655 (Given - Provider: Saumya Huizar RN)2339 (Given - Provider: Olga Lidia Garnett, ROSALIE) 0556 (Given - Provider: Olga Lidia Garnett, ROSALIE)1200 (Due) pantoprazole (PROTONIX) tablet 40 mg (CANCELED) 40 mg, Oral, DAILY BEFORE BREAKFAST, First dose on Fri01/23/25 at 0830, Until Discontinued, Do not crush or break. 0614 (Given - Provider: Olga Lidia Garnett, ROSALIE) 0601 (Given - Provider: Olga Lidia Garnett, ROSALIE) pantoprazole (PROTONIX) tablet 40 mg 40 mg, Oral, 2 TIMES DAILY BEFORE MEALS, 28 doses, First dose (after last modification) on Fri01/26/25 at 1600, Last dose on Fri02/09/25 at 0700, Do not crush or break. 1655 (Given - Provider: Saumya Huizar RN) 0556 (Given - Provider: Olga Lidia Garnett, RN) predniSONE (DELTASONE) tablet 20 mg 20 mg, Oral, DAILY, 7 doses, First dose on Fri01/27/25 at 1000, Last dose on Fri02/02/25 at 0900 1033 (Given - Provider: Mili Weinberg, RN) rosuvastatin (CRESTOR) tablet 10 mg 10 mg, Oral, NIGHTLY, 7 doses, First dose on Fri01/24/25 at 2100, Last dose on Fri01/30/25 at 2100 204 (Given - Provider: Olga Lidia Garnett, RN) 2017 (Given - Provider: Olga Lidia Garnett, RN) sennosides-docusate sodium (SENOKOT-S) 8.6-50 MG tablet 2 tablet (COMPLETED) 2 tablet, Oral, DAILY, 3 doses, First dose on Fri01/23/25 at 1330, Last dose on Fri01/25/25 at 0900 0806 (Given - Provider: Carolyn Morgan RN) sodium chloride flush 0.9 % injection 5-40 mL 5-40 mL, IntraVENous, EVERY 12 HOURS SCHEDULED (2 times per day), First dose on Fri01/22/25 at 0900, Until Discontinued, For Line Patency: Peripheral IV = 5 mL; Midline or Central Line = 10 mL/lumen. If following IV push medication, administer flush at same rate as the IV push. Flush volume is determined by type of infusion therapy being given. For non-viscous solutions use: Peripheral IV = 5 mL Midline or Central Line = 10 mL/lumen For viscous solutions (i.e. blood components, parenteral nutrition, contrast media, or after obtaining blood sample) use: Peripheral IV = 10 mL Midline or Central Line = 20 mL/lumen 0813 (Given - Provider: Carolyn Morgan RN)2044 (Given - Provider: Olga Lidia Garnett, ROSALIE) 131 (Given - Provider: Saumya Huizar RN)2020 (Given - Provider: Olga Lidia Garnett, RN) 0818 (Given - Provider: Mili Weinberg, RN) tetracycline (ACHROMYCIN;SUMYCIN) capsule 500 mg 500 mg, Oral, 4 TIMES DAILY, 56 doses, First dose on Fri01/26/25 at 1300, Last dose on Fri02/09/25 at 0900, Antimicrobial Indications: Intra-Abdominal Infection, Suspected Organism(s): h pylori, This medication can interact with tube feedings (TF)- obtain MD order to manage. Recommend holding TF for 1 h before and 2 h after dose. Take 1 h before or 2 h after dairy, calcium, iron, magnesium, aluminum or zinc. 1311 (Given - Provider: Saumya Shearer V RN)1655 (Given - Provider: Saumya Huizar RN)2017 (Given - Provider: Olga Lidia Garnett, ROSALIE) 0817 (Given - Provider: Mili Weinberg RN) PRN Medication Order 01/25/2025 01/26/2025 01/27/2025 0.9 % sodium chloride infusion IntraVENous, at 5-250 mL/hr, PRN, if patient receiving piggyback infusions and maintenance fluids are not ordered, Starting on 01/22/25 at 0347, For piggyback infusion, administer at same rate as piggyback for a total of 25 mL. Enter 25 mL into dose field and piggyback rate into rate field of order. If piggyback is infusing at a rate less than 100 mL/hr, enter 25 mL into dose field and 100 mL/hr into rate field of order. acetaminophen (TYLENOL) suppository 650 mg(Linked Group 1) 650 mg, Rectal, EVERY 6 HOURS PRN, Starting on 01/22/25 at 0347, Until Andreea 01/27/25 at 1437, Pain Mild (1-3), allowed for higher pain score per patient request, Fever, For temp greater than 100.4 F (38 C), Administer if oral route cannot be used. acetaminophen (TYLENOL) tablet 650 mg(Linked Group 1) 650 mg, Oral, EVERY 6 HOURS PRN, Starting on 01/22/25 at 0347, Until Andreea 01/27/25 at 1437, Pain Mild (1-3), allowed for higher pain score per patient request, Fever, For temp greater than 100.4 F (38 C), Maximum dose of acetaminophen is 4000 mg from all sources in 24 hours. albuterol (PROVENTIL) (2.5 MG/3ML) 0.083% nebulizer solution 2.5 mg 2.5 mg, Nebulization, EVERY 4 HOURS PRN, Starting on 01/22/25 at 0522, Until Andreea 01/27/25 at 1437, Wheezing, Shortness of Breath, Initiate RT Bronchodilator Protocol: Yes - Inpatient Protocol labetalol (NORMODYNE;TRANDATE) injection 10 mg 10 mg, IntraVENous, EVERY 4 HOURS PRN, Starting on 01/22/25 at 0507, Until Andreea 01/27/25 at 1437, High Blood Pressure, For SBP >150 mmHg. Hold if HR <60/min magnesium sulfate 2000 mg in 50 mL IVPB premix 2,000 mg, IntraVENous, at 25 mL/hr, Administer over 2 Hours, PRN, Other, Per IV Magnesium Replacement Protocol, Starting on 01/22/25 at 0347, Mg Lab Replacement Action 1.4-1.6 2 gram IVPB x 1 doses (2 gram Total) 1.0-1.3 2 gram IVPB x 2 doses (4 gram Total) less than 1.0 CALL PHYSICIAN and 2 gram IVPB x 2 doses (4 gram Total) Infuse at 1 gram/hr Repeat Mag level 1 hour after final administration Protocol not for use in Patients with CrCl less than 30mL/min ondansetron (ZOFRAN) injection 4 mg(Linked Group 2) 4 mg, IntraVENous, EVERY 6 HOURS PRN, Starting on 01/22/25 at 0347, Until Andreea 01/27/25 at 1437, Nausea, Vomiting, Administer if oral route cannot be used. ondansetron (ZOFRAN-ODT) disintegrating tablet 4 mg(Linked Group 2) 4 mg, Oral, EVERY 8 HOURS PRN, Starting on 01/22/25 at 0347, Until Andreea 01/27/25 at 1437, Nausea, Vomiting polyethylene glycol (GLYCOLAX) packet 17 g 17 g, Oral, DAILY PRN, Starting on 01/22/25 at 0347, Until Andreea 01/27/25 at 1437, Constipation, First line therapy for constipation potassium chloride 10 mEq/100 mL IVPB (Peripheral Line)(Linked Group 3) 10 mEq, IntraVENous, PRN, Starting on 01/22/25 at 0347, Until Andreea 01/27/25 at 1437, at 100 mL/hr, Per IV Potassium Replacement Protocol, Use when central line is not available for replacement. K Lab Replacement Action 3.1-3.5 10 mEq IVPB x 4 doses (40 mEq Total) 2.7-3.0 10 mEq IVPB x 6 doses (60 mEq Total) less than 2.7 CALL PHYSICIAN and 10 mEq IVPB x 6 doses (60 mEq Total) Infuse at 10 mEq/hr Repeat Potassium lab 1 hour after final administration. Protocol not for use in Patients with CrCl less than 30mL/min potassium chloride 20 mEq/50 mL IVPB (Central Line)(Linked Group 3) 20 mEq, IntraVENous, PRN, Starting on 01/22/25 at 0347, Until Andreea 01/27/25 at 1437, at 50 mL/hr, Per IV Potassium Replacement Protocol, Use first line when central line is available for replacement. K Lab Replacement Action 3.1-3.5 20 mEq IVPB x 2 doses (40 mEq Total) 2.7-3.0 20 mEq IVPB x 3 doses (60 mEq Total) less than 2.7 CALL PHYSICIAN and 20 mEq IVPB x 3 doses (60 mEq Total) Infuse at 20 mEq/hr Repeat Potassium lab 1 hour after final administration. Protocol not for use in Patients with CrCl less than 30mL/min sodium chloride flush 0.9 % injection 5-40 mL 5-40 mL, IntraVENous, PRN, Starting on 01/22/25 at 0347, Until Andreea 01/27/25 at 1437, Line Care, After every IV line use, For Line Patency: Peripheral IV = 5 mL; Midline or Central Line = 10 mL/lumen. If following IV push medication, administer flush at same rate as the IV push. Flush volume is determined by type of infusion therapy being given. For non-viscous solutions use: Peripheral IV = 5 mL Midline or Central Line = 10 mL/lumen For viscous solutions (i.e. blood components, parenteral nutrition, contrast media, or after obtaining blood sample) use: Peripheral IV = 10 mL Midline or Central Line = 20 mL/lumen Linked Groups Order Group 1: acetaminophen (TYLENOL) tablet 650 mgJump to med 650 mg, Oral, EVERY 6 HOURS PRN, Starting on 01/22/25 at 0347, Until Andreea 01/27/25 at 1437, Pain Mild (1-3), allowed for higher pain score per patient request, Fever, For temp greater than 100.4 F (38 C), Maximum dose of acetaminophen is 4000 mg from all sources in 24 hours. Or acetaminophen (TYLENOL) suppository 650 mgJump to med 650 mg, Rectal, EVERY 6 HOURS PRN, Starting on 01/22/25 at 0347, Until Andreea 01/27/25 at 1437, Pain Mild (1-3), allowed for higher pain score per patient request, Fever, For temp greater than 100.4 F (38 C), Administer if oral route cannot be used. Group 2: ondansetron (ZOFRAN-ODT) disintegrating tablet 4 mgJump to med 4 mg, Oral, EVERY 8 HOURS PRN, Starting on 01/22/25 at 0347, Until Andreea 01/27/25 at 1437, Nausea, Vomiting Or ondansetron (ZOFRAN) injection 4 mgJump to med 4 mg, IntraVENous, EVERY 6 HOURS PRN, Starting on 01/22/25 at 0347, Until Andreea 01/27/25 at 1437, Nausea, Vomiting, Administer if oral route cannot be used. Group 3: potassium chloride 20 mEq/50 mL IVPB (Central Line)Jump to med 20 mEq, IntraVENous, PRN, Starting on 01/22/25 at 0347, Until Andreea 01/27/25 at 1437, at 50 mL/hr, Per IV Potassium Replacement Protocol, Use first line when central line is available for replacement. K Lab Replacement Action 3.1-3.5 20 mEq IVPB x 2 doses (40 mEq Total) 2.7-3.0 20 mEq IVPB x 3 doses (60 mEq Total) less than 2.7 CALL PHYSICIAN and 20 mEq IVPB x 3 doses (60 mEq Total) Infuse at 20 mEq/hr Repeat Potassium lab 1 hour after final administration. Protocol not for use in Patients with CrCl less than 30mL/min Or potassium chloride 10 mEq/100 mL IVPB (Peripheral Line)Jump to med 10 mEq, IntraVENous, PRN, Starting on 01/22/25 at 0347, Until Andreea 01/27/25 at 1437, at 100 mL/hr, Per IV Potassium Replacement Protocol, Use when central line is not available for replacement. K Lab Replacement Action 3.1-3.5 10 mEq IVPB x 4 doses (40 mEq Total) 2.7-3.0 10 mEq IVPB x 6 doses (60 mEq Total) less than 2.7 CALL PHYSICIAN and 10 mEq IVPB x 6 doses (60 mEq Total) Infuse at 10 mEq/hr Repeat Potassium lab 1 hour after final administration. Protocol not for use in Patients with CrCl less than 30mL/min documented in this encounter Care Teams Vp Director Of Finance Relationship Specialty Start Date End Date Davion Stephenson DO [address] [place] [id number] PCP - General Family Medicine 01/22/25 documented as of this encounter
--- OUTSIDE RECORDS SUMMARY | 2025-02-02 17:00 | XMS_ITS | Encounter Summary ---
Author Organization [facility] Address [address] [facility] [place] [address] Care Team Providers Care Public Relations Specialist Name Role Phone Davion Stephenson Primary Care Provider + [phone] Reason for Visit * Reason Comments Follow-up Hospital stay low pl atelets Encounter Details Date Type Department Care Team (Latest Contact Info) Description 02/02/2025 5:00 PM EDT Office Visit [facility] Part of [address] [address] Darryl Hendrix MD [address] [place] [address] Thrombocytopenia (Primary Dx) Social History Tobacco Use Types Packs/Day Years Used Date Smoking Tobacco: Former Cigarettes 0.5 34.2 S tarted: 09/01/1990 Smokeless Tobacco: Never Alcohol Use Standard Drinks/Week Comments Never 0 (1 standard drink = 0.6 oz pur e alcohol) [facility] Utilities Answer Date Recorded In the past 12 months has th e [employer], gas, oil, or water [employer] threatened to shut off services in your [...] any time in the past 12 m [facility], were you homeless or living in a care home (including now)? No 01/22/2025 Food Insecurity [...] Description 03/09/2025 2:45 PM EDT Office Visit [facility] Part of [address] [address] Darryl Hendrix MD [address] [place] [address] F/U hospital stay low platelets documented as of this encounter Visit Diagnoses Diagnosis Thrombocytopenia- Primary Thrombocytopenia, unspecified documented in this encounter Care Teams Public Relations Specialist Relationship Specialty Start Date End Date Davion Stephenson DO [address] [place] [phone] PCP - General Family Medicine 01/22/25 documented as of this encounter
--- OUTSIDE RECORDS SUMMARY | 2025-02-03 11:30 | XMS_ITS | Encounter Summary ---
Author Organization [facility] tem Address [id number] [address] [place] [address] Care Team Providers Care Construction Trades Teacher Name Role Phone Davion Stephenson DO Primary Care Provider + [phone] Reason for Visit * Reason Comments TCM Encounter Details Date Type Department Care Team (Late st Contact Info) Description 02/03/2025 11:30 AM EDT Office Visit [facility] - Family Medicine [address] [place] [address] Davion Stephenson DO [address], [place] [address] Idiopathic thrombocytopenic purpura (CMS-HCC) (Primary Dx); H. pylori infection; Abdominal aortic aneurysm (AAA) without rupture, unspecified part Social History Tobacco Use Types Packs/Day Years Used Date Smoking Tobacco: Former Cigarettes 1.7 45.3 0 1979 - 12/22/2024 Smokeless Tobacco: Former Comments:Reports quit 2 ken hs ago Alcohol Use Standard Drinks/Week Comments Not Currently 0 (1 standard drink = 0.6 oz pur e alcohol) [facility] Utilities Answer Date Recorded In the past 12 months has [employer] electric, gas, oil, or water company [...] week 07/08/2024 How often do you attend tenriism or sabianism serv ices? Never 07/08/2024 Do you belong to any clubs o r organizations such as tenriism groups, unions, fraternal or athletic groups, or [...] PHQ-2 Answer Date Recorded Total Score 0 02/03/2025 [facility] of Occupat ional Health - Occupational [...] Recorded Do you need help finding a [facility] career center and/or a training program? No 07/08/2024 Hunger Screening Answer Date Recorded Within the past 12 months we worried whether our food would run out before we got money to buy more. Never True 02/03/2025 Within the past 12 months th e food we bought just didn't last and we didn't have money to get more. Never True 02/03/2025 Purpose - Life Answer Date Recorded I [...] Sign Reading Time Taken Comments Blood Pressure 100/68 02/03/2025 11:15 AM EDT Pulse 109 02/03/2025 11:15 AM EDT Temperature 36.7 C (98.1 F) 02/03/2025 11:15 AM EDT Respiratory Rate 18 02/03/2025 11:15 AM EDT Oxygen Saturation 98% 02/03/2025 11:15 AM EDT Inhaled Oxygen Concentration - - Weight 73.1 kg (161 lb 3.2 oz) 02/03/2025 11:15 AM EDT Height 180.3 cm (5' 10.98 ) 02/03/2025 11:15 AM EDT Body Mass Index 22.49 02/03/2025 11:15 AM EDT documented in this encounter Progress Notes * Davion Stephenson, DO - 02/03/2025 11:30 AM EDT Subjective Patient ID: Ambrosio Blunt is a 64 y.o. male. The patient is here today for discharge follow up from hospital. Transition of Care Med Rec completed? Yes Discharged medications: Medications have been reviewed and reconciled with the most recent facilitydischarge document. Devin presents today for a hospital follow-up. 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 He was having some bleeding issues at the site of his incisions. He went to the ER and they did blood tests and then transferred him to [facility]. He saw the blood specialists there. He was told that he had low platelets likely due from Helicobacter pylori infection. He might have gotten it from surgery. He had no heartburn issues. He is currently on antibiotics to treat the infection. He does not have any bleeding issues at this time. He does have little bruising on the back ofhis right hand and in his antecubital fossa from Ivs. He would like his wounds checked. It has been1 month since he had his aneurysm repaired. They put new dressings on last week at the hospital. Heis not taking them off since. He was not told what he can and can not do when he left the hospital.After the surgery was told not to lift greater than 50 lb. They did mentioned that he should not cut himself. He saw the client resource specialist yesterday and his platelet count was improving. He is on prednisone and does note that he sometimes gets dizzy when he gets up too fast. He admits that he does not drink any water. He is also having issues with constipation. He goes every other day but his stools are a 5 on the Evangeline stool scale. He admits to eating very little fiber. He was given MiraLax at the hospital and it says to take as needed but he is not sure when he should take it. The following portions of the patient's history were reviewed and updated as appropriate: allergies, current medications, past family history, past medical history, past social history, past surgicalhistory, problem list, and medication reconciliation was completed including current medication andpost discharge medication. Review of Systems Constitutional: Negative. HENT: Negative. Eyes: Negative. Respiratory: Negative. Cardiovascular: Negative. Gastrointestinal: Positive for constipation. Genitourinary: Negative. Skin: Positive for color change. Hematological: Bruises/bleeds easily (Bruise on back of hand and antecubital fossa from IVs but does not bruise easily). Objective Physical Exam Vitals reviewed. Constitutional: General: He is not in acute distress. Appearance: He is not ill-appearing. HENT: Head: Normocephalic. Cardiovascular: Rate and Rhythm: Normal rate and regular rhythm. Heart sounds: Normal heart sounds. Pulmonary: Effort: No respiratory distress. Breath sounds: Normal breath sounds. No wheezing, rhonchi or rales. Musculoskeletal: Cervical back: Neck supple. Skin: Findings: Bruising (Diffuse area of bruising on the back of right hand and in the antecubital fossaon the right arm) present. Neurological: General: No focal deficit present. Mental Status: He is alert and oriented to person, place, and time. Psychiatric: Attention and Perception: Attention normal. Mood and Affect: Mood and affect normal. Speech: Speech normal. Behavior: Behavior normal. Thought Content: Thought content normal. Cognition and Memory: Cognition normal. Judgment: Judgment normal. Assessment/Plan Ambrosio was seen today for tcm. Diagnoses and all orders for this visit: Idiopathic thrombocytopenic purpura (CMS-HCC) Platelets are rising. Follow-up with Hematology as directed. Finish prednisone. Encouraged to drinkmore fluids the see if that helps with his dizziness. H. pylori infection Finish antibiotic. Maybe contributing to ITP. May have had the infection prior to his hospitalization but there was no way of knowing for sure. Abdominal aortic aneurysm (AAA) without rupture, unspecified part Seems to be doing well from a clinical standpoint. Incisions are healing well. We did remove the dressings and put Steri-Strips on the right incision. There was a small linear scab but no drainage orbleeding noted. There was no redness or swelling. The left incision is closed entirely. Skin was intact with no redness or swelling. documented in this encounter Plan of Treatment Upcoming Encounters Date Type Department Care Team (Late st Contact Info) Description 07/06/2025 10:15 AM EST Office Visit [facility] Internal Medicine - Family Medicine [address] [place] [address] Davion Stephenson DO [address], [facility] [place] [address] 07/11/2025 10:30 AM EST [facility] [address] [place] [address] Davion Stephenson DO [address] [place] [address] documented as of this encounter Visit Diagnoses Diagnosis Idiopathic thrombocytopenic purpura (CMS-HCC)- Primary Immune thrombocytopenic purpura H. pylori infection Helicobacter pylori (H. pylori) Abdominal aortic aneurysm (AAA) without rupture, unspecified part documented in this encounter Additional Health Concerns Assessment Noted Time PHQ-9 Depression Total Score: 0 02/04/20 25 11:13 AM EDT documented as of this encounter Care Teams Construction Trades Teacher Relationship Specialty Start Date End Date Davion Stephenson DO [address] [facility], [place] [address] PCP - General Family Medicine 07/10/22 documented as of this encounter
--- OUTSIDE RECORDS SUMMARY | 2025-02-07 10:05 | XMS_ITS | Referral Summary ---
Author Organization [facility] Address [address] [place] [address] Care Team Providers Care Electrician Sound Name Role Phone Davion Stephenson DO Primary Care Provider [phone] Encounters Date Type Department Care Team Description 12/21/2024 Telephone [facility] [address] [place] [address] Mary Rangel MA 11/29/2024 11:40 AM EDT Office Visit [facility] [address] [place] [address] Vasquez Louis MD Pre-op evaluation [...] ORDERABLES from Last 3 Months Care Teams Electrician Sound Relationship Specialty Start Date End Date Davion Stephenson DO [address], [place] [address] PCP - General Family Medicine 11/29/24
--- OUTSIDE RECORDS SUMMARY | 2025-02-07 10:05 | XMS_ITS | Encounter Summary ---
Author Organization [employer] tem Address [id number] [address] [place] [address] Care Team Providers Care Soap Grinder Name Role Phone Davion Stephenson Primary Care Provider + [phone] Encounter Details Date Type Department Care Team (Late st Contact Info) Description 11/22/2024 Orders Only [facility] Internal Medicine - Family Medicine [address] [place] [address] Alejandrina Felipe CMA Abdominal aortic aneurysm (AAA) without rupture, unspecified part ([facility]) Social History Tobacco Use Types Packs/Day Years Used Date Smoking Tobacco: Every Day Cigarettes 0.5 20 Smokeless Tobacco: Never Alcohol Use Standard Drinks/Week Comments Not Currently 0 (1 standard drink = 0.6 oz pur e alcohol) [facility] Utilities Answer Date Recorded In the past [...] week 07/08/2024 How often do you attend zoroastrianism or hindu serv ices? Never 07/08/2024 Do you belong to any clubs o r organizations such as zoroastrianism groups, unions, fraternal or athletic groups, or [...] Answer Date Recorded Total Score 0 11/15/2024 [facility] of Occupat ional Health [...] a purpose and direction in my life. Mary Annn gly Agree 07/08/2024 Sex and Gender Information Value Date Recorded Sex Assigned at Not on file Legal Sex Male 1:44 PM EST Gender Identity Not on file Sexual Orientation Not on file documented as of this encounter Plan of Treatment Upcoming Encounters Date Type Department Care Team (Late st Contact Info) Description 07/06/2025 10:15 AM EST Office Visit [facility] Medicine - Family Medicine [address] [place] [address] Davion Stephenson DO [address], [place] [address] 07/11/2025 10:30 AM EST Office Visit [facility] - Family Medicine [address] [place] [address] Davion Stephenson DO [address], [place] [address] documented as of this encounter Procedures Procedure Name Priority Date/Time Associated Diagnosis Comments US RETROPERITONEAL LIMITED Routine 11/22 10:00 AM EDT Abdominal aortic aneurysm (AAA) without rupture, unspecified part ([facility]) documented in this encounter Results * Ultrasound [...] documented as of this encounter Care Teams Soap Grinder Relationship Specialty Start Date End Date Davion Stephenson DO [address], [place] [address] PCP - General Family Medicine 07/10/22 documented as of this encounter
--- OUTSIDE RECORDS SUMMARY | 2025-02-07 10:05 | XMS_ITS | Encounter Summary ---
Author Organization [facility] Address [address] [place] [address] Care Team Providers Care Serging Machine Operator Automatic Name Role Phone Davion Stephenson DO Primary Care Provider + [phone] Encounter Details Date Type Department Care Team (Late st Contact Info) Description 02/02/2025 Orders Only [facility] Part of [address] [address] Darryl Hendrix MD [address] [place], [place] [id number] Thrombocytopenia (Primary Dx) Social History Tobacco Use Types Packs/Day Years Used Date Smoking Tobacco: Former Cigarettes 0.5 34.2 S tarted: 09/01/1990 Smokeless Tobacco: Never Alcohol Use Standard Drinks/Week Comments Never 0 (1 standard drink = 0.6 oz pur e alcohol) [facility] Utilities Answer Date Recorded In the past 12 months has e [employer], gas, oil, or water [employer] threatened to shut off services in your [...] any time in the past 12 [facility], were you homeless or living in a fpc (including now)? No 01/22/2025 Food Insecurity Answer [...] Description 03/09/2025 2:45 PM EDT Office Visit [facility] Part of [address] [address] Darryl Hendrix MD [address] [place] [address] F/U hospital stay low platelets Scheduled Orders Name Type Priority Associated Diagnoses Orde r Schedule CBC with Auto Differential Lab STAT Thrombocytopenia weekly for 10 Occurrences starting 02/02/2025 until 02/02/2026 documented as of this encounter Visit Diagnoses Diagnosis Thrombocytopenia- Primary Thrombocytopenia, unspecified documented in this encounter Care Teams Serging Machine Operator Automatic Relationship Specialty Start Date End Date Davion Setphenson DO [address] [place] [address] PCP - General Family Medicine 01/22/25 documented as of this encounter
--- OUTSIDE RECORDS SUMMARY | 2025-02-07 10:05 | XMS_ITS | Encounter Summary ---
Author Organization [email or web address] tem Address [id number] [address] [place] [address] Care Team Providers Care Heel Former Name Role Phone Davion Stephenson Primary Care Provider + [phone] Encounter Details Date Type Department Care Team (Late st Contact Info) Description 01/05/2025 Orders Only [facility] - Family Medicine [address] [place] [address] Ref Prov, [place] [address] Social History Tobacco Use Types Packs/Day Years Used Date Smoking Tobacco: Former Cigarettes 0.5 20 Smokeless Tobacco: Former Comments:Reports quit 2 ken hs ago Alcohol Use Standard Drinks/Week Comments Not Currently 0 (1 standard drink = 0.6 oz pur e alcohol) [facility] Utilities Answer Date Recorded In the past [...] week 07/08/2024 How often do you attend yarsani or congregation serv ices? Never 07/08/2024 Do you belong to any clubs o r organizations such as yarsani groups, unions, fraternal or athletic groups, or [...] Answer Date Recorded Total Score 0 11/15/2024 [facility] of Occupat ionhi Health - Occupational Stress Questionnaire Answer Date [...] Recorded Do you need help finding a [employer] [facility] [facility] career center and/or a training program? No [...] - Family Medicine [address] [place] [address] Davion Stephenson DO [address], [place] [address] 07/11/2025 10:30 AM EST Office Visit [facility] - Family Medicine [address] [place] [address] Davion Stephenson DO [address], [place] [address] documented as of this encounter Procedures Procedure [...] documented as of this encounter Care Teams Heel Former Relationship Specialty Start Date End Date Davion Stephenson DO [address], [place] [address] PCP - General Family Medicine 07/10/22 documented as of this encounter
--- OUTSIDE RECORDS SUMMARY | 2025-02-07 10:05 | XMS_ITS | Clinical Summary ---
Author Organization [facility] Address [address] [place] [address] Care Team Providers Care Janitor And Cleaner Name Role Phone Davion Stephenson DO Primary Care Provider Allergies No known active allergies Medications Medication [...] Type Department Care Team Description 12/21/2024 Telephone [facility] [address] [place] [address] Mary Rangel MA 11/29/2024 11:40 AM EDT Office Visit [facility] [address] [place] [address] Vasquez Louis MD Pre-op evaluation [...] ORDERABLES from Last 3 Months Care Teams Janitor And Cleaner Relationship Specialty Start Date End Date Davion Stephenson DO [address], [place] [address] PCP - General Family Medicine 11/29/24
--- OUTSIDE RECORDS SUMMARY | 2025-02-07 10:06 | XMS_ITS | Encounter Summary ---
Author Organization [employer] tem Address [id number] [address] [place] [address] Care Team Providers Care Heel Lift Gouger Name Role Phone Davion Stephenson Primary Care Provider + [phone] Encounter Details Date Type Department Care Team (Late st Contact Info) Description 01/13/2025 Orders Only [facility] - Family Medicine [address] [place] [address] Ref Prov, [place] [address] Social History Tobacco Use Types Packs/Day Years Used Date Smoking Tobacco: Former Cigarettes 1.7 45.3 0 1979 - 12/22/2024 Smokeless Tobacco: Former Comments:Reports quit 2 ken hs ago Alcohol Use Standard Drinks/Week Comments Not Currently 0 (1 standard drink = 0.6 oz pur e alcohol) [facility] Utilities Answer Date Recorded In the past 12 months has [employer] electric, gas, oil, or water company threatened [...] week 07/08/2024 How often do you attend yarsanism or bahai serv ices? Never 07/08/2024 Do you belong to any clubs o r organizations such as yarsanism groups, unions, fraternal or athletic groups, or [...] Answer Date Recorded Total Score 0 01/13/2025 [facility] of Occupat ional Health - Occupational Stress [...] Recorded Do you need help finding a [facility] and/or a training program? [...] purpose and direction in my life. Parminder davies Agree 07/08/2024 Sex and Gender Information Value [...] - Family Medicine [address] [place] [address] Davion Stephenson, [address], [place] [address] 07/11/2025 10:30 AM EST Office Visit [facility] - Family Medicine [address] [place] [address] Davion Stephenson DO [address] [facility], [place] [address] documented as of this encounter Procedures Procedure Name Priority Date/Time Associated Diagnosis Comments MULTIPLE LABS Routine 12/27/2024 10:57 AM EDT NUC STRESS LEXISCAN Routine 12/10/2024 10:51 AM EDT documented in this encounter Results * Multiple labs (12/27/2024 10:57 AM EDT) us Not In System Ref Prov FL IMAGING Final Res ult MANUALLY TRANSCRIBED RESULTS [...] as of this encounter Care Teams Heel Lift Gouger Relationship Specialty Start Date End Date Davion Stephenson DO [address] [facility], [place] [address] PCP - General Family Medicine 07/10/22 documented as of this encounter
--- OUTSIDE RECORDS SUMMARY | 2025-02-07 10:06 | XMS_ITS | Encounter Summary ---
Author Organization [employer] tem Address [facility] [id number] [address] [place] [address] Care Team Providers Care Pole Tester Name Role Phone Davion Stephenson Primary Care Provider + [phone] Encounter Details Date Type Department Care Team (Late st Contact Info) Description 01/31/2025 Orders Only [facility] - Family Medicine [address] [place] [address] Ref Prov, [place] [address] Social History Tobacco Use Types Packs/Day Years Used Date Smoking Tobacco: Former Cigarettes 1.7 45.3 0 1979 - 12/22/2024 Smokeless Tobacco: Former Comments:Reports quit 2 ken hs ago Alcohol Use Standard Drinks/Week Comments Not Currently 0 (1 standard drink = 0.6 oz pur e alcohol) [facility] Utilities Answer Date Recorded In the past 12 months has [employer] electric, gas, oil, or water company threatened [...] week 07/08/2024 How often do you attend confucianist or jainism serv ices? Never 07/08/2024 Do you belong to any clubs o r organizations such as confucianist groups, unions, fraternal or athletic groups, or [...] Answer Date Recorded Total Score 0 02/03/2025 [facility] - Occupational [...] Recorded Do you need help finding a [facility] and/or a training [...] - Family Medicine [address] [place] [address] Davion Stephenson DO [address], [place] [address] 07/11/2025 10:30 AM EST Office Visit [facility] - Family Medicine [address] [place] [address] Davion Stephenson DO [address], [place] [address] documented as of this encounter Procedures Procedure Name Priority Date/Time Associated Diagnosis Comments CBC W AUTO DIFF BLD Routine 01/31/2025 1:38 PM EDT documented in this encounter Results * CBC W Auto Diff Bld (01/31/2025 1:38 PM EDT) us Not In System Ref Prov LAB BLOOD ORDERABLES Yamile l Result MANUALLY TRANSCRIBED RESULTS documented in this encounter Visit Diagnoses Not on filedocumented in this encounter Additional Health Concerns Assessment Noted Time PHQ-9 Depression Total Score: 0 01/14/20 25 1:49 PM EDT documented as of this encounter Care Teams Pole Tester Relationship Specialty Start Date End Date Davion Stephenson DO [address] [place] [address] PCP - General Family Medicine 07/10/22 documented as of this encounter
--- OUTSIDE RECORDS SUMMARY | 2025-02-07 10:06 | XMS_ITS | Encounter Summary ---
Author Organization [employer] tem Address [facility] [place]-[id number] [address] [place] [address] Care Team Providers Care Sand Screener Operator Name Role Phone Davion Stephenson DO Primary Care Provider + [phone] Encounter Details Date Type Department Care Team (Late Contact Info) Description 11/29/2022 Orders Only [facility] - Family Medicine [address] [place] [id number] Vesta Schwartz, MORTGAGE LOAN REVIEWER-NATIONAL SALES MANAGER [address] [place] [address] [place], [place] [id number] Social History Tobacco Use Types Packs/Day Years [...] Department Care Team (Late Contact Info) Description 07/06/2025 10:15 AM EST Office Visit [facility] - Family Medicine [address] [place] [address] Davion Stephenson DO [address] [place] [address] 07/11/2025 10:30 AM EST Office Visit [facility] - Family Medicine [address] [place] [address] Davion Stephenson DO [address], [place] [address] documented as of this encounter Visit Diagnoses Not on filedocumented in this encounter Care Teams Sand Screener Operator Relationship Specialty Start Date End Date Davion Stephenson DO [address], [address] [place], [place] [phone] PCP - General Family Medicine 07/10/22 documented as of this encounter
--- OUTSIDE RECORDS SUMMARY | 2025-02-07 10:06 | XMS_ITS | Encounter Summary ---
Author Organization [employer] Address [facility] [id number] [address] [place] [address] Care Team Providers Care Cyber Policy And Strategy Planner Name Role Phone Davion Stephenson Primary Care Provider + [phone] Encounter Details Date Type Department Care Team (Late st Contact Info) Description 01/05/2025 Telephone [facility] - Family Medicine [address] [place] [phone] Vanessa Umaña CMA Social History Tobacco Use Types Packs/Day Years Used Date Smoking Tobacco: Former Cigarettes 0.5 20 Smokeless Tobacco: Former Comments:Reports quit 2 ken hs ago Alcohol Use Standard Drinks/Week Comments Not Currently 0 (1 standard drink = 0.6 oz pur e alcohol) [facility] Utilities Answer Date Recorded In the past 12 months has [employer] electric, gas, oil, or water company threatened [...] week 07/08/2024 How often do you attend episcopal or adventism serv ices? Never 07/08/2024 Do you belong to any clubs o r organizations such as episcopal groups, unions, fraternal or athletic groups, or [...] Answer Date Recorded Total Score 0 11/15/2024 [facility] - Occupational [...] Recorded Do you need help finding a [facility] career [facility] and/or a training [...] - Family Medicine [address] [place] [address] Davion Stephenson DO [address], [place] [address] 07/11/2025 10:30 AM EST Office Visit [facility] - Family Medicine [address] [place] [address] Davion Stephenson DO [address], [place] [address] documented as of this encounter Visit Diagnoses Not on filedocumented in this encounter Additional Health Concerns Assessment Noted Time PHQ-9 Depression Total Score: 0 11/16/19 25 8:29 AM EDT documented as of this encounter Care Teams Cyber Policy And Strategy Planner Relationship Specialty Start Date End Date Davion Stephenson DO [address], [place] [address] PCP - General Family Medicine 07/10/22 documented as of this encounter
--- OUTSIDE RECORDS SUMMARY | 2025-02-07 10:06 | XMS_ITS | Encounter Summary ---
Author Organization [employer] tem Address [facility] [id number] [address] [place] [address] Care Team Providers Care Weathercaster Name Role Phone Davion Stephenson Primary Care Provider + [phone] Encounter Details Date Type Department Care Team (Late st Contact Info) Description 01/28/2025 Orders Only [facility] - Family Medicine [address] [place] [address] Ref Prov, [place] [address] Social History Tobacco Use Types Packs/Day Years Used Date Smoking Tobacco: Former Cigarettes 1.7 45.3 0 1979 - 12/22/2024 Smokeless Tobacco: Former Comments:Reports quit 2 ken hs ago Alcohol Use Standard Drinks/Week Comments Not Currently 0 (1 standard drink = 0.6 oz pur e alcohol) [facility] Utilities Answer Date Recorded In the past 12 months has [employer] electric, gas, oil, or water company threatened [...] week 07/08/2024 How often do you attend hindu or episcopalian serv ices? Never 07/08/2024 Do you belong to any clubs o r organizations such as hindu groups, unions, fraternal or athletic groups, or [...] Answer Date Recorded Total Score 0 01/13/2025 [facility] - [...] Recorded Do you need help finding a [facility] career [facility] and/or a training [...] - Family Medicine [address] [place] [address] Davion Stephenson DO [address], [place] [address] 07/11/2025 10:30 AM EST Office Visit [facility] - Family Medicine [address] [place] [address] Davion Stephenson DO [address], [place] [address] documented as of this encounter Procedures Procedure [...] documented as of this encounter Care Teams Weathercaster Relationship Specialty Start Date End Date Davion Stephenson DO [address], [place] [address] PCP - General Family Medicine 07/10/22 documented as of this encounter
--- OUTSIDE RECORDS SUMMARY | 2025-02-07 10:06 | XMS_ITS | Clinical Summary ---
Author Organization [facility] Address [address] [place] [address] Care Team Providers Care Dining Manager Name Role Phone Davion Stephenson Primary Care Provider Allergies Active Allergy Reactions Criticality Noted Date [...] for 30 doses 30 tablet 2024 Active bismuth subsalicylate (PEPTO BISMOL) [...] as needed for Constipation 30 packet 2024 Active predniSONE (DELTASONE) 5 MG tablet Take 4 tablets every morning for 7 days, 3 tablets daily for 7 days, 2 tablets daily for 7 days, then 1 tablet daily 100 tablet 2 Active metroNIDAZOLE (FLAGYL) 500 MG tablet Take [...] 4 times daily for 52 doses 2024 Discontinued pantoprazole (PROTONIX) 40 MG tablet Take 1 tablet by mouth 2 times daily (before meals) for 14 days 28 tablet 025 2024 Discontinued polyethylene glycol (GLYCOLAX) 17 g packet Take 1 packet by mouth daily as needed for Constipation 30 packet 025 2024 Discontinued predniSONE (DELTASONE) 20 MG tablet Take 1 tablet by mouth daily for 7 doses 7 tablet 025 2024 Discontinued predniSONE (DELTASONE) 20 MG tablet Take 1 tablet by mouth daily for 7 doses 7 tablet 025 2024 Active Problems Problem Noted Date Diagnosed Date H. pylori infection 01/26/2025 S/P AAA repair 01/23/2025 Thrombocytopenia 01/22/2025 Rash 01/22/2025 Encounters Date Type Department Care Team Description 02/02/2025 5:00 PM EDT Office Visit [facility] Part of [address] [address] Darryl Hendrix MD Thrombocytopenia (Primary Dx) 02/02/2025 Orders Only [facility] Part of [address] [id number] Darryl Hendrix MD Thrombocytopenia (Primary Dx) 01/22/2025 3:32 AM EDT - 01/27/2025 12:35 PM EDT Hospital Encounter [facility] Onc/Med Surg [address] [place] [address] Uzair Wilson MD Retholtz, Michael T, DO [...] drink = 0.6 oz pur e alcohol) [facility] Utilities Answer Date Recorded In [...] any time in the past 12 m [facility], were you homeless or living in a usp (including now)? No 01/22/2025 Food Insecurity Answer [...] 18 02/02/2025 5:05 PM EDT Oxygen Saturation 100% 01/27/2025 8:06 AM EDT Inhaled Oxygen Concentration - - Weight 73 kg (161 lb) 02/02/2025 5:05 PM EDT Height 180.3 cm (5' 11 ) 02/02/2025 5:05 PM EDT Body Mass Index 22.45 02/02/2025 5:05 PM EDT Plan of Treatment Upcoming Encounters Date Type Department Care Team (Late st Contact Info) Description 03/09/2025 2:45 PM EDT Office Visit [facility] Part of [address] [address] Darryl Hendrix MD [address] [place] [address] F/U hospital stay low platelets Health Maintenance Due Date Last Done Comments Lipids 1970 Depression Screen 1972 DTaP/Tdap/Td vaccine (1 - Tdap) 1979 Colonoscopy 2005 Colorectal Cancer Screen 2005 FIT/FOBT: Average risk 2005 Fecal-DNA (Cologuard): [place] ge risk 2005 Sigmoidoscopy/CT colonography 2005 Pneumococcal 50+ years Vacci ne (1 of 1 - PCV) 2010 Shingles vaccine (1 of 2) 2010 COVID-19 Vaccine (2023-2 5 season) 2024 Flu vaccine (Season Ended) [...] & FOLATE Routine 01/23/2025 9:02 AM EDT [id number] ACTIVITY Routine 01/23/2025 9:0 2 AM EDT [...] - 145 mmol/L 01/27/2025 6:04 AM EDT [facility] Potassium 4.3 3.7 - 5.3 mmol/L 01/27/2025 6:04 AM EDT [facility] Comment: Specimen hemolysis has exceeded the interference as defined by Aidan. Value may be falsely increased. Suggest recollection if clinically indicated. Chloride 102 98 - 107 mmol/L 01/27/2025 6:04 AM EDT [facility] CO2 21 20 - 31 mmol/L 01/27/2025 6:04 AM EDT [facility] Anion Gap 8(L) 9 - 16 mmol/L 01/27/2025 6:04 AM EDT [facility] Glucose 81 74 - 99 mg/dL 01/27/2025 6:04 AM EDT [facility] BUN 15 8 - 23 mg/dL 01/27/2025 6:04 AM EDT [facility] Creatinine 0.7 0.7 - 1.2 mg/dL 01/27/2025 6:04 AM EDT [facility] Est, Glom Filt Rate >90 >60 mL/min/1. 73m2 01/27/2025 6:04 AM EDT [facility] Comment: These results are not intended for [...] - 10.4 mg/dL 01/27/2025 6:04 AM EDT [facility] Blood BLOOD SPECIMEN / Unknown 01/27/2025 6:04 AM EDT 01/27/2025 6:26 AM EDT us Milind Corley MD CHEMISTRY ORDERABLES Final Resu lt [facility] [address] [id number], [facility] [phone] * (ABNORMAL) CBC with Auto Differential (01/27/2025 6:04 AM EDT) Only the most recent of10 resultswithin the time period is included. WBC 7.5 3.5 - 11.3 k/uL 01/27/2025 6:04 AM EDT [facility] RBC 3.77(L) 4.21 - 5.77 m/uL 01/27/2025 6:04 AM EDT [facility] Hemoglobin 10.9(L) 13.0 - 17.0 g/dL 01/27/2025 6:04 AM EDT [facility] Hematocrit 33.2(L) 40.7 - 50.3 % 01/27/2025 6:04 AM EDT [facility] MCV 88.1 82.6 - 102.9 fL 01/27/2025 6:04 AM EDT [facility] MCH 28.9 25.2 - 33.5 pg 01/27/2025 6:04 AM EDT [facility] MCHC 32.8 28.4 - 34.8 g/dL 01/27/2025 6:04 AM EDT [facility] RDW 13.3 11.8 - 14.4 % 01/27/2025 6:04 AM EDT [facility] Platelets See Reflexed IPF Result 138 - 453 k/uL 01/27/2025 6:04 AM EDT [facility] Platelet, Fluorescence 29(L) 138 - 453 k/uL 01/27/2025 6:04 AM EDT [facility] Platelet, Immature Fraction 14.5(H) 1.1 - 10.3 % 01/27/2025 6:04 AM EDT [facility] NRBC Automated 0.0 0.0 per 100 WBC 01/27/2025 6:04 AM EDT [facility] Neutrophils % 61 36 - 65 % 01/27/2025 6:04 AM EDT [facility] Lymphocytes % 25 24 - 43 % 01/27/2025 6:04 AM EDT [facility] Monocytes % 11 3 - 12 % 01/27/2025 6:04 AM EDT [facility] Eosinophils % 1 1 - 4 % 01/27/2025 6:04 AM EDT [facility] Basophils % 0 0 - 2 % 01/27/2025 6:04 AM EDT [facility] Immature Granulocytes % 1(H) 0 % 01/27/2025 6:04 AM EDT [facility] Neutrophils Absolute 4.59 1.50 - 8.10 k/uL 01/27/2025 6:04 AM EDT [facility] Lymphocytes Absolute 1.83 1.10 - 3.70 k/uL 01/27/2025 6:04 AM EDT [facility] Monocytes Absolute 0.85 0.10 - 1.20 k/uL 01/27/2025 6:04 AM EDT [facility] Eosinophils Absolute 0.08 0.00 - 0.44 k/uL 01/27/2025 6:04 AM EDT [facility] Basophils Absolute <0.03 0.00 - 0.20 k/uL 01/27/2025 6:04 AM EDT [facility] Immature Granulocytes Absolute 0.10 0.00 - 0.30 k/uL 01/27/2025 6:04 AM EDT [facility] Blood BLOOD SPECIMEN / Unknown 01/27/2025 6:04 AM EDT 01/27/2025 6:26 AM EDT Milind Corley MD HEMATOLOGY ORDERABLES Final Res ult [facility]) [facility] [address] [phone] * (ABNORMAL) H. pylori antigen (01/26/2025 9:17 AM EDT) Specimen Description .FECES 01/26/2025 9:17 AM EDT [facility] Direct Exam POSITIVE( A) 01/26/2025 9:17 AM EDT [facility] STOOL SPECIMEN / Unknown 01/26/2025 9:17 AM EDT 01/26/2025 9:17 AM EDT us Melisa Mejia MD BODY FLUIDS AND STOOLS ORD ERABLES Final Result Performing Organization Address City/[facility]/ZIP Co de Phone Number [facility] [address] [place] [address], [facility] [phone] * (ABNORMAL) Hepatic Function Panel (01/24/2025 3:32 AM EDT) Only the most recent of2 resultswithin the time period is included. Albumin 3.1(L) 3.5 - 5.2 g/dL 01/24/2025 3:32 AM EDT [facility] Alkaline Phosphatase 61 40 - 129 U/L 01/24/2025 3:32 AM EDT [facility] ALT 28 10 - 50 U/L 01/24/2025 3:32 AM EDT [facility] AST 24 10 - 50 U/L 01/24/2025 3:32 AM EDT [facility] Total Bilirubin 0.6 0.0 - 1.2 mg/dL 01/24/2025 3:32 AM EDT [facility] Bilirubin, Direct 0.1 0.0 - 0.2 mg/dL 01/24/2025 3:32 AM EDT [facility] Bilirubin, Indirect 0.5 0.0 - 1.0 mg/dL 01/24/2025 3:32 AM EDT [facility] Total Protein 9.5(H) 6.6 - 8.7 g/dL 01/24/2025 3:32 AM EDT [facility] Globulin 6.4 g/dL 01/24/2025 3:32 AM EDT [facility] Albumin/Globulin Ratio 0.5(L) 1.0 - 2.5 01/24/2025 3:32 AM EDT [facility] 01/24/2025 3:32 AM EDT 01/24/2025 3:52 AM EDT us Milind Corley MD CHEMISTRY ORDERABLES Final Resu lt Performing Organization Address City/[facility]/ZIP Co de Phone Number [facility] [address] [place], [place] [address] [phone] * PREVIOUS SPECIMEN (01/23/2025 10:21 AM EDT) 01/23/2025 10:2 1 AM EDT 01/23/2025 10:23 AM EDT Uzair Wilson MD CHEMISTRY ORDERABLES Yamile nellie Result [address] [id number] [phone] * Serotonin Rel Assay (01/23/2025 10:21 AM EDT) Heparin Type Porcine Heparin 01/23/2025 10:21 AM EDT [facility] Heparin Platelet Antibody Negative Negative 01/23/2025 10:21 AM EDT [facility] KIM Porc Low Dose 3 % 025 10:21 AM EDT [facility] KIM Porc High Dose 0 % 2024 10:21 AM EDT [facility] SEROTONIN RELEASING ASSAY See Note 01/23/2025 10:21 AM EDT [facility] Comment: (NOTE) This patient's specimen [...] regarding diagnosis of HIT is available at [email or web address]. INTERPRETIVE INFORMATION: KIM, Unfractionated Heparin This test was developed and its performance characteristics determined by [employer] It has not been cleared or approved by the US Food and Drug Administration. This test was performed in a CLIA certified laboratory and is intended for clinical purposes. Performed By: [facility] [address] [place] [address] Dryer Feeder: Mariusz Melo MD, PhD CLIA Number: [id number] 01/23/2025 10:2 1 AM EDT 01/23/2025 10:23 AM EDT Uzair Wilson MD CHEMISTRY ORDERABLES Yamile l Result [facility] [address] [place] [address], [facility] [phone] [facility] [address] [place] [address], [facility] [phone] * Immunotyping, Serum (01/23/2025 9:02 AM EDT) ITYP Interpretation Immunotyping is negative for monoclonal immunoglobulin. 01/23/2025 9:02 AM EDT [facility] Pathologist Review ELECTRONICALLY SIGNED. PILLO ELY M.D. 01/23/2025 9:02 AM EDT [facility] 01/23/2025 9:02 AM EDT 01/23/2025 9:06 AM EDT Pérez Flynn MD PROOFER PREPRESS RY ORDERABLES Final Result Performing Organization Address City/[facility]/ZIP Co de Phone Number [facility] [address] [place] [address], [facility] [phone] * Vitamin B12 & Folate (01/23/2025 9:02 AM EDT) Vitamin B-12 624 232 - 1245 pg/mL 01/23/2025 9:02 AM EDT [facility] Folate 11.7 4.8 - 24.2 ng/mL 01/23/2025 9:02 AM EDT [facility] Blood BLOOD SPECIMEN / Unknown 01/23/2025 9:02 AM EDT 01/23/2025 9:06 AM EDT Pérez Flynn MD PROOFER PREPRESS RY ORDERABLES Final Result Performing Organization Address City/[facility]/ZIP Co de Phone Number [facility] [address] [place] [address], [facility] [phone] * (ABNORMAL) Cytomegalovirus Ab,IGG,IGM (01/23/2025 9:02 AM EDT) CMV IgG 744.0(H) <0.5 01/23/2025 9:02 AM EDT [facility] Comment: Reference Range: <0.5 Non Reactive 0.5 [...] IgM 0.2 <0.7 01/23/2025 9:02 AM EDT [facility] Comment: Reference Range: <0.7 Non Reactive 0.7 [...] 9:02 AM EDT 01/23/2025 9:06 AM EDT us Pérez Flynn MD PROOFER PREPRESS RY ORDERABLES Final Result [facility] [address] [place] [address] * (ABNORMAL) Federico Sewell Panel (01/23/2025 9:02 AM EDT) EBV VCA,IgG >750.0(H) 0.0 - 21.9 U/mL 01/23/2025 9:02 AM EDT [facility] Comment: (NOTE) INTERPRETIVE INFORMATION: Federico-Sewell Virus Antibody to Viral Capsid Antigen, IgG 17.9 U/mL or less.......Not Detected 18.0-21.9 U/mL..........Indeterminate - Repeat testing in 10-14 days may be helpful. 22.0 U/mL or greater....Detected EBV VCA,IgM 26.5 0.0 - 43.9 U/mL 01/23/2025 9:02 AM [facility] Comment: (NOTE) INTERPRETIVE INFORMATION: Federico-Sewell Virus Antibody to Viral Capsid Antigen, IgM 35.9 U/mL or less.......Not Detected 36.0-43.9 U/mL..........Indeterminate - Repeat testing in 10-14 days may be helpful. 44.0 U/mL or greater....Detected EBV Nuclear Ag Ab >600.0(H) 0.0 - 21.9 U/mL 01/23/2025 9:02 AM [facility] Comment: (NOTE) INTERPRETIVE INFORMATION: Federico-Sewell Virus Antibody to Nuclear Antigen, IgG 17.9 U/mL or less.......Not Detected 18.0-21.9 U/mL..........Indeterminate - Repeat testing in 10-14 days may be helpful. 22.0 U/mL or greater....Detected EBV Early Antigen Ab, IgG >150.0(H) 0.0 - 10.9 U/mL 01/23/2025 9:02 AM [facility] Comment: (NOTE) INTERPRETIVE INFORMATION: Federico-Sewell Virus Antibody to Early D Antigen (EA-D), IgG 8.9 U/mL or less........Not Detected 9.0-10.9 U/mL...........Indeterminate - Repeat testing in 10-14 days may be helpful. 11.0 U/mL or greater....Detected Performed By: [facility] [address] [place] [address] Dryer Feeder: Mariusz Melo MD, PhD CLIA Number: [id number] 01/23/2025 9:02 AM EDT 01/23/2025 9:06 AM EDT Pérez Flynn MD PROOFER PREPRESS RY ORDERABLES Final Result Performing Organization Address [facility] de Phone Number [address] [address], [facility] [phone] [facility] [address] [place] [address] * [id number] ACTIVITY (01/23/2025 9:02 AM EDT) Pathologist [facility] [id number] Activity >100 >=61 % 9:02 AM EDT [facility] Comment: (NOTE) INTERPRETIVE INFORMATION: [id number] Activity YRMVXX14 levels of less than 10 percent may be associated with either inherited (Tomeka-Abel Syndrome) or acquired thrombotic thrombocytopenic purpura (TTP). A variety of medical conditions may result in a mild to moderate deficiency of GQWNMX68 activity. Recent plasma exchange therapy may raise the observed IQFDGH21 activity. This test was developed and its performance characteristics determined by [employer] It has not been cleared or approved by the US Food and Drug Administration. This test was performed in a CLIA certified laboratory and is intended for clinical purposes. Performed By: [facility] [address] [place] [address] Dryer Feeder: Mariusz Melo MD, PhD CLIA Number: [id number] Blood BLOOD SPECIMEN / Unknown 01/23/2025 9:02 AM EDT 01/23/2025 9:06 AM EDT Pérez Flynn MD PROOFER PREPRESS RY ORDERABLES Final Result Performing Organization Address [facility]/ZIP Co de Phone Number [address] [address], [facility] [phone] [facility] [address] [place] [address] * (ABNORMAL) Electrophoresis Protein, Serum (01/23/2025 9:02 AM EDT) Total Protein 8.3 6.6 - 8.7 g/dL 01/23/2025 9:02 AM [facility] Albumin (calculated) 3.1(L) 3.2 - 5.2 g/dL 01/23/2025 9:02 AM [facility] Albumin % 37(L) 56 - 66 % 01/23/2025 9:02 AM EDT [facility]) Nhvwf-4-Mxzxmfnd 0.4 0.1 - 0.4 g/dL 01/23/2025 9:02 AM EDT [facility] Alpha 1 % 5 3 - 5 % 01/23/2025 9:02 AM [facility] Ihuud-7-Vdkipmln 1.0(H) 0.5 - 0.9 g/dL 01/23/2025 9:02 AM [facility] Alpha 2 % 11 7 - 12 % 01/23/2025 9:02 AM [facility] Beta Globulin 0.8 0.7 - 1.4 g/dL 01/23/2025 9:02 AM [facility] Beta Percent 10 8 - 13 % 01/23/2025 9:02 AM EDT [facility] Gamma Globulin 3.1(H) 0.5 - 1.5 g/dL 01/23/2025 9:02 AM [facility] Gamma Globulin % 37(H) 11 - 19 % 01/23/2025 9:02 AM [facility] Total Prot. Sum 8.4(H) 6.3 - 8.2 g/dL 01/23/2025 9:02 AM [facility] Total Prot. Sum,% 100 98 - 102 % 01/23/2025 9:02 AM [facility] Protein Electrophoresis, Serum Albumin is decreased. May be observed with hepatic diseases, 01/23/2025 9:02 AM [facility] Comment: proteinuria, malnutrition, acute phase response, and [...] PILLO ELY M.D. 01/23/2025 9:02 AM EDT [facility] BLOOD SPECIMEN / Unknown 01/23/2025 9:02 AM EDT 01/23/2025 9:06 AM EDT Pérez Flynn MD [facility] OGY ORDERABLES Final Result Performing Organization Address City/State/[facility] Co de Phone Number [facility] [address] [phone] * US LIVER SPLEEN (01/22/2025 9:17 PM [...] for comparison. HISTORY: ORDERING SYSTEM PROVIDED HISTORY: [facility] evalaute for malignancy TECHNOLOGIST PROVIDED HISTORY: itp [...] for comparison. HISTORY: ORDERING SYSTEM PROVIDED HISTORY: [facility] TECHNOLOGIST PROVIDED HISTORY[facility] FINDINGS: Mediastinum: Thoracic aorta is [...] atherosclerosis. 4. Hepatic steatosis. Robel Mccormack MD IMG CT ORDERABLES Final Result * (ABNORMAL) TEG Global Hemostasis with Lysis (01/22/2025 12:17 PM EDT) Reaction Time TEG 14.7(H) 4.6 - 9.1 min 01/22/2025 12:17 PM EDT [facility] LY30(Lysis) TEG 0.0 0.0 - 2.6 % 01/22/2025 12:17 PM EDT [facility] MA(Max Clot) Rapid TEG <40.0(L) 52.0 - 70 mm 01/22/2025 12:17 PM EDT [facility] Fibrinogen, Functional TEG 39.8(H) 15.0 - 32.0 mm 01/22/2025 12:17 PM EDT [facility] BLOOD SPECIMEN / Unknown 01/22/2025 12:17 PM EDT 01/22/2025 12:22 PM EDT Vitor Joseph MD HEMATOLOGY ORDERABLES Final R esult Performing Organization Address City/State/[facility] Co de Phone Number [facility] [address] [phone] * Hepatitis Panel, Acute (01/22/2025 12:17 PM EDT) Hepatitis B Surface Ag NONREACTIVE NONREACTIVE 01/22/2025 12:17 PM EDT [facility] Hepatitis C Ab NONREACTIVE NONREACTIVE 01/23/20 12:17 PM EDT [facility] Comment: The hepatitis C procedure used in [...] IgM NONREACTIVE NONREACTIVE 12/31 12:17 PM EDT [facility] Hep A IgM NONREACTIVE NONREACTIVE 01/22/2025 12:17 PM EDT [facility] Blood BLOOD SPECIMEN / Unknown 01/22/2025 12:17 PM EDT 01/22/2025 12:21 PM EDT Vitor Joseph MD IMMUNOLOGY ORDERABLES Final R esult Performing Organization Address City/[facility]/ZIP Co de Phone Number [facility] [address] [place] [address], [facility] [phone] * Culture, Blood 1 (01/22/2025 12:13 PM EDT) Only the most recent of2 resultswithin the time period is included. Specimen Description .BLOOD 01/22/2025 12:13 PM EDT [facility] Special Requests RH 9ML 01/22/2025 12:13 PM EDT [facility] Culture NO GROWTH 5 DAYS 01/22/2025 12:13 PM EDT [facility] BLOOD SPECIMEN / Unknown 01/22/2025 12:13 PM EDT 01/22/2025 12:23 PM EDT Vitor Joseph MD MICROBIOLOGY - GENERAL ORDERA BLES Final Result Performing Organization Address City/[facility]/ZIP Co de Phone Number [facility] [address] [place] [address], [facility] [phone] * XR CHEST PORTABLE (01/22/2025 10:50 AM [...] No acute pulmonary findings. Pérez Flynn MD IM DIAGNOSTIC IMAGING ORDERABLES Final Result * (ABNORMAL) Arterial Blood Gas, POC (01/22/2025 10:30 AM EDT) POC pH 7.511(H) 7.350 - 7.450 01/22/2025 10:30 AM EDT [facility] POC pCO2 27.3(L) 35.0 - 48.0 mm Hg 01/22/2025 10:30 AM EDT [facility] POC PO2 87.1 83.0 - 108.0 mm Hg 01/22/2025 10:30 AM EDT [facility] POC HCO3 21.9 21.0 - 28.0 mmol/L 01/22/2025 10:30 AM EDT [facility] Positive Base Excess, Art 0.2 0.0 - 3.0 mmol/L 01/22/2025 10:30 AM EDT [facility] POC O2 SAT 97.7 94.0 - 98.0 % 01/22/2025 10:30 AM EDT [facility] O2 Delivery Device Room Air 01/22/2025 10:30 AM EDT [facility] Jone Test POSITIVE 01/22/2025 10:30 AM EDT [facility] Sample Site Right Radial Artery 01/22/2025 10:30 AM EDT [facility] 01/22/2025 10:3 0 AM EDT 01/22/2025 10:32 AM EDT Uzair Wilson MD POINT OF CARE TEST ORDERA BLES Final Result Performing Organization Address [facility]/ZIP Co de Phone Number [facility] [address] [place] [address], [facility] [phone] * (ABNORMAL) POCT Glucose (01/22/2025 10:30 AM EDT) Pathologist [facility] POC Glucose 126(H) 74 - 100 mg/dL 01/22/2025 10:30 AM EDT [facility] 01/22/2025 10:3 0 AM EDT 01/22/2025 10:32 AM EDT Uzair Wilson MD POINT OF CARE TEST ORDERA BLES Final Result Performing Organization Address [facility] Co de Phone Number [facility] [address] [place] [address] * (ABNORMAL) ONOFRE profile (01/22/2025 9:34 AM EDT) Pathologist [facility] Anti-Orozco 1.6 <7.0 U/mL 01/22/2025 9:34 AM EDT [facility] Comment: Reference Range: <7.0 Negative 7.0-10.0 Equivocal >10.0 Positive Ribosomal P Ab 7.9(H) <7.0 U/mL 01/22/2025 9:34 AM EDT [facility] Comment: Reference Range: <7.0 Negative 7.0-10.0 Equivocal >10.0 Positive RNA Polymerase III Antibodies, IgG 1.5 <7.0 U/mL 01/22/2025 9:34 AM EDT [facility] Comment: Reference Range: <7.0 Negative 7.0-10.0 Equivocal >10.0 Positive Anti-Scleroderm a 3.0 <7.0 U/mL 01/22/2025 9:34 AM EDT [facility] Comment: Reference Range: <7.0 Negative 7.0-10.0 Equivocal >10.0 Positive Anti-RNP70 1.7 <7.0 U/mL 01/22/2025 9:34 AM EDT [facility] Comment: Reference Range: <7.0 Negative 7.0-10.0 Equivocal >10.0 Positive Anti-U1RNP 3.1 <5.0 U/mL 01/22/2025 9:34 AM T [facility] Comment: Reference Range: <5.0 Negative 5.0-10.0 Equivocal >10.0 Positive SSA 52 (RO) (DAVID) AB, IGG 0.9 <7.0 U/mL 01/22/2025 9:34 AM EDT [facility] Comment: Reference Range: <7.0 Negative 7.0-10.0 Equivocal >10.0 Positive SSA 60 (RO) (DAVID) AB, IGG 1.0 <7.0 U/mL 01/22/2025 9:34 AM EDT [facility] Comment: Reference Range: <7.0 Negative 7.0-10.0 Equivocal >10.0 Positive Anti SSB 0.7 <7.0 U/mL 01/22/2025 9:34 AM EDT [facility] Comment: Reference Range: <7.0 Negative 7.0-10.0 Equivocal >10.0 Positive Anti VAL-1 0.7 <7.0 U/mL 01/22/2025 9:34 AM T [facility] Comment: Reference Range: <7.0 Negative 7.0-10.0 Equivocal >10.0 Positive Anti-Centromere 1.0 <7.0 U/mL 9:34 AM T [facility] Comment: Reference Range: <7.0 Negative 7.0-10.0 Equivocal >10.0 Positive 01/22/2025 9:34 AM EDT 01/22/2025 9:46 AM EDT Pérez Flynn MD IMMUNOL OGY ORDERABLES Final Result [facility] [address] [place] [address], [facility] [phone] * (ABNORMAL) ONOFRE SCREEN WITH REFLEX (01/22/2025 9:34 AM EDT) Pathologist [facility] ONOFRE POSITIVE( A) NEGATIVE 01/22/2025 9:34 AM EDT [facility] ([facility]) DAVID Antibodies Screen 0.5 <0.7 U/mL 01/22/2025 9:34 AM EDT [facility] ([facility]) Comment: Reference Range: <0.7 Negative 0.7-1.0 Equivocal >1.0 Positive DAVID Screen includes U1RNP,RNP70,Sm,Ro(SS-A),La(SS-B),CENP,Scl-70,Val-1 Anti ds DNA 35.0(H) <10.0 IU/mL 01/22/2025 9:34 AM EDT [facility] ([facility]) Comment: Reference Range: <10.0 Negative 10.0-15.0 Equivocal >15.0 Positive BLOOD SPECIMEN / Unknown 01/22/2025 9:34 AM EDT 01/22/2025 9:46 AM EDT Pérez Flynn MD PROOFER PREPRESS RY ORDERABLES [place] [address], [facility] [phone] * Procalcitonin (01/22/2025 9:34 AM EDT) Pathologist [facility] Procalcitonin 0.06 0.00 - 0.09 ng/mL 01/22/2025 9:34 AM EDT [facility] ([facility]) Comment: Suspected Sepsis: <0.50 ng/mL Low likelihood [...] entered into the Change in Procalcitonin Calculator ([email or web address]) to determine the patient's Mortality Risk Prognosis In healthy neonates, plasma Procalcitonin (PCT) concentrations increase gradually after , reaching peak values at about 24 hours of age then decrease to normal values below 0.5 ng/mL by 48-72 hours of age. Blood BLOOD SPECIMEN / Unknown 01/22/2025 9:34 AM EDT 01/22/2025 9:46 AM EDT Pérez Flynn MD PROOFER PREPRESS RY ORDERABLES Final Result Performing Organization Address [facility] de Phone Number [facility] ([facility]) [address] [place] [address] * (ABNORMAL) Heparin-Induced Platelet Antibody (01/22/2025 9:34 AM EDT) Pathologist [facility] Heparin Induced Plt Ab 1.247(H) 0.000 - 0.400 O.D. 01/22/2025 9:34 AM EDT [facility] ([facility]) Comment: O.D. Interpretation: <=0.400 Negative > 0.400 Positive 01/22/2025 9:34 AM EDT 01/22/2025 9:46 AM EDT Pérez Flynn MD HEMATOL OGY ORDERABLES Final Result Performing Organization Address [facility] de Phone Number [facility] ([place]) [address] [place] [address] * (ABNORMAL) Fibrin Split Products (01/22/2025 9:34 AM EDT) FDP >5(H) <5 ug/mL 01/22/2025 9:34 AM EDT [facility] ([facility]) Comment:<20 Blood BLOOD SPECIMEN / Unknown 01/22/2025 9:34 AM EDT 01/22/2025 9:46 AM EDT Pérez Flynn MD HEMATOL OGY ORDERABLES Final Result Performing Organization Address [facility] Co de Phone Number [facility] ([place]) [address] [place] [address], [facility] [phone] * HIV Screen (01/22/2025 9:34 AM EDT) Pathologist [facility] HIV Ag/Ab NONREACTIVE NONREACTIVE 01/22/2025 9:34 AM EDT [facility] ([facility]) Comment: No laboratory evidence of HIV infection. If acute HIV infection is suspected, consider testing for HIV-1 RNA. BLOOD SPECIMEN / Unknown 01/22/2025 9:34 AM EDT 01/22/2025 9:46 AM EDT Pérez Flynn MD IMMUNOL OGY ORDERABLES Final Result Performing Organization Address [facility] Co de Phone Number [facility] ([place]) [address] [place] [address] * (ABNORMAL) Fibrinogen (01/22/2025 9:34 AM EDT) Pathologist [facility] Fibrinogen 681(H) 203 - 521 mg/dL 01/22/2025 9:34 AM EDT [facility] Blood BLOOD SPECIMEN / Unknown 01/22/2025 9:34 AM EDT 01/22/2025 9:46 AM EDT Pérez Flynn MD HEMATOL OGY ORDERABLES Final Result Performing Organization Address [facility] Co de Phone Number [facility] ([place]) [address] [place] [address], [facility] [phone] * (ABNORMAL) D-Dimer, Quantitative (01/22/2025 9:34 AM EDT) Pathologist [facility] D-Dimer, Quant 2.86(H) 0.00 - 0.57 ug/mL FEU 01/22/2025 9:34 AM EDT [facility] ([place]) Comment: When combined with a low clinical [...] OGY ORDERABLES Final Result Performing Organization Address [facility] Co de Phone Number [facility] ([place]) [address] [place] [address] * DIRECT ANTIGLOBULIN TEST (01/22/2025 9:34 AM EDT) FELIPE, Polyspecific NEGATIVE 01/22/2025 9:34 AM EDT [facility] ([place]) BLOOD SPECIMEN / Unknown 01/22/2025 9:34 AM EDT 01/22/2025 9:47 AM EDT Pérez Flynn MD BLOOD B ANK TEST ORDERABLES Final Result Performing Organization Address [facility] Co de Phone Number [facility] ([place]) [address] [phone] * MRSA DNA Probe, Nasal (01/22/2025 4:56 AM EDT) Specimen Description .NASAL SWAB 01/22/2025 4:56 AM EDT [facility] ([place]) MRSA, DNA, Nasal NEGATIVE NEGATIVE 01/23/20 4:56 AM EDT [facility] ([place]) Comment: NEGATIVE: MRSA DNA not detected by nucleic acid amplification. Results should be used as an adjunct to nosocomial control efforts to identify patients needing enhanced precautions. The test is not intended to identify patients with staphylococcal infections. Results should not be used to guide or monitor treatment for MRSA infections. Nasal 01/22/2025 4:56 AM EDT 01/22/2025 4:56 AM EDT us Milind Corley MD MICROBIOLOGY - GENERAL ORDERABL ES Final Result [facility] [address] [phone] * (ABNORMAL) Urinalysis with Reflex to Culture (01/22/2025 4:25 AM EDT) Color, UA Yellow Yellow 01/22/2025 4:25 AM EDT [facility] ([place]) Turbidity UA Clear Clear 01/22/2025 4:25 AM EDT [facility] ([place]) Glucose, Ur NEGATIVE NEGATIVE mg/dL 01/22/2025 4:25 AM EDT [facility]) Bilirubin, Urine NEGATIVE NEGATIVE 01/22/2025 4:25 AM EDT [facility] ([place]) Ketones, Urine NEGATIVE NEGATIVE mg/dL 01/22/2025 4:25 AM EDT [facility] ([place]) Specific [place], UA 1.052(H) 1.005 - 1.030 01/22/2025 4:25 AM EDT [facility] ([facility]) Urine Hgb MODERATE(A) NEGATIVE 01/22/2025 4:25 AM EDT [facility] pH, Urine 5.5 5.0 - 8.0 01/22/2025 4:25 AM EDT [facility] ([place]) Protein, UA NEGATIVE NEGATIVE mg/dL 01/22/2025 4:25 AM EDT [facility] Urobilinogen, Urine Normal 0.0 - 1.0 EU/dL 01/22/2025 4:25 AM EDT [facility] ([place]) Nitrite, Urine NEGATIVE NEGATIVE 01/22/2025 4:25 AM EDT [facility] ([place]) Leukocyte Esterase, Urine NEGATIVE NEGATIVE 01/22/2025 4:25 AM EDT [facility] ([place]) URINE SPECIMEN / Unknown 01/22/2025 4:25 AM EDT 01/22/2025 4:25 AM EDT Vitor Joseph MD URINE ORDERABLES Final Result Performing Organization Address City/[facility]/ZIP Co de Phone Number [facility] ([place]) [address] [place] [address], [facility] [phone] * Microscopic Urinalysis (01/22/2025 4:25 AM EDT) WBC, UA None 0 - 5 /HPF 01/22/2025 4:25 AM EDT [facility] ([place]) RBC, UA 10 TO 20 0 - 4 /HPF 01/22/2025 4:25 AM EDT [facility] ([place]) Comment:Reference range defi sapna for non-centrifuged specimen. Casts UA None Reference range defined for non-centrifug ed specimen. 0 - 8 /LPF 01/22/2025 4:25 AM EDT [facility] ([place]) Epithelial Cells, UA None 0 - 5 /HPF 01/22/2025 4:25 AM EDT [facility]) Bacteria, UA None None 01/22/2025 4:25 AM EDT [facility]) 01/22/2025 4:25 AM EDT 01/22/2025 4:25 AM EDT Vitor Joseph MD URINE ORDERABLES Final Result Performing Organization Address City/[facility]/ZIP Co de Phone Number [facility] ([place]) [address] [place] [address], [facility] [phone] * (ABNORMAL) Myoglobin, Blood (01/22/2025 4:18 AM EDT) Myoglobin 27(L) 28 - 72 ng/mL 01/22/2025 4:18 AM EDT [facility]) 01/22/2025 4:18 AM EDT 01/22/2025 4:18 AM EDT Uzair Wilson MD CHEMISTRY ORDERABLES Yamile l Result Performing Organization Address [facility] Co de Phone Number [address] [phone] * TSH reflex to FT4 (01/22/2025 4:18 AM EDT) TSH 1.24 0.27 - 4.20 uIU/mL 01/22/2025 4:18 AM EDT [facility]) 01/22/2025 4:18 AM EDT 01/22/2025 4:18 AM EDT Uzair Wilson MD CHEMISTRY ORDERABLES Yamile l Result Performing Organization Address [facility] de Phone Number [address] [phone] * SURGICAL PATHOLOGY REPORT (01/22/2025 4:18 AM EDT) Surgical Pathology Report [id number] [facility] ANATOMIC PATHOLOGY [address] [place], [place] [phone] SURGICAL PATHOLOGY CONSULTATION Patient Name: IRMA RAMÍREZ V. MR#: [id number] Specimen #[id number] Procedures/Adden da PERIPHERAL BLOOD REPORT Date Ordered: 01/23/2025 Status: Signed Out Date Complete: 01/25/2025 By: Tamanna Gonzales M.D. Date Reported: 01/25/2025 INTERPRETATION Peripheral blood: - Normocytic red blood cells with unremarkable morphology. - White blood cells with normal morphology. No blasts. - Marked thrombocytopenia . RESULTS-COMMENTS PERIPHERAL BLOOD STUDY CBC: Please see the electronic health record for CBC parameters ([id number], 01/22/2025, 04:18). PLATELETS: Marked thrombocytopenia . LEUKOCYTES: White blood cells show normal morphology. No atypical lymphocytes. No dysplasia. There are no blasts. ERYTHROCYTES: Red blood cells show normal morphology. No schistocytes. Note: The electronic health record is reviewed. Tamanna Gonzales M.D. Source: A: Peripheral Blood [facility] [employer] 01/22/2025 4:18 AM EDT 01/23/2025 1:22 PM EDT Uzair Wilson MD PATHOLOGY/CYTOLOGY ORDERA BLES Final Result Performing Organization Address [facility] Co de Phone Number [facility] ([place]) [address] [place] [address], [facility] [phone] [facility] * (ABNORMAL) Sedimentation Rate (01/22/2025 4:18 AM EDT) Sed Rate, Automated 119(H) 0 - 20 mm/Hr 01/22/2025 4:18 AM EDT [facility] ([place]) 01/22/2025 4:18 AM EDT 01/22/2025 4:18 AM EDT Uzair Wilson MD HEMATOLOGY ORDERABLES Fin al Result Performing Organization Address [facility] Co de Phone Number [facility] ([place]) [address] [place] [address], [facility] [phone] * Path Review, Smear (01/22/2025 4:18 AM EDT) Pathologist Review ELECTRONICALLY SIGNED. TAMANNA GONZALES M.D. 01/22/2025 4:18 AM EDT [facility] ([place]) 01/22/2025 4:18 AM EDT 01/22/2025 4:18 AM EDT Uzair Wilson MD HEMATOLOGY ORDERABLES Fin al Result Performing Organization Address [facility] Co de Phone Number [facility] ([place]) [address] [place] [address], [facility] [phone] * Reticulocytes (01/22/2025 4:18 AM EDT) Retic Ct Pct 0.8 0.5 - 1.9 % 01/22/2025 4:18 AM EDT [facility] ([place]) Absolute Retic # 0.039 0.030 - 0.080 M/uL 01/22/2025 4:18 AM EDT [facility] ([place]) Immature Retic Fract 17.0 2.7 - 18.3 % 01/22/2025 4:18 AM EDT [facility] Retic Hemoglobin 29.9 28.2 - 35.7 pg 01/22/2025 4:18 AM EDT [facility] 01/22/2025 4:18 AM EDT 01/22/2025 4:18 AM EDT Uzair Wilson MD HEMATOLOGY ORDERABLES Fin al Result Performing Organization Address City/[facility]/ZIP Co de Phone Number [address] [phone] * (ABNORMAL) C-Reactive Protein (01/22/2025 4:18 AM EDT) Pathologist [facility] CRP 38.0(H) 0.0 - 5.0 mg/L 01/22/2025 4:18 AM EDT [facility] 01/22/2025 4:18 AM EDT 01/22/2025 4:18 AM EDT Uzair Wilson MD CHEMISTRY ORDERABLES Yamile l Result [address] [phone] * Lactate Dehydrogenase (01/22/2025 4:18 AM EDT) LD 193 135 - 225 U/L 01/22/2025 4:18 AM EDT [facility] ([place]) 01/22/2025 4:18 AM EDT 01/22/2025 4:18 AM EDT Uzair Wilson MD CHEMISTRY ORDERABLES Yamile l Result Performing Organization Address [facility]/ZIP [place] [address], [facility] [phone] * Lactic Acid (01/22/2025 4:18 AM EDT) Lactic Acid, Whole Blood 1.3 0.7 - 2.1 mmol/L 01/22/2025 4:18 AM EDT [facility] ([place]) 01/22/2025 4:18 AM EDT 01/22/2025 4:18 AM EDT Uzair Wilson MD CHEMISTRY ORDERABLES Yamile l Result Performing Organization Address [facility] [place] [address], [facility] [phone] * (ABNORMAL) Haptoglobin (01/22/2025 4:18 AM EDT) Haptoglobin 381(H) 30 - 200 mg/dL 01/22/2025 4:18 AM EDT [facility]) 01/22/2025 4:18 AM EDT 01/22/2025 4:18 AM EDT Uzair Wilson MD CHEMISTRY ORDERABLES Yamile l Result Performing Organization Address [facility] Co de Phone Number [facility] ([place]) [address] [place] [address], [facility] [phone] * CK (01/22/2025 4:18 AM EDT) Total CK 62 39 - 308 U/L 01/22/2025 4:18 AM EDT [facility] ([place]) 01/22/2025 4:18 AM EDT 01/22/2025 4:18 AM EDT Uzair Wilson MD CHEMISTRY ORDERABLES Yamile l Result Performing Organization Address City/[facility]/ZIP Co de Phone Number [facility] ([place]) [address] [place] [address], [facility] [phone] * (ABNORMAL) APTT (01/22/2025 4:07 AM EDT) APTT 66.5(H) 23.0 - 36.5 sec 01/22/2025 4:07 AM EDT [facility] ([place]) Comment: IV Heparin Therapy Range: 66.0-92.0 sec Blood BLOOD SPECIMEN / Unknown 01/22/2025 4:07 AM EDT 01/22/2025 4:10 AM EDT Milind Corley MD HEMATOLOGY ORDERABLES Final Res ult Performing Organization Address [facility] Co de Phone Number [facility] ([place]) [address] [place] [address], [facility] [phone] * Protime-INR (01/22/2025 4:07 AM EDT) Protime 14.2 11.7 - 14.9 sec 01/22/2025 4:07 AM EDT [facility] ([place]) INR 1.1 01/22/2025 4:07 AM EDT [facility] ([place]) Comment: Therapeutic Range: Moderate Anticoagulant Intensity: INR = 2.0-3.0 High Anticoagulant Intensity: INR = 2.5-3.5 01/22/2025 4:07 AM EDT 01/22/2025 4:10 AM EDT Milind Corley MD HEMATOLOGY ORDERABLES Final Res ult Performing Organization Address [facility] Co de Phone Number [facility] ([place]) [address] [place] [address], [facility] [phone] from Last 3 Months Insurance [id number] Advance Directives Documents on File Type Date Recorded Patient Supervisor Lamp [employer]ades Expl anation ACP-Advance Directive 01/28/2025 7:41 PM * Full Code (Latest Code Status on File) Date Activated Date Inactivated Comments 01/22/2025 3:47 AM 01/27/2025 2:42 PM Care Teams Dining Manager Relationship Specialty Start Date End Date Davion Stephenson DO [address] [place] [address] PCP - General Family Medicine 01/22/25
--- OUTSIDE RECORDS SUMMARY | 2025-02-07 10:07 | XMS_ITS | Clinical Summary ---
Author Organization [employer] Address [id number] [address] [place] [address] Care Team Providers Care Licensed Esthetician Name Role Phone Davion Stephenson Primary Care Provider [phone] Allergies No known active allergies Medications rosuvastatin (CRESTOR) 10 mg tabletIndications :Hyperlipidemia, unspecified Take 1 tablet (10 mg total) by mouth in the morning. 90 tablet 3 4 Active bismuth subsalicylate (PEPTO BISMOL) 262 mg/15 mL suspension Take 30 mL by mouth every 6 (six) hours as needed for indigestion . Active metroNIDAZOLE (FLAGYL) 500 mg tablet Take 1 tablet (500 mg total) by mouth in the morning and 1 tablet (500 mg total) at noon and 1 tablet (500 mg total) in the evening and 1 tablet (500 mg total) before bedtime. Active pantoprazole (PROTONIX) 40 mg EC tablet Take 1 tablet (40 mg total) by mouth in the morning and at bedtime. Active polyethylene glycol (GLYCOLAX) 17 gram packet Take 17 g by mouth in the morning. Active predniSONE (DELTASONE) 10 mg tablet Take 1 tablet (10 mg total) by mouth in the morning. Active aspirin 81 mg capsule Take 81 mg by mouth in the morning. 4 02/04/20 25 Discontinu ed(Discont inued by another clinician) Active Problems Problem Noted Date Diagnosed Date H. pylori infection 01/30/2025 Elevated PSA 08/09/2022 Enlarged prostate with urinary [...] Encounters Date Type Department Care Team Description 02/03/2025 11:30 AM EDT [facility] [address] [facility] [place] [address] Davion Stephenson DO Idiopathic thrombocytopenic purpura (CMS-HCC) (Primary Dx); H. pylori infection; Abdominal aortic aneurysm (AAA) without rupture, unspecified part 02/03/2025 Travel 01/31/2025 [facility] [address] [facility] [place] [address] Ref Prov, Not In System 01/28/2025 Orders Only [facility] - [facility] [address] [place] [address] Ref Prov, Not In System 01/13/2025 2:00 PM EDT Office Visit [facility] Internal [facility] [address] [place] [address] Davion Stephenson DO Abdominal aortic aneurysm (AAA) without rupture, unspecified part (Primary Dx); Ex-cigarette smoker; Elevated blood pressure reading 01/13/2025 Travel 01/13/2025 [facility] [address] [place] [address] Ref Prov, Not In System 01/05/2025 Telephone [facility] - Family Medicine [address] [place] [address] Vanessa Umaña CMA 01/05/2025 Orders Only [facility] - Family Medicine [address] [place] [address] Ref Prov, Not In System 12/23/2024 10:00 AM EDT Office Visit [facility] [address] [place] [phone] April Thompson MD Abdominal aortic aneurysm (AAA) without rupture, unspecified part (Primary Dx) 12/23/2024 Travel 12/02/2024 10:40 AM EDT Office Visit [facility] [address] [place] [phone] April Thompson MD Abdominal aortic aneurysm (AAA) without rupture, unspecified part (Primary Dx) 12/02/2024 Travel 11/25/2024 11:39 AM EDT - 11/25/2024 11:59 PM EDT Hospital Encounter [facility] Imaging [address] [facility] [place] [address] April Thompson MD Aortic aneurysm without rupture, unspecified portion of aorta (CMS-HCC); Abdominal aortic aneurysm (AAA) without rupture, unspecified part (CMS-HCC) Discharge Disposition: Home 11/25/2024 10:30 AM EDT Office Visit [facility] [address] [place] [phone] April Thompson MD Abdominal aortic aneurysm (AAA) without rupture, unspecified part (CMS-HCC) (Primary Dx); Aortic aneurysm without rupture, unspecified portion of aorta (CMS-HCC) 11/25/2024 Travel 11/22/2024 Orders Only [facility] - Family Medicine [address] [place] [address] Alejandrina Felipe CMA Abdominal aortic aneurysm (AAA) without rupture, unspecified part ([facility]) 11/19/2024 Orders Only [facility] - Family Medicine [address] [place] [address] Fátima Carver, SLEEPING CAR SERVICE ATTENDANT-FAMILY DENTIST Aortic aneurysm without rupture, unspecified portion of aorta ([facility]) (Primary Dx) 11/19/2024 Telephone [facility] [address] [place] [phone] Delphine Louis, RMA ultra sound result 11/15/2024 8:30 AM EDT Office Visit [facility] - Family Medicine [address] [place] [address] Davion Stephenson DO Abdominal aortic aneurysm (AAA) without rupture, unspecified part ([facility]) (Primary Dx); Cigarette smoker; Mixed hyperlipidemia 11/15/2024 [...] drink = 0.6 oz pur e alcohol) [facility] Utilities Answer Date Recorded In the past 12 months has [employer], oil, or water [employer] threatened to shut off services in your home? No 07/08/2024 Social Connection and Isolation Panel [NHANES] A nswer Date Recorded In a typical week, how many times do you talk on the phone with family, friends, or neighbors? Once a week 07/08/2024 How often do you get together with friends or re latives? Twice a week 07/08/2024 How often do you attend zoroastrian or mu-ism serv ices? Never 07/08/2024 Do you belong to any clubs o r organizations such as zoroastrian groups, unions, fraternal or athletic groups, or [...] 02/03/2025 [facility] - Occupational Stress Questionnaire Answer Date Recorded [...] Recorded Do you need help finding a [facility] and/or a training program? [...] Mass Index 22.49 02/03/2025 11:15 AM EDT Plan of Treatment Upcoming Encounters Date Type Department Care Team (Late st Contact Info) Description 07/06/2025 10:15 AM EST Office Visit [facility] - Family Medicine [address] [place] [address] Davion Stephenson, DO [address] [place] [address] 07/11/2025 10:30 AM EST Office Visit [facility] - Family Medicine [address] [place] [address] Davion Stephenson, DO [address] [place] [address] Health Maintenance Due Date Last Done Comments Zoster (Shingles) Vaccine (1 of 2) 2010 Influenza Vaccine 05/02/2025 DTaP,Tdap and Td Vaccines (1 - Tdap) 09/01/2025 Postponed from 09/02 (Patient Refused) Adult BMI Screening 02/03/2026 02/03/2025 Depression Screening 02/03/2026 02/03/2025 Tobacco Screening 02/03/2026 02/03/2025 Medical Devices Not on file Procedures Procedure Name Priority Date/Time Associated Diagnosis Comments CBC W AUTO DIFF BLD Routine 01/31/2025 1 :[address] ABDOMEN AND PELVIS W CONT Routine 01/21/2025 9:19 AM EDT MULTIPLE LABS Routine 12/27/2024 10:57 AM EDT NUC STRESS LEXISCAN Routine 12/10/2024 1 0:51 AM EDT NM BONE SCAN WHOLE BODY Routine 12/11/19 7:[address] CTA ABD AORTA W RUNOFF STAT 11/25/2024 12:28 PM EDT Aortic aneurysm without rupture, unspecified portion of aorta (CMS-HCC) Abdominal aortic aneurysm (AAA) without rupture, unspecified part (CMS-HCC) US RETROPERITONEAL LIMITED Routine 11/22/2024 10:00 AM EDT Abdominal aortic aneurysm (AAA) without rupture, unspecified part (CMS-HCC) from Last 3 Months Results * CBC W Auto Diff Bld (01/31/2025 1:38 PM EDT) us Not In System Ref Prov LAB BLOOD ORDERABLES Yamile l Result MANUALLY TRANSCRIBED RESULTS * CT abdomen and pelvis with contrast (01/21/2025 9:19 AM EDT) Anatomical Region Laterality Modality Body, Abdomen, Body Covera N/A Compu ana Tomography us Not In System Ref Prov IMG CT ORDERABLES Final R esult * Multiple labs (12/27/2024 10:57 AM EDT) us Not In System Ref Prov SD IMAGING Final Res ult MANUALLY TRANSCRIBED RESULTS [...] chronic findings as above. Finalized by Hira Mcudffie MD on 11/25/2024 1:10 PM Procedure Note [...] Resu lt from Last 3 Months Insurance [id number]-[id number] PLAN Care Teams Licensed Esthetician Relationship Specialty Start Date End Date Davion Stephenson DO [address] [facility], [address] [place], [place] [address] PCP - General Family Medicine 07/10/22
--- OUTSIDE RECORDS SUMMARY | 2025-02-07 10:07 | XMS_ITS | Encounter Summary ---
Author Organization [employer] tem Address [id number] [address] [place] [address] Care Team Providers Care Icu Tech Name Role Phone Davion Stephenson Primary Care Provider + [phone] Encounter Details Date Type Department Care Team (Latest Contact Info) Description 02/03/2025 Travel Social History Tobacco Use Types Packs/Day Years Used Date Smoking Tobacco: Former Cigarettes 1.7 45.3 0 1979 - 12/22/2024 Smokeless Tobacco: Former Comments:Reports quit 2 ken hs ago Alcohol Use Standard Drinks/Week Comments Not Currently 0 (1 standard drink = 0.6 oz pur e alcohol) [facility] Utilities Answer Date Recorded In the past 12 months has [employer] electric, gas, oil, or water company threatened [...] week 07/08/2024 How often do you attend taoism or alevism serv ices? Never 07/08/2024 Do you belong to any clubs o r organizations such as taoism groups, unions, fraternal or athletic groups, or [...] Answer Date Recorded Total Score 0 02/03/2025 [facility] of Occupat ional Health - [...] Recorded Do you need help finding a [place] [employer] career center and/or a training program? No [...] - Family Medicine [address] [place] [address] Davion Stephenson DO [address], [place] [address] 07/11/2025 10:30 AM EST Office Visit [facility] - Family Medicine [address] [place] [address] Davion Stephenson DO [address], [place] [address] documented as of this encounter Visit Diagnoses Not on filedocumented in this encounter Additional Health Concerns Assessment Noted Time PHQ-9 Depression Total Score: 0 02/04/20 25 11:13 AM EDT documented as of this encounter Care Teams Icu Tech Relationship Specialty Start Date End Date Davion Stephenson DO [address], [place] [address] PCP - General Family Medicine 07/10/22 documented as of this encounter
[2025-02-07 10:30] LABS: Hematocrit 37.1 % (42.0-54.0); Hemoglobin 12.5 g/dL (14.0-18.0); Immature Granulocytes Abs Auto 0.03 10^3/uL (0.00-0.03); Immature Granulocytes Pct Auto 0.4 % (0.0-0.5); Lymphocytes Absolute Auto 0.7 10^3/uL (1.2-3.8); Mean Corpuscular HGB Conc 33.7 g/dL (29.9-35.2); Mean Corpuscular Hemoglobin 29.3 pg (25.9-34.0); Mean Corpuscular Volume 87.1 fL (80.0-94.0); Platelet Count 139 10^3/uL (150-450); Red Blood Count 4.26 10^6/uL (4.70-6.10); White Blood Count 7.8 10^3/uL (4.0-11.0)
[2025-02-21 09:24] LABS: Hematocrit 38.5 % (42.0-54.0); Hemoglobin 12.7 g/dL (14.0-18.0); Immature Granulocytes Abs Auto 0.03 10^3/uL (0.00-0.03); Immature Granulocytes Pct Auto 0.5 % (0.0-0.5); Lymphocytes Absolute Auto 1.2 10^3/uL (1.2-3.8); Mean Corpuscular HGB Conc 33.0 g/dL (29.9-35.2); Mean Corpuscular Hemoglobin 29.2 pg (25.9-34.0); Mean Corpuscular Volume 88.5 fL (80.0-94.0); Platelet Count 165 10^3/uL (150-450); Red Blood Count 4.35 10^6/uL (4.70-6.10); White Blood Count 5.5 10^3/uL (4.0-11.0)
[2025-02-28 09:25] LABS: Hematocrit 39.9 % (42.0-54.0); Hemoglobin 12.7 g/dL (14.0-18.0); Immature Granulocytes Abs Auto 0.04 10^3/uL (0.00-0.03); Immature Granulocytes Pct Auto 0.6 % (0.0-0.5); Lymphocytes Absolute Auto 1.4 10^3/uL (1.2-3.8); Mean Corpuscular HGB Conc 31.8 g/dL (29.9-35.2); Mean Corpuscular Hemoglobin 28.1 pg (25.9-34.0); Mean Corpuscular Volume 88.3 fL (80.0-94.0); Platelet Count 172 10^3/uL (150-450); Red Blood Count 4.52 10^6/uL (4.70-6.10); White Blood Count 6.3 10^3/uL (4.0-11.0)
== END 2025-03-01 09:46 | disposition home or self-care (01) ==
LOC: LAB 10:00
PROVIDERS: PCP Family Medicine
DX: Z51.81 Encounter for therapeutic drug level monitoring (principal); D69.6 Thrombocytopenia, unspecified
CPT/HCPCS: 36415; 85025

== ENCOUNTER 2025-02-14 09:14 | Outpatient (OUT) | payer OTHER, SELFPAY ==
--- OUTSIDE RECORDS SUMMARY | 2025-02-02 17:00 | XMS_ITS | Encounter Summary ---
Author Organization [facility] Address [address] [facility] [place] [address] Care Team Providers Care Cuff Slitter Name Role Phone Davion Stephenson Primary Care Provider + [phone] Reason for Visit * Reason Comments Follow-up Hospital stay low pl atelets Encounter Details Date Type Department Care Team (Latest Contact Info) Description 02/02/2025 5:00 PM EDT Office Visit [facility] Part of [address] [address] Darryl Hendrix MD [address] [place] [address] Thrombocytopenia (Primary Dx) Social History Tobacco Use Types Packs/Day Years Used Date Smoking Tobacco: Former Cigarettes 0.5 34.2 S tarted: 09/01/1990 Smokeless Tobacco: Never Alcohol Use Standard Drinks/Week Comments Never 0 (1 standard drink = 0.6 oz pur e alcohol) [facility] Utilities Answer Date Recorded In the past 12 months has th e [employer], gas, oil, or water [employer] threatened to shut off services in your [...] any time in the past 12 m [facility], were you homeless or living in a senior care (including now)? No 01/22/2025 Food Insecurity Answer [...] Sign Reading Time Taken Comments Blood Pressure 121/85 02/02/2025 5:05 PM EDT Pulse 106 02/02/2025 5:05 PM EDT Temperature 36.8 C (98.2 F) 02/02/2025 5:05 PM EDT Respiratory Rate 18 02/02/2025 5:05 PM EDT Oxygen Saturation - - Inhaled Oxygen Concentration - - Weight 73 kg (161 lb) 02/02/2025 5:05 PM EDT Height 180.3 cm (5' 11 ) 02/02/2025 5:05 PM EDT Body Mass Index 22.45 02/02/2025 5:05 PM EDT documented in this encounter Patient Instructions * Patient Instructions* Darryl Hendrix MD - 02/02/2025 5:43 PM EDT Taper down prednisone. CBC weekly RV 4-6 weeks documented in this encounter Plan of Treatment Upcoming Encounters Date Type Department Care Team (Late st Contact Info) Description 03/09/2025 2:45 PM EDT Office Visit [facility] Part of [address] [address] Darryl Hendrix MD [address] [place] [address] F/U hospital stay low platelets documented as of this encounter Visit Diagnoses Diagnosis Thrombocytopenia- Primary Thrombocytopenia, unspecified documented in this encounter Care Teams Cuff Slitter Relationship Specialty Start Date End Date Davion Stephenson DO [address] [place] [address] PCP - General Family Medicine 01/22/25 documented as of this encounter
--- OUTSIDE RECORDS SUMMARY | 2025-02-03 11:30 | XMS_ITS | Encounter Summary ---
Author Organization [employer] [facility] tem Address [id number] [address] [place] [address] Care Team Providers Care Tankage Supervisor Name Role Phone Davion Stephenson DO Primary Care Provider + [phone] Reason for Visit * Reason Comments TCM Encounter Details Date Type Department Care Team (Late st Contact Info) Description 02/03/2025 11:30 AM EDT Office Visit [facility] - Family Medicine [address] [place] [address] Davion Stephenson DO [address] [facility] [facility] [address], [place] [address] Idiopathic thrombocytopenic purpura (CMS-HCC) (Primary Dx); H. pylori infection; Abdominal aortic aneurysm (AAA) without rupture, unspecified part Social History Tobacco Use Types Packs/Day Years Used Date Smoking Tobacco: Former Cigarettes 1.7 45.3 0 1979 - 12/22/2024 Smokeless Tobacco: Former Comments:Reports quit 2 ken hs ago Alcohol Use Standard Drinks/Week Comments Not Currently 0 (1 standard drink = 0.6 oz pur e alcohol) [facility] Utilities Answer Date Recorded In the past 12 months has [employer] electric, gas, oil, or water company threatened [...] week 07/08/2024 How often do you attend baptism or spiritism serv ices? Never 07/08/2024 Do you belong to any clubs o r organizations such as baptism groups, unions, fraternal or athletic groups, or [...] Answer Date Recorded Total Score 0 02/03/2025 [facility] of Occupat ional Health - [...] Recorded Do you need help finding a [facility] career center and/or a training program? [...] blood tests and then transferred him to [facility]. He saw the blood specialists there. [...] should not cut himself. He saw the microcomputer technician yesterday and his platelet count was improving. He is on prednisone and does note that he sometimes gets dizzy when he gets up too fast. He admits that he does not drink any water. He is also having issues with constipation. He goes every other day but his stools are a 5 on the Swain stool scale. He admits to eating very [...] Medicine - Family Medicine [address] [place] [address] Davion Stephenson DO [address], [place] [address] 07/11/2025 10:30 AM EST [facility] [address] [place] [address] Davion Stephenson DO [address] [place] [id number] documented as of this encounter Visit Diagnoses Diagnosis Idiopathic thrombocytopenic purpura (CMS-HCC)- Primary Immune thrombocytopenic purpura H. pylori infection Helicobacter pylori (H. pylori) Abdominal aortic aneurysm (AAA) without rupture, unspecified part documented in this encounter Additional Health Concerns Assessment Noted Time PHQ-9 Depression Total Score: 0 02/04/20 25 11:13 AM EDT documented as of this encounter Care Teams Tankage Supervisor Relationship Specialty Start Date End Date Davion Stephenson DO [address] [facility], [place] [address] PCP - General Family Medicine 07/10/22 documented as of this encounter
--- OUTSIDE RECORDS SUMMARY | 2025-02-14 09:17 | XMS_ITS | Encounter Summary ---
Author Organization [employer] tem Address [facility] [place]-[id number] [address] [place] [address] Care Team Providers Care Snow Removal Supervisor Name Role Phone Davion Stephenson Primary Care Provider + [phone] Encounter Details Date Type Department Care Team (Late st Contact Info) Description 01/13/2025 Orders Only [facility] - Family Medicine [address] [place] [address] Ref Prov, [place] [address] Social History Tobacco Use Types Packs/Day Years Used Date Smoking Tobacco: Former Cigarettes 1.7 45.3 0 1979 - 12/22/2024 Smokeless Tobacco: Former Comments:Reports quit 2 ken hs ago Alcohol Use Standard Drinks/Week Comments Not Currently 0 (1 standard drink = 0.6 oz pur e alcohol) [facility] Utilities Answer Date Recorded In the past 12 months has [employer] electric, gas, oil, or water company threatened [...] week 07/08/2024 How often do you attend samaritan or cheondoism serv ices? Never 07/08/2024 Do you belong to any clubs o r organizations such as samaritan groups, unions, fraternal or athletic groups, or [...] Answer Date Recorded Total Score 0 01/13/2025 [facility] of Occupat ional Health - Occupational Stress [...] Recorded Do you need help finding a [facility] career center and/or a training program? [...] Medicine [address] [place] [address] Davion Stephenson, [address], [place] [address] 07/11/2025 10:30 AM EST Office Visit [facility] - Family Medicine [address] [place] [address] Davion Stephenson DO [address] [facility], [place] [address] documented as of this encounter Procedures Procedure Name Priority Date/Time Associated Diagnosis Comments MULTIPLE LABS Routine 12/27/2024 10:57 AM EDT NUC STRESS LEXISCAN Routine 12/10/2024 10:51 AM EDT documented in this encounter Results * Multiple labs (12/27/2024 10:57 AM EDT) us Not In System Ref Prov AL IMAGING Final Res ult MANUALLY TRANSCRIBED RESULTS [...] documented as of this encounter Care Teams Snow Removal Supervisor Relationship Specialty Start Date End Date Davion Stephenson DO [address] [facility], [place] [address] PCP - General Family Medicine 07/10/22 documented as of this encounter
--- OUTSIDE RECORDS SUMMARY | 2025-02-14 09:17 | XMS_ITS | Encounter Summary ---
Author Organization [employer] tem Address [facility] [place][id number] [address] [place] [address] Care Team Providers Care General Practitioner Name Role Phone Davion Stephenson Primary Care Provider + [phone] Encounter Details Date Type Department Care Team (Late st Contact Info) Description 01/28/2025 Orders Only [facility] - Family Medicine [address] [place] [address] Ref Prov, [place] [address] Social History Tobacco Use Types Packs/Day Years Used Date Smoking Tobacco: Former Cigarettes 1.7 45.3 0 1979 - 12/22/2024 Smokeless Tobacco: Former Comments:Reports quit 2 ken hs ago Alcohol Use Standard Drinks/Week Comments Not Currently 0 (1 standard drink = 0.6 oz pur e alcohol) [facility] Utilities Answer Date Recorded In the past 12 months has [employer] electric, gas, oil, or water company threatened [...] week 07/08/2024 How often do you attend orthodox or jewish serv ices? Never 07/08/2024 Do you belong to any clubs o r organizations such as orthodox groups, unions, fraternal or athletic groups, or [...] Answer Date Recorded Total Score 0 01/13/2025 [facility] of Occupat ional Health [...] Recorded Do you need help finding a [facility] career center and/or a training program? [...] - Family Medicine [address] [place] [address] Davion Stephenson DO [address], [place] [address] 07/11/2025 10:30 AM EST Office Visit [facility] - Family Medicine [address] [place] [address] Davion Stephenson DO [address], [place] [address] documented as of this encounter Procedures Procedure [...] documented as of this encounter Care Teams General Practitioner Relationship Specialty Start Date End Date Davion Stephenson DO [address], [place] [address] PCP - General Family Medicine 07/10/22 documented as of this encounter
--- OUTSIDE RECORDS SUMMARY | 2025-02-14 09:17 | XMS_ITS | Encounter Summary ---
Author Organization [employer] tem Address [id number] [address] [place] [address] Care Team Providers Care Tax Advisor Name Role Phone Davion Stephenson Primary Care Provider + [phone] Encounter Details Date Type Department Care Team (Late st Contact Info) Description 01/31/2025 Orders Only [facility] - Family Medicine [address] [place] [address] Ref Prov, [place] [address] Social History Tobacco Use Types Packs/Day Years Used Date Smoking Tobacco: Former Cigarettes 1.7 45.3 0 1979 - 12/22/2024 Smokeless Tobacco: Former Comments:Reports quit 2 ken hs ago Alcohol Use Standard Drinks/Week Comments Not Currently 0 (1 standard drink = 0.6 oz pur e alcohol) [facility] Utilities Answer Date Recorded In the past 12 months has [employer] electric, gas, oil, or water company threatened [...] week 07/08/2024 How often do you attend mormonism or congregational serv ices? Never 07/08/2024 Do you belong to any clubs o r organizations such as mormonism groups, unions, fraternal or athletic groups, or [...] Answer Date Recorded Total Score 0 02/03/2025 [facility] of Occupat ional Health - [...] Recorded Do you need help finding a [facility] career center and/or a training program? No [...] - Family Medicine [address] [place] [address] Davion Stephenson DO [address], [place] [address] 07/11/2025 10:30 AM EST Office Visit [facility] - Family Medicine [address] [place] [address] Davion Stephenson DO [address], [place] [address] documented as of this encounter Procedures Procedure [...] documented as of this encounter Care Teams Tax Advisor Relationship Specialty Start Date End Date Davion Stephenson DO [address] [place] [address] PCP - General Family Medicine 07/10/22 documented as of this encounter
--- OUTSIDE RECORDS SUMMARY | 2025-02-14 09:17 | XMS_ITS | Encounter Summary ---
Author Organization [employer] tem Address [facility] [place]-[id number] [address] [place] [address] Care Team Providers Care Head Of Precision Targeting Name Role Phone Davion Stephenson DO Primary Care Provider + [phone] Encounter Details Date Type Department Care Team (Late Contact Info) Description 11/29/2022 Orders Only [facility] - Family Medicine [address] [place] [address] Vesta Schwartz, B AND B GANG WORKER-NURSE [employer] [address] [place] [address] [place], [place] [id number] Social History Tobacco Use Types Packs/Day Years [...] Medicine - Family Medicine [address] [place] [address] Davion Stephenson DO [address] [place] [address] 07/11/2025 10:30 AM EST Office Visit [facility] - Family Medicine [address] [place] [address] Davion Stephenson DO [address], [place] [address] documented as of this encounter Visit Diagnoses Not on filedocumented in this encounter Care Teams Head Of Precision Targeting Relationship Specialty Start Date End Date Davion Stephenson DO [address], [facility] [place], [place] [address] PCP - General Family Medicine 07/10/22 documented as of this encounter
--- OUTSIDE RECORDS SUMMARY | 2025-02-14 09:17 | XMS_ITS | Encounter Summary ---
Author Organization [facility] Address [address] [place] [address] Care Team Providers Care Floral Design Teacher Name Role Phone Davion Stephenson DO Primary Care Provider + [phone] Encounter Details Date Type Department Care Team (Late st Contact Info) Description 02/02/2025 Orders Only [facility] Part of [address] [address] Darryl Hendrix MD [address] [place], [place] [id number] Thrombocytopenia (Primary Dx) Social History Tobacco Use Types Packs/Day Years Used Date Smoking Tobacco: Former Cigarettes 0.5 34.2 S tarted: 09/01/1990 Smokeless Tobacco: Never Alcohol Use Standard Drinks/Week Comments Never 0 (1 standard drink = 0.6 oz pur e alcohol) [facility] Utilities Answer Date Recorded In the past 12 months has e [employer], gas, oil, or water [employer] threatened to shut off services in your [...] any time in the past 12 m [facility], were you homeless or living in [...] Description 03/09/2025 2:45 PM EDT Office Visit [facility] Part of [address] [address] Darryl Hendrix MD [address] [place] [address] F/U hospital stay low platelets Scheduled Orders Name Type Priority Associated Diagnoses Orde r Schedule CBC with Auto Differential Lab STAT Thrombocytopenia weekly for 10 Occurrences starting 02/02/2025 until 02/02/2026 documented as of this encounter Visit Diagnoses Diagnosis Thrombocytopenia- Primary Thrombocytopenia, unspecified documented in this encounter Care Teams Floral Design Teacher Relationship Specialty Start Date End Date Davion Stephenson DO [address] [place] [address] PCP - General Family Medicine 01/22/25 documented as of this encounter
--- OUTSIDE RECORDS SUMMARY | 2025-02-14 09:17 | XMS_ITS | Encounter Summary ---
Author Organization [employer] tem Address [facility] [id number] [address] [place] [address] Care Team Providers Care Restorer Lace And Textiles Name Role Phone Davion Stephenson Primary Care Provider + [phone] Encounter Details Date Type Department Care Team (Late st Contact Info) Description 01/05/2025 Telephone [facility] - Family Medicine [address] [place] [address] Vanessa Umaña CMA Social History Tobacco Use Types Packs/Day Years Used Date Smoking Tobacco: Former Cigarettes 0.5 20 Smokeless Tobacco: Former Comments:Reports quit 2 ken hs ago Alcohol Use Standard Drinks/Week Comments Not Currently 0 (1 standard drink = 0.6 oz pur e alcohol) [facility] Utilities Answer Date Recorded In the past 12 months has [employer] electric, gas, oil, or water company threatened [...] week 07/08/2024 How often do you attend moravian or sabianism serv ices? Never 07/08/2024 Do you belong to any clubs o r organizations such as moravian groups, unions, fraternal or athletic groups, or [...] Answer Date Recorded Total Score 0 11/15/2024 [facility] of Occupat ional Health - Occupational [...] Recorded Do you need help finding a [facility] career center and/or a training program? [...] - Family Medicine [address] [place] [address] Davion Stephenson DO [address], [place] [address] 07/11/2025 10:30 AM EST Office Visit [facility] - Family Medicine [address] [place] [address] Davion Stephenson DO [address], [place] [address] documented as of this encounter Visit Diagnoses Not on filedocumented in this encounter Additional Health Concerns Assessment Noted Time PHQ-9 Depression Total Score: 0 11/16/19 25 8:29 AM EDT documented as of this encounter Care Teams Restorer Lace And Textiles Relationship Specialty Start Date End Date Davion Stephenson DO [address], [place] [address] PCP - General Family Medicine 07/10/22 documented as of this encounter
--- OUTSIDE RECORDS SUMMARY | 2025-02-14 09:17 | XMS_ITS | Referral Summary ---
Author Organization [facility] Address [address] [place] [address] Care Team Providers Care Straight Cutter Name Role Phone Davion Stephenson DO Primary Care Provider Encounters Date Type Department Care Team Description 12/21/2024 Telephone [facility] [address] [place] [address] Mary Rangel MA 11/29/2024 11:40 AM EDT Office Visit [facility] [address] [place] [address] Vasquez Louis MD Pre-op evaluation (Primary Dx); Infrarenal abdominal aortic aneurysm (AAA) without rupture; PAD (peripheral artery disease); Pure hypercholesterolemia; Cigarette nicotine dependence in remission from Last 3 Months Allergies No known active allergies Medications aspirin 81 mg capsule Take 81 mg [...] at Not on file Legal Sex Male 1:23 PM EDT Gender Identity Not on file Sexual Orientation [...] normal EKG Vasquez Louis MD ECG ORDERABLES Final Result from Last 3 Months Insurance [employer] #[id number] [place] [id number] Care Teams Straight Cutter Relationship Specialty Start Date End Date Davion Stephenson DO [address], [place] [address] PCP - General Family Medicine 11/29/24
--- OUTSIDE RECORDS SUMMARY | 2025-02-14 09:17 | XMS_ITS | Encounter Summary ---
Author Organization [employer] tem Address [facility] [place][id number] [address] [place] [address] Care Team Providers Care Screen Tacker Name Role Phone Davion Stephenson Primary Care Provider + [phone] Encounter Details Date Type Department Care Team (Late st Contact Info) Description 02/07/2025 Telephone [facility] [address] [place] [place] [address] Robina Miles Social History Tobacco Use Types Packs/Day Years Used Date Smoking Tobacco: Former Cigarettes 1.7 45.3 0 1979 - 12/22/2024 Smokeless Tobacco: Former Comments:Reports quit 2 ken hs ago Alcohol Use Standard Drinks/Week Comments Not Currently 0 (1 standard drink = 0.6 oz pur e alcohol) [facility] Utilities Answer Date Recorded In the [...] How often do you attend yarsanism or cheondoism serv ices? Never 07/08/2024 Do [...] Answer Date Recorded Total Score 0 02/03/2025 [facility] of Occupat ional Health - Occupational Stress [...] on file documented as of this encounter Miscellaneous Notes * Telephone Encounter - Robina Miles - 02/07/2025 11:04 AM EDT Pt calling into life insurance underwriter after receiving a call Friday about a CT he needs done. There is no documentation of this call in his chart. Per Dr. Cruz last note he was seen on 12/23/24 and there is nothing under the plan for the future in that note. I am unsure of what CT he needs done, or when he needs scheduled. I sent a secure chat to Jessica to call pt back as well. Best number for Ambrosio is [phone] Thank you! Adding Cydney Jain as Jessica is in Clinic today and wont have time for a call back. * Telephone Encounter - Randa Whitehead CMA - 02/07/2025 11:04 AM EDT I Family Law Specialist spoke with Provider's MA, and she will contact patient with the follow through. - Patient last seen OV: 12/23/2024 Thank You * Telephone Encounter - Jessica Doty CMA - 02/07/2025 11:04 AM EDT Called patient and he is a [facility] patient , he will get ahold of the office staff who called him about the CT documented in this encounter Plan of Treatment Upcoming Encounters Date Type Department Care Team (Late st Contact Info) Description 07/06/2025 10:15 AM EST Office Visit [facility] - Family Medicine [address] [place] [address] Davion Stephenson DO [address], [place] [address] 07/11/2025 10:30 AM EST Office Visit [facility] - Family Medicine [address] [place] [address] Davion Stephenson DO [address], [place] [address] documented as of this encounter Visit Diagnoses Not on filedocumented in this encounter Additional Health Concerns Assessment Noted Time PHQ-9 Depression Total Score: 0 02/04/20 25 11:13 AM EDT documented as of this encounter Care Teams Screen Tacker Relationship Specialty Start Date End Date Davion Stephenson DO [address] [place] [address] PCP - General Family Medicine 07/10/22 documented as of this encounter
--- OUTSIDE RECORDS SUMMARY | 2025-02-14 09:17 | XMS_ITS | Encounter Summary ---
Author Organization [employer] tem Address [id number] [address] [place] [address] Care Team Providers Care Substitute Bus Driver Name Role Phone Davion Stephenson Primary Care Provider + [phone] Encounter Details Date Type Department Care Team (Late st Contact Info) Description 01/05/2025 Orders Only [facility] - Family Medicine [address] [place] [address] Ref Prov, [place] [address] Social History Tobacco Use Types Packs/Day Years Used Date Smoking Tobacco: Former Cigarettes 0.5 20 Smokeless Tobacco: Former Comments:Reports quit 2 ken hs ago Alcohol Use Standard Drinks/Week Comments Not Currently 0 (1 standard drink = 0.6 oz pur e alcohol) [facility] Utilities Answer Date Recorded In the past [...] week 07/08/2024 How often do you attend restorationist or orthodox serv ices? Never 07/08/2024 Do you belong to any clubs o r organizations such as restorationist groups, unions, fraternal or athletic groups, or [...] Answer Date Recorded Total Score 0 11/15/2024 [facility] of Occupat ionwy Health - Occupational Stress Questionnaire Answer Date [...] Recorded Do you need help finding a [facility] career center and/or a training program? No [...] Family Medicine [address] [place] [address] Davion Stephenson DO [address], [place] [address] 07/11/2025 10:30 AM EST Office Visit [facility] - Family Medicine [address] [place] [address] Davion Stephenson DO [address], [place] [address] documented as of this encounter Procedures Procedure [...] documented as of this encounter Care Teams Substitute Bus Driver Relationship Specialty Start Date End Date Davion Stephenson DO [address], [place] [address] PCP - General Family Medicine 07/10/22 documented as of this encounter
--- OUTSIDE RECORDS SUMMARY | 2025-02-14 09:17 | XMS_ITS | Encounter Summary ---
Author Organization [employer] tem Address [facility] [place]-[id number] [address] [place] [address] Care Team Providers Care Marine Equipment Design Engineer Name Role Phone Davion Stephenson Primary Care Provider + [phone] Encounter Details Date Type Department Care Team (Latest Contact Info) Description 02/03/2025 Travel Social History Tobacco Use Types Packs/Day Years Used Date Smoking Tobacco: Former Cigarettes 1.7 45.3 0 1979 - 12/22/2024 Smokeless Tobacco: Former Comments:Reports quit 2 ken hs ago Alcohol Use Standard Drinks/Week Comments Not Currently 0 (1 standard drink = 0.6 oz pur e alcohol) [facility] Utilities Answer Date Recorded In the past 12 months has th [employer] electric, gas, oil, or water company threatened [...] week 07/08/2024 How often do you attend anglican or samaritan serv ices? Never 07/08/2024 Do you belong to any clubs o r organizations such as anglican groups, unions, fraternal or athletic groups, or [...] Answer Date Recorded Total Score 0 02/03/2025 [facility] of Occupat ional [...] Recorded Do you need help finding a [facility] career center and/or a training program? [...] - Family Medicine [address] [place] [address] Davion Stephenson DO [address], [place] [address] 07/11/2025 10:30 AM EST Office Visit [facility] - Family Medicine [address] [place] [address] Davion Stephenson DO [address], [place] [address] documented as of this encounter Visit Diagnoses Not on filedocumented in this encounter Additional Health Concerns Assessment Noted Time PHQ-9 Depression Total Score: 0 02/04/20 25 11:13 AM EDT documented as of this encounter Care Teams Marine Equipment Design Engineer Relationship Specialty Start Date End Date Davion Stephenson DO [address], [place] [address] PCP - General Family Medicine 07/10/22 documented as of this encounter
--- OUTSIDE RECORDS SUMMARY | 2025-02-14 09:17 | XMS_ITS | Clinical Summary ---
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 Medications rosuvastatin (CRESTOR) 10 MG tablet Take 1 tablet by mouth nightly for 30 doses 30 tablet 2024 Active pantoprazole (PROTONIX) 40 MG tablet Take 1 tablet by mouth 2 times daily (before meals) for 14 days 28 tablet Active polyethylene glycol (GLYCOLAX) 17 g packet [...] bedtime for 52 doses 52 tablet 2024 Discontinued tetracycline (ACHROMYCIN;SUMY CHELSI) 500 MG capsule Take 1 capsule by mouth 4 times daily for 52 doses 52 capsule 2024 Discontinued rosuvastatin (CRESTOR) 10 MG tablet [...] for 7 doses 7 tablet 2024 Discontinued metroNIDAZOLE (FLAGYL) 500 MG tablet Take 1 tablet by mouth in the morning, at noon, in the evening, and at bedtime for 52 doses 52 tablet 2024 tetracycline (ACHROMYCIN;SUMY CHELSI) 500 MG capsule Take 1 capsule by mouth 4 times daily for 52 doses 52 capsule 2024 predniSONE (DELTASONE) 20 MG tablet Take 1 tablet by mouth daily for 7 doses 7 tablet 025 2024 bismuth subsalicylate (PEPTO BISMOL) 262 MG/15ML suspension Take 30 mLs by mouth 4 times daily for 52 doses 2024 Active Problems Problem Noted Date Diagnosed Date H. pylori infection 01/26/2025 S/P AAA repair 01/23/2025 Thrombocytopenia 01/22/2025 Rash 01/22/2025 Encounters Date Type Department Care Team Description 02/07/2025 Orders Only [facility] Part of [address] [address] Aure Ngo Thrombocytopenia 02/02/2025 5:00 PM EDT Office Visit [facility] Part of [address] [address] Darryl Hendrix MD Thrombocytopenia (Primary Dx) 02/02/2025 Orders Only [facility] Part of [address] [id number] Darryl Hendrix MD Thrombocytopenia (Primary Dx) 01/22/2025 3:32 AM EDT - 01/27/2025 12:35 PM EDT Hospital Encounter [facility] Onc/Med Surg [address] [place] [address] Uzair Wilson MD Retholtz, Michael T, DO [...] drink = 0.6 oz pur e alcohol) [facility] Utilities Answer Date Recorded In the past 12 months has th e [employer], gas, oil, or water [employer] threatened to shut off services in your [...] in the past [address] [facility], were you homeless or living in a [...] 2:45 PM EDT Office Visit [facility] Part of [address] [address] Darryl Hendrix MD [address] [place] [address] F/U hospital stay low platelets Health Maintenance Due Date Last Done Comments Lipids 1970 Depression Screen 1972 DTaP/Tdap/Td vaccine (1 - Tdap) 1979 Colonoscopy 2005 Colorectal Cancer Screen 2005 FIT/FOBT: Average risk 2005 Fecal-DNA (Cologuard): [place] ge risk 2005 Sigmoidoscopy/CT colonography 2005 Pneumococcal [...] & FOLATE Routine 01/23/2025 9:02 AM EDT [id number] ACTIVITY Routine 01/23/2025 9:0 2 AM EDT [...] - 145 mmol/L 01/27/2025 6:04 AM EDT [facility] Potassium 4.3 3.7 - 5.3 mmol/L 01/27/2025 6:04 AM EDT [email or web address] Comment: Specimen hemolysis has exceeded the interference as defined by Aidan. Value may be falsely increased. Suggest recollection if clinically indicated. Chloride 102 98 - 107 mmol/L 01/27/2025 6:04 AM EDT [facility] CO2 21 20 - 31 mmol/L 01/27/2025 6:04 AM EDT [email or web address] Anion Gap 8(L) 9 - 16 mmol/L 01/27/2025 6:04 AM EDT [facility] Glucose 81 74 - 99 mg/dL 01/27/2025 6:04 AM EDT [facility] BUN 15 8 - 23 mg/dL 01/27/2025 6:04 AM EDT [facility] Creatinine 0.7 0.7 - 1.2 mg/dL 01/27/2025 6:04 AM EDT [facility] Est, Glom Filt Rate >90 >60 mL/min/1. 73m2 01/27/2025 6:04 AM EDT [email or web address] Comment: These results are not intended for [...] - 10.4 mg/dL 01/27/2025 6:04 AM EDT [email or web address] Blood BLOOD SPECIMEN / Unknown 01/27/2025 6:04 AM EDT 01/27/2025 6:26 AM EDT us Milind Corley MD CHEMISTRY ORDERABLES Final Resu lt [email or web address] [address] [place] [address], [facility] [phone] * (ABNORMAL) CBC with Auto Differential (01/27/2025 6:04 AM EDT) Only the most recent of10 resultswithin the time period is included. WBC 7.5 3.5 - 11.3 k/uL 01/27/2025 6:04 AM EDT [email or web address] RBC 3.77(L) 4.21 - 5.77 m/uL 01/27/2025 6:04 AM EDT [email or web address] Hemoglobin 10.9(L) 13.0 - 17.0 g/dL 01/27/2025 6:04 AM EDT [email or web address] Hematocrit 33.2(L) 40.7 - 50.3 % 01/27/2025 6:04 AM EDT [email or web address] MCV 88.1 82.6 - 102.9 fL 01/27/2025 6:04 AM EDT [email or web address] MCH 28.9 25.2 - 33.5 pg 01/27/2025 6:04 AM EDT [email or web address] MCHC 32.8 28.4 - 34.8 g/dL 01/27/2025 6:04 AM EDT [email or web address] RDW 13.3 11.8 - 14.4 % 01/27/2025 6:04 AM EDT [email or web address] Platelets See Reflexed IPF Result 138 - 453 k/uL 01/27/2025 6:04 AM EDT [email or web address] Platelet, Fluorescence 29(L) 138 - 453 k/uL 01/27/2025 6:04 AM EDT [email or web address] Platelet, Immature Fraction 14.5(H) 1.1 - 10.3 % 01/27/2025 6:04 AM EDT [email or web address] NRBC Automated 0.0 0.0 per 100 WBC 01/27/2025 6:04 AM EDT [email or web address] Neutrophils % 61 36 - 65 % 01/27/2025 6:04 AM EDT [facility] Lymphocytes % 25 24 - 43 % 01/27/2025 6:04 AM EDT [facility] Monocytes % 11 3 - 12 % 01/27/2025 6:04 AM EDT [facility] Eosinophils % 1 1 - 4 % 01/27/2025 6:04 AM EDT [facility] Basophils % 0 0 - 2 % 01/27/2025 6:04 AM EDT [email or web address] Immature Granulocytes % 1(H) 0 % 01/27/2025 6:04 AM EDT [email or web address] Neutrophils Absolute 4.59 1.50 - 8.10 k/uL 01/27/2025 6:04 AM EDT [email or web address] Lymphocytes Absolute 1.83 1.10 - 3.70 k/uL 01/27/2025 6:04 AM EDT [email or web address] Monocytes Absolute 0.85 0.10 - 1.20 k/uL 01/27/2025 6:04 AM EDT [email or web address] Eosinophils Absolute 0.08 0.00 - 0.44 k/uL 01/27/2025 6:04 AM EDT [email or web address] Basophils Absolute <0.03 0.00 - 0.20 k/uL 01/27/2025 6:04 AM EDT [email or web address] Immature Granulocytes Absolute 0.10 0.00 - 0.30 k/uL 01/27/2025 6:04 AM EDT [email or web address] Blood BLOOD SPECIMEN / Unknown 01/27/2025 6:04 AM EDT 01/27/2025 6:26 AM EDT us Milind Corley MD HEMATOLOGY ORDERABLES Final Res ult [email or web address] [address] [place] [address], [facility] [phone] * (ABNORMAL) H. pylori antigen (01/26/2025 9:17 AM EDT) Specimen Description .FECES 01/26/2025 9:17 AM EDT [email or web address] Direct Exam POSITIVE( A) 01/26/2025 9:17 AM EDT [email or web address] STOOL SPECIMEN / Unknown 01/26/2025 9:17 AM EDT 01/26/2025 9:17 AM EDT Melisa Mejia MD BODY FLUIDS AND STOOLS ORD ERABLES Final Result [email or web address] [address] [phone] * (ABNORMAL) Hepatic Function Panel (01/24/2025 3:32 AM EDT) Only the most recent of2 resultswithin the time period is included. Albumin 3.1(L) 3.5 - 5.2 g/dL 01/24/2025 3:32 AM EDT [facility] Alkaline Phosphatase 61 40 - 129 U/L 01/24/2025 3:32 AM EDT [facility] ALT 28 10 - 50 U/L 01/24/2025 3:32 AM EDT [facility] AST 24 10 - 50 U/L 01/24/2025 3:32 AM EDT [facility] Total Bilirubin 0.6 0.0 - 1.2 mg/dL 01/24/2025 3:32 AM EDT [facility] Bilirubin, Direct 0.1 0.0 - 0.2 mg/dL 01/24/2025 3:32 AM EDT [email or web address] Bilirubin, Indirect 0.5 0.0 - 1.0 mg/dL 01/24/2025 3:32 AM EDT [email or web address] Total Protein 9.5(H) 6.6 - 8.7 g/dL 01/24/2025 3:32 AM EDT [facility] Globulin 6.4 g/dL 01/24/2025 3:32 AM EDT [facility] Albumin/Globulin Ratio 0.5(L) 1.0 - 2.5 01/24/2025 3:32 AM EDT [email or web address] 01/24/2025 3:32 AM EDT 01/24/2025 3:52 AM EDT Milind Corley MD CHEMISTRY ORDERABLES Final Resu lt Performing Organization Address City/[facility]/ZIP Co de Phone Number [facility] [address] [place] [address], [facility] [phone] * PREVIOUS SPECIMEN (01/23/2025 10:21 AM EDT) 01/23/2025 10:2 1 AM EDT 01/23/2025 10:23 AM EDT Uzair Wilson MD CHEMISTRY ORDERABLES Yamile l Result Performing Organization Address City/[facility]/ZIP Co de Phone Number [facility] [address] [place] [address], [facility] [phone] * Serotonin Rel Assay (01/23/2025 10:21 AM EDT) Pathologist [facility] Heparin Type Porcine Heparin 01/23/2025 10:21 AM EDT [facility] KIM Heparin Platelet Antibody Negative Negative 01/23/2025 10:21 AM EDT [facility] KIM Porc Low Dose 3 % 025 10:21 AM EDT [facility] KIM Porc High Dose 0 % 2024 10:21 AM EDT [facility] SEROTONIN RELEASING ASSAY See Note 01/23/2025 10:21 AM EDT [facility] Comment: (NOTE) This patient's specimen demonstrates [...] regarding diagnosis of HIT is available at [email or web address] INTERPRETIVE INFORMATION: KIM, Unfractionated Heparin This test was developed and its performance characteristics determined by [facility]. It has not been cleared or approved by the US Food and Drug Administration. This test was performed in a CLIA certified laboratory and is intended for clinical purposes. Performed By: [facility] [address] [place] [id number] Director Of Outreach: Mariusz Melo MD, PhD CLIA Number: [id number] 01/23/2025 10:2 1 AM EDT 01/23/2025 10:23 AM EDT Uzair Wilson MD CHEMISTRY ORDERABLES Yamile l Result Performing Organization Address [facility]/ZIP Co de Phone Number [email or web address] [address] [place] [address], [facility] [phone] [phone] * Immunotyping, Serum (01/23/2025 9:02 AM EDT) ITYP Interpretation Immunotyping is negative for monoclonal immunoglobulin. 01/23/2025 9:02 AM EDT [email or web address] Pathologist Review ELECTRONICALLY SIGNED. PILLO ELY M.D. 01/23/2025 9:02 AM EDT [email or web address] 01/23/2025 9:02 AM EDT 01/23/2025 9:06 AM EDT us Pérez Flynn MD MICRO PHOTOGRAPHER RY ORDERABLES Final Result Performing Organization Address [facility]/ZIP Co de Phone Number [email or web address] [address] [place] [address], [facility] [phone] * Vitamin B12 & Folate (01/23/2025 9:02 AM EDT) Vitamin B-12 624 232 - 1245 pg/mL 01/23/2025 9:02 AM EDT [email or web address] Folate 11.7 4.8 - 24.2 ng/mL 01/23/2025 9:02 AM EDT [email or web address] Blood BLOOD SPECIMEN / Unknown 01/23/2025 9:02 AM EDT 01/23/2025 9:06 AM EDT Pérez Flynn MD MICRO PHOTOGRAPHER RY ORDERABLES Final Result [email or web address] [address] [place], [place] [address] [phone] * (ABNORMAL) Cytomegalovirus Ab,IGG,IGM (01/23/2025 9:02 AM EDT) CMV IgG 744.0(H) <0.5 01/23/2025 9:02 AM EDT [email or web address] Comment: Reference Range: <0.5 Non Reactive 0.5 [...] IgM 0.2 <0.7 01/23/2025 9:02 AM EDT [email or web address] Comment: Reference Range: <0.7 Non Reactive 0.7 [...] 01/23/2025 9:06 AM EDT Pérez Flynn MD MICRO PHOTOGRAPHER RY ORDERABLES Final Result [email or web address] [address] [place] [address], [facility] [phone] * (ABNORMAL) Federico Sewell Panel (01/23/2025 9:02 AM EDT) [facility] EBV VCA,IgG >750.0(H) 0.0 - 21.9 U/mL 01/23/2025 9:02 AM [facility] Comment: (NOTE) INTERPRETIVE INFORMATION: Federico-Sewell Virus Antibody to Viral Capsid Antigen, IgG 17.9 U/mL or less.......Not Detected 18.0-21.9 U/mL..........Indeterminate - Repeat testing in 10-14 days may be helpful. 22.0 U/mL or greater....Detected EBV VCA,IgM 26.5 0.0 - 43.9 U/mL 01/23/2025 9:02 AM T [facility] Comment: (NOTE) INTERPRETIVE INFORMATION: Federico-Sewell Virus Antibody to Viral Capsid Antigen, IgM 35.9 U/mL or less.......Not Detected 36.0-43.9 U/mL..........Indeterminate - Repeat testing in 10-14 days may be helpful. 44.0 U/mL or greater....Detected EBV Nuclear Ag Ab >600.0(H) 0.0 - 21.9 U/mL 01/23/2025 9:02 AM T [facility] Comment: (NOTE) INTERPRETIVE INFORMATION: Federico-Sewell Virus Antibody to Nuclear Antigen, IgG 17.9 U/mL or less.......Not Detected 18.0-21.9 U/mL..........Indeterminate - Repeat testing in 10-14 days may be helpful. 22.0 U/mL or greater....Detected EBV Early Antigen Ab, IgG >150.0(H) 0.0 - 10.9 U/mL 01/23/2025 9:02 AM [facility] Comment: (NOTE) INTERPRETIVE INFORMATION: Federico-Sewell Virus Antibody to Early D Antigen (EA-D), IgG 8.9 U/mL or less........Not Detected 9.0-10.9 U/mL...........Indeterminate - Repeat testing in 10-14 days may be helpful. 11.0 U/mL or greater....Detected Performed By: [facility] [address] [place] [address] Director Of Outreach: Mariusz Melo MD, PhD CLIA Number: [id number] 01/23/2025 9:02 AM EDT 01/23/2025 9:06 AM EDT Pérez Flynn MD MICRO PHOTOGRAPHER RY ORDERABLES Final Result Performing Organization Address [facility] [place] [address], [facility] [phone] [facility] [address] [place] [address] * [id number] ACTIVITY (01/23/2025 9:02 AM EDT) [id number] Activity >100 >=61 % 9:02 AM EDT [facility] Comment: (NOTE) INTERPRETIVE INFORMATION: [id number] Activity SBLABM10 levels of less than 10 percent may be associated with either inherited (Tomeka-Abel Syndrome) or acquired thrombotic thrombocytopenic purpura (TTP). A variety of medical conditions may result in a mild to moderate deficiency of PRECNR53 activity. Recent plasma exchange therapy may raise the observed GBPNFU85 activity. This test was developed and its performance characteristics determined by [facility]. It has not been cleared or approved by the US Food and Drug Administration. This test was performed in a CLIA certified laboratory and is intended for clinical purposes. Performed By: [facility] [address] [place] [address] Director Of Outreach: Mariusz Melo MD, PhD CLIA Number: [id number] Blood BLOOD SPECIMEN / Unknown 01/23/2025 9:02 AM EDT 01/23/2025 9:06 AM EDT Pérez Flynn MD MICRO PHOTOGRAPHER RY ORDERABLES Final Result Performing Organization Address City/[facility]/[place] [address], [facility] [phone] [facility] [address] [place] [address] * (ABNORMAL) Electrophoresis Protein, Serum (01/23/2025 9:02 AM EDT) [facility] Total Protein 8.3 6.6 - 8.7 g/dL 01/23/2025 9:02 AM [email or web address] Albumin (calculated) 3.1(L) 3.2 - 5.2 g/dL 01/23/2025 9:02 AM [email or web address] Albumin % 37(L) 56 - 66 % 01/23/2025 9:02 AM [email or web address] Xbhgk-2-Vwzoagtf 0.4 0.1 - 0.4 g/dL 01/23/2025 9:02 AM [email or web address] Alpha 1 % 5 3 - 5 % 01/23/2025 9:02 AM [email or web address] Vgzda-8-Kkbcthfs 1.0(H) 0.5 - 0.9 g/dL 01/23/2025 9:02 AM [email or web address] Alpha 2 % 11 7 - 12 % 01/23/2025 9:02 AM [email or web address] Beta Globulin 0.8 0.7 - 1.4 g/dL 01/23/2025 9:02 AM [email or web address] Beta Percent 10 8 - 13 % 01/23/2025 9:02 AM [facility] Gamma Globulin 3.1(H) 0.5 - 1.5 g/dL 01/23/2025 9:02 AM [email or web address] Gamma Globulin % 37(H) 11 - 19 % 01/23/2025 9:02 AM [email or web address] Total Prot. Sum 8.4(H) 6.3 - 8.2 g/dL 01/23/2025 9:02 AM [facility] Total Prot. Sum,% 100 98 - 102 % 01/23/2025 9:02 AM [email or web address] Protein Electrophoresis, Serum Albumin is decreased. May be observed with hepatic diseases, 01/23/2025 9:02 AM [email or web address] Comment: proteinuria, malnutrition, acute phase response, and [...] PILLO ELY M.D. 01/23/2025 9:02 AM EDT [email or web address] BLOOD SPECIMEN / Unknown 01/23/2025 9:02 AM EDT 01/23/2025 9:06 AM EDT Pérez Flynn MD IMMUNOL OGY ORDERABLES Final Result [email or web address] [place] [address], [facility] [phone] * US LIVER SPLEEN (01/22/2025 9:17 PM [...] for comparison. HISTORY: ORDERING SYSTEM PROVIDED HISTORY: [facility] TECHNOLOGIST PROVIDED HISTORY: [facility] FINDINGS: Mediastinum: Thoracic aorta [...] - 9.1 min 01/22/2025 12:17 PM EDT [email or web address] LY30(Lysis) TEG 0.0 0.0 - 2.6 % 01/22/2025 12:17 PM EDT [email or web address] MA(Max Clot) Rapid TEG <40.0(L) 52.0 - 70 mm 01/22/2025 12:17 PM EDT [email or web address] Fibrinogen, Functional TEG 39.8(H) 15.0 - 32.0 mm 01/22/2025 12:17 PM EDT [email or web address] BLOOD SPECIMEN / Unknown 01/22/2025 12:17 PM EDT 01/22/2025 12:22 PM EDT Vitor Joseph MD HEMATOLOGY ORDERABLES Final R esult [email or web address] [address] [place] [address], [facility] [phone] * Hepatitis Panel, Acute (01/22/2025 12:17 PM EDT) Hepatitis B Surface Ag NONREACTIVE NONREACTIVE 01/22/2025 12:17 PM EDT [email or web address] Hepatitis C Ab NONREACTIVE NONREACTIVE 01/23/20 12:17 PM EDT [email or web address] Comment: The hepatitis C procedure used in [...] IgM NONREACTIVE NONREACTIVE 12/31 12:17 PM EDT [facility] Hep A IgM NONREACTIVE NONREACTIVE 01/22/2025 12:17 PM EDT [facility] Blood BLOOD SPECIMEN / Unknown 01/22/2025 12:17 PM EDT 01/22/2025 12:21 PM EDT Vitor Joseph MD IMMUNOLOGY ORDERABLES Final R esult Performing Organization Address City/[facility]/ZIP Co de Phone Number [email or web address] [address] [place] [address], [facility] [phone] * Culture, Blood 1 (01/22/2025 12:13 PM EDT) Only the most recent of2 resultswithin the time period is included. Specimen Description .BLOOD 01/22/2025 12:13 PM EDT [email or web address] Special Requests RH 9ML 01/22/2025 12:13 PM EDT [facility] [employer] Culture NO GROWTH 5 DAYS 01/22/2025 12:13 PM EDT [facility] [employer] BLOOD SPECIMEN / Unknown 01/22/2025 12:13 PM EDT 01/22/2025 12:23 PM EDT Vitor Joseph MD MICROBIOLOGY - GENERAL ORDERA BLES Final Result Performing Organization Address [facility]/ZIP Co de Phone Number [email or web address] [address] [place] [address], [facility] [phone] * XR CHEST PORTABLE (01/22/2025 10:50 AM [...] No acute pulmonary findings. Pérez Flynn MD [facility] ORDERABLES Final Result * (ABNORMAL) Arterial Blood Gas, POC (01/22/2025 10:30 AM EDT) POC pH 7.511(H) 7.350 - 7.450 01/22/2025 10:30 AM EDT [email or web address] POC pCO2 27.3(L) 35.0 - 48.0 mm Hg 01/22/2025 10:30 AM EDT [email or web address] POC PO2 87.1 83.0 - 108.0 mm Hg 01/22/2025 10:30 AM EDT [email or web address] POC HCO3 21.9 21.0 - 28.0 mmol/L 01/22/2025 10:30 AM EDT [email or web address] Positive Base Excess, Art 0.2 0.0 - 3.0 mmol/L 01/22/2025 10:30 AM EDT [email or web address] POC O2 SAT 97.7 94.0 - 98.0 % 01/22/2025 10:30 AM EDT [email or web address] O2 Delivery Device Room Air 01/22/2025 10:30 AM EDT [email or web address] Jone Test POSITIVE 01/22/2025 10:30 AM EDT [email or web address] Sample Site Right Radial Artery 01/22/2025 10:30 AM EDT [email or web address] 01/22/2025 10:3 0 AM EDT 01/22/2025 10:32 AM EDT Uzair Wilson MD POINT OF CARE TEST ORDERA BLES Final Result Performing Organization Address [facility]/ZIP Co de [place] [address], [facility] [phone] * (ABNORMAL) POCT Glucose (01/22/2025 10:30 AM EDT) Pathologist [facility] POC Glucose 126(H) 74 - 100 mg/dL 01/22/2025 10:30 AM EDT [email or web address] 01/22/2025 10:3 0 AM EDT 01/22/2025 10:32 AM EDT Uzair Wilson MD POINT OF CARE TEST ORDERA BLES Final Result Performing Organization Address [facility] de Phone Number [email or web address] [employer] [address] [place] [address], [facility] [phone] * (ABNORMAL) ONOFRE profile (01/22/2025 9:34 AM EDT) Anti-Orozco 1.6 <7.0 U/mL 01/22/2025 9:34 AM EDT [email or web address] Comment: Reference Range: <7.0 Negative 7.0-10.0 Equivocal >10.0 Positive Ribosomal P Ab 7.9(H) <7.0 U/mL 01/22/2025 9:34 AM EDT [email or web address] Comment: Reference Range: <7.0 Negative 7.0-10.0 Equivocal >10.0 Positive RNA Polymerase III Antibodies, IgG 1.5 <7.0 U/mL 01/22/2025 9:34 AM EDT [email or web address] Comment: Reference Range: <7.0 Negative 7.0-10.0 Equivocal >10.0 Positive Anti-Scleroderm a 3.0 <7.0 U/mL 01/22/2025 9:34 AM [email or web address] Comment: Reference Range: <7.0 Negative 7.0-10.0 Equivocal >10.0 Positive Anti-RNP70 1.7 <7.0 U/mL 01/22/2025 9:34 AM [email or web address] Comment: Reference Range: <7.0 Negative 7.0-10.0 Equivocal >10.0 Positive Anti-U1RNP 3.1 <5.0 U/mL 01/22/2025 9:34 AM [email or web address] Comment: Reference Range: <5.0 Negative 5.0-10.0 Equivocal >10.0 Positive SSA 52 (RO) (DAVID) AB, IGG 0.9 <7.0 U/mL 01/22/2025 9:34 AM [email or web address] Comment: Reference Range: <7.0 Negative 7.0-10.0 Equivocal >10.0 Positive SSA 60 (RO) (DAVID) AB, IGG 1.0 <7.0 U/mL 01/22/2025 9:34 AM [email or web address] Comment: Reference Range: <7.0 Negative 7.0-10.0 Equivocal >10.0 Positive Anti SSB 0.7 <7.0 U/mL 01/22/2025 9:34 AM [email or web address] Comment: Reference Range: <7.0 Negative 7.0-10.0 Equivocal >10.0 Positive Anti VAL-1 0.7 <7.0 U/mL 01/22/2025 9:34 AM [email or web address] Comment: Reference Range: <7.0 Negative 7.0-10.0 Equivocal >10.0 Positive Anti-Centromere 1.0 <7.0 U/mL 9:34 AM [email or web address] Comment: Reference Range: <7.0 Negative 7.0-10.0 Equivocal >10.0 Positive 01/22/2025 9:34 AM EDT 01/22/2025 9:46 AM EDT Pérez HAYNES OGY ORDERABLES Final Result [email or web address] [address] [place] [address] * (ABNORMAL) ONOFRE SCREEN WITH REFLEX (01/22/2025 9:34 AM EDT) Pathologist [facility] ONOFRE POSITIVE( A) NEGATIVE 01/22/2025 9:34 AM EDT [email or web address] DAVID Antibodies Screen 0.5 <0.7 U/mL 01/22/2025 9:34 AM EDT [email or web address] Comment: Reference Range: <0.7 Negative 0.7-1.0 Equivocal >1.0 Positive DAVID Screen includes U1RNP,RNP70,Sm,Ro(SS-A),La(SS-B),CENP,Scl-70,Val-1 Anti ds DNA 35.0(H) <10.0 IU/mL 01/22/2025 9:34 AM EDT [email or web address] Comment: Reference Range: <10.0 Negative 10.0-15.0 Equivocal >15.0 Positive BLOOD SPECIMEN / Unknown 01/22/2025 9:34 AM EDT 01/22/2025 9:46 AM EDT Pérez Flynn MD MICRO PHOTOGRAPHER RY ORDERABLES Final Result [email or web address] [address] [place] [address], [facility] [phone] * Procalcitonin (01/22/2025 9:34 AM EDT) Pathologist [facility] Procalcitonin 0.06 0.00 - 0.09 ng/mL 01/22/2025 9:34 AM EDT [email or web address] Comment: Suspected Sepsis: <0.50 ng/mL Low likelihood [...] entered into the Change in Procalcitonin Calculator ([email or web address]) to determine the patient's Mortality Risk Prognosis In healthy neonates, plasma Procalcitonin (PCT) concentrations increase gradually after , reaching peak values at about 24 hours of age then decrease to normal values below 0.5 ng/mL by 48-72 hours of age. Blood BLOOD SPECIMEN / Unknown 01/22/2025 9:34 AM EDT 01/22/2025 9:46 AM EDT Pérez Flynn MD MICRO PHOTOGRAPHER RY ORDERABLES Final Result Performing Organization Address [facility] Phone Number [email or web address] [address] [place] [address] * (ABNORMAL) Heparin-Induced Platelet Antibody (01/22/2025 9:34 AM EDT) Pathologist [facility] Heparin Induced Plt Ab 1.247(H) 0.000 - 0.400 O.D. 01/22/2025 9:34 AM EDT [email or web address] Comment: O.D. Interpretation: <=0.400 Negative > 0.400 Positive 01/22/2025 9:34 AM EDT 01/22/2025 9:46 AM EDT Pérez Flynn MD HEMATOL OGY ORDERABLES Final Result Performing Organization Address [facility] de Phone Number [email or web address] [address] [place] [address] * (ABNORMAL) Fibrin [employer] (01/22/2025 9:34 AM EDT) Pathologist [facility] FDP >5(H) <5 ug/mL 01/22/2025 9:34 AM EDT [email or web address] Comment:<20 Blood BLOOD SPECIMEN / Unknown 01/22/2025 9:34 AM EDT 01/22/2025 9:46 AM EDT Pérez Flynn MD HEMATOL OGY ORDERABLES Final Result Performing Organization Address [facility] Co de Phone Number [address] [phone] * HIV Screen (01/22/2025 9:34 AM EDT) Pathologist [facility] HIV Ag/Ab NONREACTIVE NONREACTIVE 01/22/2025 9:34 AM EDT [facility] [employer] Comment: No laboratory evidence of HIV infection. If acute HIV infection is suspected, consider testing for HIV-1 RNA. BLOOD SPECIMEN / Unknown 01/22/2025 9:34 AM EDT 01/22/2025 9:46 AM EDT Pérez Flynn MD IMMUNOL OGY ORDERABLES Final Result Performing Organization Address [facility] Phone Number [facility] [employer] [address] [place] [address] * (ABNORMAL) Fibrinogen (01/22/2025 9:34 AM EDT) Pathologist [facility] Fibrinogen 681(H) 203 - 521 mg/dL 01/22/2025 9:34 AM EDT [facility] [employer] Blood BLOOD SPECIMEN / Unknown 01/22/2025 9:34 AM EDT 01/22/2025 9:46 AM EDT Pérez Flynn MD HEMATOL OGY ORDERABLES Final Result Performing Organization Address [facility] Co ms Phone Number [facility] [employer] [address] [place] [address], [facility] [phone] * (ABNORMAL) D-Dimer, Quantitative (01/22/2025 9:34 AM EDT) Pathologist [facility] D-Dimer, Quant 2.86(H) 0.00 - 0.57 ug/mL FEU 01/22/2025 9:34 AM EDT [email or web address] Comment: When combined with a low clinical [...] OGY ORDERABLES Final Result Performing Organization Address City/State/[facility] Co de Phone Number [email or web address] [address] [place] [address] * DIRECT ANTIGLOBULIN TEST (01/22/2025 9:34 AM EDT) Pathologist [facility] FELIPE, Polyspecific NEGATIVE 01/22/2025 9:34 AM EDT [email or web address] BLOOD SPECIMEN / Unknown 01/22/2025 9:34 AM EDT 01/22/2025 9:47 AM EDT Pérez Flynn MD BLOOD B ANK TEST ORDERABLES Final Result Performing Organization Address [facility] Co de Phone Number [email or web address] [address] [place] [address], [facility] [phone] * MRSA DNA Probe, Nasal (01/22/2025 4:56 AM EDT) Specimen Description .NASAL SWAB 01/22/2025 4:56 AM EDT [email or web address] MRSA, DNA, Nasal NEGATIVE NEGATIVE 01/23/20 4:56 AM EDT [email or web address] Comment: NEGATIVE: MRSA DNA not detected by [...] ES Final Result Performing Organization Address [facility] Co de Phone Number [email or web address] [address] [place] [address], [facility] [phone] * (ABNORMAL) Urinalysis with Reflex to Culture (01/22/2025 4:25 AM EDT) Color, UA Yellow Yellow 01/22/2025 4:25 AM EDT [facility] Turbidity UA Clear Clear 01/22/2025 4:25 AM EDT [email or web address] Glucose, Ur NEGATIVE NEGATIVE mg/dL 01/22/2025 4:25 AM EDT [email or web address] Bilirubin, Urine NEGATIVE NEGATIVE 01/22/2025 4:25 AM EDT [email or web address] Ketones, Urine NEGATIVE NEGATIVE mg/dL 01/22/2025 4:25 AM EDT [email or web address] Specific [place], UA 1.052(H) 1.005 - 1.030 01/22/2025 4:25 AM EDT [email or web address] Urine Hgb MODERATE(A) NEGATIVE 01/22/2025 4:25 AM EDT [email or web address] pH, Urine 5.5 5.0 - 8.0 01/22/2025 4:25 AM EDT [email or web address] Protein, UA NEGATIVE NEGATIVE mg/dL 01/22/2025 4:25 AM EDT [email or web address] Urobilinogen, Urine Normal 0.0 - 1.0 EU/dL 01/22/2025 4:25 AM EDT [email or web address] Nitrite, Urine NEGATIVE NEGATIVE 01/22/2025 4:25 AM EDT [email or web address] Leukocyte Esterase, Urine NEGATIVE NEGATIVE 01/22/2025 4:25 AM EDT [email or web address] URINE SPECIMEN / Unknown 01/22/2025 4:25 AM EDT 01/22/2025 4:25 AM EDT Vitor Joseph MD URINE ORDERABLES Final Result Performing Organization Address [facility] de Phone Number [email or web address] [address] [place] [address], [facility] [phone] * Microscopic Urinalysis (01/22/2025 4:25 AM EDT) WBC, UA None 0 - 5 /HPF 01/22/2025 4:25 AM EDT [email or web address] RBC, UA 10 TO 20 0 - 4 /HPF 01/22/2025 4:25 AM EDT [email or web address] Comment:Reference range defi sapna for non-centrifuged specimen. Casts UA None Reference range defined for non-centrifug ed specimen. 0 - 8 /LPF 01/22/2025 4:25 AM EDT [email or web address] Epithelial Cells, UA None 0 - 5 /HPF 01/22/2025 4:25 AM EDT [email or web address] Bacteria, UA None None 01/22/2025 4:25 AM EDT [email or web address] 01/22/2025 4:25 AM EDT 01/22/2025 4:25 AM EDT Vitor Joseph MD URINE ORDERABLES Final Result Performing Organization Address [facility] de Phone Number [email or web address] [address] [place] [address], [facility] [phone] * (ABNORMAL) Myoglobin, Blood (01/22/2025 4:18 AM EDT) Myoglobin 27(L) 28 - 72 ng/mL 01/22/2025 4:18 AM EDT [email or web address] 01/22/2025 4:18 AM EDT 01/22/2025 4:18 AM EDT Uzair Wilson MD CHEMISTRY ORDERABLES Yamile l Result Performing Organization Address City/[facility]/ZIP Co de Phone Number [facility] [place] [address] [phone] * TSH reflex to FT4 (01/22/2025 4:18 AM EDT) Pathologist [facility] TSH 1.24 0.27 - 4.20 uIU/mL 01/22/2025 4:18 AM EDT [facility] [employer] 01/22/2025 4:18 AM EDT 01/22/2025 4:18 AM EDT Uzair Wilson MD CHEMISTRY ORDERABLES Yamile l Result Performing Organization Address [facility] de Phone Number [address] [phone] * SURGICAL PATHOLOGY REPORT (01/22/2025 4:18 AM EDT) Pathologist [facility] Surgical Pathology Report [id number] [facility] CONSULTING PATHOLOGISTS [facility] ANATOMIC PATHOLOGY [address] [place], [place] [phone] SURGICAL PATHOLOGY CONSULTATION Patient Name: IRMA RAMÍREZ V. MR#: [id number] Specimen #[id number] Procedures/Adden da PERIPHERAL BLOOD REPORT Date Ordered: 01/23/2025 Status: Signed Out Date Complete: 01/25/2025 By: Tamanna Gonzales M.D. Date Reported: 01/25/2025 INTERPRETATION Peripheral blood: - Normocytic red blood cells with unremarkable morphology. - White blood cells with normal morphology. No blasts. - Marked thrombocytopenia . RESULTS-COMMENTS PERIPHERAL BLOOD STUDY CBC: Please see the electronic health record for CBC parameters ([id number], 01/22/2025, 04:18). PLATELETS: Marked thrombocytopenia . LEUKOCYTES: White blood cells show normal morphology. No atypical lymphocytes. No dysplasia. There are no blasts. ERYTHROCYTES: Red blood cells show normal morphology. No schistocytes. Note: The electronic health record is reviewed. Tamanna Gonzales M.D. Source: A: Peripheral Blood [facility] 01/22/2025 4:18 AM EDT 01/23/2025 1:22 PM EDT Uzair Wilson MD PATHOLOGY/CYTOLOGY ORDERA BLES Final Result Performing Organization Address [facility] Co de Phone Number [email or web address] [address] [place] [address], [facility] [phone] [facility] * (ABNORMAL) Sedimentation Rate (01/22/2025 4:18 AM EDT) Sed Rate, Automated 119(H) 0 - 20 mm/Hr 01/22/2025 4:18 AM EDT [email or web address] 01/22/2025 4:18 AM EDT 01/22/2025 4:18 AM EDT Uzair Wilson MD HEMATOLOGY ORDERABLES Fin al Result Performing Organization Address [facility]/ZIP Co de Phone Number [email or web address] [address] [place] [address], [facility] [phone] * Path Review, Smear (01/22/2025 4:18 AM EDT) Pathologist Review ELECTRONICALLY SIGNED. TAMANNA GONZALES M.D. 01/22/2025 4:18 AM EDT [email or web address] 01/22/2025 4:18 AM EDT 01/22/2025 4:18 AM EDT Uzair Wilson MD HEMATOLOGY ORDERABLES Fin al Result Performing Organization Address City/[facility]/ZIP Co de Phone Number [email or web address] [address] [place] [address] * Reticulocytes (01/22/2025 4:18 AM EDT) Pathologist [facility] Retic Ct Pct 0.8 0.5 - 1.9 % 01/22/2025 4:18 AM EDT [email or web address] Absolute Retic # 0.039 0.030 - 0.080 M/uL 01/22/2025 4:18 AM EDT [email or web address] Immature Retic Fract 17.0 2.7 - 18.3 % 01/22/2025 4:18 AM EDT [email or web address] Retic Hemoglobin 29.9 28.2 - 35.7 pg 01/22/2025 4:18 AM EDT [email or web address] 01/22/2025 4:18 AM EDT 01/22/2025 4:18 AM EDT Uzair Wilson MD HEMATOLOGY ORDERABLES Fin al Result Performing Organization Address [facility] Co de Phone Number [email or web address] [address] [place] [address] * (ABNORMAL) C-Reactive Protein (01/22/2025 4:18 AM EDT) [facility] CRP 38.0(H) 0.0 - 5.0 mg/L 01/22/2025 4:18 AM EDT [email or web address] 01/22/2025 4:18 AM EDT 01/22/2025 4:18 AM EDT Uzair Wilson MD CHEMISTRY ORDERABLES Yamile l Result Performing Organization Address [facility]/ZIP Co de Phone Number [email or web address] [address] [place] [address] * Lactate Dehydrogenase (01/22/2025 4:18 AM EDT) Pathologist [facility] LD 193 135 - 225 U/L 01/22/2025 4:18 AM EDT [email or web address] 01/22/2025 4:18 AM EDT 01/22/2025 4:18 AM EDT Uzair Wilson MD CHEMISTRY ORDERABLES Yamile l Result Performing Organization Address [facility]/ZIP Co de Phone Number [email or web address] [address] [place] [address], [facility] [phone] * Lactic Acid (01/22/2025 4:18 AM EDT) Lactic Acid, Whole Blood 1.3 0.7 - 2.1 mmol/L 01/22/2025 4:18 AM EDT [email or web address] 01/22/2025 4:18 AM EDT 01/22/2025 4:18 AM EDT Uzair Wilson MD CHEMISTRY ORDERABLES Yamile l Result Performing Organization Address [facility] Co de Phone Number [email or web address] [address] [place] [address], [facility] [phone] * (ABNORMAL) Haptoglobin (01/22/2025 4:18 AM EDT) Haptoglobin 381(H) 30 - 200 mg/dL 01/22/2025 4:18 AM EDT [email or web address] 01/22/2025 4:18 AM EDT 01/22/2025 4:18 AM EDT Uzair Wilson MD CHEMISTRY ORDERABLES Yamile l Result Performing Organization Address City/[facility]/ZIP Co de Phone Number [email or web address] [address] [place] [address], [facility] [phone] * CK (01/22/2025 4:18 AM EDT) Total CK 62 39 - 308 U/L 01/22/2025 4:18 AM EDT [email or web address] 01/22/2025 4:18 AM EDT 01/22/2025 4:18 AM EDT Uzair Wilson MD CHEMISTRY ORDERABLES Yamile l Result Performing Organization Address [facility] Phone Number [email or web address] [address] [place] [address] * (ABNORMAL) APTT (01/22/2025 4:07 AM EDT) APTT 66.5(H) 23.0 - 36.5 sec 01/22/2025 4:07 AM EDT [email or web address] Comment: IV Heparin Therapy Range: 66.0-92.0 sec Blood BLOOD SPECIMEN / Unknown 01/22/2025 4:07 AM EDT 01/22/2025 4:10 AM EDT Milind Corley MD HEMATOLOGY ORDERABLES Final Res ult Performing Organization Address [facility] Phone Number [email or web address] [address] [place] [address] * Protime-INR (01/22/2025 4:07 AM EDT) Protime 14.2 11.7 - 14.9 sec 01/22/2025 4:07 AM EDT [email or web address] INR 1.1 01/22/2025 4:07 AM EDT [email or web address] Comment: Therapeutic Range: Moderate Anticoagulant Intensity: INR = 2.0-3.0 High Anticoagulant Intensity: INR = 2.5-3.5 01/22/2025 4:07 AM EDT 01/22/2025 4:10 AM EDT Milind Corley MD HEMATOLOGY ORDERABLES Final Res ult Performing Organization Address [facility] Co de Phone Number [email or web address] [address] [place] [address] from Last [address] [place] [address] PHCS Advance Directives Documents on File Type Date Recorded Patient Cardiac Nurse Expl anation ACP-Advance Directive 01/28/2025 7:41 PM * Full Code (Latest Code Status on File) Date Activated Date Inactivated Comments 01/22/2025 3:47 AM 01/27/2025 2:42 PM Care Teams Visual Coordinator Relationship Specialty Start Date End Date Davion Stephenson DO [address] [place] [address] PCP - General Family Medicine 01/22/25
--- OUTSIDE RECORDS SUMMARY | 2025-02-14 09:17 | XMS_ITS | Encounter Summary ---
Author Organization [employer] tem Address [facility] [id number] [address] [place] [address] Care Team Providers Care Mosquito Sprayer Name Role Phone Davion Stephenson Primary Care Provider + [phone] Encounter Details Date Type Department Care Team (Late st Contact Info) Description 11/22/2024 Orders Only [facility] Internal Medicine - Family Medicine [address] [place] [address] Alejandrina Felipe CMA Abdominal aortic aneurysm (AAA) without rupture, unspecified part ([facility]) Social History Tobacco Use Types Packs/Day Years Used Date Smoking Tobacco: Every Day Cigarettes 0.5 20 Smokeless Tobacco: Never Alcohol Use Standard Drinks/Week Comments Not Currently 0 (1 standard drink = 0.6 oz pur e alcohol) [facility] Utilities Answer Date Recorded In [...] week 07/08/2024 How often do you attend gnosticist or synagogue serv ices? Never 07/08/2024 Do you belong to any clubs o r organizations such as gnosticist groups, unions, fraternal or athletic groups, or [...] Answer Date Recorded Total Score 0 11/15/2024 [facility] of Occupat ional Health - [...] Family Medicine [address] [place] [address] Davion Stephenson DO [address], [place] [address] 07/11/2025 10:30 AM EST Office Visit [facility] Internal Medicine - Family Medicine [address] [place] [address] Davion Stephenson DO [address], [place] [address] documented as of this encounter Procedures Procedure Name Priority Date/Time Associated Diagnosis Comments US RETROPERITONEAL LIMITED Routine 11/22 10:00 AM EDT Abdominal aortic aneurysm (AAA) without rupture, unspecified part ([facility]) documented in this encounter Results * Ultrasound [...] documented as of this encounter Care Teams Mosquito Sprayer Relationship Specialty Start Date End Date Davion Stephenson DO [address], [place] [address] PCP - General Family Medicine 07/10/22 documented as of this encounter
--- OUTSIDE RECORDS SUMMARY | 2025-02-14 09:17 | XMS_ITS | Clinical Summary ---
Author Organization [employer] tem Address [id number] [address] [place] [address] Care Team Providers Care House Worker General Name Role Phone Davion Stephenson Primary Care Provider [phone] Allergies No known active allergies Medications rosuvastatin [...] Date Type Department Care Team Description 02/07/2025 Telephone [facility] [address] [place] [address] Robina Miles 02/03/2025 11:30 AM EDT Office Visit [facility] Internal Medicine - Family Medicine [address] [place] [address] Davion Stephenson, Idiopathic thrombocytopenic purpura ([facility]) (Primary Dx); H. pylori infection; Abdominal aortic aneurysm (AAA) without rupture, unspecified part 02/03/2025 Travel 01/31/2025 Orders Only [facility] Internal Medicine - Family Medicine [address] [place] [address] Ref Prov, Not In System 01/28/2025 Orders Only [facility] Internal Medicine - Family Medicine [address] [place] [address] Ref Prov, Not In System 01/13/2025 2:00 PM EDT Office Visit [facility] Medicine - Family Medicine [address] [place] [address] Davion Stephenson DO Abdominal aortic aneurysm (AAA) without rupture, unspecified part (Primary Dx); Ex-cigarette smoker; Elevated blood pressure reading 01/13/2025 Travel 01/13/2025 Orders Only [facility] Internal Medicine - Family Medicine [address] [place] [address] Ref Prov, Not In System 01/05/2025 Telephone [facility] Internal Medicine - Family Medicine [address] [place] [address] Vanessa Umaña [facility] 01/05/2025 Orders Only [facility] Internal Medicine - Family Medicine [address] [place] [address] Ref Prov, Not In System 12/23/2024 10:00 AM EDT Office Visit [facility] Vascular Surgery [address] [place] [address] April Thompson MD Abdominal aortic aneurysm (AAA) without rupture, unspecified part (Primary Dx) 12/23/2024 Travel 12/02/2024 10:40 AM EDT Office Visit [facility] Vascular Surgery [address] [place] [address] April Thompson MD Abdominal aortic aneurysm (AAA) without rupture, unspecified part (Primary Dx) 12/02/2024 Travel 11/25/2024 11:39 AM EDT - 11/25/2024 11:59 PM EDT Hospital Encounter [facility] Imaging [address] [place] [address] April Thompson MD Aortic aneurysm without rupture, unspecified portion of aorta (CMS-HCC); Abdominal aortic aneurysm (AAA) without rupture, unspecified part (CMS-HCC) Discharge Disposition: Home 11/25/2024 10:30 AM EDT Office Visit [facility] Vascular Surgery [address] [place] [phone] April Thompson MD Abdominal aortic aneurysm (AAA) without rupture, unspecified part (CMS-HCC) (Primary Dx); Aortic aneurysm without rupture, unspecified portion of aorta (CMS-HCC) 11/25/2024 Travel 11/22/2024 Orders Only [facility] Internal Medicine - Family Medicine [address] [place] [address] Alejandrina Felipe CMA Abdominal aortic aneurysm (AAA) without rupture, unspecified part ([facility]) 11/19/2024 Orders Only [facility] Internal Medicine - Family Medicine [address] [place] [address] Fátima Carver, ACT TUTOR-DOOR PANELER Aortic aneurysm without rupture, unspecified portion of aorta ([facility] (Primary Dx) 11/19/2024 Telephone [facility] [address] [place] [phone] Delphine Louis, A ultra sound result 11/15/2024 8:30 AM EDT Office Visit [facility] - Family Medicine [address] [place] [address] Davion Stephenson DO Abdominal aortic aneurysm (AAA) without rupture, unspecified part ([facility] (Primary Dx); Cigarette smoker; Mixed hyperlipidemia 11/15/2024 [...] 0.6 oz pur e alcohol) [facility] Utilities Answer Date Recorded In the past 12 months has [employer] electric, gas, oil, or water company threatened [...] week 07/08/2024 How often do you attend worship or confucianism serv ices? Never 07/08/2024 Do you belong to any clubs o r organizations such as worship groups, unions, fraternal or athletic groups, or [...] Answer Date Recorded Total Score 0 02/03/2025 [facility] of Occupat ional Health - Occupational Stress [...] Recorded Do you need help finding a [facility] career [facility] and/or a training [...] Medicine - Family Medicine [address] [place] [address] Davion Stephenson DO [address], [facility] [place] [address] 07/11/2025 10:30 AM EST Office Visit [facility] - Family Medicine [address] [place] [address] Davion Stephenson, DO [address] [facility], [place] [address] Health Maintenance Due Date Last Done Comments [...] EDT) us Not In System Ref Prov MD IMAGING Final Res ult MANUALLY TRANSCRIBED RESULTS [...] Resu lt from Last 3 Months Insurance [id number] Care Teams House Worker General Relationship Specialty Start Date End Date Davion Stephenson DO [address] [facility], [place] [address] PCP - General Family Medicine 07/10/22
--- OUTSIDE RECORDS SUMMARY | 2025-02-14 09:17 | XMS_ITS | Encounter Summary ---
Author Organization [facility] Address [address] [place] [address] Care Team Providers Care Obstetrics Scrub Nurse Name Role Phone Davion Stephenson DO Primary Care Provider + [phone] Encounter Details Date Type Department Care Team (Late st Contact Info) Description 02/07/2025 Orders Only [facility] Part of [place] [id number] Aure Ngo Social History Tobacco Use Types Packs/Day Years [...] any time in the past 12 m [facility], were you homeless or living in a snf (including now)? No 01/22/2025 Food Insecurity Answer [...] Description 03/09/2025 2:45 PM EDT Office Visit [facility] Part of [address] [address] Darryl Hendrix MD [address] [place] [address] F/U hospital stay low platelets documented as of this encounter Visit Diagnoses Diagnosis Thrombocytopenia Thrombocytopenia, unspecified documented in this encounter Care Teams Obstetrics Scrub Nurse Relationship Specialty Start Date End Date Davion Stephenson DO [address] [place] [address] PCP - General Family Medicine 01/22/25 documented as of this encounter
--- OUTSIDE RECORDS SUMMARY | 2025-02-14 09:17 | XMS_ITS | Clinical Summary ---
Author Organization [facility] Address [address] [place] [address] Care Team Providers Care Vessel Captain Name Role Phone Dvaion Stephenson DO Primary Care Provider [phone] Allergies No known active allergies Medications aspirin [...] Department Care Team Description 12/21/2024 Telephone [facility] [address] [place] [address] Mary Rangel MA 11/29/2024 11:40 AM EDT Office Visit [facility] [address] [place] [address] Vasquez Louis MD Pre-op evaluation [...] of2 resultswithin the time period is included. Vasquez Owusu MD - 11/29/2024 1:01 PM EDT Normal sinus rhythm, heart rate 69 bpm, normal EKG Vasquez Louis MD ECG ORDERABLES Final Result from Last 3 Months Insurance [employer] [address] [place] [address] Care Teams Vessel Captain Relationship Specialty Start Date End Date Davion Stephenson DO [address], [place] [address] PCP - General Family Medicine 11/29/24
[2025-02-14 09:34] LABS: Basophils Percent Auto 0.7 % (0.2-2.0); Eosinophils Absolute Auto 0.1 10^3/uL (0.0-0.7); Eosinophils Percent Auto 0.9 % (0.9-7.0); Hematocrit 40.3 % (42.0-54.0); Hemoglobin 13.1 g/dL (14.0-18.0); Immature Granulocytes Abs Auto 0.01 10^3/uL (0.00-0.03); Immature Granulocytes Pct Auto 0.2 % (0.0-0.5); Lymphocytes Percent Auto 18.3 % (20.5-60.0); Mean Corpuscular HGB Conc 32.5 g/dL (29.9-35.2); Mean Corpuscular Hemoglobin 28.9 pg (25.9-34.0); Mean Corpuscular Volume 88.8 fL (80.0-94.0); Mean Platelet Volume 9.4 fL (9.5-13.5); Monocytes Absolute Auto 0.6 10^3/uL (0.3-0.8); Monocytes Percent Auto 9.8 % (1.7-12.0); Neutrophils Percent Auto 70.1 % (43.0-75.0); Platelet Count 144 10^3/uL (150-450); Red Blood Count 4.54 10^6/uL (4.70-6.10); Red Cell Distribution Width 14.8 % (11.0-15.0); White Blood Count 5.6 10^3/uL (4.0-11.0)
== END 2025-02-14 09:15 | disposition home or self-care (01) ==
LOC: LAB 09:15
PROVIDERS: PCP Family Medicine
DX: D69.6 Thrombocytopenia, unspecified (principal)
CPT/HCPCS: 36415; 85025

== ENCOUNTER 2025-03-07 08:38 | Outpatient (RCR) | payer OTHER, SELFPAY ==
[2025-03-07 09:11] LABS: Hematocrit 40.4 % (42.0-54.0); Hemoglobin 12.7 g/dL (14.0-18.0); Immature Granulocytes Abs Auto 0.03 10^3/uL (0.00-0.03); Immature Granulocytes Pct Auto 0.5 % (0.0-0.5); Lymphocytes Absolute Auto 1.4 10^3/uL (1.2-3.8); Mean Corpuscular HGB Conc 31.4 g/dL (29.9-35.2); Mean Corpuscular Hemoglobin 28.0 pg (25.9-34.0); Mean Corpuscular Volume 89.0 fL (80.0-94.0); Platelet Count 160 10^3/uL (150-450); Red Blood Count 4.54 10^6/uL (4.70-6.10); White Blood Count 5.6 10^3/uL (4.0-11.0)
== END 2025-03-31 17:02 | disposition home or self-care (01) ==
LOC: LAB 08:38
PROVIDERS: PCP Family Medicine
DX: Z51.81 Encounter for therapeutic drug level monitoring (principal); Z79.01 Long term (current) use of anticoagulants; D69.6 Thrombocytopenia, unspecified
CPT/HCPCS: 36415; 85025

== ENCOUNTER 2025-04-04 08:40 | Outpatient (OUT) | payer OTHER, SELFPAY ==
[2025-04-04 09:12] LABS: Hematocrit 40.2 % (42.0-54.0); Hemoglobin 13.1 g/dL (14.0-18.0); Immature Granulocytes Abs Auto 0.02 10^3/uL (0.00-0.03); Immature Granulocytes Pct Auto 0.4 % (0.0-0.5); Lymphocytes Absolute Auto 1.5 10^3/uL (1.2-3.8); Mean Corpuscular HGB Conc 32.6 g/dL (29.9-35.2); Mean Corpuscular Hemoglobin 28.1 pg (25.9-34.0); Mean Corpuscular Volume 86.1 fL (80.0-94.0); Platelet Count 150 10^3/uL (150-450); Red Blood Count 4.67 10^6/uL (4.70-6.10); White Blood Count 5.6 10^3/uL (4.0-11.0)
== END 2025-04-04 08:41 | disposition home or self-care (01) ==
LOC: LAB 08:43
PROVIDERS: PCP Family Medicine
DX: D69.6 Thrombocytopenia, unspecified (principal); Z98.890 Other specified postprocedural states; Z86.79 Personal history of other diseases of the circulatory system; A04.8 Other specified bacterial intestinal infections; R21 Rash and other nonspecific skin eruption
CPT/HCPCS: 36415; 85025

== ENCOUNTER 2025-05-03 08:07 | Outpatient (OUT) | payer OTHER, SELFPAY ==
--- OUTSIDE RECORDS SUMMARY | 2025-05-03 08:20 | XMS_ITS | CCD ---
Author Organization [facility] CliniSypr Care Team Providers Care Second Cutter Name Role Phone REN TRAE KASANDRA Admitting Unavailable ROSS, TRAE KASANDRA Attending Unavailable ROSS, TRAE KASANDRA Primary Care Unavailable ROSS, TRAE KASANDRA Consulting Unavailable ROSS, TRAE KASANDRA Admitting Unavailable ROSS, TRAE KASANDRA Attending Unavailable ROSS, TRAE KASANDRA Primary Care Unavailable EUGENIO, DR PAK Admitting Unavailable EUGENIO, DR PAK Attending Unavailable ROSS, TRAE KASANDRA Primary Care Unavailable BECKER, DR PAK Consulting Unavailable SANDRA, DR VESTA Harrison Admitting Unavailable SANDRA, DR VESTA Harrison Attending Unavailable ROSS, TRAE KASANDRA Primary Care Unavailable CARL, DR DORCAS Huizar Consulting Unavailable SANDRA, DR VESTA Harrison Consulting Unavailable EUGENIO, DR PAK Admitting Unavailable BECKER, DR PAK Attending Unavailable KUNS, DR VESTA Harrison Primary Care Unavailable EUGENIO, DR PAK Consulting Unavailable VESTA FLORES Primary Care Physician DAVION ODOM Referring Unavailable DAVION ODOM Primary Care Unavailable VESTA FLORES Referring Unavailable DAVION ODOM Primary Care Unavailable Davion Odom DO Primary Care Provider APRIL THOMPSON Attending Unavailable APRIL THOMPSON F Referring Unavailable DAVION ODOM Primary Care Unavailable Davion Odom DO Primary Care Provider AIMEE LOUIS Attending Unavailable DAVION ODOM Primary Care Physician Gris Thompsonamed FBeckie Admitting Unavailable Jay, Mohamed FBeckie Attending Unavailable Jay, Mohamed FBeckie Referring Unavailable Jay, Mohamed F. Referring Unavailable Jay, Mohamed FBeckie Admitting Unavailable Jay, Mohrhett FBeckie Attending Unavailable Davion Odom DO Primary Care Provider [phone] DAVION ODOM Attending Unavailable DAVION ODOM Referring Unavailable FURLONG, DAVION G Primary Care Unavailable FURLONG, DAVION G Attending Unavailable FURLONG, DAVION G Referring Unavailable FURLONG, DAVION G Primary Care Unavailable JAY, MOHAMED F Attending Unavailable FURLONG, DAVION G Referring Unavailable FURLONG, DAVION G Primary Care Unavailable JAY, MOHAMED F Attending Unavailable FURLONG, DAVION G Referring Unavailable FURLONG, DAVION G Primary Care Unavailable JAY, MOHAMED F Attending Unavailable FURLONG, DAVION G Referring Unavailable FURLONG, DAVION G Primary Care Unavailable FURLONG, DAVION G Attending Unavailable FURLONG, DAVION G Referring Unavailable FURLONG, DAVION G Primary Care Unavailable FURLONG, DAVION G Attending Unavailable FURLONG, DAVION G Referring Unavailable FURLONG, DAVION G Primary Care Unavailable Jay, Mohamed F. Referring Unavailable Jay, Mohamed F. Attending Unavailable Jay, Mohamed F. Admitting Unavailable NAYA, MATTHEW Admitting Unavailable HAYKRISTY Referring Unavailable AYOUBI, GRISAMED Consulting Unavailable FURLONG, DAVION G Primary Care Unavailable PAYTON, JOSEBEDIN Attending Unavailable Jay, Mohamed F. Admitting Unavailable NONE, XXXX Referring Unavailable Jay, Mohamed F. Attending Unavailable Jay, Mohamed F. Attending Unavailable Jay, Mohamed F. Referring Unavailable Jay, Mohamed F. Admitting Unavailable Jay, Mohamed F. Attending Unavailable Jay, Mohamed F. Referring Unavailable Jay, Mohamed F. Admitting Unavailable Mellisa BECKER Attending Unavailable Mellisa BECKER Attending Unavailable Allergies Allergy Classification Reported Allergen(s) Allergy Type Date of Onset Reaction(s) Facility (1 source) heparin Drug Allergy 01-24-2025 [facility] Medications Current Medications Medication Drug Class(es) Dates Sig (Normalized) Sig (Original) Acetaminophen (1 source) Start: 01-22-2025 acetaminophen (TYLENOL) tablet 650 mg aspirin 81 mg oral tablet (20 sources) Platelet Aggregation Inhibitor, Nonsteroidal Anti-inflammatory Drug Start: 06-13-2023 End: 02-03-2025 take 1 tablet by mouth once daily Aspirin Low Dose 81 mg oral tablet 1 tab, Oral, Daily, Refills(s) 0 Start Date: 12/27/24 Status: Ordered Repeat number: 1 Start: 06-13-2023 take 1 mg by mouth e very twenty-four hours aspirin 81 mg oral capsule mg cap(s), Oral, q24hr, Refills(s) 0 Start Date: 06/13/23 Status: Ordered Repeat number: 1 bismuth subsalicylate 17.5 mg/ml oral suspension (5 sources) Bismuth Start: 01-26-2025 End: 02-09-2025 take 30 mL by mouth four times daily bismuth subsalicylate (PEPTO BISMOL) 262 MG/15ML suspension Take 30 mLs by mouth 4 times daily for 52 doses 01/27/2025 01/27/2025 Discontinued take 30 mL by mouth every six hours as needed bismuth subsalicylate (PEPTO BISMOL) 262 mg/15 mL suspension Take 30 mL by mouth every 6 (six) hours as needed for indigestion. Active famotidine 20 mg oral tablet (1 source) Histamine-2 Receptor Antagonist Start: 06-03-2023 End: 08-22-2023 take 1 tablet by mouth once daily at bedtime famotidine (PEPCID) 20 mg tablet TAKE 1 TABLET BY MOUTH ONCE DAILY AT BEDTIME 30 tablet 2 06/03/2023 08/22/2023 Discontinued (Therapy completed) 50 ml magnesium sulfate 40 mg/ml injection (1 source) Start: 01-22-2025 2,000 mg, IntraVENous, at 25 mL/hr, Administer [...] Patients with CrCl less than 30mL/min metroNIDAZOLE 500 mg oral tablet (5 sources) Nitroimidazole Antimicrobial Start: 01-26-2025 End: 02-09-2025 take 1 tablet by mouth at bedtime metroNIDAZOLE (FLAGYL) 500 MG tablet Take 1 tablet by mouth in the morning, at noon, in the evening, and at bedtime for 52 doses 52 tablet 01/27/2025 01/27/2025 Discontinued ondansetron (ZOFRAN-ODT) disintegrating tablet 4 mg (1 source) Start: 01-22-2025 ondansetron (ZOFRAN-ODT) disintegrating tablet 4 mg pantoprazole 40 mg delayed release oral tablet (6 sources) Proton Pump Inhibitor Start: 01-26-2025 End: 02-10-2025 take 1 tablet by mouth twice daily before mealtime pantoprazole (PROTONIX) 40 MG tablet Take 1 tablet by mouth 2 times daily (before meals) for 14 days 28 tablet 01/27/2025 01/27/2025 Discontinued Start: 01-23-2025 End: 01-26-2025 take 40 mg by mouth once daily before breakfast 40 mg, Oral, DAILY BEFORE BREAKFAST, First dose on 01/23/25 at 0830, Until Discontinued, Do not crush or break. polyethylene glycol [id number] [id number] mg powder for oral solution (5 sources) Osmotic Laxative Start: 01-22-2025 End: 02-26-2025 take 1 dose by mouth once daily as needed for constipation polyethylene glycol (GLYCOLAX) 17 g packet Take 1 packet by mouth daily as needed for Constipation 30 packet 01/27/2025 01/27/2025 Discontinued Potassium Chloride (1 source) Start: 01-22-2025 End: 02-06-2025 potassium chloride 20 mEq/50 mL IVPB (Central Line) predniSONE 20 mg oral tablet (5 sources) Start: 01-27-2025 End: 02-03-2025 take 1 tablet by mouth once daily predniSONE (DELTASONE) 20 MG tablet Take 1 tablet by mouth daily for 7 doses 7 tablet 01/27/2025 01/27/2025 Discontinued take 1 tablet by mouth in the mo rning predniSONE (DELTASONE) 10 mg tablet Take 1 tablet (10 mg total) by mouth in the morning. Active rosuvastatin calcium 10 mg oral tablet (20 sources) HMG-CoA Reductase Inhibitor Start: 01-24-2025 End: 01-31-2025 10 mg, Oral, NIGHTLY, 7 doses, First dose on 01/24/25 at 2100, Last dose on 01/30/25 at 2100 Start: 06-14-2022 End: 02-26-2025 take 1 tablet by mouth once daily rosuvastatin 10 mg Tab 10 mg = 1 tab(s), Oral, Daily, Refills(s) 0 Start Date: 06/14/22 Status: Ordered Repeat number: 1 tetracycline hydrochloride 500 mg oral capsule (3 sources) Tetracycline-class Antimicrobial Start: 01-27-2025 End: 02-09-2025 take 1 capsule by mouth four times daily tetracycline (ACHROMYCIN;SUMYCIN) 500 MG capsule Take 1 capsule by mouth 4 times daily for 52 doses 52 capsule 01/27/2025 01/27/2025 Discontinued Start: 01-26-2025 End: 02-09-2025 500 mg, Oral, 4 TIMES DAILY, 56 [...] dairy, calcium, iron, magnesium, aluminum or zinc. Completed/Discontinued Medications Medication Drug Class(es) Dates Sig (Normalized) Sig (Original) albuterol 0.83 mg/ml inhalation solution (1 source) beta2-Adrenergic Agonist Start: 01-22-2025 2.5 mg, Nebulization, EVERY 4 HOURS PRN, Starting on 01/22/25 at 0522, Until Discontinued, Wheezing, Shortness of Breath, Initiate RT Bronchodilator Protocol: Yes - Inpatient Protocol dexAMETHasone (DECADRON) 40 mg in sodium chloride 0.9 % 50 mL IVPB (1 source) Start: 01-22-2025 End: 01-25-2025 40 mg, IntraVENous, at 200 mL/hr, Administer over 15 Minutes, EVERY 24 HOURS, First dose on Fri01/22/25 at 0730, For 4 days docusate sodium 50 mg / sennosides, retirement 8.6 mg oral tablet (1 source) Start: 01-23-2025 End: 01-25-2025 2 tablet, Oral, DAILY, 3 doses, First dose on Fri01/23/25 at 1330, Last dose on Fri01/25/25 at 0900 Immune Globulin (Human) 66,000 mg in dextrose 5 % 1,320 mL Infusion (1 source) Start: 01-22-2025 End: 01-23-2025 66,000 mg (rounded from 66 g = 1,000 mg/kg 66 kg), IntraVENous, ONCE, On 01/22/25 at 1930, For 1 dose, Immune Globulin 5 % 1 mg/kg/minute (0.6 mL/kg/hour); Maintenance: Increase gradually (if tolerated) to a maximum of 8 mg/kg/minute (4.8 mL/kg/hour). 10 ml immunoglobulin g, human 100 mg/ml injection (2 sources) Human Immunoglobulin G Start: 01-25-2025 End: 01-25-2025 65,000 mg (rounded from 66,000 mg = 1,000 mg/kg 66 kg), IntraVENous, ONCE, 1 dose, On Fri01/25/25 at 1845, Initial (first 30 minutes): 1 mg/kg/minute (0.6 mL/kg/hour); Maintenance: Increase gradually (if tolerated) to a maximum of 8 mg/kg/minute (4.8 mL/kg/hour). Start: 01-23-2025 End: 01-24-2025 60 g (1 g/kg 60 kg Order-spe cific weight), IntraVENous, ONCE, 1 dose, On Fri01/23/25 at 1700, Initial (first 30 minutes): 1 mg/kg/minute (0.6 mL/kg/hour); Maintenance: Increase gradually (if tolerated) to a maximum of 8 mg/kg/minute (4.8 mL/kg/hour). iopamidol (ISOVUE-370) 76 % injection 75 mL (1 source) Start: 01-22-2025 End: 01-22-2025 take 1 dose intravenously once 75 mL, IntraVENous, IMG ONCE PRN, 1 dose, Starting on 01/22/25 at 1953, Until 01/22/25 at 1955, Other labetalol hydrochloride 5 mg/ml injectable solution (1 source) beta-Adrenergi c Zak Start: 01-22-2025 10 mg, IntraVENous, EVERY 4 HOURS PRN, Starting on 01/22/25 at 0507, Until Discontinued, High Blood Pressure, For SBP >150 mmHg. Hold if HR lactulose 667 mg/ml oral solution (1 source) Osmotic Laxative Start: 01-24-2025 End: 01-24-2025 take 1 dose by mouth once 20 g, Oral, Once, 1 dose, On 01/24/25 at 1315 pantoprazole (PROTONIX) 40 mg in sodium chloride (PF) 0.9 % 10 mL injection (1 source) Start: 01-22-2025 End: 01-23-2025 40 mg, IntraVENous, DAILY, First dose on 01/22/25 at 0900, Reconstitute with 10 mL 0.9 % sodium chloride and administer over at least 2 minutes. 5 ml sodium chloride 9 mg/ml injection (3 sources) Start: 01-22-2025 5-40 mL, IntraVENous, EVERY 12 HOURS SCHEDULED [...] Midline or Central Line = 20 mL/lumen Start: 01-22-2025 IntraVENous, a t 5-250 mL/hr, PRN, if patient receiving piggyback [...] 100 mL/hr into rate field of order. Start: 01-22-2025 5-40 mL, Intra VENous, PRN, Starting on 01/22/25 at 0347, Until Discontinued, Line Care, After every IV line use, [...] Midline or Central Line = 20 mL/lumen Problems Active Problems Problem Classification Problem Date Documented Date Episodic/Chronic Aortic; peripheral; and visceral artery aneurysms (20 sources) Abdominal aortic aneurysm, without rupture; Translations: [Abdominal aortic aneurysm] Onset: 02-01-2022 Chronic Coagulation and hemorrhagic disorders (5 sources) Thrombocytopenic disorder; Translations: [Thrombocytopenia, unspecified] Onset: 01-22-2025 01-27-2025 Chronic Disorders of lipid metabolism (20 sources) Hyperlipidemia; Translations: [Mixed hyperlipidemia] Onset: 03-18-2022 10-10-2021 Chronic Hyperplasia of prostate (20 sources) Benign prostatic hyperplasia with lower urinary tract symptoms; Translations: [Benign prostatic hypertrophy with outflow obstruction] Onset: 06-10-2022 Chronic Intestinal infection (7 sources) Infection caused by Helicobacter pylori; Translations: [Other specified bacterial intestinal infections] Onset: 01-26-2025 01-27-2025 Episodic Mood disorders (20 sources) Depressive disorder; Translations: [Depression] Onset: 08-09-2022 Resolved: 02-14-2023 10-10-2021 Chronic Other circulatory disease (1 source) Elevated blood pressure; Translations: [Elevated blood-pressure reading, without diagnosis of hypertension] 01-13-2025 Episodic Other circulatory disease (1 source) Personal history of other diseases of the circulatory system; Translations: [Personal history of other diseases of the circulatory system] Onset: 01-23-2025 Episodic Other nutritional; endocrine; and metabolic disorders (6 sources) Overweight in adulthood with body mass index of 25 or more but less than 30 08-01-2023 Episodic Other screening for suspected conditions (not mental disorders or infectious disease) (20 sources) Elevated prostate specific antigen [PSA]; Translations: [Encounter for screening for malignant neoplasm of prostate] Onset: 08-11-2021 Episodic Other skin disorders (3 sources) Eruption; Translations: [Rash and other nonspecific skin eruption] Onset: 01-22-2025 01-27-2025 Episodic Other skin disorders (1 source) Rash and other nonspecific skin eruption; Translations: [Rash and other nonspecific skin eruption] Onset: 01-22-2025 Episodic Residual codes; unclassified (3 sources) History of repair of aneurysm of abdominal aorta; Translations: [Other specified postprocedural states] Onset: 01-23-2025 01-27-2025 Episodic Residual codes; unclassified (1 source) Other specified postprocedural states; Translations: [Other specified postprocedural states] Onset: 01-23-2025 Episodic Screening and history of mental health and substance abuse codes (2 sources) Ex-cigarette smoker; Translations: [Personal history of nicotine dependence] Onset: 01-13-2025 01-13-2025 Episodic Substance-related disorders (20 sources) Smoker; Translations: [Nicotine dependence] Onset: 03-18-2022 06-14-2022 Chronic Comment on above: Added secondary to d ocumentation in Social History. Unclassified (6 sources) Patient encounter status 08-01-2023 Unclassified (2 sources) Abdominal aortic aneurysm, without rupture, unspecified; Translations: [Abdominal aortic aneurysm, without rupture, unspecified] Onset: 08-09-2022 Unclassified (1 source) Infrarenal abdominal aortic aneurysm, without rupture; Translations: [Infrarenal abdominal aortic aneurysm, without rupture] Onset: 11-29-2024 Unclassified (1 source) discussion about anurysm in bladder Onset: 11-15-2024 Unclassified (1 source) I71.43; Translations: [I71.43] Onset: 01-03-2025 Past or Other Problems Problem Classification Problem Date Documented Da te Episodic/Chronic Mood disorders (13 sources) Mood disorders Onset: 08-22-2023 Resolved: 02-03-2025 08-22-2023 Residual codes; unclassified (1 source) Tobacco user; Translations: [Tobacco use] 08-22-2023 Episodic Unclassified (1 source) Infrarenal abdominal aortic aneurysm, without rupture; Translations: [Infrarenal abdominal aortic aneurysm, without rupture] Onset: 11-29-2024 Results Test Name Value Interpretation Reference Range Facility [facility]Cl inic Noteon 03-28-2025 [facility]Clinic Note [facility]Clinic Note Chief Complaint Inpatient follow up. History [...] 5y-11y) vac - Not Given Patient Refuses Normal [facility] Comment on above: Result Comment: Elec tronically Signed By: Jay DEVINE, April Barboza\.br\Date and Time Signed: 03/28/25 09:30 EDT CTA Abd Aorto-bilat/ iliofem oral runoffon 02-08-2025 CTA Abd Aorto-bilat/ iliofemoral runoff Exam Date/Time: 02/08/2025 15:29 EDT Reason for [...] enhancing cysts are present within an otherwise unremarkable-appearin g liver. The nearly decompressed gallbladder, spleen, pancreas, adrenal glands, kidneys, unopacified bowel loops, appendix, urinary bladder and visualized musculoskeletal structures are unremarkable. Mild probable atelectasis or scarring of the visualized left lung base. Ordering Provider: April Thompson FINAL REPORT Dictated: 02/08/2025 4:12 pm Roger Calle MD Signed (Electronic Signature): 02/08/2025 4:12 pm Signed by: Roger Calle MD Transcribed by: MARGIE Technologist: AMARI Moralez [facility] Federico-Herring Panelon 025 EBV Early(D) Ab,IgG >150.0 High 0.0-10.9 [facility] Comment on above: Result Comment: (NOT E) INTERPRETIVE INFORMATION: Federico-Herring Virus Antibody to Early D Antigen (EA-D), IgG 8.9 U/mL or less........Not Detected 9.0-10.9 U/mL...........Indeterminate - Repeat testing in 10-14 days may be helpful. 11.0 U/mL or greater....Detected Performed By: [facility] [address] [place] [id number] [employer] Program Coordinator: Mariusz Melo MD, PhD CLIA Number: [id number] Performed By: #### F DP, CDP, BMPX, PRCAL, HIVCMB, HP4AB, ANAX, ANRFX, DIME, FIB #### [facility] [address] [place] [id number] Male Infertility Specialist: Mo Feliciano MD EBV Nuclear Ab,IgG >600.0 High 0.0-21.9 [facility] Comment on above: Result Comment: (NOT E) INTERPRETIVE INFORMATION: Federico-Herring Virus Antibody to Nuclear Antigen, IgG 17.9 U/mL or less.......Not Detected 18.0-21.9 U/mL..........Indeterminate - Repeat testing in 10-14 days may be helpful. 22.0 U/mL or greater....Detected Performed By: #### F DP, CDP, BMPX, PRCAL, HIVCMB, HP4AB, ANAX, ANRFX, DIME, FIB #### [facility] [place] [address] Male Infertility Specialist: Mo Feliciano MD EBV Vir Caps Ab, IgG >750.0 High 0.0-21.9 [facility] Comment on above: Result Comment: (NOT E) INTERPRETIVE INFORMATION: Federico-Herring Virus Antibody to Viral Capsid Antigen, IgG 17.9 U/mL or less.......Not Detected 18.0-21.9 U/mL..........Indeterminate - Repeat testing in 10-14 days may be helpful. 22.0 U/mL or greater....Detected Performed By: #### F DP, CDP, BMPX, PRCAL, HIVCMB, HP4AB, ANAX, ANRFX, DIME, FIB #### [facility] [place] [address] Male Infertility Specialist: Mo Feliciano MD EBV Vir Caps Ab, IgM 26.5 U/mL Normal 0.0-43.9 [facility] Comment on above: Result Comment: (NOT E) INTERPRETIVE INFORMATION: Federico-Herring Virus Antibody to Viral Capsid Antigen, IgM 35.9 U/mL or less.......Not Detected 36.0-43.9 U/mL..........Indeterminate - Repeat testing in 10-14 days may be helpful. 44.0 U/mL or greater....Detected Performed By: #### F DP, CDP, BMPX, PRCAL, HIVCMB, HP4AB, ANAX, ANRFX, DIME, FIB #### [address] [phone] Male Infertility Specialist: Mo Feliciano MD ONOFRE Profileon 01-27-2025 Anti-Centromere 1.0 U/mL Normal <7.0 [facility] Comment on above: Result Comment: Reference Range: <7.0 Negative 7.0-10.0 Equivocal >10.0 Positive Performed By: #### G HLTEG #### [address] [id number] Male Infertility Specialist: Mo Feliciano MD Anti-Val-1 0.7 U/mL Normal <7.0 [facility] Comment on above: Result Comment: Reference Range: <7.0 Negative 7.0-10.0 Equivocal >10.0 Positive Performed By: #### G HLTEG #### [facility] [address] [place] [address] [phone] Male Infertility Specialist: Mo Feliciano MD Anti-RNP70 1.7 U/mL Normal <7.0 [facility] Comment on above: Result Comment: Reference Range: <7.0 Negative 7.0-10.0 Equivocal >10.0 Positive Performed By: #### G HLTEG #### [address] [id number] Male Infertility Specialist: Mo Feliciano MD Anti-Scleroderma 3.0 U/mL Normal <7.0 [facility] Comment on above: Result Comment: Reference Range: <7.0 Negative 7.0-10.0 Equivocal >10.0 Positive Performed By: #### G HLTEG #### [address] [address] Male Infertility Specialist: Mo Feliciano MD Anti-Sm 1.6 U/mL Normal <7.0 [facility] Comment on above: Result Comment: Reference Range: <7.0 Negative 7.0-10.0 Equivocal >10.0 Positive Performed By: #### G HLTEG #### [address] [address] Male Infertility Specialist: Mo Feliciano MD Anti-U1RNP 3.1 U/mL Normal <5.0 [facility] Comment on above: Result Comment: Reference Range: <5.0 Negative 5.0-10.0 Equivocal >10.0 Positive Performed By: #### G HLTEG #### [place] [address] Male Infertility Specialist: Mo Feliciano MD Ribosomal P Ab, IgG 7.9 U/mL High <7.0 [facility] Comment on above: Result Comment: Reference Range: <7.0 Negative 7.0-10.0 Equivocal >10.0 Positive Performed By: #### G HLTEG #### [address] [address] Male Infertility Specialist: Mo Feliciano MD RNA Polymerase III Ab,IgG 1.5 U/mL Normal <7.0 [facility] Comment on above: Result Comment: Reference Range: <7.0 Negative 7.0-10.0 Equivocal >10.0 Positive Performed By: #### G HLTEG #### [address] [address] Male Infertility Specialist: Mo Felicaino MD Ro 52 Ab, IgG 0.9 U/mL Normal <7.0 [facility] Comment on above: Result Comment: Reference Range: <7.0 Negative 7.0-10.0 Equivocal >10.0 Positive Performed By: #### G HLTEG #### [facility] [address] [place] [id number] Male Infertility Specialist: Mo Feliciano MD Ro 60 Ab, IgG 1.0 U/mL Normal <7.0 [facility] Comment on above: Result Comment: Reference Range: <7.0 Negative 7.0-10.0 Equivocal >10.0 Positive Performed By: #### G HLTEG #### [facility] [address] [place] [id number] Male Infertility Specialist: Mo Feliciano MD SSB 0.7 U/mL Normal <7.0 [facility] Comment on above: Result Comment: Reference Range: <7.0 Negative 7.0-10.0 Equivocal >10.0 Positive Performed By: #### G HLTEG #### [address] [address] Male Infertility Specialist: Mo Feliciano MD Basic Metab w/rfx MGon 01-27 Anion gap [Moles/Vol] 8 mmol/L Low 9-16 [facility] Comment on above: Performed By: #### F DP, CDP, BMPX, PRCAL, HIVCMB, HP4AB, ANAX, ANRFX, DIME, FIB #### [facility] [address] [place] [phone] Male Infertility Specialist: Mo Feliciano MD Calcium [Mass/Vol] 8.2 mg/dL Low 8.6-10.4 [facility] Comment on above: Performed By: #### F DP, CDP, BMPX, PRCAL, HIVCMB, HP4AB, ANAX, ANRFX, DIME, FIB #### [facility] [address] [place] [id number] Male Infertility Specialist: Mo Feliciano MD Chloride [Moles/Vol] 102 mmol/L Normal 98-107 [facility] Comment on above: Performed By: #### F DP, CDP, BMPX, PRCAL, HIVCMB, HP4AB, ANAX, ANRFX, DIME, FIB #### [facility] [address] [place] [id number] Male Infertility Specialist: Mo Feliciano MD CO2 [Moles/Vol] 21 mmol/L Normal 20-31 [facility] Comment on above: Performed By: #### F DP, CDP, BMPX, PRCAL, HIVCMB, HP4AB, ANAX, ANRFX, DIME, FIB #### [facility] [address] [place] [address] [phone] Male Infertility Specialist: Mo Feliciano MD Creatinine [Mass/Vol] 0.7 mg/dL Normal 0.7-1.2 [facility] Comment on above: Performed By: #### F DP, CDP, BMPX, PRCAL, HIVCMB, HP4AB, ANAX, ANRFX, DIME, FIB #### [facility] [address] [place] [phone] Male Infertility Specialist: Mo Feliciano MD Glucose [Mass/Vol] 81 mg/dL Normal 74-99 [facility] Comment on above: Performed By: #### F DP, CDP, BMPX, PRCAL, HIVCMB, HP4AB, ANAX, ANRFX, DIME, FIB #### [facility] [address] [place] [id number] Male Infertility Specialist: Mo Feliciano MD Potassium [Moles/Vol] 4.3 mmol/L Normal 3.7-5.3 [facility] Comment on above: Specimen hemolysis h as exceeded the interference as defined by Aidan. Value may be falsely increased. Suggest recollection if clinically indicated. Result Comment: Spec imen hemolysis has exceeded the interference as defined by Aidan. Value may be falsely increased. Suggest recollection if clinically indicated. Performed By: #### F DP, CDP, BMPX, PRCAL, HIVCMB, HP4AB, ANAX, ANRFX, DIME, FIB #### [facility] [facility] [employer] [address] [place] [address] [phone] Male Infertility Specialist: Mo Feliciano MD Sodium [Moles/Vol] 131 mmol/L Low 136-145 [facility] Comment on above: Performed By: #### F DP, CDP, BMPX, PRCAL, HIVCMB, HP4AB, ANAX, ANRFX, DIME, FIB #### [facility] [place], [place] [id number] Male Infertility Specialist: Mo Feliciano MD Urea nitrogen [Mass/Vol] 15 mg/dL Normal 8-23 [facility] Comment on above: Performed By: #### F DP, CDP, BMPX, PRCAL, HIVCMB, HP4AB, ANAX, ANRFX, DIME, FIB #### [address] [address] Male Infertility Specialist: Mo Feliciano MD GFR/1.73 sq M.predicted among non-blacks MDRD (S/P/Bld) [Vol rate/Area] mL/min/{1.73_m2} Normal >60 [facility] Comment on above: Result Comment: These results are not intended for use in patients <18 years of age. eGFR results are calculated without a race factor using the 202 CKD-EPI equation. Careful clinical correlation is recommended, particularly when comparing to results calculated using previous equations. The CKD-EPI equation is less accurate in patients with extremes of muscle mass, extra-renal metabolism of creatine, excessive creatine ingestion, or following therapy that affects renal tubular secretion. Performed By: #### F DP, CDP, BMPX, PRCAL, HIVCMB, HP4AB, ANAX, ANRFX, DIME, FIB #### [facility] [place], [place] [phone] Male Infertility Specialist: Mo Feliciano MD Basic Metabolic Panel w/ Ref jorje to MGon 01-27-2025 Josh Matthew Rate - PINF [facility] Comment on above: These results are not intended for use in patients <18 years of age. eGFR results are calculated without a race factor using the 202 CKD-EPI equation. Careful clinical correlation is recommended, particularly when comparing to results calculated using previous equations. The CKD-EPI equation is less accurate in patients with extremes of muscle mass, extra-renal metabolism of creatine, excessive creatine ingestion, or following therapy that affects renal tubular secretion. Interpretation and review of laboratory results Abnormal [facility] CBC with Auto Differentialon 01-27-2025 Basophils (Bld) [#/Vol] [facility] Basophils/100 WBC (Bld) 0 % 0 - 2 % [facility] Eosinophils (Bld) [#/Vol] 0.08 10*3/uL [facility] Eosinophils/100 WBC (Bld) 1 % 1 - 4 % [facility] Erythrocyte distribution width (RBC) [Ratio] 13.3 % 11.8 - 14.4 % [facility] Hematocrit (Bld) [Volume fraction] 33.2 % Low 40.7 - 50.3 % [facility] Hemoglobin (Bld) [Mass/Vol] 10.9 g/dL Low 13.0 - 17.0 g/dL [facility] Immature granulocytes (Bld) [#/Vol] 0.1 10*3/uL [facility] Immature granulocytes/100 WBC (Bld) 1 % High 0 [facility] Interpretation and review of laboratory results Abnormal [facility] Lymphocytes/100 WBC (Bld) 25 % 24 - 43 % [facility] Lymphocytes/100 WBC (Bld) 1.83 % [facility] MCH (RBC) [Entitic mass] 28.9 pg 25.2 - 33.5 pg [facility] MCHC (RBC) [Mass/Vol] 32.8 g/dL 28.4 - 34.8 g/dL [facility] MCV (RBC) [Entitic vol] 88.1 fL 82.6 - 102.9 fL [facility] Monocytes/100 WBC (Bld) 11 % 3 - 12 % [facility] Monocytes/100 WBC (Bld) 0.85 % [facility] Neutrophils/100 WBC (Bld) 61 % 36 - 65 % [facility] Nucleated RBC/100 WBC (Bld) [Ratio] 0 % 0.0 per 100 WBC [facility] Platelet, Fluorescence 29 Low [facility] Platelets (Bld) [#/Vol] See Reflexed IPF Result [facility] Platelets reticulated/100 platelets Auto (Bld) 14.5 % High 1.1 - 10.3 % [facility] RBC (Bld) [#/Vol] 3.77 10*6/uL Low 4.21 - 5.7 7 m/uL [facility] Segmented neutrophils/100 WBC (Bld) 4.59 % [facility] WBC other (Bld) [#/Vol] 7.5 [facility] CBC with Diffon 01-27-2025 Abs. Basophil <0.03 Normal 0.00-0.20 [facility] Comment on above: Performed By: #### F DP, CDP, BMPX, PRCAL, HIVCMB, HP4AB, ANAX, ANRFX, DIME, FIB #### [facility] [address] [place] [address] Male Infertility Specialist: Mo Feliciano MD Abs.Imm.Granulocyte 0.10 k/uL Normal 0.00-0.30 [facility] Comment on above: Performed By: #### F DP, CDP, BMPX, PRCAL, HIVCMB, HP4AB, ANAX, ANRFX, DIME, FIB #### [facility] [address] [place] [address] Male Infertility Specialist: Mo Feliciano MD Abs.Neutrophil (Seg) 4.59 k/uL Normal 1.50-8.10 [facility] Comment on above: Performed By: #### F DP, CDP, BMPX, PRCAL, HIVCMB, HP4AB, ANAX, ANRFX, DIME, FIB #### [employer] [address] [place] [address] Male Infertility Specialist: Mo Feliciano MD Basophils/100 WBC (Bld) 0 % Normal 0-2 [facility] Comment on above: Performed By: #### F DP, CDP, BMPX, PRCAL, HIVCMB, HP4AB, ANAX, ANRFX, DIME, FIB #### [address] [address] Male Infertility Specialist: Mo Feliciano MD Eosinophils (Bld) [#/Vol] 0.08 10*3/uL Normal 0.00-0.44 [facility] Comment on above: Performed By: #### F DP, CDP, BMPX, PRCAL, HIVCMB, HP4AB, ANAX, ANRFX, DIME, FIB #### [address] [phone] Male Infertility Specialist: Mo Feliciano MD Eosinophils/100 WBC (Bld) 1 % Normal 1-4 [facility] Comment on above: Performed By: #### F DP, CDP, BMPX, PRCAL, HIVCMB, HP4AB, ANAX, ANRFX, DIME, FIB #### [place] [address] Male Infertility Specialist: Mo Feliciano MD Immature granulocytes/100 WBC (Bld) 1 % High 0 [facility] Comment on above: Performed By: #### F DP, CDP, BMPX, PRCAL, HIVCMB, HP4AB, ANAX, ANRFX, DIME, FIB #### [place] [address] Male Infertility Specialist: Mo Feliciano MD Lymphocytes (Bld) [#/Vol] 1.83 10*3/uL Normal 1.10-3.70 [facility] Comment on above: Performed By: #### F DP, CDP, BMPX, PRCAL, HIVCMB, HP4AB, ANAX, ANRFX, DIME, FIB #### [address] [address] Male Infertility Specialist: Mo Feliciano MD Lymphocytes/100 WBC (Bld) 25 % Normal 24-43 [facility] Comment on above: Performed By: #### F DP, CDP, BMPX, PRCAL, HIVCMB, HP4AB, ANAX, ANRFX, DIME, FIB #### [address] [address] Male Infertility Specialist: Mo Feliciano MD Monocytes (Bld) [#/Vol] 0.85 10*3/uL Normal 0.10-1.20 [facility] Comment on above: Performed By: #### F DP, CDP, BMPX, PRCAL, HIVCMB, HP4AB, ANAX, ANRFX, DIME, FIB #### [address] [address] Male Infertility Specialist: Mo Feliciano MD Monocytes/100 WBC (Bld) 11 % Normal 3-12 [facility] Comment on above: Performed By: #### F DP, CDP, BMPX, PRCAL, HIVCMB, HP4AB, ANAX, ANRFX, DIME, FIB #### [address] [address] Male Infertility Specialist: Mo Feliciano MD Neutrophil (Seg) 61 % Normal 36-65 [facility] Comment on above: Performed By: #### F DP, CDP, BMPX, PRCAL, HIVCMB, HP4AB, ANAX, ANRFX, DIME, FIB #### [address] [address] Male Infertility Specialist: Mo Feliciano MD Platelet, Fluoresc. 29 k/uL Low 138-453 [facility] Comment on above: Performed By: #### F DP, CDP, BMPX, PRCAL, HIVCMB, HP4AB, ANAX, ANRFX, DIME, FIB #### [facility] [employer] [address] [place] [phone] Male Infertility Specialist: Mo Feliciano MD PLT, Immature Fract. 14.5 % High 1.1-10.3 [facility] Comment on above: Performed By: #### F DP, CDP, BMPX, PRCAL, HIVCMB, HP4AB, ANAX, ANRFX, DIME, FIB #### [facility] [employer] [address] [place] [address] [phone] Male Infertility Specialist: Mo Feliciano MD Erythrocyte distribution width (RBC) [Ratio] 13.3 % Normal 11.8-14.4 [facility] Comment on above: Performed By: #### F DP, CDP, BMPX, PRCAL, HIVCMB, HP4AB, ANAX, ANRFX, DIME, FIB #### [address] [phone] Male Infertility Specialist: Mo Feliciano MD Hematocrit (Bld) [Volume fraction] 33.2 % Low 40.7-50.3 [facility] Comment on above: Performed By: #### F DP, CDP, BMPX, PRCAL, HIVCMB, HP4AB, ANAX, ANRFX, DIME, FIB #### [facility] [employer] [address] [place] [address] [phone] Male Infertility Specialist: Mo Feliciano MD Hemoglobin (Bld) [Mass/Vol] 10.9 g/dL Low 13.0-17.0 [facility] Comment on above: Performed By: #### F DP, CDP, BMPX, PRCAL, HIVCMB, HP4AB, ANAX, ANRFX, DIME, FIB #### [facility] [employer] [address] [place] [address] [phone] Male Infertility Specialist: Mo Feliciano MD MCH (RBC) [Entitic mass] 28.9 pg Normal 25.2-33.5 [facility] Comment on above: Performed By: #### F DP, CDP, BMPX, PRCAL, HIVCMB, HP4AB, ANAX, ANRFX, DIME, FIB #### [facility] [employer] [address] [place] [address] [phone] Male Infertility Specialist: Mo Feliciano MD MCHC (RBC) [Mass/Vol] 32.8 g/dL Normal 28.4-34.8 [facility] Comment on above: Performed By: #### F DP, CDP, BMPX, PRCAL, HIVCMB, HP4AB, ANAX, ANRFX, DIME, FIB #### [facility] [employer] [address] [place] [id number] Male Infertility Specialist: Mo Feliciano MD MCV (RBC) [Entitic vol] 88.1 fL Normal 82.6-102.9 [facility] Comment on above: Performed By: #### F DP, CDP, BMPX, PRCAL, HIVCMB, HP4AB, ANAX, ANRFX, DIME, FIB #### [address] [address] Male Infertility Specialist: Mo Feliciano MD NRBC Automated 0.0 per 100 WBC Normal 0.0 [facility] Comment on above: Performed By: #### F DP, CDP, BMPX, PRCAL, HIVCMB, HP4AB, ANAX, ANRFX, DIME, FIB #### [facility] [employer] [address] [place] [id number] Male Infertility Specialist: Mo Feliciano MD Platelet Count See Reflexed IPF Result Normal 138-453 [facility] Comment on above: Performed By: #### F DP, CDP, BMPX, PRCAL, HIVCMB, HP4AB, ANAX, ANRFX, DIME, FIB #### [facility] [employer] [address] [place] [id number] Male Infertility Specialist: Mo Feliciano MD RBC (Bld) [#/Vol] 3.77 10*6/uL Low 4.21-5.77 [facility] Comment on above: Performed By: #### F DP, CDP, BMPX, PRCAL, HIVCMB, HP4AB, ANAX, ANRFX, DIME, FIB #### [address] [phone] Male Infertility Specialist: Mo Feliciano MD WBC (Bld) [#/Vol] 7.5 10*3/uL Normal 3.5-11.3 [facility] Comment on above: Performed By: #### F DP, CDP, BMPX, PRCAL, HIVCMB, HP4AB, ANAX, ANRFX, DIME, FIB #### [address] [phone] Male Infertility Specialist: Mo Feliciano MD Cult,Bloodon 01-27-2025 Cult,Blood Specimen Description .BLOOD Special Requests LH 10ML Culture NO GROWTH 5 DAYS Report Status FINAL 01/27/2025 [facility] Comment on above: Performed By: #### B MPX, CDP #### [place] [phone] Male Infertility Specialist: Mo Feliciano MD Cult,Blood Specimen Description .BLOOD Special Requests RH 9ML Culture NO GROWTH 5 DAYS Report Status FINAL 01/27/2025 Normal [facility] Comment on above: Performed By: #### B C #### [address] [phone] Male Infertility Specialist: Mo Feliciano MD Basic Metab w/rfx MGon 01-26 Anion gap [Moles/Vol] 8 mmol/L Low 9-16 [facility] Comment on above: Performed By: #### F DP, CDP, BMPX, PRCAL, HIVCMB, HP4AB, ANAX, ANRFX, DIME, FIB #### [address] [phone] Male Infertility Specialist: Mo Feliciano MD Calcium [Mass/Vol] 8.3 mg/dL Low 8.6-10.4 [facility] Comment on above: Performed By: #### F DP, CDP, BMPX, PRCAL, HIVCMB, HP4AB, ANAX, ANRFX, DIME, FIB #### [address] [phone] Male Infertility Specialist: Mo Feliciano MD Chloride [Moles/Vol] 103 mmol/L Normal 98-107 [facility] Comment on above: Performed By: #### F DP, CDP, BMPX, PRCAL, HIVCMB, HP4AB, ANAX, ANRFX, DIME, FIB #### [address] [phone] Male Infertility Specialist: Mo Feliciano MD CO2 [Moles/Vol] 21 mmol/L Normal 20-31 [facility] Comment on above: Performed By: #### F DP, CDP, BMPX, PRCAL, HIVCMB, HP4AB, ANAX, ANRFX, DIME, FIB #### [address] [phone] Male Infertility Specialist: Mo Feliciano MD Creatinine [Mass/Vol] 0.6 mg/dL Low 0.7-1.2 [facility] Comment on above: Performed By: #### F DP, CDP, BMPX, PRCAL, HIVCMB, HP4AB, ANAX, ANRFX, DIME, FIB #### [address] [phone] Male Infertility Specialist: Mo Feliciano MD GFR/1.73 sq M.predicted among non-blacks MDRD (S/P/Bld) [Vol rate/Area] mL/min/{1.73_m2} Normal >60 [facility] Comment on above: Result Comment: These results are not intended [...] following therapy that affects renal tubular secretion. Performed By: #### F DP, CDP, BMPX, PRCAL, HIVCMB, HP4AB, ANAX, ANRFX, DIME, FIB #### [address] [address] Male Infertility Specialist: Mo Feliciano MD Glucose [Mass/Vol] 95 mg/dL Normal 74-99 [facility] Comment on above: Performed By: #### F DP, CDP, BMPX, PRCAL, HIVCMB, HP4AB, ANAX, ANRFX, DIME, FIB #### [address] [phone] Male Infertility Specialist: Mo Feliciano MD Potassium [Moles/Vol] 4.0 mmol/L Normal 3.7-5.3 [facility] Comment on above: Performed By: #### F DP, CDP, BMPX, PRCAL, HIVCMB, HP4AB, ANAX, ANRFX, DIME, FIB #### [address] [phone] Male Infertility Specialist: Mo Feliciano MD Sodium [Moles/Vol] 132 mmol/L Low 136-145 [facility] Comment on above: Performed By: #### F DP, CDP, BMPX, PRCAL, HIVCMB, HP4AB, ANAX, ANRFX, DIME, FIB #### [address] [address] Male Infertility Specialist: Mo Feliciano MD Urea nitrogen [Mass/Vol] 17 mg/dL Normal 8-23 [facility] Comment on above: Performed By: #### F DP, CDP, BMPX, PRCAL, HIVCMB, HP4AB, ANAX, ANRFX, DIME, FIB #### [address] [phone] Male Infertility Specialist: Mo Feliciano MD Basic Metabolic Panel w/ Ref jorje to MGon 01-26-2025 Anion gap [Moles/Vol] 8 mmol/L Low 9 - 16 mmol/L [facility] Calcium [Mass/Vol] 8.3 mg/dL Low 8.6 - 10. 4 mg/dL [facility] Chloride [Moles/Vol] 103 mmol/L 98 - 10 7 mmol/L [facility] CO2 [Moles/Vol] 21 mmol/L 20 - 31 mmol/L [facility] Creatinine [Mass/Vol] 0.6 mg/dL Low 0.7 - 1.2 mg/dL [facility] EstJosh Rate - PINF [facility] Comment on above: These results are not intended for use [...] following therapy that affects renal tubular secretion. Glucose [Mass/Vol] 95 mg/dL 74 - 99 mg/dL [facility] Interpretation and review of laboratory results Abnormal [facility] Potassium [Moles/Vol] 4 mmol/L 3.7 - 5.3 mmol/L [facility] Sodium [Moles/Vol] 132 mmol/L Low 136 - 145 mmol/L [facility] Urea nitrogen [Mass/Vol] 17 mg/dL 8 - 23 mg/dL [facility] CBC with Auto Differentialon 01-26-2025 Basophils (Bld) [#/Vol] [facility] Basophils/100 WBC (Bld) 0 % 0 - 2 % [facility] Eosinophils (Bld) [#/Vol] [facility] Eosinophils/100 WBC (Bld) 0 % Low 1 - 4 % [facility] Erythrocyte distribution width (RBC) [Ratio] 13 % 11.8 - 14.4 % [facility] Hematocrit (Bld) [Volume fraction] 30.3 % Low 40.7 - 50.3 % [facility] Hemoglobin (Bld) [Mass/Vol] 9.8 g/dL Low 13.0 - 17.0 g/dL [facility] Immature granulocytes (Bld) [#/Vol] 0.09 10*3/uL [facility] Immature granulocytes/100 WBC (Bld) 1 % High 0 [facility] Interpretation and review of laboratory results Abnormal [facility] Lymphocytes/100 WBC (Bld) 20 % Low 24 - 43 % [facility] Lymphocytes/100 WBC (Bld) 1.98 % [facility] MCH (RBC) [Entitic mass] 28.7 pg 25.2 - 33.5 pg [facility] MCHC (RBC) [Mass/Vol] 32.3 g/dL 28.4 - 34.8 g/dL [facility] MCV (RBC) [Entitic vol] 88.6 fL 82.6 - 102.9 fL [facility] Monocytes/100 WBC (Bld) 9 % 3 - 12 % [facility] Monocytes/100 WBC (Bld) 0.84 % [facility] Neutrophils/100 WBC (Bld) 70 % High 36 - 65 % [facility] Nucleated RBC/100 WBC (Bld) [Ratio] 0.3 % High 0.0 per 100 WBC [facility] Platelet, Fluorescence 17 Critically low [facility] Platelets (Bld) [#/Vol] See Reflexed IPF Result [facility] Platelets reticulated/100 platelets Auto (Bld) 26.4 % High 1.1 - 10.3 % [facility] RBC (Bld) [#/Vol] 3.42 10*6/uL Low 4.21 - 5.7 7 m/uL [facility] Segmented neutrophils/100 WBC (Bld) 6.92 % [facility] WBC other (Bld) [#/Vol] 9.9 [facility] CBC with Diffon 01-26-2025 Platelet, Fluoresc. 17 k/uL Critically low 138-453 [facility] Comment on above: Performed By: #### F DP, CDP, BMPX, PRCAL, HIVCMB, HP4AB, ANAX, ANRFX, DIME, FIB #### [address] [address] Male Infertility Specialist: Mo Feliciano MD PLT, Immature Fract. 26.4 % High 1.1-10.3 [facility] Comment on above: Performed By: #### F DP, CDP, BMPX, PRCAL, HIVCMB, HP4AB, ANAX, ANRFX, DIME, FIB #### [place] [address] Male Infertility Specialist: Mo Feliciano MD Abs. Basophil <0.03 Normal 0.00-0.20 [facility] Comment on above: Performed By: #### F DP, CDP, BMPX, PRCAL, HIVCMB, HP4AB, ANAX, ANRFX, DIME, FIB #### [place] [address] Male Infertility Specialist: Mo Feliciano MD Abs. Eosinophil <0.03 Normal 0.00-0.44 [facility] Comment on above: Performed By: #### F DP, CDP, BMPX, PRCAL, HIVCMB, HP4AB, ANAX, ANRFX, DIME, FIB #### [place] [address] Male Infertility Specialist: Mo Feliciano MD Abs.Imm.Granulocyte 0.09 k/uL Normal 0.00-0.30 [facility] Comment on above: Performed By: #### F DP, CDP, BMPX, PRCAL, HIVCMB, HP4AB, ANAX, ANRFX, DIME, FIB #### [place] [address] Male Infertility Specialist: Mo Feliciano MD Abs.Neutrophil (Seg) 6.92 k/uL Normal 1.50-8.10 [facility] Comment on above: Performed By: #### F DP, CDP, BMPX, PRCAL, HIVCMB, HP4AB, ANAX, ANRFX, DIME, FIB #### [address] [address] Male Infertility Specialist: Mo Feliciano MD Basophils/100 WBC (Bld) 0 % Normal 0-2 [facility] Comment on above: Performed By: #### F DP, CDP, BMPX, PRCAL, HIVCMB, HP4AB, ANAX, ANRFX, DIME, FIB #### [address] [phone] Male Infertility Specialist: Mo Feliciano MD Eosinophils/100 WBC (Bld) 0 % Low 1-4 [facility] Comment on above: Performed By: #### F DP, CDP, BMPX, PRCAL, HIVCMB, HP4AB, ANAX, ANRFX, DIME, FIB #### [place] [phone] Male Infertility Specialist: Mo Feliciano MD Erythrocyte distribution width (RBC) [Ratio] 13.0 % Normal 11.8-14.4 [facility] Comment on above: Performed By: #### F DP, CDP, BMPX, PRCAL, HIVCMB, HP4AB, ANAX, ANRFX, DIME, FIB #### [address] [address] Male Infertility Specialist: Mo Feliciano MD Hematocrit (Bld) [Volume fraction] 30.3 % Low 40.7-50.3 [facility] Comment on above: Performed By: #### F DP, CDP, BMPX, PRCAL, HIVCMB, HP4AB, ANAX, ANRFX, DIME, FIB #### [address] [phone] Male Infertility Specialist: Mo Feliciano MD Hemoglobin (Bld) [Mass/Vol] 9.8 g/dL Low 13.0-17.0 [facility] Comment on above: Performed By: #### F DP, CDP, BMPX, PRCAL, HIVCMB, HP4AB, ANAX, ANRFX, DIME, FIB #### [address] [address] Male Infertility Specialist: Mo Feliciano MD Immature granulocytes/100 WBC (Bld) 1 % High 0 [facility] Comment on above: Performed By: #### F DP, CDP, BMPX, PRCAL, HIVCMB, HP4AB, ANAX, ANRFX, DIME, FIB #### [address] [phone] Male Infertility Specialist: Mo Feliciano MD Lymphocytes (Bld) [#/Vol] 1.98 10*3/uL Normal 1.10-3.70 [facility] Comment on above: Performed By: #### F DP, CDP, BMPX, PRCAL, HIVCMB, HP4AB, ANAX, ANRFX, DIME, FIB #### [address] [phone] Male Infertility Specialist: Mo Feliciano MD Lymphocytes/100 WBC (Bld) 20 % Low 24-43 [facility] Comment on above: Performed By: #### F DP, CDP, BMPX, PRCAL, HIVCMB, HP4AB, ANAX, ANRFX, DIME, FIB #### [address] [address] Male Infertility Specialist: Mo Feliciano MD MCH (RBC) [Entitic mass] 28.7 pg Normal 25.2-33.5 [facility] Comment on above: Performed By: #### F DP, CDP, BMPX, PRCAL, HIVCMB, HP4AB, ANAX, ANRFX, DIME, FIB #### [address] [phone] Male Infertility Specialist: Mo Feliciano MD MCHC (RBC) [Mass/Vol] 32.3 g/dL Normal 28.4-34.8 [facility] Comment on above: Performed By: #### F DP, CDP, BMPX, PRCAL, HIVCMB, HP4AB, ANAX, ANRFX, DIME, FIB #### [address] [address] Male Infertility Specialist: Mo Feliciano MD MCV (RBC) [Entitic vol] 88.6 fL Normal 82.6-102.9 [facility] Comment on above: Performed By: #### F DP, CDP, BMPX, PRCAL, HIVCMB, HP4AB, ANAX, ANRFX, DIME, FIB #### [place] [address] Male Infertility Specialist: Mo Feliciano MD Monocytes (Bld) [#/Vol] 0.84 10*3/uL Normal 0.10-1.20 [facility] Comment on above: Performed By: #### F DP, CDP, BMPX, PRCAL, HIVCMB, HP4AB, ANAX, ANRFX, DIME, FIB #### [place] [address] Male Infertility Specialist: Mo Feliciano MD Monocytes/100 WBC (Bld) 9 % Normal 3-12 [facility] Comment on above: Performed By: #### F DP, CDP, BMPX, PRCAL, HIVCMB, HP4AB, ANAX, ANRFX, DIME, FIB #### [place] [address] Male Infertility Specialist: Mo Feliciano MD Neutrophil (Seg) 70 % High 36-65 [facility] Comment on above: Performed By: #### F DP, CDP, BMPX, PRCAL, HIVCMB, HP4AB, ANAX, ANRFX, DIME, FIB #### [address] [phone] Male Infertility Specialist: Mo Feliciano MD NRBC Automated 0.3 per 100 WBC High 0.0 [facility] Comment on above: Performed By: #### F DP, CDP, BMPX, PRCAL, HIVCMB, HP4AB, ANAX, ANRFX, DIME, FIB #### [address] [phone] Male Infertility Specialist: Mo Feliciano MD Platelet Count See Reflexed IPF Result Normal 138-453 [facility] Comment on above: Performed By: #### F DP, CDP, BMPX, PRCAL, HIVCMB, HP4AB, ANAX, ANRFX, DIME, FIB #### [address] [phone] Male Infertility Specialist: Mo Feliciano MD RBC (Bld) [#/Vol] 3.42 10*6/uL Low 4.21-5.77 [facility] Comment on above: Performed By: #### F DP, CDP, BMPX, PRCAL, HIVCMB, HP4AB, ANAX, ANRFX, DIME, FIB #### [address] [phone] Male Infertility Specialist: Mo Feliciano MD WBC (Bld) [#/Vol] 9.9 10*3/uL Normal 3.5-11.3 [facility] Comment on above: Performed By: #### F DP, CDP, BMPX, PRCAL, HIVCMB, HP4AB, ANAX, ANRFX, DIME, FIB #### [facility] [employer] [address] [place] [address] [phone] Male Infertility Specialist: Mo Feliciano MD Electrophoresis Protein, Ser umon 01-26-2025 Albumin % 37 % Low 56 - 66 % [facility] [employer] Albumin [Mass/Vol] 3.1 g/dL Low 3.2 - 5.2 g/dL [facility] Alpha 1 globulin Elph [Mass/Vol] 0.4 g/dL 0.1 - 0.4 g/dL [facility] [facility] Alpha 1 globulin Elph [Mass/Vol] 5 % 3 - 5 % [facility] Alpha 2 % 11 % 7 - 12 % [facility] Alpha 2 globulin Elph [Mass/Vol] 1.0 g/dL High 0.5 - 0.9 g/dL [facility] Beta globulin Elph [Mass/Vol] 0.8 g/dL 0.7 - 1.4 g/dL [facility] Beta globulin Elph [Mass/Vol] 10 % 8 - 13 % [facility] Gamma Globulin % 37 % High 11 - 19 % [facility] Gamma globulin Elph [Mass/Vol] 3.1 g/dL High 0.5 - 1.5 g/dL [facility] Interpretation and review of laboratory results Abnormal [facility] Pathologist Cyto stain Nom (Cvx/Vag) [ID] ELECTRONICALLY SIGNED. PILLO ELY M.D. [facility] Protein [Mass/Vol] 8.3 g/dL 6.6 - 8.7 g/dL [facility] Protein Fractions [Interp] Albumin is decreased. May be observed with hepatic diseases, [facility] Comment on above: proteinuria, malnutr ition, acute phase response, and hemodilution. Elevated alpha 2 globulins. May be observed in a variety of conditions associated with acute tissue damage/necrosis and/or infection/inflammation, and also nephrotic disease. Polyclonal hypergammaglobulinemia is present. May be observed in a variety of conditions associated with chronic inflammation/infection, e.g. chronic hepatic disease, autoimmune diseases, granulomatous processes, etc. Immunotyping is negative for monoclonal immunoglobulin. Total Prot. Sum 8.4 g/dL High 6.3 - 8.2 g/dL [facility] Total Prot. Sum,% 100 % 98 - 102 % [facility] H. pylori Antigenon 01-27-20 H. pylori Antigen Specimen Description .FECES Direct Exam POSITIVE Report Status FINAL 01/26/2025 Abnormal [facility] Comment on above: Performed By: #### B MPX, CDP #### [facility] [employer] [address] [place] [address] Male Infertility Specialist: Mo Feliciano MD H. pylori antigenon 01-27-20 25 Interpretation and review of laboratory results Abnormal [facility] Microorganism or agent identified Nom (Unsp spec) Positive Abnormal [facility] Specimen Description .FECES [facility] Immunotyping, Serumon 2024 ITYP Interpretation Immunotyping is negative for monoclonal immunoglobulin. [facility] Pathologist review Dalton (Unsp spec) [Interp] ELECTRONICALLY SIGNED. PILLO ELY M.D. [facility] Immunotyping,Bloodon 025 ITYP - Interpret. Immunotyping is negative for monoclonal immunoglobulin. [facility] Comment on above: Performed By: #### F DP, CDP, BMPX, PRCAL, HIVCMB, HP4AB, ANAX, ANRFX, DIME, FIB #### [facility] [address] [place] [address] [phone] Male Infertility Specialist: Mo Feliciano MD PATHOLOGIST REVIEW ELECTRONICALLY SIGNED. PILLO ELY M.D. [facility] Comment on above: Performed By: #### F DP, CDP, BMPX, PRCAL, HIVCMB, HP4AB, ANAX, ANRFX, DIME, FIB #### [facility] [address] [place] [phone] Male Infertility Specialist: Mo Feliciano MD No Panel Informationon 01-26 [facility] Path Review, Smearon 025 Pathologist review Pathologist comment (Bld) [Interp] ELECTRONICALLY SIGNED. TAMANNA GONZALES M.D. [facility] Prot. Electroph, Blon 2024 Pathologist Review: ELECTRONICALLY SIGNED. PILLO ELY M.D. [facility] Comment on above: Performed By: #### F DP, CDP, BMPX, PRCAL, HIVCMB, HP4AB, ANAX, ANRFX, DIME, FIB #### [facility] [address] [place] [phone] Male Infertility Specialist: Mo Feliciano MD Prot. Elect-Interp Albumin is decreased . May be observed with hepatic diseases, Normal [facility] Comment on above: Result Comment: prot einuria, malnutrition, acute phase response, and hemodilution. Elevated alpha 2 globulins. May be observed in a variety of conditions associated with acute tissue damage/necrosis and/or infection/inflammation, and also nephrotic disease. Polyclonal hypergammaglobulinemia is present. May be observed in a variety of conditions associated with chronic inflammation/infection, e.g. chronic hepatic disease, autoimmune diseases, granulomatous processes, etc. Immunotyping is negative for monoclonal immunoglobulin. Performed By: #### F DP, CDP, BMPX, PRCAL, HIVCMB, HP4AB, ANAX, ANRFX, DIME, FIB #### [facility] [address] [place] [address] Male Infertility Specialist: Mo Feliciano MD Serotonin Rel Assayon 2024 Heparin Type Porcine Heparin [facility] SEROTONIN RELEASING ASSAY See Note [facility] Comment on above: (NOTE) This patient's specimen demonstrates a negative [...] regarding diagnosis of HIT is available at [employer]. INTERPRETIVE INFORMATION: KIM, Unfractionated Heparin This test was developed and its performance characteristics determined by [facility]. It has not been cleared or approved by the [place] Food and Drug Administration. This test was performed in a CLIA certified laboratory and is intended for clinical purposes. Performed By: [facility] [address] [place] [id number] [employer] Coordinator: Mariusz Melo MD, PhD CLIA Number: [id number] KIM Heparin Platelet Antibody Negative Negative [facility] KIM Porc High Dose 0 % [facility] KIM Porc Low Dose 3 % [facility] KIM Heparin Plt Ab Negative Normal Negative [facility] Comment on above: Performed By: #### F DP, CDP, BMPX, PRCAL, HIVCMB, HP4AB, ANAX, ANRFX, DIME, FIB #### [place] [id number] [place], [place] [phone] Male Infertility Specialist: Mo Feliciano MD [facility] Porc High Dose 0 % Normal [facility] Comment on above: Performed By: #### F DP, CDP, BMPX, PRCAL, HIVCMB, HP4AB, ANAX, ANRFX, DIME, FIB #### [address] [phone] Male Infertility Specialist: Mo Feliciano MD SRA Por Interp See Note Normal [facility] Comment on above: Result Comment: (NOT E) This patient's specimen demonstrates a negative result [...] regarding diagnosis of HIT is available at [employer]. INTERPRETIVE INFORMATION: KIM, Unfractionated Heparin This test was developed and its performance characteristics determined by [facility]. It has not been cleared or approved by the [place] Food and Drug Administration. This test was performed in a CLIA certified laboratory and is intended for clinical purposes. Performed By: [facility] [address] [place] [id number] [employer] Coordinator: Mariusz Melo MD, PhD CLIA Number: [id number] Performed By: #### F DP, CDP, BMPX, PRCAL, HIVCMB, HP4AB, ANAX, ANRFX, DIME, FIB #### [id number] [place], [place] [phone] Male Infertility Specialist: Mo Feliciano MD KIM Porc Low Dose 3 % Normal [facility] Comment on above: Performed By: #### F DP, CDP, BMPX, PRCAL, HIVCMB, HP4AB, ANAX, ANRFX, DIME, FIB #### [address] [address] Male Infertility Specialist: Mo Feliciano MD Smear to Pathologiston 01-26 Smear to Pathologist ELECTRONICALLY SIGNED. TAMANNA GONZALES M.D. Normal [facility] Comment on above: Performed By: #### B MPX, CDP #### [address] [address] Male Infertility Specialist: Mo Feliciano MD ONOFER SCREEN WITH REFLEXon DNA double strand IgG IA Ql (S) 35 High NINF [facility] Comment on above: Reference Range: <10.0 Negative 10.0-15.0 Equivocal >15.0 Positive Interpretation and review of laboratory results Abnormal [facility] Nuclear Ab IA Ql (S) Positive Abnormal NEGATIVE [facility] Nuclear IgG IA (S) [Ratio] 0.5 U/mL [facility] - 0.7 U/mL [facility] Comment on above: Reference Range: <0.7 Negative 0.7-1.0 Equivocal >1.0 Positive DAVID Screen includes U1RNP,RNP70,Sm,Ro(SS-A),La(SS-B),CENP,Scl-70,Val-1 [facility] ONOFRE Screen w/reflexon 2024 ONOFRE Screen Positive Abnormal NEG [facility] Comment on above: Performed By: #### G HLTEG #### [address] [address] Male Infertility Specialist: Mo Feliciano MD Anti-dsDNA 35.0 IU/mL High <10.0 [facility] Comment on above: Result Comment: Reference Range: <10.0 Negative 10.0-15.0 Equivocal >15.0 Positive Performed By: #### G HLTEG #### [address] [phone] Male Infertility Specialist: Mo Feliciano MD DAVID Screen 0.5 U/mL Normal <0.7 [facility] Comment on above: Result Comment: Reference Range: <0.7 Negative 0.7-1.0 Equivocal >1.0 Positive DAVID Screen includes U1RNP,RNP70,Sm,Ro(SS-A),La(SS-B),CENP,Scl-70,Val-1 Performed By: #### G HLTEG #### [address] [phone] Male Infertility Specialist: Mo Feliciano MD Basic Metab w/rfx MGon 01-25 Anion gap [Moles/Vol] 11 mmol/L Normal 9-16 [facility] Comment on above: Performed By: #### F DP, CDP, BMPX, PRCAL, HIVCMB, HP4AB, ANAX, ANRFX, DIME, FIB #### [address] [phone] Male Infertility Specialist: Mo Feliciano MD Calcium [Mass/Vol] 8.7 mg/dL Normal 8.6-10.4 [facility] Comment on above: Performed By: #### F DP, CDP, BMPX, PRCAL, HIVCMB, HP4AB, ANAX, ANRFX, DIME, FIB #### [facility] [employer] [address] [place] [address] [phone] Male Infertility Specialist: Mo Feliciano MD Chloride [Moles/Vol] 101 mmol/L Normal 98-107 [facility] Comment on above: Performed By: #### F DP, CDP, BMPX, PRCAL, HIVCMB, HP4AB, ANAX, ANRFX, DIME, FIB #### [facility] [employer] [address] [place] [address] [phone] Male Infertility Specialist: Mo Feliciano MD CO2 [Moles/Vol] 22 mmol/L Normal 20-31 [facility] Comment on above: Performed By: #### F DP, CDP, BMPX, PRCAL, HIVCMB, HP4AB, ANAX, ANRFX, DIME, FIB #### [facility] [address] [place] [address] [phone] Male Infertility Specialist: Mo Feliciano MD Creatinine [Mass/Vol] 0.7 mg/dL Normal 0.7-1.2 [facility] Comment on above: Performed By: #### F DP, CDP, BMPX, PRCAL, HIVCMB, HP4AB, ANAX, ANRFX, DIME, FIB #### [address] [address] Male Infertility Specialist: Mo Feliciano MD GFR/1.73 sq M.predicted among non-blacks MDRD (S/P/Bld) [Vol rate/Area] mL/min/{1.73_m2} Normal >60 [facility] Comment on above: Result Comment: These results are not intended [...] following therapy that affects renal tubular secretion. Performed By: #### F DP, CDP, BMPX, PRCAL, HIVCMB, HP4AB, ANAX, ANRFX, DIME, FIB #### [facility] [place] [address] Male Infertility Specialist: Mo Feliciano MD Glucose [Mass/Vol] 87 mg/dL Normal 74-99 [facility] Comment on above: Performed By: #### F DP, CDP, BMPX, PRCAL, HIVCMB, HP4AB, ANAX, ANRFX, DIME, FIB #### [facility] [employer] [address] [place] [address] [phone] Male Infertility Specialist: Mo Feliciano MD Potassium [Moles/Vol] 4.0 mmol/L Normal 3.7-5.3 [facility] Comment on above: Performed By: #### F DP, CDP, BMPX, PRCAL, HIVCMB, HP4AB, ANAX, ANRFX, DIME, FIB #### [facility] [place], [place] [phone] Male Infertility Specialist: Mo Feliciano MD Sodium [Moles/Vol] 134 mmol/L Low 136-145 [facility] Comment on above: Performed By: #### F DP, CDP, BMPX, PRCAL, HIVCMB, HP4AB, ANAX, ANRFX, DIME, FIB #### [facility] [address] [place] [address] [phone] Male Infertility Specialist: Mo Feliciano MD Urea nitrogen [Mass/Vol] 16 mg/dL Normal 8-23 [facility] Comment on above: Performed By: #### F DP, CDP, BMPX, PRCAL, HIVCMB, HP4AB, ANAX, ANRFX, DIME, FIB #### [facility] [address] [place] [address] [phone] Male Infertility Specialist: Mo Feliciano MD Basic Metabolic Panel w/ Ref jorje to MGon 01-25-2025 Anion gap [Moles/Vol] 11 mmol/L 9 - 16 mmol/L [facility] Calcium [Mass/Vol] 8.7 mg/dL 8.6 - 10. 4 mg/dL [facility] Chloride [Moles/Vol] 101 mmol/L 98 - 10 7 mmol/L [facility] CO2 [Moles/Vol] 22 mmol/L 20 - 31 mmol/L [facility] Creatinine [Mass/Vol] 0.7 mg/dL 0.7 - 1.2 mg/dL [facility] Est, Glom Filt Rate - PINF [facility] Comment on above: These results are not intended for use [...] following therapy that affects renal tubular secretion. Glucose [Mass/Vol] 87 mg/dL 74 - 99 mg/dL [facility] Interpretation and review of laboratory results Abnormal [facility] Potassium [Moles/Vol] 4 mmol/L 3.7 - 5.3 mmol/L [facility] Sodium [Moles/Vol] 134 mmol/L Low 136 - 145 mmol/L [facility] Urea nitrogen [Mass/Vol] 16 mg/dL 8 - 23 mg/dL [facility] CBC with Auto Differentialon 01-25-2025 Basophils (Bld) [#/Vol] 0.03 10*3/uL [facility] Basophils/100 WBC (Bld) 0 % 0 - 2 % [facility] Eosinophils (Bld) [#/Vol] [facility] Eosinophils/100 WBC (Bld) 0 % Low 1 - 4 % [facility] Erythrocyte distribution width (RBC) [Ratio] 13.1 % 11.8 - 14.4 % [facility] Hematocrit (Bld) [Volume fraction] 32.2 % Low 40.7 - 50.3 % [facility] Hemoglobin (Bld) [Mass/Vol] 10.4 g/dL Low 13.0 - 17.0 g/dL [facility] Immature granulocytes (Bld) [#/Vol] 0.05 10*3/uL [facility] Immature granulocytes/100 WBC (Bld) 1 % High 0 [facility] Interpretation and review of laboratory results Abnormal [facility] Lymphocytes/100 WBC (Bld) 28 % 24 - 43 % [facility] Lymphocytes/100 WBC (Bld) 2.62 % [facility] MCH (RBC) [Entitic mass] 28.7 pg 25.2 - 33.5 pg [facility] MCHC (RBC) [Mass/Vol] 32.3 g/dL 28.4 - 34.8 g/dL [facility] MCV (RBC) [Entitic vol] 88.7 fL 82.6 - 102.9 fL [facility] Monocytes/100 WBC (Bld) 10 % 3 - 12 % [facility] Monocytes/100 WBC (Bld) 0.91 % [facility] Neutrophils/100 WBC (Bld) 62 % 36 - 65 % [facility] Nucleated RBC/100 WBC (Bld) [Ratio] 0 % 0.0 per 100 WBC [facility], Fluorescence 6 Critically low [facility] Platelets (Bld) [#/Vol] See Reflexed IPF Result [facility] Plate[facility] reticulated/100 platelets Auto (Bld) 22.8 % High 1.1 - 10.3 % [facility] RBC (Bld) [#/Vol] 3.63 10*6/uL Low 4.21 - 5.7 7 m/uL [facility] Segmented neutrophils/100 WBC (Bld) 5.85 % [facility] WBC other (Bld) [#/Vol] 9.5 [facility] CBC with Diffon 01-25-2025 Abs. Basophil 0.03 k/uL Normal 0.00-0.20 [facility] Comment on above: Performed By: #### F DP, CDP, BMPX, PRCAL, HIVCMB, HP4AB, ANAX, ANRFX, DIME, FIB #### [facility] [place] [address] Male Infertility Specialist: Mo Feliciano MD Abs. Eosinophil <0.03 Normal 0.00-0.44 [facility] Comment on above: Performed By: #### F DP, CDP, BMPX, PRCAL, HIVCMB, HP4AB, ANAX, ANRFX, DIME, FIB #### [facility] [place] [address] Male Infertility Specialist: Mo Feliciano MD Abs.Imm.Granulocyte 0.05 k/uL Normal 0.00-0.30 [facility] Comment on above: Performed By: #### F DP, CDP, BMPX, PRCAL, HIVCMB, HP4AB, ANAX, ANRFX, DIME, FIB #### [address] [address] Male Infertility Specialist: Mo Feliciano MD Abs.Neutrophil (Seg) 5.85 k/uL Normal 1.50-8.10 [facility] Comment on above: Performed By: #### F DP, CDP, BMPX, PRCAL, HIVCMB, HP4AB, ANAX, ANRFX, DIME, FIB #### [place] [address] Male Infertility Specialist: Mo Feliciano MD Basophils/100 WBC (Bld) 0 % Normal 0-2 [facility] Comment on above: Performed By: #### F DP, CDP, BMPX, PRCAL, HIVCMB, HP4AB, ANAX, ANRFX, DIME, FIB #### [place] [address] Male Infertility Specialist: Mo Feliciano MD Eosinophils/100 WBC (Bld) 0 % Low 1-4 [facility] Comment on above: Performed By: #### F DP, CDP, BMPX, PRCAL, HIVCMB, HP4AB, ANAX, ANRFX, DIME, FIB #### [place] [address] Male Infertility Specialist: oM Feliciano MD Erythrocyte distribution width (RBC) [Ratio] 13.1 % Normal 11.8-14.4 [facility] Comment on above: Performed By: #### F DP, CDP, BMPX, PRCAL, HIVCMB, HP4AB, ANAX, ANRFX, DIME, FIB #### [place] [phone] Male Infertility Specialist: Mo Feliciano MD Hematocrit (Bld) [Volume fraction] 32.2 % Low 40.7-50.3 [facility] Comment on above: Performed By: #### F DP, CDP, BMPX, PRCAL, HIVCMB, HP4AB, ANAX, ANRFX, DIME, FIB #### [address] [phone] Male Infertility Specialist: Mo Feliciano MD Hemoglobin (Bld) [Mass/Vol] 10.4 g/dL Low 13.0-17.0 [facility] Comment on above: Performed By: #### F DP, CDP, BMPX, PRCAL, HIVCMB, HP4AB, ANAX, ANRFX, DIME, FIB #### [place] [phone] Male Infertility Specialist: Mo Feliciano MD Immature granulocytes/100 WBC (Bld) 1 % High 0 [facility] Comment on above: Performed By: #### F DP, CDP, BMPX, PRCAL, HIVCMB, HP4AB, ANAX, ANRFX, DIME, FIB #### [place] [address] Male Infertility Specialist: Mo Feliciano MD Lymphocytes (Bld) [#/Vol] 2.62 10*3/uL Normal 1.10-3.70 [facility] Comment on above: Performed By: #### F DP, CDP, BMPX, PRCAL, HIVCMB, HP4AB, ANAX, ANRFX, DIME, FIB #### [place] [address] Male Infertility Specialist: Mo Feliciano MD Lymphocytes/100 WBC (Bld) 28 % Normal 24-43 [facility] Comment on above: Performed By: #### F DP, CDP, BMPX, PRCAL, HIVCMB, HP4AB, ANAX, ANRFX, DIME, FIB #### [facility] [address] [phone] Male Infertility Specialist: Mo Feliciano MD MCH (RBC) [Entitic mass] 28.7 pg Normal 25.2-33.5 [facility] Comment on above: Performed By: #### F DP, CDP, BMPX, PRCAL, HIVCMB, HP4AB, ANAX, ANRFX, DIME, FIB #### [place] [phone] Male Infertility Specialist: Mo Feliciano MD MCHC (RBC) [Mass/Vol] 32.3 g/dL Normal 28.4-34.8 [facility] Comment on above: Performed By: #### F DP, CDP, BMPX, PRCAL, HIVCMB, HP4AB, ANAX, ANRFX, DIME, FIB #### [place] [phone] Male Infertility Specialist: Mo Feliciano MD MCV (RBC) [Entitic vol] 88.7 fL Normal 82.6-102.9 [facility] Comment on above: Performed By: #### F DP, CDP, BMPX, PRCAL, HIVCMB, HP4AB, ANAX, ANRFX, DIME, FIB #### [address] [phone] Male Infertility Specialist: Mo Feliciano MD Monocytes (Bld) [#/Vol] 0.91 10*3/uL Normal 0.10-1.20 [facility] Comment on above: Performed By: #### F DP, CDP, BMPX, PRCAL, HIVCMB, HP4AB, ANAX, ANRFX, DIME, FIB #### [address] [phone] Male Infertility Specialist: Mo Feliciano MD Monocytes/100 WBC (Bld) 10 % Normal 3-12 [facility] Comment on above: Performed By: #### F DP, CDP, BMPX, PRCAL, HIVCMB, HP4AB, ANAX, ANRFX, DIME, FIB #### [address] [address] Male Infertility Specialist: Mo Feliciano MD Neutrophil (Seg) 62 % Normal 36-65 [facility] Comment on above: Performed By: #### F DP, CDP, BMPX, PRCAL, HIVCMB, HP4AB, ANAX, ANRFX, DIME, FIB #### [address] [address] Male Infertility Specialist: Mo Feliciano MD NRBC Automated 0.0 per 100 WBC Normal 0.0 [facility] Comment on above: Performed By: #### F DP, CDP, BMPX, PRCAL, HIVCMB, HP4AB, ANAX, ANRFX, DIME, FIB #### [address] [address] Male Infertility Specialist: Mo Feliciano MD Platelet Count See Reflexed IPF Result Normal 138-453 [facility] Comment on above: Performed By: #### F DP, CDP, BMPX, PRCAL, HIVCMB, HP4AB, ANAX, ANRFX, DIME, FIB #### [address] [address] Male Infertility Specialist: Mo Feliciano MD Platelet, Fluoresc. 6 k/uL Critically low 138-453 [facility] Comment on above: Performed By: #### F DP, CDP, BMPX, PRCAL, HIVCMB, HP4AB, ANAX, ANRFX, DIME, FIB #### [address] [address] Male Infertility Specialist: Mo Feliciano MD PLT, Immature Fract. 22.8 % High 1.1-10.3 [facility] Comment on above: Performed By: #### F DP, CDP, BMPX, PRCAL, HIVCMB, HP4AB, ANAX, ANRFX, DIME, FIB #### [address] [phone] Male Infertility Specialist: Mo Feliciano MD RBC (Bld) [#/Vol] 3.63 10*6/uL Low 4.21-5.77 [facility] Comment on above: Performed By: #### F DP, CDP, BMPX, PRCAL, HIVCMB, HP4AB, ANAX, ANRFX, DIME, FIB #### [facility] [address] [place] [address] [phone] Male Infertility Specialist: Mo Feliciano MD WBC (Bld) [#/Vol] 9.5 10*3/uL Normal 3.5-11.3 [facility] Comment on above: Performed By: #### F DP, CDP, BMPX, PRCAL, HIVCMB, HP4AB, ANAX, ANRFX, DIME, FIB #### [address] [address] Male Infertility Specialist: Mo Feliciano MD Prot. Electroph, Blon 2024 Albumin [Mass/Vol] 3.1 g/dL Low 3.2-5.2 [facility] Comment on above: Performed By: #### F DP, CDP, BMPX, PRCAL, HIVCMB, HP4AB, ANAX, ANRFX, DIME, FIB #### [address] [address] Male Infertility Specialist: oM Feliciano MD Albumin, % 37 % Low 56-66 [facility] Comment on above: Performed By: #### F DP, CDP, BMPX, PRCAL, HIVCMB, HP4AB, ANAX, ANRFX, DIME, FIB #### [facility] [employer] [address] [place] [address] [phone] Male Infertility Specialist: Mo Feliciano MD [id number]-4-onrxbfhyz 0.4 g/dL Normal 0.1-0.4 [facility] Comment on above: Performed By: #### F DP, CDP, BMPX, PRCAL, HIVCMB, HP4AB, ANAX, ANRFX, DIME, FIB #### [facility] [employer] [address] [place] [phone] Male Infertility Specialist: Mo Feliciano MD Zlwdd-1-mjczbsyfs,% 5 % Normal 3-5 [facility] Comment on above: Performed By: #### F DP, CDP, BMPX, PRCAL, HIVCMB, HP4AB, ANAX, ANRFX, DIME, FIB #### [facility] [employer] [address] [place] [address] [phone] Male Infertility Specialist: Mo Feliciano MD Xhmww-5-rfflmpqho 1.0 g/dL High 0.5-0.9 [facility] Comment on above: Performed By: #### F DP, CDP, BMPX, PRCAL, HIVCMB, HP4AB, ANAX, ANRFX, DIME, FIB #### [facility] [employer] [address] [place] [phone] Male Infertility Specialist: Mo Feliciano MD Fwacr-6-zvokdpgfy,% 11 % Normal 7-12 [facility] Comment on above: Performed By: #### F DP, CDP, BMPX, PRCAL, HIVCMB, HP4AB, ANAX, ANRFX, DIME, FIB #### [facility] [employer] [address] [place] [phone] Male Infertility Specialist: Mo Feliciano MD Beta-globulins 0.8 g/dL Normal 0.7-1.4 [facility] Comment on above: Performed By: #### F DP, CDP, BMPX, PRCAL, HIVCMB, HP4AB, ANAX, ANRFX, DIME, FIB #### [facility] [employer] [address] [place] [id number] Male Infertility Specialist: Mo Feliciano MD Beta-globulins,% 10 % Normal 8-13 [facility] Comment on above: Performed By: #### F DP, CDP, BMPX, PRCAL, HIVCMB, HP4AB, ANAX, ANRFX, DIME, FIB #### [facility] [place] [address] Male Infertility Specialist: Mo Feliciano MD Gamma-globulins 3.1 g/dL High 0.5-1.5 [facility] Comment on above: Performed By: #### F DP, CDP, BMPX, PRCAL, HIVCMB, HP4AB, ANAX, ANRFX, DIME, FIB #### [facility] [employer] [address] [place] [address] Male Infertility Specialist: Mo Feliciano MD Gamma-globulins,% 37 % High 11-19 [facility] Comment on above: Performed By: #### F DP, CDP, BMPX, PRCAL, HIVCMB, HP4AB, ANAX, ANRFX, DIME, FIB #### [facility] [employer] [address] [place] [address] Male Infertility Specialist: Mo Feliciano MD Total Prot. Sum 8.4 g/dL High 6.3-8.2 [facility] Comment on above: Performed By: #### F DP, CDP, BMPX, PRCAL, HIVCMB, HP4AB, ANAX, ANRFX, DIME, FIB #### [facility] [employer] [address] [place] [address] Male Infertility Specialist: Mo Feliciano MD Total Prot. Sum,% 100 % Normal 98-102 [facility] Comment on above: Performed By: #### F DP, CDP, BMPX, PRCAL, HIVCMB, HP4AB, ANAX, ANRFX, DIME, FIB #### [facility] [employer] [address] [place] [address] Male Infertility Specialist: Mo Feliciano MD SURGICAL PATHOLOGY REPORTon 01-25-2025 Surgical Pathology [address] [id number] [facility] ANATOMIC PATHOLOGY [address] [place] [address]. [place], [place] [address] SURGICAL PATHOLOGY CONSULTATION Patient Name: AMBROSIO RAMÍREZ V. MR#: [id number] Specimen #[id number] Procedures/Addenda PERIPHERAL BLOOD REPORT Date Ordered: 01/23/2025 Status: Signed Out Date Complete: 01/25/2025 By: Tamanna Gonzales M.D. Date Reported: 01/25/2025 INTERPRETATION Peripheral blood: - Normocytic red blood cells with unremarkable morphology. - White blood cells with normal morphology. No blasts. - Marked thrombocytopenia. RESULTS-COMMENTS PERIPHERAL BLOOD STUDY CBC: Please see the electronic health record for CBC parameters ([id number], 01/22/2025, 04:18). PLATELETS: Marked thrombocytopenia. LEUKOCYTES: White blood cells show normal morphology. No atypical lymphocytes. No dysplasia. There are no blasts. ERYTHROCYTES: Red blood cells show normal morphology. No schistocytes. Note: The electronic health record is reviewed. Tamanna Gonzales M.D. Source: A: Peripheral Blood [facility] [employer] [facility] [id number] ACTIVITYon 01-25-20 25 [id number] Activity >100 61 - PINF % [facility] Comment on above: (NOTE) INTERPRETIVE INFORMATION: [id number] Activity TTHKAI53 levels of less than 10 percent may be associated with either inherited (Tomeka-Abel Syndrome) or acquired thrombotic thrombocytopenic purpura (TTP). A variety of medical conditions may result in a mild to moderate deficiency of WLAOER15 activity. Recent plasma exchange therapy may raise the observed UPHBMZ09 activity. This test was developed and its performance characteristics determined by [facility]. It has not been cleared or approved by the [place] Food and Drug Administration. This test was performed in a CLIA certified laboratory and is intended for clinical purposes. Performed By: [facility] [address] [place] [address] [employer] Program Coordinator: Mariusz Melo MD, PhD CLIA Number: [id number] [facility] [id number] Activityon 01-25-20 25 [id number] Activity >100 Normal >=61 [facility] Comment on above: Result Comment: (NOT E) INTERPRETIVE INFORMATION: XQINNB03 Activity RGCVCT67 levels of less than 10 percent may be associated with either inherited (Tomeka-Abel Syndrome) or acquired thrombotic thrombocytopenic purpura (TTP). A variety of medical conditions may result in a mild to moderate deficiency of RXHKRA39 activity. Recent plasma exchange therapy may raise the observed FUVFBB28 activity. This test was developed and its performance characteristics determined by [facility]. It has not been cleared or approved by the [place] Food and Drug Administration. This test was performed in a CLIA certified laboratory and is intended for clinical purposes. Performed By: [facility] [address] [place] [id number] [employer] Coordinator: Mariusz Melo MD, PhD CLIA Number: [id number] Performed By: #### F DP, CDP, BMPX, PRCAL, HIVCMB, HP4AB, ANAX, ANRFX, DIME, FIB #### [address] [address] Male Infertility Specialist: Mo Feliciano MD Basic Metab w/rfx MGon 01-24 Anion gap [Moles/Vol] 9 mmol/L Normal 9-16 [facility] Comment on above: Performed By: #### G HLTEG #### [address] [address] Male Infertility Specialist: Mo Feliciano MD Calcium [Mass/Vol] 8.6 mg/dL Normal 8.6-10.4 [facility] Comment on above: Performed By: #### G HLTEG #### [facility] [employer] [address] [place] [address] Male Infertility Specialist: Mo Feliciano MD Chloride [Moles/Vol] 104 mmol/L Normal 98-107 [facility] Comment on above: Performed By: #### G HLTEG #### [facility] [employer] [address] [place] [address] Male Infertility Specialist: Mo Feliciano MD CO2 [Moles/Vol] 20 mmol/L Normal 20-31 [facility] Comment on above: Performed By: #### G HLTEG #### [facility] [employer] [address] [place] [address] Male Infertility Specialist: Mo Feliciano MD Creatinine [Mass/Vol] 0.5 mg/dL Low 0.7-1.2 [facility] Comment on above: Performed By: #### G HLTEG #### [address] [address] Male Infertility Specialist: Mo Feliciano MD GFR/1.73 sq M.predicted among non-blacks MDRD (S/P/Bld) [Vol rate/Area] mL/min/{1.73_m2} Normal >60 [facility] Comment on above: Result Comment: These results are not intended [...] following therapy that affects renal tubular secretion. Performed By: #### G HLTEG #### [facility] [employer] [address] [place] [address] Male Infertility Specialist: Mo Feliciano MD Glucose [Mass/Vol] 97 mg/dL Normal 74-99 [facility] Comment on above: Performed By: #### G HLTEG #### [facility] [employer] [address] [place] [address] Male Infertility Specialist: Mo Feliciano MD Potassium [Moles/Vol] 4.2 mmol/L Normal 3.7-5.3 [facility] Comment on above: Result Comment: Spec imen hemolysis has exceeded the interference as defined by Aidan. Value may be falsely increased. Suggest recollection if clinically indicated. Performed By: #### G HLTEG #### [facility] [employer] [address] [place] [address] Male Infertility Specialist: Mo Feliciano MD Sodium [Moles/Vol] 133 mmol/L Low 136-145 [facility] Comment on above: Performed By: #### G HLTEG #### [facility] [employer] [address] [place], [place] [id number] Male Infertility Specialist: Mo Feliciano MD Urea nitrogen [Mass/Vol] 21 mg/dL Normal 8-23 [facility] Comment on above: Performed By: #### G HLTEG #### [facility] [address] [place], [place] [id number] Male Infertility Specialist: Mo Feliciano MD Basic Metabolic Panel w/ Ref jorje to MGon 01-24-2025 Anion gap [Moles/Vol] 9 mmol/L 9 - 16 mmol/L [facility] Calcium [Mass/Vol] 8.6 mg/dL 8.6 - 10. 4 mg/dL [facility] [employer] Chloride [Moles/Vol] 104 mmol/L 98 - 10 7 mmol/L [facility] CO2 [Moles/Vol] 20 mmol/L 20 - 31 mmol/L [facility] Creatinine [Mass/Vol] 0.5 mg/dL Low 0.7 - 1.2 mg/dL [facility] Est, Glom Joset Rate - PINF [facility] Comment on above: These results are not intended for use [...] following therapy that affects renal tubular secretion. Glucose [Mass/Vol] 97 mg/dL 74 - 99 mg/dL [facility] Interpretation and review of laboratory results Abnormal [facility] Potassium [Moles/Vol] 4.2 mmol/L 3.7 - 5.3 mmol/L [facility] Comment on above: Specimen hemolysis h as exceeded the interference as defined by Aidan. Value may be falsely increased. Suggest recollection if clinically indicated. Sodium [Moles/Vol] 133 mmol/L Low 136 - 145 mmol/L [facility] Urea nitrogen [Mass/Vol] 21 mg/dL 8 - 23 mg/dL [facility] CBC with Auto Differentialon 01-24-2025 Basophils (Bld) [#/Vol] [facility] Basophils/100 WBC (Bld) 0 % 0 - 2 % [facility] Eosinophils (Bld) [#/Vol] [facility] Eosinophils/100 WBC (Bld) 0 % Low 1 - 4 % [facility] Erythrocyte distribution width (RBC) [Ratio] 12.9 % 11.8 - 14.4 % [facility] Hematocrit (Bld) [Volume fraction] 33.1 % Low 40.7 - 50.3 % [facility] Hemoglobin (Bld) [Mass/Vol] 10.7 g/dL Low 13.0 - 17.0 g/dL [facility] Immature granulocytes (Bld) [#/Vol] 0.03 10*3/uL [facility] Immature granulocytes/100 WBC (Bld) 1 % High 0 [facility] Interpretation and review of laboratory results Abnormal [facility] Lymphocytes/100 WBC (Bld) 12 % Low 24 - 43 % [facility] Lymphocytes/100 WBC (Bld) 0.78 % Low [facility] MCH (RBC) [Entitic mass] 28.8 pg 25.2 - 33.5 pg [facility] MCHC (RBC) [Mass/Vol] 32.3 g/dL 28.4 - 34.8 g/dL [facility] MCV (RBC) [Entitic vol] 89 fL 82.6 - 102.9 fL [facility] Monocytes/100 WBC (Bld) 2 % Low 3 - 12 % [facility] Monocytes/100 WBC (Bld) 0.11 % [facility] Neutrophils/100 WBC (Bld) 85 % High 36 - 65 % [facility] Nucleated RBC/100 WBC (Bld) [Ratio] 0 % 0.0 per 100 WBC [facility] Platelet, Fluorescence 8 Critically low [facility] Platelets (Bld) [#/Vol] See Reflexed IPF Result [facility] Platelets reticulated/100 platelets Auto (Bld) 30.2 % High 1.1 - 10.3 % [facility] RBC (Bld) [#/Vol] 3.72 10*6/uL Low 4.21 - 5.7 7 m/uL [facility] Segmented neutrophils/100 WBC (Bld) 5.39 % [facility] WBC other (Bld) [#/Vol] 6.3 [facility] Basophils (Bld) [#/Vol] 0.03 10*3/uL [facility] Basophils/100 WBC (Bld) 0 % 0 - 2 % [facility] Eosinophils (Bld) [#/Vol] [facility] Eosinophils/100 WBC (Bld) 0 % Low 1 - 4 % [facility] Erythrocyte distribution width (RBC) [Ratio] 13 % 11.8 - 14.4 % [facility] Hematocrit (Bld) [Volume fraction] 34.8 % Low 40.7 - 50.3 % [facility] Hemoglobin (Bld) [Mass/Vol] 10.8 g/dL Low 13.0 - 17.0 g/dL [facility] Immature granulocytes (Bld) [#/Vol] 0.05 10*3/uL [facility] Immature granulocytes/100 WBC (Bld) 1 % High 0 [facility] Interpretation and review of laboratory results Abnormal [facility] Lymphocytes/100 WBC (Bld) 21 % Low 24 - 43 % [facility] Lymphocytes/100 WBC (Bld) 1.79 % [facility] MCH (RBC) [Entitic mass] 28.2 pg 25.2 - 33.5 pg [facility] MCHC (RBC) [Mass/Vol] 31 g/dL 28.4 - 34.8 g/dL [facility] MCV (RBC) [Entitic vol] 90.9 fL 82.6 - 102.9 fL [facility] Monocytes/100 WBC (Bld) 8 % 3 - 12 % [facility] Monocytes/100 WBC (Bld) 0.72 % [facility] Neutrophils/100 WBC (Bld) 70 % High 36 - 65 % [facility] [employer] Nucleated RBC/100 WBC (Bld) [Ratio] 0 % 0.0 per 100 [facility]BC [facility], Fluorescence 6 Critically low [facility] [employer] Platelets (Bld) [#/Vol] See Reflexed IPF Result [facility] Platelets reticulated/100 platelets Auto (Bld) 25.9 % High 1.1 - 10.3 % [facility] [employer] RBC (Bld) [#/Vol] 3.83 10*6/uL Low 4.21 - 5.7 7 m/uL [facility] Segmented neutrophils/100 WBC (Bld) 6.03 % [facility] [employer] WBC other (Bld) [#/Vol] 8.6 [facility] [employer] [facility] with Diffon 01-24-2025 Abs. Basophil <0.03 Normal 0.00-0.20 [facility] Comment on above: Performed By: #### B MPX, CDP #### [facility] [employer] [address] [place] [address] Male Infertility Specialist: Mo Feliciano MD Abs. Eosinophil <0.03 Normal 0.00-0.44 [facility] Comment on above: Performed By: #### B MPX, CDP #### [facility] [address] [place] [address] Male Infertility Specialist: Mo Feliciano MD Abs.Imm.Granulocyte 0.03 k/uL Normal 0.00-0.30 [facility] Comment on above: Performed By: #### B MPX, CDP #### [facility] [address] [place] [address] Male Infertility Specialist: Mo Feliciano MD Abs.Neutrophil (Seg) 5.39 k/uL Normal 1.50-8.10 [facility] Comment on above: Performed By: #### B MPX, CDP #### [facility] [address] [place] [address] Male Infertility Specialist: Mo Feliciano MD Basophils/100 WBC (Bld) 0 % Normal 0-2 [facility] Comment on above: Performed By: #### B MPX, CDP #### [facility] [address] [place] [address] Male Infertility Specialist: oM Feliciano MD Eosinophils/100 WBC (Bld) 0 % Low 1-4 [facility] Comment on above: Performed By: #### B MPX, CDP #### [facility] [address] [place] [address] Male Infertility Specialist: Mo Feliciano MD Erythrocyte distribution width (RBC) [Ratio] 12.9 % Normal 11.8-14.4 [facility] Comment on above: Performed By: #### B MPX, CDP #### [facility] [address] [place] [address] Male Infertility Specialist: Mo Feliciano MD Hematocrit (Bld) [Volume fraction] 33.1 % Low 40.7-50.3 [facility] Comment on above: Performed By: #### B MPX, CDP #### [facility] [address] [place] [address] Male Infertility Specialist: Mo Feliciano MD Hemoglobin (Bld) [Mass/Vol] 10.7 g/dL Low 13.0-17.0 [facility] Comment on above: Performed By: #### B MPX, CDP #### [facility] [address] [place] [address] Male Infertility Specialist: Mo Feliciano MD Immature granulocytes/100 WBC (Bld) 1 % High 0 [facility] Comment on above: Performed By: #### B MPX, CDP #### [facility] [address] [place] [address] Male Infertility Specialist: Mo Feliciano MD Lymphocytes (Bld) [#/Vol] 0.78 10*3/uL Low 1.10-3.70 [facility] Comment on above: Performed By: #### B MPX, CDP #### [address] [address] Male Infertility Specialist: Mo Feliciano MD Lymphocytes/100 WBC (Bld) 12 % Low 24-43 [facility] Comment on above: Performed By: #### B MPX, CDP #### [address] [address] Male Infertility Specialist: Mo Feliciano MD MCH (RBC) [Entitic mass] 28.8 pg Normal 25.2-33.5 [facility] Comment on above: Performed By: #### B MPX, CDP #### [address] [address] Male Infertility Specialist: Mo Feliciano MD MCHC (RBC) [Mass/Vol] 32.3 g/dL Normal 28.4-34.8 [facility] Comment on above: Performed By: #### B MPX, CDP #### [address] [address] Male Infertility Specialist: Mo Feliciano MD MCV (RBC) [Entitic vol] 89.0 fL Normal 82.6-102.9 [facility] Comment on above: Performed By: #### B MPX, CDP #### [address] [address] Male Infertility Specialist: Mo Feliciano MD Monocytes (Bld) [#/Vol] 0.11 10*3/uL Normal 0.10-1.20 [facility] Comment on above: Performed By: #### B MPX, CDP #### [address] [address] Male Infertility Specialist: Mo Feliciano MD Monocytes/100 WBC (Bld) 2 % Low 3-12 [facility] Comment on above: Performed By: #### B MPX, CDP #### [address] [address] Male Infertility Specialist: Mo Feliciano MD Neutrophil (Seg) 85 % High 36-65 [facility] Comment on above: Performed By: #### B MPX, CDP #### [address] [address] Male Infertility Specialist: Mo Feliciano MD NRBC Automated 0.0 per 100 WBC Normal 0.0 [facility] Comment on above: Performed By: #### B MPX, CDP #### [address] [address] Male Infertility Specialist: Mo Feliciano MD Platelet Count See Reflexed IPF Result Normal 138-453 [facility] Comment on above: Performed By: #### B MPX, CDP #### [address] [address] Male Infertility Specialist: Mo Feliciano MD Platelet, Fluoresc. 8 k/uL Critically low 138-453 [facility] Comment on above: Performed By: #### B MPX, CDP #### [address] [address] Male Infertility Specialist: Mo Feliciano MD PLT, Immature Fract. 30.2 % High 1.1-10.3 [facility] Comment on above: Performed By: #### B MPX, CDP #### [address] [address] Male Infertility Specialist: Mo Feliciano MD RBC (Bld) [#/Vol] 3.72 10*6/uL Low 4.21-5.77 [facility] Comment on above: Performed By: #### B MPX, CDP #### [address] [address] Male Infertility Specialist: Mo Feliciano MD WBC (Bld) [#/Vol] 6.3 10*3/uL Normal 3.5-11.3 [facility] Comment on above: Performed By: #### B MPX, CDP #### [address] [address] Male Infertility Specialist: Mo Feliciano MD Platelet, Fluoresc. 6 k/uL Critically low 138-453 [facility] Comment on above: Performed By: #### G HLTEG #### [place] [address] Male Infertility Specialist: Mo Feliciano MD PLT, Immature Fract. 25.9 % High 1.1-10.3 [facility] Comment on above: Performed By: #### G HLTEG #### [address] [address] Male Infertility Specialist: Mo Feliciano MD Abs. Basophil 0.03 k/uL Normal 0.00-0.20 [facility] Comment on above: Performed By: #### G HLTEG #### [address] [address] Male Infertility Specialist: Mo Feliciano MD Abs. Eosinophil <0.03 Normal 0.00-0.44 [facility] Comment on above: Performed By: #### G HLTEG #### [address] [address] Male Infertility Specialist: Mo Feliciano MD Abs.Imm.Granulocyte 0.05 k/uL Normal 0.00-0.30 [facility] Comment on above: Performed By: #### G HLTEG #### [address] [address] Male Infertility Specialist: Mo Feliciano MD Abs.Neutrophil (Seg) 6.03 k/uL Normal 1.50-8.10 [facility] Comment on above: Performed By: #### G HLTEG #### [address] [address] Male Infertility Specialist: Mo Feliciano MD Basophils/100 WBC (Bld) 0 % Normal 0-2 [facility] Comment on above: Performed By: #### G HLTEG #### [address] [address] Male Infertility Specialist: Mo Feliciano MD Eosinophils/100 WBC (Bld) 0 % Low 1-4 [facility] Comment on above: Performed By: #### G HLTEG #### [address] [address] Male Infertility Specialist: Mo Feliciano MD Erythrocyte distribution width (RBC) [Ratio] 13.0 % Normal 11.8-14.4 [facility] Comment on above: Performed By: #### G HLTEG #### [address] [address] Male Infertility Specialist: Mo Feliciano MD Hematocrit (Bld) [Volume fraction] 34.8 % Low 40.7-50.3 [facility] Comment on above: Performed By: #### G HLTEG #### [address] [address] Male Infertility Specialist: Mo Feliciano MD Hemoglobin (Bld) [Mass/Vol] 10.8 g/dL Low 13.0-17.0 [facility] Comment on above: Performed By: #### G HLTEG #### [address] [address] Male Infertility Specialist: Mo Feliciano MD Immature granulocytes/100 WBC (Bld) 1 % High 0 [facility] Comment on above: Performed By: #### G HLTEG #### [address] [address] Male Infertility Specialist: Mo Feliciano MD Lymphocytes (Bld) [#/Vol] 1.79 10*3/uL Normal 1.10-3.70 [facility] Comment on above: Performed By: #### G HLTEG #### [address] [address] Male Infertility Specialist: Mo Feliciano MD Lymphocytes/100 WBC (Bld) 21 % Low 24-43 [facility] Comment on above: Performed By: #### G HLTEG #### [address] [address] Male Infertility Specialist: Mo Feliciano MD MCH (RBC) [Entitic mass] 28.2 pg Normal 25.2-33.5 [facility] Comment on above: Performed By: #### G HLTEG #### [address] [address] Male Infertility Specialist: Mo Feliciano MD MCHC (RBC) [Mass/Vol] 31.0 g/dL Normal 28.4-34.8 [facility] Comment on above: Performed By: #### G HLTEG #### [address] [address] Male Infertility Specialist: Mo Feliciano MD MCV (RBC) [Entitic vol] 90.9 fL Normal 82.6-102.9 [facility] Comment on above: Performed By: #### G HLTEG #### [address] [address] Male Infertility Specialist: Mo Feliciano MD Monocytes (Bld) [#/Vol] 0.72 10*3/uL Normal 0.10-1.20 [facility] Comment on above: Performed By: #### G HLTEG #### [address] [address] Male Infertility Specialist: Mo Feliciano MD Monocytes/100 WBC (Bld) 8 % Normal 3-12 [facility] Comment on above: Performed By: #### G HLTEG #### [address] [address] Male Infertility Specialist: Mo Feliciano MD Neutrophil (Seg) 70 % High 36-65 [facility] Comment on above: Performed By: #### G HLTEG #### [address] [address] Male Infertility Specialist: Mo Feliciano MD NRBC Automated 0.0 per 100 WBC Normal 0.0 [facility] Comment on above: Performed By: #### G HLTEG #### [address] [address] Male Infertility Specialist: Mo Feliciano MD Platelet Count See Reflexed IPF Result Normal 138-453 [facility] Comment on above: Performed By: #### G HLTEG #### [address] [address] Male Infertility Specialist: Mo Feliciano MD RBC (Bld) [#/Vol] 3.83 10*6/uL Low 4.21-5.77 [facility] Comment on above: Performed By: #### G HLTEG #### [address] [address] Male Infertility Specialist: Mo Feliciano MD WBC (Bld) [#/Vol] 8.6 10*3/uL Normal 3.5-11.3 [facility] Comment on above: Performed By: #### G HLTEG #### [address] [address] Male Infertility Specialist: Mo Feliciano MD Hepatic Function Panelon Albumin [Mass/Vol] 3.1 g/dL Low 3.5 - 5.2 g/dL [facility] Albumin/Globulin [Mass ratio] 0.5 {ratio} Low 1.0 - 2.5 [facility] ALP [Catalytic activity/Vol] 61 U/L 40 - 129 U/L [facility] ALT [Catalytic activity/Vol] 28 U/L 10 - 50 U/L [facility] AST [Catalytic activity/Vol] 24 U/L 10 - 50 U/L [facility] Bilirubin [Mass/Vol] 0.6 mg/dL 0.0 - 1 .2 mg/dL [facility] Bilirubin.direct [Mass/Vol] 0.1 mg/dL 0.0 - 0.2 mg/dL [facility] Bilirubin.indirect [Mass/Vol] 0.5 mg/dL 0.0 - 1.0 mg/dL [facility] Globulin (S) [Mass/Vol] 6.4 g/dL [facility] Interpretation and review of laboratory results Abnormal [facility] Protein [Mass/Vol] 9.5 g/dL High 6.6 - 8.7 g/dL [facility] Liver Profileon 01-24-2025 Albumin [Mass/Vol] 3.1 g/dL Low 3.5-5.2 [facility] Comment on above: Performed By: #### G HLTEG #### [facility] [address] [place] [address] Male Infertility Specialist: Mo Feliciano MD Albumin/Glob Ratio 0.5 Low 1.0-2.5 [facility] Comment on above: Performed By: #### G HLTEG #### [facility] [address] [place] [address] [phone] Male Infertility Specialist: Mo Feliciano MD Alkaline Phos 61 U/L Normal 40-129 [facility] Comment on above: Performed By: #### G HLTEG #### [facility] [place], [place] [phone] Male Infertility Specialist: Mo Feliciano MD ALT [Catalytic activity/Vol] 28 U/L Normal 10-50 [facility] Comment on above: Performed By: #### G HLTEG #### [address] [address] Male Infertility Specialist: Mo Feliciano MD AST [Catalytic activity/Vol] 24 U/L Normal 10-50 [facility] Comment on above: Performed By: #### G HLTEG #### [address] [address] Male Infertility Specialist: Mo Feliciano MD Bilirubin [Mass/Vol] 0.6 mg/dL Normal 0.0-1.2 [facility] Comment on above: Performed By: #### G HLTEG #### [address] [address] Male Infertility Specialist: Mo Feliciano MD Bilirubin, Indirect 0.5 mg/dL Normal 0.0-1.0 [facility] Comment on above: Performed By: #### G HLTEG #### [address] [address] Male Infertility Specialist: Mo Feliciano MD Bilirubin.indirect [Mass/Vol] 0.1 mg/dL Normal 0.0-0.2 [facility] Comment on above: Performed By: #### G HLTEG #### [address] [address] Male Infertility Specialist: Mo Feliciano MD Globulin (S) [Mass/Vol] 6.4 g/dL Normal [facility] Comment on above: Performed By: #### G HLTEG #### [address] [address] Male Infertility Specialist: Mo Feliciano MD Protein [Mass/Vol] 9.5 g/dL High 6.6-8.7 [facility] Comment on above: Performed By: #### G HLTEG #### [address] [address] Male Infertility Specialist: Mo Feliciano MD B12/Folate Panelon Cobalamin (Vitamin B12) [Mass/Vol] 624 pg/mL Normal 232-1245 [facility] Comment on above: Performed By: #### F DP, CDP, BMPX, PRCAL, HIVCMB, HP4AB, ANAX, ANRFX, DIME, FIB #### [address] [address] Male Infertility Specialist: Mo Feliciano MD Folic Acid 11.7 ng/mL Normal 4.8-24.2 [facility] Comment on above: Performed By: #### F DP, CDP, BMPX, PRCAL, HIVCMB, HP4AB, ANAX, ANRFX, DIME, FIB #### [address] [address] Male Infertility Specialist: Mo Feliciano MD Basic Metab w/rfx MGon 01-231 Anion gap [Moles/Vol] 12 mmol/L Normal 9-16 [facility] Comment on above: Performed By: #### B MPX, CDP #### [address] [address] Male Infertility Specialist: Mo Feliciano MD Calcium [Mass/Vol] 8.7 mg/dL Normal 8.6-10.4 [facility] Comment on above: Performed By: #### B MPX, CDP #### [address] [address] Male Infertility Specialist: Mo Feliciano MD Chloride [Moles/Vol] 102 mmol/L Normal 98-107 [facility] Comment on above: Performed By: #### B MPX, CDP #### [address] [address] Male Infertility Specialist: Mo Feliciano MD CO2 [Moles/Vol] 19 mmol/L Low 20-31 [facility] Comment on above: Performed By: #### B MPX, CDP #### [facility] [address] [place] [address] Male Infertility Specialist: Mo Feliciano MD Creatinine [Mass/Vol] 0.6 mg/dL Low 0.7-1.2 [facility] Comment on above: Performed By: #### B MPX, CDP #### [facility] [employer] [address] [place] [address] Male Infertility Specialist: Mo Feliciano MD GFR/1.73 sq M.predicted among non-blacks MDRD (S/P/Bld) [Vol rate/Area] mL/min/{1.73_m2} Normal >60 [facility] Comment on above: Result Comment: These results are not intended [...] following therapy that affects renal tubular secretion. Performed By: #### B MPX, CDP #### [facility] [employer] [address] [place] [address] Male Infertility Specialist: Mo Feliciano MD Glucose [Mass/Vol] 88 mg/dL Normal 74-99 [facility] Comment on above: Performed By: #### B MPX, CDP #### [facility] [address] [place] [address] Male Infertility Specialist: Mo Feliciano MD Potassium [Moles/Vol] 3.7 mmol/L Normal 3.7-5.3 [facility] Comment on above: Performed By: #### B MPX, CDP #### [facility] [employer] [address] [place] [address] Male Infertility Specialist: Mo Feliciano MD Sodium [Moles/Vol] 133 mmol/L Low 136-145 [facility] Comment on above: Performed By: #### B MPX, CDP #### [facility] [address] [place], [place] [phone] Male Infertility Specialist: Mo Feliciano MD Urea nitrogen [Mass/Vol] 20 mg/dL Normal 8-23 [facility] Comment on above: Performed By: #### B MPX, CDP #### [facility] [address] [place], [place] [phone] Male Infertility Specialist: Mo Feliciano MD Basic Metabolic Panel w/ Ref jorje to MGon 01-23-2025 Anion gap [Moles/Vol] 12 mmol/L 9 - 16 mmol/L [facility] [employer] Calcium [Mass/Vol] 8.7 mg/dL 8.6 - 10. 4 mg/dL [facility] Chloride [Moles/Vol] 102 mmol/L 98 - 10 7 mmol/L [facility] CO2 [Moles/Vol] 19 mmol/L Low 20 - 31 mmol/L [facility] Creatinine [Mass/Vol] 0.6 mg/dL Low 0.7 - 1.2 mg/dL [facility] [employer], Glom Filt Rate - PINF [facility] Comment on above: These results are not intended for use [...] following therapy that affects renal tubular secretion. Glucose [Mass/Vol] 88 mg/dL 74 - 99 mg/dL [facility] Interpretation and review of laboratory results Abnormal [facility] [employer] Potassium [Moles/Vol] 3.7 mmol/L 3.7 - 5.3 mmol/L [facility] Sodium [Moles/Vol] 133 mmol/L Low 136 - 145 mmol/L [facility] Urea nitrogen [Mass/Vol] 20 mg/dL 8 - 23 mg/dL [facility] CBC with Auto Differentialon 01-23-2025 Basophils (Bld) [#/Vol] [facility] Basophils/100 WBC (Bld) 0 % 0 - 2 % [facility] Eosinophils (Bld) [#/Vol] [facility] Eosinophils/100 WBC (Bld) 0 % Low 1 - 4 % [facility] Erythrocyte distribution width (RBC) [Ratio] 13.1 % 11.8 - 14.4 % [facility] Hematocrit (Bld) [Volume fraction] 33.6 % Low 40.7 - 50.3 % [facility] Hemoglobin (Bld) [Mass/Vol] 10.9 g/dL Low 13.0 - 17.0 g/dL [facility] Immature granulocytes (Bld) [#/Vol] 0.03 10*3/uL [facility] Immature granulocytes/100 WBC (Bld) 1 % High 0 [facility] Interpretation and review of laboratory results Abnormal [facility] Lymphocytes/100 WBC (Bld) 12 % Low 24 - 43 % [facility] Lymphocytes/100 WBC (Bld) 0.76 % Low [facility] MCH (RBC) [Entitic mass] 28.8 pg 25.2 - 33.5 pg [facility] MCHC (RBC) [Mass/Vol] 32.4 g/dL 28.4 - 34.8 g/dL [facility] MCV (RBC) [Entitic vol] 88.9 fL 82.6 - 102.9 fL [facility] Monocytes/100 WBC (Bld) 4 % 3 - 12 % [facility] Monocytes/100 WBC (Bld) 0.22 % [facility] Neutrophils/100 WBC (Bld) 83 % High 36 - 65 % [facility] Nucleated RBC/100 WBC (Bld) [Ratio] 0 % 0.0 per 100 WBC [facility] Platelet, Fluorescence 3 Critically low [facility] Platelets (Bld) [#/Vol] See Reflexed IPF Result [facility] Platelets reticulated/100 platelets Auto (Bld) 48.4 % High 1.1 - 10.3 % [facility] RBC (Bld) [#/Vol] 3.78 10*6/uL Low 4.21 - 5.7 7 m/uL [facility] Segmented neutrophils/100 WBC (Bld) 5.15 % [facility] WBC other (Bld) [#/Vol] 6.2 [facility] Basophils (Bld) [#/Vol] [facility] Basophils/100 WBC (Bld) 0 % 0 - 2 % [facility] Eosinophils (Bld) [#/Vol] [facility] Eosinophils/100 WBC (Bld) 0 % Low 1 - 4 % [facility] Erythrocyte distribution width (RBC) [Ratio] 12.8 % 11.8 - 14.4 % [facility] Hematocrit (Bld) [Volume fraction] 36.1 % Low 40.7 - 50.3 % [facility] Hemoglobin (Bld) [Mass/Vol] 11.8 g/dL Low 13.0 - 17.0 g/dL [facility] Immature granulocytes (Bld) [#/Vol] 0.06 10*3/uL [facility] Immature granulocytes/100 WBC (Bld) 1 % High 0 [facility] Interpretation and review of laboratory results Abnormal [facility] Lymphocytes/100 WBC (Bld) 19 % Low 24 - 43 % [facility] Lymphocytes/100 WBC (Bld) 1.45 % [facility] MCH (RBC) [Entitic mass] 28.6 pg 25.2 - 33.5 pg [facility] MCHC (RBC) [Mass/Vol] 32.7 g/dL 28.4 - 34.8 g/dL [facility] MCV (RBC) [Entitic vol] 87.6 fL 82.6 - 102.9 fL [facility] Monocytes/100 WBC (Bld) 17 % High 3 - 12 % [facility] Monocytes/100 WBC (Bld) 1.24 % High [facility] Neutrophils/100 WBC (Bld) 63 % 36 - 65 % [facility] Nucleated RBC/100 WBC (Bld) [Ratio] 0 % 0.0 per 100 WBC [facility] Platelet, Fluorescence Critically low [facility] Platelets (Bld) [#/Vol] See Reflexed IPF Result [facility] Platelets reticulated/100 platelets Auto (Bld) 28.7 % High 1.1 - 10.3 % [facility] RBC (Bld) [#/Vol] 4.12 10*6/uL Low 4.21 - 5.7 7 m/uL [facility] Segmented neutrophils/100 WBC (Bld) 4.73 % [facility] WBC other (Bld) [#/Vol] 7.5 [facility] CBC with Diffon 01-23-2025 Platelet, Fluoresc. 3 k/uL Critically low 138-453 [facility] Comment on above: Performed By: #### F DP, CDP, BMPX, PRCAL, HIVCMB, HP4AB, ANAX, ANRFX, DIME, FIB #### [facility] [employer] [address] [place] [address] Male Infertility Specialist: Mo Feliciano MD PLT, Immature Fract. 48.4 % High 1.1-10.3 [facility] Comment on above: Performed By: #### F DP, CDP, BMPX, PRCAL, HIVCMB, HP4AB, ANAX, ANRFX, DIME, FIB #### [facility] [employer] [address] [place], [place] [phone] Male Infertility Specialist: Mo Feliciano MD Abs. Basophil <0.03 Normal 0.00-0.20 [facility] Comment on above: Performed By: #### F DP, CDP, BMPX, PRCAL, HIVCMB, HP4AB, ANAX, ANRFX, DIME, FIB #### [facility] [employer] [address] [place] [address] Male Infertility Specialist: Mo Feliciano MD Abs. Eosinophil <0.03 Normal 0.00-0.44 [facility] Comment on above: Performed By: #### F DP, CDP, BMPX, PRCAL, HIVCMB, HP4AB, ANAX, ANRFX, DIME, FIB #### [address] [phone] Male Infertility Specialist: Mo Feliciano MD Abs.Imm.Granulocyte 0.03 k/uL Normal 0.00-0.30 [facility] Comment on above: Performed By: #### F DP, CDP, BMPX, PRCAL, HIVCMB, HP4AB, ANAX, ANRFX, DIME, FIB #### [address] [phone] Male Infertility Specialist: Mo Feliciano MD Abs.Neutrophil (Seg) 5.15 k/uL Normal 1.50-8.10 [facility] Comment on above: Performed By: #### F DP, CDP, BMPX, PRCAL, HIVCMB, HP4AB, ANAX, ANRFX, DIME, FIB #### [address] [phone] Male Infertility Specialist: Mo Feliciano MD Basophils/100 WBC (Bld) 0 % Normal 0-2 [facility] Comment on above: Performed By: #### F DP, CDP, BMPX, PRCAL, HIVCMB, HP4AB, ANAX, ANRFX, DIME, FIB #### [address] [phone] Male Infertility Specialist: Mo Feliciano MD Eosinophils/100 WBC (Bld) 0 % Low 1-4 [facility] Comment on above: Performed By: #### F DP, CDP, BMPX, PRCAL, HIVCMB, HP4AB, ANAX, ANRFX, DIME, FIB #### [address] [phone] Male Infertility Specialist: Mo Feliciano MD Erythrocyte distribution width (RBC) [Ratio] 13.1 % Normal 11.8-14.4 [facility] Comment on above: Performed By: #### F DP, CDP, BMPX, PRCAL, HIVCMB, HP4AB, ANAX, ANRFX, DIME, FIB #### [facility] [employer] [address] [place] [address] [phone] Male Infertility Specialist: Mo Feliciano MD Hematocrit (Bld) [Volume fraction] 33.6 % Low 40.7-50.3 [facility] Comment on above: Performed By: #### F DP, CDP, BMPX, PRCAL, HIVCMB, HP4AB, ANAX, ANRFX, DIME, FIB #### [facility] [employer] [address] [place] [address] [phone] Male Infertility Specialist: Mo Feliciano MD Hemoglobin (Bld) [Mass/Vol] 10.9 g/dL Low 13.0-17.0 [facility] Comment on above: Performed By: #### F DP, CDP, BMPX, PRCAL, HIVCMB, HP4AB, ANAX, ANRFX, DIME, FIB #### [facility] [employer] [address] [place] [address] Male Infertility Specialist: Mo Feliciano MD Immature granulocytes/100 WBC (Bld) 1 % High 0 [facility] Comment on above: Performed By: #### F DP, CDP, BMPX, PRCAL, HIVCMB, HP4AB, ANAX, ANRFX, DIME, FIB #### [facility] [employer] [address] [place] [address] [phone] Male Infertility Specialist: Mo Feliciano MD Lymphocytes (Bld) [#/Vol] 0.76 10*3/uL Low 1.10-3.70 [facility] Comment on above: Performed By: #### F DP, CDP, BMPX, PRCAL, HIVCMB, HP4AB, ANAX, ANRFX, DIME, FIB #### [facility] [employer] [address] [place] [address] [phone] Male Infertility Specialist: Mo Feliciano MD Lymphocytes/100 WBC (Bld) 12 % Low 24-43 [facility] Comment on above: Performed By: #### F DP, CDP, BMPX, PRCAL, HIVCMB, HP4AB, ANAX, ANRFX, DIME, FIB #### [address] [phone] Male Infertility Specialist: Mo Feliciano MD MCH (RBC) [Entitic mass] 28.8 pg Normal 25.2-33.5 [facility] Comment on above: Performed By: #### F DP, CDP, BMPX, PRCAL, HIVCMB, HP4AB, ANAX, ANRFX, DIME, FIB #### [address] [phone] Male Infertility Specialist: Mo Feliciano MD MCHC (RBC) [Mass/Vol] 32.4 g/dL Normal 28.4-34.8 [facility] Comment on above: Performed By: #### F DP, CDP, BMPX, PRCAL, HIVCMB, HP4AB, ANAX, ANRFX, DIME, FIB #### [address] [phone] Male Infertility Specialist: Mo Feliciano MD MCV (RBC) [Entitic vol] 88.9 fL Normal 82.6-102.9 [facility] Comment on above: Performed By: #### F DP, CDP, BMPX, PRCAL, HIVCMB, HP4AB, ANAX, ANRFX, DIME, FIB #### [address] [phone] Male Infertility Specialist: Mo Feliciano MD Monocytes (Bld) [#/Vol] 0.22 10*3/uL Normal 0.10-1.20 [facility] Comment on above: Performed By: #### F DP, CDP, BMPX, PRCAL, HIVCMB, HP4AB, ANAX, ANRFX, DIME, FIB #### [address] [address] Male Infertility Specialist: Mo Feliciano MD Monocytes/100 WBC (Bld) 4 % Normal 3-12 [facility] Comment on above: Performed By: #### F DP, CDP, BMPX, PRCAL, HIVCMB, HP4AB, ANAX, ANRFX, DIME, FIB #### [address] [address] Male Infertility Specialist: Mo Feliciano MD Neutrophil (Seg) 83 % High 36-65 [facility] Comment on above: Performed By: #### F DP, CDP, BMPX, PRCAL, HIVCMB, HP4AB, ANAX, ANRFX, DIME, FIB #### [address] [address] Male Infertility Specialist: Mo Feliciano MD NRBC Automated 0.0 per 100 WBC Normal 0.0 [facility] Comment on above: Performed By: #### F DP, CDP, BMPX, PRCAL, HIVCMB, HP4AB, ANAX, ANRFX, DIME, FIB #### [address] [address] Male Infertility Specialist: Mo Feliciano MD Platelet Count See Reflexed IPF Result Normal 138-453 [facility] Comment on above: Performed By: #### F DP, CDP, BMPX, PRCAL, HIVCMB, HP4AB, ANAX, ANRFX, DIME, FIB #### [address] [address] Male Infertility Specialist: Mo Feliciano MD RBC (Bld) [#/Vol] 3.78 10*6/uL Low 4.21-5.77 [facility] Comment on above: Performed By: #### F DP, CDP, BMPX, PRCAL, HIVCMB, HP4AB, ANAX, ANRFX, DIME, FIB #### [address] [address] Male Infertility Specialist: Mo Feliciano MD WBC (Bld) [#/Vol] 6.2 10*3/uL Normal 3.5-11.3 [facility] Comment on above: Performed By: #### F DP, CDP, BMPX, PRCAL, HIVCMB, HP4AB, ANAX, ANRFX, DIME, FIB #### [address] [address] Male Infertility Specialist: Mo Feliciano MD Platelet, Fluoresc. <2 Critically low 138-453 [facility] Comment on above: Performed By: #### B MPX, CDP #### [place] [address] Male Infertility Specialist: Mo Feliciano MD PLT, Immature Fract. 28.7 % High 1.1-10.3 [facility] Comment on above: Performed By: #### B MPX, CDP #### [place] [address] Male Infertility Specialist: Mo Feliciano MD Abs. Basophil <0.03 Normal 0.00-0.20 [facility] Comment on above: Performed By: #### B MPX, CDP #### [place] [address] Male Infertility Specialist: Mo Feliciano MD Abs. Eosinophil <0.03 Normal 0.00-0.44 [facility] Comment on above: Performed By: #### B MPX, CDP #### [facility] [employer] [address] [place] [address] Male Infertility Specialist: Mo Feliciano MD Abs.Imm.Granulocyte 0.06 k/uL Normal 0.00-0.30 [facility] Comment on above: Performed By: #### B MPX, CDP #### [address] [address] Male Infertility Specialist: Mo Feliciano MD Abs.Neutrophil (Seg) 4.73 k/uL Normal 1.50-8.10 [facility] Comment on above: Performed By: #### B MPX, CDP #### [facility] [address] [place] [address] Male Infertility Specialist: Mo Feliciano MD Basophils/100 WBC (Bld) 0 % Normal 0-2 [facility] Comment on above: Performed By: #### B MPX, CDP #### [facility] [address] [place] [address] Male Infertility Specialist: Mo Feliciano MD Eosinophils/100 WBC (Bld) 0 % Low 1-4 [facility] Comment on above: Performed By: #### B MPX, CDP #### [address] [address] Male Infertility Specialist: Mo Feliciano MD Erythrocyte distribution width (RBC) [Ratio] 12.8 % Normal 11.8-14.4 [facility] Comment on above: Performed By: #### B MPX, CDP #### [address] [address] Male Infertility Specialist: Mo Feliciano MD Hematocrit (Bld) [Volume fraction] 36.1 % Low 40.7-50.3 [facility] Comment on above: Performed By: #### B MPX, CDP #### [facility] [employer] [address] [place] [address] Male Infertility Specialist: Mo Feliciano MD Hemoglobin (Bld) [Mass/Vol] 11.8 g/dL Low 13.0-17.0 [facility] Comment on above: Performed By: #### B MPX, CDP #### [facility] [address] [place] [address] Male Infertility Specialist: Mo Feliciano MD Immature granulocytes/100 WBC (Bld) 1 % High 0 [facility] Comment on above: Performed By: #### B MPX, CDP #### [address] [address] Male Infertility Specialist: Mo Feliciano MD Lymphocytes (Bld) [#/Vol] 1.45 10*3/uL Normal 1.10-3.70 [facility] Comment on above: Performed By: #### B MPX, CDP #### [place] [address] Male Infertility Specialist: Mo Feliciano MD Lymphocytes/100 WBC (Bld) 19 % Low 24-43 [facility] Comment on above: Performed By: #### B MPX, CDP #### [place] [address] Male Infertility Specialist: Mo Feliciano MD MCH (RBC) [Entitic mass] 28.6 pg Normal 25.2-33.5 [facility] Comment on above: Performed By: #### B MPX, CDP #### [place] [address] Male Infertility Specialist: Mo Feliciano MD MCHC (RBC) [Mass/Vol] 32.7 g/dL Normal 28.4-34.8 [facility] Comment on above: Performed By: #### B MPX, CDP #### [place] [address] Male Infertility Specialist: Mo Feliciano MD MCV (RBC) [Entitic vol] 87.6 fL Normal 82.6-102.9 [facility] Comment on above: Performed By: #### B MPX, CDP #### [address] [address] Male Infertility Specialist: Mo Feliciano MD Monocytes (Bld) [#/Vol] 1.24 10*3/uL High 0.10-1.20 [facility] Comment on above: Performed By: #### B MPX, CDP #### [address] [address] Male Infertility Specialist: Mo Feliciano MD Monocytes/100 WBC (Bld) 17 % High 3-12 [facility] Comment on above: Performed By: #### B MPX, CDP #### [address] [address] Male Infertility Specialist: Mo Feliciano MD Neutrophil (Seg) 63 % Normal 36-65 [facility] Comment on above: Performed By: #### B MPX, CDP #### [address] [address] Male Infertility Specialist: Mo Feliciano MD NRBC Automated 0.0 per 100 WBC Normal 0.0 [facility] Comment on above: Performed By: #### B MPX, CDP #### [address] [address] Male Infertility Specialist: Mo Feliciano MD Platelet Count See Reflexed IPF Result Normal 138-453 [facility] Comment on above: Performed By: #### B MPX, CDP #### [address] [address] Male Infertility Specialist: Mo Feliciano MD RBC (Bld) [#/Vol] 4.12 10*6/uL Low 4.21-5.77 [facility] Comment on above: Performed By: #### B MPX, CDP #### [facility] [address] [place] [id number] Male Infertility Specialist: Mo Feliciano MD WBC (Bld) [#/Vol] 7.5 10*3/uL Normal 3.5-11.3 [facility] Comment on above: Performed By: #### B MPX, CDP #### [address] [address] Male Infertility Specialist: Mo Feliciano MD CMV IgG AND IgMon 01-23-2025 CMV Ab,IgG 744.0 High <0.5 [facility] Comment on above: Result Comment: Reference Range: <0.5 Non Reactive [...] cannot be used interchangeably. Performed By: #### F DP, CDP, BMPX, PRCAL, HIVCMB, HP4AB, ANAX, ANRFX, DIME, FIB #### [facility] [facility] [address] [place] [address] Male Infertility Specialist: Mo Feliciano MD CMV Ab,IgM 0.2 Normal <0.7 [facility] Comment on above: Result Comment: Reference Range: <0.7 Non Reactive [...] cannot be used interchangeably. Performed By: #### F DP, CDP, BMPX, PRCAL, HIVCMB, HP4AB, ANAX, ANRFX, DIME, FIB #### [facility] [address] [place] [id number] Male Infertility Specialist: Mo Feliciano MD CT CHEST W CONTRASTon 2024 CT CHEST W CONTRAST EXAMINATION: CT OF THE CHEST WITH CONTRAST [...] for comparison. HISTORY: ORDERING SYSTEM PROVIDED HISTORY[facility] TECHNOLOGIST PROVIDED HISTORY: itp evalaute [...] by: Jason Mckeon MD 01/23/25 Final result Normal [facility] CT Chest W contrast Eduardo 1. No evidence of malignancy in the chest. 2. Mild centrilobular emphysema. 3. Coronary artery atherosclerosis. 4. Hepatic steatosis. [facility]PN RIS CONSOLIDATED EXAMINATION: CT OF THE CHEST WITH CONTRAST [...] No aggressive lytic or blastic bony lesion. PN RIS CONSOLIDATED Jason Mckeon MD - 01/23/2025 EXAMINATION: CT [...] 3. Coronary artery atherosclerosis. 4. Hepatic steatosis. [facility] [employer] CT Chest W contrast IVOrdere d By: aJson Mckeon on 01-23-2025 [facility] [employer] Work Phone: Cytomegalovirus Ab,IGG,IGMon 01-23-2025 CMV IgG IA Ql 744.0 High NINF - 0.5 [facility] Comment on above: Reference Range: <0.5 Non Reactive 0.5 to [...] methods cannot be used interchangeably. CMV IgM IA Ql 0.2 NINF - 0.7 [facility] Comment on above: Reference Range: <0.7 Non Reactive 0.7 to [...] different assay methods cannot be used interchangeably. Interpretation and review of laboratory results Abnormal [facility] Heparin Platelet Abon 2024 Heparin Platelet Ab 1.247 O.D. High 0.000-0.400 [facility] Comment on above: Result Comment: O.D. Interpretation: <=0.400 Negative > 0.400 Positive Performed By: #### G HLTEG #### [facility] [employer] [address] [place] [id number] Male Infertility Specialist: Mo Feliciano MD Heparin-Induced Platelet Ant ibodyon 01-23-2025 Heparin induced platelet IgG IA [OD] 1.247 High [facility] Comment on above: O.D. Interpretation: <=0.400 Negative > 0.400 Positive Interpretation and review of laboratory results Abnormal [facility] PREVIOUS SPECIMENon 01-24-20 [facility] Prot. Electroph, Blon 2024 Protein [Mass/Vol] 8.3 g/dL Normal 6.6-8.7 [facility] Comment on above: Performed By: #### F DP, CDP, BMPX, PRCAL, HIVCMB, HP4AB, ANAX, ANRFX, DIME, FIB #### [facility] [address] [place] [phone] Male Infertility Specialist: Mo Feliciano MD Serotonin Rel Assayon 2024 Heparin Type Porcine Heparin Normal [facility] Comment on above: Performed By: #### F DP, CDP, BMPX, PRCAL, HIVCMB, HP4AB, ANAX, ANRFX, DIME, FIB #### [facility] [address] [place], [place] [phone] Male Infertility Specialist: Mo Feliciano MD Vitamin B12 & Folateon 01-23 Folate [Mass/Vol] 11.7 ng/mL 4.8 - 24.2 ng/mL [facility] APTTon 01-22-2025 aPTT Coag (Bld) [Time] 66.5 s High [facility] Comment on above: IV Heparin Therapy Range: 66.0-92.0 sec Interpretation and review of laboratory results Abnormal [facility] aPTT Coag (Bld) [Time] 66.5 s High 23.0-36.5 [facility] Comment on above: Result Comment: IV Heparin Therapy Range: 66.0-92.0 sec Performed By: #### F DP, CDP, BMPX, PRCAL, HIVCMB, HP4AB, ANAX, ANRFX, DIME, FIB #### [facility] [address] [place], [place] [phone] Male Infertility Specialist: Mo Feliciano MD Arterial Bld Gas,POCon 01-22 Jone Test Positive Normal [facility] HCO3 (Bld) [Moles/Vol] 21.9 mmol/L Normal 21.0-28.0 [facility] O2 Device Room Air Normal [facility] Oxygen saturation in Blood 97.7 % Normal 94.0-98.0 [facility] pCO2, Arterial 27.3 mm Hg Low 35.0-48.0 [facility] pH, Arterial 7.511 High 7.350-7.450 [facility] pO2, Arterial 87.1 mm Hg Normal 83.0-108.0 [facility] Positive Base Excess (calc) 0.2 mmol/L Normal 0.0-3.0 [facility] Site Drawn Right Radial Artery Normal [facility] Arterial Blood Gas, POCon Jone Test Positive [facility] HCO3 (Bld) [Moles/Vol] 21.9 mmol/L 21.0 - 28.0 mmol/L [facility] O2 Delivery Device Room Air [facility] Oxygen saturation in Blood 97.7 % 94.0 - 98.0 % [facility] POC pCO2 27.3 Low [facility] POC pH 7.511 High 7.350 - 7.450 [facility] POC PO2 87.1 [facility] Positive Base Excess, Art 0.2 mmol/L 0.0 - 3.0 mmol/L [facility] Sample Site Right Radial Artery [facility] Basic Metab w/rfx MGon 01-22 Anion gap [Moles/Vol] 15 mmol/L Normal 9-16 [facility] Comment on above: Performed By: #### F DP, CDP, BMPX, PRCAL, HIVCMB, HP4AB, ANAX, ANRFX, DIME, FIB #### [facility] [facility] [address] [place] [address] [phone] Male Infertility Specialist: Mo Feliciano MD Calcium [Mass/Vol] 9.3 mg/dL Normal 8.6-10.4 [facility] Comment on above: Performed By: #### F DP, CDP, BMPX, PRCAL, HIVCMB, HP4AB, ANAX, ANRFX, DIME, FIB #### [facility] [address] [place] [address] [phone] Male Infertility Specialist: Mo Feliciano MD Chloride [Moles/Vol] 101 mmol/L Normal 98-107 [facility] Comment on above: Performed By: #### F DP, CDP, BMPX, PRCAL, HIVCMB, HP4AB, ANAX, ANRFX, DIME, FIB #### [facility] [facility] [address] [place] [address] [phone] Male Infertility Specialist: Mo Feliciano MD CO2 [Moles/Vol] 19 mmol/L Low 20-31 [facility] Comment on above: Performed By: #### F DP, CDP, BMPX, PRCAL, HIVCMB, HP4AB, ANAX, ANRFX, DIME, FIB #### [facility] [employer] [address] [place] [address] [phone] Male Infertility Specialist: Mo Feliciano MD Creatinine [Mass/Vol] 0.6 mg/dL Low 0.7-1.2 [facility] Comment on above: Performed By: #### F DP, CDP, BMPX, PRCAL, HIVCMB, HP4AB, ANAX, ANRFX, DIME, FIB #### [address] [address] Male Infertility Specialist: Mo Feliciano MD GFR/1.73 sq M.predicted among non-blacks MDRD (S/P/Bld) [Vol rate/Area] mL/min/{1.73_m2} Normal >60 [facility] Comment on above: Result Comment: These results are not intended [...] following therapy that affects renal tubular secretion. Performed By: #### F DP, CDP, BMPX, PRCAL, HIVCMB, HP4AB, ANAX, ANRFX, DIME, FIB #### [facility] [employer] [address] [place] [address] [phone] Male Infertility Specialist: Mo Feliciano MD Performed By: #### B MPX, CDP #### [facility] [employer] [address] [place] [address] [phone] Male Infertility Specialist: Mo Feliciano MD Glucose [Mass/Vol] 111 mg/dL High 74-99 [facility] Comment on above: Performed By: #### F DP, CDP, BMPX, PRCAL, HIVCMB, HP4AB, ANAX, ANRFX, DIME, FIB #### [facility] [place] [address] Male Infertility Specialist: Mo Feliciano MD Potassium [Moles/Vol] 3.9 mmol/L Normal 3.7-5.3 [facility] Comment on above: Performed By: #### F DP, CDP, BMPX, PRCAL, HIVCMB, HP4AB, ANAX, ANRFX, DIME, FIB #### [facility] [address] [place] [phone] Male Infertility Specialist: Mo Feliciano MD Sodium [Moles/Vol] 135 mmol/L Low 136-145 [facility] Comment on above: Performed By: #### F DP, CDP, BMPX, PRCAL, HIVCMB, HP4AB, ANAX, ANRFX, DIME, FIB #### [facility] [address] [place] [phone] Male Infertility Specialist: Mo Feliciano MD Urea nitrogen [Mass/Vol] 13 mg/dL Normal 8-23 [facility] Comment on above: Performed By: #### F DP, CDP, BMPX, PRCAL, HIVCMB, HP4AB, ANAX, ANRFX, DIME, FIB #### [facility] [address] [place] [phone] Male Infertility Specialist: Mo Feliciano MD Anion gap [Moles/Vol] 15 mmol/L Normal 9-16 [facility] Comment on above: Performed By: #### B MPX, CDP #### [facility] [address] [place] [phone] Male Infertility Specialist: Mo Feliciano MD Calcium [Mass/Vol] 9.2 mg/dL Normal 8.6-10.4 [facility] Comment on above: Performed By: #### B MPX, CDP #### [facility] [address] [place] [address] [phone] Male Infertility Specialist: Mo Feliciano MD Chloride [Moles/Vol] 101 mmol/L Normal 98-107 [facility] Comment on above: Performed By: #### B MPX, CDP #### [facility] [address] [place] [phone] Male Infertility Specialist: Mo Feliciano MD CO2 [Moles/Vol] 20 mmol/L Normal 20-31 [facility] Comment on above: Performed By: #### B MPX, CDP #### [facility] [address] [place] [phone] Male Infertility Specialist: Mo Feliciano MD Creatinine [Mass/Vol] 0.6 mg/dL Low 0.7-1.2 [facility] Comment on above: Performed By: #### B MPX, CDP #### [facility] [employer] [address] [place] [phone] Male Infertility Specialist: Mo Feliciano MD Glucose [Mass/Vol] 112 mg/dL High 74-99 [facility] Comment on above: Performed By: #### B MPX, CDP #### [facility] [employer] [address] [place] [phone] Male Infertility Specialist: Mo Feliciano MD Potassium [Moles/Vol] 3.9 mmol/L Normal 3.7-5.3 [facility] Comment on above: Performed By: #### B MPX, CDP #### [facility] [address] [place] [phone] Male Infertility Specialist: Mo Feliciano MD Sodium [Moles/Vol] 136 mmol/L Normal 136-145 [facility] Comment on above: Performed By: #### B MPX, CDP #### [facility] [employer] [address] [place] [phone] Male Infertility Specialist: Mo Feliciano MD Urea nitrogen [Mass/Vol] 13 mg/dL Normal 8-23 [facility] Comment on above: Performed By: #### B MPX, CDP #### [facility] [employer] [address] [place] [phone] Male Infertility Specialist: Mo Feliciano MD Basic Metabolic Panel w/ Ref jorje to MGon 01-22-2025 Anion gap [Moles/Vol] 15 mmol/L 9 - 16 mmol/L [facility] [employer] Calcium [Mass/Vol] 9.3 mg/dL 8.6 - 10. 4 mg/dL [facility] Chloride [Moles/Vol] 101 mmol/L 98 - 10 7 mmol/L [facility] [employer] [facility] [employer] CO2 [Moles/Vol] 19 mmol/L Low 20 - 31 mmol/L [facility] Creatinine [Mass/Vol] 0.6 mg/dL Low 0.7 - 1.2 mg/dL [facility] Est, Glom Filt Rate - PINF [employer] Comment on above: These results are not intended for use [...] following therapy that affects renal tubular secretion. Glucose [Mass/Vol] 111 mg/dL High 74 - 99 mg/dL [facility] Interpretation and review of laboratory results Abnormal [facility] Potassium [Moles/Vol] 3.9 mmol/L 3.7 - 5.3 mmol/L [facility] Sodium [Moles/Vol] 135 mmol/L Low 136 - 145 mmol/L [facility] Urea nitrogen [Mass/Vol] 13 mg/dL 8 - 23 mg/dL [facility] Est, Glom Filt Rate - PINF [facility] [employer] Comment on above: These results are not intended for use [...] following therapy that affects renal tubular secretion. C-Reactive Proteinon 05-24-2 025 CRP High sensitivity method [Mass/Vol] 38.0 mg/L High 0.0 - 5.0 mg/L [facility] CRP [Mass/Vol] 38.0 mg/L High 0.0-5.0 [facility] Comment on above: Performed By: #### B MPX, SHARATH #### [facility] [address] [phone] Male Infertility Specialist: Mo Feliciano MD CBC with Auto Differentialon 01-22-2025 Basophils (Bld) [#/Vol] [facility] Basophils/100 WBC (Bld) 0 % 0 - 2 % [facility] Eosinophils (Bld) [#/Vol] [facility] Eosinophils/100 WBC (Bld) 0 % Low 1 - 4 % [facility] Erythrocyte distribution width (RBC) [Ratio] 13 % 11.8 - 14.4 % [facility] Hematocrit (Bld) [Volume fraction] 42.8 % 40.7 - 50.3 % [facility] Hemoglobin (Bld) [Mass/Vol] 13.9 g/dL 13.0 - 17.0 g/dL [facility] Immature granulocytes (Bld) [#/Vol] 0.03 10*3/uL [facility] Immature granulocytes/100 WBC (Bld) 1 % High 0 [facility] Interpretation and review of laboratory results Abnormal [facility] Lymphocytes/100 WBC (Bld) 15 % Low 24 - 43 % [facility] Lymphocytes/100 WBC (Bld) 0.75 % Low [facility] MCH (RBC) [Entitic mass] 28.5 pg 25.2 - 33.5 pg [facility] MCHC (RBC) [Mass/Vol] 32.5 g/dL 28.4 - 34.8 g/dL [facility] MCV (RBC) [Entitic vol] 87.9 fL 82.6 - 102.9 fL [facility] Monocytes/100 WBC (Bld) 6 % 3 - 12 % [facility] Monocytes/100 WBC (Bld) 0.33 % [facility] Neutrophils/100 WBC (Bld) 78 % High 36 - 65 % [facility] Nucleated RBC/100 WBC (Bld) [Ratio] 0 % 0.0 per 100 WBC [facility] Platelet, Fluorescence Critically low [facility] Platelets (Bld) [#/Vol] See Reflexed IPF Result [facility] Platelets reticulated/100 platelets Auto (Bld) 0 % Low 1.1 - 10.3 % [facility] RBC (Bld) [#/Vol] 4.87 10*6/uL 4.21 - 5.7 7 m/uL [facility] Segmented neutrophils/100 WBC (Bld) 4.02 % [facility] WBC other (Bld) [#/Vol] 5.1 [facility] Basophils (Bld) [#/Vol] 0.03 10*3/uL [facility] Basophils/100 WBC (Bld) 0 % 0 - 2 % [facility] Eosinophils (Bld) [#/Vol] 0.04 10*3/uL [facility] Eosinophils/100 WBC (Bld) 1 % 1 - 4 % [facility] Erythrocyte distribution width (RBC) [Ratio] 12.9 % 11.8 - 14.4 % [facility] Hematocrit (Bld) [Volume fraction] 40.9 % 40.7 - 50.3 % [facility] Hemoglobin (Bld) [Mass/Vol] 13.4 g/dL 13.0 - 17.0 g/dL [facility] Immature granulocytes (Bld) [#/Vol] 0.03 10*3/uL [facility] Immature granulocytes/100 WBC (Bld) 0 % 0 [facility] Interpretation and review of laboratory results Abnormal [facility] Lymphocytes/100 WBC (Bld) 22 % Low 24 - 43 % [facility] Lymphocytes/100 WBC (Bld) 1.57 % [facility] MCH (RBC) [Entitic mass] 28.7 pg 25.2 - 33.5 pg [facility] MCHC (RBC) [Mass/Vol] 32.8 g/dL 28.4 - 34.8 g/dL [facility] MCV (RBC) [Entitic vol] 87.6 fL 82.6 - 102.9 fL [facility] Monocytes/100 WBC (Bld) 11 % 3 - 12 % [facility] Monocytes/100 WBC (Bld) 0.79 % [facility] Neutrophils/100 WBC (Bld) 66 % High 36 - 65 % [facility] Nucleated RBC/100 WBC (Bld) [Ratio] 0 % 0.0 per 100 WBC [facility] Platelet, Fluorescence 2 Critically low [facility] Platelets (Bld) [#/Vol] See Reflexed IPF Result [facility] Platelets reticulated/100 platelets Auto (Bld) 4.8 % 1.1 - 10.3 % [facility] RBC (Bld) [#/Vol] 4.67 10*6/uL 4.21 - 5.7 7 m/uL [facility] Segmented neutrophils/100 WBC (Bld) 4.73 % [facility] WBC other (Bld) [#/Vol] 7.2 [facility] Basophils (Bld) [#/Vol] 0.03 10*3/uL [facility] Basophils/100 WBC (Bld) 0 % 0 - 2 % [facility] Eosinophils (Bld) [#/Vol] [facility] Eosinophils/100 WBC (Bld) 0 % Low 1 - 4 % [facility] Erythrocyte distribution width (RBC) [Ratio] 12.8 % 11.8 - 14.4 % [facility] Hematocrit (Bld) [Volume fraction] 40.6 % Low 40.7 - 50.3 % [facility] Hemoglobin (Bld) [Mass/Vol] 13.6 g/dL 13.0 - 17.0 g/dL [facility] Immature granulocytes (Bld) [#/Vol] 0.05 10*3/uL [facility] Immature granulocytes/100 WBC (Bld) 1 % High 0 [facility] Interpretation and review of laboratory results Abnormal [facility] Lymphocytes/100 WBC (Bld) 19 % Low 24 - 43 % [facility] Lymphocytes/100 WBC (Bld) 1.6 % [facility] MCH (RBC) [Entitic mass] 28.9 pg 25.2 - 33.5 pg [facility] MCHC (RBC) [Mass/Vol] 33.5 g/dL 28.4 - 34.8 g/dL [facility] MCV (RBC) [Entitic vol] 86.4 fL 82.6 - 102.9 fL [facility] Monocytes/100 WBC (Bld) 11 % 3 - 12 % [facility] Monocytes/100 WBC (Bld) 0.94 % [facility] Neutrophils/100 WBC (Bld) 68 % High 36 - 65 % [facility] Nucleated RBC/100 WBC (Bld) [Ratio] 0 % 0.0 per 100 WBC [facility] Platelet, Fluorescence Critically low [facility] Platelets (Bld) [#/Vol] See Reflexed IPF Result [facility] Platelets reticulated/100 platelets Auto (Bld) 0 % Low 1.1 - 10.3 % [facility] RBC (Bld) [#/Vol] 4.7 10*6/uL 4.21 - 5.7 7 m/uL [facility] Segmented neutrophils/100 WBC (Bld) 5.63 % [facility] WBC other (Bld) [#/Vol] 8.3 [facility] CBC with Diffon 01-22-2025 Platelet, Fluoresc. <2 Critically low 138-453 [facility] Comment on above: Performed By: #### G HLTEG #### [facility] [place] [address] Male Infertility Specialist: Mo Feliciano MD PLT, Immature Fract. 0.0 % Low 1.1-10.3 [facility] Comment on above: Performed By: #### G HLTEG #### [facility] [place] [address] Male Infertility Specialist: Mo Feliciano MD Abs. Basophil <0.03 Normal 0.00-0.20 [facility] Comment on above: Performed By: #### G HLTEG #### [address] [address] Male Infertility Specialist: Mo Feliciano MD Abs. Eosinophil <0.03 Normal 0.00-0.44 [facility] Comment on above: Performed By: #### G HLTEG #### [address] [address] Male Infertility Specialist: Mo Feliciano MD Abs.Imm.Granulocyte 0.03 k/uL Normal 0.00-0.30 [facility] Comment on above: Performed By: #### G HLTEG #### [address] [address] Male Infertility Specialist: Mo Feliciano MD Abs.Neutrophil (Seg) 4.02 k/uL Normal 1.50-8.10 [facility] Comment on above: Performed By: #### G HLTEG #### [address] [address] Male Infertility Specialist: oM Feliciano MD Basophils/100 WBC (Bld) 0 % Normal 0-2 [facility] Comment on above: Performed By: #### G HLTEG #### [address] [address] Male Infertility Specialist: Mo Feliciano MD Eosinophils/100 WBC (Bld) 0 % Low 1-4 [facility] Comment on above: Performed By: #### G HLTEG #### [address] [address] Male Infertility Specialist: Mo Feliciano MD Erythrocyte distribution width (RBC) [Ratio] 13.0 % Normal 11.8-14.4 [facility] Comment on above: Performed By: #### G HLTEG #### [address] [address] Male Infertility Specialist: Mo Feliciano MD Hematocrit (Bld) [Volume fraction] 42.8 % Normal 40.7-50.3 [facility] Comment on above: Performed By: #### G HLTEG #### [address] [address] Male Infertility Specialist: Mo Feliciano MD Hemoglobin (Bld) [Mass/Vol] 13.9 g/dL Normal 13.0-17.0 [facility] Comment on above: Performed By: #### G HLTEG #### [address] [address] Male Infertility Specialist: Mo Feliciano MD Immature granulocytes/100 WBC (Bld) 1 % High 0 [facility] Comment on above: Performed By: #### G HLTEG #### [address] [address] Male Infertility Specialist: Mo Feliciano MD Lymphocytes (Bld) [#/Vol] 0.75 10*3/uL Low 1.10-3.70 [facility] Comment on above: Performed By: #### G HLTEG #### [address] [address] Male Infertility Specialist: Mo Feliciano MD Lymphocytes/100 WBC (Bld) 15 % Low 24-43 [facility] Comment on above: Performed By: #### G HLTEG #### [address] [address] Male Infertility Specialist: Mo Feliciano MD MCH (RBC) [Entitic mass] 28.5 pg Normal 25.2-33.5 [facility] Comment on above: Performed By: #### G HLTEG #### [address] [address] Male Infertility Specialist: Mo Feliciano MD MCHC (RBC) [Mass/Vol] 32.5 g/dL Normal 28.4-34.8 [facility] Comment on above: Performed By: #### G HLTEG #### [address] [address] Male Infertility Specialist: Mo Feliciano MD MCV (RBC) [Entitic vol] 87.9 fL Normal 82.6-102.9 [facility] Comment on above: Performed By: #### G HLTEG #### [address] [address] Male Infertility Specialist: Mo Feliciano MD Monocytes (Bld) [#/Vol] 0.33 10*3/uL Normal 0.10-1.20 [facility] Comment on above: Performed By: #### G HLTEG #### [address] [address] Male Infertility Specialist: Mo Feliciano MD Monocytes/100 WBC (Bld) 6 % Normal 3-12 [facility] Comment on above: Performed By: #### G HLTEG #### [address] [address] Male Infertility Specialist: Mo Feliciano MD Neutrophil (Seg) 78 % High 36-65 [facility] Comment on above: Performed By: #### G HLTEG #### [address] [address] Male Infertility Specialist: Mo Feliciano MD NRBC Automated 0.0 per 100 WBC Normal 0.0 [facility] Comment on above: Performed By: #### G HLTEG #### [address] [address] Male Infertility Specialist: Mo Feliciano MD Platelet Count See Reflexed IPF Result Normal 138-453 [facility] Comment on above: Performed By: #### G HLTEG #### [address] [address] Male Infertility Specialist: Mo Feliciano MD RBC (Bld) [#/Vol] 4.87 10*6/uL Normal 4.21-5.77 [facility] Comment on above: Performed By: #### G HLTEG #### [address] [address] Male Infertility Specialist: Mo Feliciano MD WBC (Bld) [#/Vol] 5.1 10*3/uL Normal 3.5-11.3 [facility] Comment on above: Performed By: #### G HLTEG #### [place] [address] Male Infertility Specialist: Mo Feliciano MD Platelet, Fluoresc. 2 k/uL Critically low 138-453 M [facility] Comment on above: Performed By: #### F DP, CDP, BMPX, PRCAL, HIVCMB, HP4AB, ANAX, ANRFX, DIME, FIB #### [place] [address] Male Infertility Specialist: Mo Feliciano MD PLT, Immature Fract. 4.8 % Normal 1.1-10.3 [facility] Comment on above: Performed By: #### F DP, CDP, BMPX, PRCAL, HIVCMB, HP4AB, ANAX, ANRFX, DIME, FIB #### [address] [address] Male Infertility Specialist: Mo Feliciano MD Abs. Basophil 0.03 k/uL Normal 0.00-0.20 [facility] Comment on above: Performed By: #### F DP, CDP, BMPX, PRCAL, HIVCMB, HP4AB, ANAX, ANRFX, DIME, FIB #### [place] [address] Male Infertility Specialist: Mo Feliciano MD Abs.Imm.Granulocyte 0.03 k/uL Normal 0.00-0.30 [facility] Comment on above: Performed By: #### F DP, CDP, BMPX, PRCAL, HIVCMB, HP4AB, ANAX, ANRFX, DIME, FIB #### [address] [id number] Male Infertility Specialist: Mo Feliciano MD Abs.Neutrophil (Seg) 4.73 k/uL Normal 1.50-8.10 [facility] Comment on above: Performed By: #### F DP, CDP, BMPX, PRCAL, HIVCMB, HP4AB, ANAX, ANRFX, DIME, FIB #### [place] [phone] Male Infertility Specialist: Mo Feliciano MD Basophils/100 WBC (Bld) 0 % Normal 0-2 [facility] Comment on above: Performed By: #### F DP, CDP, BMPX, PRCAL, HIVCMB, HP4AB, ANAX, ANRFX, DIME, FIB #### [place] [address] Male Infertility Specialist: Mo Feliciano MD Eosinophils (Bld) [#/Vol] 0.04 10*3/uL Normal 0.00-0.44 [facility] Comment on above: Performed By: #### F DP, CDP, BMPX, PRCAL, HIVCMB, HP4AB, ANAX, ANRFX, DIME, FIB #### [facility] [employer] [address] [place], [place] [id number] Male Infertility Specialist: Mo Feliciano MD Eosinophils/100 WBC (Bld) 1 % Normal 1-4 [facility] Comment on above: Performed By: #### F DP, CDP, BMPX, PRCAL, HIVCMB, HP4AB, ANAX, ANRFX, DIME, FIB #### [address] [phone] Male Infertility Specialist: Mo Feliciano MD Erythrocyte distribution width (RBC) [Ratio] 12.9 % Normal 11.8-14.4 [facility] Comment on above: Performed By: #### F DP, CDP, BMPX, PRCAL, HIVCMB, HP4AB, ANAX, ANRFX, DIME, FIB #### [place] [phone] Male Infertility Specialist: Mo Feliciano MD Hematocrit (Bld) [Volume fraction] 40.9 % Normal 40.7-50.3 [facility] Comment on above: Performed By: #### F DP, CDP, BMPX, PRCAL, HIVCMB, HP4AB, ANAX, ANRFX, DIME, FIB #### [place] [address] Male Infertility Specialist: Mo Feliciano MD Hemoglobin (Bld) [Mass/Vol] 13.4 g/dL Normal 13.0-17.0 [facility] Comment on above: Performed By: #### F DP, CDP, BMPX, PRCAL, HIVCMB, HP4AB, ANAX, ANRFX, DIME, FIB #### [place] [phone] Male Infertility Specialist: Mo Feliciano MD Immature granulocytes/100 WBC (Bld) 0 % Normal 0 [facility] Comment on above: Performed By: #### F DP, CDP, BMPX, PRCAL, HIVCMB, HP4AB, ANAX, ANRFX, DIME, FIB #### [place] [address] Male Infertility Specialist: Mo Feliciano MD Lymphocytes (Bld) [#/Vol] 1.57 10*3/uL Normal 1.10-3.70 [facility] Comment on above: Performed By: #### F DP, CDP, BMPX, PRCAL, HIVCMB, HP4AB, ANAX, ANRFX, DIME, FIB #### [address] [id number] Male Infertility Specialist: Mo Feliciano MD Lymphocytes/100 WBC (Bld) 22 % Low 24-43 [facility] Comment on above: Performed By: #### F DP, CDP, BMPX, PRCAL, HIVCMB, HP4AB, ANAX, ANRFX, DIME, FIB #### [address] [id number] Male Infertility Specialist: Mo Feliciano MD MCH (RBC) [Entitic mass] 28.7 pg Normal 25.2-33.5 [facility] Comment on above: Performed By: #### F DP, CDP, BMPX, PRCAL, HIVCMB, HP4AB, ANAX, ANRFX, DIME, FIB #### [place] [phone] Male Infertility Specialist: Mo Feliciano MD MCHC (RBC) [Mass/Vol] 32.8 g/dL Normal 28.4-34.8 [facility] Comment on above: Performed By: #### F DP, CDP, BMPX, PRCAL, HIVCMB, HP4AB, ANAX, ANRFX, DIME, FIB #### [place] [phone] Male Infertility Specialist: Mo Feliciano MD MCV (RBC) [Entitic vol] 87.6 fL Normal 82.6-102.9 [facility] Comment on above: Performed By: #### F DP, CDP, BMPX, PRCAL, HIVCMB, HP4AB, ANAX, ANRFX, DIME, FIB #### [address] [phone] Male Infertility Specialist: Mo Feliciano MD Monocytes (Bld) [#/Vol] 0.79 10*3/uL Normal 0.10-1.20 [facility] Comment on above: Performed By: #### F DP, CDP, BMPX, PRCAL, HIVCMB, HP4AB, ANAX, ANRFX, DIME, FIB #### [address] [address] Male Infertility Specialist: Mo Feliciano MD Monocytes/100 WBC (Bld) 11 % Normal 3-12 [facility] Comment on above: Performed By: #### F DP, CDP, BMPX, PRCAL, HIVCMB, HP4AB, ANAX, ANRFX, DIME, FIB #### [address] [address] Male Infertility Specialist: Mo Feliciano MD Neutrophil (Seg) 66 % High 36-65 [facility] Comment on above: Performed By: #### F DP, CDP, BMPX, PRCAL, HIVCMB, HP4AB, ANAX, ANRFX, DIME, FIB #### [address] [address] Male Infertility Specialist: Mo Feliciano MD NRBC Automated 0.0 per 100 WBC Normal 0.0 [facility] Comment on above: Performed By: #### F DP, CDP, BMPX, PRCAL, HIVCMB, HP4AB, ANAX, ANRFX, DIME, FIB #### [address] [address] Male Infertility Specialist: Mo Feliciano MD Platelet Count See Reflexed IPF Result Normal 138-453 [facility] Comment on above: Performed By: #### F DP, CDP, BMPX, PRCAL, HIVCMB, HP4AB, ANAX, ANRFX, DIME, FIB #### [address] [address] Male Infertility Specialist: Mo Feliciano MD RBC (Bld) [#/Vol] 4.67 10*6/uL Normal 4.21-5.77 [facility] Comment on above: Performed By: #### F DP, CDP, BMPX, PRCAL, HIVCMB, HP4AB, ANAX, ANRFX, DIME, FIB #### [address] [address] Male Infertility Specialist: Mo Feliciano MD WBC (Bld) [#/Vol] 7.2 10*3/uL Normal 3.5-11.3 [facility] Comment on above: Performed By: #### F DP, CDP, BMPX, PRCAL, HIVCMB, HP4AB, ANAX, ANRFX, DIME, FIB #### [place] [address] Male Infertility Specialist: Mo Feliciano MD Platelet, Fluoresc. <2 Critically low 138-453 M [facility] Comment on above: Performed By: #### B MPX, CDP #### [place] [address] Male Infertility Specialist: Mo Feliciano MD PLT, Immature Fract. 0.0 % Low 1.1-10.3 [facility] Comment on above: Performed By: #### B MPX, CDP #### [place] [address] Male Infertility Specialist: Mo Feliciano MD Abs. Basophil 0.03 k/uL Normal 0.00-0.20 [facility] Comment on above: Performed By: #### B MPX, CDP #### [address] [address] Male Infertility Specialist: Mo Feliciano MD Abs. Eosinophil <0.03 Normal 0.00-0.44 [facility] Comment on above: Performed By: #### B MPX, CDP #### [address] [address] Male Infertility Specialist: Mo Feliciano MD Abs.Imm.Granulocyte 0.05 k/uL Normal 0.00-0.30 [facility] Comment on above: Performed By: #### B MPX, CDP #### [address] [address] Male Infertility Specialist: Mo Feliciano MD Abs.Neutrophil (Seg) 5.63 k/uL Normal 1.50-8.10 [facility] Comment on above: Performed By: #### B MPX, CDP #### [address] [address] Male Infertility Specialist: Mo Feliciano MD Basophils/100 WBC (Bld) 0 % Normal 0-2 [facility] Comment on above: Performed By: #### B MPX, CDP #### [address] [address] Male Infertility Specialist: Mo Feliciano MD Eosinophils/100 WBC (Bld) 0 % Low 1-4 [facility] Comment on above: Performed By: #### B MPX, CDP #### [address] [address] Male Infertility Specialist: Mo Feliciano MD Erythrocyte distribution width (RBC) [Ratio] 12.8 % Normal 11.8-14.4 [facility] Comment on above: Performed By: #### B MPX, CDP #### [address] [address] Male Infertility Specialist: Mo Feliciano MD Hematocrit (Bld) [Volume fraction] 40.6 % Low 40.7-50.3 [facility] Comment on above: Performed By: #### B MPX, CDP #### [address] [address] Male Infertility Specialist: Mo Feliciano MD Hemoglobin (Bld) [Mass/Vol] 13.6 g/dL Normal 13.0-17.0 [facility] Comment on above: Performed By: #### B MPX, CDP #### [facility] [employer] [address] [place] [address] Male Infertility Specialist: Mo Feliciano MD Immature granulocytes/100 WBC (Bld) 1 % High 0 [facility] Comment on above: Performed By: #### B MPX, CDP #### [address] [address] Male Infertility Specialist: Mo Feliciano MD Lymphocytes (Bld) [#/Vol] 1.60 10*3/uL Normal 1.10-3.70 [facility] Comment on above: Performed By: #### B MPX, CDP #### [facility] [employer] [address] [place] [address] Male Infertility Specialist: Mo Feliciano MD Lymphocytes/100 WBC (Bld) 19 % Low 24-43 [facility] Comment on above: Performed By: #### B MPX, CDP #### [address] [address] Male Infertility Specialist: Mo Feliciano MD MCH (RBC) [Entitic mass] 28.9 pg Normal 25.2-33.5 [facility] Comment on above: Performed By: #### B MPX, CDP #### [facility] [employer] [address] [place] [address] Male Infertility Specialist: Mo Feliciano MD MCHC (RBC) [Mass/Vol] 33.5 g/dL Normal 28.4-34.8 [facility] Comment on above: Performed By: #### B MPX, CDP #### [facility] [employer] [address] [place] [address] Male Infertility Specialist: Mo Feliciano MD MCV (RBC) [Entitic vol] 86.4 fL Normal 82.6-102.9 [facility] Comment on above: Performed By: #### B MPX, CDP #### [address] [address] Male Infertility Specialist: Mo Feliciano MD Monocytes (Bld) [#/Vol] 0.94 10*3/uL Normal 0.10-1.20 [facility] Comment on above: Performed By: #### B MPX, CDP #### [address] [address] Male Infertility Specialist: Mo Feliciano MD Monocytes/100 WBC (Bld) 11 % Normal 3-12 [facility] Comment on above: Performed By: #### B MPX, CDP #### [address] [address] Male Infertility Specialist: Mo Feliciano MD Neutrophil (Seg) 68 % High 36-65 [facility] Comment on above: Performed By: #### B MPX, CDP #### [address] [address] Male Infertility Specialist: Mo Feliciano MD NRBC Automated 0.0 per 100 WBC Normal 0.0 [facility] Comment on above: Performed By: #### B MPX, CDP #### [address] [address] Male Infertility Specialist: Mo Feliciano MD Platelet Count See Reflexed IPF Result Normal 138-453 [facility] Comment on above: Performed By: #### B MPX, CDP #### [address] [address] Male Infertility Specialist: Mo Feliciano MD RBC (Bld) [#/Vol] 4.70 10*6/uL Normal 4.21-5.77 [facility] Comment on above: Performed By: #### B MPX, CDP #### [address] [address] Male Infertility Specialist: Mo Feliciano MD WBC (Bld) [#/Vol] 8.3 10*3/uL Normal 3.5-11.3 [facility] Comment on above: Performed By: #### B MPX, CDP #### [facility] [address] [place], [place] [phone] Male Infertility Specialist: Mo Feliciano MD CKon 01-22-2025 CK [Catalytic activity/Vol] 62 U/L 39 - 308 U/L [facility] CT Chest W contrast Eduardo Radiology Study observation (narrative) [facility] Creatine Kinaseon 01-22-2025 CK [Catalytic activity/Vol] 62 U/L Normal 39-308 [facility] Comment on above: Performed By: #### B MPX, CDP #### [facility] [employer] [facility] [place], [place] [phone] Male Infertility Specialist: Mo Feliciano MD D-Dimer Teston 01-22-2025 D-Dimer Test 2.86 ug/mL FEU High 0.00-0.57 [facility] Comment on above: Result Comment: When combined with a low [...] patients with distal DVT. Performed By: #### F DP, CDP, BMPX, PRCAL, HIVCMB, HP4AB, ANAX, ANRFX, DIME, FIB #### [facility] [address] [place], [place] [phone] Male Infertility Specialist: Mo Feliciano MD D-Dimer, Quantitativeon 05-2 Fibrin D-dimer FEU (PPP) [Mass/Vol] 2.86 High [facility] Comment on above: When combined with a low clinical probability, [...] more prevalent in patients with distal DVT. Interpretation and review of laboratory results Abnormal [facility] DIRECT ANTIGLOBULIN TESTon 0 01-22-2025 Direct antiglobulin test.poly specific reagent Ql (RBC) Negative [facility] Direct Antiglobulin Teston 0 01-22-2025 Direct Antiglobulin Test Negative Normal [facility] Comment on above: Performed By: #### B MPX, CDP #### [facility] [address] [place] [address] Male Infertility Specialist: Mo Feliciano MD Fibrin Split Prodon 01-23-20 25 Fibrin Split Prod >5 High <5 [facility] Comment on above: Result Comment: <20 Performed By: #### F DP, CDP, BMPX, PRCAL, HIVCMB, HP4AB, ANAX, ANRFX, DIME, FIB #### [address] [phone] Male Infertility Specialist: Mo Feliciano MD Fibrin Split Productson 12-31 FDP >5 High NINF - 5 ug/mL [facility] Comment on above: <20 Interpretation and review of laboratory results Abnormal [facility] Fibrinogenon 01-22-2025 Fibrinogen Coag (PPP) [Mass/Vol] 681 mg/dL High 203 - 521 mg/dL [facility] Interpretation and review of laboratory results Abnormal [facility] Fibrinogen 681 mg/dL High 203-521 [facility] Comment on above: Performed By: #### F DP, CDP, BMPX, PRCAL, HIVCMB, HP4AB, ANAX, ANRFX, DIME, FIB #### [address] [phone] Male Infertility Specialist: Mo Feliciano MD Gl Hemostasis TEG w/Lysison 01-22-2025 Fibrinogen, Func TEG 39.8 mm High 15.0-32.0 [facility] Comment on above: Performed By: #### G HLTEG #### [facility] [employer] [address] [place] [id number] Male Infertility Specialist: Mo Feliciano MD LY30 (Lysis) TEG 0.0 % Normal 0.0-2.6 [facility] Comment on above: Performed By: #### G HLTEG #### [facility] [employer] [address] [place] [address] [phone] Male Infertility Specialist: Mo Feliciano MD MA Rapid TEG <40.0 Low 52.0-70 [facility] Comment on above: Performed By: #### G HLTEG #### [facility] [address] [place] [phone] Male Infertility Specialist: Mo Feliciano MD R(Reaction Time) TEG 14.7 min High 4.6-9.1 [facility] Comment on above: Performed By: #### G HLTEG #### [facility] [address] [place] [address] [phone] Male Infertility Specialist: Mo Feliciano MD Glucose (POC)on 01-22-2025 Glucose [Mass/Vol] 126 mg/dL High 74-100 [facility] HIV Ag/Abon 01-22-2025 HIV Ag/Ab Non-Reactive Normal NR [facility] Comment on above: Result Comment: No l aboratory evidence of HIV infection. If acute HIV infection is suspected, consider testing for HIV-1 RNA. Performed By: #### G HLTEG #### [address] [phone] Male Infertility Specialist: Mo Feliciano MD HIV Screenon 01-22-2025 HIV 1+2 Ab+HIV1 p24 Ag IA Ql Non-Reactive NONREACTIVE [facility] Comment on above: No laboratory eviden ce of HIV infection. If acute HIV infection is suspected, consider testing for HIV-1 RNA. [facility] [employer] Haptoglobinon 01-22-2025 Haptoglobin [Mass/Vol] 381 mg/dL High 30 - 200 mg/dL [facility] Haptoglobin 381 mg/dL High 30-200 [facility] Comment on above: Performed By: #### B MPX, CDP #### [facility] [employer] [address] [place] [address] [phone] Male Infertility Specialist: Mo Feliciano MD Hepatic Function Panelon Albumin [Mass/Vol] 3.8 g/dL 3.5 - 5.2 g/dL [facility] Albumin/Globulin [Mass ratio] 0.9 {ratio} Low 1.0 - 2.5 [facility] ALP [Catalytic activity/Vol] 84 U/L 40 - 129 U/L [facility] ALT [Catalytic activity/Vol] 36 U/L 10 - 50 U/L [facility] AST [Catalytic activity/Vol] 28 U/L 10 - 50 U/L [facility] Bilirubin [Mass/Vol] 0.5 mg/dL 0.0 - 1 .2 mg/dL [facility] Bilirubin.direct [Mass/Vol] 0.3 mg/dL High 0.0 - 0.2 mg/dL [facility] Bilirubin.indirect [Mass/Vol] 0.2 mg/dL 0.0 - 1.0 mg/dL [facility] Globulin (S) [Mass/Vol] 4.2 g/dL [facility] Protein [Mass/Vol] 8 g/dL 6.6 - 8.7 g/dL [facility] Hepatitis Acute [facility] 01-22 Hep A Ab,IgM Non-Reactive Normal [facility] Comment on above: Performed By: #### B MPX, CDP #### [facility] [address] [place], [place] [phone] Male Infertility Specialist: Mo Feliciano MD Hep B Core Ab,IgM Non-Reactive Normal [facility] Comment on above: Performed By: #### B MPX, CDP #### [facility] [address] [place] [phone] Male Infertility Specialist: Mo Feliciano MD Hep B Surf Ag Non-Reactive Normal [facility] Comment on above: Performed By: #### B MPX, CDP #### [address] [address] Male Infertility Specialist: Mo Feliciano MD Hep C Ab Non-Reactive Normal [facility] Comment on above: Result Comment: The hepatitis C procedure used [...] recommended by ordering HCV RNA by PCR. Performed By: #### B MPX, CDP #### [facility] [address] [place] [id number] Male Infertility Specialist: Mo Feliciano MD Hepatitis Panel, Acuteon HAV IgM IA Ql Non-Reactive NONREACTIVE [facility] HBV core IgM IA Ql Non-Reactive NONREACTIVE [facility] HBV surface Ag IA Ql Non-Reactive NONREACTIVE [facility] HCV Ab IA Ql Non-Reactive NONREACTIVE [facility] Comment on above: The hepatitis C procedure used in our [...] recommended by ordering HCV RNA by PCR. [facility] Lactate Dehydrogenaseon 12-31 LDH [Catalytic activity/Vol] 193 U/L Normal 135-225 [facility] Comment on above: Performed By: #### B MPX, CDP #### [facility] [address] [place] [address] [phone] Male Infertility Specialist: Mo Feliciano MD Lactic Acidon 01-22-2025 Lactic Acid, Whole Blood 1.3 mmol/L 0.7 - 2.1 mmol/L [facility] Lactic Acid,Whole Bl 1.3 mmol/L Normal 0.7-2.1 [facility] Comment on above: Performed By: #### B MPX, CDP #### [facility] [address] [place] [address] [phone] Male Infertility Specialist: Mo Feliciano MD Liver Profileon 01-22-2025 Albumin [Mass/Vol] 3.8 g/dL Normal 3.5-5.2 [facility] Comment on above: Performed By: #### B MPX, CDP #### [facility] [address] [place] [address] Male Infertility Specialist: Mo Feliciano MD Albumin/Glob Ratio 0.9 Low 1.0-2.5 [facility] Comment on above: Performed By: #### B MPX, CDP #### [facility] [address] [place] [address] Male Infertility Specialist: Mo Feliciano MD Alkaline Phos 84 U/L Normal 40-129 [facility] Comment on above: Performed By: #### B MPX, CDP #### [facility] [address] [place] [phone] Male Infertility Specialist: Mo Feliciano MD ALT [Catalytic activity/Vol] 36 U/L Normal 10-50 [facility] Comment on above: Performed By: #### B MPX, CDP #### [facility] [employer] [address] [place] [address] Male Infertility Specialist: Mo Feliciano MD AST [Catalytic activity/Vol] 28 U/L Normal 10-50 [facility] Comment on above: Performed By: #### B MPX, CDP #### [facility] [address] [place] [address] Male Infertility Specialist: Mo Feliciano MD Bilirubin [Mass/Vol] 0.5 mg/dL Normal 0.0-1.2 [facility] Comment on above: Performed By: #### B MPX, CDP #### [facility] [address] [place] [address] Male Infertility Specialist: Mo Feliciano MD Bilirubin, Indirect 0.2 mg/dL Normal 0.0-1.0 [facility] Comment on above: Performed By: #### B MPX, CDP #### [facility] [address] [place] [address] Male Infertility Specialist: Mo Feliciano MD Bilirubin.indirect [Mass/Vol] 0.3 mg/dL High 0.0-0.2 [facility] Comment on above: Performed By: #### B MPX, CDP #### [facility] [address] [place] [address] Male Infertility Specialist: Mo Feliciano MD Globulin (S) [Mass/Vol] 4.2 g/dL Normal [facility] Comment on above: Performed By: #### B MPX, CDP #### [facility] [address] [place] [address] Male Infertility Specialist: Mo Feliciano MD Protein [Mass/Vol] 8.0 g/dL Normal 6.6-8.7 [facility] Comment on above: Performed By: #### B MPX, CDP #### [facility] [address] [place] [id number] Male Infertility Specialist: Mo Feliciano MD MRSA DNA Probe, Nasalon 12-31 MRSA, DNA, Nasal Negative NEGATIVE [facility] Comment on above: NEGATIVE: MRSA DNA n ot detected by nucleic acid amplification. Results should be used as an adjunct to nosocomial control efforts to identify patients needing enhanced precautions. The test is not intended to identify patients with staphylococcal infections. Results should not be used to guide or monitor treatment for MRSA infections. Specimen Description .NASAL SWAB [facility] MRSA, DNA, Nasalon MRSA, DNA, Nasal Negative Normal NEG [facility] Comment on above: Result Comment: NEGA TIVE: MRSA DNA not detected by nucleic acid amplification. Results should be used as an adjunct to nosocomial control efforts to identify patients needing enhanced precautions. The test is not intended to identify patients with staphylococcal infections. Results should not be used to guide or monitor treatment for MRSA infections. Performed By: #### F DP, CDP, BMPX, PRCAL, HIVCMB, HP4AB, ANAX, ANRFX, DIME, FIB #### [facility] [place] [address] Male Infertility Specialist: Mo Feliciano MD Specimen Description .NASAL SWAB Normal [facility] Comment on above: Performed By: #### F DP, CDP, BMPX, PRCAL, HIVCMB, HP4AB, ANAX, ANRFX, DIME, FIB #### [facility] [place] [address] Male Infertility Specialist: Mo Feliciano MD Microscopic Urinalysison Bacteria LM Ql (Urine sed) None None [facility] Casts LM.LPF (Urine sed) [#/Area] None Reference range defined for non-centrifuged specimen. [facility] Epithelial cells LM.HPF (Urine sed) [#/Area] None [facility] RBC LM.HPF (Urine sed) [#/Area] 10 TO 20 [facility] Comment on above: Reference range defi sapna for non-centrifuged specimen. WBC LM.HPF (Urine sed) [#/Area] None [facility] Myoglobinon 01-22-2025 Myoglobin [Mass/Vol] 27 ng/mL Low 28-72 [facility] Comment on above: Performed By: #### B MPX, CDP #### [facility] [address] [place], [place] [phone] Male Infertility Specialist: Mo Feliciano MD Myoglobin, Bloodon Myoglobin [Mass/Vol] 27 ng/mL Low 28 - 72 ng/mL B [facility] No Panel Informationon 01-22 Interpretation and review of laboratory results Abnormal [facility] Interpretation and review of laboratory results Abnormal [facility] Interpretation and review of laboratory results Abnormal [facility] POCT Glucoseon 01-22-2025 Glucose [Mass/Vol] 126 mg/dL High 74 - 100 mg/dL [facility] PTon 01-22-2025 INR Coag (PPP) [Relative time] 1.1 {INR} Normal [facility] Comment on above: Result Comment: Therapeutic Range: Moderate Anticoagulant Intensity: INR = 2.0-3.0 High Anticoagulant Intensity: INR = 2.5-3.5 Performed By: #### F DP, CDP, BMPX, PRCAL, HIVCMB, HP4AB, ANAX, ANRFX, DIME, FIB #### [facility] [address], [place] [phone] Male Infertility Specialist: Mo Feliciano MD PT Coag (PPP) [Time] 14.2 s Normal 11.7-14.9 [facility] Comment on above: Performed By: #### F DP, CDP, BMPX, PRCAL, HIVCMB, HP4AB, ANAX, ANRFX, DIME, FIB #### [facility] [address], [place] [phone] Male Infertility Specialist: Mo Feliciano MD Portable XR Chest AP single viewon 01-22-2025 No acute pulmonary findings. [facility] CONSOLIDATED EXAMINATION: ONE XRAY VIEW OF THE CHEST 01/22/2025 10:57 am COMPARISON: None. HISTORY: ORDERING SYSTEM PROVIDED HISTORY: To look for pnemonia TECHNOLOGIST PROVIDED HISTORY: To look for pnemonia FINDINGS: Lungs: Clear. Pleura: No effusion or pneumothorax. Cardiomediastinal silhouette: Normal contours. Bones: No acute bony findings. Soft tissues: Normal. [facility] CONSOLIDATED Bayron Hermosillo, - 01/22/2025 EXAMINATION: ONE XRAY VIEW OF THE CHEST 01/22/2025 10:57 am COMPARISON: None. HISTORY: ORDERING SYSTEM PROVIDED HISTORY: To look for pnemonia TECHNOLOGIST PROVIDED HISTORY: To look for pnemonia FINDINGS: Lungs: Clear. Pleura: No effusion or pneumothorax. Cardiomediastinal silhouette: Normal contours. Bones: No acute bony findings. Soft tissues: Normal. IMPRESSION: No acute pulmonary findings. [facility] Radiology Study observation (narrative) [facility] Portable XR Chest AP single viewOrdered By: Bayron Hermosillo on 01-22-2025 [facility] Work Phone: Procalcitoninon 01-22-2025 Procalcitonin [Mass/Vol] 0.06 ng/mL 0.00 - 0.09 ng/mL [facility] Comment on above: Suspected Sepsis: <0.50 ng/mL Low likelihood of [...] entered into the Change in Procalcitonin Calculator (www.jsptbw-hjv-uahtckqcbx.Connectivity) to determine the patient's Mortality Risk Prognosis In healthy neonates, plasma Procalcitonin (PCT) concentrations increase gradually after , reaching peak values at about 24 hours of age then decrease to normal values below 0.5 ng/mL by 48-72 hours of age. Procalcitonin 0.06 ng/mL Normal 0.00-0.09 [facility] Comment on above: Result Comment: Suspected Sepsis: <0.50 ng/mL Low [...] entered into the Change in Procalcitonin Calculator (www.zsoary-pjb-sykqqkjhon.Connectivity) to determine the patient's Mortality Risk Prognosis In healthy neonates, plasma Procalcitonin (PCT) concentrations increase gradually after , reaching peak values at about 24 hours of age then decrease to normal values below 0.5 ng/mL by 48-72 hours of age. Performed By: #### F DP, CDP, BMPX, PRCAL, HIVCMB, HP4AB, ANAX, ANRFX, DIME, FIB #### [facility] [address] [place] [id number] Male Infertility Specialist: Mo Feliciano MD Protime-INRon 01-22-2025 INR Coag (PPP) [Relative time] 1.1 {INR} [facility] Comment on above: Therapeutic Range: Moderate Anticoagulant Intensity: INR = 2.0-3.0 High Anticoagulant Intensity: INR = 2.5-3.5 PT Coag (PPP) [Time] 14.2 s [facility] Retic Counton 01-22-2025 Absolute Retic 0.039 M/uL Normal 0.030-0.080 [facility] Comment on above: Performed By: #### B MPX, CDP #### [facility] [address] [place] [address] Male Infertility Specialist: Mo Feliciano MD IRF 17.0 % Normal 2.7-18.3 [facility] Comment on above: Performed By: #### B MPX, CDP #### [facility] [address] [place] [address] Male Infertility Specialist: Mo Feliciano MD Retic Count 0.8 % Normal 0.5-1.9 [facility] Comment on above: Performed By: #### B MPX, CDP #### [facility] [address] [place] [address] Male Infertility Specialist: Mo Feliciano MD Retic Hemoglobin 29.9 pg Normal 28.2-35.7 [facility] Comment on above: Performed By: #### B MPX, CDP #### [facility] [address] [place] [address] Male Infertility Specialist: Mo Feliciano MD Reticulocyteson 05-24-2025 Immature reticulocytes/Total reticulocytes (Bld) 17.0 % 2.7 - 18.3 % [facility] Retic Hemoglobin 29.9 pg 28.2 - 35.7 pg [facility] Reticulocytes (Bld) [#/Vol] 0.039 10*3/uL [facility] Reticulocytes/100 RBC (Bld) 0.8 % 0.5 - 1.9 % [facility] SPECT Liver and Spleenon 1. Unremarkable righ t upper quadrant ultrasound. 2. Normal spleen. [facility] CONSOLIDATED EXAMINATION: RIGHT UPPER QUADRANT ULTRASOUND 01/22/2025 8:30 [...] is normal in size, measuring 9.2 cm. [facility] CONSOLID[facility] Mary Erwin MD - 01/23/2025 EXAMINATION: RIGHT [...] right upper quadrant ultrasound. 2. Normal spleen. [facility] Radiology Study observation (narrative) [facility] SPECT Liver and SpleenOrdere d By: Mary Rip on 01-22-2025 [facility] Work Phone: Sedimentation Rateon 025 ESR Photometric method (Bld) [Velocity] 119 High [facility] Interpretation and review of laboratory results Abnormal [facility] Sedimentation Rate 119 mm/Hr High 0-20 [facility] Comment on above: Performed By: #### B MPX, CDP #### [facility] [address] [place], [place] [phone] Male Infertility Specialist: Mo Feliciano MD Surgical Pathology Reporton 01-22-2025 Surgical Pathology Report (NOTE) [id number] [facility] ANATOMIC PATHOLOGY [address] [place] [id number] SURGICAL PATHOLOGY CONSULTATION Patient Name: AMBROSIO RAMÍREZ V. MR#: [id number] Specimen #[id number] Procedures/Addenda PERIPHERAL BLOOD REPORT Date Ordered: 01/23/2025 Status: Signed Out Date Complete: 01/25/2025 By: Tamanna Gonzales M.D. Date Reported: 01/25/2025 INTERPRETATION Peripheral blood: - Normocytic red blood cells with unremarkable morphology. - White blood cells with normal morphology. No blasts. - Marked thrombocytopenia. RESULTS-COMMENTS PERIPHERAL BLOOD STUDY CBC: Please see the electronic health record for CBC parameters ([id number], 01/22/2025, 04:18). PLATELETS: Marked thrombocytopenia. LEUKOCYTES: White blood cells show normal morphology. No atypical lymphocytes. No dysplasia. There are no blasts. ERYTHROCYTES: Red blood cells show normal morphology. No schistocytes. Note: The electronic health record is reviewed. Tamanna Gonzales M.D. Source: A: Peripheral Blood Normal [facility] TEG Global Hemostasis with L ysison 01-22-2025 Fibrinogen, Functional TEG 39.8 mm High 15.0 - 32.0 mm [facility] Interpretation and review of laboratory results Abnormal [facility] LY30(Lysis) TEG 0 % 0.0 - 2.6 % [facility] MA(Max Clot) Rapid TEG mm Low 52.0 - 70 mm [facility] Reaction Time TEG 14.7 min High 4.6 - 9.1 min [facility] TSH reflex to FT4on 01-23-20 TSH Qn 1.24 m[IU]/L [facility] TSH w/reflex to [id number] Thyroid Stim. Horm. 1.24 uIU/mL Normal 0.27-4.20 [facility] Comment on above: Performed By: #### B MPX, CDP #### [facility] [address] [place], [place] [phone] Male Infertility Specialist: Mo Feliciano MD UA w/Reflex Cultureon 2024 Bilirubin, SemiQt,Ur Negative Normal NEG [facility] Comment on above: Performed By: #### F DP, CDP, BMPX, PRCAL, HIVCMB, HP4AB, ANAX, ANRFX, DIME, FIB #### [facility] [address] [place], [place] [phone] Male Infertility Specialist: Mo Feliciano MD Blood, Urine MODERATE Abnormal NEG [facility] Comment on above: Performed By: #### F DP, CDP, BMPX, PRCAL, HIVCMB, HP4AB, ANAX, ANRFX, DIME, FIB #### [facility] [address] [place], [place] [phone] Male Infertility Specialist: Mo Feliciano MD Clarity (U) Clear Normal CLEAR [facility] Comment on above: Performed By: #### F DP, CDP, BMPX, PRCAL, HIVCMB, HP4AB, ANAX, ANRFX, DIME, FIB #### [address] [address] Male Infertility Specialist: Mo Feliciano MD Color (U) Yellow Normal YEL [facility] Comment on above: Performed By: #### F DP, CDP, BMPX, PRCAL, HIVCMB, HP4AB, ANAX, ANRFX, DIME, FIB #### [facility] [address] [place] [address] Male Infertility Specialist: Mo Feliciano MD Glucose Ql (U) Negative Normal NEG [facility] Comment on above: Performed By: #### F DP, CDP, BMPX, PRCAL, HIVCMB, HP4AB, ANAX, ANRFX, DIME, FIB #### [address] [address] Male Infertility Specialist: Mo Feliciano MD Ketones Ql (U) Negative Normal NEG [facility] Comment on above: Performed By: #### F DP, CDP, BMPX, PRCAL, HIVCMB, HP4AB, ANAX, ANRFX, DIME, FIB #### [address] [address] Male Infertility Specialist: Mo Feliciano MD Leukocyte esterase Test strip Ql (U) Negative Normal NEG [facility] Comment on above: Performed By: #### F DP, CDP, BMPX, PRCAL, HIVCMB, HP4AB, ANAX, ANRFX, DIME, FIB #### [facility] [address] [place] [address] Male Infertility Specialist: Mo Feliciano MD Nitrite,Ur Negative Normal NEG [facility] Comment on above: Performed By: #### F DP, CDP, BMPX, PRCAL, HIVCMB, HP4AB, ANAX, ANRFX, DIME, FIB #### [facility] [employer] [address] [place] [address] Male Infertility Specialist: Mo Feliciano MD PH,Ur 5.5 Normal 5.0-8.0 [facility] Comment on above: Performed By: #### F DP, CDP, BMPX, PRCAL, HIVCMB, HP4AB, ANAX, ANRFX, DIME, FIB #### [facility] [address] [place] [phone] Male Infertility Specialist: Mo Feliciano MD Protein Ql (U) Negative Normal NEG [facility] Comment on above: Performed By: #### F DP, CDP, BMPX, PRCAL, HIVCMB, HP4AB, ANAX, ANRFX, DIME, FIB #### [facility] [employer] [address] [place] [address] Male Infertility Specialist: Mo Feliciano MD Spec. [place],Ur 1.052 High 1.005-1.030 [facility] Comment on above: Performed By: #### F DP, CDP, BMPX, PRCAL, HIVCMB, HP4AB, ANAX, ANRFX, DIME, FIB #### [facility] [employer] [address] [place] [address] Male Infertility Specialist: Mo Feliciano MD Urobilinogen,Ur Normal Normal 0.0-1.0 [facility] Comment on above: Performed By: #### F DP, CDP, BMPX, PRCAL, HIVCMB, HP4AB, ANAX, ANRFX, DIME, FIB #### [facility] [employer] [address] [place] [address] Male Infertility Specialist: Mo Feliciano MD US LIVER SPLEENon 01-22-2025 US LIVER SPLEEN EXAMINATION: RIGHT UPPER QUADRANT ULTRASOUND 01/22/2025 8:30 [...] by: Mary Erwin MD 01/22/25 Final result Normal [facility] Urinalysis with Reflex to Cu ltureon 01-22-2025 Bilirubin Ql (U) Negative NEGATIVE [facility] Clarity (U) Clear Clear [facility] Color (U) Yellow Yellow [facility] Glucose Test strip (U) [Mass/Vol] Negative NEGATIVE mg/dL [facility] Hemoglobin Auto test strip Ql (U) MODERATE Abnormal NEGATIVE [facility] Interpretation and review of laboratory results Abnormal [facility] Ketones (U) [Mass/Vol] Negative NEGATIVE mg/dL [facility] Leukocyte esterase Test strip Ql (U) Negative NEGATIVE [facility] Nitrite Ql (U) Negative NEGATIVE [facility] pH (U) 5.5 [pH] 5.0 - 8.0 [facility] Protein (U) [Mass/Vol] Negative NEGATIVE mg/dL [facility] Specific gravity (U) [Rel density] 1.052 High 1.005 - 1.030 [facility] Urobilinogen Qn (U) Normal 0.0 - 1. 0 EU/dL [facility] Urinalysis,Microon 5 Bacteria None Normal NONE [facility] Comment on above: Performed By: #### F DP, CDP, BMPX, PRCAL, HIVCMB, HP4AB, ANAX, ANRFX, DIME, FIB #### [facility] [employer] [address] [place] [address] Male Infertility Specialist: Mo Feliciano MD Casts None Normal 0-8 [facility] Comment on above: Result Comment: Refe rence range defined for non-centrifuged specimen. Performed By: #### F DP, CDP, BMPX, PRCAL, HIVCMB, HP4AB, ANAX, ANRFX, DIME, FIB #### [address] [phone] Male Infertility Specialist: Mo Feliciano MD Epithelial cells LM Ql (Urine sed) None Normal 0-5 [facility] Comment on above: Performed By: #### F DP, CDP, BMPX, PRCAL, HIVCMB, HP4AB, ANAX, ANRFX, DIME, FIB #### [facility] [employer] [address] [place] [phone] Male Infertility Specialist: Mo Feliciano MD Urine RBC's 10 TO 20 Normal 0-4 [facility] Comment on above: Result Comment: Refe rence range defined for non-centrifuged specimen. Performed By: #### F DP, CDP, BMPX, PRCAL, HIVCMB, HP4AB, ANAX, ANRFX, DIME, FIB #### [facility] [employer] [address] [place] [address] Male Infertility Specialist: Mo Feliciano MD Urine WBC's None Normal 0-5 [facility] Comment on above: Performed By: #### F DP, CDP, BMPX, PRCAL, HIVCMB, HP4AB, ANAX, ANRFX, DIME, FIB #### [facility] [employer] [address] [place] [address] Male Infertility Specialist: Mo Feliciano MD XR CHEST PORTABLEon 01-23-20 25 XR CHEST PORTABLE EXAMINATION: ONE XRAY VIEW OF THE CHEST [...] by: Bayron Hermosillo DO 01/22/25 Final result Normal [facility] Operative Reporton Operative Report Operative Report SURGERY DATE: 01/03/2025 PREOPERATIVE DIAGNOSIS: [...] condition. April Thompson M.D. ca Dictated: 01/03/2025 [id number] Transcribed: 01/03/2025 Normal [facility] Comment on above: Result Comment: Elec tronically Signed By: Jay DEVINE, April Barboza\.br\Date and Time Signed: 01/10/25 10:53 EDT BMPon 01-04-2025 CO2 [Moles/Vol] 21 mmol/L Normal 21-31 [facility] Comment on above: Performed By: #### 2 [id number] #### [facility] [address] [place] [address] Anion gap [Moles/Vol] 10 mmol/L Normal 6-16 [facility] Comment on above: Performed By: #### 2 [id number] #### [facility] [address] [place] [address] Calcium [Mass/Vol] 8.7 mg/dL Low 8.9-11.1 [facility] Comment on above: Performed By: #### 2 [id number] #### [facility] [address] [place] [address] Chloride [Moles/Vol] 107 mmol/L Normal 101-111 [facility] Comment on above: Performed By: #### 2 [id number] #### [facility] [address] [place] [address] Creatinine [Mass/Vol] 0.5 mg/dL Normal 0.5-1.3 [facility] Comment on above: Performed By: #### 2 [id number] #### [facility] [address] [place] [address] Glucose [Mass/Vol] 102 mg/dL Normal 55-199 [facility] Comment on above: Performed By: #### 2 [id number] #### [facility] [address] [place] [address] Potassium [Moles/Vol] 3.7 mmol/L Normal 3.5-5.3 [facility] Comment on above: Performed By: #### 2 [id number] #### [facility] [address] [place] [address] Sodium [Moles/Vol] 134 mmol/L Low 135-145 [facility] Comment on above: Performed By: #### 2 [id number] #### [facility] [address] [place] [address] Urea nitrogen [Mass/Vol] 14 mg/dL Normal 5-21 [facility] Comment on above: Performed By: #### 2 [id number] #### [facility] [address] [place] [address] Urea nitrogen/Creatinine [Mass ratio] 28 No Units High 10-20 [facility] Comment on above: Performed By: #### 2 [id number] #### [facility] [address] [place] [address] CBC w/Indiceson 01-04-2025 Erythrocyte distribution width (RBC) [Ratio] 14.3 % High 10.9-14.2 [facility] Comment on above: Performed By: #### 2 [id number] #### [facility] [address] [place] [address] Hematocrit (Bld) [Volume fraction] 41.9 % Normal 37.7-49.0 [facility] Comment on above: Performed By: #### 2 [id number] #### [facility] [address] [place] [address] Hemoglobin (Bld) [Mass/Vol] 13.7 g/dL Normal 13.5-17.5 [facility] Comment on above: Performed By: #### 2 [id number] #### [facility] [address] [place] [address] MCH (RBC) [Entitic mass] 28.9 pg Normal 27.0-34.0 [facility] Comment on above: Performed By: #### 2 [id number] #### [facility] [address] [place] [address] MCHC (RBC) [Mass/Vol] 32.7 g/dL Normal 31.4-36.0 [facility] Comment on above: Performed By: #### 2 [id number] #### [facility] [address] [place] [address] MCV (RBC) [Entitic vol] 88.4 fL Normal 80.0-100.0 [facility] Comment on above: Performed By: #### 2 [id number] #### [facility] [address] [place] [address] Platelet 163.0 E9/L Normal 150.0-500.0 [facility] Comment on above: Performed By: #### 2 [id number] #### [facility] [address] [place] [address] Platelet mean volume (Bld) [Entitic vol] 7.4 fL Normal 6.4-10.8 [facility] Comment on above: Performed By: #### 2 [id number] #### [facility] [address] [place] [address] RBC (Bld) [#/Vol] 4.7 E12/L Normal 4.3-5.9 [facility] Comment on above: Performed By: #### 2 [id number] #### [facility] [address] [place] [address] RBC size Nom (Bld) NORMAL Invalid Interpretation Code [facility] Comment on above: Performed By: #### 2 [id number] #### [facility] [address] [place] [address] WBC corrected for nucl RBC Auto (Bld) [#/Vol] 9.8 E9/L Normal 4.0-11.0 [facility] Comment on above: Performed By: #### 2 [id number] #### [facility] [address] [place] [address] CHEMISTRYOrdered By: SYSTEM SYSTEM on 01-04-2025 Anion gap [Moles/Vol] 10 mmol/L Normal 6 - 16 mEq/L [facility] Calcium [Mass/Vol] 8.7 mg/dL Low 8.9 - 11. 1 mg/dL [facility] Chloride [Moles/Vol] 107 mmol/L Normal 101 - 1 11 mmol/L [facility] Creatinine [Mass/Vol] 0.5 mg/dL Normal 0.5 - 1.3 mg/dL [facility] eGFR 114 mL/min/1.73 m2 Normal >=59mL/mi n/1. 73 m2 [facility] Glucose [Mass/Vol] 102 mg/dL Normal 55 - 199 mg/dL [facility] Magnesium [Mass/Vol] 2.1 mg/dL Normal 1.3 - 2 .4 mg/dL [facility] Phosphate [Mass/Vol] 3.9 mg/dL Normal 1.9 - 4 .6 mg/dL [facility] Potassium [Moles/Vol] 3.7 mmol/L Normal 3.5 - 5.3 mmol/L [facility] Sodium [Moles/Vol] 134 mmol/L Low 135 - 145 mmol/L [facility] Urea nitrogen [Mass/Vol] 14 mg/dL Normal 5 - 21 mg/dL [facility] Urea nitrogen/Creatinine [Mass ratio] 28 mg/mg High 10 - 20 [facility] CHEMISTRYOrdered By: Carol Holguin on 01-04-2025 CO2 [Moles/Vol] 21 mmol/L Normal 21 - 31 mmol/L [facility] Chem S HEMATOLOGYOrdered By: SYSTEM SYSTEM on 01-04-2025 Erythrocyte distribution width (RBC) [Ratio] 14.3 % High 10.9 - 14.2 % [facility] Hematocrit (Bld) [Volume fraction] 41.9 % Normal 37.7 - 49.0 % [facility] Hemoglobin (Bld) [Mass/Vol] 13.7 g/dL Normal 13.5 - 17.5 gm/dL [facility] MCH (RBC) [Entitic mass] 28.9 pg Normal 27.0 - 34.0 pg [facility] MCHC (RBC) [Mass/Vol] 32.7 g/dL Normal 31.4 - 36.0 gm/dL [facility] MCV (RBC) [Entitic vol] 88.4 fL Normal 80.0 - 100.0 fL [facility] Platelet 163.0 E9/L Normal 150.0 - 500.0 E9/L [facility] Platelet mean volume (Bld) [Entitic vol] 7.4 fL Normal 6.4 - 10.8 fL [facility] RBC (Bld) [#/Vol] 4.7 E12/L Normal 4.3 - 5.9 E12/L [facility] RBC size Nom (Bld) NORMAL *NA* (01/04/25 5:47 AM) Invalid Interpretation Code [facility] WBC corrected for nucl RBC Auto (Bld) [#/Vol] 9.8 E9/L Normal 4.0 - 11.0 E9/L [facility] Inpatient Clinical Summaryon 01-04-2025 Inpatient Clinical Summary Inpatient Clinical Summary [address] [address] Clinical Summary Person Information: Name: AMBROSIO RAMÍREZ Age: 64 Years : 1960 Sex: Male PCP: DAVION ODOM DO Marital Status: Single Race: White Ethnicity: or Language: Danish Visit Id: Visit Reason: I71.40 Speciality: Acuity: Enc Type: Inpatient Med Service: Medical Arrival: 01/03/2025 09:57:29 Discharge: Dispo Type: Address: [address] [place] [id number] Provider Notes: Diagnosis: 2:Hyperlipidemia Problems Active BMI [...] up: With: Address: When: April Thompson MD [address] [place] [address] 02/14/2025 9:15 AM Comments: Will need CTA run off prior to appt . The Cardiology office will get the order placed. Please call the office for futher instructions. Thank you. With: Address: When: DAVION [place] [phone] Business (1) Within 7 to 10 days Comments: Call for followup appointment Call physician if symptoms worsen Type Location Start Finish State Vascular Follow Up (FT) [facility] 02/14/2025 9:15 AM 02/14/2025 9:30 AM Confirmed Patient Education Information: Abdominal Aortic Aneurysm Endograft Repair, Care After; Abdominal Aortic Aneurysm Endograft Repair Normal [facility] Inpatient Patient Summaryon 01-04-2025 Inpatient Patient Summary Inpatient Patient Summary [address] [address] Patient Discharge Instructions PERSON INFORMATION Name: AMBROSIO RAMÍREZ Date of : 1960 Current Date: 01/04/2025 11:45:36 PHYSICIANS Admitting Physician: Jay DEVINE, April Barboza Primary Care Physician: DAVION ODOM DO PCP Comment: Discharge Diagnosis: 2:Hyperlipidemia [...] up: With: Address: When: April Thompson MD [address] [place] [address] Within 2 to 4 weeks Comments: Call for followup appointment and will need CTA run off prior to appt With: Address: When: DAVION [address] [phone] [facility] (1) Within 7 to 10 days Comments: Call for followup appointment Call physician if symptoms worsen In the event that this physician does not participate in your insurance network, please consult with your insurance company to find a nearby participating provider. Comment: DARRELL Mcallister PHILLIP, have received the attached patient education materials/instruction s and have verbalized understanding: Patient Signature Date Clinican/Nurse Signature Date HERE ARE THE MEDICATION CHANGES THAT OCCURRED DURING YOUR HOSPITAL STAY Medications to Continue with No Changes Other Medications aspirin (Aspirin Low Dose 81 mg oral tablet) 1 tab By Mouth every day. Last Dose: ____Next Dose: ____ rosuvastatin (rosuvastatin 10 mg Tab) 1 Tablets By Mouth every day. Last Dose: ____Next Dose: ____ Comment: MEDICATION LIST PROVIDED FOR YOU IS [...] these instructions at home: Medicines ??? Take vnss-imu-bwpnchi and prescription medicines only as told by [...] and water are not available, use hand personal financial advisor. ? Change your dressing as told by [...] products that contain nicotine or tobacco. These produ (more content not included)... [facility] Interdisciplinary Note - Adarsh e Manageron 01-04-2025 Interdisciplinary Note - Natural Resources Specialist Interdisciplinary Note - Natural Resources Specialist Patient is awake and alert in bed, previously rounded with Vascular. Patient is aware of plan to DC home today and family will transport. Pt declines any concerns or DC needs. Pt is independent at home. CRM following. . PCP verified and insurance information reviewed and DME discussed. Contact information provided and white board updated. [facility] Comment on above: Result Comment: Elec tronically Signed By: Olivier WIGGINS, Johanne\prince\Date and Time Signed: 01/04/25 09:48 EDT Magnesiumon 01-04-2025 Magnesium [Mass/Vol] 2.1 mg/dL Normal 1.3-2.4 [facility] Comment on above: Performed By: #### 2 [id number] #### [facility] [address] [place] [address] Phosphoruson 01-04-2025 Phosphate [Mass/Vol] 3.9 mg/dL Normal 1.9-4.6 [facility] Comment on above: Performed By: #### 2 [id number] #### [facility] [address] [place] [address] eGFRon 01-04-2025 eGFR 114 mL/min/1.73 m2 Normal >=59 [facility] Comment on above: Performed By: #### 1 [id number] #### [facility] [address] [place] [address] ABO/Rhon 01-03-2025 ABO/Rh Positive Invalid Interpretation Code [facility] Comment on above: Performed By: #### 2 [id number] #### [facility] [address] [place] [address] ABO/Rh History Checkon 01-03 ABO/Rh History Check Verified Hx Blood Type Normal [facility] Comment on above: Performed By: #### 1 [id number] #### [facility] [address] [place] [address] ABSCon 01-03-2025 ABSC Gel Interp Negative Normal [facility] Comment on above: Performed By: #### 1 [id number] #### [facility] [address] [place] [id number] BLOOD BANKOrdered By: Lucia Cervantes on 01-03-2025 ABO/Rh Interp Positive Invalid Interpretation Code [facility] BB Subsection ABSC Gel Interp Negative (01/03/25 10:20 AM) Normal [facility] BB Subsection Blood Bank ID#on 01-03-2025 BBID# [id number] Invalid Interpretation Code [facility] Comment on above: Performed By: #### 1 [id number] #### [facility] [address] [place] [address] Inpatient Clinical Summaryon 01-03-2025 Inpatient Clinical Summary Inpatient Clinical Summary [address] [address] Clinical Summary Person Information: Name: AMBROSIO RAMÍREZ Age: 64 Years : 1960 Sex: Male PCP: DAVION ODOM DO Marital Status: Single Race: White Ethnicity: or Language: Danish Visit Id: Visit Reason: I71.40 Speciality: Acuity: Enc Type: Inpatient Med Service: Medical Arrival: 01/03/2025 09:57:29 Discharge: Dispo Type: Address: [address] [place] [phone] Provider Notes: Diagnosis: 2:Hyperlipidemia Problems Active BMI [...] Thompson MD Follow up: With: Address: When: DAVION DELA CRUZPETRA [address] [place] [phone] Business (1) Within 7 to 10 days Comments: Call for followup appointment Call physician if symptoms worsen Patient Education Information: Normal [facility] Inpatient Patient Summaryon 01-03-2025 Inpatient Patient Summary Inpatient Patient Summary [place] [id number] Patient Discharge Instructions PERSON INFORMATION Name: AMBROSIO RAMÍREZ Date of : 1960 Current Date: 01/03/2025 15:55:03 PHYSICIANS Admitting Physician: Jay DEVINE, April Barboza Primary Care Physician: DAVION ODOM DO PCP Comment: Discharge Diagnosis: 2:Hyperlipidemia Condition at Discharge: AMBROSIO RAMÍREZ has been given the following [...] test results: Follow up: With: Address: When: DAVION ODOM [address] [place] [address] [phone] Business (1) Within 7 to 10 days Comments: Call for followup appointment Call physician if symptoms worsen In the event that this physician does not participate in your insurance network, please consult with your insurance company to find a nearby participating provider. Comment: I, AMBROSIO RAMÍREZ, have received the attached patient education materials/instruction s and have verbalized understanding: Patient Signature Date Clinican/Nurse Signature Date HERE ARE THE MEDICATION CHANGES THAT OCCURRED DURING YOUR HOSPITAL STAY Medications to Continue with No Changes Other Medications aspirin (Aspirin Low Dose 81 mg oral tablet) 1 tab By Mouth every day. Last Dose: ____Next Dose: ____ rosuvastatin (rosuvastatin 10 mg Tab) 1 Tablets By Mouth every day. Last Dose: ____Next Dose: ____ Comment: MEDICATION LIST PROVIDED FOR YOU IS [...] to serve you. Thank you for choosing [facility] Normal [facility] Main OR PACU I Recordon Main OR PACU I Record Main OR PACU I Record PACU Phase I Document Type FT Summary Primary Physician: April Thompson MD Finalized Date/Time: 01/03/25 15:53:23 Pt. Name: AMBROSIO RAMÍREZ /Sex: 1960 Male Med Rec #: [id number] Physician: April Thompson MD Financial #: [id number] Pt. Type: P Room/Bed: / Admit/Disch: - [...] Signed By: Beronica Anthony I 01/03/25 15:53 Normal [facility] Patient Education - Texton 0 01-03-2025 Patient Education - Text Patient Education - Text Normal [facility] URINALYSISOrdered By: SYSTEM SYSTEM on 01-03-2025 Bilirubin Ql (U) Negative Normal Negativemg/dL [facility] Auto SS Clarity (U) Clear (01/03/25 12:30 PM) Normal Clear [facility] UA Auto SS Color (U) Yellow 1 (01/03/25 12:30 PM) Normal Yellow [facility] UA Auto SS Comment on above: Interpretive Data: M icroscopic readings are only performed on those samples that meet specific criteria set forth by [facility]. Glucose Ql (U) Negative Normal Negativemg/dL [facility] UA Auto SS Hemoglobin Auto test strip (U) [Mass/Vol] Negative Normal Negativemg/dL [facility] UA Aut o SS Ketones Auto test strip Ql (U) Negative Normal Negativemg/dL [facility] UA Auto SS Leukocyte esterase Auto test strip Ql (U) Negative Normal NegativeLeu/u L [facility] UA Auto SS Nitrite Auto test strip Ql (U) Negative Normal Negativemg/dL [facility] UA Auto SS pH (U) 5.5 *NA* (01/03/25 12:30 PM) Invalid Interpretation Code 5.0 - 9.0 [facility] UA Auto SS Protein Ql (U) Negative Normal Negativemg/dL [facility] UA Auto SS Specific gravity (U) [Rel density] 1.029 *NA* (01/03/25 12:30 PM) Invalid Interpretation Code 1.005 - 1.030 [facility] UA Auto SS Urobilinogen (U) [Mass/Vol] Negative Normal Negativemg/dL [facility]A Auto SS URINALYSISOrdered By: Cate Rush on 01-03-2025 UA Spec Desc Catheter (01/03/25 12:30 PM) Normal [facility] Auto SS ABO/Rh Retypeon 12-27-2024 ABO/Rh Retype Interp Positive Invalid Interpretation Code [facility] Comment on above: Performed By: #### 1 [id number] #### [facility] [address] [facility] [place] [address] BLOOD BANKOrdered By: Melinda Chang on 12-27-2024 ABO/Rh Retype Interp Positive Invalid Interpretation Code [facility] BB Subsection BMPon 12-27-2024 Anion gap [Moles/Vol] 11 mmol/L Normal 6-16 [facility] Comment on above: Performed By: #### 2 [id number] #### [facility] [address] [place] [address] Calcium [Mass/Vol] 9.1 mg/dL Normal 8.9-11.1 [facility] Comment on above: Performed By: #### 2 [id number] #### [facility] [address] [place] [address] Chloride [Moles/Vol] 104 mmol/L Normal 101-111 [facility] Comment on above: Performed By: #### 2 [id number] #### [facility] [address] [place] [address] CO2 [Moles/Vol] 24 mmol/L Normal 21-31 [facility] Comment on above: Performed By: #### 2 [id number] #### [facility] [address] [place] [address] Creatinine [Mass/Vol] 0.6 mg/dL Normal 0.5-1.3 [facility] Comment on above: Performed By: #### 2 442401 #### [facility] [address] [place] [address] Glucose [Mass/Vol] 92 mg/dL Normal 55-199 [facility] Comment on above: Performed By: #### 2 [id number] #### [facility] [address] [place] [address] Potassium [Moles/Vol] 4.1 mmol/L Normal 3.5-5.3 [facility] Comment on above: Performed By: #### 2 440648 #### [facility] [address] [place] [address] Sodium [Moles/Vol] 135 mmol/L Normal 135-145 [facility] Comment on above: Performed By: #### 2 127812 #### [facility] [address] [place] [address] Urea nitrogen [Mass/Vol] 15 mg/dL Normal 5-21 [facility] Comment on above: Performed By: #### 2 161683 #### [facility] [address] [place] [address] Urea nitrogen/Creatinine [Mass ratio] 25 No Units High 10-20 [facility] Comment on above: Performed By: #### 2 [id number] #### [facility] [address] [place] [address] CBC w/ Auto Diffon 5 Basophils/100 WBC (Bld) 0.5 % Normal 0.0-2.0 [facility] Comment on above: Performed By: #### 2 [id number] #### [facility] [address] [place] [address] Basophils/Leukocytes Auto (Bld) [Pure # fraction] 0.0 E9/L Normal 0.0-0.2 [facility] Comment on above: Performed By: #### 2 049808 #### [facility] [address] [place] [address] Eosinophils (Bld) [#/Vol] 0.1 E9/L Normal 0.0-0.5 [facility] Comment on above: Performed By: #### 2 612740 #### [facility] [address] [place] [address] Eosinophils/100 WBC (Bld) 1.0 % Normal 0.0-8.0 [facility] Comment on above: Performed By: #### 2 532430 #### [facility] [address] [place] [address] Erythrocyte distribution width (RBC) [Ratio] 14.0 % Normal 10.9-14.2 [facility] Comment on above: Performed By: #### 2 363500 #### [facility] [address] [place] [address] Hematocrit (Bld) [Volume fraction] 45.3 % Normal 37.7-49.0 [facility] Comment on above: Performed By: #### 2 951981 #### [facility] [address] [place] [address] Hemoglobin (Bld) [Mass/Vol] 15.3 g/dL Normal 13.5-17.5 [facility] Comment on above: Performed By: #### 2 431479 #### [facility] [address] [place] [address] Lymphocytes (Bld) [#/Vol] 1.8 E9/L Normal 1.0-4.0 [facility] Comment on above: Performed By: #### 2 406468 #### [facility] [address] [place] [address] Lymphocytes/100 WBC (Bld) 29.3 % Normal 14.0-50.0 [facility] Comment on above: Performed By: #### 2 468863 #### [facility] [address] [place] [address] MCH (RBC) [Entitic mass] 30.1 pg Normal 27.0-34.0 [facility] Comment on above: Performed By: #### 2 292073 #### [facility] [address] [place] [address] MCHC (RBC) [Mass/Vol] 33.8 g/dL Normal 31.4-36.0 [facility] Comment on above: Performed By: #### 2 316993 #### [facility] [address] [place] [address] MCV (RBC) [Entitic vol] 88.9 fL Normal 80.0-100.0 [facility] Comment on above: Performed By: #### 2 [id number] #### [facility] [address] [place] [address] Monocytes (Bld) [#/Vol] 0.8 E9/L Normal 0.2-1.0 [facility] Comment on above: Performed By: #### 2 797942 #### [facility] [address] [place] [address] Neutrophils (Bld) [#/Vol] 3.6 E9/L Normal 2.0-7.5 [facility] Comment on above: Performed By: #### 2 367355 #### [facility] [address] [place] [address] Neutrophils/100 WBC (Bld) 56.8 % Normal 36.0-75.0 [facility] Comment on above: Performed By: #### 2 895117 #### [facility] [address] [place] [address] Platelet 199.0 E9/L Normal 150.0-500.0 [facility] Comment on above: Performed By: #### 2 [id number] #### [facility] [address] [place] [address] Platelet mean volume (Bld) [Entitic vol] 7.9 fL Normal 6.4-10.8 [facility] Comment on above: Performed By: #### 2 [id number] #### [facility] [address] [place] [address] RBC (Bld) [#/Vol] 5.1 E12/L Normal 4.3-5.9 [facility] Comment on above: Performed By: #### 2 [id number] #### [facility] [address] [place] [address] WBC corrected for nucl RBC Auto (Bld) [#/Vol] 6.3 E9/L Normal 4.0-11.0 [facility] Comment on above: Performed By: #### 2 [id number] #### [facility] [address] [place] [address] CHEMISTRYOrdered By: SYSTEM SYSTEM on 12-27-2024 Anion gap [Moles/Vol] 11 mmol/L Normal 6 - 16 mEq/L [facility] Calcium [Mass/Vol] 9.1 mg/dL Normal 8.9 - 11. 1 mg/dL [facility] Chloride [Moles/Vol] 104 mmol/L Normal 101 - 1 11 mmol/L [facility] CO2 [Moles/Vol] 24 mmol/L Normal 21 - 31 mmol/L [facility] Creatinine [Mass/Vol] 0.6 mg/dL Normal 0.5 - 1.3 mg/dL [facility] eGFR 108 mL/min/1.73 m2 Normal >=59mL/mi n/1. 73 m2 [facility] Glucose [Mass/Vol] 92 mg/dL Normal 55 - 199 mg/dL [facility] Potassium [Moles/Vol] 4.1 mmol/L Normal 3.5 - 5.3 mmol/L [facility] Sodium [Moles/Vol] 135 mmol/L Normal 135 - 145 mmol/L [facility] Urea nitrogen [Mass/Vol] 15 mg/dL Normal 5 - 21 mg/dL [facility] Urea nitrogen/Creatinine [Mass ratio] 25 mg/mg High 10 - 20 [facility] HEMATOLOGYOrdered By: SYSTEM SYSTEM on 12-27-2024 Basophils/100 WBC (Bld) 0.5 % Normal 0.0 - 2.0 % [facility]e Basophils/Leukocytes Auto (Bld) [Pure # fraction] 0.0 E9/L Normal 0.0 - 0.2 E9/L [facility] Eosinophils (Bld) [#/Vol] 0.1 E9/L Normal 0.0 - 0.5 E9/L [facility] Eosinophils/100 WBC (Bld) 1.0 % Normal 0.0 - 8.0 % [facility] Erythrocyte distribution width (RBC) [Ratio] 14.0 % Normal 10.9 - 14.2 % [facility] Hematocrit (Bld) [Volume fraction] 45.3 % Normal 37.7 - 49.0 % [facility] Hemoglobin (Bld) [Mass/Vol] 15.3 g/dL Normal 13.5 - 17.5 gm/dL [facility] Lymphocytes (Bld) [#/Vol] 1.8 E9/L Normal 1.0 - 4.0 E9/L [facility] Lymphocytes/100 WBC (Bld) 29.3 % Normal 14.0 - 50.0 % [facility] MCH (RBC) [Entitic mass] 30.1 pg Normal 27.0 - 34.0 pg [facility] MCHC (RBC) [Mass/Vol] 33.8 g/dL Normal 31.4 - 36.0 gm/dL [facility] MCV (RBC) [Entitic vol] 88.9 fL Normal 80.0 - 100.0 fL [facility] Monocytes (Bld) [#/Vol] 0.8 E9/L Normal 0.2 - 1.0 E9/L [facility] Monocytes/100 WBC (Bld) 12.4 % Normal 4.0 - 14.0 % [facility] Neutrophils (Bld) [#/Vol] 3.6 E9/L Normal 2.0 - 7.5 E9/L [facility] Neutrophils/100 WBC (Bld) 56.8 % Normal 36.0 - 75.0 % [facility] Platelet 199.0 E9/L Normal 150.0 - 500.0 E9/L [facility] Platelet mean volume (Bld) [Entitic vol] 7.9 fL Normal 6.4 - 10.8 fL [facility] RBC (Bld) [#/Vol] 5.1 E12/L Normal 4.3 - 5.9 E12/L [facility] WBC corrected for nucl RBC Auto (Bld) [#/Vol] 6.3 E9/L Normal 4.0 - 11.0 E9/L [facility] eGFRon 12-27-2024 eGFR 108 mL/min/1.73 m2 Normal >=59 [facility] Comment on above: Performed By: #### 1 [id number] #### [facility] [address] [place] [address] 36on 12-21-2024 36 Regarding stress edith t and echo result from 12/10/2024: MD Mary Gerard MA [...] back in 6 months. Patient verbalized understanding. Normal [facility] Office Visiton 11-29-2024 Follow-up visit [id number] Ambrosio Ramírez V 1960 Date Provider Department Center 11/29/2024 [id number] Family History Problem Relation Age of Onset Breast cancer Mother Lung cancer Father Family Status - Relation Status Age at Mother Father Sister Alive Brother Alive Level of Service:08[address] [place] OFFICE/OUTPATIENT NEW MODERATE MDM 45 MINUTES Reason for Visit and Comments: Hyperlipidemia [182] Normal [facility] CT CTA ABD AORTA W RUNOFFon 11-25-2024 [...] Mcduffie MD on 11/25/2024 1:10 PM Normal [facility] COMPREHENSIVE METABOLIC PANE Vicente 07-08-2024 Albumin [Mass/Vol] 4.3 g/dL Normal 3.2-5.3 [facility] Comment on above: Performed By: #### C MAGALIS, 29500-6 #### [facility] ([id number]) [address], [address] [place] [address] ALP [Catalytic activity/Vol] 59 U/L Normal 39-130 [facility] Comment on above: Performed By: #### C MAGALIS, 29087-2 #### [facility] ([id number]) [address], [address] [place] [address] ALT [Catalytic activity/Vol] 18 U/L Normal 0-40 [facility] Comment on above: Performed By: #### C MAGALIS, 22054-0 #### [facility] ([id number]) [address], [address] [place] [address] Anion gap [Moles/Vol] 8 mmol/L Normal 5-15 [facility] Comment on above: Performed By: #### Danilo BLANCAS, 82335-7 #### [facility] ([id number]) [address], [address] [place] [address] AST [Catalytic activity/Vol] 22 U/L Normal 0-41 [facility] Comment on above: Performed By: #### Danilo BLANCAS 62644-4 #### [facility] ([id number]) [address] [place] [address] Bilirubin [Mass/Vol] 0.5 mg/dL Normal 0.3-1.2 [facility] Comment on above: Performed By: #### Danilo BLANCAS, 81429-6 #### [facility] ([id number]) [address], [address] [place] [address] Calcium [Mass/Vol] 9.1 mg/dL Normal 8.5-10.5 [facility] Comment on above: Performed By: #### Danilo BLANCAS 35785-8 #### [facility] ([id number]) [address], [address] [place] [address] Chloride [Moles/Vol] 105 mmol/L Normal 98-109 [facility] Comment on above: Performed By: #### Danilo BLANCAS, 30346-6 #### [facility] ([id number]) [address] [place] [address] CO2 [Moles/Vol] 26 mmol/L Normal 22-32 [facility] Comment on above: Performed By: #### Danilo BLANCAS, 94239-4 #### [facility] ([id number]) [address] [place] [address] Creatinine [Mass/Vol] 0.68 mg/dL Normal 0.60-1.30 [facility] Comment on above: Result Comment: METH OD TRACEABLE TO IDMS STANDARD Performed By: #### Danilo BLANCAS 85644-8 #### [facility] ([id number]) [address] [place] [address] eGFR (CKD-EPI) NON-RACE DEPENDENT >90 Normal >59 [facility] Comment on above: Result Comment: Reported eGFR is based on the CKD-EPI 1 equation that does not use a race coefficient. Performed By: #### Danilo BLANCAS, 80687-6 #### [facility] ([id number]) [address] [place] [address] Glucose [Mass/Vol] 96 mg/dL Normal 65-99 [facility] Comment on above: Performed By: #### Danilo BLANCAS 98135-7 #### [facility] ([id number]) [address] [place] [address] Potassium [Moles/Vol] 4.4 mmol/L Normal 3.5-5.0 [facility] Comment on above: Performed By: #### Danilo BLANCAS, 48772-5 #### [facility] ([id number]) [address] [place] [address] Protein [Mass/Vol] 7.6 g/dL Normal 6.0-8.0 [facility] Comment on above: Performed By: #### Danilo BLANCAS, 92365-9 #### [facility] ([id number]) [address] [place] [address] Sodium [Moles/Vol] 139 mmol/L Normal 134-146 [facility] Comment on above: Performed By: #### Danilo BLANCAS, 05198-8 #### [facility] ([id number]) [address] [place] [address] Urea nitrogen [Mass/Vol] 16 mg/dL Normal 5-27 [facility] Comment on above: Performed By: #### Danilo BLANCAS, 30868-0 #### [facility] ([id number]) [address] [place] [address] Comprehensive metabolic pane vicente 07-08-2024 Albumin [Mass/Vol] 4.3 g/dL 3.2 - 5.3 g/dL [facility] ALP [Catalytic activity/Vol] 59 U/L 39 - 130 U/L [facility] ALT No additional P-5'-P [Catalytic activity/Vol] 18 U/L 0 - 40 U/L [facility] Anion gap [Moles/Vol] 8 mmol/L 5 - 15 mmol/L [facility] AST [Catalytic activity/Vol] 22 U/L 0 - 41 U/L [facility] Bilirubin [Mass/Vol] 0.5 mg/dL 0.3 - 1 .2 mg/dL [facility] Calcium [Mass/Vol] 9.1 mg/dL 8.5 - 10. 5 mg/dL [facility] Chloride [Moles/Vol] 105 mmol/L 98 - 10 9 mmol/L [facility] CO2 [Moles/Vol] 26 mmol/L 22 - 32 mmol/L [facility] Creatinine [Mass/Vol] 0.68 mg/dL 0.60 - 1.30 mg/dL [facility] Comment on above: METHOD TRACEABLE TO [facility] STANDARD eGFR (CKD-EPI)non-race dependent - PINF [facility] Comment on above: Reported eGFR is based on the CKD-EPI 2020 equation that does not use a race coefficient. Glucose [Mass/Vol] 96 mg/dL 65 - 99 mg/dL [facility] Potassium [Moles/Vol] 4.4 mmol/L 3.5 - 5.0 mmol/L [facility] Protein [Mass/Vol] 7.6 g/dL 6.0 - 8.0 g/dL [facility] Sodium [Moles/Vol] 139 mmol/L 134 - 146 mmol/L [facility] Urea nitrogen [Mass/Vol] 16 mg/dL 5 - 27 mg/dL [facility] Lipid 1996 panelon Cholesterol [Mass/Vol] 148 mg/dL Low 150 - 200 mg/dL [facility] Cholesterol in HDL [Mass/Vol] 35 mg/dL Low 39 - PINF mg/dL [facility] Comment on above: HDL <40 mg/dL - High Risk HDL > or = 40mg/dL- Desirable HDL >60 mg/dL - Negative Risk Cholesterol in LDL [Mass/Vol] 90 mg/dL NINF - 130 mg/dL [facility] Comment on above: LDL <100 mg/dL - Desirable LDL >160 mg/dL - High Risk Cholesterol in VLDL [Mass/Vol] 23 mg/dL 0 - 30 mg/dL [facility] Cholesterol.total/Ch olesterol in HDL [Mass ratio] 4.2 {ratio} 1.0 - 5.0 [facility] Interpretation and review of laboratory results Abnormal [facility] Triglyceride [Mass/Vol] 113 mg/dL 27 - 150 mg/dL [facility] Cholesterol [Mass/Vol] 148 mg/dL Low 150-200 [facility] Comment on above: Performed By: ###[place], [address]-8 #### [facility] ([id number]) [address] [place] [address] Cholesterol in HDL [Mass/Vol] 35 mg/dL Low >39 [facility] Comment on above: Result Comment: HDL <40 mg/dL - High Risk HDL > or = 40mg/dL- Desirable HDL >60 mg/dL - Negative Risk Performed By: #### Danilo BLANCAS, 20059-8 #### [facility] ([id number]) [address], [address] [place] [address] Cholesterol in LDL [Mass/Vol] 90 mg/dL Normal <130 [facility] Comment on above: Result Comment: LDL <100 mg/dL - Desirable LDL >160 mg/dL - High Risk Performed By: #### Danilo BLANCAS, 52694-0 #### [facility] ([id number]) [address], [address] [place] [address] Cholesterol in VLDL [Mass/Vol] 23 mg/dL Normal 0-30 [facility] Comment on above: Performed By: #### Danilo BLANCAS, 04298-3 #### [facility] ([id number]) [address], [address] [place] [address] CHOLESTEROL:HDL 4.2 Normal 1.0-5.0 [facility] Comment on above: Performed By: #### Danilo BLANCAS, 14873-3 #### [facility] ([id number]) [address], [address] [place] [address] Triglyceride [Mass/Vol] 113 mg/dL Normal 27-150 [facility] Comment on above: Performed By: #### Danilo BLANCAS, 94096-0 #### [facility] ([id number]) [address] [place] [address] No Panel Informationon 07-08 [facility] COMPREHENSIVE METABOLIC PANE Vicente 08-22-2023 Albumin [Mass/Vol] 4.5 g/dL Normal 3.2-5.3 [facility] Comment on above: Performed By: #### Danilo BLANCAS, 72626-2 #### [facility] ([id number]) [address], [address] [place] [address] ALP [Catalytic activity/Vol] 65 U/L Normal 39-130 [facility] Comment on above: Performed By: #### Danilo BLANCAS, 18471-1 #### [facility] ([id number]) [address], [address] [place] [address] ALT [Catalytic activity/Vol] 17 U/L Normal 0-40 [facility] Comment on above: Performed By: #### Danilo BLANCAS, 06908-6 #### [facility] ([id number]) [address] [place] [address] Anion gap [Moles/Vol] 7 mmol/L Normal 5-15 [facility] Comment on above: Performed By: #### Danilo BLANCAS, 25026-3 #### [facility] ([id number]) [address] [place] [address] AST [Catalytic activity/Vol] 21 U/L Normal 0-41 [facility] Comment on above: Performed By: #### Danilo BLANCAS, 55899-8 #### [facility] ([id number]) [address] [place] [address] Bilirubin [Mass/Vol] 0.7 mg/dL Normal 0.3-1.2 [facility] Comment on above: Performed By: #### Danilo BLANCAS, 05099-5 #### [facility] ([id number]) [address] [place] [address] Calcium [Mass/Vol] 9.4 mg/dL Normal 8.5-10.5 [facility] Comment on above: Performed By: #### Danilo BLANCAS, 97272-7 #### [facility] ([id number]) [address] [place] [address] Chloride [Moles/Vol] 103 mmol/L Normal 98-109 [facility] Comment on above: Performed By: #### Danilo BLANCAS, 39433-1 #### [facility] ([id number]) [address] [place] [address] CO2 [Moles/Vol] 25 mmol/L Normal 22-32 [facility] Comment on above: Performed By: #### C MAGALIS, 59663-9 #### [facility] ([id number]) [address] [place] [address] Creatinine [Mass/Vol] 0.71 mg/dL Normal 0.60-1.30 [facility] Comment on above: Result Comment: METH OD TRACEABLE TO IDMS STANDARD Performed By: #### Danilo BLANCAS, 40454-3 #### [facility] ([id number]) [address] [place] [address] eGFR (CKD-EPI) NON-RACE DEPENDENT >90 Normal >59 [facility] Comment on above: Result Comment: Reported eGFR is based on the CKD-EPI 2020 equation that does not use a race coefficient. Performed By: #### C MAGALIS, 88376-3 #### [facility] ([id number]) [address] [place] [address] Glucose [Mass/Vol] 86 mg/dL Normal 65-99 [facility] Comment on above: Performed By: #### Danilo BLANCAS, 12840-7 #### [facility] ([id number]) [address] [place] [address] Potassium [Moles/Vol] 4.3 mmol/L Normal 3.5-5.0 [facility] Comment on above: Performed By: #### Danilo BLANCAS, 83840-6 #### [facility] ([id number]) [address] [place] [address] Protein [Mass/Vol] 8.1 g/dL High 6.0-8.0 [facility] Comment on above: Performed By: #### Danilo BLANCAS, 21058-8 #### [facility] ([id number]) [address] [place] [address] Sodium [Moles/Vol] 135 mmol/L Normal 134-146 [facility] Comment on above: Performed By: #### C MAGALIS, 83344-5 #### [facility] ([id number]) [address] [place] [address] Urea nitrogen [Mass/Vol] 16 mg/dL Normal 5-27 [facility] Comment on above: Performed By: #### Danilo BLANCAS, 67353-5 #### [facility] ([id number]) [address] [place] [address] Lipid 1996 panelon 3 Cholesterol [Mass/Vol] 146 mg/dL Low 150-200 [facility] Comment on above: Performed By: #### Danilo BLANCAS, 57199-6 #### [facility] ([id number]) [address] [place] [address] Cholesterol in HDL [Mass/Vol] 32 mg/dL Low >39 [facility] Comment on above: Result Comment: HDL <40 mg/dL - High Risk HDL > or = 40mg/dL- Desirable HDL >60 mg/dL - Negative Risk Performed By: #### Danilo BLANCAS, 43136-4 #### [facility] ([id number]) [address] [place] [address] Cholesterol in LDL [Mass/Vol] 89 mg/dL Normal <130 [facility] Comment on above: Result Comment: LDL <100 mg/dL - Desirable LDL >160 mg/dL - High Risk Performed By: #### Danilo BLANCAS, 63860-4 #### [facility] ([id number]) [address] [place] [address] Cholesterol in VLDL [Mass/Vol] 25 mg/dL Normal 0-30 [facility] Comment on above: Performed By: #### Danilo BLANCAS, 52609-2 #### [facility] ([id number]) [address] [place] [address] CHOLESTEROL:HDL 4.6 Normal 1.0-5.0 [facility] Comment on above: Performed By: #### Danilo BLANCAS, 90822-4 #### [facility] ([id number]) [address] [place] [address] Triglyceride [Mass/Vol] 126 mg/dL Normal 27-150 [facility] Comment on above: Performed By: #### Danilo BLANCAS, 46611-5 #### [facility] ([id number]) [address] [place] [address] COMPREHENSIVE METABOLIC PANE [facility] 03-21-2022 Albumin [Mass/Vol] 4.5 g/dL Normal 3.6-5.1 [facility] Comment on above: Performed By: #### 7 600, 32428, 5363 #### [facility] [place] [address] [employer]: Sher López MD Albumin/Globulin [Mass ratio] 1.6 {ratio} Normal 1.0-2.5 [facility] Comment on above: Performed By: #### 7 600, 26782, 5363 #### [facility] [place] [address] [employer]: Sher López MD ALP [Catalytic activity/Vol] 58 U/L Normal 35-144 [facility] Comment on above: Performed By: #### 7 600, 56046, 5363 #### [facility] [place] [address] [employer]: Sher López MD ALT [Catalytic activity/Vol] 13 U/L Normal 9-46 [facility] Comment on above: Performed By: #### 7 600, 82759, 5363 #### [facility] of [address], [address] [place] [address] [employer]: Sher López MD AST [Catalytic activity/Vol] 17 U/L Normal 10-35 [facility] Comment on above: Performed By: #### 7 600, 22617, 5363 #### [facility] of [place] [address] [employer]: Sher López MD Bilirubin [Mass/Vol] 0.5 mg/dL Normal 0.2-1.2 [facility] Comment on above: Performed By: #### 7 600, 58101, 5363 #### [facility] of [place] [address] [employer]: Sher López MD Calcium [Mass/Vol] 8.7 mg/dL Normal 8.6-10.3 [facility] Comment on above: Performed By: #### 7 600, , 5363 #### [facility] of [place] [address] [employer]: Sher López MD Chloride [Moles/Vol] 106 mmol/L Normal 98-110 [facility] Comment on above: Performed By: #### 7 600, 84121, 5363 #### [facility] of [place] [address] [employer]: Sher López MD CO2 [Moles/Vol] 23 mmol/L Normal 20-32 [facility] Comment on above: Performed By: #### 7 600, 78597, 5363 #### [facility] of [place] [address] [employer]: Sher López MD Creatinine [Mass/Vol] 0.68 mg/dL Low 0.70-1.35 [facility] Comment on above: Performed By: #### 7 600, 56468, 5363 #### [facility] of [place] [address] [employer]: Sher López MD GFR/1.73 sq M.predicted among non-blacks MDRD (S/P/Bld) [Vol rate/Area] 106 mL/min/{1.73_m2} Normal > OR = 60 [facility] Comment on above: Result Comment: The eGFR is based on the CKD-EPI 2020 equation. To calculate the new eGFR from a previous Creatinine or Cystatin C result, go to https://www.kidney.org/professionals/ kdoqi/gfr%5Fcalculator Performed By: #### 7 600, 55013, 5363 #### [facility] [address], [address] [place] [address] [employer]: Sher López MD Globulin (S) [Mass/Vol] 2.9 g/dL Normal 1.9-3.7 [facility] Comment on above: Performed By: #### 7 600, 35032, 5363 #### [facility] [place] [address] [employer]: Sher López MD Glucose [Mass/Vol] 100 mg/dL High 65-99 [facility] Comment on above: Result Comment: Fasting reference interval For someone without known diabetes, a glucose value between 100 and 125 mg/dL is consistent with prediabetes and should be confirmed with a follow-up test. Performed By: #### 7 600, 74446, 5363 #### [facility] [address], [address] [place] [address] [employer]: Sher López MD Potassium [Moles/Vol] 3.9 mmol/L Normal 3.5-5.3 [facility] Comment on above: Performed By: #### 7 600, 85240, 5363 #### [facility] [address], [address] [place] [address] [employer]: Sher López MD Protein [Mass/Vol] 7.4 g/dL Normal 6.1-8.1 [facility] Comment on above: Performed By: #### 7 600, 65568, 5363 #### [facility] [address], [address] [place] [address] [employer]: Sher López MD Sodium [Moles/Vol] 136 mmol/L Normal 135-146 [facility] Comment on above: Performed By: #### 7 600, 19033, 5363 #### [facility] [place] [address] [employer]: Sher López MD Urea nitrogen [Mass/Vol] 13 mg/dL Normal 7-25 [facility] Comment on above: Performed By: #### 7 600, 06622, 5363 #### [facility] [address], [address] [place] [address] [employer]: Sher López MD Urea nitrogen/Creatinine [Mass ratio] 19 mg/mg Normal 6-22 [facility] Comment on above: Performed By: #### 7 600, 72644, 5363 #### [facility] [place] [address] [employer]: Sher López MD LIPID PANEL, [facility] 07-2 Cholesterol [Mass/Vol] 206 mg/dL High <200 [facility] Comment on above: Order Comment: FASTI NG:YES FASTING: YES Performed By: #### 7 600, 60477, 5363 #### [facility] [place] [address] [employer]: Sher López MD Cholesterol in HDL [Mass/Vol] 36 mg/dL Low > OR = 40 [facility] Comment on above: Order Comment: FASTI NG:YES FASTING: YES Performed By: #### 7 600, 24288, 5363 #### [facility] [place] [address] [employer]: Sher López MD Cholesterol in LDL [Mass/Vol] 142 mg/dL High [facility] Comment on above: Order Comment: FASTI NG:YES FASTING: YES Result Comment: Refe rence range: <100 Desirable range <100 mg/dL for primary prevention; <70 mg/dL for patients with CHD or diabetic patients with > or = 2 CHD risk factors. LDL-C is now calculated using the Wali-Ellsworth calculation, which is a validated novel method providing better accuracy than the Friedewald equation in the estimation of LDL-C. Wali SS et al. CLAUDETTE. 2013;310(19): 8792-6328 (http://education.[employer].Connectivity/faq/ZVE431) Performed By: #### 7 600, 91563, 5363 #### [facility] [address], [address] [place] [address] [employer]: Sher López MD Cholesterol.total/Ch olesterol in HDL [Mass ratio] 5.7 {ratio} High <5.0 [facility] Comment on above: Order Comment: FASTI NG:YES FASTING: YES Performed By: #### 7 600, 89106, 5363 #### [facility] [address], [address] [place] [address] [employer]: Sher López MD NON HDL CHOLESTEROL 170 mg/dL (calc) High <130 [facility] Comment on above: Order Comment: FASTI NG:YES FASTING: YES Result Comment: For patients with diabetes plus 1 major ASCVD risk factor, treating to a non-HDL-C goal of <100 mg/dL (LDL-C of <70 mg/dL) is considered a therapeutic option. Performed By: #### 7 600, 03145, 5363 #### [facility] [place] [address] [employer]: Sher López MD Triglyceride [Mass/Vol] 152 mg/dL High <150 [facility] Comment on above: Order Comment: FASTI NG:YES FASTING: YES Performed By: #### 7 600, 23705, 5363 #### [facility] [address], [address] [place] [address] [employer]: Sher López MD PSA, TOTALon 03-21-2022 PSA, TOTAL 0.41 ng/mL Normal < OR = 4.00 [facility] Comment on above: Result Comment: The total PSA value from this assay system is standardized against the WHO standard. The test result will be approximately 20% lower when compared to the equimolar-standardized total PSA (Monse Neva). Comparison of serial PSA results should be interpreted with this fact in mind. This test was performed using the Siemens chemiluminescent method. Values obtained from different assay methods cannot be used interchangeably. PSA levels, regardless of value, should not be interpreted as absolute evidence of the presence or absence of disease. Performed By: #### 7 600, 06686, 5361 #### [facility] [address] [facility], [address] [place] [address] [employer]: Sher López MD US ABD AORTA DIAGNOSTICon [...] by: DORCAS HENRY Date: 2022-02-08 18:00 Normal [facility] PSA, FREE AND TOTAL RATIOon 10-09-2021 % Free PSA 40.0 % Normal [facility] Comment on above: Result Comment: The table [...] men. Performed By: #### P SAFREE #### [facility] [address] [place] [address] Vanessa Ordonez Prostate specific Ag [Mass/Vol] 0.4 ng/mL Normal 0.0-4.0 [facility] Comment on above: Result Comment: Rosalio rocha ECLIA methodology. . According to the [employer] [employer], Serum PSA should decrease and [...] disease. Performed By: #### P SAFREE #### [facility] [address] [place] [address] Dr. Vanessa Ordonez PSA, Free 0.16 ng/mL Normal N/A [facility] Comment on above: Result Comment: Rosalio rocha ECLIA methodology. Performed By: #### P SAFREE #### [facility] [address] [place] [address] Dr. Vanessa Ordonez CBC AUTO DIFFon 08-06-2021 BASO # 0.0 103/ul Normal 0.0-0.1 [facility] Comment on above: Performed By: #### C BC #### [facility] [address] [place] [address] Dr. Vanessa Ordonez Basophils/100 WBC (Bld) 0.6 % Normal 0.2-2.0 [facility] Comment on above: Performed By: #### C BC #### [facility] [address] [place] [address] Dr. Vanessa Ordonez EO # 0.1 103/ul Normal 0.0-0.7 [facility] Comment on above: Performed By: #### C BC #### [facility] [address] [place] [address] Dr. Vanessa Ordonez Eosinophils/100 WBC (Bld) 2.2 % Normal 0.9-7.0 [facility] Comment on above: Performed By: #### C BC #### [facility] [address] [place] [address] Dr. Vanessa Ordonez Erythrocyte distribution width (RBC) [Ratio] 13.4 % Normal 11.0-15.0 [facility] Comment on above: Performed By: #### C BC #### [facility] [address] [place] [address] Dr. Vanessa Ordonez Hematocrit (Bld) [Volume fraction] 43.9 % Normal 42.0-54.0 [facility] Comment on above: Performed By: #### C BC #### [facility] [address] [place] [address] Dr. Vanessa Ordonez Hemoglobin (Bld) [Mass/Vol] 14.4 g/dL Normal 14.0-18.0 [facility] Comment on above: Performed By: #### C BC #### [facility] [address] [place] [address] Dr. Vanessa Ordonez IG # 0.02 10e3/ul Normal 0.00-0.03 [facility] Comment on above: Performed By: #### C BC #### [facility] [address] [place] [address] Dr. Vanessa Ordonez IG % 0.4 % Normal 0.0-0.5 [facility] Comment on above: Performed By: #### C BC #### [facility] [address] [place] [address] Dr. Vanessa Ordonez LYMPH # 1.9 103/ul Normal 1.2-3.8 [facility] Comment on above: Performed By: #### C BC #### [facility] [address] [place] [address] Dr. Vanessa Ordonez Lymphocytes/100 WBC (Bld) 35.3 % Normal 20.5-60.0 [facility] Comment on above: Performed By: #### C BC #### [facility] [address] [place] [address] Dr. Vanessa Ordonez MANUAL DIFF REQ NO Normal [facility] Comment on above: Performed By: #### C BC #### [facility] [address] [place] [address] Dr. Vanessa Ordonez MCH (RBC) [Entitic mass] 29.4 pg Normal 25.9-34.0 [facility] Comment on above: Performed By: #### C BC #### [facility] [address] [place], [place] [address] Dr. Vanessa Ordonez MCHC (RBC) [Mass/Vol] 32.8 g/dL Normal 29.9-35.2 [facility] Comment on above: Performed By: #### C BC #### [facility] [address] [place] [address] Dr. Vanessa Ordonez MCV (RBC) [Entitic vol] 89.8 fL Normal 80.0-94.0 [facility] Comment on above: Performed By: #### C BC #### [facility] [address] [place] [address] Dr. Vanessa Ordonez MONO # 0.7 103/ul Normal 0.3-0.8 [facility] Comment on above: Performed By: #### C BC #### [facility] [address] [place] [address] Dr. Vanessa Ordonez Monocytes/100 WBC (Bld) 12.8 % Critically high 1.7-12.0 [facility] Comment on above: Performed By: #### C BC #### [facility] [address] [place] [address] Dr. Vanessa Ordonez NEUT # 2.6 103/ul Normal 1.4-6.5 [facility] Comment on above: Performed By: #### C BC #### [facility] [address] [place] [address] Dr. Vanessa Ordonez Neutrophils/100 WBC (Bld) 48.7 % Normal 43.0-75.0 [facility] Comment on above: Performed By: #### C BC #### [facility] [address] [place] [address] Dr. Vanessa Ordonez Platelet mean volume (Bld) [Entitic vol] 10.6 fL Normal 9.5-13.5 [facility] Comment on above: Performed By: #### C BC #### [facility] [address] [place] [address] Dr. Vanessa Ordonez PLT 163 103/ul Normal 150-450 [facility] Comment on above: Performed By: #### C BC #### [facility] [address] [place] [address] Dr. Vanessa Ordonez RBC 4.89 106/ul Normal 4.70-6.10 [facility] Comment on above: Performed By: #### C BC #### [facility] [address] [place] [address] [address] Vanessa Ordonez WBC 5.4 103/ul Normal 4.0-11.0 [facility] Comment on above: Performed By: #### C BC #### [facility] [address] [place] [address] Dr. Vanessa Ordonez LIPID PROFILEon 08-06-2021 CHOL-HDL RATIO NORM SEE BELOW Normal [facility] Comment on above: Result Comment: 3.3 - 4.4 LOW RISK 4.4 - 7.1 AVERAGE RISK 7.1 - 11.0 MODERATE RISK >11.0 HIGH RISK Performed By: #### C MP, LIPID #### [facility] [address] [place] [address] Dr. Vanessa Ordonez Cholesterol [Mass/Vol] 138 mg/dL Normal <=200 [facility] Comment on above: Performed By: #### C MP, LIPID #### [facility] [address] [place] [address] Dr. Vanessa Ordonez Cholesterol in HDL [Mass/Vol] 41 mg/dL Normal [facility] Comment on above: Performed By: #### C MP, LIPID #### [facility] [address] [place] [address] Dr. Vanessa Ordonez Cholesterol in LDL [Mass/Vol] 85.6 mg/dL Normal [facility] Comment on above: Performed By: #### C MP, LIPID #### [facility] [address] [place] [address] Dr. Vanessa Ordonez Cholesterol.total/Ch olesterol in HDL [Mass ratio] 3.4 {ratio} Normal [facility] Comment on above: Performed By: #### C MP, LIPID #### [facility] [address] [place] [address] Dr. Vanessa Ordonez HDL NORMAL > or = 60 mg/dl - LO W CARDIOVASCULAR RISK <40 mg/dl - HIGH CARDIOVASCULAR RISK Normal [facility] Comment on above: Performed By: #### C MP, LIPID #### [facility] [address] [place] [address] Dr. Vanessa Ordonez LDL CALC NORMAL SEE BELOW Normal [facility] Comment on above: Result Comment: <100 mg/dl OPTIMAL 100 - 129 mg/dl NEAR OR ABOVE OPTIMAL 130 - 159 mg/dl BORDERLINE HIGH 160 - 189 mg/dl HIGH >190 mg/dl VERY HIGH Performed By: #### C MP, LIPID #### [facility] [address] [place] [address] Dr. Vanessa Ordonez Triglyceride [Mass/Vol] 57 mg/dL Normal <=150 [facility] Comment on above: Performed By: #### C MP, LIPID #### [facility] [address] [place] [address] Dr. Vanessa Ordonez VLDL CALC 11.4 mg/dL Normal [facility] Comment on above: Performed By: #### C MP, LIPID #### [facility] [address] [place] [address] Dr. Vanessa Ordonez PROF 14(COMP METB)on 021 Albumin [Mass/Vol] 3.7 g/dL Normal 3.5-5.0 [facility] Comment on above: Performed By: #### C MP, LIPID #### [facility] [address] [place] [address] Dr. Vanessa Ordonez Albumin/Globulin [Mass ratio] 1.0 {ratio} Normal [facility] Comment on above: Performed By: #### C MP, LIPID #### [facility] [address] [place] [address] Dr. Vanessa Ordonez ALP [Catalytic activity/Vol] 66 U/L Normal 38-126 [facility] Comment on above: Performed By: #### C MP, LIPID #### [facility] [address] [place] [address] Dr. Vanessa Ordonez ALT [Catalytic activity/Vol] 23 U/L Normal 21-72 [facility] Comment on above: Performed By: #### C MP, LIPID #### [facility] [address] [place] [address] Dr. Vanessa Ordonez Anion gap [Moles/Vol] 12.5 mmol/L Normal [facility] Comment on above: Performed By: #### C MP, LIPID #### [facility] [address] [place] [address] Dr. Vanessa Ordonez AST [Catalytic activity/Vol] 24 U/L Normal 17-59 [facility] Comment on above: Performed By: #### C MP, LIPID #### [facility] [address] [place] [address] Dr. Vanessa Ordonez Bilirubin [Mass/Vol] 0.6 mg/dL Normal 0.2-1.3 [facility] Comment on above: Performed By: #### C MP, LIPID #### [facility] [address] [place] [address] Dr. Vanessa Ordonez Calcium [Mass/Vol] 8.8 mg/dL Normal 8.4-10.2 [facility] Comment on above: Performed By: #### C MP, LIPID #### [facility] [address] [place] [address] Dr. Vanessa Ordonez Chloride [Moles/Vol] 100 mmol/L Normal 98-107 [facility] Comment on above: Performed By: #### C MP, LIPID #### [facility] [address] [place] [address] Dr. Vanessa Ordonez CO2 [Moles/Vol] 27.4 mmol/L Normal 22.0-30.0 [facility] Comment on above: Performed By: #### C MP, LIPID #### [facility] [address] [place] [address] Dr. Vanessa Ordonez Creatinine [Mass/Vol] 0.68 mg/dL Normal 0.66-1.25 [facility] Comment on above: Performed By: #### C MP, LIPID #### [facility] [address] [place] [address] Dr. Vanessa Ordonez EGFR-AF POLISH >60 Normal >=60 [facility] Comment on above: Performed By: #### C MP, LIPID #### [facility] [address] [place] [address] Dr. Vanessa Ordonez EGFR-NON AF POLISH >60 Normal >=60 [facility] Comment on above: Performed By: #### C MP, LIPID #### [facility] [address] [place] [address] Dr. Vanessa Ordonez Globulin (S) [Mass/Vol] 3.6 g/dL Normal [facility] Comment on above: Performed By: #### C MP, LIPID #### [facility] [address] [place] [address] Dr. Vanessa Ordonez Glucose [Mass/Vol] 86 mg/dL Normal 74-106 [facility] Comment on above: Performed By: #### C MP, LIPID #### [facility] [address] [place] [address] Dr. Vanessa Ordonez Potassium [Moles/Vol] 3.9 mmol/L Normal 3.4-5.0 [facility] Comment on above: Performed By: #### C MP, LIPID #### [facility] [address] [place] [address] Dr. Vanessa Ordonez Protein [Mass/Vol] 7.3 g/dL Normal 6.1-8.2 [facility] Comment on above: Performed By: #### C MP, LIPID #### [facility] [address] [place] [address] Dr. Vanessa Ordonez Sodium [Moles/Vol] 136 mmol/L Critically low 137-145 [facility] Comment on above: Performed By: #### C MP, LIPID #### [facility] [address] [place] [address] Dr. Vanessa Ordonez Urea nitrogen [Mass/Vol] 15.0 mg/dL Normal 9.0-20.0 [facility] Comment on above: Performed By: #### C MP, LIPID #### [facility] [address] [place] [address] Dr. Vanessa Ordonez Urea nitrogen/Creatinine [Mass ratio] 22.1 mg/mg Normal [facility] Comment on above: Performed By: #### C MP, LIPID #### [facility] [address] [place] [address] Dr. Vanessa Ordonez Vital Signs Date Time Vital Sign Value Performing Clinician Facility 02-03-2025 11:15-0400 Body height 180.3 cm DavionU-NOTElong DO Work Phone: [facility] [employer] [facility] 02-03-2025 11:15-0400 Body mass index (BMI) [Ratio] 22.49 kg/m2 Davion Furlong DO Work Phone: [facility] [employer] [facility] 02-03-2025 11:15-0400 Body temperature 98.1 [degF] Davion [employer] DO Work Phone: [facility] 02-03-2025 11:15-0400 Body weight 73.12 kg Davion [employer] DO Work Phone: [facility] 02-03-2025 11:15-0400 Diastolic blood pressure 68 mm[Hg] DavionAdarza [employer] DO Work Phone: [facility] 02-03-2025 11:15-0400 Heart rate 109 /min [employer] DO Work Phone: [facility] 02-03-2025 11:15-0400 Respiratory rate 18 /min [employer] DO Work Phone: [facility] 02-03-2025 11:15-0400 SaO2% (BldA) [Mass fraction] 98 % [employer] DO Work Phone: [facility] 02-03-2025 11:15-0400 Systolic blood pressure 100 mm[Hg] [employer] DO Work Phone: [facility] 01-27-2025 08:06-0400 Body temperature 97.7 [degF] Matthew Wilson MD Work Phone: [facility] [employer] 01-27-2025 08:06-0400 Diastolic blood pressure 78 mm[Hg] Matthew Wilson MD Work Phone: [facility] [employer] 01-27-2025 08:06-0400 Heart rate 78 /min Matthew Wilson MD Work Phone: [facility] [email or web address] 01-27-2025 08:06-0400 Respiratory rate 22 /min Matthew Wilson MD Work Phone: [facility] [email or web address] 01-27-2025 08:06-0400 SaO2% (BldA) [Mass fraction] 100 % Matthew Wilson MD Work Phone: [facility] [employer] 01-27-2025 08:06-0400 Systolic blood pressure 139 mm[Hg] Matthew Wilson MD Work Phone: [facility] [email or web address] 01-26-2025 06:00-0400 Body mass index (BMI) [Ratio] 22.59 kg/m2 Matthew Wilson MD Work Phone: [facility] [email or web address] 01-26-2025 06:00-0400 Body weight 73.48 kg Matthew Wilson MD Work Phone: [facility] [email or web address] 01-22-2025 03:54-0400 Body height 180.3 cm Matthew Wilson MD Work Phone: [facility] [email or web address] 01-13-2025 13:51-0400 Body height 180.3 cm [facility]On [facility] 01-13-2025 13:51-0400 Body mass index (BMI) [Ratio] 23.75 kg/m2 Davion Furlong [facility] 01-13-2025 13:51-0400 Body temperature 99.39 [degF] Dav[facility] 01-13-2025 13:51-0400 Body weight 77.2 kg Davion Furlong DO [facility] 01-13-2025 13:51-0400 Diastolic blood pressure 72 mm[Hg] Davion Furlong DO Work Phone: [facility] 01-13-2025 13:51-0400 Heart rate 78 /min Davion Furlong DO Work Phone: [facility] 01-13-2025 13:51-0400 Respiratory rate 18 /min Davion Furlong DO Work Phone: [facility] 01-13-2025 13:51-0400 SaO2% (BldA) [Mass fraction] 97 % Davion Furlong DO Work Phone: [facility] 01-13-2025 13:51-0400 Systolic blood pressure 118 mm[Hg] Davion Furlong DO Work Phone: [facility] 01-04-2025 11:00-0400 Hourly Rounding April [facility] 01-04-2025 11:00-0400 Promise to Return Grisamed [facility] 01-04-2025 10:00-0400 Diastolic blood pressure 66 mm[Hg] Mohamed [facility] 01-04-2025 10:00-0400 Heart rate 78 /min Grisamed [facility] 01-04-2025 10:00-0400 Hourly Rounding Grisamed [facility] 01-04-2025 10:00-0400 Mean blood pressure 84 mm[Hg] Mohamed [facility] 01-04-2025 10:00-0400 Promise to Return Mohamed [facility] 01-04-2025 10:00-0400 Respiratory rate 12 /min Grisamed [facility] 01-04-2025 10:00-0400 Systolic blood pressure 124 mm[Hg] April Thompson [facility] 01-04-2025 09:41-0400 Hourly Rounding April Thompson [facility] 01-04-2025 09:41-0400 Promise to Return April Thompson [facility] 01-04-2025 09:00-0400 Diastolic blood pressure 69 mm[Hg] April Thompson [facility] 01-04-2025 09:00-0400 Heart rate 84 /min April Thompson [facility] 01-04-2025 09:00-0400 Mean blood pressure 91 mm[Hg] April Thompson [facility] 01-04-2025 09:00-0400 Respiratory rate 14 /min April Thompson [facility] 01-04-2025 09:00-0400 SaO2% (BldA) [Mass fraction] 97 % April Thompson [facility] 01-04-2025 09:00-0400 Systolic blood pressure 129 mm[Hg] April Thompson [facility] 01-04-2025 08:00-0400 Body temperature 98.24 [degF] April Thompson [facility] 01-04-2025 08:00-0400 Diastolic blood pressure 75 mm[Hg] April [facility] 01-04-2025 08:00-0400 Diastolic Blood Pressure Invasive 62 mm[Hg] April Manriquean [facility] 01-04-2025 08:00-0400 Heart rate 76 /min April Thompson [facility] 01-04-2025 08:00-0400 Mean blood pressure 90 mm[Hg] April Thompson [facility] 01-04-2025 08:00-0400 Systolic blood pressure 142 mm[Hg] April Thompson [facility] 01-04-2025 08:00-0400 Systolic blood pressure 119 mm[Hg] April Thompson [facility] 01-04-2025 07:27-0400 SaO2% (BldA) [Mass fraction] 98 % April Thompson [facility] 01-04-2025 07:27-0400 Diastolic Blood Pressure Invasive 57 mm[Hg] April Thompson [facility] 01-04-2025 07:27-0400 Mean blood pressure 83 mm[Hg] April Thompson [facility] 01-04-2025 07:27-0400 Systolic blood pressure 134 mm[Hg] April Thompson [facility] 01-04-2025 07:00-0400 Diastolic Blood Pressure Invasive 61 mm[Hg] April Thompson [facility] 01-04-2025 07:00-0400 Systolic blood pressure 139 mm[Hg] April Thompson [facility] 01-04-2025 04:00-0400 Blood Pressure Location April Thompson [facility] 01-04-2025 00:00-0400 Blood Pressure Location April Thompson [facility] 01-04-2025 00:00-0400 Body temperature 97.88 [degF] April Thompson [facility] 01-03-2025 14:20-0400 Body temperature 97.52 [degF] April Manriquean [facility] 01-03-2025 13:55-0400 Body temperature 97.34 [degF] Mohrhett [facility] 01-03-2025 13:50-0400 Respiratory rate 20 /min Mohamed [facility] 01-03-2025 13:45-0400 Respiratory rate 15 /min Mohamed [facility] 01-03-2025 13:40-0400 Respiratory rate 12 /min April [facility] 12-27-2024 15:49-0400 Diastolic blood pressure 88 mm[Hg] April [facility] 12-27-2024 15:49-0400 Heart rate 69 /min April [facility] 12-27-2024 15:49-0400 Mean blood pressure 110 mm[Hg] April [facility] 12-27-2024 15:49-0400 Systolic blood pressure 155 mm[Hg] April [facility] 12-27-2024 15:48-0400 Heart rate 73 /min April [facility] 12-27-2024 15:48-0400 SaO2% (BldA) [Mass fraction] 99 % Mohamed [facility] 12-27-2024 15:48-0400 Diastolic blood pressure 82 mm[Hg] Mohamed [facility] 12-27-2024 15:48-0400 Mean blood pressure 107 mm[Hg] Mohrhett [facility] 12-27-2024 15:48-0400 Systolic blood pressure 158 mm[Hg] April Thompson [facility] 12-23-2024 09:58-0400 Body mass index (BMI) [Ratio] 23.71 kg/m2 April Thompson MD Work Phone: [facility] 12-23-2024 09:58-0400 Body temperature 97.39 [degF] April Thompson MD Work Phone: [facility] 12-23-2024 09:58-0400 Body weight 77.11 kg April Thompson MD Work Phone: [facility] 12-23-2024 09:58-0400 Diastolic blood pressure 70 mm[Hg] April Thompson MD Work Phone: [facility] 12-23-2024 09:58-0400 Heart rate 78 /min April Thompson MD Work Phone: [facility] 12-23-2024 09:58-0400 SaO2% (BldA) [Mass fraction] 98 % April Thompson MD Work Phone: [facility] 12-23-2024 09:58-0400 Systolic blood pressure 138 mm[Hg] April Thompson MD Work Phone: [facility] 12-02-2024 10:23-0400 Body height 180.3 cm April Thompson MD Work Phone: [facility] 12-02-2024 10:23-0400 Body mass index (BMI) [Ratio] 23.85 kg/m2 April Thompson MD Work Phone: [facility] 12-02-2024 10:23-0400 Body temperature 97.2 [degF] April Thompson MD Work Phone: [facility] 12-02-2024 10:23-0400 Body weight 77.56 kg April Thompson MD Work Phone: [facility] 12-02-2024 10:23-0400 Diastolic blood pressure 78 mm[Hg] April Thompson MD Work Phone: [facility] [employer] 12-02-2024 10:23-0400 Heart rate 88 /min April Thompson MD Work Phone: [facility] [employer] 12-02-2024 10:23-0400 SaO2% (BldA) [Mass fraction] 97 % April Thompson MD Work Phone: [facility] [employer] 12-02-2024 10:23-0400 Systolic blood pressure 138 mm[Hg] April Thompson MD Work Phone: [facility] [employer] 11-15-2024 08:30-0400 Body height 180.3 cm Davion Furlong DO Work Phone: [facility] [employer] 11-15-2024 08:30-0400 Body mass index (BMI) [Ratio] 24.27 kg/m2 Davion Furlong DO Work Phone: [facility] [employer] 11-15-2024 08:30-0400 Body temperature 97.59 [degF] Davion Furlong DO Work Phone: [facility] [employer] 11-15-2024 08:30-0400 Body weight 78.93 kg Davion Furlong DO Work Phone: [facility] [employer] 11-15-2024 08:30-0400 Diastolic blood pressure 68 mm[Hg] Davion Furlong DO Work Phone: [facility] [employer] 11-15-2024 08:30-0400 Heart rate 69 /min Davion Furlong DO Work Phone: [facility] [employer] 11-15-2024 08:30-0400 Respiratory rate 18 /min Davion Furlong DO Work Phone: [facility] [employer] 11-15-2024 08:30-0400 SaO2% (BldA) [Mass fraction] 97 % Davion Furlong DO Work Phone: [facility] [employer] 11-15-2024 08:30-0400 Systolic blood pressure 102 mm[Hg] Davion Furlong DO Work Phone: [facility] [employer] [facility] 07-08-2024 10:24-0500 Body mass index (BMI) [Ratio] 23.24 kg/m2 Davion Furlong DO Work Phone: [facility] [employer] [facility] 07-08-2024 10:24-0500 Body temperature 97.39 [degF] Davion Furlong DO Work Phone: [facility] [employer] [facility] 07-08-2024 10:24-0500 Body weight 75.57 kg Davion Furlong DO Work Phone: [facility] [employer] [facility] 07-08-2024 10:24-0500 Diastolic blood pressure 60 mm[Hg] Davion Furlong DO Work Phone: [facility] [employer] [facility] 07-08-2024 10:24-0500 Heart rate 78 /min Davion Jose De Jesuslong DO Work Phone: [facility] [employer] [facility] 07-08-2024 10:24-0500 SaO2% (BldA) [Mass fraction] 97 % Davion Jose De Jesuslong DO Work Phone: [facility] [employer] [facility] 07-08-2024 10:24-0500 Systolic blood pressure 100 mm[Hg] Davion Dela Cruzlong DO Work Phone: [facility] [employer] [facility] 08-22-2023 09:30-0500 Body height 180.3 cm Vesta Flores [employer]AND [employer]IFTER[employer]GER [employer] Work Phone: [facility] [employer] [facility] 08-22-2023 09:30-0500 Body mass index (BMI) [Ratio] 23.65 kg/m2 Vesta Flores [employer] Work Phone: [facility] [employer] [facility] 08-22-2023 09:30-0500 Body temperature 96.8 [degF] Vesta Flores APRN-MANAGER [employer] Work Phone: [facility] [employer] [facility] 08-22-2023 09:30-0500 Body weight 76.93 kg Vesta Flores [employer] Work Phone: [facility] [employer] [facility] 08-22-2023 09:30-0500 Diastolic blood pressure 64 mm[Hg] Vesta Flores APRN-MANAGER [employer] Work Phone: [facility] [employer] [facility] 08-22-2023 09:30-0500 Heart rate 74 /min Vesta Flores [employer] Work Phone: [facility] [employer] 08-22-2023 09:30-0500 SaO2% (BldA) [Mass fraction] 99 % Vesta Flores [employer] Work Phone: [facility] [employer] [facility] 08-22-2023 09:30-0500 Systolic blood pressure 104 mm[Hg] Vesta Flores [employer] Work Phone: [facility] [employer] [facility] 08-01-2023 13:10-0500 Blood Pressure Location Anish MORRISON [facility] [place] 08-01-2023 13:10-0500 Diastolic blood pressure 90 mm[Hg] Anish NILL [facility] [place] 08-01-2023 13:10-0500 Heart rate 76 /min Anish NILL [facility] [place] 08-01-2023 13:10-0500 Respiratory rate 16 /min Anish NILL [facility] [place] 08-01-2023 13:10-0500 Systolic blood pressure 156 mm[Hg] Anish NILL [facility] [place] 06-13-2023 09:47-0400 Blood Pressure Location Mellisa BECKER [facility] 06-13-2023 09:47-0400 Diastolic blood pressure 80 mm[Hg] Mellisa BECKER [facility] 06-13-2023 09:47-0400 Heart rate 65 /min Mellisa BECKER [facility] 06-13-2023 09:47-0400 Respiratory rate 16 /min Mellisa BECKER [facility] 06-13-2023 09:47-0400 Systolic blood pressure 136 mm[Hg] Mellisa BECKER [facility] 06-14-2022 10:28-0400 Blood Pressure Location Mellisajuana BECKER [facility] 06-14-2022 10:28-0400 Diastolic blood pressure 84 mm[Hg] Mellisa BECKER [facility] 06-14-2022 10:28-0400 Heart rate 74 /min Mellisa BECKER [facility] 06-14-2022 10:28-0400 Systolic blood pressure 144 mm[Hg] Mellisa BECKER [facility] Encounters Encounter Date Encounter Type Care Provider Facility Start: 06-24-2025 ambulatory Mellisa R BECKER Facili ty:[facility] [place] Start: 06-17-2025 ambulatory Mellisa R BECKER Facili ty:[facility] [place] Start: 03-28-2025 End: 03-28-2025 ambulatory April Thompson Facility:[facility] Start: 02-08-2025 End: 02-08-2025 ambulatory April Thompson Facility:[facility] Start: 02-08-2025 End: 02-08-2025 Patient encounter procedure April Thompson [facility] Start: 02-07-2025 End: 02-07-2025 Telephone encounter Robina Weinberg [facility] Start: 02-03-2025 End: 02-03-2025 Transitional care manage srvc 14 day discharge Davion Odom DO Work Phone: [facility] Comment on above: Idiopathic thrombocy topenic purpura (CMS-HCC) (Primary Dx); H. pylori infection; Abdominal aortic aneurysm (AAA) without rupture, unspecified part Start: 02-03-2025 End: 02-03-2025 ambulatory [facility] Start: 01-22-2025 End: 01-27-2025 Evaluation and management of inpatient Matthew Wilson MD Work Phone: [facility] Comment on above: H. pylori infection (Primary Dx); S/P AAA repair; Rash; Thrombocytopenia Start: 01-13-2025 End: 01-13-2025 Office outpatient visit 15 minutes Davion Dela Cruzaurelio KREN Work Phone: [facility] Comment on above: Abdominal aortic ane urysm (AAA) without rupture, unspecified part (Primary Dx); Ex-cigarette smoker; Elevated blood pressure reading Start: 01-13-2025 End: 01-13-2025 ambulatory [facility] Start: 01-03-2025 End: 01-04-2025 Evaluation and management of inpatient April Thompson [facility] Start: 12-27-2024 End: 12-27-2024 ambulatory April Thompson Facility:[facility] Start: 12-27-2024 End: 12-27-2024 Patient encounter procedure April Thompson [facility] Start: 12-23-2024 End: 01-04-2025 Pre-admission assessment April Thompson [facility] Start: 12-23-2024 End: 12-23-2024 Office outpatient visit 25 minutes April Thompson MD Work Phone: [facility] Comment on above: Abdominal aortic ane urysm (AAA) without rupture, unspecified part (Primary Dx) Start: 12-23-2024 End: 12-23-2024 ambulatory [facility] Start: 12-02-2024 End: 12-03-2024 Pre-admission assessment April Thompson [facility] Start: 12-02-2024 End: 12-02-2024 Office outpatient visit 25 minutes April Thompson MD Work Phone: [facility] Comment on above: Abdominal aortic ane urysm (AAA) without rupture, unspecified part (Primary Dx) Start: 12-02-2024 End: 12-02-2024 ambulatory [facility] Start: 11-29-2024 End: 11-29-2024 ambulatory [facility] Start: 11-29-2024 End: 11-29-2024 Encounter for other preprocedural examination [facility] Start: 11-25-2024 End: 11-25-2024 ambulatory [facility] Start: 11-25-2024 End: 11-25-2024 ambulatory [facility] Start: 11-19-2024 End: 11-19-2024 Telephone encounter Delphine Louis [facility] Comment on above: ultra sound result Aortic aneurysm with out rupture, unspecified portion of aorta (CMS-HCC) (Primary Dx) Start: 11-15-2024 End: 11-15-2024 Office outpatient visit 15 minutes Davion Odom DO Work Phone: [facility] Comment on above: Abdominal aortic ane urysm (AAA) without rupture, unspecified part (CMS-HCC) (Primary Dx); Cigarette smoker; Mixed hyperlipidemia Start: 11-15-2024 End: 11-15-2024 ambulatory DAVION ODOM [facility] Start: 07-09-2024 End: 07-12-2024 Telephone encounter Amparo Patel [facility] Start: 07-08-2024 End: 07-08-2024 ambulatory [facility] Start: 07-08-2024 Encounter for genera l adult medical examination without abnormal findings [facility] Start: 07-08-2024 End: 07-08-2024 Patient encounter status Davion Dela Cruzaurelio DO Work Phone: [facility] [employer] Work Phone: Start: 07-08-2024 End: 07-08-2024 Periodic preventive med est patient 40-64yrs Davion Dela Cruzaurelio [employer] [facility] [facility] Comment on above: Well adult health ch jaqueline (Primary Dx); Mixed hyperlipidemia; Cigarette nicotine dependence without complication; Elevated PSA Start: 07-08-2024 End: 07-08-2024 ambulatory [facility] Start: 07-08-2024 Encounter for genera l adult medical examination without abnormal findings [facility] Start: 06-09-2024 End: 06-09-2024 Troy Felipe [facility] Comment on above: Hyperlipidemia, unsp ecified Start: 04-26-2024 End: 04-29-2024 Telephone encounter Davion Odom DO [facility] Start: 08-22-2023 End: 08-22-2023 ambulatory VESTA SUAREZJohanny [facility] Start: 08-22-2023 End: 08-22-2023 Office outpatient visit 15 minutes Guera Kuns SAND SIFTER-MANAGER MONEY Work Phone: [facility] Comment on above: Mixed hyperlipidemia (Primary Dx); Tobacco abuse Start: 08-01-2023 End: 08-01-2023 Patient encounter procedure Anish MORRISON [facility] [place] Start: 06-13-2023 End: 06-13-2023 Patient encounter procedure Mellisa BECKER [facility] Start: 06-14-2022 End: 06-14-2022 Patient encounter procedure Mellisa BECKER [facility] Start: 06-06-2022 End: 06-07-[address] MELLISA BECKER Facility:[facility] Start: 02-08-2022 End: 02-09-[address] VESTA FLORES Facility:[facility] Start: 10-08-2021 End: 10-09-[address] MELLISA BECKER Facility:[facility] Start: 08-11-2021 Encounter for genera l adult medical examination without abnormal findings TRAE MCCLURE [facility] Start: 08-06-2021 End: 08-07-2021 ambulatory TRAE MCCLURE Facility:[facility] Start: 08-06-2021 End: 08-07-2021 Encounter for general adult medical examination without abnormal findings TRAE MCCLURE Facility:[facility] Start: 06-18-2021 ambulatory TRAE MCCLURE Facilit y:[facility]1 Procedures Date Procedure Procedure Detail Performing Clinician Start: 02-03-2025 Adult depression screening assessment Davion Silvaaurelio KERN Work Phone: Start: 01-27-2025 BASIC METABOLIC PANE L W/ REFLEX TO MG FOR LOW K Milind Corley MD Work Phone: Start: 01-27-2025 Blood count complete auto&auto difrntl wbc Milind Corley MD Work Phone: Start: 01-26-2025 Iaad ia kinga Mejia MD Work Phone: Start: 01-26-2025 BASIC METABOLIC PANE L W/ REFLEX TO MG FOR LOW K Milind Corley MD Work Phone: Start: 01-26-2025 Blood count complete auto&auto difrntl wbc Milind Corely MD Work Phone: Start: 01-25-2025 BASIC METABOLIC PANE L W/ REFLEX TO MG FOR LOW K Milind Corley MD Work Phone: Start: 01-25-2025 Blood count complete auto&auto difrntl wbc Milind Corley MD Work Phone: Start: 01-24-2025 Blood count complete auto&auto difrntl wbc Earlene Charles MD Work Phone: Start: 01-24-2025 BASIC METABOLIC PANE L W/ REFLEX TO MG FOR LOW K Milind Corley MD Work Phone: Start: 01-24-2025 Blood count complete auto&auto difrntl wbc Milind Corley MD Work Phone: Start: 01-24-2025 Hepatic function panel Milind Corley MD Work Phone: Start: 01-23-2025 Blood count complete auto&auto difrntl wbc Pérez Flynn MD Work Phone: Start: 01-23-2025 PREVIOUS SPECIMEN Giovany Wilson MD Work Phone: Start: 01-23-2025 SEROTONIN REL ASSAY Michelle Wilson MD Work Phone: Start: 01-23-2025 [id number] ACTIVITY Anel Flynn MD Work Phone: Start: 01-23-2025 Antibody rubella Chucky Flynn MD Work Phone: Start: 01-23-2025 IMMUNOTYPING, SERUM Gino Flynn MD Work Phone: Start: 01-23-2025 Protein electrophore tic fractj&quantj serum Pérez Flynn MD Work Phone: Start: 01-23-2025 VITAMIN B12 & FOLATE Dh christopher Flynn MD Work Phone: Start: 01-23-2025 BASIC METABOLIC PANE L W/ REFLEX TO MG FOR LOW K Milind Corley MD Work Phone: Start: 01-23-2025 Blood count complete auto&auto difrntl wbc Milind Corley MD Work Phone: Start: 01-22-2025 Us abdominal real ti me w/image limited Milind Corley MD Work Phone: Start: 01-22-2025 Ct thorax w/contrast material Robel Mccormack MD Work Phone: Start: 01-22-2025 Blood count complete auto&auto difrntl wbc Robel Mccormack MD Work Phone: Start: 01-22-2025 Acute hepatitis panel V tristan Joseph MD Work Phone: Start: 01-22-2025 TEG GLOBAL HEMOSTASI S WITH LYSIS Vitor Joseph MD Work Phone: Start: 01-22-2025 End: 01-22-2025 CULTURE, BLOOD 1 Vitor Joseph MD Work Phone: Start: 01-22-2025 Radiologic exam ches t single view Pérez Flynn MD Work Phone: Start: 01-22-2025 ARTERIAL BLOOD GAS, POC Matthew Wilson MD Work Phone: Start: 7 End: 01-22-2025 Gluc bld gluc mntr dev cleared fda spec home use Matthew Wilson MD Work Phone: Start: 01-22-2025 Antihuman globulin d irect each antiserum Pérez Flynn MD Work Phone: Start: 01-22-2025 BASIC METABOLIC PANE L W/ REFLEX TO MG FOR LOW K Pérez Flynn MD Work Phone: Start: 01-22-2025 End: 01-22-2025 Iadna s aureus methicillin resist amp probe tq Milind Corley MD Work Phone: Start: 01-22-2025 Urnls dip stick/tabl et rgnt auto w/o microscopy Vitor Joseph MD Work Phone: Start: 01-22-2025 BASIC METABOLIC PANE L W/ REFLEX TO MG FOR LOW K Matthew Wilson MD Work Phone: Start: 01-22-2025 End: 01-22-2025 Creatine kinase total Matthew chaidez MD Work Phone: Start: 01-22-2025 Hepatic function panel Matthew Wilson MD Work Phone: Start: 01-22-2025 MYOGLOBIN, BLOOD Mile Wilson MD Work Phone: Start: 01-22-2025 SURGICAL PATHOLOGY REPORT Matthew Wilson MD Work Phone: Start: 01-13-2025 Adult depression screening assessment Davion Odom DO Work Phone: Start: 01-03-2025 Aortic endovascular stent graft April Thompson Comment on above: EVAR Start: 11-15-2024 Adult depression screening assessment Davion Odom DO Work Phone: Start: 07-08-2024 Follow-up visit Follow-up DAVION ODOM Start: 07-08-2024 Adult depression screening assessment Davion Odom DO Work Phone: Start: 08-22-2023 Adult depression screening assessment Vesta Flores SAND SIFTER[employer]MANAGER [employer] Work Phone: Start: 06-06-2022 PSA screening TRAE DASILVA Comment on above: Performed By: #### P SAD #### [facility] [address] [place] [address] Dr. Vanessa Ordonez Start: 08-06-2021 PSA screening TRAE DASILVA Comment on above: Performed By: #### P [facility] #### [facility] [address] [place] [address] Dr. Vanessa Ordonez None (qualifier value) Clint isiah MORRISON Plan of Treatment Date Care Activity Detail Author Start: 2035 Respiratory Syncytial Virus (RSV) or age 60 yrs+ (1 - 1-dose 75+ series) Respiratory Syncytial Virus (RSV) or age 60 yrs+ (1 - 1-dose 75+ series) [facility] Start: 02-03-2026 Adult BMI Screening Adult BMI Screening [facility] Start: 02-03-2026 Depression Screening Depression Screening [facility] Start: 02-03-2026 Tobacco Screening Tobacco Screening [facility] Start: 01-05-2026 Tobacco Counseling Tobacco Counseling [facility] Start: 12-23-2025 Adult BMI Screening Adult BMI Screening [facility] Start: 12-23-2025 Tobacco Screening Tobacco Screening [facility] Start: 12-02-2025 Adult BMI Screening Adult BMI Screening [facility] Start: 11-25-2025 Adult BMI Screening Adult BMI Screening [facility] Start: 11-25-2025 Tobacco Screening Tobacco Screening [facility] Start: 11-15-2025 Adult BMI Screening Adult BMI Screening [facility] Start: 11-15-2025 Depression Screening Depression Screening [facility] Start: 11-15-2025 Tobacco Screening Tobacco Screening [facility] Start: 09-01-2025 DTaP,Tdap and Td Vaccines (1 - Tdap) DTaP,Tdap and Td Vaccines (1 - Tdap) [facility] Comment on above: Postponed from 1979 (Patient Refus ed) Start: 07-11-2025 End: 07-11-2025 Patient encounter procedure 07/11/2025 10:30 AM EST Office Visit [facility] [address] [place] [address] Davion Odom, DO [address] [place] [address] [facility] Start: 07-08-2025 Adult BMI Screening Adult BMI Screening [facility] Start: 07-08-2025 Depression Screening Depression Screening [facility] Start: 07-08-2025 Tobacco Screening Tobacco Screening [facility] Start: 07-06-2025 End: 07-06-2025 Patient encounter procedure 07/06/2025 10:15 AM EST Office Visit [facility] [address] [place] [address] Davion Odom DO [address], [facility] [place] [address] [facility] Start: 05-02-2025 Influenza vaccination Influenza Vaccine [facility] Start: 04-01-2025 Influenza vaccination Flu vaccine (Season Ended) [facility] Start: 02-20-2025 Tobacco Counseling Tobacco Counseling [facility] Start: 02-03-2025 End: 01-27-2026 CBC W Auto Differential panel - Blood CBC with Auto Differential Lab Routine H. pylori infection S/P AAA repair Expected: 02/03/2025 (Approximate), Expires: 01/27/2026 [facility] Comment on above: Expected: 02/03/2025 (Approximate), Expi res: 01/27/2026 Start: 02-02-2025 End: 02-02-2025 Patient encounter procedure 02/02/2025 5:00 PM EDT Office Visit [facility] Part of [address] [address] Darryl Hendrix MD [address] [place] [address] F/U hospital stay low platelets [facility] Part of [facility] Comment on above: F/U hospital stay low platelets Start: 11-15-2024 End: 11-15-2025 US Retroperitoneum limited Ultrasound retroperitoneal limited Imaging Routine Abdominal aortic aneurysm (AAA) without rupture, unspecified part ([facility]) Expected: 11/15/2024, Expires: 11/15/2025 [facility] Work Phone: Comment on above: Expected: 11/15/2024, Expires: Start: 08-22-2024 Adult BMI Screening Adult BMI Screening [facility] Start: 08-22-2024 Depression Screening Depression Screening [facility] Start: 08-22-2024 Tobacco Screening Tobacco Screening [facility] Start: 07-08-2024 End: 07-08-2024 Patient encounter procedure 07/08/2024 10:30 AM EST Office Visit [facility] [address] [place] [address] Davion Odom DO [address], [facility] [place] [address] [facility] Start: 05-02-2024 COVID-19 Vaccine ( season) COVID-19 Vaccine ( season) [facility] Start: 05-02-2024 Influenza vaccination Influenza Vaccine [facility] Start: 05-02-2023 Influenza vaccination Influenza Vaccine [facility] Start: 2010 Administration of varicella zoster vaccine Zoster (Shingles) Vaccine (1 of 2) [facility] Start: 2010 Pneumococcal 50+ years Vaccine (1 of 1 - PCV) Pneumococcal 50+ years Vaccine (1 of 1 - PCV) [facility] Start: 2010 Shingles vaccine (1 of 2) Shingles vaccine (1 of 2) [facility] Start: 2005 Screening for malignant neoplasm of colon [facility] Start: 1979 DTaP,Tdap and Td Vaccines (1 - Tdap) DTaP,Tdap and Td Vaccines (1 - Tdap) [facility] Start: 1979 DTaP/Tdap/Td vaccine (1 - Tdap) DTaP/Tdap/Td vaccine (1 - Tdap) [facility] [employer] Start: 1972 Depression Screen [facility] Screen [facility] Start: 1970 Lipid panel Lipids [facility] End: 01-22-2025 ONOFRE profile [facility] Comment on above: Once for 1 Occurrences starting 01/23/20 until 01/22/2025 End: 02-04-2025 Basic Metabolic Panel w/ Reflex to MG Basic Metabolic Panel w/ Reflex to MG Lab Routine Daily for 15 Days starting 01/22/2025 until 02/04/2025, 5 completed [facility] Work Phone: Comment on above: Daily for 15 Days starting 01/22/2025 un til 02/04/2025, 5 completed End: 01-27-2026 CBC panel - Blood by Automated count CBC Lab Routine H. pylori infection S/P AAA repair Rash Thrombocytopenia Twice a Week for 6 Occurrences starting 01/27/2025 until 01/27/2026 [facility] [employer] Comment on above: Twice a Week for 6 Occurrences starting 01/27/2025 until 01/27/2026 End: 02-04-2025 CBC W Auto Differential panel - Blood CBC with Auto Differential Lab Routine Daily for 15 Days starting 01/22/2025 until 02/04/2025, 5 completed [facility] Comment on above: Daily for 15 Days starting 01/22/2025 un til 02/04/2025, 5 completed End: 08-22-2024 Comprehensive metabolic 2000 panel - Serum or Plasma Comprehensive metabolic panel Lab Routine Mixed hyperlipidemia 1 Occurrences starting 08/22/2023 until 08/22/2024 [facility] Work Phone: Comment on above: 1 Occurrences starting 08/22/2023 until 08/22/2024 Continuous pulse oximetry Pulse oximetry, continuous Respiratory Care Routine Every 4hr until discontinued starting 01/24/2025 [facility] [employer] Comment on above: Every 4hr until discontinued starting Culture, Blood 1 [facility] [employer] End: 01-23-2025 Federico Herring Panel [facility] Comment on above: Once for 1 Occurrences starting 01/24/20 until 01/23/2025 End: 08-22-2024 Lipid panel Lipid panel Lab Routine Mixed hyperlipidemia 1 Occurrences starting 08/22/2023 until 08/22/2024 [employer] [facility] Comment on above: 1 Occurrences starting 08/22/2023 until 08/22/2024 Oxygen therapy [[facility] Data Set] Initiate Oxygen Therapy Protocol Respiratory Care Routine As Needed until discontinued starting 01/22/2025 [facility] Work Phone: Comment on above: As Needed until discontinued starting End: 01-22-2025 Respiratory care evaluation only Respiratory care evaluation only Respiratory Care Routine One Time for 1 Occurrences starting 01/22/2025 until 01/22/2025 [facility] Comment on above: One Time for 1 Occurrences starting 12/31 until 01/22/2025 Immunizations Immunization Date Immunization Notes Care Provider To sanchez NEGATED: Highlighted row has not occurred!08-01-2023 influenza virus vaccine, unspecified formulation Anish MORRISON [facility] [place] NEGATED: Highlighted row has not occurred!06-14-2022 SARS-CoV-2 mRNA (tozinameran 5y-11y) vaccine Mellisa BECKER [facility] Payers Date Payer Category Payer Managed Care Other (unspecified) [id number] 2024 Unknown [id number] 2024 Unknown [id number] 1.315 2003 Private Health Insurance [id number] 1.315 1960 Unknown [id number] 2.16.840.1.861732.3.579.2.593 1960 Unknown [id number] 2.16.840.1.039915.3.579.2.593 1960 Unknown [id number] 2.16.840.1.642168.3.579.2.593 1960 Unknown [id number] 2.16.840.1.666914.3.579.2.593 1960 Unknown [id number] 2.16.840.1.006775.3.579.2.593 1960 Unknown [id number] 2.16.840.1.589702.3.579.2.1286 1960 Unknown [id number] 2.16.840.1.122692.3.579.2.1286 1960 Unknown [id number] 2.16.840.1.676045.3.579.2.1286 1960 Unknown [id number] 2.16.840.1.690272.3.579.2.727 1960 Unknown [id number] 2.16.840.1.321233.3.579.2.727 1960 Unknown [id number] 2.16.840.1.569037.3.579.2.727 1960 Unknown [id number] 2.16.840.1.685147.3.579.2.1286 1960 Unknown [id number] 2.16.840.1.793620.3.579.2.1286 1960 Unknown [id number] 2.16.840.1.346395.3.579.2.1286 1960 Unknown [id number] 2.16.840.1.421560.3.579.2.1286 1960 Unknown [id number] 2.16.840.1.074634.3.579.2.1286 1960 Unknown [id number] 2.16.840.1.208337.3.579.2.1286 1960 Unknown [id number] 2.16.840.1.391657.3.579.2.1286 1960 Unknown [id number] 2.16.840.1.651091.3.579.2.727 1960 Unknown [id number] 2.16.840.1.126484.3.579.2.175 1960 Unknown [id number] 2.16.840.1.214047.3.579.2.727 1960 Unknown [id number] 2.16.840.1.473548.3.579.2.727 1960 Unknown [id number] 2.16.840.1.431378.3.579.2.727 1960 Unknown [id number] 2.16.840.1.948725.3.579.2.727 1960 Unknown [id number] 2.16.840.1.519346.3.579.2.727 1959 Private Health Insurance [id number] Self-pay [id number] Social History Date Type Detail Facility Start: 06-14-2022 End: 08-01-2023 Tobacco smoking status Light tobacco smoker (finding) [facility] Start: 1979 End: 12-22-2024 Tobacco smoking status Smoker (finding) [facility] Tobacco smoking status Never [facility] Start: 08-22-2023 End: 07-08-2024 Sex Assigned At Male [facility] Start: 08-22-2023 End: 11-25-2024 Tobacco smoking status MAIS Smokes tobacco daily [facility] [employer] [facility] Start: 1979 End: 12-22-2024 History of tobacco use Cigarette Smoker [facility] [employer] Start: 08-22-2023 End: 07-08-2024 Cigarettes smoked current (pack per day) - Reported [facility].5 [facility] Start: 08-22-2023 Tobacco use and exposure User of smokeless tobacco [facility] Start: 08-22-2023 End: 02-03-2025 Alcohol intake Ex-drinker (finding) [facility] Start: 1960 Sex Assigned At Not on file P [facility] Start: 07-08-2024 End: 01-22-2025 Tobacco use and exposure Smokeless tobacco non-user [facility] Has the [employer], or [employer] threatened to shut off services in your home in past 12Mo No [facility] Are you now , , , , never or living with a partner? [facility] How often to you hav e a drink containing alcohol? Never [facility] Do you feel stress - tense, restless, nervous, or anxious, or unable to sleep at night because your mind is troubled all the time - these days [OSQ] Not at all [facility] Start: 10-11-2012 End: 07-10-2022 Sex Male (finding) [facility] Start: 11-25-2024 End: 01-13-2025 Tobacco use and exposure Former smokeless tobacco user [facility] Sexual Orientation [facility] Start: 12-23-2024 End: 12-31-2024 Tobacco smoking status NHIS Ex-smoker [facility] Start: 12-23-2024 Tobacco Comment Reports quit 2 months ago [facility] Start: 01-22-2025 Alcoholic beverage intake Lifetime non-drinker (finding) [facility] (I/We) worried alexandro er (my/our) food would run out before (I/we) got money to buy more. Never true [facility] Medical Equipment Procedure Code Equipment Code Equipment Origin al Text Equipment Identifier Dates EVAR Unknown 01/03 Unknown Abdominal Aorta FDA Start: 01-03-2025 FDA Start: 01-03-2025 FDA Start: 01-03-2025 EVAR Unknown 01/03 Unknown Abdominal Aorta FDA Start: 01-03-2025 FDA Start: 01-03-2025 FDA Start: 01-03-2025 EVAR Unknown 01/03 Unknown Abdominal Aorta FDA Start: 01-03-2025 FDA Start: 01-03-2025 FDA Start: 01-03-2025 Functional Status Date Assessment Result Facility 01-03-2025 Functional Status No [facility] 12-27-2024 Functional Status No [facility] 08-01-2023 Functional Status N/A [facility]23 Functional Status N/A [facility] 06-14-2022 Functional Status N/A [facility] Clinical Notes 06-14-2022 to 02-07-2025 Telephone Encounter - Robina Miles - 02/07/2025 11:04 AM EDTTelephone Encounter - Randa Whitehead CMA - 02/07/2025 11:04 AM EDTTelephone Encounter - Jessica Doty CMA - 02/07/2025 11:04 AM EDT Note Date & Type Note Facility 02-07-2025 Miscellaneous Notes Pt calling into short story writer after receiving a call Friday about a [...] as well. Best number for Ambrosio is [phone] Thank you! Adding Cydney Jain as Jessica is in Clinic today and wont have time for a call back. FYI Sales Coach spoke with Provider's MA, and she will contact patient with the follow through. - Patient last seen OV: 12/23/2024 Thank You Called patient and he is a [facility] patient , he will get lorene of the office staff who called him about the CT documented in this encounter [facility] 02-07-2025 Telephone encounter Note Pt calling into short story writer after receiving a call Friday about a [...] as well. Best number for Ambrosio is [phone] Thank you! Adding Cydney Jain as Jessica is in Clinic today and wont have time for a call back. [facility] 02-07-2025 Telephone encounter Note FYI Sales Coach spoke with Provider's MA, and she will contact patient with the follow through. - Patient last seen OV: 12/23/2024 Thank You [facility] 02-07-2025 Telephone encounter Note Called patient and he is a [facility] patient , he will get lorene of the office staff who called him about the CT [facility] 02-03-2025 History of Present illness Narrative Subjective Patient ID: Ambrosio Ramírez is a 64 y.o. male. The patient is here today for discharge follow up from hospital. Transition of Care Med Rec completed? Yes Discharged medications: Medications have been reviewed and reconciled with the most recent facility discharge document. Devin presents today for a hospital follow-up. 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 He was having some bleeding issues at the site of his incisions. He went to the ER and they did blood tests and then transferred him to [facility]. He saw the blood specialists there. He was told that he had low platelets likely due from Helicobacter pylori infection. He might have gotten it from surgery. He had no heartburn issues. He is currently on antibiotics to treat the infection. He does not have any bleeding issues at this time. He does have little bruising on the back of his right hand and in his antecubital fossa from [facility]. He would like his wounds checked. It has been 1 month since he had his aneurysm repaired. They put new dressings on last week at the hospital. He is not taking them off since. He was not told what he can and can not do when he left the hospital. After the surgery was told not to lift greater than 50 lb. They did mentioned that he should not cut himself. He saw the video player mechanic yesterday and his platelet count was improving. He is on prednisone and does note that he sometimes gets dizzy when he gets up too fast. He admits that he does not drink any water. He is also having issues with constipation. He goes every other day but his stools are a 5 on the Castro stool scale. He admits to eating very [...] of right hand and in the antecubital fossa on the right arm) present. Neurological: General: No [...] Hematology as directed. Finish prednisone. Encouraged to drink more fluids the see if that helps with [...] a small linear scab but no drainage or bleeding noted. There was no redness or swelling. The left incision is closed entirely. Skin was intact with no redness or swelling. documented in this encounter [facility] 01-27-2025 History of Present illness Narrative Patient educated on discharge instructions Pt has no rx coverage and high copays; RN called rx to state that pt wants to get them filled at his pharmacy- short story writer asked RN to have dr ag and re-send Images from the original note were not [...] who is transferred from outside facility to [facility] for higher level of care. 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 No [...] doses 01/27/25 02/09/25 Yes Melisa Mejia MD rosuvastatin (CRESTOR) 10 MG tablet Take 1 tablet by mouth nightly for 30 doses 01/27/25 02/26/25 Yes Melisa Mejia MD bismuth subsalicylate (PEPTO BISMOL) 262 [...] Melisa Mejia MD 30 mL at 01/27/25 08 pantoprazole (PROTONIX) tablet 40 mg 40 mg Oral BID AC Melisa Mejia MD 40 mg at 01/27/25 05 tetracycline (ACHROMYCIN;SUMYCIN) capsule 500 mg 500 mg Oral 4x Daily Melisa Mejia MD 500 mg at 01/27/25 08 metroNIDAZOLE (FLAGYL) tablet 500 mg 500 mg Oral 4 times per day Melisa Mejia MD 500 mg at 01/27/25 05 rosuvastatin (CRESTOR) tablet 10 mg 10 mg Oral Nightly Earlene Charles MD 10 mg at 01/26/25 2018 sodium chloride flush 0.9 % injection 5-40 mL 5-40 mL IntraVENous 2 times per day Vitor Joseph MD 10 mL at 01/27/25817 sodium chloride flush 0.9 % injection 5-40 [...] 2.5 mg 2.5 mg Nebulization Q4H PRN Matthew Wilson MD Allergies: Heparin Social History: reports [...] for nausea, vomiting, diarrhea, constipation, abdominal pain, Dysphagia, hematemesis and hematochezia Genitourinary: negative for frequency, dysuria, [...] EXAM: BP 139/78 Pulse 78 Temp 97.7 F (36.5 C) (Oral) Resp 22 Ht 1.803 m (5' 11 ) Wt 73.5 kg (162 lb) SpO2 100% BMI 22.59 kg/m Temp (24hrs), Av.7 F (36.5 C), Min:97.3 F (36.3 C), Max:97.9 F (36.6 C) General appearance - well appearing, no in [...] NEGATIVE Ketones, Urine NEGATIVE NEGATIVE mg/dL Specific [place], UA 1.052 (H) 1.005 - 1.030 Urine [...] Granulocytes Absolute 0.06 0.00 - 0.30 k/uL [id number] ACTIVITY Result Value Ref Range [id number] Activity >100 >=61 % Vitamin B12 & Folate Result Value Ref Range Vitamin B-12 624 232 - 1245 pg/mL Folate 11.7 4.8 - 24.2 ng/mL Electrophoresis Protein, Serum Result Value Ref Range Total Protein 8.3 6.6 - 8.7 g/dL Albumin (calculated) 3.1 (L) 3.2 - 5.2 g/dL Albumin % 37 (L) 56 - 66 % Njant-8-Pktkzcjb 0.4 0.1 - 0.4 g/dL Alpha 1 % 5 3 - 5 % Furak-8-Jxsryyln 1.0 (H) 0.5 - 0.9 g/dL Alpha [...] Value Ref Range Heparin Type Porcine Heparin KMI Heparin Platelet Antibody Negative Negative KIM Porc Low Dose 3 % KIM Porc High Dose 0 % SEROTONIN RELEASING ASSAY See Note SURGICAL PATHOLOGY REPORT Result Value Ref Range Surgical Pathology Report [id number] [facility] ANATOMIC PATHOLOGY [address] [place] [address]. [place], [place] [address] SURGICAL PATHOLOGY CONSULTATION Patient Name: AMBROSIO RAMÍREZ V. MR#: [id number] Specimen #[id number] Procedures/Addenda PERIPHERAL BLOOD REPORT Date Ordered: 01/23/2025 Status: Signed Out Date Complete: 01/25/2025 By: Tamanna Gonzales M.D. Date Reported: 01/25/2025 INTERPRETATION Peripheral blood: - Normocytic red blood cells with unremarkable morphology. - White blood cells with normal morphology. No blasts. - Marked thrombocytopenia. RESULTS-COMMENTS PERIPHERAL BLOOD STUDY CBC: Please see the electronic health record for CBC parameters ([id number], 01/22/2025, 04:18). PLATELETS: Marked thrombocytopenia. LEUKOCYTES: White [...] DIRECT ANTIGLOBULIN TEST Result Value Ref Range JAJA, Polyspecific NEGATIVE IMAGING DATA: CT CHEST W [...] Patient can follow-up at our office in [facility] Robel Mccormack M.D. This note is created with the assistance of a speech recognition program. While intending to generate a document that actually reflects the content of the visit, the document can still have some errors including those of syntax and sound a like substitutions which may escape proof reading. It such instances, actual meaning can be extrapolated by contextual diversion. Images from the original note were not included. [facility] Office: [phone] Harman Canada DO, Jose Alfredo Spear DO, Jose Yanes DO, Errol Mullins DO, Bridget Galarza MD, Zoë Ulrich MD, Mani Lopez MD, Cristela Raphael MD, Agustín Solorio MD, Preet Callahan MD, Melisa Mejia MD, Rolando Batista DO, Peri Strong MD, John Calix MD, Anish Canada DO, Felicia Capps MD, Tiburcio Duran DO, Naty Blankneship MD, Maryjo Murrell MD, Gopal Isabel MD, Reese Russell MD, Carroll Duque MD, Kirit Bowles MD, Agustin Obrien MD, Tyree Cuevas MD, Victor Manuel Carcamo MD, Mark Carrillo DO, Vanessa Cook MD, Alfa Cardozo DO, Tab Luis MD, Rolando Mercado MD, Jenna Mercado MD, Nguyen Estrada MD, Samantha Betts CNP, Gertrude Currie CNP, Mark Mata CNP, Daphne Piña, FABIANA, Nicole Olivas, OSTOMY RN, Alesha Hutchison OSTOMY RN, Mary Sands OSTOMY RN, Chanel Price, OSTOMY RN, Lisbeth Desai, PADannyC, Danelle Rosas, OSTOMY RN, Velma De La Cruz, OSTOMY RN, Kathya Kim, OSTOMY RN, Corina Hayward, OSTOMY RN, Taurus Esteban, PADannyC, Linda Chino, OSTOMY RN, Alicia Blackman, CLINICAL FACULTY, Mendy Fajardo, MOOSE, Nedra Isbell, OSTOMY RN, Itzel Luna, OSTOMY RN [facility] IN-PATIENT SERVICE [facility] Progress Note 01/27/2025 9:16 AM Name: Ambrosio Ramírez Acct: [id number] Room: [address] [place] [address] Day: 5 Admit Date: 01/22/2025 3:32 AM PCP: Davion Odom DO Code Status: Full Code Subjective: C/C: [...] Vitals: BP 139/78 Pulse 78 Temp 97.7 F (36.5 C) (Oral) Resp 22 Ht 1.803 m (5' 11 ) Wt 73.5 kg (162 lb) SpO2 100% BMI 22.59 kg/m Temp (24hrs), Av.7 F (36.5 C), Min:97.3 F (36.3 C), Max:97.9 F (36.6 C) No results for input(s): POCGLU in the last 72 hours. I/O (24Hr): Intake/Output Summary (Last 24 hours) at 01/27/2025 0916 Last data filed at 01/27/2025 0613 Gross per 24 hour Intake -- Output 1150 ml Net -1150 ml Labs: Hematology: Recent Labs 01/25/25 0632 01/26/25 03001/27/25 0604 WBC 9.5 9.9 7.5 RBC 3.63* [...] results for input(s): LABALBU , LABA1C , M0YJMGY , FT4 , TSH , AST , ALT , LDH , GGT , ALKPHOS , BILITOT , BILIDIR , AMMONIA , AMYLASE , LIPASE , LACTATE , CHOL , HDL , CHOLHDLRATIO , TRIG , VLDL , WLL45GB , PHENYTOIN , PHENYF , URICACID , POCGLU in the last 72 hours. Invalid input(s): PROT , Q0LNEND , LABGGT , LDLCHOLESTEROL ABG: Lab Results Component Value Date/Time POCPH 7.511 01/22/2025 10:30 AM POCPCO2 27.3 01/22/2025 10:30 AM POCPO2 87.1 01/22/2025 10:30 AM POCHCO3 21.9 01/22/2025 10:30 AM PBEA 0.2 01/22/2025 10:30 AM ALOH2ZVX 97.7 01/22/2025 10:30 AM Lab Results Component [...] if continued improvement can follow up with PCP about restarting aspirin. Melisa Mejia MD 01/27/2025 9:16 AM Images from the original note were not included. [facility] Office: [phone] Harman Canada DO, Jose Alfredo Spear DO, Jose Yanes DO, Errol Mullins DO, Bridget Galarza MD, Zoë Ulrich MD, Mani Lopez MD, Cristela Raphael MD, Agustín oSlorio MD, Preet Callahan MD, Melisa Mejia MD, Rolando Batista DO, Peri Strong MD, John Calix MD, Anish Canada DO, Felicia Capps MD, Tiburcio Duran DO, Nayt Blankenship MD, Maryjo Murrell MD, Gopal Isabel MD, Reese Russell MD, Carroll Duque MD, Kirit Bowles MD, Agustin Obrien MD, Tyree Cueavs MD, Victor Manuel Carcamo MD, Mark Carrillo DO, Vanessa Cook MD, Alfa Cardozo DO, Tab Luis MD, Rolando Mercado MD, Jenna Mercado MD, Nguyen Estrada MD, Samantha Betts CNP, Gertrude Currie CNP, Mark Mata CNP, Daphne Piña, FABIANA, Nicole Olivas, OSTOMY RN, Alesha Hutchison OSTOMY RN, Mary Sands, OSTOMY RN, Chanel Price, OSTOMY RN, LIZETT ButlerC, Danelle Rosas OSTOMY RN, Velma De La Cruz, OSTOMY RN, Kathya Kim OSTOMY RN, Corina Hayward OSTOMY RN, LIZETT CansecoC, Linda Chino, OSTOMY RN, Alicia Blackman, CLINICAL FACULTY, Mendy Fajardo, OSTOMY RN, Nedra Isbell, OSTOMY RN, Itzel Luna, OSTOMY RN [facility] IN-PATIENT SERVICE [facility] Progress Note 01/26/2025 3:49 PM Name: Ambrosio Ramírez Acct: [id number] Room: [address] [place] [address] Day: 4 Admit Date: 01/22/2025 3:32 AM PCP: Davion Odom DO Code Status: Full Code Subjective: C/C: [...] BP (!) 109/58 Pulse 65 Temp 97.6 F (36.4 C) (Oral) Resp 17 Ht 1.803 m (5' 11 ) Wt 73.5 kg (162 lb) SpO2 98% BMI 22.59 kg/m Temp (24hrs), Av.7 F (36.5 C), Min:97.3 F (36.3 C), Max:98.2 F (36.8 C) No results for input(s): POCGLU in the [...] 10:30 AM PBEA 0.2 01/22/2025 10:30 AM HMGV3QTY 97.7 01/22/2025 10:30 AM Lab Results Component [...] Appreciate hematology oncology recommendations. Platelets are 17 slowly improving Hyperlipidemia continue Crestor History of AAA repair. At this time continue to hold aspirin as patient is still high risk for rebleeding Discussed with nurse during rounds Melisa Mejia MD 01/26/2025 3:49 PM Images from the original note were not [...] who is transferred from outside facility to [facility] for higher level of care. 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 No [...] tablet 40 mg 40 mg Oral QAM Pérez Carmona MD 40 mg at 01/26/25 0601 sodium chloride flush 0.9 % injection 5-40 mL 5-40 mL IntraVENous 2 times per day Vitor Joseph MD 10 mL at 01/25/25 2045 sodium chloride flush 0.9 % injection 5-40 [...] 2.5 mg 2.5 mg Nebulization Q4H PRN Matthew Wilson MD Allergies: Heparin Social History: reports [...] for nausea, vomiting, diarrhea, constipation, abdominal pain, Dysphagia, hematemesis and hematochezia Genitourinary: negative for frequency, dysuria, [...] EXAM: BP 122/69 Pulse 62 Temp 97.5 F (36.4 C) (Oral) Resp 16 Ht 1.803 m (5' 11 ) Wt 73.5 kg (162 lb) SpO2 100% BMI 22.59 kg/m Temp (24hrs), Av.7 F (36.5 C), Min:97.5 F (36.4 C), Max:98.2 F (36.8 C) General appearance - well appearing, no in [...] NEGATIVE Ketones, Urine NEGATIVE NEGATIVE mg/dL Specific [place], UA 1.052 (H) 1.005 - 1.030 Urine [...] Granulocytes Absolute 0.06 0.00 - 0.30 k/uL [id number] ACTIVITY Result Value Ref Range [id number] Activity >100 >=61 % Vitamin B12 & Folate Result Value Ref Range Vitamin B-12 624 232 - 1245 pg/mL Folate 11.7 4.8 - 24.2 ng/mL Electrophoresis Protein, Serum Result Value Ref Range Total Protein 8.3 6.6 - 8.7 g/dL Albumin (calculated) 3.1 (L) 3.2 - 5.2 g/dL Albumin % 37 (L) 56 - 66 % Nknnu-2-Eynvrcdh 0.4 0.1 - 0.4 g/dL Alpha 1 % 5 3 - 5 % Qpzsb-0-Mlngkbyt 1.0 (H) 0.5 - 0.9 g/dL Alpha [...] Result Value Ref Range Surgical Pathology Report [id number] [facility] ANATOMIC PATHOLOGY [address] [place] [address]. [place], [place] [address] SURGICAL PATHOLOGY CONSULTATION Patient Name: AMBROSIO RAMÍREZ V. MR#: [id number] Specimen #[id number] Procedures/Addenda PERIPHERAL BLOOD REPORT Date Ordered: 01/23/2025 Status: Signed Out Date Complete: 01/25/2025 By: Tamanna Gonzales M.D. Date Reported: 01/25/2025 INTERPRETATION Peripheral blood: - Normocytic red blood cells with unremarkable morphology. - White blood cells with normal morphology. No blasts. - Marked thrombocytopenia. RESULTS-COMMENTS PERIPHERAL BLOOD STUDY CBC: Please see the electronic health record for CBC parameters ([id number], 01/22/2025, 04:18). PLATELETS: Marked thrombocytopenia. LEUKOCYTES: White [...] DIRECT ANTIGLOBULIN TEST Result Value Ref Range JAJA, Polyspecific NEGATIVE IMAGING DATA: CT CHEST W [...] with platelet count less than 10,000 Continue to monitor platelet count closely. We will continue to follow Final recommendations to follow after discussing with attending physician, Dr. Mccormack Discussed with patient and Nurse. Thank you for asking us to see this patient. YANCY Samuels CNP [facility] Hematology/Oncology 01/26/2025 I have discussed the care of this patient and I have personally examined the patient myselft and taken ros and hpi , including pertinent history and exam findings, labs, imaging , medication ad other relavent clincal data. I have reviewed the elliott elements of all parts of the encounter with the Nurse Practitioner . I agree with the assessment, plan and orders as documented by the [facility] with the following addendum More than 50% [...] meaning can be extrapolated by contextual diversion. Images from the original note were not included. [facility] Office: [phone] Harman Canada DO, Jose Alfredo Spear DO, Jose Yanes DO, Errol Mullins DO, Bridget Galarza MD, Zoë Ulrich MD, Mani Lopez MD, Cristela Raphael MD, Agustín Solorio MD, Preet Callahan MD, Melisa Mejia MD, Rolando Batista DO, Peri Strong MD, John Calix MD, Anish Canada DO, Felicia Capps MD, Tiburcio Duarn DO, Naty Blankenship MD, Maryjo Murrell MD, Gopal Isabel MD, Reese Russell MD, Carroll Duque MD, Kirit Bowles MD, Agustin Obrien MD, Tyree Cuevas MD, Victor Manuel Carcamo MD, Mark Carrillo DO, Vanessa Cook MD, Alfa Cardozo DO, Tab Luis MD, Rolando Mercado MD, Jenna Mercado MD, Nguyen Estrada MD, Samantha Betts, OSTOMY RN, Gertrude Currie, OSTOMY RN, Mark Mata, OSTOMY RN, Daphne Piña, [facility], Nicole Olivas, OSTOMY RN, Alesha Hutchison, OSTOMY RN, Mary Sands, OSTOMY RN, Chanel Price, OSTOMY RN, Lisbeth Desai, PA-C, Danelle Rosas, OSTOMY RN, Velma De La Cruz, OSTOMY RN, Kathya Kim, OSTOMY RN, Corina Hayward, OSTOMY RN, Taurus Esteban, PA-C, Linda Chino, OSTOMY RN, Alicia Blackman, CLINICAL FACULTY, Mendy Fajardo, OSTOMY RN, Nedra Isbell, OSTOMY RN, Itzel Luna, OSTOMY RN [facility] IN-PATIENT SERVICE [facility] Progress Note 01/25/2025 11:50 AM Name: Ambrosio Ramírez Acct: [id number] Room: [facility]/0441-01 IP Day: 3 Admit Date: 01/22/2025 3:32 AM PCP: Davion Odom DO Code Status: Full Code Subjective: Patient seen in follow-up for ITP, patient states I feel fine Patient feels well. He has multiple questions regarding ITP. Had long discussion with him about ITP and its pathogenesis. Multiple questions answered regarding this. [...] Vitals: BP 114/62 Pulse 63 Temp 97.5 F (36.4 C) (Oral) Resp 14 Ht 1.803 m (5' 11 ) Wt 66 kg (145 lb 9.6 oz) SpO2 100% BMI 20.31 kg/m Temp (24hrs), Av.4 F (36.3 C), Min:97.3 F (36.3 C), Max:97.6 F (36.4 C) No results for input(s): POCGLU in the [...] 10:30 AM PBEA 0.2 01/22/2025 10:30 AM RVRJ3MVE 97.7 01/22/2025 10:30 AM Lab Results Component [...] Making: Gina Canada DO 01/25/2025 11:50 AM Images from the original note were not included. Today's Date: 01/25/2025 Patient Name: Ambrosio Ramírez Date of admission: 01/22/2025 3:32 AM Patient's age: 64 y.o., 1960 Admission Dx: Thrombocytopenia [D69.6] Reason for Consult: management recommendations Requesting Physician: Matthew Wilson MD CHIEF COMPLAINT: Thrombocytopenia. Rash. History [...] who is transferred from outside facility to [facility] for higher level of care. 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 No [...] 2.5 mg 2.5 mg Nebulization Q4H PRN Matthew Wilson MD Allergies: Heparin Social History: reports [...] for nausea, vomiting, diarrhea, constipation, abdominal pain, Dysphagia, hematemesis and hematochezia Genitourinary: negative for frequency, dysuria, [...] EXAM: BP 114/62 Pulse 63 Temp 97.5 F (36.4 C) (Oral) Resp 14 Ht 1.803 m (5' 11 ) Wt 66 kg (145 lb 9.6 oz) SpO2 100% BMI 20.31 kg/m Temp (24hrs), Av.4 F (36.3 C), Min:97.3 F (36.3 C), Max:97.6 F (36.4 C) General appearance - well appearing, no in [...] NEGATIVE Ketones, Urine NEGATIVE NEGATIVE mg/dL Specific [place], UA 1.052 (H) 1.005 - 1.030 Urine [...] Granulocytes Absolute 0.06 0.00 - 0.30 k/uL [id number] ACTIVITY Result Value Ref Range YQHMWK09 Activity >100 >=61 % Vitamin B12 & Folate Result Value Ref Range Vitamin B-12 624 232 - 1245 pg/mL Folate 11.7 4.8 - 24.2 ng/mL Electrophoresis Protein, Serum Result Value Ref Range Total Protein 8.3 6.6 - 8.7 g/dL Albumin (calculated) PENDING g/dL Albumin % PENDING % Wbqfg-5-Npwbhtlq PENDING g/dL Alpha 1 % PENDING % Ntbqf-8-Rhzbbsyh PENDING g/dL Alpha 2 % PENDING % [...] DIRECT ANTIGLOBULIN TEST Result Value Ref Range JAJA, Polyspecific NEGATIVE IMAGING DATA: CT CHEST W [...] for comparison. HISTORY: ORDERING SYSTEM PROVIDED HISTORY: [facility] TECHNOLOGIST PROVIDED HISTORY: [facility] FINDINGS: Mediastinum: Thoracic aorta is [...] with platelet count less than 10,000 Continue to monitor platelet count closely. We will continue to follow Final recommendations to follow after discussing with attending physician, Dr. Mccormack Discussed with patient and Nurse. Thank you for asking us to see this patient. YANCY Samuels CNP [facility] Hematology/Oncology 01/25/2025 I have discussed the care of this patient and I have personally examined the patient myselft and taken ros and hpi , including pertinent history and exam findings, labs, imaging , medication ad other relavent clincal data. I have reviewed the elliott elements of all parts of the encounter with the Nurse Practitioner . I agree with the assessment, plan and orders as documented by the [facility] with the following addendum More than 50% [...] meaning can be extrapolated by contextual diversion. Cafe Site Attendant called and provided report to ROSALIE Leon at this time on 4C. Platelets level critical of 8. Filament Tester notified okay with patient transferring out of ICU. Must be on fall precautions. Images from the original note were not included. Today's Date: 01/24/2025 Patient Name: Ambrosio Ramírez Date of admission: 01/22/2025 3:32 AM Patient's age: 64 y.o., 1960 Admission Dx: Thrombocytopenia [D69.6] Reason for Consult: management recommendations Requesting Physician: Matthew Wilson MD CHIEF COMPLAINT: Thrombocytopenia. Rash. History [...] who is transferred from outside facility to [facility] for higher level of care. 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 No [...] solution 20 g 20 g Oral Once Pérez Carmona MD pantoprazole (PROTONIX) tablet 40 mg 40 [...] 2.5 mg 2.5 mg Nebulization Q4H PRN Matthew Wilson MD dexAMETHasone (DECADRON) 40 mg in [...] for nausea, vomiting, diarrhea, constipation, abdominal pain, Dysphagia, hematemesis and hematochezia Genitourinary: negative for frequency, dysuria, [...] BP (!) 116/57 Pulse 64 Temp 97.6 F (36.4 C) (Oral) Resp 17 Ht 1.803 m (5' 11 ) Wt 66 kg (145 lb 9.6 oz) SpO2 99% BMI 20.31 kg/m Temp (24hrs), Av.8 F (36.6 C), Min:97.5 F (36.4 C), Max:98.2 F (36.8 C) General appearance - well appearing, no in [...] NEGATIVE Ketones, Urine NEGATIVE NEGATIVE mg/dL Specific [place], UA 1.052 (H) 1.005 - 1.030 Urine [...] (calculated) PENDING g/dL Albumin % PENDING % Wbide-9-Qpjihkfn PENDING g/dL Alpha 1 % PENDING % Fulms-0-Hqgcacmq PENDING g/dL Alpha 2 % PENDING % [...] DIRECT ANTIGLOBULIN TEST Result Value Ref Range JAJA, Polyspecific NEGATIVE IMAGING DATA: CT CHEST W [...] for comparison. HISTORY: ORDERING SYSTEM PROVIDED HISTORY: [facility] TECHNOLOGIST PROVIDED HISTORY: [facility] FINDINGS: Mediastinum: Thoracic [...] still suspect ITP primary or secondary. HIT typically does not lead to undetectable platelet counts transfuse [...] meaning can be extrapolated by contextual diversion. Critical care team - Resident sign-out to medicine service Date and time: 01/24/2025 3:16 PM Patient's name: Ambrosio Ramírez Patient's account/billing number: [id number] Patient's Date of : 1960 Age: 64 y.o. Date of Admission: 01/22/2025 3:32 AM Length of stay during current admission: 2 Primary Care Physician: Davion Odom DO Code Status: Full Code Mode of [...] who initially presented to the ER of [facility] with a chief concern of bleeding from the access site in the right groin for his AAA repair. As per the patient, he was taking shower when he noted spots of blood on the dressing at the exit site. Patient got concerned and went to the [facility]. At the outlying facility, patient was hemodynamically stable. He underwent lab work which was essentially unremarkable except for thrombocytopenia with platelet count of 4000. Patient was [...] groin as well. Patient was transferred to [facility] ICU for the concern of severe thrombocytopenia [...] than 2. His urinalysis is essentially unremarkable. Heme onc was consulted [...] BP (!) 116/57 Pulse 64 Temp 97.6 F (36.4 C) (Oral) Resp 17 Ht 1.803 m (5' 11 ) Wt 66 kg (145 lb 9.6 oz) SpO2 99% BMI 20.31 kg/m Cultures: Blood cultures: [] None drawn [x] [...] admitting resident will be following up the patient from now onwards on the floor. Ger Balbuena MD, M.D. PGY-1 IM Resident 01/24/2025, 3:16 PM Images from the original note were not included. Critical Care -Progress Note Patient's name: Ambrosio Ramírez Patient's account/billing number: [id number] Patient's Date of : 1960 Age: 64 y.o. Date of Admission: 01/22/2025 3:32 AM Date of History and Physical Examination: 01/24/2025 Primary Care Physician: Davion Odom DO Attending Physician: Dr Mart Caro Code Status: Full Code Chief complaint: No chief complaint on file. Today's Evaluation Subjective Evaluation: Patient denies any chest pain, nausea, vomiting, abdominal pain, change in bowel or bladder habits. Patient had snot from nose yesterday with some [...] who initially presented to the ER of [facility] with a chief concern of bleeding from the access site in the right groin for his AAA repair. As per the patient, he was taking shower when he noted spots of blood on the dressing at the exit site. Patient got concerned and went to the [facility]. At the outlying facility, patient was hemodynamically stable. He underwent lab work which was essentially unremarkable except for thrombocytopenia with platelet count of 4000. Patient was [...] groin as well. Patient was transferred to [facility] ICU for the concern of severe thrombocytopenia [...] SIGNS: BP 132/69 Pulse 71 Temp 97.7 F (36.5 C) (Oral) Resp 21 Ht 1.803 m (5' 11 ) Wt 66 kg (145 lb 9.6 oz) SpO2 100% BMI 20.31 kg/m Tmax over 24 hours: Temp (24hrs), Av.9 F (36.6 C), Min:97.6 F (36.4 C), Max:98.2 F (36.8 C) Patient Vitals for the past 8 hrs: BP Temp Temp src Pulse Resp SpO2 01/24/25 0800 132/69 97.7 F (36.5 C) Oral 71 21 100 % 01/24/25 0700 134/65 -- -- 64 15 100 % 01/24/25 0600 130/72 -- -- 65 14 98 % 01/24/25 0500 136/73 -- -- 60 16 100 % 01/24/25 0400 135/72 98.2 F (36.8 C) Oral 63 16 100 % 01/24/25 0300 [...] Net -1434.38 ml Date 01/24/25 0000 - 01/24/252358 Shift 7723-4470 9588-5883 4818-0043 24 Hour Total INTAKE Shift Total(mL/kg) OUTPUT Urine(mL/kg/hr) 700(1.3) 700 Shift Total(mL/kg) 700(10.6) 700(10.6) Weight (kg) 66 66 66 66 Wt Readings from Last 3 Encounters: 01/22/25 66 kg (145 lb 9.6 oz) Body mass index is 20.31 kg/m . PHYSICAL EXAM: Constitutional: No acute distress HEENT: [...] results found for: PHART , PH , YFI7IDX , PCO2 , PO2ART , PO2 , LPH6GMG , HCO3 , BEART , BE , THGBART , THB , WCS2LCT , O2SACSNR , O2SAT , FIO2 DATA: Complete Blood [...] Result Last 3 Blood Glucose: Recent Labs 01/22/258 01/22/25 0934 01/23/25 0402 01/24/25 0332 GLUCOSE [...] for comparison. HISTORY: ORDERING SYSTEM PROVIDED [facility] TECHNOLOGIST PROVIDED HISTORY: [facility] FINDINGS: Mediastinum: Thoracic [...] from constipation ID: Tmax: Temp (24hrs), Av.9 F (36.6 C), Min:97.6 F (36.4 C), Max:98.2 F (36.8 C) Temperature Range: Temp: 97.7 F (36.5 C) Temp Av.9 F (36.6 C) Min: 97.6 F (36.4 C) Max: 98.2 F (36.8 C) - WBC Lab Results Component Value Date [...] PGY-1 Department of Internal Medicine/ Critical care [place], [place] 01/24/2025 8:52 AM Attending Physician Statement [...] at least 35 Min so far today, excluding procedures. This note is created with the assistance of a speech recognition program. While intent was to generate a document that actually reflects the content of the visit, the document can still have some errors including those of syntax and sound-alike substitutions which may escape proof reading. It such instances, actual meaning can be extrapolated by contextual diversion. Mart Caro MD 01/24/2025 11:53 AM Images from the original note were not included. Today's Date: 01/23/2025 Patient Name: Ambrosio Ramírez Date of admission: 01/22/2025 3:32 AM Patient's age: 64 y.o., 1960 Admission Dx: Thrombocytopenia [D69.6] Reason for Consult: management recommendations Requesting Physician: Matthew Wilson MD CHIEF COMPLAINT: Thrombocytopenia. Rash. History Obtained From: patient, electronic medical record Interval history: Patient seen and examined Labs and vitals reviewed Platelet remains undetectable Patient denies noticing any bleeding Resting comfortably HISTORY OF PRESENT ILLNESS: The patient is a 64 y.o. male who is transferred from outside facility to [facility] for higher level of care. 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 No [...] 10 mg 10 mg IntraVENous Q4H PRN Mliind Corley MD albuterol (PROVENTIL) (2.5 MG/3ML) 0.083% nebulizer solution 2.5 mg 2.5 mg Nebulization Q4H PRN Matthew Wilson MD dexAMETHasone (DECADRON) 40 mg in [...] for nausea, vomiting, diarrhea, constipation, abdominal pain, Dysphagia, hematemesis and hematochezia Genitourinary: negative for frequency, dysuria, [...] BP (!) 115/54 Pulse 74 Temp 97.7 F (36.5 C) (Oral) Resp 17 Ht 1.803 m (5' 11 ) Wt 66 kg (145 lb 9.6 oz) SpO2 98% BMI 20.31 kg/m Temp (24hrs), Av.2 F (36.8 C), Min:97.7 F (36.5 C), Max:98.4 F (36.9 C) General appearance - well appearing, no in [...] NEGATIVE Ketones, Urine NEGATIVE NEGATIVE mg/dL Specific [place], UA 1.052 (H) 1.005 - 1.030 Urine [...] (calculated) PENDING g/dL Albumin % PENDING % Tekde-8-Gmmruuuq PENDING g/dL Alpha 1 % PENDING % Ktiku-1-Wnvltvnp PENDING g/dL Alpha 2 % PENDING % [...] DIRECT ANTIGLOBULIN TEST Result Value Ref Range JAJA, Polyspecific NEGATIVE IMAGING DATA: US LIVER SPLEEN [...] for comparison. HISTORY: ORDERING SYSTEM PROVIDED HISTORY: [facility] malignancy TECHNOLOGIST PROVIDED HISTORY: [...] meaning can be extrapolated by contextual diversion. Images from the original note were not included. Critical Care -Progress Note Patient's name: Ambrosio Ramírez Patient's account/billing number: [id number] Patient's Date of : 1960 Age: 64 y.o. Date of Admission: 01/22/2025 3:32 AM Date of History and Physical Examination: 01/23/2025 Primary Care Physician: Davion Odom DO Attending Physician: Dr Mart Caro Code Status: Full Code Chief complaint: No chief complaint on file. Today's Evaluation Subjective Evaluation: Patient denies any chest pain, nausea, vomiting, abdominal pain, change in bowel or bladder habits. Patient had snot from nose yesterday with some tinge of blood in it. Patient did not have any bowel movements yet today. Patient did not see any visible bleeding anywhere. Fresh general blood in the dressing on the right groin access site. No active bleeding noted. HISTORY OF PRESENT ILLNESS: Ambrosio Ramírez is a 64 y.o. male with a past medical history significant for hyperlipidemia, chronic smoker and AAA 5.2 cm status post repair who initially presented to the ER of [facility] with a chief concern of bleeding from the access site in the right groin for his AAA repair. As per the patient, he was taking shower when he noted spots of blood on the dressing at the exit site. Patient got concerned and went to the [facility]. At the outlying facility, patient was hemodynamically stable. He underwent lab work which was essentially unremarkable except for thrombocytopenia with platelet count of 4000. Patient was [...] groin as well. Patient was transferred to [facility] ICU for the concern of severe thrombocytopenia [...] SIGNS: BP 119/65 Pulse 72 Temp 97.9 F (36.6 C) (Oral) Resp 17 Ht 1.803 m (5' 11 ) Wt 66 kg (145 lb 9.6 oz) SpO2 100% BMI 20.31 kg/m Tmax over 24 hours: Temp (24hrs), Av.4 F (36.9 C), Min:97.9 F (36.6 C), Max:98.6 F (37 C) Patient Vitals for the past 8 hrs: BP Temp Temp src Pulse Resp SpO2 01/23/25 0400 119/65 -- Oral 72 17 100 % 01/23/25 0300 (!) 142/83 -- -- 84 19 100 % 01/23/25 0200 119/61 -- -- 64 14 98 % 01/23/25 0100 (!) 115/59 -- -- 66 14 100 % 01/23/25 0000 (!) 122/94 97.9 F (36.6 C) Oral 72 19 100 % Intake/Output Summary (Last 24 hours) at 01/23/2025 0758 Last data filed at 01/23/2025 0411 Gross per 24 hour Intake 1343.08 ml Output 1050 ml Net 293.08 ml Date 01/23/25 0000 - 01/23/25 2359 Shift 3807-7310 8452-6469 6600-4664 24 Hour Total INTAKE I.V.(mL/kg) 1295.5(19.6) 1295.5(19.6) IV Piggyback(mL/kg) 47.5(0.7) 47.5(0.7) Shift Total(mL/kg) 1343.1(20.3) 1343.1(20.3) OUTPUT Urine(mL/kg/hr) 650 650 Shift Total(mL/kg) 650(9.8) 650(9.8) Weight (kg) 66 66 66 66 Wt Readings from Last 3 Encounters: 01/22/25 66 kg (145 lb 9.6 oz) Body mass index is 20.31 kg/m . PHYSICAL EXAM: Constitutional: No acute distress HEENT: [...] results found for: PHART , PH , ISQ4PIZ , PCO2 , PO2ART , PO2 , VSA5PKF , HCO3 , BEART , BE , THGBART , THB , TEO2SPU , X3GDIWDD , O2SAT , FIO2 DATA: Complete Blood [...] for comparison. HISTORY: ORDERING SYSTEM PROVIDED HISTORY: [facility] malignancy TECHNOLOGIST PROVIDED HISTORY: [facility] malignancy FINDINGS: Mediastinum: Thoracic [...] as needed. ID: Tmax: Temp (24hrs), Av.4 F (36.9 C), Min:97.9 F (36.6 C), Max:98.6 F (37 C) Temperature Range: Temp: 97.9 F (36.6 C) Temp Av.4 F (36.9 C) Min: 97.9 F (36.6 C) Max: 98.6 F (37 C) - WBC Lab Results Component Value Date [...] MD Department of Internal Medicine/ Critical care [place], [place] 01/23/2025 7:58 AM The critical care [...] at least 35 Min so far today, excluding procedures. This note is created with the assistance of a speech recognition program. While intent was to generate a document that actually reflects the content of the visit, the document can still have some errors including those of syntax and sound-alike substitutions which may escape proof reading. It such instances, actual meaning can be extrapolated by contextual diversion. Mart Caro MD 01/23/2025 1:01 PM Advance Care Planning Advance Care Planning Inpatient Note Spiritual Care Department Today's Date: 01/22/2025 Unit: [facility]- MICU Received request from patient. Upon review of chart and communication with care team, patient's decision making abilities are not in question.. Patient was/were present in the room during visit. Goals of ACP Conversation: Discuss advance care planning documents Health Care Decision Makers: Steph Torres/ Sister in Law [address] [place] [address] [address] [address] Summary: Completed New Documents Dye Room Helper spoke to Health care Agent on phone. Advance Care Planning Documents (Patient Wishes): Healthcare Power of Backend Tester/Advance Directive Appointment of Health Care Agent Assessment: Health Care Agent consents to patient's wishes. Interventions: Assisted in the completion of documents according to patient's wishes at this time Care Preferences Communicated: No Outcomes/Plan: New advance directive completed. documented in this encounter [facility] 01-27-2025 Hospital Discharge instructions Mili Weinberg RN - 01/27/2025 9:41 AM EDT CBC 2x weekly documented in this encounter [facility] 01-27-2025 Hospital course Narrative Images from the original note were not included. [facility] Office: [phone] Harman Canada DO, Jose Alfredo Spear DO, Jose Yanes DO, Errol Mullins DO, Bridget Galarza MD, Zoë Ulrich MD, Mani Lopez MD, Cristela Raphael MD, Agustín Solorio MD, Preet Callahan MD, Melisa Mejia MD, Rolando Batista DO, Peri Strong MD, John Calix MD, Anish Canada DO, Felicia Capps MD, Tiburcio Duran DO, Naty Blankenship MD, Maryjo Murrell MD, Gopal Isabel MD, Reese Russell MD, Carroll Duque MD, Kirit Bowles MD, Agustin Obrien MD, Tyree Cuevas MD, Victor Manuel Carcamo MD, Mark Carrillo DO, Vanessa Cook MD, lAfa Cardozo DO, Tab Luis MD, Rolando Mercado MD, Jenna Mercado MD, Nguyen Estrada MD, Samantha Betts, OSTOMY RN, Gertrude Currie, OSTOMY RN, Mark Mata, OSTOMY RN, Daphne Piña, [facility], Nicole Olivas, OSTOMY RN, Alesha Hutchison, OSTOMY RN, Mary Sands, OSTOMY RN, Chanel Price, OSTOMY RN, Lisbeth Desai, PA-C, Danelle Rosas, OSTOMY RN, Velma De La Cruz, OSTOMY RN, Kathya Kim, OSTOMY RN, Corina Hayward, OSTOMY RN, Taurus Esteban, PA-C, Linda Chino, OSTOMY RN, Alicia Blackman, [facility], Mendy Fajardo, OSTOMY RN, Nedra Isbell, OSTOMY RN, Itzel Luna, OSTOMY RN [facility] IN-PATIENT SERVICE [facility] Discharge Summary Patient ID: Ambrosio Ramírez : 1960 ACCOUNT: [id number] Patient's PCP: Davion Odom DO Admit Date: 01/22/2025 Discharge Date: 01/27/2025 [...] plan: Disposition: Home Physician Follow Up: Davion Odom DO [address] [place] [address] Follow up Joseph Kwong MD [address] [facility] [id number] Follow up Requiring Further Evaluation/Follow [...] Your Medications These medications were sent to [facility] - [place], [place] - [address] - P [phone] - F [phone] [place] [address] metroNIDAZOLE 500 MG tablet pantoprazole 40 MG [...] 01/27/26 Order Comments: Forward results to Davion Odom DO CBC Standing Status: Standing Number of [...] this patient's care. documented in this encounter [facility] 01-13-2025 History of Present illness Narrative Subjective Patient ID: Ambrosio Ramírez is a 64 y.o. male. Harvey presents today for postop and blood pressure recheck. He said that he was told to follow up here for elevated blood pressure readings that he had while having a procedure done for AAA repair. He has no symptoms. He is recovering well from the surgery. He still has bandages on the op sites and was told that they would fall off on their own. One of them is getting a little itchy. He does not have a blood pressure cuff at home. He has not take any medication for blood pressure. Was never told that he had high blood pressure. He quit smoking in November. He does not miss cigarettes. The following portions of the patient's history were reviewed and updated as appropriate: allergies, current medications, past family history, past medical history, past social history, past surgical history, problem list, and medication reconciliation was completed including current medication and post discharge medication. Review of Systems Constitutional: Negative. Respiratory: Negative. Cardiovascular: Negative. Neurological: Negative. Psychiatric/Behavioral: Negative. Objective Physical Exam Vitals reviewed. Cardiovascular: Rate and Rhythm: Normal rate and regular rhythm. Pulses: Normal pulses. Heart sounds: Normal heart sounds. No murmur heard. Pulmonary: Effort: Pulmonary effort is normal. No respiratory distress. Breath sounds: Normal breath sounds. No wheezing, rhonchi or rales. Genitourinary: Comments: Op-site bandages in place over both groin incisions. No obvious redness swelling or drainage. Neurological: General: No focal deficit present. Mental Status: He is alert and oriented to person, place, and time. Psychiatric: Mood and Affect: Mood normal. Behavior: Behavior normal. Thought Content: Thought content normal. Judgment: Judgment normal. Assessment/Plan Ambrosio was seen today for f/u and surgery. Diagnoses and all orders for this visit: Abdominal aortic aneurysm (AAA) without rupture, unspecified part Doing well. He has an appointment next month with the surgeon. The op sites should fall off on their own. No signs of infection Ex-cigarette smoker He was congratulated on quitting smoking. After reviewing his smoking history does qualify for a low-dose CT scan of his lungs to screen for lung cancer. Risks and benefits were discussed. Patient declined the exam. He will think about it. Elevated blood pressure reading His blood pressure reading today was very good at 118/72. Upon leaving the hospital it was 129/69. Did have an arterial blood pressure line that was 142/84. I recommended to monitor his blood pressure at home. He will buy a blood pressure monitor and check it periodically. He does not have an obesity issue causing it. Recommended shingles vaccine but he declined. documented in this encounter [facility] 01-04-2025 Evaluation + Plan note Extrac ana from: Title:Discharge Note Author:Montrell Flaherty DO Date:01/04/25 Discharge To, Anticipated II - Home with responsible caregiver Prescriptions No active prescription medications Home Aspirin Low Dose 81 mg oral tablet, 1 tab, Oral, Daily rosuvastatin 10 mg Tab, 10 mg= 1 tab(s), Oral, Daily With When Contact Information Jay DEVINE, April Barboza Within 2 to 4 weeks [address] [place] [address]- Additional Instructions: Call for followup appointment and will need CTA run off prior to appt DAVION ODOM Within 7 to 10 days [address] [place] [address] [facility] (1) Additional Instructions: Call for followup appointment Call physician if symptoms worsen Abdominal Aortic Aneurysm Endograft Repair, Care After Abdominal Aortic Aneurysm Endograft Repair Extracted from: Title:ANES Post-operative Note---General Author: Parth Sparks Jr, DO Date:01/03/25 Plan Transfer/Discharge: Transfer/Discharge Discharge when meets criteria ( From PACU to ICU ). Extracted from: Title:Admission H & P Author:Montrell Flaherty DO Date:01/03/25 Patient will be admitted und er inpatient status due to estimated length of stay greater than 2 midnights. All images, labs, EKGs were reviewed DVT PPx PAS bilaterally, no chemical anticoagulation Diet regular CODE STATUS full code 1. AAA (abdominal aortic aneurysm) (I71.40: Abdominal aortic aneurysm, without rupture, unspecified) Status post EVAR 01/03 Strict blood pressure monitoring keep normotensive As needed hydralazine, as needed labetalol Vascular checks as per vascular surgeon No chemical anticoagulation Begin aspirin 01/04 Monitor in ICU Ordered: Initial Hospital Care/Day Moderate 55 Minutes 38466 2. Hyperlipidemia (E78.5: Hyperlipidemia, unspecified) Statin Orders: [...] Signs Regular Diet Resuscitation Status - Full Extracted from: Title:ANES Pre-operative Note 2024 Author:Parth Sparks Jr, DO Date:01/03/25 Plan [place] [employer] Anesthesiologists (ASA) physical status classification: Class III. Anesthetic Preoperative Plan: Anesthesia General, and Patient educated on benefits, alternatives and inherent risk of anesthesia including, but not all inclusive, Allergic reactions, dental damage, nerve damage and cardio-pulmonary complications and wishes to proceed with anesthetic plan.. Future Appointments Appointment Date:02/14/2025 09:15:00 AM Scheduled Provider:April Thompson MD Location:[facility]Vascular Clinic Appointment Type:Vascular Follow Up ([facility]) [facility] 05-06-2025 Hospital Discharge instructions Patient Education 01/04/2025 10:38:48 Abdominal Aortic Aneurysm Endograft Repair, Care After Abdominal Aortic Aneurysm Endograft Repair, Care After After abdominal aortic aneurysm endograft repair it is common to have pain or soreness at the incision site. You may also have tiredness (fatigue). Follow these instructions at home: Medicines Take gjzl-eta-gisdjbg and prescription medicines only as told by your health care provider. If you were prescribed antibiotics, take them as told by your provider. Do not stop using the antibiotic even if you start to feel better. Incision care Follow instructions from your provider about how to take care of your incisions. Make sure you: ?Wash your hands with soap and water for at least 20 seconds before and after you change your bandage (dressing). If soap and water are not available, use hand personal financial advisor. ?Change your dressing as told by your health care provider. ?Leave stitches (sutures), skin glue, or tape strips in place. These skin closures may need to stayin place for 2 weeks or longer. If tape strip edges start to loosen and curl up, you may trim the loose edges. Do not remove tape strips completely unless your provider tells you to do that. Check your incision area every day for signs of infection. Check for: ?Redness, swelling, or more pain. ?Fluid or blood. ?Warmth. ?Pus or a bad smell. Keep the incision area clean and dry. Check your incisions for a lump or swelling. These can be signs of bleeding at your incision site. Activity Rest as told by your provider. Do not sit for a long time without moving. Get up to take short walks every 1 2 hours. This will improve blood flow and breathing. Ask for help if you feel weak or unsteady. You may have to avoid lifting. Ask your provider how much you can safely lift. Do not drive or operate machinery until your provider says that it is safe. Return to your normal activities as told by your provider. Ask your provider what activities are safe for you. Lifestyle Do not use any products that contain nicotine or tobacco. These products include cigarettes, chewing tobacco, and vaping devices, such as e-cigarettes. These can delay incision healing after surgery.If you need help quitting, ask your provider. Make any lifestyle changes that your provider suggests. You may need to: ?Keep your blood pressure under control. ?Find ways to lower stress. ?Eat healthy foods that are good for your heart. These include vegetables, fruits, and whole grainsthat add fiber to your diet. ?Get regular exercise once your provider tells you it is safe to do so. General instructions Do not take baths, swim, or use a hot tub until your provider approves. Ask your provider if you may take showers. You may only be allowed to take sponge baths. Drink enough fluid to keep your pee (urine) pale yellow. Wear compression stockings as told by your provider. These stockings help to prevent blood clots and reduce swelling in your legs. Keep all follow-up visits. Your provider will need to monitor your healing and make sure the graft is working like it should. Your health care provider may give you more instructions. Make sure you know what you can and cannot do. Contact a health care provider if: You have pain in your abdomen, chest, legs, or back. You have any signs of infection. You have a fever. Get help right away if: You have trouble breathing. You have sudden pain in your legs, or you have trouble moving either of your legs. You feel light-headed, or you faint. These [...] provider. Document Revised: 03/25/2023 Document Reviewed: 03/25/2023 [employer] Patient Education 2023 Virtual 3-D Display for Smartphones. 01/04/2025 10:38:45 Abdominal Aortic Aneurysm Endograft Repair Abdominal Aortic Aneurysm Endograft Repair Abdominal aortic aneurysm endograft repair is surgery to fix an abdominal aortic aneurysm (AAA). Ananeurysm is a bulge in an artery. It happens when blood pushes against a weak or damaged artery wall. An AAA happens in the lower part of the main artery of the body (aorta). This repair may be done if the AAA: Causes pain in your back, abdomen, or side. Gets so large it might burst (rupture). A rupture is a medical emergency. It can cause bleeding inside your body. During the repair, a tube made of fabric and metal mesh (endograft or stent- graft) is put in the weak part of the aorta to fix it. Tell a health care provider about: Any allergies you have. All medicines you are taking, including vitamins, herbs, eye drops, creams, and aahy-wix-lnxbfcs medicines. Any problems you or family members have had with anesthesia. Any bleeding problems you have. Any surgeries you have had. Any medical conditions you have. Whether you are or may be . What are the risks? Your health care provider will talk with you about risks. These may include: Infection. Bleeding. Allergic reactions to medicines. Damage to nearby structures or organs. Blood leaking out around the graft. The endograft moving from where it was placed. Blocked blood flow through the graft. Other problems may include: Kidney problems. Blood clots. Blocked blood flow to the legs. This is rare. Rupture of the aorta, even after an endograft repair. This is rare. What happens before the procedure? When to stop eating and drinking Follow instructions from your provider about what you may eat and drink. These may include: 8 hours before your procedure ?Stop eating most foods. Do not eat meat, fried foods, or fatty foods. ?Eat only light foods, such as toast or crackers. ?All liquids are okay except energy drinks and alcohol. 6 hours before your procedure ?Stop eating. ?Drink only clear liquids, such as water, clear fruit juice, black coffee, plain tea, and sports drinks. ?Do not drink energy drinks or alcohol. 2 hours before your procedure ?Stop drinking all liquids. ?You may be allowed to take medicines with small sips of water. If you do not follow your provider's instructions, your procedure may be delayed or canceled. Medicines Ask your provider about: Changing or stopping your regular medicines. These include any diabetes medicines or blood thinnersyou take. Taking medicines such as aspirin and ibuprofen. These medicines can thin your blood. Do not take them unless your provider tells you to. Taking fkho-ouv-stecpuv medicines, vitamins, herbs, and supplements. Tests You may have tests done. These may include: Blood tests. Electrocardiogram (ECG). This test checks your heart rhythm. A stress test, if you have signs of heart problems. Imaging tests, such as ultrasound, CT scan, or MRI. These may be done to see where the aneurysm is and how big it is. Surgery safety Ask your provider: How your surgery site will be marked. What steps will be taken to help prevent infection. These steps may include: ?Removing hair at the surgery site. ?Washing skin with a soap that kills germs. ?Taking antibiotics. General instructions Do not use any products that contain nicotine or tobacco for at least 4 weeks before the procedure.These products include cigarettes, chewing tobacco, and vaping devices, such as e-cigarettes. If you need help quitting, ask your provider. If you will be going home right after the procedure, plan to have a responsible adult: ?Take you home from the hospital. You will not be allowed to drive. ?Care for you for the time you are told. What happens during the procedure? An IV will be inserted into one of your veins. You may be given: ?A sedative. This helps you relax. ?Anesthesia. This keeps you from feeling pain. It will make you fall asleep for surgery. Small incisions or a puncture will be made on one or both sides of your groin. Soft tubes (catheters) will be passed through the incisions. They will be moved up into the aneurysm in the aorta. With the help of X-ray pictures, your provider will guide the graft through the catheter to the aneurysm. The graft will be released to seal off the aneurysm and line the aorta. It will stay in place. It will not be taken out. X-rays will be used to make sure that the graft is correctly placed. The catheter will be taken out. The incision may be closed with stitches (sutures), skin glue, or tape strips. It may be covered with a bandage (dressing). The procedure may vary among providers and hospitals. What happens after the procedure? Your blood pressure, heart rate, breathing rate, and blood oxygen level will be monitored until youleave the hospital or clinic. You may be given pain medicine as needed. You will lie flat for a number of hours, without bending your legs. When told, you should get up and move around a number of times each day. Slowly become more active. Imaging tests may be done. These will check that the endograft was put in the right spot and that it is working like it should. Wear compression stockings as told by your provider. These stockings help to prevent blood clots and reduce swelling in your legs. This information is not intended to replace advice given to you by your health care provider. Make sure you discuss any questions you have with your health care provider. Document Revised: 03/25/2023 Document Reviewed: 03/25/2023 [employer] Patient Education 2023 Virtual 3-D Display for Smartphones. Follow [facility] 12/31/2024 11:17:32 With:Jay DEVINE, April Barboza Address: [address] [place] [address]- When:02/14/2025 09:15:00 Comments:Will need CTA run off prior to appt . The Cardiology office will get the order placed. Please call the office for futher instructions. Thank you. With:DAVION ODOM Address: [address] [place] [address] Lively (1) When:7 to 10 days Comments:Call for followup appointmentCall physician if symptoms worsen [facility] 05-06-2025 NotePatient Education - Text Procedures Abdominal Aortic Aneurysm Endograft Repair, Care After After abdominal aortic aneurysm endograft repair it is common to have pain or soreness at the incision site. You may also have tiredness (fatigue). Follow these instructions at home: Medicines ??? Take xwcx-pgv-cndsdyk and prescription medicines only as told by [...] and water are not available, use hand personal financial advisor. ? Change your dressing as told by [...] 03/25/2023 Document Reviewed: 03/25/2023 Elsevier Patient Education ? 2023 Virtual 3-D Display for Smartphones. Abdominal Aortic Aneurysm Endograft Repair Abdominal aortic aneurysm endograft repair is surgery to fix an abdominal aortic aneurysm (AAA). Ananeurysm is a bulge in an artery. It [...] is a medical emergency. It can cause bleedinginside your body. During the repair, a tube made of fabric and metal mesh (endograft or stent- graft) is put in the weak part of the aorta to fix it. Tell a health care provider about: ??? Any allergies you have. ??? All medicines you are taking, including vitamins, herbs, eye drops, creams, and kffp-sii-gfeqyvl medicines. ??? An (more content not included)...[facility]05-06-2025 Note Discharge Summary Admission and Discharge Information Admit [...] Barboza Within 2 to 4 weeks [address] [place] [address]- Additional Instructions: Call for followup appointment and will need CTA run off prior to appt DAVION ODOM Within 7 to 10 days [address] [place] [address] Business(1) Additional Instructions: Call for followup appointment Call physician if symptoms worsen Patient Education Abdominal Aortic Aneurysm Endograft Repair, Care After Abdominal Aortic Aneurysm Endograft RepairOhiohealth Dublin Methodist HospitalComment on above:Result Comment: Electronically Signed By: Montrell Flaherty DO\.br\Date and Time Signed: 01/04/25 10:43 [id number] NoteProgress Note-Physician Patient: AMBROSIO RAMÍREZ Age: 64 years [...] meets criteria ( From PACU to ICU ).[facility] HospitalComment on above:Result Comment: Electronically Signed By: Parth Sparks Jr, DO\.br\Date and Time Signed: 01/03/25 20:07 [id number] NoteProgress Note-Physician Patient: AMBROSIO RAMÍREZ Age: 64 years [...] list: All Problems Smoker / SNOMED CT 147925129 / Confirmed Added secondary to documentation in Social History. Elevated PSA / SNOMED CT 9462540165 / Confirmed Screening for malignant neoplasm of colon / SNOMED CT 561471526 / Confirmed BMI 25.0-25.9,adult / SNOMED CT 5056881703 / Confirmed Hyperlipidemia / SNOMED CT 73096563 / Confirmed Depression / SNOMED CT 35116505 / Confirmed BPH with obstruction/lower urinary tract symptoms / SNOMED CT 4368618203 / Confirmed AAA (abdominal aortic aneurysm) / SNOMED CT 924196290 / Confirmed Canceled: Enlarged prostate with urinary obstruction / SNOMED CT 2943907245 Histories Procedure history: None (756052277). Social History Social & Psychosocial Habits Alcohol 12/27/2024 Risk Assessment: Denies Alcohol Use Substance Abuse 12/27/2024 Risk Assessment: Denies Substance Abuse Tobacco 12/31/2024 Tobacco Use: Former smoker, quit more . Physical Examination Airway: Mallampati classification: II (soft palate, fauces, uvula visible). Respiratory: adequate air exchange. Cardiovascular: Regular rhythm. Plan [place] [employer] Anesthesiologists (ASA) physical status classification: Class III. Anesthetic Preoperative Plan: Anesthesia General, and Patient educated on benefits, alternatives and inherent risk of anesthesia including, but not all inclusive, Allergic reactions, dental damage, nerve damage and cardio-pulmonary complications and wishes to proceed with anesthetic plan..[facility] HospitalComment on above:Result Comment: Electronically Signed By: Parth Sparks Jr, DO\.br\Date and Time Signed: 01/03/25 20:07 [id number] NoteHistory and Physical Basic Information Admit Date/Time:01/03/2025 10:11 History of Present Illness 64-year-old male with past medical history of abdominal aortic aneurysm 6.6 cm, HLD, tobacco abuse quit 6 months ago used to smoke 2 packs a day for 20 years, is postop day #0 status post EVAR. Patient currently in ICU. Patient denies any pain. Blood pressure is elevated with systolics in the 160s.Patient denies any chest pain, nausea vomiting diarrhea, pain at sites or other symptoms at this time. 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 Discussed CODE STATUS with patient would like [...] Ordered: Initial Hospital Care/Day Moderate 55 Minutes 21976 2. Hyperlipidemia (E78.5: Hyperlipidemia, unspecified) Statin Orders: acetaminophen, 650 mg = 2 tab(s), Tab, Oral, q6hr PRN Pain, Routine, Start date 01/03/25 15:38:00 EDT, 01/03/25 15:38:00 EDT Al hydroxide/Mg hydroxide/simethicone, 30 mL, Susp-Oral, Oral, q6hr PRN Indigestion, Routine, Startdate 01/03/25 15:38:00 EDT aspirin, 81 mg = [...] None. Medications Inpatient acetaminophen 325 mg Tab, 65 (more content not included)...[facility] HospitalComment on above:Result Comment: Electronically Signed By: Montrell Flaherty DO\.br\Date and Time Signed: 01/03/25 15:41 [id number] Evaluation + Plan note* Assessment & Plan Note - April Thompson MD - 12/23/2024 10:39 AM EDTAssociated Problem(s): Abdominal aortic aneurysm (AAA) EVAR, Procedure risks and alternatives were explained and informed consent was obtained [facility]04-24-2025 Miscellaneous Notes* Assessment & Plan Note - April Thompson MD - 12/23/2024 10:39 AM EDTAssociated Problem(s): Abdominal aortic aneurysm (AAA) EVAR, Procedure risks and alternatives were explained and informed consent was obtained documented in this encounterHighland District Hospital04-24-[facility] History of Present illness Narrative* April Thompson MD - 12/23/2024 10:00 AM EDT Images from the original note were not included. To: Davion G Furlong, DO HPI: Ambrosio Ramírez is a 64 y.o. male with 5.3 cm infrarenal abdominal arctic aneurysm. Discussed the diagnosis different treatment options. Discussed pros and cons of each option. He was cleared by cardiology. He would like to proceed with a EVAR. Because of his insurance he would like to have it doneat [facility].. Review of Systems: Review of Systems Constitutional: [...] Not on file Tobacco Use Smoking status: Former Current packs/day: 0.50 Average packs/day: 0.5 packs/day for 20.0 years (10.0 ttl pk-yrs) Types: Cigarettes Smokeless tobacco: Former Tobacco comments: Reports quit 2 months ago Vaping Use Vaping status: Never Used Substance and Sexual Activity Alcohol use: Not Currently Drug use: Never Sexual activity: Not Currently Other Topics Concern Not on file Social History Narrative Not on file Social Drivers of Health Financial Resource Strain: Low Risk (07/08/2024) Overall Financial Resource Strain (CARDIA) Difficulty of Paying Living Expenses: Not hard at all Food Insecurity: No Food Insecurity (12/23/2024) Hunger Screening Food Insecurity - Worry: Never True Food Insecurity - Inability: Never True Transportation Needs: No Transportation Needs (07/08/2024) PRAPARE - Transportation Lack of Transportation (Medical): No Lack of Transportation (Non-Medical): No Physical Activity: Insufficiently Active (07/08/2024) Exercise Vital Sign Days of Exercise per Week: 2 days Minutes of Exercise per Session: 10 min Stress: No Stress Concern Present (07/08/2024) [employer] - Occupational Stress Questionnaire Feeling of Stress : Not at all Social Connections: Socially Isolated (07/08/2024) Social Connection and Isolation Panel [NHANES] Frequency of Communication with Friends and Family: Once a week Frequency of Social Gatherings with Friends and Family: Twice a week Attends Yazidi Services: Never Active Member of Clubs or [...] the assessment and plan below. Vitals: BP 138/70 (BP Site: Right Arm, BP Postition: Sitting, BP CUFF SIZE: M (9-13 inches)) Pulse 78 Temp 36.3 C (97.4 F) Wt 77.1 kg (170 lb) SpO2 98% BMI 23.71 kg/m Body mass index is 23.71 kg/m . Physical Exam: Physical Exam Constitutional: [...] normal. Judgment: Judgment normal. Recent testing: CTA Stress test and echo Assessment and Plan: Problem List Abdominal aortic aneurysm (AAA) - Primary Current Assessment & Plan EVAR, Procedure risks and alternatives were explained and informed consent was obtained Ambrosio was seen today for follow up after stress test and echo completed 12/10 [place]. Diagnoses and all orders for this visit: Abdominal aortic aneurysm (AAA) without rupture, unspecified part April Thompson MD, NOMAN, RPVI, FSVS, FACS [facility] [employer] [facility] This note was created with the assistance of a speech recognition program. While intending to generate a timely document that accurately reflects the content of the visit, no guarantee can be provided that every grammatical or spelling mistake has been or will be identified or corrected. Thank you for your understanding. documented in this encounterHighland [facility] Hospital04-03-2025 Evaluation + Plan note* Assessment & Plan Note - April Thompson MD - 12/02/2024 11:07 AM EDT Associated Problem(s): Abdominal aortic aneurysm (AAA) Discussed cardiac risk stratification. Discussed open and endovascular options. Discussed risk benefits and alternatives of each. He would like to make decisions about endovascular versus open after his stress test and echo. [facility]04-03-2025 Miscellaneous Notes* Assessment & Plan Note - April Thompson MD - 12/02/2024 11:07 AM EDTAssociated Problem(s): Abdominal aortic aneurysm (AAA) Discussed cardiac risk stratification. Discussed open and endovascular options. Discussed risk benefits and alternatives of each. He would like to make decisions about endovascular versus open after his stress test and echo. documented in this encounterHighland District Hospital04-03-2025 History of Present illness Narrative* April Thompson MD - 12/02/2024 10:40 AM EDT Images from the original note were not included. To: Davion Odom, DO HPI: Ambrosio Ramírez is a 64 y.o. [...] min Stress: No Stress Concern Present (07/08/2024) [employer] [place] [employer] - Occupational Stress Questionnaire Feeling of Stress : Not at all Social Connections: Socially Isolated (07/08/2024) Social Connection and Isolation Panel [NHANES] Frequency of Communication with Friends and Family: Once a week Frequency of Social Gatherings with Friends and Family: Twice a week Attends Yazidi Services: Never Active Member of Clubs or [...] open after his stress test and echo. Ambrosio was seen today for 1 week f/u cta. Diagnoses and all orders for this visit: Abdominal aortic aneurysm (AAA) without rupture, unspecified part April Thompson MD, NOMAN, RPVI, FSVS, FACS [facility] [facility] This note was created with the assistance of a speech recognition program. While intending to generate a timely document that accurately reflects the content of the visit, no guarantee can be provided that every grammatical or spelling mistake has been or will be identified or corrected. Thank you for your understanding. documented in this encounterHarrison Community HospitalEvolven Software [id number] [facility] Note Reason for cardiology [...] including moderate stenosis o (more content not included)...[facility]03-21[facility] History of Present illness Narrative* ALLEN Paige - 11/19/2024 12:[address] Odom called me while still in office and asked that I call pt and notify him of abnormal result that was called to Dr. Odom from [facility] regarding pt abdominal US with 6.7cm aortic aneurysm. Ptcalled and notified and asked that vascular surgeon referral be placed for [place]. Pt given numberto call and schedule appt Friday for soonest available provider for intervention for this. No result in system yet from [facility]. Will ask that staff scan those results in for vascular to review. ALLEN Paige 11/19/24 1224 documented in this encounterHighland District Hospital03-21-2025 Miscellaneous Notes* Telephone Encounter - BHUPINDER Graves - 11/19/2024 12:04 PM EDT Contract: Dejuan Palma calling from [facility] radiology department regarding ultrasound result for the aortic aneurysm results. Connected Dr. Odom with [facility]. documented in this encounterHighland District Hospital03-21-2025 Telephone encounter Note* Telephone Encounter - BHUPINDER Graves - 11/19/2024 12:04 PM EDT Contract: Dejuan Minerva calling from [facility] radiology department regarding ultrasound result for the aortic aneurysm results. Connected Dr. Odom with [facility]. [facility]03-17-2025 History of Present illness Narrative* Davion Odom DO - 11/15/2024 8:30 AM EDT Subjective Patient ID: Ambrosio Ramírez is a 64 y.o. male. Harvey [...] normal. Assessment/Plan Ambrosio was seen today for discussion about anurysm in bladder. Diagnoses and all orders for this visit: Abdominal aortic aneurysm (AAA) without rupture, unspecified part ([facility]) - Ultrasound retroperitoneal limited; Future Check an ultrasound of his AAA to monitor progression. May need further evaluation and management. Risk factors discussed to slow the progression such as smoking cessation in controlling cholesterol.His blood pressure is under good control. Cigarette smoker Discussed several smoking cessation techniques. He tried Zyban and Chantix in the past and did not seem to help him. He does not want to try them again. We discussed nicotine replacement therapies. Mixed hyperlipidemia Continue rosuvastatin documented in this encounterHighland District Hospital11-08-2024 Miscellaneous Notes* Telephone Encounter - Amparo Patel CMA - 07/09/2024 1:03 PM EST ----- Message from Dr. Davion Odom DO sent at 07/09/2024 12:35 PM EST ----- His lipids were all at goal. His HDL was a little low at 35. Exercise can help raise that. His CMP was normal. Continue rosuvastatin. Recheck in 1 year * Telephone Encounter - Stella Ramires - 07/09/2024 1:03 PM EST Patient notified documented in this encounterHighland District Hospital11-08-2024 Telephone encounter Note* Telephone Encounter - Amparo Patel CMA - 07/09/2024 1:03 PM EST ----- Message from Dr. Davion Odom DO sent at 07/09/2024 12:35 PM EST ----- His lipids were all at goal. His HDL was a little low at 35. Exercise can help raise that. His CMP was normal. Continue rosuvastatin. Recheck in 1 year [facility]11-08-2024 Telephone encounter Note* Telephone Encounter - Stella Ramires - 07/09/2024 1:03 PM EST Patient notified [employer] [id number] History of Present illness Narrative* Davion Odom DO - 07/08/2024 10:30 AM EST Subjective Patient ID: Ambrosio Ramírez is a 63 y.o. male. Harvey presents today for a CV recheck. He is not sure he has not wellness benefit so we will make it a wellness today. He is taking his medications. He does not have any side effects. He has ringing in ears. He doesn't want to take OTC supplement TID. He wonders if there is anythingelse he can try. He does not have [...] canal and external ear normal. Mouth/Throat: Lips: [place]. Mouth: Mucous membranes are moist. Eyes: General: [...] and memory normal. Judgment: Judgment normal. Assessment/Plan Ambrosio was seen today for follow-up. Diagnoses and [...] mouth in the morning. documented in this [facility]11-07-2024 Miscellaneous Notes* Medical Student - Dave Willard - 07/08/2024 10:30 AM EST Disclaimer: This note is intended for educational [...] the legal medical record. documented in this encounterHighland District Hospital11-07-2024 Progress note* Medical Student - Davenabor Willard - 07/08/2024 10:30 AM EST Disclaimer: This note is intended for educational [...] a part of the legal medical record. [facility]08-26-2024 Miscellaneous Notes* Telephone Encounter - Stella Ramires - 04/26/2024 3:11 PM EDT ----- Message from Dr. Davion Odom DO sent at 04/26/2024 12:58 PM EDT ----- Regarding: Wellness Please set * Telephone Encounter - Stella Ramires - 04/26/2024 3:11 PM EDT Patient does not have insurance right now, he took early care home from [facility] and is looking for new insurance documented in this encounterHighland District Hospital08-26-2024 Telephone encounter Note* Telephone Encounter - Stella Ramires - 04/26/2024 3:11 PM EDT ----- Message from Dr. Davion Odom DO sent at 04/26/2024 12:58 PM EDT ----- Regarding: Wellness Please set [facility] [employer] [id number] Telephone encounter Note* Telephone Encounter - Stellalindsay Ramires - 04/26/2024 3:11 PM EDT Patient does not have insurance right now, he took early care home from [employer] and is looking for new insurance [facility]12-22-2023 History of Present illness Narrative* Vesta Dawson Sandra, [employer]NAGER [employer]Y - 08/22/2023 9:30 AM EST Subjective Patient ID: Ambrosio Ramírez is a 62 y.o. male. His [...] Thought content normal. Judgment: Judgment normal. Assessment/Plan Ambrosio was seen today for hyperlipidemia. Diagnoses and [...] CHIP Grajeda 08/22/23 1059 documented in this encounterHighland District Hospital10-13-2023 Hospital Discharge instructions Patient Education 06/13/2023 10:43:45 Benign Prostatic Hyperplasia Benign Prostatic Hyperplasia Benign prostatic hyperplasia (BPH) is an enlarged prostate gland that is caused by the normal agingprocess. The prostate may get bigger as a man gets older. The condition is not caused by cancer. The prostate is a walnut-sized gland that is involved in the production of semen. It is located in front of the rectum and below the bladder. The bladder stores urine. The urethra carries stored urine ou t of the body. An enlarged prostate can press on the urethra. This can make it harder to pass urine. The buildup of urine in the bladder can cause infection. Back pressure and infection may progress to bladder damage and kidney (renal) failure. What are the causes? This condition is part of the normal aging process. However, not all men develop problems from thiscondition. If the prostate enlarges away from the [...] urethra. Follow these instructions at home: Take rlfc-hog-svkgjgy and prescription medicines only as told by [...] provider. Document Revised: 03/06/2022 Document Reviewed: 03/06/2022 [employer] Patient Education 2022 Virtual 3-D Display for Smartphones. Follow Up Care 06/14/2022 11:33:47 With:EUGENIO DEVINE, Mellisa Harrison, URL Address: [facility] [address] [place] [address]- [phone] When: Unknown Comments:2 yrs w/ PSA [facility] Hospital Discharge instructions Patient Education 06/14/2022 11:25:40 Benign Prostatic Hyperplasia Benign Prostatic Hyperplasia Benign prostatic hyperplasia (BPH) is an enlarged prostate gland that is caused by the normal agingprocess and not by cancer. The prostate is [...] urethra. Follow these instructions at home: Take owiw-gcw-rjmnjqx and prescription medicines only as told by [...] 08/18/2006 Document Revised: 07/13/2019 Document Reviewed: 09/22/2017 [employer] Patient Education 2020 [employer] Follow Up Care 10/15/2021 11:33:12 With:Mellisa BECKER MD, KIRK Address: [facility] [address], [place] [address]- [phone] When:Within 1 Year(s) Comments:w/ PSA [facility] evaluation + Plan note Future Appointments Appointment Date:06/13/2023 09:45:00 AM Scheduled Provider:Mellisa BECKER MD Location:[facility] Appointment Type:URO Office Visit Diagnostic Tests Pending * PSA Total 06/14/22 [facility] evaluation + Plan note Future Appointments Appointment Date:08/01/2023 01:00:00 PM Scheduled Provider:Anish MORRISON MD Location:[facility] Appointment Type:GS New 30 Diagnostic Tests Pending * PSA Total 06/13/23 [facility] evaluation + Plan note Future Appointments Appointment Date:01/03/2025 12:00:00 PM Scheduled Provider: Location:[facility] Appointment Type:Surgery FT Appointment Date:01/03/2025 12:00:00 PM Scheduled Provider: Location[facility] Appointment Type:CV Abdominal Aortic Anuerysm ELG (FT) Future Scheduled Tests Radiology* CV Peripheralvascular 01/03/25 [facility] Evaluation + Plan note Future Appointments Appointment Date:02/14/2025 09:15:00 AM Scheduled Provider:April Thompson MD Location:[facility] Appointment Type:Vascular Follow Up (FT) [facility] Evaluation + Plan note Future Appointments Appointment Date:02/14/2025 09:15:00 AM Scheduled Provider:April Thompson MD Location:[facility] Appointment Type:Vascular Follow Up (FT) Appointment Date:06/03/2025 10:45:00 AM Scheduled Provider:Mellisa BECKER MD Location:[facility] Appointment Type:URO Office Visit [facility] Evaluation note* Diagnosis Mixed hyperlipidemia- Primary Tobacco abuse Tobacco use disorder documented in this encounter [facility]* Diagnosis Hyperlipidemia, unspecified documented in this encounter [facility]* Diagnosis Well adult health check- Primary Unspecified general medical examination Mixed hyperlipidemia Cigarette nicotine dependence without complication Elevated PSA Elevated prostate specific antigen (PSA) [facility] Diagnosis Abdominal aortic aneurysm (AAA) without rupture, unspecified part ([facility])- Primary Cigarette smoker Tobacco use disorder Mixed hyperlipidemia documented in this encounter [facility]* Diagnosis Aortic aneurysm without rupture, unspecified portion of aorta- Primary documented in this encounter [facility]* Diagnosis Abdominal aortic aneurysm (AAA) without rupture, unspecified part- Primary Aortic aneurysm without rupture, unspecified portion of aorta Abdominal aortic aneurysm (AAA) without rupture, unspecified part- Primary documented in this encounter [facility]* Diagnosis Abdominal aortic aneurysm (AAA) without rupture, unspecified part- Primary Aortic aneurysm without rupture, unspecified portion of aorta Abdominal aortic aneurysm (AAA) without rupture, unspecified part- Primary Abdominal aortic aneurysm (AAA) without rupture, unspecified part- Primary documented in this encounter [facility]* Diagnosis Abdominal aortic aneurysm (AAA) without rupture, unspecified part- Primary Aortic aneurysm without rupture, unspecified portion of aorta Abdominal aortic aneurysm (AAA) without rupture, unspecified part- Primary Abdominal aortic aneurysm (AAA) without rupture, unspecified part- Primary Abdominal aortic aneurysm (AAA) without rupture, unspecified part- Primary Ex-cigarette smoker Personal history of tobacco use, presenting hazards to health Elevated blood pressure reading Elevated blood pressure reading without diagnosis of hypertension documented in this encounter [facility]* Diagnosis Thrombocytopenia- Primary Thrombocytopenia, unspecified H. pylori infection Helicobacter pylori (H. pylori) S/P AAA repair Other postprocedural status Rash Rash and other nonspecific skin eruption Thrombocytopenia Thrombocytopenia, unspecified Rash Rash and other nonspecific skin eruption S/P AAA repair Other postprocedural status H. pylori infection Helicobacter pylori (H. pylori) [facility] Diagnosis Abdominal aortic aneurysm (AAA) without rupture, unspecified part- Primary Aortic aneurysm without rupture, unspecified portion of aorta Abdominal aortic aneurysm (AAA) without rupture, unspecified part- Primary Abdominal aortic aneurysm (AAA) without rupture, unspecified part- Primary Idiopathic thrombocytopenic purpura (CMS-HCC)- Primary Immune thrombocytopenic purpura H. pylori infection Helicobacter pylori (H. pylori) Abdominal aortic aneurysm (AAA) without rupture, unspecified part [facility] N[facility] No data available for this section [facility] Hospital Discharge instructions No data available for this section General Surgery [place] InstructionsNot on filedocumented in this encounter [facility] [...] available for this section [facility] reason for visit Narrative* Auth/Cert (Routine) Specialty Diagnoses / Procedures Referred By Fei t Referred To Contact Diagnoses Thrombocytopenia Matthew Wilson MD [address] [facility] [address] [place] [address] Phone: tel: fax: [address] [place] [address] Referral ID Status Reason Start Date Expiration Date Visits Re quested Visits Authorized [id number] 1 2houses Summary Purpose Family History No Family History Records FoundNo Family History Records Found No data available for this section No data available for this section No Family History Records FoundNo Family History Records Found No data available for this section No Family History Records Found No data available [...] History Records FoundNo Family History Records Found Advance Directives No Advanced Directives Records Found Date Activated Date Inactivated Comments 01/22/2025 3:47 AM Additional Source Comments (unrecognized sect ion and [...] DATE CREATED AUTHOR AUTHOR'S ORGANIZ ATION 06/10/2022 [facility] DATE CREATED AUTHOR AUTHOR'S ORGANIZ ATION 07/10/2024 [facility] DATE CREATED AUTHOR AUTHOR'S ORGANIZ ATION 11/26/2024 [facility] DATE CREATED AUTHOR AUTHOR'S ORGANIZ ATION 12/25/2024 [facility] DATE CREATED AUTHOR AUTHOR'S ORGANIZ ATION 12/28/2024 [facility] DATE CREATED AUTHOR AUTHOR'S ORGANIZ ATION 01/06/2025 [facility] DATE CREATED AUTHOR AUTHOR'S ORGANIZ ATION 01/07/2025 [facility] DATE CREATED AUTHOR AUTHOR'S ORGANIZ ATION 01/27/2025 [facility] DATE CREATED AUTHOR AUTHOR'S ORGANIZ ATION 02/04/2025 [facility] DATE CREATED AUTHOR AUTHOR'S ORGANIZ ATION 02/10/[address] [facility] DATE CREATED AUTHOR AUTHOR'S ORGANIZ ATION 03/14/2025 [facility] DATE CREATED AUTHOR AUTHOR'S ORGANIZ ATION 04/23/[address] [facility] Patient Care team informatio n (unrecognized section and content) Second Cutter Relationship Specialty Start Date End Date RicardoaurelioDavion [address] [place] [address] PCP - General Family Medicine 07/10/22 Second Cutter Relationship Specialty Start Date End Date Jose De JesuspetraDavion [address], [place] [address] PCP - General Family Medicine 07/10/22 Second Cutter Relationship Specialty Start Date End Date Sachin Davion G, [address] [place] [address] PCP - General Family Medicine 07/10/22 Second Cutter Relationship Specialty Start Date End Date Jose De JesuspetraDavion [address], [place] [address] PCP - General Family Medicine 07/10/22 Second Cutter Relationship Specialty Start Date End Date Jose De JesuspetraDavion [address], [place] [address] PCP - General Family Medicine 07/10/22 Second Cutter Relationship Specialty Start Date End Date Davion Odom JonahDO [address], [place] [address] PCP - General Family Medicine 07/10/22 Second Cutter Relationship Specialty Start Date End Date Davion Odom DO [address], [place] [address] PCP - General Family Medicine 07/10/22 Second Cutter Relationship Specialty Start Date End Date Jose De JesuswadeDavion carey DO [address], [place] [address] PCP - General Family Medicine 07/10/22 Second Cutter Relationship Specialty Start Date End Date Jose De JesuswadeDavion carey DO [address], [place] [address] PCP - General Family Medicine 07/10/22 Second Cutter Relationship Specialty Start Date End Date Jose De JesuswadeDavion carey DO [address], [place] [address] PCP - General Family Medicine 07/10/22 Second Cutter Relationship Specialty Start Date End Date Jose De JesuswadeDavion carey DO [address], [place] [address] PCP - General Family Medicine 07/10/22 Second Cutter Relationship Specialty Start Date End Date Jose De JesuswadeDavion carey DO [address] [place] [address] PCP - General Family Medicine 01/22/25 Second Cutter Relationship Specialty Start Date End Date Jose De JesuspetraDavion DO [address] [place] [address] PCP - General Family Medicine 07/10/22 Second Cutter Relationship Specialty Start Date End Date SachinGucciDavion Jonah [address], [facility] [address] PCP - General Family Medicine 07/10/22 Reason for Visit (unrecogniz ed section and content) Reason Comments Hyperlipidemia Reason Onset Date Comments Med Refill 06/09/2024 Reason Comments Follow-up Reason Comments discussion about anurysm in bladder Reason Onset Date Comments ultra sound result 11/19/2024 Reason Comments 1 week f/u CTA Reason Comments Follow up after stress test and ECHO completed 12/10 in [place] Follow up after stress test and ECHO completed 12/10 in [place]. He wants to discuss surgery options Reason Comments f/u surgery Reason Comments TCM Ordered Prescriptions (unrec ognized section and content) Prescription Sig Dispense Quantity Refills Last Filled Start Date End Date polyethylene glycol (GLYCOLAX) 17 g packet Take 1 packet by mouth daily as needed for Constipation 30 packet 01/27/2025 02/27/20 25 pantoprazole (PROTONIX) 40 MG tablet Take 1 tablet by mouth 2 times daily (before meals) for 14 days 28 tablet 01/27/2025 02/11/20 25 bismuth subsalicylate (PEPTO BISMOL) 262 MG/15ML suspension Take 30 mLs by mouth 4 times daily for 52 doses 01/27/2025 02/10/20 25 predniSONE (DELTASONE) 20 MG tablet Take 1 tablet by mouth daily for 7 doses 7 tablet 01/27/2025 02/04/20 25 rosuvastatin (CRESTOR) 10 MG tablet Take 1 tablet by mouth nightly for 30 doses 30 tablet 01/27/2025 02/27/20 25 tetracycline (ACHROMYCIN;SUMYCI N) 500 MG capsule Take 1 capsule by mouth 4 times daily for 52 doses 52 capsule 01/27/2025 02/10/20 25 metroNIDAZOLE (FLAGYL) 500 MG tablet Take 1 tablet by mouth in the morning, at noon, in the evening, and at bedtime for 52 doses 52 tablet 01/27/2025 02/10/20 25 predniSONE (DELTASONE) 20 MG tablet Take 1 tablet by mouth daily for 7 doses 7 tablet 01/27/2025 01/28/20 25 polyethylene glycol (GLYCOLAX) 17 g packet Take 1 packet by mouth daily as needed for Constipation 30 packet 01/27/2025 01/28/20 25 pantoprazole (PROTONIX) 40 MG tablet Take 1 tablet by mouth 2 times daily (before meals) for 14 days 28 tablet 01/27/2025 01/28/20 25 bismuth subsalicylate (PEPTO BISMOL) 262 MG/15ML suspension Take 30 mLs by mouth 4 times daily for 52 doses 01/27/2025 01/28/20 25 rosuvastatin (CRESTOR) 10 MG tablet Take 1 tablet by mouth nightly for 30 doses 30 tablet 01/27/2025 01/28/20 25 tetracycline (ACHROMYCIN;SUMYCI N) 500 MG capsule Take 1 capsule by mouth 4 times daily for 52 doses 52 capsule 01/27/2025 01/28/20 25 metroNIDAZOLE (FLAGYL) 500 MG tablet Take 1 tablet by mouth in the morning, at noon, in the evening, and at bedtime for 52 doses 52 tablet 01/27/2025 01/28/20 25 Scheduled Active and Recently Administ ered Medications (unrecognized section and content) Medication Order 01/25/2025 01/26/2025 01/27/2025 bismuth subsalicylate (PEPTO BISMOL) 262 MG/15ML suspension 30 mL 30 mL, Oral, 4 TIMES DAILY, 56 doses, First dose on Fri01/26/25 at 1300, Last dose on Fri02/09/25 at 0900 1311 (Given - Provider: Saumya Huizar RN)1655 (Given - Provider: Saumya Huizar RN)2017 (Given - Provider: Olga Lidia Garnett, ROSALIE) 0817 (Given - Provider: Mili Weinberg RN)1300 (Due)1700 (Due)2100 (Due) dexAMETHasone (DECADRON) 40 mg in sodium chloride [...] (Given - Provider: Olga Lidia Garnett, ROSALIE)1200 (Due)1800 (Due) pantoprazole (PROTONIX) tablet 40 mg (CANCELED) [...] at 0700, Do not crush or break. 165 (Given - Provider: Saumya Huizar RN) 0556 (Given - Provider: Olga Lidia Garnett, ROSALIE)1600 (Due) predniSONE (DELTASONE) tablet 20 mg 20 mg, Oral, DAILY, 7 doses, First dose on Fri01/27/25 at 1000, Last dose on Fri02/02/25 at 0900 1033 (Given - Provider: Mili Weinberg, ROSALIE) rosuvastatin (CRESTOR) tablet 10 mg 10 mg, Oral, NIGHTLY, 7 doses, First dose on Fri01/24/25 at 2100, Last dose on Fri01/30/25 at 2100 2044 (Given - Provider: Olga Lidia Garnett, RN) 2017 (Given - Provider: Olga Lidia Garnett, RN) 2099 (Due) sennosides-docusate sodium (SENOKOT-S) 8.6-50 MG tablet 2 tablet (COMPLETED) 2 tablet, Oral, DAILY, 3 doses, First dose on 01/23/25 at 1330, Last dose on Fri01/25/25 at [...] Morgan RN)2044 (Given - Provider: Olga Lidia Garnett RN) 131 (Given - Provider: Saumya Huizar RN)2020 (Given - Provider: Olga Lidia Garnett, ROSALIE) 0818 (Given - Provider: Mili Weinberg, ROSALIE)2099 (Due) tetracycline (ACHROMYCIN;SUMYCIN) capsule 500 mg 500 mg, [...] Shearer V RN)1655 (Given - Provider: Saumya Shearer V RN)2016 (Given - Provider: Olga Lidia Garnett RN) 0817 (Given - Provider: Mili Weinberg RN)1300 (Due)1700 (Due)2100 (Due) PRN Medication Order 01/25/2025 01/26/2025 01/27/2025 0.9 [...] PRN, Starting on 01/22/25 at 0347, Until Discontinued, Pain Mild (1-3), allowed for higher pain score per patient request, Fever, For temp greater than 100.4 F (38 C), Administer if oral route cannot be used. acetaminophen (TYLENOL) tablet 650 mg(Linked Group 1) 650 mg, Oral, EVERY 6 HOURS PRN, Starting on 01/22/25 at 0347, Until Discontinued, Pain Mild (1-3), allowed for higher pain score per patient request, Fever, For temp greater than 100.4 F (38 C), Maximum dose of acetaminophen is 4000 mg from all sources in 24 hours. albuterol (PROVENTIL) (2.5 MG/3ML) 0.083% nebulizer solution 2.5 mg 2.5 mg, Nebulization, EVERY 4 HOURS PRN, Starting on 01/22/25 at 0522, Until Discontinued, Wheezing, Shortness of Breath, Initiate RT Bronchodilator Protocol: Yes - Inpatient Protocol labetalol (NORMODYNE;TRANDATE) injection 10 mg 10 mg, IntraVENous, EVERY 4 HOURS PRN, Starting on 01/22/25 at 0507, Until Discontinued, High Blood Pressure, For SBP >150 mmHg. [...] PRN, Starting on 01/22/25 at 0347, Until Discontinued, Nausea, Vomiting, Administer if oral route cannot be used. ondansetron (ZOFRAN-ODT) disintegrating tablet 4 mg(Linked Group 2) 4 mg, Oral, EVERY 8 HOURS PRN, Starting on 01/22/25 at 0347, Until Discontinued, Nausea, Vomiting polyethylene glycol (GLYCOLAX) packet 17 g 17 g, Oral, DAILY PRN, Starting on 01/22/25 at 0347, Until Discontinued, Constipation, First line therapy for constipation potassium chloride 10 mEq/100 mL IVPB (Peripheral Line)(Linked Group 3) 10 mEq, IntraVENous, PRN, Starting on 01/22/25 at 0347, Until 02/06/25 at 0346, at 100 mL/hr, Per IV Potassium Replacement [...] PRN, Starting on 01/22/25 at 0347, Until 02/06/25 at 0346, at 50 mL/hr, Per IV Potassium Replacement [...] PRN, Starting on 01/22/25 at 0347, Until Discontinued, Line Care, After every IV line use, [...] PRN, Starting on 01/22/25 at 0347, Until Discontinued, Pain Mild (1-3), allowed for higher pain score per patient request, Fever, For temp greater than 100.4 F (38 C), Maximum dose of acetaminophen is 4000 mg from all sources in 24 hours. Or acetaminophen (TYLENOL) suppository 650 mgJump to med 650 mg, Rectal, EVERY 6 HOURS PRN, Starting on 01/22/25 at 0347, Until Discontinued, Pain Mild (1-3), allowed for higher pain score per patient request, Fever, For temp greater than 100.4 F (38 C), Administer if oral route cannot be used. Group 2: ondansetron (ZOFRAN-ODT) disintegrating tablet 4 mgJump to med 4 mg, Oral, EVERY 8 HOURS PRN, Starting on 01/22/25 at 0347, Until Discontinued, Nausea, Vomiting Or ondansetron (ZOFRAN) injection 4 mgJump to med 4 mg, IntraVENous, EVERY 6 HOURS PRN, Starting on 01/22/25 at 0347, Until Discontinued, Nausea, Vomiting, Administer if oral route cannot be used. Group 3: potassium chloride 20 mEq/50 mL IVPB (Central Line)Jump to med 20 mEq, IntraVENous, PRN, Starting on 01/22/25 at 0347, Until 02/06/25 at 0346, at 50 mL/hr, Per IV Potassium Replacement [...] PRN, Starting on 01/22/25 at 0347, Until 02/06/25 at 0346, at 100 mL/hr, Per IV Potassium Replacement [...] in Patients with CrCl less than 30mL/min FOR RECORDS PERTAINING TO PATIENTS WHO ARE [...] BE BASED ON THE PRIMARY CLINICAL RECORDS. [facility] [employer] [facility]. provides no warranty or guarantee of the accuracy or completeness of information in this document.
[2025-05-03 08:29] LABS: Hematocrit 44.9 % (42.0-54.0); Hemoglobin 14.5 g/dL (14.0-18.0); Immature Granulocytes Abs Auto 0.02 10^3/uL (0.00-0.03); Immature Granulocytes Pct Auto 0.3 % (0.0-0.5); Lymphocytes Absolute Auto 1.6 10^3/uL (1.2-3.8); Mean Corpuscular HGB Conc 32.3 g/dL (29.9-35.2); Mean Corpuscular Hemoglobin 26.8 pg (25.9-34.0); Mean Corpuscular Volume 82.8 fL (80.0-94.0); Platelet Count 207 10^3/uL (150-450); Red Blood Count 5.42 10^6/uL (4.70-6.10); White Blood Count 6.4 10^3/uL (4.0-11.0)
== END 2025-05-03 08:08 | disposition home or self-care (01) ==
LOC: LAB 08:08
PROVIDERS: PCP Family Medicine
DX: D69.6 Thrombocytopenia, unspecified (principal); Z98.890 Other specified postprocedural states; Z86.79 Personal history of other diseases of the circulatory system; A04.8 Other specified bacterial intestinal infections; R21 Rash and other nonspecific skin eruption
CPT/HCPCS: 36415; 85025

== ENCOUNTER 2025-06-01 08:26 | Outpatient (OUT) | payer OTHER, SELFPAY ==
--- OUTSIDE RECORDS SUMMARY | 2025-03-28 09:05 | XMS_ITS ---
Author Name Auto Generated Organization [place] Care Team Providers Care Floor Attendant Name Role Phone PRISCILA ODOM G Attending Unavailable FURLONG, PRISCILA G Referring [...] G Primary Care Unavailable FURLONG, PRISCILA G Primary Care Unavailable APRIL RHOADES Consulting Unavailable PAYTON, ZAINULABEDIN Attending Unavailable MATTHEW PERSON Admitting Unavailable KRISTY ALFRED Referring Unavailable Jay, Mohamed F. Attending Unavailable Jay, Mohamed F. Admitting Unavailable Jay, Mohamed F. Referring Unavailable Jay, Mohamed F. Admitting Unavailable Jay, Mohamed F. Referring Unavailable Jay, Mohamed F. Attending Unavailable Jay, Mohamed F. Attending Unavailable Jay, Mohamed F. Admitting Unavailable NONE, XXXX Referring Unavailable Jay, Mohamed F. Referring Unavailable Jay, Mohamed F. Attending Unavailable Jay, Mohamed F. Admitting Unavailable Jay, Mohamed F. Admitting Unavailable Jay, Mohamed F. Referring Unavailable Jay, Mohamed F. Attending Unavailable Jay, Mohamed F. Admitting Unavailable Jay, Mohamed F. Referring Unavailable Jay, Mohamed F. Attending Unavailable Jay, Mohamed F. Admitting Unavailable Jay, Mohamed F. Referring Unavailable Jay, Mohamed F. Attending Unavailable AIMEE CHOE Attending Unavailable PROBLEMS DATE TYPE CONDITION / CODE ATTENDING STATUS [facility] 01/27/2025 Unknown Thrombocytopenia , unspecified / D69.6(ICD-10) [facility] 01/26/2025 Unknown Other specified bacterial intestinal infections / A04.8(ICD-10) [facility], [facility] 01/23/2025 Unknown Other specified postprocedural states / Z98.890(ICD-10) [facility], [facility] 01/23/2025 Unknown Personal history of other diseases of the circulatory system / Z86.79(ICD-10) [facility], [facility] 01/22/2025 Unknown Rash and other nonspecific skin eruption / R21(ICD-10) [facility] Unknown Personal history of nicotine dependence / Z87.891(ICD-10) PRISCILA ODOM [facility] [place] [place] 01/03/2025 Unknown I71.43 / I71.43(ICD-10) April ThompsonBeckie Active [facility] 11/29/2024 Admitting Diagnosis Infrarenal abdominal aortic aneurysm, without rupture / I71.43(ICD-10) AIMEE CHOE Active [facility] 11/29/2024 Admitting Diagnosis Encounter for other preprocedural examination / Z01.818(ICD-10) [facility] 11/25/2024 Unknown Aortic aneurysm of unspecified site, without rupture / I71.9(ICD-10) APRIL THOMPSON [facility] 08/09/2022 Unknown Abdominal aortic aneurysm, without rupture, unspecified / I71.40(ICD-10) [place] [facility] 11/15/2024 Unknown Nicotine depende nce, cigarettes, uncomplicated / F17.210(ICD-10) [place] [facility] 11/15/2024 Unknown discussion about anurysm in bladder / UNK(Unknown) [place] [facility] 08/09/2022 Unknown Mixed hyperlipid emia / E78.2(ICD-10) [facility] 07/08/2024 Unknown Encounter for general adult medical examination without abnormal findings / Z00.00(ICD-10) [place] [facility] 07/08/2024 Unknown Follow-up / FREETEXT(AOF) [place] [facility] PROCEDURES No Procedure Records Found RESULTS HEART AND VASCULAR OFFICE/CLINIC NOTE Observed: 03/28/2025 9:05 AM Status: F Source: [facility] Heart and Vascular Office/ inic Note Chief Complaint Inpatient follow up. History of Present Illness 64-year-old gentleman status post EVAR for infrarenal abdominal arctic aneurysm. CTA showed successful exclusion of the aneurysm with no issues. He is doing well. He mentioned that he had thrombocytopenia induced with Helicobacter infection. He has been following up with hematology. He recovered from that and he is feeling good. Review of Systems PHQ Score Initial Depression Screen Score: 0 SCORE Constitutional: no fever, no chills, no sweats, no weakness Skin: no Jaundice, no rash, no lesions, nopetechiae ENMT: no ear pain, no sore throat, no congestion, no hoarseness Respiratory: no shortness of breath, no cough, no orthopnea, no wheezing Cardiovascular: no chest pain, no palpitations, no edema Gastrointestinal: no nausea, no vomiting, no diarrhea, no GI bleeding Genitourinary: no dysuria, no hematuria, no discharge, no pain Musculoskeletal: no back pain, no trauma Neurologic: no headache, no dizziness, no numbness, no weakness Psychiatric: no sleeping problems, no irritability, no mood swings/depression. Heme/Lymph: no bleeding tendency, no bruising tendency, no petechiae, no swollen nodes Allergy/Immunologic: no seasonal allergies, no food allergies, no recurrent infections, no impaired immunity Additional ROS info: Except as noted in the above Review of Systems and in the History of Present Illness all other systems have been reviewed and are negative or noncontributory. Physical Exam Vitals & Measurements HR: 77(Peripheral) RR: 18 BP: 129/75 SpO2: 99% HT: 71 in HT: 180 cm WT: 80 kg WT: 176.37 lb BMI: 24.69 General: alert, no acute distress Skin: warm, dry Head: no trauma, normocephalic Neck: Trachea midline, no adenopathy, no tenderness Eye: normal conjunctiva, sclera clear Cardiovascular: regular rate and rhythm, normal peripheral perfusion Respiratory: Lungs CTA, respirations non labored Chest wall: no deformity. Gastrointestinal: soft, non distended, no tenderness, no guarding. Back: No tenderness, Normal ROM, Normal alignment. Extremities: no edema,no deformity, no trauma Neurological: oriented x 4, LOC appropriate for age, motor strength equal & normal bilaterally, sensation equal & normal bilaterally, speech normal Psychiatric: cooperative, affect appropriate for age, normal judgement, normal psychiatric thoughts. Assessment/Plan 1. AAA (abdominal aortic aneurysm) (I71.40: Abdominal aortic aneurysm, without rupture, unspecified) Aortic duplex ultrasound in 1 year. Follow-up No qualifying data available Problem List/Past Medical History Ongoing AAA (abdominal aortic aneurysm) BMI 25.0-25.9,adult BPH with obstruction/lower urinary tract symptoms Depression Elevated PSA Hyperlipidemia Screening for malignant neoplasm of colon Smoker Historical No qualifying data Procedure/Surgical History Aortic endovascular stent graft (01/03/2025), None. Medications predniSONE 2.5 mg oral tablet rosuvastatin 10 mg Tab, 10 mg= 1 tab(s), Oral, Daily Allergies No Known Allergies Social History Alcohol - Denies Alcohol Use, 08/01/2023 Never., 12/31/2024 Substance Abuse - Denies Substance Abuse, 08/01/2023 Never., 12/31/2024 Tobacco Former smoker, quit more than 30 days ago Tobacco Use:., 03/28/2025 Family History Arthritis: Father. Breast cancer: Mother. Cancer: Father. High cholesterol: Mother. Hypertension: Mother. Stroke: Father. Immunizations Vaccine Date Status Comments influenza virus vaccine, inactivated - Not Given Patient Refuses SARS-CoV-2 mRNA (toriccinameran 5y-11y) vac - Not Given Patient Refuses Result Comment: Electronical ly Signed By: Jay DEVINE, April Barboza\.br\Date and Time Signed: 03/28/25 09:30 EDT CTA ABD AORTO-BILAT/ ILIOFEMORAL RUNOFF Observed: 02/08/2025 2:55 PM Status: F Source: [facility] Exam Date/Time: 02/08/2025 15:29 EDT Reason for Exam: I71.40;Other (please specify) Report IMPRESSION: APPROXIMATELY 5.3 CM FUSIFORM INFRARENAL ABDOMINAL AORTIC ANEURYSM WITH AORTOBIILIAC STENTS IN EXPECTED POSITIONS. NO FLOW-LIMITING LOWER EXTREMITY ARTERIAL STENOSIS THROUGH EITHER POPLITEAL ARTERY. MODERATE PROXIMAL INFRAPOPLITEAL DISEASE WITH AREAS OF UPTAKE APPROXIMATELY 50% NARROWING. OTHERWISE, PATENT THREE-VESSEL RUNOFF BILATERALLY. EXAM: CTA Abd Aorto-bilat/ iliofemoral runoff DATE: 02/08/2025 2:55 PM CLINICAL HISTORY: I71.40. COMPARISON: Interoperative fluoroscopy 01/03/2025. TECHNIQUE: Spiral enhanced images were obtained of the abdominal aorta through both feet after the infusion of approximately 150 mL of Isovue 370 contrast with CTA/runoff protocol. Routine and volume rendered images were performed on a three-dimensional workstation. All CT scans at this facility use dose modulation, iterative reconstruction, and/or weight based dosing when appropriate to reduce radiation dose to as low as reasonably achievable. FINDINGS: Fusiform aneurysmal dilatation of the infrarenal abdominal aorta measures approximately 5.3 x 5.0 cm in maximum caliber. Aortobiiliac stents are present in expected positions. No evidence for endoleak without noncontrast or delayed imaging performed for this study, which limits evaluation. There is no retroperitoneal hemorrhage, organized hematoma, free fluid, or other acute findings identified. Mild predominantly calcific plaquing of the lower extremity arterial systems without a flow-limiting stenosis through both popliteal arteries. Moderate disease of the proximal infrapopliteal runoff bilaterally without to approximately 50% stenoses. Otherwise patent 3 vessel runoff. Report A few very small enhancing cysts are present within an otherwise unremarkable-appearing liver. The nearly decompressed gallbladder, spleen, pancreas, adrenal glands, kidneys, unopacified bowel loops, appendix, urinary bladder and visualized musculoskeletal structures are unremarkable. Mild probable atelectasis or scarring of the visualized left lung base. Ordering Provider: April Thompson FINAL REPORT Dictated: 02/08/2025 4:12 pm Roger Calle MD Signed (Electronic Signature): 02/08/2025 4:12 pm Signed by: Roger Calle MD Transcribed by: MARGIE Technologist: AMARI CBC WITH DIFF Collected: 01/27/2025 6:04 AM Status: F Source: [facility] TYPE CODE TESTS RESULT OUT OF RANGE REFERENCE UNITS LAB WBC(LOINC) WBC Count 7.5 3.5-11.3 k/uL LAB RBC(LOINC) RBC Count 3.77 Low 4.21-5.77 m/uL LAB HGB(LOINC) Hemoglobin 10.9 Low 13.0-17.0 g/dL LAB HCT(LOINC) Hematocrit 33.2 Low 40.7-50.3 % LAB MCV(LOINC) MCV 88.1 82.6-102.9 fL LAB MCH(LOINC) MCH 28.9 25.2-33.5 pg LAB MCHC(LOINC) MCHC 32.8 28.4-34.8 g/dL LAB RDW(LOINC) RDW 13.3 11.8-14.4 % LAB PLT(LOINC) Platelet Count See Reflexed IPF Result 138-453 k/uL LAB PLTFL(LOINC) Platelet, Fluoresc. 29 Low 138-453 k/uL LAB IPLTF(LOINC) PLT, Immature Fract. 14.5 High 1.1-10.3 % LAB NRBCS(LOINC) NRBC Automated 0.0 0.0 per 100 WBC LAB SEG(LOINC) Neutrophil (Seg) 61 36-65 % LAB LYM(LOINC) Lymphocyte 25 24-43 % LAB MON(LOINC) Monocyte 11 3-12 % LAB EO(LOINC) Eosinophil 1 1-4 % LAB BASO(LOINC) Basophil 0 0-2 % LAB IGRAN(LOINC) Immature Granulocyte 1 High 0 % LAB ASEG(LOINC) Abs.Neutrophil (Seg) 4.59 1.50-8.10 k/uL LAB ALYM(LOINC) Abs. Lymph 1.83 1.10-3.70 k/uL LAB AMONO(LOINC) Abs. Monocyte 0.85 0.10-1.20 k/u L LAB AEO(LOINC) Abs. Eosinophil 0.08 0.00-0.44 k/u L LAB ABASO(LOINC) Abs. Basophil <0.03 0.00-0.20 k/u L LAB AIGRAN(LOINC) Abs.Imm.Granulo cyte 0.10 0.00-0.30 k/uL Performed By: #### CDP, BMPX #### [facility] [place] [address] Cupola Patcher Helper: Mo Feliciano MD BASIC METAB W/RFX MG Collected: 01/27/2025 6:04 AM S tatus: F Source: [facility] TYPE CODE TESTS RESULT OUT OF RANGE REFERENCE UNITS LAB NA(LOINC) NA (Sodium) 131 Low 136-145 mmol/L LAB K(LOINC) K (Potassium) 4.3 3.7-5.3 mmol/L Result Comment: Specimen hem olysis has exceeded the interference as defined by Aidan. Value may be falsely increased. Suggest recollection if clinically indicated. LAB CL(LOINC) Chloride 102 98-107 mmol/L LAB HCO(LOINC) CO2 21 20-31 mmol/L LAB GAP(LOINC) Anion Gap 8 Low 9-16 mmol/L LAB GLU(LOINC) Glucose 81 74-99 mg/dL LAB BUN(LOINC) BUN (Urea N) 15 8-23 mg/dL LAB CRE(LOINC) Creatinine 0.7 0.7-1.2 mg/dL LAB EGFR(LOINC) eGFR >90 >60 mL/min/1. 73m2 Result Comment: These results are not intended for [...] following therapy that affects renal tubular secretion. LAB CA(LOINC) Calcium 8.2 Low 8.6-10.4 mg/dL Performed By: #### CDP, BMPX #### [employer] [address] [place] [address] [phone] Cup[employer] Pat[employer] Helper: Mo Feliciano MD H. PYLORI ANTIGEN Observed: 01/26/2025 9:17 AM Status: F Source: [facility] Specimen Description .FECES Direct Exam POSITIVE Report Status FINAL 01/26/2025 Performed By: #### FHPY #### [employer] [address] [place] [address] [phone] [employer] Pat[employer] Helper: Mo Feliciano MD BASIC METAB W/RFX MG Collected: 01/26/2025 3:07 AM S tatus: F Source: [facility] TYPE CODE TESTS RESULT OUT OF RANGE REFERENCE UNITS LAB NA(LOINC) NA (Sodium) 132 Low 136-145 mmol/L LAB K(LOINC) K (Potassium) 4.0 3.7-5.3 mmol/L LAB CL(LOINC) Chloride 103 98-107 mmol/L LAB HCO(LOINC) CO2 21 20-31 mmol/L LAB GAP(LOINC) Anion Gap 8 Low 9-16 mmol/L LAB GLU(LOINC) Glucose 95 74-99 mg/dL LAB BUN(LOINC) BUN (Urea N) 17 8-23 mg/dL LAB CRE(LOINC) Creatinine 0.6 Low 0.7-1.2 mg/dL LAB EGFR(LOINC) eGFR >90 >60 mL/min/1. 73m2 Result Comment: These results are not intended for [...] following therapy that affects renal tubular secretion. LAB CA(LOINC) Calcium 8.3 Low 8.6-10.4 mg/dL Performed By: #### CDP, BMPX #### [employer] [facility] [place] [address] Cupola Patcher Helper: Mo Feliciano MD CBC WITH DIFF Collected: 01/26/2025 3:07 AM Status: F Source: [facility] TYPE CODE TESTS RESULT OUT OF RANGE REFERENCE UNITS LAB WBC(LOINC) WBC Count 9.9 3.5-11.3 k/uL LAB RBC(LOINC) RBC Count 3.42 Low 4.21-5.77 m/uL LAB HGB(LOINC) Hemoglobin 9.8 Low 13.0-17.0 g/dL LAB HCT(LOINC) Hematocrit 30.3 Low 40.7-50.3 % LAB MCV(LOINC) MCV 88.6 82.6-102.9 fL LAB MCH(LOINC) MCH 28.7 25.2-33.5 pg LAB MCHC(LOINC) MCHC 32.3 28.4-34.8 g/dL LAB RDW(LOINC) RDW 13.0 11.8-14.4 % LAB PLT(LOINC) Platelet Count See Reflexed IPF Result 138-453 k/uL LAB PLTFL(LOINC) Platelet, Fluoresc. 17 Low alert 138-453 k/uL LAB IPLTF(LOINC) PLT, Immature Fract. 26.4 High 1.1-10.3 % LAB NRBCS(LOINC) NRBC Automated 0.3 High 0.0 per 100 WBC LAB SEG(LOINC) Neutrophil (Seg) 70 High 36-65 % LAB LYM(LOINC) Lymphocyte 20 Low 24-43 % LAB MON(LOINC) Monocyte 9 3-12 % LAB EO(LOINC) Eosinophil 0 Low 1-4 % LAB BASO(LOINC) Basophil 0 0-2 % LAB IGRAN(LOINC) Immature Granulocyte 1 High 0 % LAB ASEG(LOINC) Abs.Neutrophil (Seg) 6.92 1.50-8.10 k/uL LAB ALYM(LOINC) Abs. Lymph 1.98 1.10-3.70 k/uL LAB AMONO(LOINC) Abs. Monocyte 0.84 0.10-1.20 k/u L LAB AEO(LOINC) Abs. Eosinophil <0.03 0.00-0.44 k/u L LAB ABASO(LOINC) Abs. Basophil <0.03 0.00-0.20 k/u L LAB AIGRAN(LOINC) Abs.Imm.Granulo cyte 0.09 0.00-0.30 k/uL Performed By: #### CDP, BMPX #### [facility] [employer] [facility] [place] [address] Cupola Patcher Helper: Mo Feliciano MD BASIC METAB W/RFX MG Collected: 01/25/2025 6:32 AM S tatus: F Source: [facility] TYPE CODE TESTS RESULT OUT OF RANGE REFERENCE UNITS LAB NA(LOINC) NA (Sodium) 134 Low 136-145 mmol/L LAB K(LOINC) K (Potassium) 4.0 3.7-5.3 mmol/L LAB CL(LOINC) Chloride 101 98-107 mmol/L LAB HCO(LOINC) CO2 22 20-31 mmol/L LAB GAP(LOINC) Anion Gap 11 9-16 mmol/L LAB GLU(LOINC) Glucose 87 74-99 mg/dL LAB BUN(LOINC) BUN (Urea N) 16 8-23 mg/dL LAB CRE(LOINC) Creatinine 0.7 0.7-1.2 mg/dL LAB EGFR(LOINC) eGFR >90 >60 mL/min/1. 73m2 Result Comment: These results are not intended for [...] following therapy that affects renal tubular secretion. LAB CA(LOINC) Calcium 8.7 8.6-10.4 mg/dL Performed By: #### CDP, BMPX #### [facility] [employer] [facility] [place], [place] [phone] [employer] Pat[employer] Helper: Mo Feliciano MD CBC WITH DIFF Collected: 01/25/2025 6:32 AM Status: F Source: [facility] TYPE CODE TESTS RESULT OUT OF RANGE REFERENCE UNITS LAB WBC(LOINC) WBC Count 9.5 3.5-11.3 k/uL LAB RBC(LOINC) RBC Count 3.63 Low 4.21-5.77 m/uL LAB HGB(LOINC) Hemoglobin 10.4 Low 13.0-17.0 g/dL LAB HCT(LOINC) Hematocrit 32.2 Low 40.7-50.3 % LAB MCV(LOINC) MCV 88.7 82.6-102.9 fL LAB MCH(LOINC) MCH 28.7 25.2-33.5 pg LAB MCHC(LOINC) MCHC 32.3 28.4-34.8 g/dL LAB RDW(LOINC) RDW 13.1 11.8-14.4 % LAB PLT(LOINC) Platelet Count See Reflexed IPF Result 138-453 k/uL LAB PLTFL(LOINC) Platelet, Fluoresc. 6 Low alert 138-453 k/uL LAB IPLTF(LOINC) PLT, Immature Fract. 22.8 High 1.1-10.3 % LAB NRBCS(LOINC) NRBC Automated 0.0 0.0 per 100 WBC LAB SEG(LOINC) Neutrophil (Seg) 62 36-65 % LAB LYM(LOINC) Lymphocyte 28 24-43 % LAB MON(LOINC) Monocyte 10 3-12 % LAB EO(LOINC) Eosinophil 0 Low 1-4 % LAB BASO(LOINC) Basophil 0 0-2 % LAB IGRAN(LOINC) Immature Granulocyte 1 High 0 % LAB ASEG(LOINC) Abs.Neutrophil (Seg) 5.85 1.50-8.10 k/uL LAB ALYM(LOINC) Abs. Lymph 2.62 1.10-3.70 k/uL LAB AMONO(LOINC) Abs. Monocyte 0.91 0.10-1.20 k/u L LAB AEO(LOINC) Abs. Eosinophil <0.03 0.00-0.44 k/u L LAB ABASO(LOINC) Abs. Basophil 0.03 0.00-0.20 k/u L LAB AIGRAN(LOINC) Abs.Imm.Granulo cyte 0.05 0.00-0.30 k/uL Performed By: #### CDP, BMPX #### [facility] [employer] [facility] [place], [place] [phone] [employer] Helper: Mo Feliciano MD CBC WITH DIFF Collected: 01/24/2025 3:16 PM Status: F Source: [facility] TYPE CODE TESTS RESULT OUT OF RANGE REFERENCE UNITS LAB WBC(LOINC) WBC Count 6.3 3.5-11.3 k/uL LAB RBC(LOINC) RBC Count 3.72 Low 4.21-5.77 m/uL LAB HGB(LOINC) Hemoglobin 10.7 Low 13.0-17.0 g/dL LAB HCT(LOINC) Hematocrit 33.1 Low 40.7-50.3 % LAB MCV(LOINC) MCV 89.0 82.6-102.9 fL LAB MCH(LOINC) MCH 28.8 25.2-33.5 pg LAB MCHC(LOINC) MCHC 32.3 28.4-34.8 g/dL LAB RDW(LOINC) RDW 12.9 11.8-14.4 % LAB PLT(LOINC) Platelet Count See Reflexed IPF Result 138-453 k/uL LAB PLTFL(LOINC) Platelet, Fluoresc. 8 Low alert 138-453 k/uL LAB IPLTF(LOINC) PLT, Immature Fract. 30.2 High 1.1-10.3 % LAB NRBCS(LOINC) NRBC Automated 0.0 0.0 per 100 WBC LAB SEG(LOINC) Neutrophil (Seg) 85 High 36-65 % LAB LYM(LOINC) Lymphocyte 12 Low 24-43 % LAB MON(LOINC) Monocyte 2 Low 3-12 % LAB EO(LOINC) Eosinophil 0 Low 1-4 % LAB BASO(LOINC) Basophil 0 0-2 % LAB IGRAN(LOINC) Immature Granulocyte 1 High 0 % LAB ASEG(LOINC) Abs.Neutrophil (Seg) 5.39 1.50-8.10 k/uL LAB ALYM(LOINC) Abs. Lymph 0.78 Low 1.10-3.70 k/uL LAB AMONO(LOINC) Abs. Monocyte 0.11 0.10-1.20 k/u L LAB AEO(LOINC) Abs. Eosinophil <0.03 0.00-0.44 k/u L LAB ABASO(LOINC) Abs. Basophil <0.03 0.00-0.20 k/u L LAB AIGRAN(LOINC) Abs.Imm.Granulo cyte 0.03 0.00-0.30 k/uL Performed By: #### CDP #### [employer] [facility] [place] [address] Cup[employer] Patcher Helper: Mo Feliciano MD CBC WITH DIFF Collected: 01/24/2025 3:32 AM Status: F Source: [facility] TYPE CODE TESTS RESULT OUT OF RANGE REFERENCE UNITS LAB WBC(LOINC) WBC Count 8.6 3.5-11.3 k/uL LAB RBC(LOINC) RBC Count 3.83 Low 4.21-5.77 m/uL LAB HGB(LOINC) Hemoglobin 10.8 Low 13.0-17.0 g/dL LAB HCT(LOINC) Hematocrit 34.8 Low 40.7-50.3 % LAB MCV(LOINC) MCV 90.9 82.6-102.9 fL LAB MCH(LOINC) MCH 28.2 25.2-33.5 pg LAB MCHC(LOINC) MCHC 31.0 28.4-34.8 g/dL LAB RDW(LOINC) RDW 13.0 11.8-14.4 % LAB PLT(LOINC) Platelet Count See Reflexed IPF Result 138-453 k/uL LAB PLTFL(LOINC) Platelet, Fluoresc. 6 Low alert 138-453 k/uL LAB IPLTF(LOINC) PLT, Immature Fract. 25.9 High 1.1-10.3 % LAB NRBCS(LOINC) NRBC Automated 0.0 0.0 per 100 WBC LAB SEG(LOINC) Neutrophil (Seg) 70 High 36-65 % LAB LYM(LOINC) Lymphocyte 21 Low 24-43 % LAB MON(LOINC) Monocyte 8 3-12 % LAB EO(LOINC) Eosinophil 0 Low 1-4 % LAB BASO(LOINC) Basophil 0 0-2 % LAB IGRAN(LOINC) Immature Granulocyte 1 High 0 % LAB ASEG(LOINC) Abs.Neutrophil (Seg) 6.03 1.50-8.10 k/uL LAB ALYM(LOINC) Abs. Lymph 1.79 1.10-3.70 k/uL LAB AMONO(LOINC) Abs. Monocyte 0.72 0.10-1.20 k/u L LAB AEO(LOINC) Abs. Eosinophil <0.03 0.00-0.44 k/u L LAB ABASO(LOINC) Abs. Basophil 0.03 0.00-0.20 k/u L LAB AIGRAN(LOINC) Abs.Imm.Granulo cyte 0.05 0.00-0.30 k/uL Performed By: #### LIVP, BMP X, CDP #### [employer] [facility] [place] [address] Cupola Patcher Helper: Mo Feliciano MD BASIC METAB W/RFX MG Collected: 01/24/2025 3:32 AM S tatus: F Source: [facility] TYPE CODE TESTS RESULT OUT OF RANGE REFERENCE UNITS LAB NA(LOINC) NA (Sodium) 133 Low 136-145 mmol/L LAB K(LOINC) K (Potassium) 4.2 3.7-5.3 mmol/L Result Comment: Specimen hem olysis has exceeded the interference as defined by Aidan. Value may be falsely increased. Suggest recollection if clinically indicated. LAB CL(LOINC) Chloride 104 98-107 mmol/L LAB HCO(LOINC) CO2 20 20-31 mmol/L LAB GAP(LOINC) Anion Gap 9 9-16 mmol/L LAB GLU(LOINC) Glucose 97 74-99 mg/dL LAB BUN(LOINC) BUN (Urea N) 21 8-23 mg/dL LAB CRE(LOINC) Creatinine 0.5 Low 0.7-1.2 mg/dL LAB EGFR(LOINC) eGFR >90 >60 mL/min/1. 73m2 Result Comment: These results are not intended for [...] following therapy that affects renal tubular secretion. LAB CA(LOINC) Calcium 8.6 8.6-10.4 mg/dL Performed By: #### LIVP, BMP X, CDP #### [employer] [address] [place] [address] [phone] [employer] Pat[employer] Helper: Mo Feliciano MD LIVER PROFILE Collected: 01/24/2025 3:32 AM Status: F Source: [facility] TYPE CODE TESTS RESULT OUT OF RANGE REFERENCE UNITS LAB ALB(LOINC) Albumin 3.1 Low 3.5-5.2 g/dL LAB ALP(LOINC) Alkaline Phos 61 40-129 U/L LAB ALT(LOINC) ALT 28 10-50 U/L LAB AST(LOINC) AST 24 10-50 U/L LAB TBIL(LOINC) Bilirubin, Total 0.6 0.0-1.2 mg/dL LAB DBILI(LOINC) Bilirubin, Direct 0.1 0.0-0.2 mg/dL LAB IBIL(LOINC) Bilirubin, Indirect 0.5 0.0-1.0 mg/dL LAB TP(LOINC) Protein, Total 9.5 High 6.6-8.7 g/dL LAB GLOB(LOINC) Globulin Fraction 6.4 g/dL LAB AG(LOINC) Albumin/Glob Ratio 0.5 Low 1.0-2.5 Performed By: #### LIVP, BMP X, CDP #### [employer] [address] [place] [address] [id number] Cup[employer] Patcher Helper: Mo Feliciano MD CBC WITH DIFF Collected: 01/23/2025 6:12 PM Status: F Source: [facility] TYPE CODE TESTS RESULT OUT OF RANGE REFERENCE UNITS LAB WBC(LOINC) WBC Count 6.2 3.5-11.3 k/uL LAB RBC(LOINC) RBC Count 3.78 Low 4.21-5.77 m/uL LAB HGB(LOINC) Hemoglobin 10.9 Low 13.0-17.0 g/dL LAB HCT(LOINC) Hematocrit 33.6 Low 40.7-50.3 % LAB MCV(LOINC) MCV 88.9 82.6-102.9 fL LAB MCH(LOINC) MCH 28.8 25.2-33.5 pg LAB MCHC(LOINC) MCHC 32.4 28.4-34.8 g/dL LAB RDW(LOINC) RDW 13.1 11.8-14.4 % LAB PLT(LOINC) Platelet Count See Reflexed IPF Result 138-453 k/uL LAB PLTFL(LOINC) Platelet, Fluoresc. 3 Low alert 138-453 k/uL LAB IPLTF(LOINC) PLT, Immature Fract. 48.4 High 1.1-10.3 % LAB NRBCS(LOINC) NRBC Automated 0.0 0.0 per 100 WBC LAB SEG(LOINC) Neutrophil (Seg) 83 High 36-65 % LAB LYM(LOINC) Lymphocyte 12 Low 24-43 % LAB MON(LOINC) Monocyte 4 3-12 % LAB EO(LOINC) Eosinophil 0 Low 1-4 % LAB BASO(LOINC) Basophil 0 0-2 % LAB IGRAN(LOINC) Immature Granulocyte 1 High 0 % LAB ASEG(LOINC) Abs.Neutrophil (Seg) 5.15 1.50-8.10 k/uL LAB ALYM(LOINC) Abs. Lymph 0.76 Low 1.10-3.70 k/uL LAB AMONO(LOINC) Abs. Monocyte 0.22 0.10-1.20 k/u L LAB AEO(LOINC) Abs. Eosinophil <0.03 0.00-0.44 k/u L LAB ABASO(LOINC) Abs. Basophil <0.03 0.00-0.20 k/u L LAB AIGRAN(LOINC) Abs.Imm.Granulo cyte 0.03 0.00-0.30 k/uL Performed By: #### CDP #### [employer] [address] [place], [place] [id number] Cupola Patcher Helper: Mo Feliciano MD CT CHEST W CONTRAST Observed: 01/23/2025 4:23 PM Status: F Source: [facility] EXAMINATION: CT OF THE CHEST WITH CONTRAST [...] 3. Coronary artery atherosclerosis. 4. Hepatic steatosis. Interpreted by: Jason Mckeon MD Signed by: Jason Mckeon MD 01/23/25 Final result SEROTONIN REL ASSAY Collected: 01/24/20 10:21 AM Status: F Source: [facility] TYPE CODE TESTS RESULT OUT OF RANGE REFERENCE UNITS LAB HTYPP(LOINC) Heparin Type Porcine Heparin LAB HEPSRA(LOINC) KIM Heparin Plt Ab Negative Negative LAB HEPLD(LOINC) KIM Porc Low Dose 3 % LAB HEPHD(LOINC) KIM Porc High Dose 0 % LAB HEPINT(LOINC) KIM Porc Interp See Note Result Comment: (NOTE) This patient's specimen demonstrates a [...] regarding diagnosis of HIT is available at [employer]. INTERPRETIVE INFORMATION: KIM, Unfractionated Heparin This test was developed and its performance characteristics determined by [facility]. It has not been cleared or approved by the [place] Food and Drug Administration. This test was performed in a CLIA certified laboratory and is intended for clinical purposes. Performed By: [facility] [address] [place] [address] Printing Screen Assembler: Mariusz Melo MD, PhD CLIA Number: [id number] Performed By: #### SRAHEP ## ## [facility] [place] [address] Cupola Patcher Helper: Mo Feliciano MD [place] [phone] Cupola Patcher Helper: Silas Stewart MD IMMUNOTYPING,BLOOD Collected: 5 9:02 AM Status: F Source: [facility] TYPE CODE TESTS RESULT OUT OF RANGE REFERENCE UNITS LAB ITYPIN([facility] ) ITYP - Interpret. Immunotyping is negative for monoclonal immunoglobulin. LAB ITPATH([facility] ) PATHOLOGIST REVIEW ELECTRONICALLY SIGNED. PILLO ELY M.D. Performed By: #### ITYP, PE #### [place] [address] Cupola Patcher Helper: Mo Feliciano MD PROT. ELECTROPH, BL Collected: 01/24/20 25 9:02 AM Status: F Source: [facility] TYPE CODE TESTS RESULT OUT OF RANGE REFERENCE UNITS LAB TPPE([facility]) Protein, Total 8.3 6.6-8.7 g/dL LAB ALBU(LOINC) Albumin, Calc. 3.1 Low 3.2-5.2 g/dL LAB ALBUP(LOINC) Albumin, % 37 Low 56-66 % LAB A1(LOINC) Tnzau-5-ghkhrm ins 0.4 0.1-0.4 g/dL LAB A1P(LOINC) Opfau-6-ulbmmk ins,% 5 3-5 % LAB A2(LOINC) Vmhtg-5-qqrwlu ins 1.0 High 0.5-0.9 g/dL LAB A2P(LOINC) Yadvo-3-jxmeyr ins,% 11 7-12 % LAB BET(LOINC) Beta-globulins 0.8 0.7-1.4 g/dL LAB BETP(LOINC) Beta-globulins ,% 10 8-13 % LAB GAMM(LOINC) Gamma-globulin s 3.1 High 0.5-1.5 g/dL LAB GAMMP(LOINC) Gamma-globulin s,% 37 High 11-19 % LAB TOTPR(LOINC) Total Prot. Sum 8.4 High 6.3-8.2 g/dL LAB TOTPRP(LOINC) Total Prot. Sum,% 100 98-102 % LAB PEINT(LOINC) Prot. Elect-Interp Albumin is decreased. May be observed with hepatic diseases, Result Comment: proteinuria, malnutrition, acute phase response, and hemodilution. Elevated alpha 2 globulins. May be observed in a variety of conditions associated with acute tissue damage/necrosis and/or infection/inflammation, and also nephrotic disease. Polyclonal hypergammaglobulinemia is present. May be observed in a variety of conditions associated with chronic inflammation/infection, e.g. chronic hepatic disease, autoimmune diseases, granulomatous processes, etc. Immunotyping is negative for monoclonal immunoglobulin. LAB PATHR(LOINC) Pathologist Review: ELECTRONICALLY SIGNED. PILLO ELY M.D. Performed By: #### TREASURE, LENY #### [facility] [employer] [address] [place] [phone] Cupola Patcher Helper: Mo Feliciano MD B12/FOLATE PANEL Collected: 5 9:02 AM Status: F Source: [facility] TYPE CODE TESTS RESULT OUT OF RANGE REFERENCE UNITS LAB B12(LOINC) Vitamin B12 [phone] pg/mL LAB FOL(LOINC) Folic Acid 11.7 4.8-24.2 ng/mL Performed By: #### Simone PAVON ADM13 #### [facility] [address] [place] [address] Cupola Patcher Helper: Silas Stewart MD #### CMVGM, B12FOL #### [place] [id number] [place] [address] Cupola Patcher Helper: Mo Feliciano MD CMV IGG AND IGM Collected: 5 9:02 AM Status: F Source: [facility] TYPE CODE TESTS RESULT OUT OF RANGE REFERENCE UNITS LAB CMVG(LOINC) CMV Ab,IgG 744.0 High <0.5 Result Comment: Reference Range: <0.5 Non Reactive 0.5 [...] different assay methods cannot be used interchangeably. LAB CMVM(LOINC) CMV Ab,IgM 0.2 <0.7 Result Comment: Reference Range: <0.7 Non Reactive 0.7 [...] different assay methods cannot be used interchangeably. Performed By: #### Simone PAVON ADM13 #### [facility] [address] [place] [address] Cupola Patcher Helper: Silas Stewart MD #### CMVGM, B12FOL #### [address] [address] Cupola Patcher Helper: Mo Feliciano MD [id number] ACTIVITY Collected: 9:02 AM Status: F Source: [facility] TYPE CODE TESTS RESULT OUT OF RANGE REFERENCE UNITS LAB ADMT13(LOINC) AEDXHE71 Activity >100 >=61 % Result Comment: (NOTE) INTERPRETIVE INFORMATION: [id number] Activity [id number] levels of less than 10 percent may be associated with either inherited (Tomeka-Abel Syndrome) or acquired thrombotic thrombocytopenic purpura (TTP). A variety of medical conditions may result in a mild to moderate deficiency of JALIIA29 activity. Recent plasma exchange therapy may raise the observed KCTBPS62 activity. This test was developed and its performance characteristics determined by [facility]. It has not been cleared or approved by the [place] Food and Drug Administration. This test was performed in a CLIA certified laboratory and is intended for clinical purposes. Performed By: [facility] [address] [place] [id number] Printing Screen Assembler: Mariusz Melo MD, PhD CLIA Number: [id number] Performed By: #### AEBVPR, A ADM13 #### [address] [id number] Cupola Patcher Helper: Silas Stewart MD #### SHERINE, B12FOL #### [address] [id number] Cupola Patcher Helper: Mo Feliciano MD FEDERICO-SEWELL PANEL Collected: 01/23/2025 9:02 AM Sta tus: F Source: [facility] TYPE CODE TESTS RESULT OUT OF RANGE REFERENCE UNITS LAB EBCIG(LOINC) EBV Vir Caps Ab, IgG >750.0 High 0.0-21.9 U/mL Result Comment: (NOTE) INTERPRETIVE INFORMATION: Federico-Sewell Virus Antibody to Viral Capsid Antigen, IgG 17.9 U/mL or less.......Not Detected 18.0-21.9 U/mL..........Indeterminate - Repeat testing in 10-14 days may be helpful. 22.0 U/mL or greater....Detected LAB EBCIM(LOINC) EBV Vir Caps Ab, IgM 26.5 0.0-43.9 U/mL Result Comment: (NOTE) INTERPRETIVE INFORMATION: Federico-Sewell Virus Antibody to Viral Capsid Antigen, IgM 35.9 U/mL or less.......Not Detected 36.0-43.9 U/mL..........Indeterminate - Repeat testing in 10-14 days may be helpful. 44.0 U/mL or greater....Detected LAB EBNIG(LOINC) EBV Nuclear Ab,IgG >600.0 High 0.0-21.9 U/mL Result Comment: (NOTE) INTERPRETIVE INFORMATION: Federico-Sewell Virus Antibody to Nuclear Antigen, IgG 17.9 U/mL or less.......Not Detected 18.0-21.9 U/mL..........Indeterminate - Repeat testing in 10-14 days may be helpful. 22.0 U/mL or greater....Detected LAB EBEIG(LOINC) EBV Early(D) Ab,IgG >150.0 High 0.0-10.9 U/mL Result Comment: (NOTE) INTERPRETIVE INFORMATION: Federico-Sewell Virus Antibody to Early D Antigen (EA-D), IgG 8.9 U/mL or less........Not Detected 9.0-10.9 U/mL...........Indeterminate - Repeat testing in 10-14 days may be helpful. 11.0 U/mL or greater....Detected Performed By: [facility] [address] [place] [address] Printing Screen Assembler: Mariusz Melo MD, PhD CLIA Number: [id number] Performed By: #### AEBVESTEFANIA, A ADM13 #### [facility] [address] [place] [address] Cupola Patcher Helper: Silas Stewart MD #### CMVGM, B12FOL #### [facility] [address] [place] [address] Cupola Patcher Helper: Mo Feliciano MD BASIC METAB W/RFX MG Collected: 01/23/2025 4:02 AM S tatus: F Source: [facility] TYPE CODE TESTS RESULT OUT OF RANGE REFERENCE UNITS LAB NA(LOINC) NA (Sodium) 133 Low 136-145 mmol/L LAB K(LOINC) K (Potassium) 3.7 3.7-5.3 mmol/L LAB CL(LOINC) Chloride 102 98-107 mmol/L LAB HCO(LOINC) CO2 19 Low 20-31 mmol/L LAB GAP(LOINC) Anion Gap 12 9-16 mmol/L LAB GLU(LOINC) Glucose 88 74-99 mg/dL LAB BUN(LOINC) BUN (Urea N) 20 8-23 mg/dL LAB CRE(LOINC) Creatinine 0.6 Low 0.7-1.2 mg/dL LAB EGFR(LOINC) eGFR >90 >60 mL/min/1. 73m2 Result Comment: These results are not intended for [...] following therapy that affects renal tubular secretion. LAB CA(LOINC) Calcium 8.7 8.6-10.4 mg/dL Performed By: #### CDP, BMPX #### [facility] [place], [place] [id number] Cupola Patcher Helper: Mo Feliciano MD CBC WITH DIFF Collected: 01/23/2025 4:02 AM Status: F Source: [facility] TYPE CODE TESTS RESULT OUT OF RANGE REFERENCE UNITS LAB WBC(LOINC) WBC Count 7.5 3.5-11.3 k/uL LAB RBC(LOINC) RBC Count 4.12 Low 4.21-5.77 m/uL LAB HGB(LOINC) Hemoglobin 11.8 Low 13.0-17.0 g/dL LAB HCT(LOINC) Hematocrit 36.1 Low 40.7-50.3 % LAB MCV(LOINC) MCV 87.6 82.6-102.9 fL LAB MCH(LOINC) MCH 28.6 25.2-33.5 pg LAB MCHC(LOINC) MCHC 32.7 28.4-34.8 g/dL LAB RDW(LOINC) RDW 12.8 11.8-14.4 % LAB PLT(LOINC) Platelet Count See Reflexed IPF Result 138-453 k/uL LAB PLTFL(LOINC) Platelet, Fluoresc. <2 Low alert 138-453 k/uL LAB IPLTF(LOINC) PLT, Immature Fract. 28.7 High 1.1-10.3 % LAB NRBCS(LOINC) NRBC Automated 0.0 0.0 per 100 WBC LAB SEG(LOINC) Neutrophil (Seg) 63 36-65 % LAB LYM(LOINC) Lymphocyte 19 Low 24-43 % LAB MON(LOINC) Monocyte 17 High 3-12 % LAB EO(LOINC) Eosinophil 0 Low 1-4 % LAB BASO(LOINC) Basophil 0 0-2 % LAB IGRAN(LOINC) Immature Granulocyte 1 High 0 % LAB ASEG(LOINC) Abs.Neutrophil (Seg) 4.73 1.50-8.10 k/uL LAB ALYM(LOINC) Abs. Lymph 1.45 1.10-3.70 k/uL LAB AMONO(LOINC) Abs. Monocyte 1.24 High 0.10-1.20 k/u L LAB AEO(LOINC) Abs. Eosinophil <0.03 0.00-0.44 k/u L LAB ABASO(LOINC) Abs. Basophil <0.03 0.00-0.20 k/u L LAB AIGRAN(LOINC) Abs.Imm.Granulo cyte 0.06 0.00-0.30 k/uL Performed By: #### CDP, BMPX #### [facility] [place] [address] Cupola Patcher Helper: Mo Feliciano MD LIVER SPLEEN Observed: 01/22/2025 11:59 PM Status: F Source: [facility] EXAMINATION: RIGHT UPPER QUADRANT ULTRASOUND 01/22/2025 8:30 [...] is normal in size, measuring 9.2 cm. IMPRESSION: 1. Unremarkable right upper quadrant ultrasound. 2. Normal spleen. Interpreted by: Mary Erwin MD Signed by: Mary Erwin MD 01/22/25 Final result CBC WITH DIFF Collected: 01/22/2025 5:41 PM Status: F Source: [facility] TYPE CODE TESTS RESULT OUT OF RANGE REFERENCE UNITS LAB WBC(LOINC) WBC Count 5.1 3.5-11.3 k/uL LAB RBC(LOINC) RBC Count 4.87 4.21-5.77 m/uL LAB HGB(LOINC) Hemoglobin 13.9 13.0-17.0 g/dL LAB HCT(LOINC) Hematocrit 42.8 40.7-50.3 % LAB MCV(LOINC) MCV 87.9 82.6-102.9 fL LAB MCH(LOINC) MCH 28.5 25.2-33.5 pg LAB MCHC(LOINC) MCHC 32.5 28.4-34.8 g/dL LAB RDW(LOINC) RDW 13.0 11.8-14.4 % LAB PLT(LOINC) Platelet Count See Reflexed IPF Result 138-453 k/uL LAB PLTFL(LOINC) Platelet, Fluoresc. <2 Low alert 138-453 k/uL LAB IPLTF(LOINC) PLT, Immature Fract. 0.0 Low 1.1-10.3 % LAB NRBCS(LOINC) NRBC Automated 0.0 0.0 per 100 WBC LAB SEG(LOINC) Neutrophil (Seg) 78 High 36-65 % LAB LYM(LOINC) Lymphocyte 15 Low 24-43 % LAB MON(LOINC) Monocyte 6 3-12 % LAB EO(LOINC) Eosinophil 0 Low 1-4 % LAB BASO(LOINC) Basophil 0 0-2 % LAB IGRAN(LOINC) Immature Granulocyte 1 High 0 % LAB ASEG(LOINC) Abs.Neutrophil (Seg) 4.02 1.50-8.10 k/uL LAB ALYM(LOINC) Abs. Lymph 0.75 Low 1.10-3.70 k/uL LAB AMONO(LOINC) Abs. Monocyte 0.33 0.10-1.20 k/u L LAB AEO(LOINC) Abs. Eosinophil <0.03 0.00-0.44 k/u L LAB ABASO(LOINC) Abs. Basophil <0.03 0.00-0.20 k/u L LAB AIGRAN(LOINC) Abs.Imm.Granulo cyte 0.03 0.00-0.30 k/uL Performed By: #### CDP #### [facility] [address] [place] [phone] Cupola Patcher Helper: Mo Feliciano MD GL HEMOSTASIS TEG W/LYSIS Collected: 12:17 PM Status: F Source: [facility] TYPE CODE TESTS RESULT OUT OF RANGE REFERENCE UNITS LAB RTEG(LOINC) R(Reaction Time) TEG 14.7 High 4.6-9.1 min LAB LY30(LOINC) LY30 (Lysis) TEG 0.0 0.0-2.6 % LAB MARTEG(LOINC) MA Rapid TEG <40.0 Low 52.0-70 mm LAB MAFF(LOINC) Fibrinogen, Func TEG 39.8 High 15.0-32.0 mm Performed By: #### GHLTEG ## ## [facility] [employer] [address] [place] [phone] Cupola Patcher Helper: Mo Feliciano MD HEPATITIS ACUTE ANGELI Collected: 12:17 PM Status: F Source: [facility] TYPE CODE TESTS RESULT OUT OF RANGE REFERENCE UNITS LAB HBS(LOINC) Hep B Surf Ag NONREACTIVE NR LAB AHCV(LOINC) Hep C Ab NONREACTIVE NR Result Comment: The hepatitis C procedure used in [...] recommended by ordering HCV RNA by PCR. LAB ABCM([facility]) Hep B Core Ab,IgM NONREACTIVE NR LAB [facility]) Hep A Ab,IgM NONREACTIVE NR Performed By: #### PHEP #### [address] [address] Cupola Patcher Helper: Mo Feliciano MD CULT,BLOOD Observed: 01/22/2025 12:13 PM Status: F Source: [facility] Specimen Description .BLOOD Special Requests RH 9ML Culture NO GROWTH 5 DAYS Report Status FINAL 01/27/2025 Performed By: #### BC #### [address] [address] Cupola Patcher Helper: Mo Feliciano MD CULT,BLOOD Observed: 01/22/2025 12:07 PM Status: F Source: [facility] Specimen Description .BLOOD Special Requests LH 10ML Culture NO GROWTH 5 DAYS Report Status FINAL 01/27/2025 Performed By: #### BC #### [address] [address] Cupola Patcher Helper: Mo Feliciano MD XR CHEST PORTABLE Observed: 01/22/2025 11:44 AM Status: F Source: [facility] EXAMINATION: ONE XRAY VIEW OF THE CHEST 01/22/2025 10:57 am COMPARISON: None. HISTORY: ORDERING SYSTEM PROVIDED HISTORY: To look for pnemonia TECHNOLOGIST PROVIDED HISTORY: To look for pnemonia FINDINGS: Lungs: Clear. Pleura: No effusion or pneumothorax. Cardiomediastinal silhouette: Normal contours. Bones: No acute bony findings. Soft tissues: Normal. IMPRESSION: No acute pulmonary findings. Interpreted by: Bayron Hermosillo DO Signed by: Bayron Hermosillo DO 01/22/25 Final result ARTERIAL BLD GAS,POC Collected: 025 10:30 AM Status: F Source: [facility] TYPE CODE TESTS RESULT OUT OF RANGE REFERENCE UNITS LAB PHOAP([facility]) pH, Arterial 7.511 High 7.350-7.450 LAB PCO2AP([facility]) pCO2, Arterial 27.3 Low 35.0-48.0 mm Hg LAB PO2AP([facility]) pO2, Arterial 87.1 83.0-108.0 mm Hg LAB HCOOA([facility]) Bicarbonate,A rterial (calc) 21.9 21.0-28.0 mmol/L LAB PBEOA([facility]) Positive Base Excess (calc) 0.2 0.0-3.0 mmol/L LAB SOOA([facility]) O2 Sat, Art (calc) 97.7 94.0-98.0 % LAB O2DELO([facility]) O2 Device Room Air LAB ALLENP([facility]) Jone Test POSITIVE LAB SITEP([facility]) Site Drawn Right Radial Artery GLUCOSE (POC) Collected: 01/22/2025 10:30 AM Status: F Source: [facility] TYPE CODE TESTS RESULT OUT OF RANGE REFERENCE UNITS LAB GLUCO([facility]) Glucose (POC) 126 High 74-100 mg/dL DIRECT ANTIGLOBULIN TEST Observed: 01/22 9:34 AM Status: F Source: [facility] JAJA, Polyspecific NEGATIVE Performed By: #### PDAT #### [facility] [employer] [address] [place] [address] Cupola Patcher Helper: Mo Feliciano MD FIBRINOGEN Collected: 9:34 AM Status: F Source: [facility] TYPE CODE TESTS RESULT OUT OF RANGE REFERENCE UNITS LAB FIB([facility]) Fibrinogen 681 High 203-521 mg/dL Performed By: #### ANAX, HP4 AB, DIME, CDP, FDP, ANRFX, HIVCMB, PRCAL, BMPX, FIB #### [facility] [employer] [address] [place] [address] Cupola Patcher Helper: Mo Feliciano MD FIBRIN SPLIT PROD Collected: 01/22/2025 9:34 AM Stat us: F Source: [facility] TYPE CODE TESTS RESULT OUT OF RANGE REFERENCE UNITS LAB FDP([facility]) Fibrin Split Prod >5 High <5 ug/mL Result Comment: <20 Performed By: #### ANAX, HP4 AB, DIME, CDP, FDP, ANRFX, HIVCMB, PRCAL, BMPX, FIB #### [facility] [place] [address] Cupola Patcher Helper: Mo Feliciano MD CBC WITH DIFF Collected: 01/22/2025 9:34 AM Status: F Source: [facility] TYPE CODE TESTS RESULT OUT OF RANGE REFERENCE UNITS LAB WBC(LOINC) WBC Count 7.2 3.5-11.3 k/uL LAB RBC(LOINC) RBC Count 4.67 4.21-5.77 m/uL LAB HGB(LOINC) Hemoglobin 13.4 13.0-17.0 g/dL LAB HCT(LOINC) Hematocrit 40.9 40.7-50.3 % LAB MCV(LOINC) MCV 87.6 82.6-102.9 fL LAB MCH(LOINC) MCH 28.7 25.2-33.5 pg LAB MCHC(LOINC) MCHC 32.8 28.4-34.8 g/dL LAB RDW(LOINC) RDW 12.9 11.8-14.4 % LAB PLT(LOINC) Platelet Count See Reflexed IPF Result 138-453 k/uL LAB PLTFL(LOINC) Platelet, Fluoresc. 2 Low alert 138-453 k/uL LAB IPLTF(LOINC) PLT, Immature Fract. 4.8 1.1-10.3 % LAB NRBCS(LOINC) NRBC Automated 0.0 0.0 per 100 WBC LAB SEG(LOINC) Neutrophil (Seg) 66 High 36-65 % LAB LYM(LOINC) Lymphocyte 22 Low 24-43 % LAB MON(LOINC) Monocyte 11 3-12 % LAB EO(LOINC) Eosinophil 1 1-4 % LAB BASO(LOINC) Basophil 0 0-2 % LAB IGRAN(LOINC) Immature Granulocyte 0 0 % LAB ASEG(LOINC) Abs.Neutrophil (Seg) 4.73 1.50-8.10 k/uL LAB ALYM(LOINC) Abs. Lymph 1.57 1.10-3.70 k/uL LAB AMONO(LOINC) Abs. Monocyte 0.79 0.10-1.20 k/u L LAB AEO(LOINC) Abs. Eosinophil 0.04 0.00-0.44 k/u L LAB ABASO(LOINC) Abs. Basophil 0.03 0.00-0.20 k/u L LAB AIGRAN(LOINC) Abs.Imm.Granulo cyte 0.03 0.00-0.30 k/uL Performed By: #### ANAX, HP4 AB, DIME, CDP, FDP, ANRFX, HIVCMB, PRCAL, BMPX, FIB #### [facility] [employer] [address] [place] [address] Cupola Patcher Helper: Mo Feliciano MD BASIC METAB W/RFX MG Collected: 01/22/2025 9:34 AM S madonna: Geoffrey Source: [facility] TYPE CODE TESTS RESULT OUT OF RANGE REFERENCE UNITS LAB NA(LOINC) NA (Sodium) 135 Low 136-145 mmol/L LAB K(LOINC) K (Potassium) 3.9 3.7-5.3 mmol/L LAB CL(LOINC) Chloride 101 98-107 mmol/L LAB HCO(LOINC) CO2 19 Low 20-31 mmol/L LAB GAP(LOINC) Anion Gap 15 9-16 mmol/L LAB GLU(LOINC) Glucose 111 High 74-99 mg/dL LAB BUN(LOINC) BUN (Urea N) 13 8-23 mg/dL LAB CRE(LOINC) Creatinine 0.6 Low 0.7-1.2 mg/dL LAB EGFR(LOINC) eGFR >90 >60 mL/min/1. 73m2 Result Comment: These results are not intended for [...] following therapy that affects renal tubular secretion. LAB CA(LOINC) Calcium 9.3 8.6-10.4 mg/dL Performed By: #### ANAX, HP4 AB, DIME, CDP, FDP, ANRFX, HIVCMB, PRCAL, BMPX, FIB #### [employer] [facility] [place], [place] [id number] Cupola Patcher Helper: Mo Feliciano MD PROCALCITONIN Collected: 01/22/2025 9:34 AM Status: F Source: [facility] TYPE CODE TESTS RESULT OUT OF RANGE REFERENCE UNITS LAB PRCL(LOINC) Procalcitonin 0.06 0.00-0.09 ng/m L Result Comment: Suspected Sepsis: <0.50 ng/mL Low likelihood of sepsis. 0.50-2.00 ng/mL Increased likelihood of sepsis. Antibiotics encouraged. >2.00 ng/mL High risk of sepsis/shock. Antibiotics strongly encouraged. Suspected Lower Resp Tract Infections: <0.24 ng/mL Low likelihood of bacterial infection. >0.24 ng/mL Increased likelihood of bacterial infection. Antibiotics encouraged. With successful antibiotic therapy, PCT levels should decrease rapidly. (Half-life of 24 to 36 hours.) Procalcitonin values from samples collected within the first 6 hours of systemic infection may still be low. Retesting may be indicated. Values from day 1 and day 4 can be entered into the Change in Procalcitonin Calculator ([email or web address]) to determine the patient's Mortality Risk Prognosis In healthy neonates, plasma Procalcitonin (PCT) concentrations increase gradually after , reaching peak values at about 24 hours of age then decrease to normal values below 0.5 ng/mL by 48-72 hours of age. Performed By: #### ANAX, HP4 AB, DIME, CDP, FDP, ANRFX, HIVCMB, PRCAL, BMPX, FIB #### [employer] [address] [place] [address] Cupola Patcher Helper: Mo Feliciano MD D-DIMER TEST Collected: 9:34 AM Status: F Source: [facility] TYPE CODE TESTS RESULT OUT OF RANGE REFERENCE UNITS LAB DIME(LOINC) D-Dimer Test 2.86 High 0.00-0.57 ug/mL FEU Result Comment: When combined with a low clinical [...] more prevalent in patients with distal DVT. Performed By: #### ANAX, HP4 AB, DIME, CDP, FDP, ANRFX, HIVCMB, PRCAL, BMPX, FIB #### [employer] [address] [place] [address] Cupola Patcher Helper: Mo Feliciano MD HIV AG/AB Collected: 9:34 AM Status: F Source: [facility] TYPE CODE TESTS RESULT OUT OF RANGE REFERENCE UNITS LAB CMBHIV([facility]) HIV Ag/Ab NONREACTIVE NR Result Comment: No laborator y evidence of HIV infection. If acute HIV infection is suspected, consider testing for HIV-1 RNA. Performed By: #### ANAX, HP4 AB, DIME, CDP, FDP, ANRFX, HIVCMB, PRCAL, BMPX, FIB #### [employer] [address] [place] [address] Cupola Patcher Helper: Mo Feliciano MD HEPARIN PLATELET AB Collected: 01/23/20 9:34 AM Status: F Source: [facility] TYPE CODE TESTS RESULT OUT OF RANGE REFERENCE UNITS LAB HP4AB([facility]) Heparin Platelet Ab 1.247 High 0.000-0.400 O.D. Result Comment: O.D. Interpretation: <=0.400 Negative > 0.400 Positive Performed By: #### ANAX, HP4 AB, DIME, CDP, FDP, ANRFX, HIVCMB, PRCAL, BMPX, FIB #### [employer] [address] [place] [phone] Cupola Patcher Helper: Mo Feliciano MD ONOFRE SCREEN W/REFLEX Collected: 01/23/20 9:34 AM Status: F Source: [facility] TYPE CODE TESTS RESULT OUT OF RANGE REFERENCE UNITS LAB ANASCX(LOINC) ONOFRE Screen POSITIVE Abnormal NEG LAB ENASC(LOINC) DAVID Screen 0.5 <0.7 U/mL Result Comment: Reference Range: <0.7 Negative 0.7-1.0 Equivocal >1.0 Positive DAVID Screen includes U1RNP,RNP70,Sm,Ro(SS-A),La(SS-B),CENP,Scl-70,Val-1 LAB DSDNA(LOINC) Anti-dsDNA 35.0 High <10.0 IU/mL Result Comment: Reference Range: <10.0 Negative 10.0-15.0 Equivocal >15.0 Positive Performed By: #### ANAX, HP4 AB, DIME, CDP, FDP, ANRFX, HIVCMB, PRCAL, BMPX, FIB #### [employer] [address] [place] [phone] Cupola Patcher Helper: Mo Feliciano MD ONOFRE PROFILE Collected: 01/22/2025 9:34 AM Status: F Source: [facility] TYPE CODE TESTS RESULT OUT OF RANGE REFERENCE UNITS LAB ASMITH(LOINC) Anti-Sm 1.6 <7.0 U/mL Result Comment: Reference Range: <7.0 Negative 7.0-10.0 Equivocal >10.0 Positive LAB RPGIG(LOINC) Ribosomal P Ab, IgG 7.9 High <7.0 U/mL Result Comment: Reference Range: <7.0 Negative 7.0-10.0 Equivocal >10.0 Positive LAB RNP3IG(LOINC) RNA Polymerase III Ab,IgG 1.5 <7.0 U/mL Result Comment: Reference Range: <7.0 Negative 7.0-10.0 Equivocal >10.0 Positive LAB SCL70(LOINC) Anti-Scleroderm a 3.0 <7.0 U/mL Result Comment: Reference Range: <7.0 Negative 7.0-10.0 Equivocal >10.0 Positive LAB ARNP70(LOINC) Anti-RNP70 1.7 <7.0 U/mL Result Comment: Reference Range: <7.0 Negative 7.0-10.0 Equivocal >10.0 Positive LAB U1RNP(LOINC) Anti-U1RNP 3.1 <5.0 U/mL Result Comment: Reference Range: <5.0 Negative 5.0-10.0 Equivocal >10.0 Positive LAB R52IG(LOINC) Ro 52 Ab, IgG 0.9 <7.0 U/mL Result Comment: Reference Range: <7.0 Negative 7.0-10.0 Equivocal >10.0 Positive LAB R60IG(LOINC) Ro 60 Ab, IgG 1.0 <7.0 U/mL Result Comment: Reference Range: <7.0 Negative 7.0-10.0 Equivocal >10.0 Positive LAB SSBLA(LOINC) SSB 0.7 <7.0 U/mL Result Comment: Reference Range: <7.0 Negative 7.0-10.0 Equivocal >10.0 Positive LAB JO1(LOINC) Anti-Val-1 0.7 <7.0 U/mL Result Comment: Reference Range: <7.0 Negative 7.0-10.0 Equivocal >10.0 Positive LAB CMB(LOINC) Anti-Centromere 1.0 <7.0 U/mL Result Comment: Reference Range: <7.0 Negative 7.0-10.0 Equivocal >10.0 Positive Performed By: #### ANAX, HP4 AB, DIME, CDP, FDP, ANRFX, HIVCMB, PRCAL, BMPX, FIB #### [employer] [address] [place] [id number] [employer] Helper: Mo Feliciano MD MRSA, DNA, NASAL Collected: 01/22/2025 4:56 AM Statu s: F Source: [facility] TYPE CODE TESTS RESULT OUT OF RANGE REFERENCE UNITS LAB MRSASC(LOINC) Specimen Description .NASAL SWAB LAB MRSARE(LOINC) MRSA, DNA, Nasal NEGATIVE NEG Result Comment: NEGATIVE: MR SA DNA not detected by nucleic acid amplification. Results should be used as an adjunct to nosocomial control efforts to identify patients needing enhanced precautions. The test is not intended to identify patients with staphylococcal infections. Results should not be used to guide or monitor treatment for MRSA infections. Performed By: #### MRSANO ## ## [facility] [employer] [address] [place] [address] [id number] [employer] Helper: Mo Feliciano MD URINALYSIS,MICRO Collected: 4:25 AM Status: F Source: [facility] TYPE CODE TESTS RESULT OUT OF RANGE REFERENCE UNITS LAB UWBC(LOINC) Urine WBC's None 0-5 /HPF LAB URBC(LOINC) Urine RBC's 10 TO 20 0-4 /HPF Result Comment: Reference ra nge defined for non-centrifuged specimen. LAB CAST(LOINC) Casts None 0-8 /LPF Result Comment: Reference ra nge defined for non-centrifuged specimen. LAB EPITH(LOINC) Epithelial cells None 0-5 /HPF LAB BACT(LOINC) Bacteria None NONE Performed By: #### UAX, UMIC AO #### [facility] [employer] [address] [place] [address] [phone] Cupola Patcher Helper: Mo Feliciano MD UA W/REFLEX CULTURE Collected: 01/23/20 4:25 AM Status: F Source: [facility] TYPE CODE TESTS RESULT OUT OF RANGE REFERENCE UNITS LAB UCO(LOINC) Color Yellow YEL LAB UTU(LOINC) Clarity, Urine Clear CLEAR LAB UGL(LOINC) Glucose,Semi- qnt,Ur NEGATIVE NEG mg/dL LAB UBI(LOINC) Bilirubin, SemiQt,Ur NEGATIVE NEG LAB UKE(LOINC) Ketones, Urine NEGATIVE NEG mg/dL LAB USG(LOINC) Spec. [place],Ur 1.052 High 1.005-1.030 LAB UHB(LOINC) Blood, Urine MODERATE Abnormal NEG LAB UPH(LOINC) PH,Ur 5.5 5.0-8.0 LAB UPR(LOINC) Protein, Semi-qnt,Ur NEGATIVE NEG mg/dL LAB UUR(LOINC) Urobilinogen, Ur Normal 0.0-1.0 EU/dL LAB UNI(LOINC) Nitrite,Ur NEGATIVE NEG LAB ULE(LOINC) Leukocyte Esterase NEGATIVE NEG Performed By: #### UAX, UMIC AO #### [employer] [facility] [place], [place] [phone] Cupola Patcher Helper: Mo Feliciano MD SURGICAL PATHOLOGY REPORT Observed: 12/31 4:18 AM Status: F Source: [facility] (NOTE) [id number] [employer] CONSULTING PATHOLOGISTS [facility] ANATOMIC PATHOLOGY [address] [place] [phone] SURGICAL PATHOLOGY CONSULTATION Patient Name: AMBROSIO RAMÍREZ V. MR#: [id number] Specimen #[id number] Procedures/Addenda PERIPHERAL BLOOD REPORT Date Ordered: 01/23/2025 Status: Signed Out Date Complete: 01/25/2025 By: Tamanna Gonzales M.D. Date Reported: 01/25/2025 INTERPRETATION Peripheral blood: - Normocytic red blood cells with unremarkable morphology. - White blood cells with normal morphology. No blasts. - Marked thrombocytopenia. RESULTS-COMMENTS PERIPHERAL BLOOD STUDY CBC: Please see the electronic health record for CBC parameters ([id number], 01/22/2025, 04:18). PLATELETS: Marked thrombocytopenia. LEUKOCYTES: White blood cells show normal morphology. No atypical lymphocytes. No dysplasia. There are no blasts. ERYTHROCYTES: Red blood cells show normal morphology. No schistocytes. Note: The electronic health record is reviewed. Tamanna Gonzales M.D. Source: A: Peripheral Blood LACTIC ACID Collected: 4:18 AM Status: F Source: [facility] TYPE CODE TESTS RESULT OUT OF RANGE REFERENCE UNITS LAB LACWB(LOINC) Lactic Acid,Whole Bl 1.3 0.7-2.1 mmol/L Performed By: #### CK, LIVP, SED, RETCT, PATH, RICO, CRP, TSHX, LD, HAPT, BMPX, CDP, LACTIC #### [employer] [address] [place], [place] [phone] Cupola Patcher Helper: Mo Feliciano MD RETIC COUNT Collected: 01/22/2025 4:18 AM Status: F Source: [facility] TYPE CODE TESTS RESULT OUT OF RANGE REFERENCE UNITS LAB RET(LOINC) Retic Count 0.8 0.5-1.9 % LAB ABRET(LOINC) Absolute Retic 0.039 0.030-0.080 M/uL LAB IRF(LOINC) IRF 17.0 2.7-18.3 % LAB RHGB(LOINC) Retic Hemoglobin 29.9 28.2-35.7 pg Performed By: #### CK, LIVP, SED, RETCT, PATH, RICO, CRP, TSHX, LD, HAPT, BMPX, CDP, LACTIC #### [employer] [address] [place], [place] [phone] Cupola Patcher Helper: Mo Feliciano MD CBC WITH DIFF Collected: 01/22/2025 4:18 AM Status: F Source: [facility] TYPE CODE TESTS RESULT OUT OF RANGE REFERENCE UNITS LAB WBC(LOINC) WBC Count 8.3 3.5-11.3 k/uL LAB RBC(LOINC) RBC Count 4.70 4.21-5.77 m/uL LAB HGB(LOINC) Hemoglobin 13.6 13.0-17.0 g/dL LAB HCT(LOINC) Hematocrit 40.6 Low 40.7-50.3 % LAB MCV(LOINC) MCV 86.4 82.6-102.9 fL LAB MCH(LOINC) MCH 28.9 25.2-33.5 pg LAB MCHC(LOINC) MCHC 33.5 28.4-34.8 g/dL LAB RDW(LOINC) RDW 12.8 11.8-14.4 % LAB PLT(LOINC) Platelet Count See Reflexed IPF Result 138-453 k/uL LAB PLTFL(LOINC) Platelet, Fluoresc. <2 Low alert 138-453 k/uL LAB IPLTF(LOINC) PLT, Immature Fract. 0.0 Low 1.1-10.3 % LAB NRBCS(LOINC) NRBC Automated 0.0 0.0 per 100 WBC LAB SEG(LOINC) Neutrophil (Seg) 68 High 36-65 % LAB LYM(LOINC) Lymphocyte 19 Low 24-43 % LAB MON(LOINC) Monocyte 11 3-12 % LAB EO(LOINC) Eosinophil 0 Low 1-4 % LAB BASO(LOINC) Basophil 0 0-2 % LAB IGRAN(LOINC) Immature Granulocyte 1 High 0 % LAB ASEG(LOINC) Abs.Neutrophil (Seg) 5.63 1.50-8.10 k/uL LAB ALYM(LOINC) Abs. Lymph 1.60 1.10-3.70 k/uL LAB AMONO(LOINC) Abs. Monocyte 0.94 0.10-1.20 k/u L LAB AEO(LOINC) Abs. Eosinophil <0.03 0.00-0.44 k/u L LAB ABASO(LOINC) Abs. Basophil 0.03 0.00-0.20 k/u L LAB AIGRAN(LOINC) Abs.Imm.Granulo cyte 0.05 0.00-0.30 k/uL Performed By: #### CK, LIVP, SED, RETCT, PATH, RICO, CRP, TSHX, LD, HAPT, BMPX, CDP, LACTIC #### [employer] [address] [place] [phone] Cupola Patcher Helper: Mo Feliciano MD SEDIMENTATION RATE Collected: 01/22/2025 4:18 AM Sta tus: F Source: [facility] TYPE CODE TESTS RESULT OUT OF RANGE REFERENCE UNITS LAB SED(LOINC) Sedimentation Rate 119 High 0-20 mm/Hr Performed By: #### CK, LIVP, SED, RETCT, PATH, RICO, CRP, TSHX, LD, HAPT, BMPX, CDP, LACTIC #### [employer] [address] [place] [phone] Cupola Patcher Helper: Mo Feliciano MD BASIC METAB W/RFX MG Collected: 01/22/2025 4:18 AM S tatus: F Source: [facility] TYPE CODE TESTS RESULT OUT OF RANGE REFERENCE UNITS LAB NA(LOINC) NA (Sodium) 136 136-145 mmol/L LAB K(LOINC) K (Potassium) 3.9 3.7-5.3 mmol/L LAB CL(LOINC) Chloride 101 98-107 mmol/L LAB HCO(LOINC) CO2 20 20-31 mmol/L LAB GAP(LOINC) Anion Gap 15 9-16 mmol/L LAB GLU(LOINC) Glucose 112 High 74-99 mg/dL LAB BUN(LOINC) BUN (Urea N) 13 8-23 mg/dL LAB CRE(LOINC) Creatinine 0.6 Low 0.7-1.2 mg/dL LAB EGFR(LOINC) eGFR >90 >60 mL/min/1. 73m2 Result Comment: These results are not intended for [...] following therapy that affects renal tubular secretion. LAB CA(LOINC) Calcium 9.2 8.6-10.4 mg/dL Performed By: #### CK, LIVP, SED, RETCT, PATH, RICO, CRP, TSHX, LD, HAPT, BMPX, CDP, LACTIC #### [employer] [address] [place] [phone] Cupola Pat[employer] Helper: Mo Feliciano MD HAPTOGLOBIN Collected: 4:18 AM Status: F Source: [facility] TYPE CODE TESTS RESULT OUT OF RANGE REFERENCE UNITS LAB HAPT(LOINC) Haptoglobin 381 High 30-200 mg/dL Performed By: #### CK, LIVP, SED, RETCT, PATH, RICO, CRP, TSHX, LD, HAPT, BMPX, CDP, LACTIC #### [employer] [address] [place] [address] [phone] Cupola Patcher Helper: Mo Feliciano MD LACTATE DEHYDROGENASE Collected: 01/22/2025 4:18 AM Status: F Source: [facility] TYPE CODE TESTS RESULT OUT OF RANGE REFERENCE UNITS LAB LD(LOINC) Lactate Dehydrogenase 193 135-225 U/L Performed By: #### CK, LIVP, SED, RETCT, PATH, RICO, CRP, TSHX, LD, HAPT, BMPX, CDP, LACTIC #### [address] [address] Cup[employer] Patcher Helper: Mo Feliciano MD TSH W/REFLEX TO FT4 Collected: 01/23/20 4:18 AM Status: F Source: [facility] TYPE CODE TESTS RESULT OUT OF RANGE REFERENCE UNITS LAB TSH(LOINC) Thyroid Stim. Horm. 1.24 0.27-4.20 uIU/mL Performed By: #### CK, LIVP, SED, RETCT, PATH, RICO, CRP, TSHX, LD, HAPT, BMPX, CDP, LACTIC #### [address] [address] Cupola Patcher Helper: Mo Feliciano MD CREATINE KINASE Collected: 01/22/2025 4:18 AM Status : F Source: [facility] TYPE CODE TESTS RESULT OUT OF RANGE REFERENCE UNITS LAB CK(LOINC) Creatine Kinase 62 39-308 U/L Performed By: #### CK, LIVP, SED, RETCT, PATH, RICO, CRP, TSHX, LD, HAPT, BMPX, CDP, LACTIC #### [address] [address] Cupola Patcher Helper: Mo Feliciano MD C-REACTIVE PROTEIN Collected: 01/22/2025 4:18 AM Sta tus: F Source: [facility] TYPE CODE TESTS RESULT OUT OF RANGE REFERENCE UNITS LAB CRP(LOINC) C-Reactive Protein 38.0 High 0.0-5.0 mg/L Performed By: #### CK, LIVP, SED, RETCT, PATH, RICO, CRP, TSHX, LD, HAPT, BMPX, CDP, LACTIC #### [address] [address] Cupola Patcher Helper: Mo Feliciano MD LIVER PROFILE Collected: 01/22/2025 4:18 AM Status: F Source: [facility] TYPE CODE TESTS RESULT OUT OF RANGE REFERENCE UNITS LAB ALB(LOINC) Albumin 3.8 3.5-5.2 g/dL LAB ALP(LOINC) Alkaline Phos 84 40-129 U/L LAB ALT(LOINC) ALT 36 10-50 U/L LAB AST(LOINC) AST 28 10-50 U/L LAB TBIL(LOINC) Bilirubin, Total 0.5 0.0-1.2 mg/dL LAB DBILI(LOINC) Bilirubin, Direct 0.3 High 0.0-0.2 mg/dL LAB IBIL(LOINC) Bilirubin, Indirect 0.2 0.0-1.0 mg/dL LAB TP(LOINC) Protein, Total 8.0 6.6-8.7 g/dL LAB GLOB(LOINC) Globulin Fraction 4.2 g/dL LAB AG(INC) Albumin/Glob Ratio 0.9 Low 1.0-2.5 Performed By: #### CK, LIVP, SED, RETCT, PATH, RICO, CRP, TSHX, LD, HAPT, BMPX, CDP, LACTIC #### [facility] [address] [place] [address] [phone] Cup[employer] Patcher Helper: Mo Feliciano MD MYOGLOBIN Collected: 5 4:18 AM Status: F Source: [facility] TYPE CODE TESTS RESULT OUT OF RANGE REFERENCE UNITS LAB RICO([facility]) Myoglobin 27 Low 28-72 ng/mL Performed By: #### CK, LIVP, SED, RETCT, PATH, RICO, CRP, TSHX, LD, HAPT, BMPX, CDP, LACTIC #### [employer] [address] [place] [address] [phone] Cupola Patcher Helper: Mo Feliciano MD SMEAR TO PATHOLOGIST Collected: 025 4:18 AM Status: F Source: [facility] TYPE CODE TESTS RESULT OUT OF RANGE REFERENCE UNITS LAB [facility] Smear to Pathologist ELECTRONICALLY SIGNED. TAMANNA GONZALES M.D. Performed By: #### CK, LIVP, SED, RETCT, PATH, RICO, CRP, TSHX, LD, HAPT, BMPX, CDP, LACTIC #### [employer] [address] [place] [address] [phone] Cupola Patcher Helper: Mo Feliciano MD PT Collected: 01/22/2025 4:07 AM Status: F Source: [facility] TYPE CODE TESTS RESULT OUT OF RANGE REFERENCE UNITS LAB PTR(LOINC) Prothrombin Time 14.2 11.7-14.9 se c LAB INR(LOINC) INR 1.1 Result Comment: Therapeutic Range: Moderate Anticoagulant Intensity: INR = 2.0-3.0 High Anticoagulant Intensity: INR = 2.5-3.5 Performed By: #### PT, PTT # ### [employer] [address] [place] [address] Cupola Patcher Helper: Mo Feliciano MD APTT Collected: 4:07 AM Status: F Source: [facility] TYPE CODE TESTS RESULT OUT OF RANGE REFERENCE UNITS LAB PTTR(LOINC) PTT 66.5 High 23.0-36.5 sec Result Comment: IV Heparin Therapy Range: 66.0-92.0 sec Performed By: #### PT, PTT # ### [employer] [address] [place] [address] Cupola Patcher Helper: Mo Feliciano MD PATIENT EDUCATION - TEXT Observed: 01/04 11:58 AM Status: C Source: [facility] Patient Education - Text Procedures Abdominal Aortic Aneurysm Endograft Repair, Care After After abdominal aortic aneurysm endograft repair it is common to have pain or soreness at the incision site. You may also have tiredness (fatigue). Follow these instructions at home: Medicines ??? Take wjjk-yjp-wtzjbaf and prescription medicines only as told by [...] and water are not available, use hand principal examiner. ? Change your dressing as told by [...] provider. Document Revised: 03/25/2023 Document Reviewed: 03/25/2023 [employer] Patient Education ? 2023 [employer].Abdominal Aortic Aneurysm Endograft Repair Abdominal aortic aneurysm [...] including vitamins, herbs, eye drops, creams, and chjz-kqp-mcebxmg medicines. ??? Any problems you or family [...] your provider tells you to. ??? Taking tlbg-ygb-eoqxndv medicines, vitamins, herbs, and supplements. Tests You [...] provider. Document Revised: 03/25/2023 Document Reviewed: 03/25/2023 [employer] Patient Education ? 2023 [employer]. INPATIENT PATIENT SUMMARY Observed: 01/2025 11:58 AM Status: C Source: [facility] Inpatient Patient Summary AMBROSIO RAMÍREZ :1960 Visit Date:01/03/2025 Inpatient Discharge Instructions [...] Up Appointments after Discharge Follow Up with April Thompson MD When: Within 2 to 4 weeks Comments: Call for followup appointment and will need CTA run off prior to appt Where: [place] [address]- Follow Up with PRISCILA ODOM When: Within 7 to 10 days Comments: Call for followup appointment Call physician if symptoms worsen Where: [place] [address] [facility] (1) Medications What How Much When Instructions [...] these instructions at home: Medicines ??? Take sscw-fkc-gohefrq and prescription medicines only as told by [...] and water are not available, use hand principal examiner. ? Change your dressing as told by [...] Reviewed: 03/25/2023 Elsevier Patient Education ??? 2023 [employer] Abdominal Aortic Aneurysm Endograft Repair Abdominal [...] including vitamins, herbs, eye drops, creams, and ntmf-uyl-zquzgqa medicines. ??? Any problems you or family [...] your provider tells you to. ??? Taking tnoj-nzo-ksykuzb medicines, vitamins, herbs, and supplements. Tests You [...] provider. Document Revised: 03/25/2023 Document Reviewed: 03/25/2023 [employer] Patient Education ??? 2023 [employer]. Common Emergency Awareness Tips IS IT A [...] completing your survey. Thank you for choosing Lea Polk Award Nomination The GIOVANA (Diseases Attacking the Immune SYstem) Award is [...] signed up for this yet, please contact Lamiecco at [phone] to get signed up today. Patient Name: AMBROSIO RAMÍREZ I have received this information and my questions have been answered. Patient/Planning Engineer Name: Patient/Planning Engineer Signature: Relationship to Patient: Witness Name/Signature: Date: INPATIENT CLINICAL SUMMARY Observed: 01/2025 11:58 AM Status: C Source: [facility] Inpatient Clinical Summary [place] [address] Clinical Summary Person Information: Name: AMBROSIO RAMÍREZ Age: 64 Years : 1960 Sex: Male PCP: PRSICILA ODOM DO Marital Status: Single Race: White Ethnicity: or Language: Chinese Visit Id: Visit Reason: I71.40 Speciality: Acuity: Enc Type: Inpatient Med Service: Medical Arrival: 01/03/2025 09:57:29 Discharge: Dispo Type: Address: [address] [place] [phone] Provider Notes: Diagnosis: 2:Hyperlipidemia Problems Active BMI [...] up: With: Address: When: April Thompson MD [address] [place] [phone] 02/14/2025 9:15 AM Comments: Will need CTA run off prior to appt . The Cardiology office will get the order placed. Please call the office for futher instructions. Thank you. With: Address: When: PRISCILA ODOM [address] [place], [place] [phone] [facility] (1) Within 7 to 10 days Comments: Call for followup appointment Call physician if symptoms worsen Type Location Start Finish State Vascular Follow Up (FT) [facility] 02/14/2025 9:15 AM 02/14/2025 9:30 AM Confirmed Patient Education Information: Abdominal Aortic Aneurysm Endograft Repair, Care After; Abdominal Aortic Aneurysm Endograft Repair INPATIENT PATIENT SUMMARY Observed: 01/2025 11:45 AM Status: C Source: [facility] Inpatient Patient Summary [address] [address] Patient Discharge Instructions PERSON INFORMATION Name: AMBROSIO RAMÍREZ Date of : 1960 Current Date: 01/04/2025 11:45:36 PHYSICIANS Admitting Physician: April Thompson MD Primary Care Physician: PRISCILA ODOM DO PCP Comment: Discharge Diagnosis: 2:Hyperlipidemia Condition at Discharge: Improved AMBROSIO RAMÍREZ has been given the following list [...] results: None Follow up: With: Address: When: April Thompson MD [address] [place] [phone] Within 2 to 4 weeks Comments: Call for followup appointment and will need CTA run off prior to appt With: Address: When: PRISCILA ODOM [address] [place] [phone] [facility] () Within 7 to 10 days Comments: Call for followup appointment Call physician if symptoms worsen In the event that this physician does not participate in your insurance network, please consult with your insurance company to find a nearby participating provider. Comment: Esvin AMBROSIO RAMÍREZ, have received the attached patient education materials/instructions [...] these instructions at home: Medicines ??? Take yjkb-zzl-cblopxj and prescription medicines only as told by [...] and water are not available, use hand principal examiner. ? Change your dressing as told by [...] provider. Document Revised: 03/25/2023 Document Reviewed: 03/25/2023 [employer] Patient Education ? 2023 [employer]. Abdominal Aortic Aneurysm Endograft Repair Abdominal aortic [...] including vitamins, herbs, eye drops, creams, and fotq-ypz-dcuenxo medicines. ??? Any problems you or family [...] your provider tells you to. ??? Taking ktuo-nhs-gigneyp medicines, vitamins, herbs, and supplements. Tests You [...] provider. Document Revised: 03/25/2023 Document Reviewed: 03/25/2023 [employer] Patient Education ? 2023 [employer]. Medication Leaflets: You may receive a survey from Elva Avila asking you to rate your care experience. Your feedback is important and will help us understand what we do well and how we can improve the quality of care we provide to you, your loved ones and our community. It???s an honor to serve you. Thank you for choosing [facility] DISCHARGE SUMMARY Observed: 01/04/2025 10:43 AM Status: F Source: [facility] Discharge Summary Admission and Discharge Information Admit [...] April Barboza Within 2 to [address] [place] [phone]- Additional Instructions: Call for followup appointment and will need CTA run off prior to appt PRISCILA ODOM Within 7 to 10 days [address] [place] [address] [facility] (1) Additional Instructions: Call for followup appointment Call physician if symptoms worsen Patient Education Abdominal Aortic Aneurysm Endograft Repair, Care After Abdominal Aortic Aneurysm Endograft Repair Result Comment: Electronical ly Signed By: Montrell Flaherty DO\.br\Date and Time Signed: 01/04/25 10:43 EDT INTERDISCIPLINARY NOTE - ADARSH E CENTRIFUGE SEPARATOR TENDER Observed: 01/04/2025 9:47 AM Status: F Source: [facility] Interdisciplinary Note - Adarsh e Plate Finisher Patient is awake and alert in bed, previously rounded with Vascular. Patient is aware of plan to DC home today and family will transport. Pt declines any concerns or DC needs. Pt is independent at home. CRM following. . PCP verified and insurance information reviewed and DME discussed. Contact information provided and white board updated. Result Comment: Electronical ly Signed By: Johanne Aguayo RN\.melissa\Date and Time Signed: 01/04/25 09:48 EDT BMP Collected: 5:47 AM Status: F Source: [facility] TYPE CODE TESTS RESULT OUT OF RANGE REFERENCE UNITS LAB 2345-7(INC) GLUCOSE:MCNC :PT:SER/PLAS :QN: 102 Normal 55-199 mg/dL LAB 3094-0(LOINC) UREA NITROGEN:MCN C:PT:SER/PILAR S:QN: 14 Normal 5-21 mg/dL LAB 2160-0(LOINC) CREATININE:M CNC:PT:SER/P LAS:QN: 0.5 Normal 0.5-1.3 mg/dL LAB 3097-3(LOINC) UREA NITROGEN/CRE ATININE:MRTO :PT:SER/PLAS :QN: 28 High 10-20 No Units LAB 07596-1(LOINC) CALCIUM:MCNC :PT:SER/PLAS :QN: 8.7 Low 8.9-11.1 mg/dL LAB 2951-2(LOINC) SODIUM:SCNC: PT:SER/PLAS: QN: 134 Low 135-145 mmol/L LAB 2823-3([facility]) POTASSIUM:SC NC:PT:SER/PL :QN: 3.7 Normal 3.5-5.3 mmol/L LAB 2074-0([facility]) CHLORIDE:SCN C:PT:SER/PILAR S:QN: 107 Normal 101-111 mmol/L LAB 8-9([facility]) CARBON DIOXIDE:SCNC :PT:SER/PLAS :QN: 21 Normal 21-31 mmol/L LAB 21358-6([facility]) ANION GAP:SCNC:PT: SER/PLAS:QN: CALCULATED 10 Normal 6-16 mEq/L Performed By: #### [id number] # ### [facility] [address] [place] [address] EGFR Collected: 5:47 AM Status: F Source: [facility] TYPE CODE TESTS RESULT OUT OF RANGE REFERENCE UNITS LAB [id number]([facility]) eGFR 114 Normal >=59 mL/min/1 .7 3 m2 Performed By: #### [id number] #### [facility] [address] [place] [address] MAGNESIUM Collected: 01/04/2025 5:47 AM Status: F Source: [facility] TYPE CODE TESTS RESULT OUT OF RANGE REFERENCE UNITS LAB 44961-8([facility]) MAGNESIUM:MCN C:PT:SER/PLAS :QN: 2.1 Normal 1.3-2.4 mg/dL Performed By: #### [id number] # ### [facility] [address] [place] [address] PHOSPHORUS Collected: 01/04/2025 5:47 AM Status: F Source: [facility] TYPE CODE TESTS RESULT OUT OF RANGE REFERENCE UNITS LAB 75000-6([facility]) PHOSPHATE:MCN C:PT:SER/PLAS :QN: 3.9 Normal 1.9-4.6 mg/dL Performed By: #### [id number] # ### [facility] [address] [place] [address] CBC W/INDICES Collected: 01/04/2025 5:47 AM Status: F Source: [facility] TYPE CODE TESTS RESULT OUT OF RANGE REFERENCE UNITS LAB 20388-1([facility]) LEUKOCYTES^^COR RECTED FOR NUCLEATED ERYTHROCYTES:NC NC:PT:BLD:QN:AU TOMATED COUNT 9.8 Normal 4.0-11.0 E9/L LAB 789-8([facility]) ERYTHROCYTES:NC NC:PT:BLD:QN:AU TOMATED COUNT 4.7 Normal 4.3-5.9 E12/L LAB 718-7([facility]) HEMOGLOBIN:MCNC :PT:BLD:QN: 13.7 Normal 13.5-17.5 gm/dL LAB 4544-3([facility]) ERYTHROCYTE/BLO OD:VFR:PT:BLD:Q N:AUTOMATED COUNT 41.9 Normal 37.7-49.0 % LAB 788-0([facility]) OBSERVATION:DIS TWIDTH:PT:RBC:Q N:AUTOMATED COUNT 14.3 High 10.9-14.2 % LAB 785-6([facility]) HEMOGLOBIN:ENTM ASS:PT:RBC:QN:A UTOMATED COUNT 28.9 Normal 27.0-34.0 pg LAB 786-4([facility]) HEMOGLOBIN:ENTM CNC:PT:RBC:QN:A UTOMATED COUNT 32.7 Normal 31.4-36.0 gm/dL LAB 787-2([facility]) OBSERVATION:ENT MEANVOL:PT:RBC: QN:AUTOMATED COUNT 88.4 Normal 80.0-100.0 fL LAB 43880-2([facility]) PLATELET:ENTMEA NVOL:PT:BLD:QN: AUTOMATED COUNT 7.4 Normal 6.4-10.8 fL LAB [id number]([facility]) Platelet 163.0 Normal 150.0-500.0 E9/ L LAB 72475-2([facility]) ERYTHROCYTE SIZE:MORPH:PT:B LD:NOM: NORMAL Unknown Performed By: #### [id number] # ### [facility] [address] [place] [address] PROGRESS NOTE-PHYSICIAN Observed: 2024 8:04 PM Status: F Source: [facility] Progress Note-Physician Patient: AMBROSIO RAMÍREZ Age: 64 years Sex: Male : 1960 Associated Diagnoses: None Author: Parth Sparks Jr, DO Postoperative Information Postoperative disposition: Postoperative disposition: To PACU. Optimetrix number: Optimetrix number [id number]. Anesthetic utilized: General. Health Status Allergies: Allergic [...] Observed: 01/03 3:55 PM Status: C Source: [facility] Patient Education - Text INPATIENT PATIENT SUMMARY Observed: 12/2024 3:55 PM Status: F Source: [facility] Inpatient Patient Summary [address] [address] Patient Discharge Instructions PERSON INFORMATION Name: AMBROSIO RAMÍREZ Date of : 1960 Current Date: 01/03/2025 15:55:03 PHYSICIANS Admitting Physician: Jay DEVINE, April Barboza Primary Care Physician: PRISCILA ODOM DO PCP Comment: Discharge Diagnosis: 2:Hyperlipidemia Condition at Discharge: RAMÍREZ, AMBROSIO has been given the following list of [...] Follow up: With: Address: When: PRISCILA ODOM [address] [place], [place] [address] [phone] Business (1) Within 7 to 10 days Comments: Call for followup appointment Call physician if symptoms worsen In the event that this physician does not participate in your insurance network, please consult with your insurance company to find a nearby participating provider. Comment: I, AMBROSIO RAMÍREZ, have received the attached patient education materials/instructions [...] You may receive a survey from Elva CarZen asking you to rate your care experience. Your feedback is important and will help us understand what we do well and how we can improve the quality of care we provide to you, your loved ones and our community. It???s an honor to serve you. Thank you for choosing [facility] INPATIENT CLINICAL SUMMARY Observed: 12/2024 3:55 PM Status: F Source: [facility] Inpatient Clinical Summary [place] [address] Clinical Summary Person Information: Name: AMBROSIO RAMÍREZ Age: 64 Years : 1960 Sex: Male PCP: PRISCILA ODOM DO Marital Status: Single Race: White Ethnicity: or Language: Chinese Visit Id: Visit Reason: I71.40 Speciality: Acuity: Enc Type: Inpatient Med Service: Medical Arrival: 01/03/2025 09:57:29 Discharge: Dispo Type: Address: [address] [place] [address] [phone] Provider Notes: Diagnosis: 2:Hyperlipidemia Problems Active BMI [...] Thompson MD Follow up: With: Address: When: PRISCILA ODOM [address] [place] [address] [id number] [facility] ([employer] Within 7 to 10 days Comments: Call for followup appointment Call physician if symptoms worsen Patient Education Information: HISTORY AND PHYSICAL Observed: 3:40 PM Status: F Source: [facility] History and Physical Basic Information Admit Date/Time:01/03/2025 [...] or other symptoms at this time. 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 Discussed CODE STATUS with patient would like [...] aneurysm, without rupture, unspecified) Status post EVAR 01/03 Strict blood pressure monitoring keep normotensive As needed hydralazine, as needed labetalol Vascular checks as per vascular surgeon No chemical anticoagulation Begin aspirin 01/04 Monitor in ICU Ordered: Initial Hospital Care/Day Moderate 55 Minutes 50180 2. Hyperlipidemia (E78.5: Hyperlipidemia, unspecified) Statin Orders: [...] Once, PRN heparin 1000 units/mL injectable solution, 39821 unit(s)= 10 mL, IV Push, q5min, PRN [...] Comment: Electronical ly Signed By: Montrell Flaherty DO\.br\Date and Time Signed: 01/03/25 15:41 EDT OPERATIVE REPORT Observed: 01/03/2025 2:22 PM Status: F Source: [facility] Operative Report SURGERY DATE: 01/03/2025 PREOPERATIVE DIAGNOSIS: [...] condition. April Thompson M.D. ca Dictated: 01/03/2025 [id number] Transcribed: 01/03/2025 Result Comment: Electronical ly Signed By: April Thompson MD\.br\Date and Time Signed: 01/10/25 10:53 EDT MAIN OR PACU I RECORD Observed: 01/04/20 12:00 PM Status: F Source: [facility] Main OR PACU I Record PACU Phase I Document Type FT Summary Primary Physician: April Thompson MD Finalized Date/Time: 01/03/25 15:53:23 Pt. Name: AMBROSIO RAMÍREZ/Sex: 1960 Male Med Rec #: [id number] Physician: April Thompson MD Financial #: [id number] Pt. Type: P Room/Bed: / Admit/Disch: - [...] By: Beronica Anthony I 01/03/25 15:53 ABO/RH HISTORY CHECK Collected: 025 10:20 AM Status: F Source: [facility] TYPE CODE TESTS RESULT OUT OF RANGE REFERENCE UNITS LAB [id number]([facility]) ABO/Rh History Check Verified Hx Blood Type Normal Performed By: #### [id number] #### [facility] [address] [place] [address] ABO/RH Collected: 5 10:20 AM Status: F Source: [facility] TYPE CODE TESTS RESULT OUT OF RANGE REFERENCE UNITS LAB [id number](INC) ABO/Rh O POS Unknown Performed By: #### [id number] # ### [facility] [address] [id number] BLOOD BANK ID# Collected: 10:20 AM Status: F Source: [facility] TYPE CODE TESTS RESULT OUT OF RANGE REFERENCE UNITS LAB [id number](LOINC) BBID# [id number] Unknown Performed By: #### [id number] #### [facility] [address] [place] [address] ABSC Collected: 10:20 AM Status: F Source: [facility] TYPE CODE TESTS RESULT OUT OF RANGE REFERENCE UNITS LAB 76677305(LOINC) ABSC Gel Interp Negative Normal Performed By: #### [id number] #### [facility] [address] [place] [address] PROGRESS NOTE-PHYSICIAN Observed: 2024 7:27 AM Status: F Source: [facility] Progress Note-Physician Patient: AMBROSIO RAMÍREZ Age: 64 years Sex: Male : [...] list: All Problems Smoker / SNOMED CT 239674531 / Confirmed Added secondary to documentation in Social History. Elevated PSA / SNOMED CT 6215335475 / Confirmed Screening for malignant neoplasm of colon / SNOMED CT 112426514 / Confirmed BMI 25.0-25.9,adult / SNOMED CT 3762242714 / Confirmed Hyperlipidemia / SNOMED CT 30620074 / Confirmed Depression / SNOMED CT 54061698 / Confirmed BPH with obstruction/lower urinary tract symptoms / SNOMED CT 6553956103 / Confirmed AAA (abdominal aortic aneurysm) / SNOMED CT 386722360 / Confirmed Canceled: Enlarged prostate with urinary obstruction / SNOMED CT 0938914815 Histories Procedure history: None ([id number]). Social History Social & Psychosocial Habits Alcohol 12/27/2024 Risk Assessment: Denies Alcohol Use Substance Abuse 12/27/2024 Risk Assessment: Denies Substance Abuse Tobacco 12/31/2024 Tobacco Use: Former smoker, quit more . Physical Examination Airway: Mallampati classification: II (soft palate, fauces, uvula visible). Respiratory: adequate air exchange. Cardiovascular: Regular rhythm. Plan [place] [employer]esthesiologists (ASA) physical status classification: Class III. Anesthetic Preoperative Plan: Anesthesia General, and Patient educated on benefits, alternatives and inherent risk of anesthesia including, but not all inclusive, Allergic reactions, dental damage, nerve damage and cardio-pulmonary complications and wishes to proceed with anesthetic plan.. Result Comment: Electronical ly Signed By: Parth Sparks Jr, DO\.melissa\Date and Time Signed: 01/03/25 20:07 EDT BMP Collected: 3:52 PM Status: F Source: [facility] TYPE CODE TESTS RESULT OUT OF RANGE REFERENCE UNITS LAB 2345-7(LOINC) GLUCOSE:MCNC :PT:SER/PLAS :QN: 92 Normal 55-199 mg/dL LAB 3094-0(LOINC) UREA NITROGEN:MCN C:PT:SER/PILAR S:QN: 15 Normal 5-21 mg/dL LAB 2160-0(LOINC) CREATININE:M CNC:PT:SER/P LAS:QN: 0.6 Normal 0.5-1.3 mg/dL LAB 3097-3(LOINC) UREA NITROGEN/CRE ATININE:MRTO :PT:SER/PLAS :QN: 25 High 10-20 No Units LAB 26450-2(LOINC) CALCIUM:MCNC :PT:SER/PLAS :QN: 9.1 Normal 8.9-11.1 mg/dL LAB 2951-2(LOINC) SODIUM:SCNC: PT:SER/PLAS: QN: 135 Normal 135-145 mmol/L LAB 2823-3(LOINC) POTASSIUM:SC NC:PT:SER/PL :QN: 4.1 Normal 3.5-5.3 mmol/L LAB 2075-0([facility]) CHLORIDE:SCN C:PT:SER/PILAR S:QN: 104 Normal 101-111 mmol/L LAB 2027-9([facility]) CARBON DIOXIDE:SCNC :PT:SER/PLAS :QN: 24 Normal 21-31 mmol/L LAB 28459-0([facility]) ANION GAP:SCNC:PT: SER/PLAS:QN: CALCULATED 11 Normal 6-16 mEq/L Performed By: #### [id number] # ### [facility] [address] [place] [address] CBC W/ AUTO DIFF Collected: 12/27/2024 3:52 PM Statu s: F Source: [facility] TYPE CODE TESTS RESULT OUT OF RANGE REFERENCE UNITS LAB 51279-5([facility]) LEUKOCYTES^^CO RRECTED FOR NUCLEATED ERYTHROCYTES:N CNC:PT:BLD:QN: AUTOMATED COUNT 6.3 Normal 4.0-11.0 E9/L LAB 789-8([facility]) ERYTHROCYTES:N CNC:PT:BLD:QN: AUTOMATED COUNT 5.1 Normal 4.3-5.9 E12/L LAB 718-7([facility]) HEMOGLOBIN:MCN C:PT:BLD:QN: 15.3 Normal 13.5-17.5 gm/dL LAB 4544-3([facility]) ERYTHROCYTE/BL OOD:VFR:PT:BLD :QN:AUTOMATED COUNT 45.3 Normal 37.7-49.0 % LAB 788-0([facility]) OBSERVATION:DI STWIDTH:PT:RBC :QN:AUTOMATED COUNT 14.0 Normal 10.9-14.2 % LAB 785-6([facility]) HEMOGLOBIN:ENT MASS:PT:RBC:QN :AUTOMATED COUNT 30.1 Normal 27.0-34.0 pg LAB 786-4([facility]) HEMOGLOBIN:ENT MCNC:PT:RBC:QN :AUTOMATED COUNT 33.8 Normal 31.4-36.0 gm/dL LAB 787-2([facility]) OBSERVATION:EN TMEANVOL:PT:RB C:QN:AUTOMATED COUNT 88.9 Normal 80.0-100.0 fL LAB 69387-7([facility]) PLATELET:ENTME ANVOL:PT:BLD:Q N:AUTOMATED COUNT 7.9 Normal 6.4-10.8 fL LAB 38410514([facility]) Platelet 199.0 Normal 150.0-500.0 E9/ L LAB 52439-6([facility]) NEUTROPHILS/LE UKOCYTES:NFR:P T:BLD:QN: 56.8 Normal 36.0-75.0 % LAB 731-0([facility]) LYMPHOCYTES:NC NC:PT:BLD:QN:A UTOMATED COUNT 29.3 Normal 14.0-50.0 % LAB 742-7([facility]) MONOCYTES:NCNC :PT:BLD:QN:AUT OMATED COUNT 0.8 Normal 0.2-1.0 E9/L LAB 713-8([facility]) EOSINOPHILS/LE UKOCYTES:NFR:P T:BLD:QN:AUTOM ATED COUNT 1.0 Normal 0.0-8.0 % LAB 704-7([facility]) BASOPHILS:NCNC :PT:BLD:QN:AUT OMATED COUNT 0.5 Normal 0.0-2.0 % LAB 751-8([facility]) NEUTROPHILS:NC NC:PT:BLD:QN:A UTOMATED COUNT 3.6 Normal 2.0-7.5 E9/L LAB 98309-3([facility]) LYMPHOCYTES:NC NC:PT:BLD:QN: 1.8 Normal 1.0-4.0 E9/L LAB 70338-2([facility]) EOSINOPHILS:NC NC:PT:BLD:QN: 0.1 Normal 0.0-0.5 E9/L LAB 97223-1([facility]) BASOPHILS/LEUK OCYTES:NFR.DF: PT:BLD:QN:AUTO MATED COUNT 0.0 Normal 0.0-0.2 E9/L Performed By: #### [id number] # ### [facility] [address] [place] [address] EGFR Collected: 5 3:52 PM Status: F Source: [facility] TYPE CODE TESTS RESULT OUT OF RANGE REFERENCE UNITS LAB 90018884([facility]) eGFR 108 Normal >=59 mL/min/1 .7 3 m2 Performed By: #### [id number] #### [facility] [address] [place] [address] ABO/RH RETYPE Collected: 12/27/2024 3:52 PM Status: F Source: [facility] TYPE CODE TESTS RESULT OUT OF RANGE REFERENCE UNITS LAB 82609154(LOINC) ABO/Rh Retype Interp O POS Unknown Performed By: #### [id number] #### [facility] [address] [place] [address] 36 Observed: 12/21/2024 4:49 PM Status: COMPLETED Source: [facility] Regarding stress test and ec ho result from 12/10/2024: MD Mary Gerard MA Stress test is normal. His echo was also overall normal. Therefore the patient can proceed with abdominal aortic aneurysm repair from cardiac point of view with necessary anesthesia. He is considered to be low risk for perioperative cardiac events. Spoke with patient and informed him of message per Dr. Choe. Advised him I will fax clearance to Dr. Thompson's office. Cancelled his apt on Sunday 12/[address] Choe. Told him we'd bring him back in 6 months. Patient verbalized understanding. OFFICE VISIT Observed: 11/29/2024 11:40 AM Status: COMPLETED Source: [facility] [id number] Ambrosio Ramírez V 1960 M Date Provider Department Center 11/29/2024 [id number] CHOE [facility] Family History Problem Relation Age of Onset Breast cancer Mother Lung cancer Father Family Status - Relation Status Age at Mother Father Sister Alive Brother Alive Level of Service:39715 [place] OFFICE/OUTPATIENT NEW MODERATE MDM 45 MINUTES Reason for Visit and Comments: Hyperlipidemia [182] PROGRESS Observed: 11/29/2024 11:40 AM Status: COMPLETED Source: [facility] Office Cardiology Clinic Note Reason for cardiology consult: Preop clearance for abdominal aortic aneurysm repair Chief Complaint: No cardiac complaint HPI: Ambrosio Ramírez is a 64 y.o. male [...] 4 weeks or sooner if need Aimee Choe MD,[facility] CT CTA ABD AORTA W RUNOFF Observed: 10/31 11:41 AM Status: COMPLETED Source: [facility] CT CTA ABD AORTA W RUNOFF CT [...] : 07/08/2024 10:48 AM Status: COMPLETED Source: [facility] TYPE CODE TESTS RESULT OUT OF [...] use a race coefficient. Performed By: #### RAJ, 2433 1-1 #### [facility] ([id number]) [facility] [facility], [address] [place] [address] LIPID PROFILE Collected: 07/08/2024 10:48 AM Status: COMPLETED Source: [facility] TYPE CODE TESTS RESULT OUT OF [...] CHDL(LOINC) CHOLESTEROL:HDL 4.2 1.0-5.0 Performed By: #### RAJ, 2433 1-1 #### [facility] ([id number]) [address] [facility], [address] [place] [address] ALLERGIES DATE TYPE / CODE NAME / CODE REACTION SEVERITY SOURCE DR/815148140(SNOMED CT) No Known Allergies [facility] SYSTEMIC/135671996( SNOMED CT) NO KNOWN ALLERGIES [facility] Drug Class/228693983(SNO MED CT) NO KNOWN ALLERGIES [facility] ENCOUNTERS ADMIT/DISCHARGE ACCOUNT NUMBER ADMITTING ENCOUNTER CLASS LOCATION SOURCE 03/28/2025/03/28/20 [id number] April Thompson Ambulatory [facility]:FT.Vascul ar ClinicRoom: CD:[id number] [address] [place] [address] 02/08/2025/02/09/20 [id number] April Thompson Ambulatory [facility]in g:FT [facility] 02/03/2025/02/04/20 [id number] Ambulatory Buildin [address] [facility] Ambulatory PPG 01/22/2025/01/28/20 [id number] MATTHEW PERSON Inpatient Encounter Building: 4Room: 0441Bed: 01 [facility] 01/13/2025/01/14/20 [id number] Ambulatory Buildin [address] [facility] Ambulatory PPG 01/03/2025 [id number] April Thompson Inpatient Encounter FTMCBuildin g:ICRoom: QS32Gum: 01 [facility] 01/03/2025 [id number] April Thompson Inpatient Encounter [facility]Buildin g:CVRoom: CO72Ksm: 01 [facility] 01/03/2025/01/05/20 [id number] April Thompson Inpatient Encounter FTMCBuildin g:ICRoom: QP08Kmc: 01 [facility] 12/27/2024 [id number] April Thompson Ambulatory [facility]MCBuildin g:FT [facility] 12/27/2024/12/28/19 25 [id number] April Thompson Ambulatory [facility]in g:FT [facility] 12/23/2024/12/24/19 25 [id number] Ambulatory Buildin [address] [place] [address] Ambulatory PPG 12/02/2024/12/03/19 [id number] Ambulatory Buildin [address] [facility] Ambulatory PPG 11/29/2024/11/30/19 [id number] Ambulatory Building:CC B [facility] 11/25/2024/11/26/19 [id number] Ambulatory Building:PF M_CT [facility] 11/25/2024/11/26/19 [id number] Ambulatory Buildin [address] [facility] Ambulatory PPG 11/15/2024/11/16/19 [id number] Ambulatory Buildin [address] [facility] Ambulatory PPG 07/08/2024/07/08/20 24 [id number] Ambulatory Building:PT H_PML [facility] 07/08/2024/07/08/20 24 [id number] Ambulatory Buildin [address] [facility] Ambulatory PPG PAYERS ENCOUNTER GUARANTOR PAYER SUBSCRIBER SOURCE 03/28/2025 AMBROSIO MOHANSANDEE: [facility] 175Tel: ~~(4 1 (HP) Primary Insurance:PHCSPolicy Number: [id number] Date: [address] [address]RX: [facility] 02/08/2025 AMBROSIO MOHANSANDEE: [facility] 175Tel: ~~(4 1 (HP) Primary Insurance:PHCSPolicy Number: [id number] Date: [address] [address]LT: [facility] 02/03/2025 AMBROSIO MOHANSANDEE: [address] [address]Lfj: (HP) Primary Insurance:[facility] CAREPolicy Number: [id number] Date:2024-05-16 AMBROSIO MOHANOB: [id number] [address], [place] [address]Rfi: (HP) (WP) [facility] Ambulatory PPG 01/22/2025 AMBROSIO MOHANOB: [id number] [address], [place] [address]Rez: (HP) Primary Insurance:PHCSPolicy Number: [id number] Date:2024-05-16 AMBROSIO RAMÍREZ VDOB: [id number] [address], [place] [address]Rcr: (HP) [facility] 01/13/2025 AMBROSIO MOHANOB: [id number] [address], [place] [address]Joc: (HP) Primary Insurance:The [facility] Clinicicy Number: [id number] Date:2024-05-16 AMBROSIO MOHANOB: [id number], [place] [address]Tzx: (HP) (WP) [facility] 01/03/2025 AMBROSIO MOHANOB: [facility] 175Tel: ~~(4 1 (HP) Primary Insurance:PHCSPolicy Number: [id number] Date: [address] [address]AU: AMBROSIO [facility] 01/03/2025 AMBROSIO MOHANOB: [facility] 175Tel: ~~(4 1 (HP) Primary Insurance:PHCSPolicy Number: [id number] Date: [address] [address]ZE: [facility] 01/03/2025 AMBROSIO PANIAGUA: [facility] 175Tel: ~~(4 1 (HP) Primary Insurance:Miscellaneous Insurance CompanyPolicy Number: [id number] Date:2024-09-01 AMBROSIOJORGE MOORE [facility] 12/27/2024 AMBROSIO MOHANOB: [facility] 175Tel: ~([phone] (HP) Primary Insurance:PHCSPolicy Number: [id number] Date: [address] [address]TT: AMBROSIOJORGE MOORE [facility] 12/27/2024 AMBROSIO PANIAGUA: [facility] 175Tel: ~~(4 1 (HP) Primary Insurance:Miscellaneous Insurance CompanyPolicy Number: [id number] Date:2024-09-01 [facility] 12/23/2024 AMBROSIO PANIAGUA: [address] [address]Vjo: (HP) Primary Insurance:INOVA CAREPolicy Number: [id number] Date:2024-05-16 AMBROSIO PANIAGUA: [id number] [address] [address]Rnf: (HP) () [facility] 12/02/2024 AMBROSIO PANIAGUA: [address] [address]Nur: (HP) Primary Insurance:[employer]OVA CAREPolicy Number: [id number] Date:2024-05-16 AMBROSIO PANIAGUA: [id number] [address]Ovc: (HP) (WP) [facility]ulatory [facility] 11/29/2024 Primary Insurance:GENERIC COMMERCIALPolicy Number: [id number] Date:2024-09-01 AMBROSIO RAMÍREZ VDOB: [id number] [address] [place] [address] [facility] 11/25/2024 AMBROSIO MOHANOB: [address], [place] [address]Ykv: (HP) Primary Insurance:[employer]OVA CAREPolicy Number: [id number] Date:2024-05-16 AMBROSIO MOHANOB: [id number] [address], [place] [address]Ixd: (HP) (WP) [facility] 11/25/2024 AMBROSIO MOHANOB: [address], [place] [address]Zlu: (HP) Primary Insurance:[employer]OVA CAREPolicy Number: [id number] Date:2024-05-16 AMBROSIO MOHANOB: [id number] [address], [place] [address]Kkr: (HP) (WP) [facility]PG 11/15/2024 AMBROSIO MOHANOB: [address], [place] [address]Hht: (HP) Primary Insurance:[employer] CAREPolicy Number: [id number] Date:2024-05-16 AMBROSIO PANIAGUA: [id number] [address] [place] [address]Gff: (HP) (WP) [facility] 07/08/2024 AMBROSIO MOHANOB: [address], [place] [address]Wir: (HP) Primary Insurance:NOT GIVENPolicy Number: [id number] Date:2024-05-16 AMBROSIO PANIAGUA: [id number] [address], [place] [address]Fgm: (HP) (WP) [facility] 07/08/2024 AMBROSIO MOHANOB: [id number] [address], [place] [address]Equ: (HP) Primary Insurance:NOT GIVENPolicy Number: [id number] Date:2024-05-16 AMBROSIO PANIAGUA: [id number] [address], [place] [address]Tqu: (HP) (WP) [facility]
--- OUTSIDE RECORDS SUMMARY | 2025-06-01 08:31 | XMS_ITS | Clinical Summary ---
Author Organization [facility] Address [address] [place] [address] Care Team Providers Care Swiss Type Screw Machine Operator Name Role Phone Davion Stephenson DO Primary Care Provider [phone] Allergies No known active allergies Medications aspirin [...] Hyperlipidemia 03/18/2022 Abdominal aortic aneurysm (AAA) 02/01/2022 Family History Medical History Relation Name Comments [...] 1960 FIT-DNA 1960 FIT 1960 FOBT 1960 Medicare Initial Physical (IPPE) 1960 Sigmoidoscopy 1960 Depression Screening 1972 Adult Tetanus 1982 Zoster Vaccines (1 of 2) 2010 COVID-19 Vaccine (2023-2 5 season) 2025 Influenza Vaccine (#1) 2025 HIB Vaccines Aged Out No longer [...] on patient's age to complete this [place] [id number] Care Teams Swiss Type Screw Machine Operator Relationship Specialty Start Date End Date SachinGucciDavionDO wilfrid [address], [place] [address] PCP - General Family Medicine 11/29/24
--- OUTSIDE RECORDS SUMMARY | 2025-06-01 08:31 | XMS_ITS | Encounter Summary ---
Author Organization [employer] Address [facility] [id number] [address] [place] [address] Care Team Providers Care Chest Pain Coordinator Name Role Phone Davion Stephenson Primary Care Provider + [phone] Encounter Details Date Type Department Care Team (Late st Contact Info) Description 01/05/2025 Telephone [facility] Internal [facility] - Family Medicine [address] [place] [id number] Vanessa Umaña CMA Social History Tobacco Use Types Packs/Day Years Used Date Smoking Tobacco: Former Cigarettes 0.5 20 Smokeless Tobacco: Former Comments:Reports quit 2 ken hs ago Alcohol Use Standard Drinks/Week Comments Not Currently 0 (1 standard drink = 0.6 oz pur e alcohol) [facility] Utilities Answer Date Recorded In the past 12 months has [facility] electric, gas, oil, or water company threatened [...] week 07/08/2024 How often do you attend christian or jehovah's witness serv ices? Never 07/08/2024 Do you belong to any clubs o r organizations such as christian groups, unions, fraternal or athletic groups, or [...] Answer Date Recorded Total Score 0 11/15/2024 [facility] of Occupat ional Health - Occupational [...] Do you need help finding a [facility] and/or a training [...] - Family Medicine [address] [place] [address] Davion Stephenson DO [address], [place] [address] 07/11/2025 10:30 AM EST Office Visit [facility] - Family Medicine [address] [place] [address] Davion Stephenson DO [address], [place] [address] documented as of this encounter Visit Diagnoses Not on filedocumented in this encounter Additional Health Concerns Assessment Noted Time PHQ-9 Depression Total Score: 0 11/16/19 25 8:29 AM EDT documented as of this encounter Care Teams Chest Pain Coordinator Relationship Specialty Start Date End Date Davion Stephenson DO [address], [place] [address] PCP - General Family Medicine 07/10/22 documented as of this encounter
--- OUTSIDE RECORDS SUMMARY | 2025-06-01 08:31 | XMS_ITS | Encounter Summary ---
Author Organization [employer] Address [facility] [id number] [address] [place] [address] Care Team Providers Care Golf Range Attendant Name Role Phone Davion Stephenson Primary Care Provider + [phone] Encounter Details Date Type Department Care Team (Late st Contact Info) Description 01/28/2025 Orders Only [facility] Internal Medicine - Family Medicine [address] [place] [address] Ref Prov, [place] [address] Social History Tobacco Use Types Packs/Day Years Used Date Smoking Tobacco: Former Cigarettes 1.7 45.3 0 1979 - 12/22/2024 Smokeless Tobacco: Former Comments:Reports quit 2 ken hs ago Alcohol Use Standard Drinks/Week Comments Not Currently 0 (1 standard drink = 0.6 oz pur e alcohol) [facility] Utilities Answer Date Recorded In the past 12 months has [employer] electric, gas, oil, or water company threatened [...] week 07/08/2024 How often do you attend caodaism or yarsanism serv ices? Never 07/08/2024 Do you belong to any clubs o r organizations such as caodaism groups, unions, fraternal or athletic groups, or [...] Answer Date Recorded Total Score 0 01/13/2025 [facility] of Occupat ional Health - [...] Recorded Do you need help finding a [facility] career center and/or a training [...] - Family Medicine [address] [place] [address] Davion Stephenson DO [address], [place] [address] 07/11/2025 10:30 AM EST Office Visit [facility] - Family Medicine [address] [place] [address] Davion Stephenson DO [address], [place] [address] documented as of this encounter Procedures Procedure [...] documented as of this encounter Care Teams Golf Range Attendant Relationship Specialty Start Date End Date Davion Stephenson DO [address], [place] [address] PCP - General Family Medicine 07/10/22 documented as of this encounter
--- OUTSIDE RECORDS SUMMARY | 2025-06-01 08:31 | XMS_ITS | Encounter Summary ---
Author Organization [employer] Address [facility] [id number] [address] [place] [address] Care Team Providers Care Location Director Name Role Phone Davion Stephenson Primary Care Provider + [phone] Encounter Details Date Type Department Care Team (Late st Contact Info) Description 01/31/2025 Orders Only [facility] - Family Medicine [address] [place] [address] Ref Prov, [place] [address] Social History Tobacco Use Types Packs/Day Years Used Date Smoking Tobacco: Former Cigarettes 1.7 45.3 0 1979 - 12/22/2024 Smokeless Tobacco: Former Comments:Reports quit 2 ken hs ago Alcohol Use Standard Drinks/Week Comments Not Currently 0 (1 standard drink = 0.6 oz pur e alcohol) [facility] Utilities Answer Date Recorded In the past 12 months has [employer] electric, gas, oil, or water company threatened [...] week 07/08/2024 How often do you attend pentecostalism or anabaptist serv ices? Never 07/08/2024 Do you belong to any clubs o r organizations such as pentecostalism groups, unions, fraternal or athletic groups, or [...] Recorded Do you need help finding a [facility] [facility] career center and/or a training program? No [...] - Family Medicine [address] [place] [address] Davion Stephenson DO [address], [place] [address] 07/11/2025 10:30 AM EST Office Visit [facility] - Family Medicine [address] [place] [address] Davion Stephenson DO [address], [place] [address] documented as of this encounter Procedures Procedure [...] documented as of this encounter Care Teams Location Director Relationship Specialty Start Date End Date Davion Stephenson DO [address] [place] [address] PCP - General Family Medicine 07/10/22 documented as of this encounter
--- OUTSIDE RECORDS SUMMARY | 2025-06-01 08:31 | XMS_ITS | Clinical Summary ---
Author Organization [employer] Address [facility] [id number] [address] [place] [address] Care Team Providers Care Backshoe Person Name Role Phone Davion Stephenson DO Primary Care Provider + [phone] Allergies No known active allergies Medications rosuvastatin (CRESTOR) 10 mg tabletIndications: Hyperlipidemia, unspecified Take 1 tablet (10 mg total) by mouth in the morning. 90 tablet 3 4 Active bismuth subsalicylate (PEPTO BISMOL) 262 mg/15 mL suspension Take 30 mL by mouth every 6 (six) hours as needed for indigestion. Active metroNIDAZOLE (FLAGYL) 500 mg tablet Take [...] total) by mouth in the morning. Active Active Problems Problem Noted Date Diagnosed [...] Encounters Date Type Department Care Team Description 05/27/2025 Orders Only [facility] - Family Medicine [address] [place] [address] Ref Prov, Not In System from Last 3 Months Family History Medical [...] Recorded In the past 12 months has [employer] electric, gas, oil, or water [employer] threatened to shut off services in your [...] How often do you attend restorationist or islam serv ices? Never 07/08/2024 Do you belong [...] Answer Date Recorded Total Score 0 02/03/2025 [facility] of Occupat ional Health - Occupational Stress [...] Recorded Do you need help finding a [facility] career center and/or a training program? No [...] - Family Medicine [address] [place] [address] Davion Stephenson DO [address], [place] [address] 07/11/2025 10:30 AM EST Office Visit [facility] - Family Medicine [address] [place] [address] Davion Stephenson, [address], [place] [address] Health Maintenance Due Date Last Done Comments Zoster (Shingles) Vaccine ( 2) 2010 Influenza Vaccine 05/02/2025 DTaP,Tdap and Td Vaccines (1 - Tdap) 09/01/2025 Postponed from 09/02 (Patient Refused) Adult BMI Screening 02/03/2026 02/03/2025 Depression Screening 02/03/2026 02/03/2025 Tobacco Screening 02/03/2026 02/03/2025 Medical Devices Not on file Procedures Procedure Name Priority Date/Time Associated Diagnosis Comments CT ABDOMEN AND PELVIS W CONT Routine 05/27/2025 7:55 AM EDT from Last 3 Months Results * CT abdomen and pelvis with contrast (05/27/2025 7:55 AM EDT) Anatomical Region Laterality Modality Body, Abdomen, Body Covera N/A Compu ana Tomography us Not In System Ref Prov IMG CT ORDERABLES Final R esult from Last 3 Months Insurance [id number] Care Teams Backshoe Person Relationship Specialty Start Date End Date Davion Stephenson DO [address], [place] [address] PCP - General Family Medicine 07/10/22
--- OUTSIDE RECORDS SUMMARY | 2025-06-01 08:31 | XMS_ITS | Encounter Summary ---
Author Organization [employer] tem Address [id number] [address] [place] [address] Care Team Providers Care Tile Trimmer Name Role Phone Davion Stephenson Primary Care Provider + [phone] Encounter Details Date Type Department Care Team (Late st Contact Info) Description 11/22/2024 Orders Only [facility] Internal [facility] - Family Medicine [address] [place] [address] Alejandrina Felipe CMA Abdominal aortic aneurysm (AAA) without rupture, unspecified part ([facility]) Social History Tobacco Use Types Packs/Day Years Used Date Smoking Tobacco: Every Day Cigarettes 0.5 20 Smokeless Tobacco: Never Alcohol Use Standard Drinks/Week Comments Not Currently 0 (1 standard drink = 0.6 oz pur e alcohol) [facility] Utilities Answer Date Recorded In the past [...] week 07/08/2024 How often do you attend jainism or presybeterian serv ices? Never 07/08/2024 Do you belong to any clubs o r organizations such as jainism groups, unions, fraternal or athletic groups, or [...] Answer Date Recorded Total Score 0 11/15/2024 [facility] of Occupat ional Health - Occupational Stress [...] - Family Medicine [address] [place] [address] Davion Stephenson DO [address], [place] [address] 07/11/2025 10:30 AM EST Office Visit [facility] - Family Medicine [address] [place] [address] Davion Stephenson DO [address], [place] [address] documented as of this encounter Procedures Procedure Name Priority Date/Time Associated Diagnosis Comments US RETROPERITONEAL LIMITED Routine 11/22 10:00 AM EDT Abdominal aortic aneurysm (AAA) without rupture, unspecified part ([facility]) documented in this encounter Results [...] documented as of this encounter Care Teams Tile Trimmer Relationship Specialty Start Date End Date Davion Stephenson DO [address], [place] [address] PCP - General Family Medicine 07/10/22 documented as of this encounter
--- OUTSIDE RECORDS SUMMARY | 2025-06-01 08:31 | XMS_ITS | Clinical Summary ---
Author Organization [facility] Address [address], [address] [place] [address] Care Team Providers Care Motorcycle Repairer Name Role Phone RicardoDavion carey Jonah KERN Primary Care Provider Allergies Active Allergy Reactions Criticality Noted Date Comments Heparin 01/24/2025 HIT Medications rosuvastatin (CRESTOR) 10 MG tablet Take 1 tablet by mouth nightly for 30 doses 30 tablet 5 Active pantoprazole (PROTONIX) 40 MG tablet Take 1 tablet by mouth 2 times daily (before meals) for 14 days 28 tablet 5 Active predniSONE (DELTASONE) 5 MG tablet Take 4 tablets every morning for 7 days, 3 tablets daily for 7 days, 2 tablets daily for 7 days, then 1 tablet daily 100 tablet 2 5 Active predniSONE (DELTASONE) 2.5 MG tablet Prednisone 2.5 mg daily for a month then 2.5 mg every other day for a month then discontinue. 60 tablet 5 Active Active Problems Problem Noted Date Diagnosed Date H. pylori infection 01/26/2025 S/P AAA repair 01/23/2025 Thrombocytopenia 01/22/2025 Rash 01/22/2025 Encounters Date Type Department Care Team Description 05/03/2025 Orders Only [facility] Part of [address] [address] Lorie Palencia MA Thrombocytopenia 03/09/2025 2:45 PM EDT Office Visit [facility] Part of [address] [address] Darryl Hendrix MD Thrombocytopenia (Primary Dx) 03/09/2025 Orders Only [facility] Part of [address] [address] Darryl Hendrix MD Thrombocytopenia (Primary Dx); S/P AAA repair; H. pylori infection; Rash 03/07/2025 Orders Only [facility] Part of [address] [address] Lorie Palencia MA Thrombocytopenia from Last 3 Months Social History Tobacco Use Types Packs/Day Years Used Date Smoking Tobacco: Former Cigarettes 0.5 34.2 S tarted: 09/01/1990 Smokeless Tobacco: Never Alcohol Use Standard Drinks/Week Comments Never 0 (1 standard drink = 0.6 oz pur e alcohol) [facility] Utilities Answer Date Recorded In the past 12 months has th e [employer], gas, oil, or water [employer] threatened to shut off services in your [...] time in the past 12 m [facility], were you homeless or living in a longterm (including now)? No 01/22/2025 Food Insecurity Answer [...] Sign Reading Time Taken Comments Blood Pressure 135/88 03/09/2025 2:46 PM EDT Pulse 75 03/09/2025 2:46 PM EDT Temperature 36.7 C (98 F) 03/09/2025 2:46 PM EDT Respiratory Rate 18 03/09/2025 2:46 PM EDT Oxygen Saturation 100% 01/27/2025 8:06 AM EDT Inhaled Oxygen Concentration - - Weight 76.7 kg (169 lb) 03/09/2025 2:46 PM EDT Height 180.3 cm (5' 11 ) 02/02/2025 5:05 PM EDT Body Mass Index 23.57 02/02/2025 5:05 PM EDT Plan of Treatment Upcoming Encounters Date Type Department Care Team (Late st Contact Info) Description 06/15/2025 3:30 PM EDT Office Visit [facility] Part of [address] [address] Rolando Nicholson MD [address] [place] [address] F/U low platelets Health Maintenance Due Date Last Done Comments Depression Screen 1972 DTaP/Tdap/Td vaccine (1 - Tdap) 1979 Lipids 2000 Colonoscopy 2005 Colorectal Cancer Screen 2005 FIT/FOBT: Average risk 2005 Fecal-DNA (Cologuard): [place] ge risk 2005 Sigmoidoscopy/CT colonography 2005 Pneumococcal 50+ years Vacci ne (1 of 1 - PCV) 2010 Shingles vaccine (1 of 2) 2010 Flu vaccine (#1) 04/01/2025 COVID-19 Vaccine (1 - 2023-2 5 season) 2025 Respiratory Syncytial Virus (RSV) or age [...] Procedure Name Priority Date/Time Associated Diagnosis Comments HEPATITIS PANEL, ACUTE Routine 01/22/2025 12:17 PM EDT HIV SCREEN Routine 01/22/2025 9:34 AM EDT from Last 3 Months or Most Recently Relevant to Health Maintenance Results * Hepatitis Panel, Acute (01/22/2025 12:17 PM EDT) Pathologist [facility] Hepatitis B Surface Ag NONREACTIVE NONREACTIVE 01/22/2025 12:17 PM EDT [employer] Hepatitis C Ab NONREACTIVE NONREACTIVE 01/23/20 12:17 PM EDT [employer] Comment: The hepatitis C procedure used in [...] IgM NONREACTIVE NONREACTIVE 12/31 12:17 PM EDT [employer] Hep A IgM NONREACTIVE NONREACTIVE 01/22/2025 12:17 PM EDT [employer] Blood BLOOD SPECIMEN / Unknown 01/22/2025 12:17 PM EDT 01/22/2025 12:21 PM EDT Vitor Joseph MD IMMUNOLOGY ORDERABLES Final R esult Performing Organization Address City/[facility]/ZIP Co de Phone Number [employer] [address] [place] [address] * HIV Screen (01/22/2025 9:34 AM EDT) HIV Ag/Ab NONREACTIVE NONREACTIVE 01/22/2025 9:34 AM EDT [employer] Comment: No laboratory evidence of HIV infection. If acute HIV infection is suspected, consider testing for HIV-1 RNA. BLOOD SPECIMEN / Unknown 01/22/2025 9:34 AM EDT 01/22/2025 9:46 AM EDT Pérez Flynn MD IMMUNOL OGY ORDERABLES Final Result Performing Organization Address City/[facility] Co de Phone Number [employer] [address] [place] [address] from Last 3 Months or Most Recently Relevant to Health Maintenance [place] [address] [place] [address] Advance Directives Documents on File Type Date Recorded Patient Cold Type Artist Expl anation ACP-Advance Directive 01/28/2025 7:41 PM * Full Code (Latest Code Status on File) Date Activated Date Inactivated Comments 01/22/2025 3:47 AM 01/27/2025 2:42 PM Care Teams Motorcycle Repairer Relationship Specialty Start Date End Date Davion Stephenson DO [address] [place] [phone] PCP - General Family Medicine 01/22/25
--- OUTSIDE RECORDS SUMMARY | 2025-06-01 08:31 | XMS_ITS | Encounter Summary ---
Author Organization [employer] Address [id number] [address] [place] [address] Care Team Providers Care Lead Pastor Name Role Phone Davion Stephenson Primary Care Provider + [phone] Encounter Details Date Type Department Care Team (Late st Contact Info) Description 01/13/2025 Orders Only [facility] Internal [facility] - Family Medicine [address] [place] [address] Ref Prov, [place] [address] Social History Tobacco Use Types Packs/Day Years Used Date Smoking Tobacco: Former Cigarettes 1.7 45.3 0 1979 - 12/22/2024 Smokeless Tobacco: Former Comments:Reports quit 2 ken hs ago Alcohol Use Standard Drinks/Week Comments Not Currently 0 (1 standard drink = 0.6 oz pur e alcohol) [facility] Utilities Answer Date Recorded In the past 12 months has [employer] electric, gas, oil, or water company [...] week 07/08/2024 How often do you attend mandaen or yazdanism serv ices? Never 07/08/2024 Do you belong to any clubs o r organizations such as mandaen groups, unions, fraternal or athletic groups, or [...] Answer Date Recorded Total Score 0 01/13/2025 [facility] of Occupat ional Health - Occupational Stress [...] Recorded Do you need help finding a little company of [facility] career center and/or a training program? [...] Medicine [address] [place] [address] Davion Stephenson, [address], [place] [address] 07/11/2025 10:30 AM EST Office Visit [facility] - Family Medicine [address] [place] [address] Davion Stephenson DO [address] [facility], [place] [address] documented as of this encounter Procedures Procedure Name Priority Date/Time Associated Diagnosis Comments MULTIPLE LABS Routine 12/27/2024 10:57 AM EDT NUC STRESS LEXISCAN Routine 12/10/2024 10:51 AM EDT documented in this encounter Results * Multiple labs (12/27/2024 10:57 AM EDT) us Not In System Ref Prov [place] IMAGING Final Res ult MANUALLY TRANSCRIBED RESULTS [...] documented as of this encounter Care Teams Lead Pastor Relationship Specialty Start Date End Date Davion Stephenson DO [address] [facility], [place] [address] PCP - General Family Medicine 07/10/22 documented as of this encounter
--- OUTSIDE RECORDS SUMMARY | 2025-06-01 08:31 | XMS_ITS | Encounter Summary ---
Author Organization [employer] tem Address [id number] [address] [place] [address] Care Team Providers Care Salon Shampoo Assistant Name Role Phone Davion Stephenson Primary Care Provider + [phone] Encounter Details Date Type Department Care Team (Late st Contact Info) Description 01/05/2025 Orders Only [facility] - Family Medicine [address] [place] [address] Ref Prov, [place] [address] Social History Tobacco Use Types Packs/Day Years Used Date Smoking Tobacco: Former Cigarettes 0.5 20 Smokeless Tobacco: Former Comments:Reports quit 2 ken hs ago Alcohol Use Standard Drinks/Week Comments Not Currently 0 (1 standard drink = 0.6 oz pur e alcohol) [facility] Utilities Answer Date Recorded In the [...] week 07/08/2024 How often do you attend amish or temple serv ices? Never 07/08/2024 Do you belong to any clubs o r organizations such as amish groups, unions, fraternal or athletic groups, or [...] Recorded Total Score 0 11/15/2024 [facility] of Occupat ionla Health - Occupational Stress Questionnaire Answer Date [...] Recorded Do you need help finding a [facility] career [facility] and/or a training [...] Family Medicine [address] [place] [address] Davion Stephenson DO [address], [place] [address] 07/11/2025 10:30 AM EST Office Visit [facility] - Family Medicine [address] [place] [address] Davion Stephenson DO [address], [place] [address] documented as of this encounter Procedures Procedure [...] documented as of this encounter Care Teams Salon Shampoo Assistant Relationship Specialty Start Date End Date Davion Stephenson DO [address], [place] [address] PCP - General Family Medicine 07/10/22 documented as of this encounter
--- OUTSIDE RECORDS SUMMARY | 2025-06-01 08:31 | XMS_ITS | Encounter Summary ---
Author Organization [employer] Address [id number] [address] [place] [address] Care Team Providers Care Food Production Worker Name Role Phone Davion Stephenson DO Primary Care Provider + [phone] Encounter Details Date Type Department Care Team (Late Contact Info) Description 11/29/2022 Orders Only [facility] Internal [facility] - Family Medicine [address] [place] [phone] Vesta Schwartz, PRODUCTION ARTIST-PLY BANDER [address] [place] [address] [place], [place] [id number] Social History Tobacco Use Types Packs/Day Years [...] Medicine - Family Medicine [address] [place] [address] Davion Stephenson DO [address] [place] [address] 07/11/2025 10:30 AM EST Office Visit [facility] - Family Medicine [address] [place] [address] Davion Stephenson DO [address], [place] [address] documented as of this encounter Visit Diagnoses Not on filedocumented in this encounter Care Teams Food Production Worker Relationship Specialty Start Date End Date Davion Stephenson DO [address], [facility] [place], [place] [phone] PCP - General Family Medicine 07/10/22 documented as of this encounter
[2025-06-01 08:56] LABS: Hematocrit 45.3 % (42.0-54.0); Hemoglobin 15.3 g/dL (14.0-18.0); Immature Granulocytes Abs Auto 0.02 10^3/uL (0.00-0.03); Immature Granulocytes Pct Auto 0.3 % (0.0-0.5); Lymphocytes Absolute Auto 2.3 10^3/uL (1.2-3.8); Mean Corpuscular HGB Conc 33.8 g/dL (29.9-35.2); Mean Corpuscular Hemoglobin 27.5 pg (25.9-34.0); Mean Corpuscular Volume 81.3 fL (80.0-94.0); Platelet Count 167 10^3/uL (150-450); Red Blood Count 5.57 10^6/uL (4.70-6.10); White Blood Count 5.9 10^3/uL (4.0-11.0)
== END 2025-06-01 08:27 | disposition home or self-care (01) ==
PROVIDERS: PCP Family Medicine; Visit Provider Internal Medicine Medical Oncology
DX: D69.6 Thrombocytopenia, unspecified (principal); Z98.890 Other specified postprocedural states; Z86.79 Personal history of other diseases of the circulatory system; A04.8 Other specified bacterial intestinal infections; R21 Rash and other nonspecific skin eruption
CPT/HCPCS: 36415; 85025